=== PATIENT | female | born 1950 | race Caucasian/White ===

== ENCOUNTER 2023-06-06 13:29 | Outpatient (OUT) | payer MEDICARE, MEDICAID, SELFPAY ==
--- NOTE | 2023-06-06 13:46 | US_ITS ---
[place] [id number] Patient Name: MATEO MANSFIELD MRN: [id number] date: 1950 Sex: F Assigned Patient Location: [place] Current Patient Location: Accession/Order Number: [id number] Exam Date: 06/06/2023 13:52 Report Date: 06/06/2023 18:03 At the request of: ROBERT SCHWARTZ Procedure: US venous doppler LE RT EXAMINATION: US venous doppler LE RT HISTORY: Right Leg Pain M79.604 COMPARISON: No relevant comparison available. TECHNIQUE: Grayscale, color and Doppler FINDINGS: Region: Right leg Thrombus: None Flow: Normal Compressibility: Normal Augmentation: Normal US/US venous doppler LE RT IMPRESSION: No deep or superficial vein thrombus identified in the right leg *Exam performed in accordance with [facility] practice guidelines- Peripheral venous ultrasound, January 30, 2010. Electronically authenticated by: CHAITANYA CROCKER Date: 06/06/2023 18:03
== END 2023-06-06 13:30 | disposition home or self-care (01) ==
PROVIDERS: PCP Family Medicine; Visit Provider Family Medicine
DX: M79.604 Pain in right leg (principal)
CPT/HCPCS: 93971

== ENCOUNTER 2023-06-10 11:55 | Emergency (ER) | payer MEDICARE, MEDICAID, SELFPAY ==
--- NOTE | 2023-06-10 12:00 | ED_ITS ---
HPI - General Adult General Chief complaint: Allergic Reaction Stated complaint: RASH ON R SIDE OF BODY & BACK/REAR/ITCHY/PAIN Time Seen by Provider: 06/10/23 12:00 History of Present Illness HPI narrative: Patient presents to emergency department complaining of a rash. She states she has a rash to the right flank posteriorly and in bilateral gluteus. She states very itchy she has been applying recently without any relief. She states her skin is very dry. She is ALLERGIC to luis, She has not changed any detergents, soap, she states all of her clothes on embedding has been laundered. She has not been to any hotels. She is with her picture that they would not insect bites. Patient denies any fever, or chills. She denies any pain. Related Data Home Medications Medication Instructions Recorded Confirmed alprazolam 1 mg tablet 1 mg PO BID PRN anxiety 06/10/23 06/10/23 gabapentin 300 mg capsule 300 mg PO DAILY 06/10/23 06/10/23 latanoprost 0.005 % eye drops 1 drp ophthalmic (eye) .hs 06/10/23 06/10/23 levetiracetam 500 mg tablet 500 mg PO BID 06/10/23 06/10/23 metoprolol tartrate 25 mg tablet 25 mg PO BID 06/10/23 06/10/23 oxybutynin chloride 5 mg tablet 5 mg PO BID 06/10/23 06/10/23 oxycodone-acetaminophen 7.5 mg-325 2 tab PO DAILY PRN pain 06/10/23 06/10/23 mg tablet simvastatin 40 mg tablet 40 mg PO DAILY 06/10/23 06/10/23 Previous Rx's Medication Instructions Recorded diphenhydramine HCl 25 mg capsule 25 mg PO Q8H PRN itching #20 caps 06/10/23 (Benadryl) famotidine 20 mg tablet (Pepcid) 20 mg PO DAILY #10 tabs 06/10/23 prednisone 20 mg tablet 20 mg PO BID 5 days #10 tabs 06/10/23 Allergies Allergy/AdvReac Type Severity Reaction Status Date / Time Penicillins Allergy Severe Hives Verified 06/10/23 12:07 phenobarbital Allergy Severe Hives Verified 06/10/23 12:07 phenytoin [From Dilantin] Allergy Severe Hives Verified 06/10/23 12:07 luis Allergy Severe Redness of Uncoded 06/10/23 12:07 Skin Review of Systems ROS Status of ROS 10 or more systems reviewed and unremarkable except as noted in history and below [facility] Medical History (Updated 06/10/23 @ 12:47 by Barbara rBown MD) Social History Smoking status: Current every day smoker Exam Narrative Exam Narrative: Nurses notes and vital signs reviewed and patient is not hypoxic. General: Nontoxic, Well-appearing and in no apparent distress. Skin: Warm, dry, no pallor noted. Right flank will receive maculopapular rash with some excoriation noted. There are no vesicles. There is bilateral gluteal rash with erythema and scaly over the areas of pressure when seated. There are no vesicles, no signs of cellulitis, no ulceration. Head: Normocephalic, atraumatic. Neck: Supple, non-tender. Eye: Pupils are equal, round and EOMI. No scleral icterus. Ears, Nose, Mouth, and Throat: TM clear, no posterior oropharynx erythema or nasal mucosal hypertrophy, uvula is mid-line Oral mucosa is moist Cardiovascular: Regular Rate and Rhythm without murmur, gallop or rub. Respiratory: No accessory muscle use or respiratory distress. Lungs are clear to auscultation, no wheezing, rales or rhonchi Chest Wall: no tenderness Back: No midline thoracic or lumbar vertebral tenderness. No CVA tenderness Musculoskeletal: normal ROM, no calf or popliteal tenderness, no lower extremity edema/swelling GI: Abdomen is soft, non-distended. Normal bowel sounds. No masses appreciated. No tenderness to palpation. No rebound, guarding, or rigidity noted. Neurological: A&O x4. No cranial nerve dysfunction observed. No truncal ataxia. Moves all extremities. Sensation intact. Psychiatric: Cooperative and interactive. Normal mood and affect. Constitutional Vital Signs, click to edit/add: Last Vital Signs Temp 98.5 F 06/10/23 12:08 Pulse 69 06/10/23 12:08 Resp 16 06/10/23 12:08 BP 160/81 H 06/10/23 12:08 Pulse Ox 95 06/10/23 12:08 O2 Del Method Room Air 06/10/23 12:08 Course Vital Signs Vital signs: Vital Signs Temperature 98.5 F 06/10/23 12:08 Pulse Rate 69 06/10/23 12:08 Respiratory Rate 16 06/10/23 12:08 Blood Pressure 160/81 H 06/10/23 12:08 Pulse Oximetry 95 06/10/23 12:08 Oxygen Delivery Method Room Air 06/10/23 12:08 Temperature 98.5 F 06/10/23 12:08 Pulse Rate 69 06/10/23 12:08 Respiratory Rate 16 06/10/23 12:08 Blood Pressure 160/81 H 06/10/23 12:08 Pulse Oximetry 95 06/10/23 12:08 Oxygen Delivery Method Room Air 06/10/23 12:08 Medical Decision Making MDM Narrative Medical decision making narrative: Patient has been using hydrocortisone cream. She was given a prescription for a steroid, Famotidine, and Benadryl. At this time the patient is without objective evidence of an acute process requiring hospitalization or inpatient management. The patient has remained hemodynamically stable. No additional indication for emergent studies at this time. I answered all questions. Discussed discharge instructions including standard anticipatory guidance and what should prompt a return to the emergency department, including if they get worse are not getting better or develops any new or concerning symptoms. I've given them specific time frame in which to follow-up, and who to follow-up with. The patient demonstrates understanding. Patient is nontoxic and stable for discharge with outpatient follow-up. This note was created with the assistance of a speech recognition program. Although the intention is to generate documents that actually reflects the content of the visit, no guarantees can be provided that every mistake has been identified and corrected by editing. Discharge Plan Discharge Chief Complaint: Allergic Reaction Clinical Impression: Allergic (intrinsic) eczema Patient Disposition: Home, Self-Care Time of Disposition Decision: 12:45 Condition: Good Prescriptions / Home Meds: New prednisone 20 mg tablet 20 mg PO BID 5 Days Qty: 10 0RF famotidine [Pepcid] 20 mg tablet 20 mg PO DAILY Qty: 10 0RF diphenhydramine HCl [Benadryl] 25 mg capsule 25 mg PO Q8H PRN (Reason: itching) Qty: 20 0RF No Action alprazolam 1 mg tablet 1 mg PO BID PRN (Reason: anxiety) gabapentin 300 mg capsule 300 mg PO DAILY latanoprost 0.005 % drops 1 drp OPHTHALMIC (EYE) .hs levetiracetam 500 mg tablet 500 mg PO BID metoprolol tartrate 25 mg tablet 25 mg PO BID oxycodone-acetaminophen 7.5-325 mg tablet 2 tab PO DAILY PRN (Reason: pain) simvastatin 40 mg tablet 40 mg PO DAILY oxybutynin chloride 5 mg tablet 5 mg PO BID Instructions: Eczema (ED), Dermatitis (ED) Stand Alone Forms: Portal Instructions Referrals: Olga Holloway MD [Primary Care Provider] - 1 week Discharge Date/Time: 06/10/23 13:00
[2023-06-10 12:08] VITALS: BP 160/81; PULSE 69; RESP 16; TEMP 36.9; O2SAT 95; BMI 33.3
== END 2023-06-10 13:00 | disposition home or self-care (01) ==
PROVIDERS: Emergency Provider Emergency Medicine; PCP Family Medicine
DX: L23.9 Allergic contact dermatitis, unspecified cause (principal); Z79.899 Other long term (current) drug therapy; F17.210 Nicotine dependence, cigarettes, uncomplicated
CPT/HCPCS: 99281

== ENCOUNTER 2023-07-29 15:41 | Emergency (ER) | payer MEDICARE, MEDICAID, SELFPAY ==
[2023-07-29 15:47] VITALS: BP 148/86; PULSE 108; RESP 18; TEMP 36.5; O2SAT 96; BMI 22.3
--- NOTE | 2023-07-29 15:55 | CT_ITS ---
The [address] [place], [place] [address] Patient Name: MATEO MANSFIELD MRN: [id number] date: 1950 Sex: F Assigned Patient Location: ER Current Patient Location: ED.MAIN Accession/Order Number: [id number] Exam Date: 07/29/2023 17:03 Report Date: 07/29/2023 18:46 At the request of: MARYJO BAIRES Procedure: CT abdomen pelvis w con EXAMINATION: CT abdomen pelvis w con REASON FOR EXAM: Abdominal pain COMPARISON: 04/05/2021. FINDINGS: Lung bases: No nodule, infiltrate or effusion. Abdominal findings: There is no evidence for acute pancreatitis. The main pancreatic duct drains to a minor papilla. There is mild distention of the gallbladder although no gallbladder wall thickening. The common bile duct measures 7 mm distally. There is no mass in the liver. There are numerous calcified granulomata in the spleen. A simple cyst measuring 2.2 cm mid left kidney. No hydronephrosis. There is atherosclerotic calcification of the abdominal aorta. No adenopathy in the retroperitoneum or mesentery. No dilatation of the small or large bowel. The appendix is normal. No free air. Small right adrenal adenoma is unchanged. Pelvic findings: Streak artifact from the left hip arthroplasty limits pelvic imaging. Prior hysterectomy. No distention of urinary bladder. No herniation of bowel into the inguinal regions. CT/CT abdomen pelvis w con IMPRESSION: 1. No evidence for acute or chronic pancreatitis. 2. Mild distention of the gallbladder without gallbladder wall thickening. Common bile duct caliber of 7 mm upper limits of normal. 3. No acute inflammatory process identified in the abdomen or pelvis. 4. No evidence for bowel obstruction or perforation. Electronically authenticated by: NOMI CASTELAN Date: 07/29/2023 18:46
--- NOTE | 2023-07-29 15:57 | ED.ABDPAIN1 ---
HPI - Abdominal Pain General Chief Complaint: Abdominal Pain Stated Complaint: ABD PAIN Time Seen by Provider: 07/29/23 15:43 History of Present Illness HPI narrative: patient is a 73-year-old female who presents to the emergency department for the evaluation of increasing abdominal pain. She states she has had diffuse left-sided abdominal pain for some time, over the last week it seems to be more intense. She has had no fevers, chills, nausea, vomiting, diarrhea. She last had a bowel movement three days ago. She does have a previous history of pancreatitis. She has had a total hysterectomy as well as an exploratory laparotomy, she denies any other abdominal surgeries. She states she had pancreatitis 2-3 years ago and was hospitalized in [place], she states she was told that the pancreatitis was secondary to long-term Depakote usage. She denies urinary symptoms. No sick contacts in the home. She reports most of her pain in the left lower quadrant radiating to the left upper quadrant and today she has noted minimal epigastric pain. Related Data Home Medications Medication Instructions Recorded Confirmed alprazolam 1 mg tablet 1 mg PO BID PRN anxiety 06/10/23 06/10/23 gabapentin 300 mg capsule 300 mg PO DAILY 06/10/23 06/10/23 latanoprost 0.005 % eye drops 1 drp ophthalmic (eye) .hs 06/10/23 06/10/23 levetiracetam 500 mg tablet 500 mg PO BID 06/10/23 06/10/23 metoprolol tartrate 25 mg tablet 25 mg PO BID 06/10/23 06/10/23 oxybutynin chloride 5 mg tablet 5 mg PO BID 06/10/23 06/10/23 oxycodone-acetaminophen 7.5 mg-325 2 tab PO DAILY PRN pain 06/10/23 06/10/23 mg tablet simvastatin 40 mg tablet 40 mg PO DAILY 06/10/23 06/10/23 Previous Rx's Medication Instructions Recorded diphenhydramine HCl 25 mg capsule 25 mg PO Q8H PRN itching #20 caps 06/10/23 (Benadryl) famotidine 20 mg tablet (Pepcid) 20 mg PO DAILY #10 tabs 06/10/23 prednisone 20 mg tablet 20 mg PO BID 5 days #10 tabs 06/10/23 ciprofloxacin HCl 500 mg tablet 500 mg PO BID 7 days #14 tabs 07/29/23 (Cipro) hyoscyamine sulfate 0.125 mg 0.125 mg PO Q6H PRN abdominal pain 07/29/23 tablet (Levsin) #12 tabs ondansetron 4 mg disintegrating 4 mg PO Q6H PRN nausea and 07/29/23 tablet vomiting #12 tabs Allergies Allergy/AdvReac Type Severity Reaction Status Date / Time Penicillins Allergy Severe Hives Verified 07/29/23 15:50 phenobarbital Allergy Severe Hives Verified 07/29/23 15:50 phenytoin [From Dilantin] Allergy Severe Hives Verified 07/29/23 15:50 luis Allergy Severe Redness of Uncoded 07/29/23 15:50 Skin Review of Systems ROS Constitutional Denies: fever or chills Cardiovascular Denies: chest pain Respiratory Denies: shortness of breath or cough Gastrointestinal Reports: abdominal pain; Denies: nausea, vomiting or diarrhea Genitourinary Denies: painful urination Musculoskeletal Denies: back pain Integumentary/Breast Denies: rash Neurological Denies: headache PFSH PFS Medical History (Updated 07/29/23 @ 18:39 by ZORAIDA King) Social History Smoking status: Current every day smoker Exam Narrative Exam Narrative: Gen.: Awake, alert, in no distress Head: Normocephalic, atraumatic ENT: Moist mucous membranes Respiratory: No respiratory distress, lungs clear bilaterally Cardio: Regular rate and rhythm Gastrointestinal: Abdomen is soft, nondistended and nontender to palpation; no guarding or rebound. Well-healed surgical incision over the midline suprapubic abdomen Extremities: Moves extremities equally Psych: Normal mood and affect Neuro: No focal neuro deficit Skin: Warm, dry, intact Constitutional Vital Signs, click to edit/add: Last Vital Signs Temp 97.7 F 07/29/23 15:47 Pulse 108 H 07/29/23 15:47 Resp 18 07/29/23 15:47 BP 148/86 H 07/29/23 15:47 Pulse Ox 96 07/29/23 15:47 O2 Del Method Room Air 07/29/23 15:47 Course Vital Signs Vital signs: Vital Signs Temperature 97.7 F 07/29/23 15:47 Pulse Rate 108 H 07/29/23 15:47 Respiratory Rate 18 07/29/23 15:47 Blood Pressure 148/86 H 07/29/23 15:47 Pulse Oximetry 96 07/29/23 15:47 Oxygen Delivery Method Room Air 07/29/23 15:47 Temperature 97.7 F 07/29/23 15:47 Pulse Rate 108 H 07/29/23 15:47 Respiratory Rate 18 07/29/23 15:47 Blood Pressure 148/86 H 07/29/23 15:47 Pulse Oximetry 96 07/29/23 15:47 Oxygen Delivery Method Room Air 07/29/23 15:47 MDM - Abdominal Pain MDM Narrative Medical decision making narrative: patient treated with IV fluids, Toradol, Levsin, Zofran, Protonix. Abdomen is soft and benign in the Emergency Room, lab studies show minimal renal insufficiency and mild leukocytosis. LFTs, total bilirubin and lipase are unremarkable and urine specimen shows contaminated urinary tract infection but given the patient's abdominal pain and age we will treat for urinary tract infection with Cipro. She is discharged home with Zofran and Levsin. Her CT scan does show distention of the gallbladder with no thickening and common bile duct at the upper limit of normal, she has no right upper quadrant tenderness, normal bilirubin and LFTs. She is encouraged follow-up with her PCP and return to the Emergency Room if symptoms change or worsen Medical Records Attestation: I reviewed the patient's medical records. Lab Data Attestation: I reviewed the patient's lab results. Labs: Lab Results 07/29/23 Range/Units 16:00 WBC 13.6 H (4.0-11.0) 10^3/uL RBC 5.60 H (4.20-5.40) 10^6/uL Hgb 17.0 H (12.0-16.0) g/dL Hct 52.2 H (36.0-48.0) % MCV 93.2 (81.0-99.0) fL MCH 30.4 (26.7-34.0) pg MCHC 32.6 (29.9-35.2) g/dL RDW 14.0 (11.0-15.0) % Plt Count 762 H (150-450) 10^3/uL MPV 10.7 (9.5-13.5) fL Neut % (Auto) 58.8 (43.0-75.0) % Lymph % (Auto) 30.2 (20.5-60.0) % [place] % (Auto) 7.6 (1.7-12.0) % Eos % (Auto) 2.6 (0.9-7.0) % Baso % (Auto) 0.4 (0.2-2.0) % Neut # (Auto) 8.0 H (1.4-6.5) 10^3/uL Lymph # (Auto) 4.1 H (1.2-3.8) 10^3/uL [place] # (Auto) 1.0 H (0.3-0.8) 10^3/uL Eos # (Auto) 0.4 (0.0-0.7) 10^3/uL Baso # (Auto) 0.1 (0.0-0.1) 10^3/uL Abs Immat Gran (auto) 0.05 H (0.00-0.03) 10^3/uL Imm/Tot Granulo (auto) 0.4 (0.0-0.5) % Sodium 135 L (136-145) mmol/L Potassium 3.7 (3.5-5.1) mmol/L Chloride 96 L (98-107) mmol/L Carbon Dioxide 26.9 (21.0-32.0) mmol/L Anion Gap 15.8 BUN 20.0 H (7.0-18.0) mg/dL Creatinine 1.44 H (0.55-1.02) mg/dL Est GFR ( Amer) 43 L (>=60) Est GFR (Non-Af Amer) 35 L (>=60) BUN/Creatinine Ratio 13.9 Glucose 122 H (74-106) mg/dL Lactate 1.9 (0.4-2.0) mmol/L Calcium 9.8 (8.5-10.1) mg/dL Total Bilirubin 0.4 (0.2-1.0) mg/dL AST 26 (15-37) U/L ALT 30 (14-59) U/L Alkaline Phosphatase 76 (46-116) U/L Total Protein 8.1 (6.4-8.2) g/dL Albumin 4.2 (3.4-5.0) g/dL Globulin 3.9 g/dL Albumin/Globulin Ratio 1.1 Lipase 67.0 L (73.0-393.0) U/L Urine Color Lt. yellow (YELLOW) Urine Clarity Slightly cloudy A (CLEAR) Urine pH 6.0 (5.0-9.0) Ur Specific [place] 1.020 (1.005-1.025) Urine Protein Trace (NEG/TRACE) mg/dL Urine Glucose (UA) Negative (NEGATIVE) mg/dL Urine Ketones Negative (NEGATIVE) mg/dL Urine Occult Blood Negative (NEGATIVE) Urine Nitrite Negative (NEGATIVE) Urine Bilirubin Small A (NEGATIVE) Urine Urobilinogen 0.2 (0.2-1.0) EU/dL Ur Leukocyte Esterase Large A (NEGATIVE) Urine RBC 0-2 (0-2) #/HPF Urine WBC 2-5 A (NONE SEEN) #/HPF Ur Squamous Epith Cells Many A (NONE/RARE) #/LPF Urine Crystals None seen (None Seen) #/HPF Urine Bacteria Trace A (NONE SEEN) #/HPF Urine Casts None seen (NONE SEEN) #/LPF Urine Mucus None seen (NONE SEEN) Ur Culture Indicated? Yes POC Glucose 129 H (74-106) mg/dL Imaging Data CT scan - abdomen: Attestation: I have reviewed the pertinent imaging results. Discharge Plan Discharge Chief Complaint: Abdominal Pain Clinical Impression: Acute UTI, Abdominal pain Patient Disposition: Home, Self-Care Time of Disposition Decision: 18:38 Condition: Good Prescriptions / Home Meds: New ciprofloxacin HCl [Cipro] 500 mg tablet 500 mg PO BID 7 Days Qty: 14 0RF hyoscyamine sulfate [Levsin] 0.125 mg tablet 0.125 mg PO Q6H PRN (Reason: abdominal pain) Qty: 12 0RF ondansetron 4 mg tablet,disintegrating 4 mg PO Q6H PRN (Reason: nausea and vomiting) Qty: 12 0RF No Action alprazolam 1 mg tablet 1 mg PO BID PRN (Reason: anxiety) gabapentin 300 mg capsule 300 mg PO DAILY latanoprost 0.005 % drops 1 drp OPHTHALMIC (EYE) .hs levetiracetam 500 mg tablet 500 mg PO BID metoprolol tartrate 25 mg tablet 25 mg PO BID oxycodone-acetaminophen 7.5-325 mg tablet 2 tab PO DAILY PRN (Reason: pain) simvastatin 40 mg tablet 40 mg PO DAILY oxybutynin chloride 5 mg tablet 5 mg PO BID prednisone 20 mg tablet 20 mg PO BID 5 Days Qty: 10 0RF famotidine [Pepcid] 20 mg tablet 20 mg PO DAILY Qty: 10 0RF diphenhydramine HCl [Benadryl] 25 mg capsule 25 mg PO Q8H PRN (Reason: itching) Qty: 20 0RF Instructions: Urinary Tract Infection in Women (ED), Acute Abdominal Pain (ED) Stand Alone Forms: Portal Instructions Referrals: Olga Holloway MD [Primary Care Provider] - 1 week
[2023-07-29 16:07] LABS: Glucometer 129 mg/dL (74-106)
[2023-07-29 16:14] LABS: Basophils Absolute Auto 0.1 10^3/uL (0.0-0.1); Basophils Percent Auto 0.4 % (0.2-2.0); Eosinophils Absolute Auto 0.4 10^3/uL (0.0-0.7); Eosinophils Percent Auto 2.6 % (0.9-7.0); Hematocrit 52.2 % (36.0-48.0); Immature Granulocytes Abs Auto 0.05 10^3/uL (0.00-0.03); Immature Granulocytes Pct Auto 0.4 % (0.0-0.5); Lymphocytes Absolute Auto 4.1 10^3/uL (1.2-3.8); Lymphocytes Percent Auto 30.2 % (20.5-60.0); Mean Corpuscular HGB Conc 32.6 g/dL (29.9-35.2); Mean Corpuscular Hemoglobin 30.4 pg (26.7-34.0); Mean Corpuscular Volume 93.2 fL (81.0-99.0); Mean Platelet Volume 10.7 fL (9.5-13.5); Monocytes Percent Auto 7.6 % (1.7-12.0); Neutrophils Percent Auto 58.8 % (43.0-75.0); Platelet Count 762 10^3/uL (150-450); White Blood Count 13.6 10^3/uL (4.0-11.0)
[2023-07-29 16:25] LABS: Bilirubin Urine SMALL (NEGATIVE); Blood Urine NEGATIVE (NEGATIVE); Clarity Urine SLIGHTLY CLOUDY (CLEAR); Color Urine LT. YELLOW (YELLOW); Glucose Urine UA NEGATIVE (NEGATIVE); Ketones Urine NEGATIVE (NEGATIVE); Leukocyte Esterase Urine LARGE (NEGATIVE); Nitrite Urine NEGATIVE (NEGATIVE); Protein Urine TRACE mg/dL (NEG/TRACE); Urine Microscopic Indicated YES; Urobilinogen Urine 0.2 EU/dL (0.2-1.0)
[2023-07-29 16:29] LABS: Alanine Aminotransferase 30 U/L (14-59); Alkaline Phosphatase 76 U/L (46-116); Anion Gap 15.8; Aspartate Amino Transferase 26 U/L (15-37); BUN Creatinine Ratio 13.9; Bilirubin Total 0.4 mg/dL (0.2-1.0); Calcium 9.8 mg/dL (8.5-10.1); Carbon Dioxide 26.9 mmol/L (21.0-32.0); Chloride 96 mmol/L (98-107); Estimated GFR (African America 43 (>=60); Estimated GFR (Non-African Ame 35 (>=60); Glucose 122 mg/dL (74-106); Potassium 3.7 mmol/L (3.5-5.1); Sodium 135 mmol/L (136-145); Total Protein 8.1 g/dL (6.4-8.2)
[2023-07-29] MEDS: HYOSCYAMINE SULFATE 0.125 MG TAB.SUBL SL (16:30)
[2023-07-29] MEDS: KETOROLAC TROMETHAMINE 30 MG/ML VIAL 15 MG IVP (16:30)
[2023-07-29] MEDS: 0.9 % SODIUM CHLORIDE 1,000 ML 999 ML IV (16:30)
[2023-07-29 16:31] LABS: Bacteria Urine TRACE #/HPF (NONE SEEN); Cast Seen? NONE SEEN #/LPF (NONE SEEN); Crystals Seen? None Seen #/HPF (None Seen); Lactate/Lactic Acid 1.9 mmol/L (0.4-2.0); Mucus Urine NONE SEEN (NONE SEEN); RBC Urine 0-2 #/HPF (0-2); Squamous Epithelial Cell Urine MANY #/LPF (NONE/RARE)
[2023-07-29] MEDS: PANTOPRAZOLE SODIUM 40 MG VIAL IV (16:31)
[2023-07-29] MEDS: ONDANSETRON PF 4 MG/2 ML VIAL IV (16:31)
[2023-07-29 16:32] LABS: Urine Culture Indicated YES
[2023-07-29 16:41] LABS: Albumin Globulin Ratio 1.1; Albumin Level 4.2 g/dL (3.4-5.0); Globulin 3.9 g/dL
[2023-07-29] MEDS: CIPROFLOXACIN HCL 500 MG TABLET PO (18:46)
== END 2023-07-29 18:48 | disposition home or self-care (01) ==
PROVIDERS: Physician Assistant; Emergency Provider Emergency Medicine; PCP Family Medicine
DX: N39.0 Urinary tract infection, site not specified (principal); R10.9 Unspecified abdominal pain; Z90.710 Acquired absence of both cervix and uterus; Z79.899 Other long term (current) drug therapy; F17.210 Nicotine dependence, cigarettes, uncomplicated
CPT/HCPCS: 36415; 74177; 80053; 81001; 83605; 83690; 85025; 87086; 87150; 96374; 96375; 99285; Q9967

== ENCOUNTER 2024-02-08 13:27 | Observation (INO) | payer MEDICARE, MEDICAID, SELFPAY ==
[2024-02-08] VITALS (22 sets, daily range): BP systolic 125–184; BP diastolic 71–106; PULSE 63–89; TEMP 36.4–36.9; O2SAT 91–98; BMI 22.3; BMI 21.9
[2024-02-08 13:40] LABS: Glucometer 104 mg/dL (74-106)
--- NOTE | 2024-02-08 13:48 | ED.NEUROSD1 ---
HPI - Neuro Symptoms/Deficit General Chief Complaint: Neuro Symptoms/Deficit Stated Complaint: CVA SYMPTOMS Time Seen by Provider: 02/08/24 13:36 Source: patient and family Mode of arrival: Wheelchair Limitations: no limitations History of Present Illness HPI Narrative: This patient is here with slurring of her speech. She is here with her sister. Her sister went over to visit today and noticed that her speech was abnormal so she brought her to the ER. This patient does understand my questions and indicates that her speech problem started last Monday. She lives with her but she is the primary caregiver. He is not able to contribute much to her overall health care and wellbeing according to the sister. She had a right temporal headache last night. She has not had any vomiting. She has not had a previous stroke. She is not Skin: Any in glands or past there. She has not noticed any clumsiness of her upper or lower limbs. She says the bottom of her feet hurt. Her sister said that they have wooden floors and she has been walking on the floor since they just recently moved. Related Data Home Medications ?Medication ?Instructions ?Recorded ?Confirmed alprazolam 1 mg tablet 1 mg PO BID PRN anxiety 06/10/23 06/10/23 gabapentin 300 mg capsule 300 mg PO DAILY 06/10/23 06/10/23 latanoprost 0.005 % eye drops 1 drp ophthalmic (eye) .hs 06/10/23 06/10/23 levetiracetam 500 mg tablet 500 mg PO BID 06/10/23 06/10/23 metoprolol tartrate 25 mg tablet 25 mg PO BID 06/10/23 06/10/23 oxybutynin chloride 5 mg tablet 5 mg PO BID 06/10/23 06/10/23 oxycodone-acetaminophen 7.5 mg-325 2 tab PO DAILY PRN pain 06/10/23 06/10/23 mg tablet simvastatin 40 mg tablet 40 mg PO DAILY 06/10/23 06/10/23 Previous Rx's ?Medication ?Instructions ?Recorded diphenhydramine HCl 25 mg capsule 25 mg PO Q8H PRN itching #20 caps 06/10/23 (Benadryl) famotidine 20 mg tablet (Pepcid) 20 mg PO DAILY #10 tabs 06/10/23 prednisone 20 mg tablet 20 mg PO BID 5 days #10 tabs 06/10/23 ciprofloxacin HCl 500 mg tablet 500 mg PO BID 7 days #14 tabs 07/29/23 (Cipro) hyoscyamine sulfate 0.125 mg 0.125 mg PO Q6H PRN abdominal pain 07/29/23 tablet (Levsin) #12 tabs ondansetron 4 mg disintegrating 4 mg PO Q6H PRN nausea and 07/29/23 tablet vomiting #12 tabs Allergies Allergy/AdvReac Type Severity Reaction Status Date / Time Penicillins Allergy Severe Hives Verified 02/08/24 13:34 phenobarbital Allergy Severe Hives Verified 02/08/24 13:34 phenytoin [From Dilantin] Allergy Severe Hives Verified 02/08/24 13:34 luis Allergy Severe Redness of Uncoded 02/08/24 13:34 Skin PFSH PFS Medical History (Updated 02/08/24 @ 14:49 by Jostin Edwards MD) Pancreatitis ?K85.90 - Acute pancreatitis without necrosis or infection, unspecified (ICD-10) Glaucoma ?H40.9 - Unspecified glaucoma (ICD-10) Arthritis ?M19.90 - Unspecified osteoarthritis, unspecified site (ICD-10) Osteoporosis ?M81.0 - Age-related osteoporosis without current pathological fracture (ICD-10) Hypercholesteremia ?E78.00 - Pure hypercholesterolemia, unspecified (ICD-10) Hypertension ?I10 - Essential (primary) hypertension (ICD-10) Seizure ?R56.9 - Unspecified convulsions (ICD-10) Social History Smoking status: Current every day smoker Exam Narrative Exam Narrative: Awake alert pleasant clearly has dysarthria, with no apparent expressive or receptive aphasia. She follows all simple commands. Does not have a headache at this time. She is pleasant mildly in the early maintains a good sense of humor. Her sister is here with her at the time. Cranial nerves II through XII are normal with slight left-sided facial asymmetry. The tongue protrudes in midline. The uvula rises normally. She has no apparent head trauma or injury bruising or ecchymosis. Motor examination to the extremities is normal with no pronator drift. Her overall NIH stroke score is 1. Heart rate and rhythm are normal sinus rhythm I do not hear a murmur. She has no respiratory distress. Her extremity showed no evidence of DVT phlebitis or edema. Constitutional Vital Signs, click to edit/add: Last Vital Signs Temp 98.3 F 02/08/24 13:34 Pulse 88 02/08/24 13:34 Resp 14 02/08/24 13:34 BP 184/93 H 02/08/24 13:34 Pulse Ox 98 02/08/24 13:34 O2 Del Method Room Air 02/08/24 13:34 Course Vital Signs Vital signs: Vital Signs Temperature 98.3 F 02/08/24 13:34 Pulse Rate 88 02/08/24 13:34 Respiratory Rate 14 02/08/24 13:34 Blood Pressure 184/93 H 02/08/24 13:34 Pulse Oximetry 98 02/08/24 13:34 Oxygen Delivery Method Room Air 02/08/24 13:34 Temperature 98.3 F 02/08/24 13:34 Pulse Rate 88 02/08/24 13:34 Respiratory Rate 14 02/08/24 13:34 Blood Pressure 184/93 H 02/08/24 13:34 Pulse Oximetry 98 02/08/24 13:34 Oxygen Delivery Method Room Air 02/08/24 13:34 MDM - Neuro Symptoms/Deficit MDM Narrative Medical decision making narrative: This patient had onset of symptoms 5 days ago and she did not come to the hospital until her sister visited her today and insisting that she do so. Her initial CT without contrast is negative. I contacted the primary care doctor and he would like to get a telestroke evaluation to help facilitate telemetry neurology evaluation when she is admitted. I will start her on aspirin 324 mg since she is not on it at this time. Lab Data Labs: Lab Results 02/08/24 Range/Units 13:37 POC Glucose 104 (74-106) mg/dL Discharge Plan Discharge Chief Complaint: Neuro Symptoms/Deficit Clinical Impression: Dysarthria Patient Disposition: Admitted as Observation Time of Disposition Decision: 14:49 Prescriptions / Home Meds: No Action alprazolam 1 mg tablet 1 mg PO BID PRN (Reason: anxiety) gabapentin 300 mg capsule 300 mg PO DAILY latanoprost 0.005 % drops 1 drp OPHTHALMIC (EYE) .hs levetiracetam 500 mg tablet 500 mg PO BID metoprolol tartrate 25 mg tablet 25 mg PO BID oxycodone-acetaminophen 7.5-325 mg tablet 2 tab PO DAILY PRN (Reason: pain) simvastatin 40 mg tablet 40 mg PO DAILY oxybutynin chloride 5 mg tablet 5 mg PO BID prednisone 20 mg tablet 20 mg PO BID 5 Days Qty: 10 0RF famotidine [Pepcid] 20 mg tablet 20 mg PO DAILY Qty: 10 0RF diphenhydramine HCl [Benadryl] 25 mg capsule 25 mg PO Q8H PRN (Reason: itching) Qty: 20 0RF ciprofloxacin HCl [Cipro] 500 mg tablet 500 mg PO BID 7 Days Qty: 14 0RF hyoscyamine sulfate [Levsin] 0.125 mg tablet 0.125 mg PO Q6H PRN (Reason: abdominal pain) Qty: 12 0RF ondansetron 4 mg tablet,disintegrating 4 mg PO Q6H PRN (Reason: nausea and vomiting) Qty: 12 0RF Print Language: [place] Referrals: Olga Holloway MD [Primary Care Provider] - 1 week
--- NOTE | 2024-02-08 13:49 | ECG_ITS ---
[facility] Test Date: 2024-02-08 Pat Name: MATEO MANSFIELD Department: Room: - Gender: Female Underwriting Analyst: : 1950 Requested By: ROBERT SCHWARTZ Order Number: [id number] Reading MD: CHRISTOPH SCHMIDT Measurements Intervals [place] Rate: 83 P: 71 PA: 170 QRS: 29 QRSD: 76 T: 69 QT: 356 QTc: 395 Interpretive Statements 1100 Sinus rhythm 1102 Sinus arrhythmia 9110 normal ECG Compared to ECG 04/05/2021 18:47:34 No significant changes Electronically Signed On 02-09-2024 6:56:09 EDT by CHRISTOPH SCHMIDT
--- NOTE | 2024-02-08 13:49 | CT_ITS ---
The [place] [id number] Patient Name: MATEO MANSFIELD MRN: [id number] date: 1950 Sex: F Assigned Patient Location: ER Current Patient Location: Accession/Order Number: [id number] Exam Date: 02/08/2024 13:57 Report Date: 02/08/2024 14:19 At the request of: SPENSER GODOY Procedure: CT stroke head/brain wo con EXAMINATION: CT stroke head/brain wo con HISTORY: Slurred speech COMPARISON: No relevant comparison available. TECHNIQUE: Axial CT images were obtained without IV contrast. Dose reduction techniques were achieved by using automated exposure control and/or adjustment of mA and/or kV according to patient size and/or use of iterative reconstruction technique. FINDINGS: BRAIN: No edema, hemorrhage, mass, acute infarction, or inappropriate atrophy. CSF SPACES: No hydrocephalus, subarachnoid hemorrhage, or mass. Calcifications within the choroid plexus extending into the temporal horns, fairly symmetric bilaterally. Appropriate ventricle size for age. SKULL: No fracture, mass, or other significant visible lesion. SINUSES: No significant mucosal thickening or fluid on the limited views. ORBITS: No appreciable abnormality on the limited views. OTHER: Negative CT/CT stroke head/brain wo con IMPRESSION: 1. No intracranial hemorrhage or CT evidence of acute ischemia. Consider follow-up MRI of the brain. 2. Age consistent atrophy and chronic small vessel ischemic changes. Electronically authenticated by: RAIN HOWE Date: 02/08/2024 14:19
--- NOTE | 2024-02-08 13:49 | XR_ITS ---
The [address] [address] Patient Name: MATEO MANSFIELD MRN: [id number] date: 1950 Sex: F Assigned Patient Location: ER Current Patient Location: ER Accession/Order Number: [id number] Exam Date: 02/08/2024 13:58 Report Date: 02/08/2024 14:21 At the request of: SPENSER GODOY Procedure: XR chest 1V EXAMINATION: XR chest 1V HISTORY: Stroke COMPARISON: XR chest 04/13/2022 FINDINGS: LUNGS: No acute pulmonary parenchymal abnormalities. Hyperexpanded lungs suggestive of COPD. VASCULATURE: No increased pulmonary vasculature. PLEURA: No pneumothorax, effusion, or pleural thickening. CARDIAC: No cardiomegaly or cardiac silhouette abnormality. MEDIASTINUM: No visible mass or adenopathy. BONES: Mechanical fusion of lower cervical spine. Right shoulder replacement. OTHER: Negative. XR/XR chest 1V IMPRESSION: 1. No acute or suspicious cardiopulmonary process. Electronically authenticated by: RAIN HOWE Date: 02/08/2024 14:21
[2024-02-08 13:56] LABS: Basophils Absolute Auto 0.1 10^3/uL (0.0-0.1); Basophils Percent Auto 0.4 % (0.2-2.0); Eosinophils Absolute Auto 0.3 10^3/uL (0.0-0.7); Eosinophils Percent Auto 1.9 % (0.9-7.0); Hematocrit 48.8 % (36.0-48.0); Hemoglobin 15.8 g/dL (12.0-16.0); Immature Granulocytes Abs Auto 0.03 10^3/uL (0.00-0.03); Immature Granulocytes Pct Auto 0.2 % (0.0-0.5); Lymphocytes Absolute Auto 2.7 10^3/uL (1.2-3.8); Lymphocytes Percent Auto 20.3 % (20.5-60.0); Mean Corpuscular HGB Conc 32.4 g/dL (29.9-35.2); Mean Corpuscular Hemoglobin 30.2 pg (26.7-34.0); Mean Corpuscular Volume 93.1 fL (81.0-99.0); Mean Platelet Volume 10.5 fL (9.5-13.5); Monocytes Absolute Auto 1.1 10^3/uL (0.3-0.8); Monocytes Percent Auto 8.1 % (1.7-12.0); Neutrophils Absolute Auto 9.3 10^3/uL (1.4-6.5); Neutrophils Percent Auto 69.1 % (43.0-75.0); Platelet Count 585 10^3/uL (150-450); Red Blood Count 5.24 10^6/uL (4.20-5.40); Red Cell Distribution Width 13.9 % (11.0-15.0); White Blood Count 13.4 10^3/uL (4.0-11.0)
[2024-02-08 14:06] LABS: Alanine Aminotransferase 25 U/L (14-59); Albumin Globulin Ratio 1.1; Alkaline Phosphatase 80 U/L (46-116); Anion Gap 12.7; Aspartate Amino Transferase 31 U/L (15-37); BUN Creatinine Ratio 17.9; Bilirubin Total 0.4 mg/dL (0.2-1.0); Calcium 9.5 mg/dL (8.5-10.1); Chloride 100 mmol/L (98-107); Estimated GFR (African America >60 (>=60); Estimated GFR (Non-African Ame 51 (>=60); Globulin 3.7 g/dL; Glucose 105 mg/dL (74-106); Potassium 3.7 mmol/L (3.5-5.1); Sodium 137 mmol/L (136-145); Total Protein 7.7 g/dL (6.4-8.2)
[2024-02-08 14:09] LABS: INR 1.05; Prothrombin Time 11.1 sec (9.0-11.6)
[2024-02-08 14:45] LABS: Bilirubin Urine NEGATIVE (NEGATIVE); Blood Urine NEGATIVE (NEGATIVE); Clarity Urine CLEAR (CLEAR); Color Urine YELLOW (YELLOW); Glucose Urine UA NEGATIVE (NEGATIVE); Ketones Urine NEGATIVE (NEGATIVE); Leukocyte Esterase Urine SMALL (NEGATIVE); Nitrite Urine NEGATIVE (NEGATIVE); Protein Urine TRACE mg/dL (NEG/TRACE); Specific Gravity Urine 1.025 (1.005-1.025); Urine Microscopic Indicated YES; Urobilinogen Urine 0.2 EU/dL (0.2-1.0); pH Urine 5.5 (5.0-9.0)
[2024-02-08 14:52] LABS: Bacteria Urine MODERATE #/HPF (NONE SEEN); Cast Seen? NONE SEEN #/LPF (NONE SEEN); Crystals Seen? None Seen #/HPF (None Seen); Mucus Urine TRACE (NONE SEEN); RBC Urine 0-2 #/HPF (0-2); Squamous Epithelial Cell Urine MODERATE #/LPF (NONE/RARE); Urine Culture Indicated YES
[2024-02-08] MEDS: ASPIRIN 81 MG TAB.CHEW 324 MG PO (15:02)
--- NOTE | 2024-02-08 17:16 | CA_ITS ---
Patient Name: MATEO MANSFIELD MR#: [id number] : 1950 Exam Date: 02/09/2024 Ordering Doctor: DR Manuel Pineda . ECHOCARDIOGRAM REPORT PROCEDURE: CA ECHO DOPPLER COMPLETE INDICATIONS: Dysarthria, hypertension COMPARISON: None. DESCRIPTION: COMPLETE ECHOCARDIOGRAM Real-time transthoracic echocardiography with 2D, M-mode, spectral and color flow Doppler performed. QUALITY: Technical quality was good. 64 , 127#, BSA 1.61 m2, BP 138/65 LEFT VENTRICLE: Normal chamber size. Normal left ventricular wall thickness. Normal systolic function. LV EF: Normal left ventricular ejection fraction, (>55%). DIASTOLIC: Normal diastolic function. ATRIAL SEPTUM: LEFT ATRIUM: Normal chamber size. RIGHT ATRIUM: Normal chamber size. RIGHT VENTRICLE: Normal chamber size. Normal right ventricular systolic function. TRICUSPID VALVE: Normal mobility and thickness. No stenosis with mild to moderate regurgitation. No evidence of pulmonary hypertension. RVSP 23 mmHg MITRAL VALVE: Normal mobility and thickness. No evidence of mitral valve stenosis. There is no mitral annular calcification. Trivial mitral regurgitation. AORTIC VALVE: Normal trileaflet appearance. No visible sclerosis. Normal leaflet mobility. No evidence of aortic valve stenosis. No aortic regurgitation. AORTIC ROOT: Normal diameter and appearance. PULMONIC VALVE: Normal thickness and mobility. No stenosis. No regurgitation. PERICARDIUM: Anterior free space, small effusion versus fat pad. IVC: Collapses with inspirations. IVC is normal in size. PLEURA: CONCLUSION: 1. Normal ventricular size and systolic function. LVEF is 55 to 60%. 2. No significant valvular dysfunction. 3. Normal right-sided pressures. 4. Anterior free space, small effusion versus fat pad. Adult Echocardiography Procedure Report Left Ventricle LVEDD (3.7 - 5.6 cm): 3.89 cm LVESD (2.2 - 4.0 cm): 2.62 cm LVIVS thickness (0.6 - 1.2 cm): 0.82 cm LVPW thickness (0.5 - 1.0 cm): 0.87 cm e': 0.06 m/s E - e': 8.72 LVOT Max Gradient: 3.71 mm[Hg] LVOT Area (cm2): 0.96 m/s Peak Velocity (LVOT): 0.96 m/s Mean Velocity (LVOT): 0.69 m/s LVOT Diameter 2.13 cm Left Atrium LA Volume Index (2D A2C): 31.02 ml/m2 Left Atrium Systolic Dimension: 2.54 cm Mitral Valve MV E to A Ratio: 0.64 Mitral Valve A-Wave Peak Velocity: 0.86 m/s Mitral Valve E-Wave Peak Velocity: 0.55 m/s Right Ventricle Aorta AO Root Diam: 3.10 cm Aortic Valve AoV Area (Peak Cory): 2.39 cm2, 2.39 cm2 AoV Area (VTI): 2.93 cm2, 2.93 cm2 Peak Velocity(Antegrade Flow): 1.43 m/s Peak Gradient(Antegrade Flow): 8.20 mm[Hg] Mean Velocity(Antegrade Flow): 0.89 m/s Mean Gradient(Antegrade Flow): 3.73 mm[Hg] Velocity Time Integral: 29.05 cm Tricuspid Valve Peak Velocity (Regurgitant Flow): 2.25 m/s, 2.20 m/s Pulmonic Valve Mean Gradient: 1.04 mm[Hg] Mean Velocity: 0.48 m/s Peak Velocity: 0.66 m/s, 0.83 m/s Peak Gradient: 2.78 mm[Hg], 1.76 mm[Hg] Right Atrium Right Atrium Systolic Pressure: 39.47 ml, 39.47 ml Dictated by: Sanjiv Comer M.D. on 02/09/2024 at 16:27 Approved by: Sanjiv Comer M.D. on 02/09/2024 at 16:31
--- NOTE | 2024-02-08 17:16 | US_ITS ---
The [address] [address] Patient Name: MATEO MANSFIELD MRN: [id number] date: 1950 Sex: F Assigned Patient Location: MS Current Patient Location: MS Accession/Order Number: [id number] Exam Date: 02/08/2024 19:15 Report Date: 02/08/2024 20:50 At the request of: TABATHA ONEIL Procedure: US carotid duplex BI CLINICAL HISTORY: Dysarthria COMPARISON: None Right Carotid: Doppler spectrum analysis: CCA systolic: proximal 112 cm/sec, middle 98 cm/sec, distal 73 cm/sec. ICA systolic: proximal 81 cm/sec, middle 108 cm/sec, distal 116 cm/sec. ECA systolic: 89 cm/sec ICA/CCA ratio: 1.03 Spectral broadening: None Atherosclerosis: Calcific plaque is seen at the carotid bulb. There is approximately 69% stenosis of the proximal internal carotid artery. Vertebral artery flow is antegrade. Left Carotid: Doppler spectrum analysis: CCA systolic: proximal 112 cm/sec, middle 89 cm/sec, distal 124 cm/sec. ICA systolic: proximal 71 cm/sec, middle 67 cm/sec, distal 110 cm/sec. ECA systolic: 108 cm/sec ICA/CCA ratio: 0.89 Spectral broadening: None Atherosclerosis: Atherosclerosis is seen at the carotid bulb. Vertebral artery flow is antegrade. US/US carotid duplex BI IMPRESSION: There is approximately 69% stenosis of the proximal right internal carotid artery. No significant stenosis on the left. Electronically authenticated by: MERY JORGE Date: 02/08/2024 20:50
--- NOTE | 2024-02-08 18:28 | P.HP_ITS ---
HPI H&P: HPI History of Present Illness Chief complaint: CVA SYMPTOMS, Dysarthria Narrative: Patient presented to the emergency room at the family's encouragement secondary to dysarthria. This happened approximately 6 days prior to admission. She thought it would just resolve on its own but it has not. She is has difficulty with word finding. When I saw the patient up on the medical surgical floor, she was resting comfortably, no other specific complaint but she can tell from her speech pattern that she has to be more deliberate with her speech. She does appear to come up with the right words. But is very slow. Opioid HPI Opioid Management Most Recent Opioid Data: Last Pain Assessment 02/08/24 18:22 [facility] PFS Medical History (Updated 02/08/24 @ 14:49 by Jostin Edwards MD) Pancreatitis ?K85.90 - Acute pancreatitis without necrosis or infection, unspecified (ICD- 10) Glaucoma ?H40.9 - Unspecified glaucoma (ICD-10) Arthritis ?M19.90 - Unspecified osteoarthritis, unspecified site (ICD-10) Osteoporosis ?M81.0 - Age-related osteoporosis without current pathological fracture (ICD- 10) Hypercholesteremia ?E78.00 - Pure hypercholesterolemia, unspecified (ICD-10) Hypertension ?I10 - Essential (primary) hypertension (ICD-10) Seizure ?R56.9 - Unspecified convulsions (ICD-10) Surgical History (Updated 02/08/24 @ 16:26 by Lisa Forrester RN) H/O: hysterectomy ?Z90.710 - Acquired absence of both cervix and uterus (ICD-10) H/O cervical spinal arthrodesis ?Z98.1 - Arthrodesis status (ICD-10) History of left hip replacement ?Z96.642 - Presence of left artificial hip joint (ICD-10) Family History (Updated 02/08/24 @ 16:28 by Lisa Forrester RN) Mother Family history of cancer Family history of diabetes mellitus Grandmother Family history of diabetes mellitus Brother Family history of myocardial infarction Family history of hypertension Social History (Updated 02/08/24 @ 16:28 by Lisa Forrester, YINA) Within the past year, how often did you have a drink containing alcohol: never Score interpretation: A score less than 3 is consistent with normal alcohol consumption. Smoking status: Current every day smoker Non-prescribed substance use: denies use Highest level of school completed/degree received: high school graduate Meds Home Medications and Allergies Home Medications ?Medication ?Instructions ?Recorded ?Confirmed ?Type alprazolam 1 mg tablet 1 mg PO BID PRN anxiety 06/10/23 02/08/24 History diphenhydramine HCl 25 mg capsule 25 mg PO Q8H PRN itching #20 caps 06/10/23 02/08/24 Rx (Benadryl) famotidine 20 mg tablet (Pepcid) 20 mg PO DAILY #10 tabs 06/10/23 02/08/24 Rx gabapentin 300 mg capsule 300 mg PO DAILY 06/10/23 02/08/24 History latanoprost 0.005 % eye drops 1 drp ophthalmic (eye) .hs 06/10/23 02/08/24 History levetiracetam 500 mg tablet 500 mg PO BID 06/10/23 02/08/24 History metoprolol tartrate 25 mg tablet 25 mg PO BID 06/10/23 02/08/24 History oxybutynin chloride 5 mg tablet 5 mg PO BID 06/10/23 02/08/24 History oxycodone-acetaminophen 7.5 mg-325 2 tab PO DAILY PRN pain 06/10/23 02/08/24 History mg tablet simvastatin 40 mg tablet 40 mg PO DAILY 06/10/23 02/08/24 History ondansetron 4 mg disintegrating 4 mg PO Q6H PRN nausea and 07/29/23 02/08/24 Rx tablet vomiting #12 tabs ropinirole 0.5 mg tablet 0.5 mg PO .at bedtime 02/08/24 02/08/24 History venlafaxine 37.5 mg 37.5 mg PO DAILY 02/08/24 02/08/24 History capsule,extended release 24 hr Allergies Allergy/AdvReac Type Severity Reaction Status Date / Time Penicillins Allergy Severe Hives Verified 02/08/24 13:34 phenobarbital Allergy Severe Hives Verified 02/08/24 13:34 phenytoin [From Dilantin] Allergy Severe Hives Verified 02/08/24 13:34 luis Allergy Severe Redness of Uncoded 02/08/24 13:34 Skin Exam Constitutional Vital Signs, click to edit/add: Last Vital Signs Temp 97.6 F 02/08/24 15:56 Pulse 78 02/08/24 15:56 Resp 18 02/08/24 15:56 BP 166/84 H 02/08/24 15:56 Pulse Ox 94 L 02/08/24 15:56 O2 Del Method Room Air 02/08/24 15:56 Documenting provider has reviewed patient's vital signs: yes Common normals: no apparent distress Chest Common normals: inspection of chest normal and palpation of chest normal Respiratory Common normals: normal respiratory effort and no retractions Cardio Common normals: regular rate and regular rhythm GI Common normals: Normal to inspection, nondistended, normoactive bowel sounds present Neuro Common normals: moves all extremities and no focal motor deficits; CN's II-XII not intact bilaterally (May be a slight left facial droop) Results Labs Labs: Short CBC 02/08/24 Range/Units 13:33 WBC 13.4 H (4.0-11.0) 10^3/uL Hgb 15.8 (12.0-16.0) g/dL Hct 48.8 H (36.0-48.0) % Plt Count 585 H (150-450) 10^3/uL BMP 02/08/24 13:33 Sodium 137 Potassium 3.7 Chloride 100 Carbon Dioxide 28.0 BUN 19.0 H Creatinine 1.06 H Glucose 105 Calcium 9.5 Liver Function 02/08/24 Range/Units 13:33 Total Bilirubin 0.4 (0.2-1.0) mg/dL AST 31 (15-37) U/L ALT 25 (14-59) U/L Alkaline Phosphatase 80 (46-116) U/L Albumin 4.0 (3.4-5.0) g/dL Urine 02/08/24 Range/Units 13:41 Urine Color Yellow (YELLOW) Urine Clarity Clear (CLEAR) Urine pH 5.5 (5.0-9.0) Ur Specific [place] 1.025 (1.005-1.025) Urine Protein Trace (NEG/TRACE) mg/dL Urine Glucose (UA) Negative (NEGATIVE) mg/dL Assessment and Plan Assessment and Plan (1) Dysarthria: Plan Dysarthria likely secondary to small stroke in a patient with hypercholesterolemia. CT scan of head was negative, will check MRI scan in a.m., start patient on aspirin today. Check carotid ultrasound as well. Ec hocardiogram in AM. Consult to telestroke, check lipid profile Acute UTI with leukocytosis-start patient on IV antibiotics. Cultures pending. Thrombocythemia-doubt significance related to the above is not significantly elevated. Will track and trend. Low back pain-continue with home medications. Hypertension-continue with home medications and as needed hydralazine GERD-continue with home medications Admission statement: Patient with a protracted course of dysarthria. Admitted for closer workup to make sure she not having any significant changes on her telemetry as well as blood pressure fluctuations. Likely just observing overnight and likely discharge in a.m. and less telestroke as alternative plans
[2024-02-08] MEDS: ROPINIROLE HCL 0.25 MG TABLET 0.5 MG PO (20:34)
[2024-02-08] MEDS: METOPROLOL TARTRATE 25 MG TABLET PO (20:59)
[2024-02-08] MEDS: OXYBUTYNIN chloride 5 MG TABLET PO (20:59)
[2024-02-08] MEDS: LEVOFLOXACIN IN DEXTROSE 5 % 750 MG/150 ML IV.SOLN 100 MG IV (20:59)
[2024-02-08] MEDS: LEVETIRACETAM 500 MG TABLET PO (20:59)
[2024-02-08] MEDS: LATANOPROST 0.005% 2.5 ML BOTTLE 1 DROP OP (21:32)
[2024-02-08] MEDS: ATORVASTATIN CALCIUM 20 MG TABLET PO (21:32)
[2024-02-09] VITALS (11 sets, daily range): BP systolic 125–151; BP diastolic 65–68; PULSE 46–86; TEMP 34.5–36.8; O2SAT 92–96
--- NOTE | 2024-02-09 04:18 | PC.NURSE ---
Patient c/o headache 03/15. Neuro exam performed, no new deficits noticed other than slurred speech. Artifacts Conservator strength equal and strong. No arm or leg drifts present.
[2024-02-09 06:09] LABS: Basophils Percent Auto 0.3 % (0.2-2.0); Eosinophils Absolute Auto 0.3 10^3/uL (0.0-0.7); Eosinophils Percent Auto 2.7 % (0.9-7.0); Hematocrit 45.5 % (36.0-48.0); Hemoglobin 14.6 g/dL (12.0-16.0); Immature Granulocytes Abs Auto 0.04 10^3/uL (0.00-0.03); Immature Granulocytes Pct Auto 0.3 % (0.0-0.5); Lymphocytes Percent Auto 16.4 % (20.5-60.0); Mean Corpuscular HGB Conc 32.1 g/dL (29.9-35.2); Mean Corpuscular Hemoglobin 29.4 pg (26.7-34.0); Mean Corpuscular Volume 91.7 fL (81.0-99.0); Mean Platelet Volume 10.9 fL (9.5-13.5); Monocytes Absolute Auto 0.9 10^3/uL (0.3-0.8); Monocytes Percent Auto 7.7 % (1.7-12.0); Neutrophils Absolute Auto 8.9 10^3/uL (1.4-6.5); Neutrophils Percent Auto 72.6 % (43.0-75.0); Platelet Count 546 10^3/uL (150-450); Red Blood Count 4.96 10^6/uL (4.20-5.40); White Blood Count 12.2 10^3/uL (4.0-11.0)
[2024-02-09 06:24] LABS: Anion Gap 14.1; BUN Creatinine Ratio 23.7; Calcium 9.6 mg/dL (8.5-10.1); Carbon Dioxide 26.1 mmol/L (21.0-32.0); Chloride 103 mmol/L (98-107); Estimated GFR (African America >60 (>=60); Estimated GFR (Non-African Ame 59 (>=60); Glucose 116 mg/dL (74-106); Potassium 4.2 mmol/L (3.5-5.1); Sodium 139 mmol/L (136-145)
[2024-02-09 06:36] LABS: Chol HDL Ratio 5.9; Cholesterol 200 mg/dL (<=200); HDL Cholesterol 34 mg/dL (40-60); Triglycerides 126 mg/dL (<=150); VLDL CHOLESTEROL 25.2 mg/dL
[2024-02-09] MEDS: LEVETIRACETAM 500 MG TABLET PO (08:24)
[2024-02-09] MEDS: ASPIRIN 325 MG TABLET PO (08:24)
[2024-02-09] MEDS: OXYBUTYNIN chloride 5 MG TABLET PO (08:24)
[2024-02-09] MEDS: METOPROLOL TARTRATE 25 MG TABLET PO (08:24)
[2024-02-09] MEDS: GABAPENTIN 300 MG CAPSULE PO (08:24)
[2024-02-09] MEDS: FAMOTIDINE 20 MG TABLET PO (08:25)
[2024-02-09] MEDS: VENLAFAXINE HCL ER 37.5 MG CAPSULE PO (08:38)
--- NOTE | 2024-02-09 09:08 | CM.NOTE ---
Rounds made with Dr. Pineda. Potential discharge later today.
--- NOTE | 2024-02-09 09:50 | MR_ITS ---
The [address] [address] Patient Name: MATEO MANSFIELD MRN: [id number] date: 1950 Sex: F Assigned Patient Location: MS Current Patient Location: MS Accession/Order Number: [id number] Exam Date: 02/09/2024 09:50 Report Date: 02/09/2024 10:46 At the request of: TABATHA ONEIL Procedure: MR head/brain wo con MR head/brain wo con HISTORY: dysarthria COMPARISON: None. TECHNIQUE: Multi-planar, multi-sequence brain MRI was performed without IV contrast. FINDINGS: Brain volume: Normal. Sagittal midline structures: Normal. Ventricles: Normal. Acute ischemic changes: Multiple small foci of diffusion restriction and FLAIR hyperintensity involving the cortex and subcortical white matter throughout the left she will hemisphere. A few additional foci in the right parietal and occipital lobes. Hemorrhage: None. Masses/edema: None. [place]me[place]-white: Negative. White matter: Mild chronic microangiopathy involving the subcortical and deep white matter Vessels: Normal. Extra-axial: None. Calvarium/scalp: Negative. Skull base: Negative. Visualized sinuses/orbits: Negative. Visualized upper neck: Negative. MR/MR head/brain wo con IMPRESSION: 1. Multifocal acute small thromboembolic infarcts throughout the left cerebral hemisphere and to a lesser extent extent posterior right hemisphere. 2. No intracranial hemorrhage Electronically authenticated by: CHARLENE FREY Date: 02/09/2024 10:46
--- NOTE | 2024-02-09 10:19 | P.DS_ITS ---
DS: Providers Provider Date of admission: 02/08/24 15:35 Primary care physician: Olga Holloway MD Consults: 02/08/24 15:20 Consult to Telestroke Routine Reason for consultation: Dysarthria Has provider been notified: Yes 02/08/24 17:16 Occupational Therapy Eval and Treat Routine Reason for consultation: Only if needed for Rehab Has provider been notified: No Physical Therapy Eval and Treat Routine Reason for consultation: Eval and Treat Has provider been notified: No 02/08/24 17:24 Consult to Telestroke Routine Reason for consultation: seen in er Has provider been notified: No DS: Diagnosis Discharge Diagnosis (1) Dysarthria: Assessment and plan: Dysarthria likely secondary to small stroke in a patient with hypercholesterolemia. CT scan of head was negative, will check MRI scan in a.m., start patient on aspirin today. Check carotid ultrasound as well. Echocardiogram in AM. Consult to telestroke, check lipid profile Acute UTI with leukocytosis-start patient on IV antibiotics. Cultures pending. Thrombocythemia-doubt significance related to the above is not significantly elevated. Will track and trend. Low back pain-continue with home medications. Hypertension-continue with home medications and as needed hydralazine GERD-continue with home medications Admission statement: Patient with a protracted course of dysarthria. Admitted for closer workup to make sure she not having any significant changes on her telemetry as well as blood pressure fluctuations. Likely just observing overnight and likely discharge in a.m. and less telestroke as alternative plans ? DS: Summary Hospital Course Hospital Course: Patient presented to the emergency room with about a 4-day history of dysarthria. She can swallow she has been eating fine she has no trouble with her hospital attendant or walking. Just having trouble more with word finding. Patient in the emergency room his workup was unremarkable. Case was discussed with telestroke and they felt patient was stable enough to stay here. MRI scan showed multiple small possibly embolic strokes. Telestroke service recommended aspirin. Sent patient home with a full-strength aspirin. Echocardiogram was pending at the time of discharge can be followed up with PCP. As well as following up with neurology. Medications see list. Patient also found to have acute UTI and will be sent home on antibiotics. Cultures pending at the time of discharge. Time Spent with Patient Time attestation: Total time spent providing and/or coordinating discharge services: Quality: Stroke Onset of Symptoms Date: 02/03/24 Exam Constitutional Vital Signs, click to edit/add: Last Vital Signs Temp 98.3 F 02/09/24 08:00 Pulse 58 L 02/09/24 08:00 Resp 14 02/09/24 08:00 BP 138/65 02/09/24 08:38 Pulse Ox 94 L 02/09/24 08:00 O2 Del Method Room Air 02/09/24 08:00 Documenting provider has reviewed patient's vital signs: yes Common normals: no apparent distress Chest Common normals: inspection of chest normal and palpation of chest normal Respiratory Common normals: normal respiratory effort and no retractions Cardio Common normals: regular rate and regular rhythm GI Common normals: Normal to inspection, nondistended, normoactive bowel sounds present Neuro Common normals: moves all extremities and no focal motor deficits; CN's II-XII not intact bilaterally (May be a slight left facial droop) DS: Data Data Completed and Pending Labs on day of discharge: Labs from last 24 hours 02/09/24 02/08/24 02/08/24 05:22 13:41 13:37 WBC 12.2 H RBC 4.96 Hgb 14.6 Hct 45.5 MCV 91.7 MCH 29.4 MCHC 32.1 RDW 14.0 Plt Count 546 H MPV 10.9 Neut % (Auto) 72.6 Lymph % (Auto) 16.4 L [place] % (Auto) 7.7 Eos % (Auto) 2.7 Baso % (Auto) 0.3 Neut # (Auto) 8.9 H Lymph # (Auto) 2.0 [place] # (Auto) 0.9 H Eos # (Auto) 0.3 Baso # (Auto) 0.0 Abs Immat Gran (auto) 0.04 H Imm/Tot Granulo (auto) 0.3 PT INR Sodium 139 Potassium 4.2 Chloride 103 Carbon Dioxide 26.1 Anion Gap 14.1 BUN 22.0 H Creatinine 0.93 Est GFR ( Amer) >60 Est GFR (Non-Af Amer) 59 L BUN/Creatinine Ratio 23.7 Glucose 116 H Calcium 9.6 Total Bilirubin AST ALT Alkaline Phosphatase Total Protein Albumin Globulin Albumin/Globulin Ratio Triglycerides 126 Cholesterol 200 LDL Cholesterol, Calc 141.0 VLDL Cholesterol 25.2 HDL Cholesterol 34 L Cholesterol/HDL Ratio 5.9 Urine Color Yellow Urine Clarity Clear Urine pH 5.5 Ur Specific [place] 1.025 Urine Protein Trace Urine Glucose (UA) Negative Urine Ketones Negative Urine Occult Blood Negative Urine Nitrite Negative Urine Bilirubin Negative Urine Urobilinogen 0.2 Ur Leukocyte Esterase Small A Urine RBC 0-2 Urine WBC 10-20 A Ur Squamous Epith Cells Moderate A Urine Crystals None seen Urine Bacteria Moderate A Urine Casts None seen Urine Mucus Trace A Ur Culture Indicated? Yes POC Glucose 104 02/08/24 13:33 WBC 13.4 H RBC 5.24 Hgb 15.8 Hct 48.8 H MCV 93.1 MCH 30.2 MCHC 32.4 RDW 13.9 Plt Count 585 H MPV 10.5 Neut % (Auto) 69.1 Lymph % (Auto) 20.3 L [place] % (Auto) 8.1 Eos % (Auto) 1.9 Baso % (Auto) 0.4 Neut # (Auto) 9.3 H Lymph # (Auto) 2.7 [place] # (Auto) 1.1 H Eos # (Auto) 0.3 Baso # (Auto) 0.1 Abs Immat Gran (auto) 0.03 Imm/Tot Granulo (auto) 0.2 PT 11.1 INR 1.05 Sodium 137 Potassium 3.7 Chloride 100 Carbon Dioxide 28.0 Anion Gap 12.7 BUN 19.0 H Creatinine 1.06 H Est GFR ( Amer) >60 Est GFR (Non-Af Amer) 51 L BUN/Creatinine Ratio 17.9 Glucose 105 Calcium 9.5 Total Bilirubin 0.4 AST 31 ALT 25 Alkaline Phosphatase 80 Total Protein 7.7 Albumin 4.0 Globulin 3.7 Albumin/Globulin Ratio 1.1 Triglycerides Cholesterol LDL Cholesterol, Calc VLDL Cholesterol HDL Cholesterol Cholesterol/HDL Ratio Urine Color Urine Clarity Urine pH Ur Specific [place] Urine Protein Urine Glucose (UA) Urine Ketones Urine Occult Blood Urine Nitrite Urine Bilirubin Urine Urobilinogen Ur Leukocyte Esterase Urine RBC Urine WBC Ur Squamous Epith Cells Urine Crystals Urine Bacteria Urine Casts Urine Mucus Ur Culture Indicated? POC Glucose Preliminary micro results at discharge 02/08/24 13:41 Urine Culture - Preliminary Urine,Clean Catch Discharge Plan Discharge Disposition: Home, Self-Care Discharge Medications: New atorvastatin 20 mg Tablet 20 mg PO QHS Qty: 30 11RF aspirin 325 mg Tablet 325 mg PO QD Qty: 30 11RF levofloxacin 500 mg tablet 500 mg PO DAILY 7 Days Qty: 7 0RF Continued ropinirole 0.5 mg tablet 0.5 mg PO .at bedtime venlafaxine 37.5 mg capsule,extended release 24hr 37.5 mg PO DAILY alprazolam 1 mg tablet 1 mg PO BID PRN (Reason: anxiety) gabapentin 300 mg capsule 300 mg PO DAILY latanoprost 0.005 % drops 1 drp OPHTHALMIC (EYE) .hs levetiracetam 500 mg tablet 500 mg PO BID metoprolol tartrate 25 mg tablet 25 mg PO BID oxycodone-acetaminophen 7.5-325 mg tablet 2 tab PO DAILY PRN (Reason: pain) simvastatin 40 mg tablet 40 mg PO DAILY oxybutynin chloride 5 mg tablet 5 mg PO BID famotidine [Pepcid] 20 mg tablet 20 mg PO DAILY Qty: 10 0RF diphenhydramine HCl [Benadryl] 25 mg capsule 25 mg PO Q8H PRN (Reason: itching) Qty: 20 0RF ondansetron 4 mg tablet,disintegrating 4 mg PO Q6H PRN (Reason: nausea and vomiting) Qty: 12 0RF Activity: ambulate only with your walker Diet: advance to your usual diet Print Language: Malaysian Patient Instructions: How to Stop Smoking (DC), Stroke (DC) [place] [employer] Gatherer/Crimper Operator Instructions: [facility], phone number is [phone]. They will contact within 48 hours of discharge. Forms: Portal Instructions Follow Up Appointments: February 12 @ 11:[address] Holloway [phone] [facility] will contact you to schedule an appointment. If you do not hear from them in 1 week, please call them to schedule. [phone] Discharge Date/Time: 02/09/24 14:56
--- NOTE | 2024-02-09 12:05 | SWNOTE1 ---
SW met with pt to discuss dc needs. Pt was able to speak with SW, but took some time to put sentences together. 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 She voiced he can walk with a cane at home. She does not use any DME at home. Pt does still drive as well. Pt voiced she just moved on Monday, her and used to live at [employer]. SW and pt spoke about home health coming in for a short time, pt is open to this. Pt's sister came in during conversation. She feels home health is good idea as well. Pt does not have a preference on [facility]. SW to set up and let pt know who. Referral sent to [facility]. Referral included face sheet, ED note, H&P, provider notes, case management report, and PT/OT notes.
--- NOTE | 2024-02-09 12:17 | SWNOTE1 ---
Medicare Outpatient Observation Notice reviewed and discussed with patient. Pt. verbalized understanding and signed the form. Original given to patient and copy placed in patient?s chart.
--- NOTE | 2024-02-09 13:14 | SWNOTE1 ---
[facility] is able to accept.
--- NOTE | 2024-02-09 14:06 | SWNOTE1 ---
SW let pt and sister know that she will discharge with [facility].
--- NOTE | 2024-02-13 15:30 | CM.DCFOLLOWU ---
Person spoke with: patient How are you feeling? well How is your pain? no pain Did you understand your discharge instructions? yes Do you have any questions about your discharge instructions? no Were you given any prescriptions at discharge? yes Were you able to get your prescriptions filled? yes Do you understand how to take your medications as ordered? yes Do you have any questions about your follow up appointment and do you plan to keep your follow up appointment? no questions, follow up today with PCP Is there anything else that you would like to discuss? no, advised to call [facility] if they do not reach out by tomorrow Questions/Comments/Concerns/Other: N/A
== END 2024-02-09 14:56 | disposition home health service (06) ==
LOC: ER 14:49 → MS 15:55
PROVIDERS: Admitting Provider Family Medicine; Emergency Provider Emergency Medicine Emergency Medical Services; PCP Family Medicine; Visit Provider Family Medicine
DX: I63.89 Other cerebral infarction (principal); R47.1 Dysarthria and anarthria; E78.00 Pure hypercholesterolemia, unspecified; N39.0 Urinary tract infection, site not specified; D75.839 Thrombocytosis, unspecified; M54.50 Low back pain, unspecified; I10 Essential (primary) hypertension; K21.9 Gastro-esophageal reflux disease without esophagitis; M19.90 Unspecified osteoarthritis, unspecified site; M81.0 Age-related osteoporosis without current pathological fracture; F17.210 Nicotine dependence, cigarettes, uncomplicated; B96.20 Unspecified Escherichia coli [E. coli] as the cause of diseases classified elsewhere; B95.1 Streptococcus, group B, as the cause of diseases classified elsewhere; Z90.710 Acquired absence of both cervix and uterus; Z98.1 Arthrodesis status; Z79.899 Other long term (current) drug therapy; Z96.642 Presence of left artificial hip joint
CPT/HCPCS: 36415; 70450; 70551; 71045; 80048; 80053; 80061; 81001; 85025; 85610; 87086; 87150; 87186; 93005; 93306; 93880; 94761; 96365; 96366; 97110; 97165; 99285; G0378; Q3014

== ENCOUNTER 2024-03-19 15:04 | Outpatient (OUT) | payer MEDICARE, MEDICAID, SELFPAY ==
--- NOTE | 2024-03-19 | ECG_ITS ---
[facility] Test Date: 2024-03-19 Pat Name: MATEO MANSFIELD Department: Room: - Gender: Female Sustainability Manager: : 1950 Requested By: ROBERT SCHWARTZ Order Number: [id number] Reading MD: CHRISTOPH SCHMIDT Measurements Intervals [place] Rate: 42 P: 71 MT: 179 QRS: 72 QRSD: 84 T: 70 QT: 455 QTc: 384 Interpretive Statements SINUS BRADYCARDIA Compared to ECG 02/08/2024 13:35:23 Sinus rhythm no longer present Sinus arrhythmia no longer present Electronically Signed On 03-19-2024 22:48:03 EDT by CHRISTOPH SCHMIDT
[2024-03-19 15:31] LABS: Basophils Absolute Auto 0.1 10^3/uL (0.0-0.1); Basophils Percent Auto 0.5 % (0.2-2.0); Eosinophils Absolute Auto 0.4 10^3/uL (0.0-0.7); Eosinophils Percent Auto 3.4 % (0.9-7.0); Hematocrit 41.3 % (36.0-48.0); Hemoglobin 13.1 g/dL (12.0-16.0); Immature Granulocytes Abs Auto 0.03 10^3/uL (0.00-0.03); Immature Granulocytes Pct Auto 0.3 % (0.0-0.5); Lymphocytes Absolute Auto 3.4 10^3/uL (1.2-3.8); Lymphocytes Percent Auto 30.7 % (20.5-60.0); Mean Corpuscular HGB Conc 31.7 g/dL (29.9-35.2); Mean Corpuscular Hemoglobin 29.3 pg (26.7-34.0); Mean Corpuscular Volume 92.4 fL (81.0-99.0); Mean Platelet Volume 10.9 fL (9.5-13.5); Monocytes Absolute Auto 0.9 10^3/uL (0.3-0.8); Neutrophils Absolute Auto 6.3 10^3/uL (1.4-6.5); Neutrophils Percent Auto 57.1 % (43.0-75.0); Platelet Count 766 10^3/uL (150-450); Red Blood Count 4.47 10^6/uL (4.20-5.40); Red Cell Distribution Width 14.7 % (11.0-15.0); White Blood Count 11.1 10^3/uL (4.0-11.0)
[2024-03-19 16:07] LABS: Anion Gap 8.6; BUN Creatinine Ratio 17.2; Calcium 9.7 mg/dL (8.5-10.1); Carbon Dioxide 33.3 mmol/L (21.0-32.0); Chloride 103 mmol/L (98-107); Estimated GFR (African America 55 (>=60); Estimated GFR (Non-African Ame 46 (>=60); Glucose 96 mg/dL (74-106); Potassium 4.9 mmol/L (3.5-5.1); Sodium 140 mmol/L (136-145); TSH W/ REFLEX FT4 2.002 uIU/mL (0.358-3.740)
== END 2024-03-19 15:05 | disposition home or self-care (01) ==
LOC: LAB 15:05
PROVIDERS: PCP Family Medicine; Visit Provider Family Medicine
DX: R53.83 Other fatigue (principal); R00.1 Bradycardia, unspecified
CPT/HCPCS: 36415; 80048; 84443; 85025; 93005

== ENCOUNTER 2024-04-23 07:14 | Outpatient (RCR) | payer MEDICARE, MEDICAID, SELFPAY ==
[2024-04-09 15:01] LABS: C Reactive Protein <0.50 mg/dL (<=0.50)
[2024-04-09 15:02] LABS: Basophils Absolute Auto 0.1 10^3/uL (0.0-0.1); Basophils Percent Auto 0.5 % (0.2-2.0); Eosinophils Absolute Auto 0.7 10^3/uL (0.0-0.7); Eosinophils Percent Auto 6.2 % (0.9-7.0); Erythrocyte Sedimentation Rate 16 mm/hr (<=30); Hemoglobin 13.1 g/dL (12.0-16.0); Immature Granulocytes Abs Auto 0.02 10^3/uL (0.00-0.03); Immature Granulocytes Pct Auto 0.2 % (0.0-0.5); Lymphocytes Percent Auto 28.1 % (20.5-60.0); Mean Corpuscular Hemoglobin 29.6 pg (26.7-34.0); Mean Corpuscular Volume 92.8 fL (81.0-99.0); Mean Platelet Volume 11.3 fL (9.5-13.5); Monocytes Absolute Auto 0.9 10^3/uL (0.3-0.8); Platelet Count 798 10^3/uL (150-450); Red Blood Count 4.42 10^6/uL (4.20-5.40); Red Cell Distribution Width 14.6 % (11.0-15.0); White Blood Count 10.6 10^3/uL (4.0-11.0)
[2024-04-09 15:48] LABS: Percent Iron Saturation 25.3 %
[2024-04-12 16:10] LABS: Beta-2 Glycoprotein I Ab, IgA <9 (0-25); Beta-2 Glycoprotein I Ab, IgG <9 (0-20); Beta-2 Glycoprotein I Ab, IgM <9 (0-32)
== END 2024-05-05 23:59 | disposition home or self-care (01) ==
LOC: INF 07:14
PROVIDERS: PCP Family Medicine; Visit Provider Internal Medicine Hematology & Oncology
DX: D47.3 Essential (hemorrhagic) thrombocythemia (principal); D72.829 Elevated white blood cell count, unspecified; Z90.710 Acquired absence of both cervix and uterus; F17.210 Nicotine dependence, cigarettes, uncomplicated; Z86.73 Personal history of transient ischemic attack (TIA), and cerebral infarction without residual deficits
CPT/HCPCS: 36415; 82728; 83540; 83550; 85025; 85613; 85652; 85670; 85705; 85732; 86140; 86146; 86147; 86148; G0463

== ENCOUNTER 2024-05-21 07:43 | Outpatient (RCR) | payer MEDICARE, MEDICAID, SELFPAY ==
[2024-05-21 13:52] LABS: Basophils Absolute Auto 0.1 10^3/uL (0.0-0.1); Basophils Percent Auto 0.6 % (0.2-2.0); Eosinophils Absolute Auto 0.4 10^3/uL (0.0-0.7); Eosinophils Percent Auto 5.6 % (0.9-7.0); Hematocrit 42.2 % (36.0-48.0); Hemoglobin 13.5 g/dL (12.0-16.0); Immature Granulocytes Abs Auto 0.02 10^3/uL (0.00-0.03); Immature Granulocytes Pct Auto 0.3 % (0.0-0.5); Lymphocytes Absolute Auto 2.5 10^3/uL (1.2-3.8); Lymphocytes Percent Auto 31.1 % (20.5-60.0); Mean Corpuscular Hemoglobin 30.4 pg (26.7-34.0); Mean Platelet Volume 10.5 fL (9.5-13.5); Monocytes Absolute Auto 0.7 10^3/uL (0.3-0.8); Monocytes Percent Auto 8.4 % (1.7-12.0); Neutrophils Absolute Auto 4.3 10^3/uL (1.4-6.5); Platelet Count 680 10^3/uL (150-450); Red Blood Count 4.44 10^6/uL (4.20-5.40); Red Cell Distribution Width 15.6 % (11.0-15.0); White Blood Count 7.9 10^3/uL (4.0-11.0)
[2024-05-21 13:56] LABS: Erythrocyte Sedimentation Rate 14 mm/hr (<=30)
[2024-05-21 16:05] LABS: Anion Gap 10.6; BUN Creatinine Ratio 20.5; C Reactive Protein <0.50 mg/dL (<=0.50); Carbon Dioxide 29.2 mmol/L (21.0-32.0); Chloride 105 mmol/L (98-107); Estimated GFR (African America >60 (>=60); Estimated GFR (Non-African Ame >60 (>=60); Glucose 87 mg/dL (74-106); Potassium 4.8 mmol/L (3.5-5.1); Sodium 140 mmol/L (136-145)
[2024-05-21 16:43] LABS: Percent Iron Saturation 23.1 %
== END 2024-06-05 23:59 | disposition home or self-care (01) ==
LOC: HEMC 07:43
PROVIDERS: PCP Family Medicine; Visit Provider Internal Medicine Hematology & Oncology
DX: D47.3 Essential (hemorrhagic) thrombocythemia (principal); D72.829 Elevated white blood cell count, unspecified; F17.210 Nicotine dependence, cigarettes, uncomplicated; Z86.73 Personal history of transient ischemic attack (TIA), and cerebral infarction without residual deficits; Z96.649 Presence of unspecified artificial hip joint
CPT/HCPCS: 36415; 80048; 82728; 83540; 83550; 85025; 85652; 86140; G0463

== ENCOUNTER 2024-05-31 07:54 | Outpatient (OUT) | payer MEDICARE, MEDICAID, SELFPAY ==
--- NOTE | 2024-05-31 | PCN_ITS ---
CARDIAC STRESS TEST Requesting Physician: Jaron Johnson M.D. Procedure Date: 05/31/2024 PERFORMING PROVIDER: Britney Norman M.D. STRESS TEST PROTOCOL: Lexiscan myocardial perfusion imaging. Resting heart rate: 57 Max heart rate: 92 Resting blood pressure: 150/86 Maximum blood pressure: 150/86 CONCLUSION: 1. Resting EKG demonstrated sinus bradycardia. 2. There were no definite EKG changes meeting the criteria for ischemia post Lexiscan infusion. 3. Please refer to separately interpreted and reported nuclear myocardial perfusion imaging. MTDD
--- OUTSIDE RECORDS SUMMARY | 2024-05-31 07:57 | XMS_ITS | CCD ---
Author Organization [facility] Care Team Providers Care Spiral Gear Generator Name Role Phone Olga Schwartz Unavailable Fernando Silverio Unavailable EFREN, DR OLGA Rodriguez Admitting Unavailable SCHWARTZ, DR OLGA Rodriguez Attending Unavailable SCHWARTZ, DR OLGA Rodriguez Primary Care Unavailable WEST, DR CHAITANYA King Consulting Unavailable SCHWARTZ, DR OLGA Rodriguez Consulting Unavailable CU[place] New Consulting Unavailable SCHWARTZ, DR OLGA Rodriguez Admitting Unavailable SCHWARTZ, DR OLGA Rodriguez Attending Unavailable SCHWARTZ, DR OLGA Rodriguez Primary Care Unavailable ZIEBER, DR RAIN Bloom Consulting Unavailable SCHWARTZ, DR OLGA Rodriguez Consulting Unavailable SCHWARTZ, DR OLGA Rodriguez Admitting Unavailable SCHWARTZ, DR OLGA Rodriguez Attending Unavailable SCHWARTZ, DR OLGA Rodriguez Primary Care Unavailable ZIEBER, DR RAIN Bloom Consulting Unavailable SCHWARTZ, DR OLGA Rodriguez Consulting [facility] Unavailable SCHWARTZ, DR OLGA Rodriguez Admitting Unavailable SCHWARTZ, DR OLGA Rodriguez Attending Unavailable SCHWARTZ, DR OLGA Rodriguez Primary Care Unavailable WEST, DR CHAITANYA King Consulting Unavailable SCHWARTZ, DR OLGA Rodriguez Consulting Unavailable ELOINA FRANKEL Referring Unavailable SHANNAN, SAIRA Valente Primary Care Unavailable SHANNAN, SAIRA W Primary Care Unavailable SHANNAN, SAIRA W Referring Unavailable SHANNAN, SAIRA Valente Primary Care Unavailable SchwartzOlga Attending Unavailable SchwartzOlga Primary Care Unavailable SchwartzOlga Admitting Unavailable Schwartz, Olga Rodriguez Admitting Unavailable SchwartzOlga Attending Unavailable Schwartz, Olga Rodriguez Primary Care Unavailable Neto Hooper Attending UnavailDO Dawit Fountain Referring Unava ilJARON Gibson Attending Unavailable DAWIT HOWARD Attending Unavailable NESTOR IVERSON Attending Unavailable Allergies Allergy Classification Reported Allergen(s) Allergy Type Date of Onset Reaction(s) Facility (15 sources) nickel; Translations: [NICKEL] Drug Allergy 02-13-20 24 Unknown, [facility] (13 sources) Penicillin Drug Allergy Unknown [facility] [place] Other (17 sources) PHENobarbital; Translations: [PHENOBARBITAL] Drug Allergy 04-07-20 21 Unknown, [facility] (15 sources) Phenytoin; Translations: [PHENYTOIN] Drug Allergy 04-07-20 21 Unknown, [facility] (15 sources) Zinc; Translations: [ZINC] Drug Allergy 02-13-20 Unknown, [facility] (1 source) benzoin resin Drug Allergy 09-25-20 14 [facility] (1 source) Leucine Drug Allergy [facility] (5 sources) Penicillins; Translations: [PENICILLINS] Drug allergy (disorder) 09-25-20 14 [facility] (1 source) Phenytoin Drug Allergy 09-25-20 14 [facility] (8 sources) Allergies Reconciled Propensity to adverse reactions Unknown [facility] [place] Other (8 sources) Penicillin G Benzathine & Proc Drug allergy Unknown [facility] [place] Other (8 sources) PHENobarbital *HYPNOTICS/SEDATI VES/SLEEP DISORDER Propensity to adverse reactions Unknown [facility] [place] Other (8 sources) patient allergy list reviewed by nurse or physicia Propensity to adverse reactions 03-29-20 Comment:Done [facility] [place] Other (1 source) Penicillin G Benzathine Allergy to substance 02-13-20 24 [facility] (1 source) PHENobarbital *HYPNOTICS/SEDAT Allergy to substance 02-13-20 [facility] (2 sources) Phenytoin; Translations: [PHENYTOIN SODIUM EXTENDED] Drug Allergy 04-07-20 [facility] Medications Current Medications Medication Drug Class(es) Dates Sig (Normalized) Sig (Original) acetaminophen 325 mg / oxyCODONE hydrochloride 7.5 mg oral tablet (16 sources) Opioid Agonist Start: 12-22-2023 End: 01-22-2024 take 1 tablet by mouth three times daily Oxycodone-Acetami nophen Active 1 TAB PO Three times daily January 22, 2024 Start: 10-24-2023 take 1 tablet by pastor th three times daily as needed Percocet 7.5-325 MG 1 tablet Orally three times daily, as needed for 30 days Oct, Active Start: 09-25-2023 take 1 tablet by pastor th three times daily as needed Percocet 7.5-325 MG 1 tablet Orally three times daily, as needed for 30 days Sep, Active Start: 08-23-2023 take 1 tablet by pastor th three times daily as needed Percocet 7.5-325 MG 1 tablet Orally three times daily, as needed for 30 days Aug, Active Start: 07-24-2023 take 1 tablet by pastor th three times daily as needed Percocet 7.5-325 MG 1 tablet Orally three times daily, as needed for 30 days Jul, Active Start: 06-24-2023 take 1 tablet by pastor th three times daily as needed Percocet 7.5-325 MG 1 tablet Orally three times daily, as needed for 30 days Jun, Active Start: 05-26-2023 take 1 tablet by pastor th three times daily as needed Percocet 7.5-325 MG 1 tablet Orally three times daily, as needed for 30 days May, Active Start: 04-28-2023 Start: 02-24-2023 take 1 tablet by pastor th three times daily as needed Percocet 7.5-325 MG 1 tablet Orally three times daily, as needed for 30 days Feb, Active Start: 01-24-2023 take 1 tablet by pastor th three times daily as needed Percocet 7.5-325 MG 1 tablet Orally three times daily, as needed for 30 days Jan, Active ALPRAZolam 1 mg oral tablet (16 sources) Benzodiazepine Start: 12-22-2023 End: 01-22-2024 take 1 mg by mouth twice daily Alprazolam Active 1 MG PO Twice daily January 22, 2024 3:55pm Start: 10-24-2023 ALPRAZolam 1 M G TAKE 1 TABLET BY MOUTH TWICE DAILY NEEDED FOR 30 DAYS for 30 Oct, Active Start: 09-25-2023 ALPRAZolam 1 M G TAKE 1 TABLET BY MOUTH TWICE DAILY NEEDED FOR 30 DAYS for 30 20 Sep, 2023 Active Start: 08-23-2023 ALPRAZolam 1 M G TAKE 1 TABLET BY MOUTH TWICE DAILY NEEDED FOR 30 DAYS for 30 Aug, Active Start: 07-24-2023 ALPRAZolam 1 M G TAKE 1 TABLET BY MOUTH TWICE DAILY NEEDED FOR 30 DAYS for 30 Jul, Active Start: 06-24-2023 ALPRAZolam 1 M G TAKE 1 TABLET BY MOUTH TWICE DAILY NEEDED FOR 30 DAYS for 30 Jun, Active Start: 05-26-2023 ALPRAZolam 1 M G TAKE 1 TABLET BY MOUTH TWICE DAILY NEEDED FOR 30 DAYS for 30 May, Active Start: 04-28-2023 Start: 01-24-2023 ALPRAZolam 1 M G TAKE 1 TABLET BY MOUTH TWICE DAILY NEEDED FOR 30 DAYS for 30 Jan, Active Ciprofloxacin (5 sources) Quinolone Antimicrobial Ciprofloxacin Active gabapentin 300 mg oral capsule (14 sources) Anti-epileptic Agent Start: 02-09-20 take 300 mg by mouth three times daily Gabapentin Active 300 MG PO Three times daily February 09, 2024 12:00am Start: 11-08-2022 [facility] Gabapentin 300 MG 1 capsule Orally 3 times per day for 30 day(s) Nov, Active Hyoscyamine (5 sources) Hyoscyamine Acti ve levETIRAcetam 500 mg oral tablet (15 sources) Start: 01-15-2024 take 1 tablet by mouth twice daily Levetiracetam Active 0 .ROUTE .COMPLEX 180 January 15, 2024 1:09pm TAKE 1 TABLET BY MOUTH TWICE A DAY Start: 01-15-2024 End: 01-15-2024 take 500 mg by mouth twice daily Levetiracetam Discontinued 500 MG PO Twice daily January 15, 2024 12:00am January 15, 2024 1:09pm take 1 tablet by pastor twice daily levETIRAcetam 500 MG TAKE 1 TABLET BY MOUTH TWICE A DAY for 90 Active metoprolol tartrate 25 mg oral tablet (14 sources) beta-Adrenergic Tereso Start: 02-09-2024 take 25 mg by mouth twice daily Metoprolol Tartrate Active 25 MG PO Twice daily February 09, 2024 12:00am take 1 tablet by mouth twice angie ly Metoprolol Tartrate 25 MG TAKE 1 TABLET BY MOUTH TWICE A DAY for 90 Active Ondansetron (5 sources) Serotonin-3 Receptor Antagonist Ondansetron Active oxybutynin chloride 5 mg oral tablet (14 sources) Cholinergic Muscarinic Antagonist Start: take 5 mg by mouth every eight hours Oxybutynin Chloride Active 5 MG PO Every 8 hours 270 December 20, 2023 1:00am take 1 tablet by pastor th three times daily as needed oxyBUTYnin Chloride 5 MG TAKE 1 TABLET B Y MOUTH THREE TIMES A DAY NEEDED for 90 Active simvastatin 40 mg oral tablet (19 sources) HMG-CoA Reductase Inhibitor Start: 01-31-2024 take 1 tablet by mouth once daily in the evening Simvastatin Active 0 .ROUTE .COMPLEX 90 January 31, 2024 8:43am TAKE 1 TABLET BY MOUTH EVERY DAY IN THE EVENING FOR 90 DAYS Start: 01-30-2024 End: 01-31-2024 take 40 mg by mouth once daily Simvastatin Discontinue d 40 MG PO Daily January 30, 2024 12:00am January 31, 2024 8:43am Start: 02-13-2023 take 1 tablet by pastor th every twenty-four hours Simvastatin 40 MG 1 tablet in the evening Orally Once a day for 90 days Feb, Active Completed/Discontinued Medications Medication Drug Class(es) Dates Sig (Normalized) Sig (Original) busPIRone hydrochloride 10 mg oral tablet (14 sources) Start: 02-09-2024 End: 02-13-2024 take 10 mg by mouth twice daily Buspirone Discontinued 10 MG PO Twice daily February 09, 2024 12:00am February 13, 2024 11:33am take 1 tablet by mouth twice angie ly busPIRone HCl 10 MG TAKE 1 TABLET BY MOUTH TWICE A DAY for 90 Active rOPINIRole 0.5 mg oral tablet (7 sources) Nonergot Dopamine Agonist Start: 01-19-2024 End: 02-13-2024 take 1 tablet by mouth once daily at bedtime Ropinirole Discontinued 0 .ROUTE .COMPLEX January 19, 2024 8:33am February 13, 2024 11:34am TAKE 1 TABLET BY MOUTH 1 TO 3 HOURS BEFORE BEDTIME DAILY 90 Start: 01-19-2024 End: 01-19-2024 take 1 tablet by mouth once daily at bedtime Ropinirole Discontinued 0.5 MG PO January 19, 2024 12:00am January 19, 2024 8:33am TAKE 1 TABLET BY MOUTH 1 TO 3 HOURS BEFORE BEDTIME DAILY take 1 tablet by pastor th once daily at bedtime rOPINIRole HCl 0.5 MG TAKE 1 TABLET BY MOUTH 1 TO 3 HOURS BEFORE BEDTIME DAILY for 90 Active 24 hr venlafaxine 37.5 mg extended release oral capsule (10 sources) Serotonin and Norepinephrine Reuptake Inhibitor Start: 02-06-2024 End: 02-13-2024 take 1 capsule by mouth once daily Venlafaxine Discontinued 0 .ROUTE .COMPLEX 90 February 06, 2024 8:55am February 13, 2024 11:35am TAKE 1 CAPSULE BY MOUTH EVERY DAY Start: 02-02-2024 End: 02-06-2024 take 37.5 mg by mouth once daily Venlafaxine Discontinued 37.5 MG PO Daily February 02, 2024 12:00am February 06, 2024 8:55am take 1 capsule by mo ut once daily Venlafaxine HCl ER 37.5 MG TAKE 1 CAPSULE BY MOUTH EVERY DAY for 90 Active Problems Active Problems Problem Classification Problem Date Documented Da te Episodic/Chronic Abdominal pain (20 sources) Abdominal pain; Translations: [Unspecified abdominal pain] Onset: 10-23-2018 Episodic Acute cerebrovascular disease (5 sources) Cerebrovascular accident; Translations: [Cerebral infarction, unspecified] Onset: 02-12-2024 02-13-2024 Chronic Acute cerebrovascular disease (1 source) Acute cerebrovascular disease Onset: 02-08-2024 Anxiety disorders (20 sources) Mixed anxiety and depressive disorder; Translations: [Anxiety disorder, unspecified] Chronic Cardiac dysrhythmias (3 sources) Bradycardia, unspecified; Translations: [Bradycardia, unspecified] Onset: 03-19-2024 Episodic Chronic obstructive pulmonary disease and bronchiectasis (20 sources) Bronchitis; Translations: [Bronchitis, not specified as acute or chronic] Episodic Disorders of lipid metabolism (20 sources) Hyperlipidemia; Translations: [Other hyperlipidemia] Onset: 02-17-2023 Chronic Diverticulosis and diverticulitis (8 sources) Diverticulitis of colon; Translations: [Diverticulitis of intestine, part unspecified, without perforation or abscess without bleeding] Onset: 09-03-2018 Chronic Epilepsy; convulsions (9 sources) Epilepsy; Translations: [Epilepsy, unspecified, not intractable, without status epilepticus] Onset: 09-03-2018 02-09-2024 Chronic Epilepsy; convulsions (2 sources) Seizure; Translations: [Unspecified convulsions] 02-13-2024 Episodic Essential hypertension (20 sources) Essential hypertension; Translations: [Essential (primary) hypertension] Onset: 02-09-2023 Chronic Gastrointestinal hemorrhage (1 source) Melena Episodic Headache; including migraine (20 sources) Migraine; Translations: [Migraine, unspecified, not intractable, without status migrainosus] 02-09-2024 Chronic Headache; including migraine (8 sources) Headache; Translations: [Headache, unspecified] Episodic Malaise and fatigue (1 source) Other fatigue; Translations: [Other fatigue] Onset: 03-19-2024 Episodic Mood disorders (20 sources) Major depression, single episode; Translations: [Major depressive disorder, single episode, unspecified] 02-09-2024 Chronic Nutritional deficiencies (20 sources) Vitamin B12 deficiency (non anemic); Translations: [Deficiency of other specified B group vitamins] Onset: 02-17-2023 Episodic Osteoarthritis (18 sources) Osteoarthritis of left hip joint; Translations: [Unilateral primary osteoarthritis, left hip] Onset: 09-03-2018 Chronic Osteoporosis (9 sources) Primary osteoporosis; Translations: [Age-related osteoporosis without current pathological fracture] Onset: 09-03-2018 02-09-2024 Chronic Other and ill-defined cerebrovascular disease (1 source) Other cerebrovascular vasospasm and vasoconstriction; Translations: [Other cerebrovascular vasospasm and vasoconstriction] Onset: 02-12-2024 Chronic Other circulatory disease (8 sources) Elevated blood-pressure reading without diagnosis of hypertension; Translations: [Elevated blood-pressure reading, without diagnosis of hypertension] Episodic Other hereditary and degenerative nervous system conditions (20 sources) Restless legs; Translations: [Restless legs syndrome] 02-09-2024 Chronic Other nervous system disorders (10 sources) Carpal tunnel syndrome of left wrist; Translations: [Carpal tunnel syndrome, left upper limb] 02-09-2024 Chronic Other nervous system disorders (1 source) Carpal tunnel syndrome, left upper limb Chronic Other non-traumatic joint disorders (2 sources) Pain in left hip; Translations: [PAIN IN LEFT HIP] Onset: 02-17-2023 Episodic Other non-traumatic joint disorders (8 sources) Pain in right hip joint; Translations: [Pain in right hip] Episodic Other non-traumatic joint disorders (8 sources) Arthralgia of the pelvic region and thigh; Translations: [Pain in left hip] Episodic Residual codes; unclassified (13 sources) Acute insomnia; Translations: [Insomnia, unspecified] Episodic Residual codes; unclassified (9 sources) Insomnia; Translations: [Insomnia, unspecified] 02-09-2024 Episodic Residual codes; unclassified (8 sources) Body mass index 20-24 - normal; Translations: [Body mass index (BMI) 23.0-23.9, adult] Episodic Residual codes; unclassified (1 source) Pain, unspecified; Translations: [Pain, unspecified] Onset: 02-12-2024 Episodic Spondylosis; intervertebral disc disorders; other back problems (2 sources) Other intervertebral disc degeneration, lumbar region; Translations: [Spondylosis without myelopathy or radiculopathy, lumbar region] Onset: 10-22-2022 Chronic Spondylosis; intervertebral disc disorders; other back problems (20 sources) Sciatica; Translations: [Sciatica, right side] Onset: 10-22-2022 12-22-2023 Episodic Substance-related disorders (13 sources) Nicotine dependence, cigarettes, uncomplicated; Translations: [Tobacco user] Onset: 05-17-2022 Chronic Unclassified (8 sources) Exposure to acute respiratory syndrome coronavirus 2; Translations: [Contact with and (suspected) exposure to COVID-19] Urinary tract infections (16 sources) Urinary tract infectious disease; Translations: [Urinary tract infection, site not specified] Onset: 10-23-2018 Episodic Past or Other Problems Problem Classification Problem Date Documented Da te Episodic/Chronic Diabetes mellitus without complication (8 sources) Abnormal glucose level; Translations: [Other abnormal glucose] Onset: 10-23-2018 Episodic Genitourinary symptoms and ill-defined conditions (8 sources) Dysuria; Translations: [Dysuria] Onset: 10-23-2018 Episodic Headache; including migraine (13 sources) Headache; including migraine; Translations: [Left temporal headache] Inflammatory diseases of female pelvic organs (8 sources) Acute vaginitis; Translations: [Acute vaginitis] Onset: 11-22-2018 Episodic Other non-traumatic joint disorders (4 sources) Pain in right hip; Translations: [PAIN IN RIGHT HIP] Onset: 10-18-2022 Episodic Other non-traumatic joint disorders (8 sources) Shoulder joint pain; Translations: [Pain in right shoulder] Onset: 09-03-2018 Episodic Results Test Name Value Interpretation Reference Range Facility Office Visiton 04-02-2024 Follow-up visit [id number] Jazmin Stevera Khoury 1950 F Date Provider Department Center 04/02/2024 [id number], EHAB BH CARD [facility]antha Hos Family History Family history unknown: Yes Level of Service:20599 [place] OFFICE/OUTPATIENT NEW MODERATE MDM 45 MINUTES Normal [facility] Orders Onlyon 03-29-2024 Orders Only [id number] Jazmin Stevera Khoury 1950 F Date Provider Department Center 03/29/2024 [id number], HISTORICAL BH CARD Samantha Hos No family history on file Normal [facility] Referrals Officeon 4 Referrals Office [id number] Normal [facility] Urine Cultureon 03-19-2024 Bacteria identified Cx Nom (U) <9,000 colonies/ml mixed bacterial skin contaminants 2 Days PERFORMED BY: [place] [id number] PATHOLOGIST CRACKING STILL OPERATOR AYANA TAY M.D. Normal [facility] Comment on above: Performed By: #### C UU #### [address] Basophils Auto (Bld) [#/Vol] on 02-09-2024 Basophils (Bld) [#/Vol] 0.0 10 3/uL 0.0-0.1 [facility] Basophils/100 WBC Auto (Bld) on 02-09-2024 Basophils/100 WBC (Bld) 0.3 % 0.2-2.0 [facility] Cholesterol in LDL Calc [Mas s/Vol]on 02-09-2024 Cholesterol in LDL [Mass/Vol] 141.0 mg/dL [facility] Comment on above: <100 mg/dl [id number] 0-129 mg/dl NEAR OR ABOVE [id number] mg/dl BORDERLINE [id number] mg/dl HIGH>190 mg/dl VERY HIGH Cholesterol in VLDL Calc [Ma ss/Vol]on 02-09-2024 Cholesterol in VLDL [Mass/Vol] 25.2 mg/dL [facility] Eosinophils/100 WBC Auto (Bl d)on 02-09-2024 Eosinophils/100 WBC (Bld) 2.7 % 0.9-7.0 [facility] Erythrocyte distribution wid th Auto (RBC) [Ratio]on 02-09-2024 Erythrocyte distribution width (RBC) [Ratio] 14.0 % 11.0-15.0 [facility] Estimated glomerular filtrat ion rate (GFR) non- Americanon 02-09-2024 GFR/1.73 sq M.predicted among non-blacks MDRD (S/P/Bld) [Vol rate/Area] 59 mL/min/{1.73_m2} >=60 [facility] Hematocrit Auto (Bld) [Volum e fraction]on 02-09-2024 Hematocrit (Bld) [Volume fraction] 45.5 % 36.0-48.0 [facility] Hemoglobin [Mass/volume] in Bloodon 02-09-2024 Hemoglobin (Bld) [Mass/Vol] 14.6 g/dL 12.0-16.0 [facility] Laboratory - Chemistry and C hemistry - challengeon 02-09-2024 Calcium [Mass/Vol] 9.6 mg/dL 8.5-10.1 [facility] Chloride [Moles/Vol] 103 mmol/L 98-107 [facility] Cholesterol [Mass/Vol] 200 mg/dL <=200 [facility] Cholesterol in HDL [Mass/Vol] 34 mg/dL 40-60 [facility] Comment on above: > or =60 mg/dl - LOW CARDIOVASCULAR RISK<40 mg/dl - HIGH CARDIOVASCULAR RISK CO2 [Moles/Vol] 26.1 mmol/L 21.0-32.0 [facility] Creatinine [Mass/Vol] 0.93 mg/dL 0.55-1.02 [facility] GFR/1.73 sq M.predicted MDRD (S/P/Bld) [Vol rate/Area] mL/min/{1.73_m2} >=60 [facility] Glucose [Mass/Vol] 116 mg/dL 74-106 [facility] Potassium [Moles/Vol] 4.2 mmol/L 3.5-5.1 [facility] Sodium [Moles/Vol] 139 mmol/L 136-145 [facility] Triglyceride [Mass/Vol] 126 mg/dL <=150 [facility] Urea nitrogen [Mass/Vol] 22.0 mg/dL 7.0-18.0 [facility] Urea nitrogen/Creatinine [Mass ratio] 23.7 mg/mg [facility] Laboratory - Hematology and Cell countson 02-09-2024 Immature granulocytes/100 WBC (Bld) 0.3 % 0.0-0.5 [facility] Leukocytes [#/volume] correc dinora for nucleated erythrocytes in Blood by Automated counon 02-09-2024 WBC corrected for nucl RBC Auto (Bld) [#/Vol] 12.2 10 3/uL 4.0-11.0 [facility] Lymphocytes Auto (Bld) [#/Vo l]on 02-09-2024 Lymphocytes (Bld) [#/Vol] 2.0 10 3/uL 1.2-3.8 [facility] Lymphocytes/100 WBC Auto (Bl d)on 02-09-2024 Lymphocytes/100 WBC (Bld) 16.4 % 20.5-60.0 [facility] MCH Auto (RBC) [Entitic mass ]on 02-09-2024 MCH (RBC) [Entitic mass] 29.4 pg 26.7-34.0 [facility] MCHC Auto (RBC) [Mass/Vol]on 02-09-2024 MCHC (RBC) [Mass/Vol] 32.1 g/dL 29.9-35.2 [facility] MCV Auto (RBC) [Entitic vol] on 02-09-2024 MCV (RBC) [Entitic vol] 91.7 fL 81.0-99.0 [facility] Monocytes Auto (Bld) [#/Vol] on 02-09-2024 Monocytes (Bld) [#/Vol] 0.9 10 3/uL 0.3-0.8 [facility] Monocytes/100 WBC Auto (Bld) on 02-09-2024 Monocytes/100 WBC (Bld) 7.7 % 1.7-12.0 [facility] Neutrophils Auto (Bld) [#/Vo l]on 02-09-2024 Neutrophils (Bld) [#/Vol] 8.9 10 3/uL 1.4-6.5 [facility] Neutrophils/100 WBC Auto (Bl d)on 02-09-2024 Neutrophils/100 WBC (Bld) 72.6 % 43.0-75.0 [facility] No Panel Informationon 02-08 Eosinophils # (Auto) 0.3 10 3/uL 0.0-0.7 [facility] Immature Granulocyte # (Auto) 0.04 10 3/uL 0.00-0.03 [facility] Platelet mean volume Auto (B ld) [Entitic vol]on 02-09-2024 Platelet mean volume (Bld) [Entitic vol] 10.9 fL 9.5-13.5 [facility] Platelets Auto (Bld) [#/Vol] on 02-09-2024 Platelets (Bld) [#/Vol] 546 10 3/uL 150-450 [facility] RBC Auto (Bld) [#/Vol]on RBC (Bld) [#/Vol] 4.96 10 6/uL 4.20-5.40 [facility] Serum or plasma anion gap de terminationon 02-09-2024 Anion gap [Moles/Vol] 14.1 mmol/[facility] Serum or plasma total choles terol/high density lipoprotein (HDL) cholesterol mass maury 02-09-2024 Cholesterol.total/Cholest janay in HDL [Mass ratio] 5.9 {ratio} [facility] Comment on above: 3.3 - 4.4 LOW RISK4. 4 - 7.1 AVERAGE RISK7.1 - 11.0 MODERATE RISK>11.0 HIGH RISK Automated epithelial cells c ount in urine sediment (number/area)on 02-08-2024 Epithelial cells Auto (Urine sed) [#/Area] MODERATE #/LPF NONE/RARE [facility] Automated leukocytes count i n urine sediment (number/area)on 02-08-2024 WBC Auto (Urine sed) [#/Area] 0-2 #/HPF 0-2 [facility] Automated urine specific gra vity by refractometryon 02-08-2024 Specific gravity Refractometry automated (U) [Rel density] 1.025 1.005-1.025 [facility] Basophils Auto (Bld) [#/Vol] on 02-08-2024 Basophils (Bld) [#/Vol] 0.1 10 3/uL 0.0-0.1 [facility] Basophils/100 WBC Auto (Bld) on 02-08-2024 Basophils/100 WBC (Bld) 0.4 % 0.2-2.0 [facility] Bilirubin Auto test strip (U ) [Mass/Vol]on 02-08-2024 Bilirubin (U) [Mass/Vol] Negative NEGATIVE [facility] Casts typing in urine sedime nt by light microscopyon 02-08-2024 Casts LM Nom (Urine sed) NONE SEEN #/LPF NONE S EEN [facility] Color Auto (U)on 02-08-2024 Color (U) YELLOW YELLOW [facility] Eosinophils/100 WBC Auto (Bl d)on 02-08-2024 Eosinophils/100 WBC (Bld) 1.9 % 0.9-7.0 [facility] Erythrocyte distribution wid th Auto (RBC) [Ratio]on 02-08-2024 Erythrocyte distribution width (RBC) [Ratio] 13.9 % 11.0-15.0 [facility] Estimated glomerular filtrat ion rate (GFR) non- Americanon 02-08-2024 GFR/1.73 sq M.predicted among non-blacks MDRD (S/P/Bld) [Vol rate/Area] 51 mL/min/{1.73_m2} >=60 [facility] Globulin Calc (S) [Mass/Vol] on 02-08-2024 Globulin (S) [Mass/Vol] 3.7 g/dL [facility] Hematocrit Auto (Bld) [Volum e fraction]on 02-08-2024 Hematocrit (Bld) [Volume fraction] 48.8 % 36.0-48.0 [facility] Hemoglobin [Mass/volume] in Bloodon 02-08-2024 Hemoglobin (Bld) [Mass/Vol] 15.8 g/dL 12.0-16.0 [facility] INR in Platelet poor plasma by Coagulation assayon 02-08-2024 INR Coag (PPP) [Relative time] 1.05 {INR} [facility] Comment on above: DESIRED INR:2.0-3.0 CONDITIONS NOT LISTED BELOW2.5-3.5 FOR PROSTHETIC HEART VALVE REPLACEMENT2.5-3.5 RECURRENT THROMBOSIS Ketones Auto test strip (U) [Mass/Vol]on 02-08-2024 Ketones (U) [Mass/Vol] Negative NEGATIVE [facility] - Chemistry and C hemistry - challengeon 02-08-2024 Albumin [Mass/Vol] 4.0 g/dL 3.4-5.0 [facility] ALP [Catalytic activity/Vol] 80 U/L 46-116 [facility] ALT [Catalytic activity/Vol] 25 U/L 14-59 [facility] AST [Catalytic activity/Vol] 31 U/L 15-37 [facility] Bilirubin [Mass/Vol] 0.4 mg/dL 0.2-1.0 [facility] Calcium [Mass/Vol] 9.5 mg/dL 8.5-10.1 [facility] Chloride [Moles/Vol] 100 mmol/L 98-107 [facility] CO2 [Moles/Vol] 28.0 mmol/L 21.0-32.0 [facility] Creatinine [Mass/Vol] 1.06 mg/dL 0.55-1.02 [facility] GFR/1.73 sq M.predicted MDRD (S/P/Bld) [Vol rate/Area] mL/min/{1.73_m2} >=60 [facility] Glucose [Mass/Vol] 105 mg/dL 74-106 [facility] Potassium [Moles/Vol] 3.7 mmol/L 3.5-5.1 [facility] Protein [Mass/Vol] 7.7 g/dL 6.4-8.2 [facility] Sodium [Moles/Vol] 137 mmol/L 136-145 [facility] Urea nitrogen [Mass/Vol] 19.0 mg/dL 7.0-18.0 [facility] Urea nitrogen/Creatinine [Mass ratio] 17.9 mg/mg [facility] Laboratory - Hematology and Cell countson 02-08-2024 Immature granulocytes/100 WBC (Bld) 0.2 % 0.0-0.5 [facility] - Microbiology an d Antimicrobial susceptibilityOrdered By: Olga Schwartz on 02-08-2024 Bacteria identified Cx Nom (U) [facility] Leukocytes [#/volume] correc dinora for nucleated erythrocytes in Blood by Automated counon 02-08-2024 WBC corrected for nucl RBC Auto (Bld) [#/Vol] 13.4 10 3/uL 4.0-11.0 [facility] Lymphocytes Auto (Bld) [#/Vo l]on 02-08-2024 Lymphocytes (Bld) [#/Vol] 2.7 10 3/uL 1.2-3.8 [facility] Lymphocytes/100 WBC Auto (Bl d)on 02-08-2024 Lymphocytes/100 WBC (Bld) 20.3 % 20.5-60.0 [facility] MCH Auto (RBC) [Entitic mass ]on 02-08-2024 MCH (RBC) [Entitic mass] 30.2 pg 26.7-34.0 [facility] MCHC Auto (RBC) [Mass/Vol]on 02-08-2024 MCHC (RBC) [Mass/Vol] 32.4 g/dL 29.9-35.2 [facility] MCV Auto (RBC) [Entitic vol] on 02-08-2024 MCV (RBC) [Entitic vol] 93.1 fL 81.0-99.0 [facility] Monocytes Auto (Bld) [#/Vol] on 02-08-2024 Monocytes (Bld) [#/Vol] 1.1 10 3/uL 0.3-0.8 [facility] Monocytes/100 WBC Auto (Bld) on 02-08-2024 Monocytes/100 WBC (Bld) 8.1 % 1.7-12.0 [facility] Mucus LM Ql (Urine sed)on Mucus Ql (Urine sed) TRACE NONE SEEN [facility] Neutrophils Auto (Bld) [#/Vo l]on 02-08-2024 Neutrophils (Bld) [#/Vol] 9.3 10 3/uL 1.4-6.5 [facility] Neutrophils/100 WBC Auto (Bl d)on 02-08-2024 Neutrophils/100 WBC (Bld) 69.1 % 43.0-75.0 [facility] No Panel Informationon 02-07 Urine Culture Reflexed YES [facility] Urine Microscopic Review YES [facility] Eosinophils # (Auto) 0.3 10 3/uL 0.0-0.7 [facility] Immature Granulocyte # (Auto) 0.03 10 3/uL 0.00-0.03 [facility] Platelet mean volume Auto (B ld) [Entitic vol]on 02-08-2024 Platelet mean volume (Bld) [Entitic vol] 10.5 fL 9.5-13.5 [facility] Platelets Auto (Bld) [#/Vol] on 02-08-2024 Platelets (Bld) [#/Vol] 585 10 3/uL 150-450 [facility] Protein Auto test strip (U) [Mass/Vol]on 02-08-2024 Protein (U) [Mass/Vol] TRACE mg/dL NEG/TRACE [facility] Prothrombin time (PT)on PT Coag (PPP) [Time] 11.1 s 9.0-11.6 [facility] RBC Auto (Bld) [#/Vol]on RBC (Bld) [#/Vol] 5.24 10 6/uL 4.20-5.40 [facility] Serum or plasma albumin/glob ulin mass ratioon 02-08-2024 Albumin/Globulin [Mass ratio] 1.1 {ratio} [facility] Serum or plasma anion gap de terminationon 02-08-2024 Anion gap [Moles/Vol] 12.7 mmol/L [facility] Specific gravity Auto test s trip (U) [Rel density]on 02-08-2024 Specific gravity (U) [Rel density] CLEAR CLEAR [facility] Urine bacteria detection by automated methodon 02-08-2024 Bacteria Auto Ql (U) MODERATE #/HPF NONE SEEN [facility] Urine glucose measurement by test strip (mass/volume)on 02-08-2024 Glucose Test strip (U) [Mass/Vol] Negative NEGATIVE [facility] Urine hemoglobin detection b y automated test stripon 02-08-2024 Hemoglobin Auto test strip Ql (U) Negative NEGATIVE [facility] Urine nitrite detection by a utomated test stripon 02-08-2024 Nitrite Auto test strip Ql (U) SMALL NEGATIVE [facility] Nitrite Auto test strip Ql (U) Negative NEGATIVE [facility] Urine sediment crystal ident ification by light microscopyon 02-08-2024 Crystals LM Nom (Urine sed) None Seen #/HPF None Seen [facility] Urine sediment leukocyte cou nt by microscopy (number/high power field)on 02-08-2024 WBC LM.HPF (Urine sed) [#/Area] 10-20 #/HPF NONE SEEN [facility] Urobilinogen Auto test strip (U) [Mass/Vol]on 02-08-2024 Urobilinogen Qn (U) 0.2 {Toshia'U}/dL 0.2-1.0 [facility] pH Auto test strip (U)on pH (U) 5.5 [pH] 5.0-9.0 [facility] CBC AUTO DIFFon 02-09-2023 BASO # 0.0 103/ul Normal 0.0-0.1 [facility] Comment on above: Performed By: #### C BC #### [facility] [address], [place] [address] Dr. Thierno Phipps Basophils/100 WBC (Bld) 0.4 % Normal 0.2-2.0 [facility] Comment on above: Performed By: #### C BC #### [facility] [address] [place] [address] Dr. Thierno Phipps EO # 0.5 103/ul Normal 0.0-0.7 [facility] Comment on above: Performed By: #### C BC #### [facility] [address] [place] [address] Dr. Thierno Phipps Eosinophils/100 WBC (Bld) 4.8 % Normal 0.9-7.0 [facility] Comment on above: Performed By: #### C BC #### [facility] [address] [place] [address] Dr. Thierno Phipps Erythrocyte distribution width (RBC) [Ratio] 13.2 % Normal 11.0-15.0 [facility] Comment on above: Performed By: #### C BC #### [facility] [address] [place] [address] Dr. Thierno Phipps Hematocrit (Bld) [Volume fraction] 48.4 % Critically high 36.0-48.0 [facility] Comment on above: Performed By: #### C BC #### [facility] [address] [place] [address] Dr. Thierno Phipps Hemoglobin (Bld) [Mass/Vol] 15.8 g/dL Normal 12.0-16.0 [facility] Comment on above: Performed By: #### C BC #### [facility] [address] [place] [address] Dr. Thierno Phipps IG # 0.03 10e3/ul Normal 0.00-0.03 [facility] Comment on above: Performed By: #### C BC #### [facility] [address] [place] [address] Dr. Thierno Phipps IG % 0.3 % Normal 0.0-0.5 [facility] Comment on above: Performed By: #### C BC #### [facility] [address] [place] [address] Dr. Thierno Phipps LYMPH # 2.9 103/ul Normal 1.2-3.8 [facility] Comment on above: Performed By: #### C BC #### [facility] [address] [place] [address] Dr. Thierno Phipps Lymphocytes/100 WBC (Bld) 30.1 % Normal 20.5-60.0 [facility] Comment on above: Performed By: #### C BC #### [facility] [address] [place] [address] Dr. Thierno Phipps MANUAL DIFF REQ NO Normal [facility] Comment on above: Performed By: #### C BC #### [facility] [address] [place] [address] Dr. Thierno Phipps MCH (RBC) [Entitic mass] 29.6 pg Normal 26.7-34.0 [facility] Comment on above: Performed By: #### C BC #### [facility] [address] [place] [address] Dr. Thierno Phipps MCHC (RBC) [Mass/Vol] 32.6 g/dL Normal 29.9-35.2 [facility] Comment on above: Performed By: #### C BC #### [facility] [address] [place] [address] Dr. Thierno Phipps MCV (RBC) [Entitic vol] 90.8 fL Normal 81.0-99.0 [facility] Comment on above: Performed By: #### C BC #### [facility] [address] [place] [address] Dr. Thierno Phipps MONO # 0.8 103/ul Normal 0.3-0.8 [facility] [place] Comment on above: Performed By: #### C BC #### [facility] [address] [place] [address] Dr. Thierno Phipps Monocytes/100 WBC (Bld) 8.2 % Normal 1.7-12.0 [facility] Comment on above: Performed By: #### C BC #### [facility] [address] [place] [address] Dr. Thierno Phipps NEUT # 5.4 103/ul Normal 1.4-6.5 [facility] Comment on above: Performed By: #### C BC #### [facility] [address] [place] [address] Dr. Thierno Phipps Neutrophils/100 WBC (Bld) 56.2 % Normal 43.0-75.0 [facility] Comment on above: Performed By: #### C BC #### [facility] [address] [place] [address] Dr. Thierno Phipps Platelet mean volume (Bld) [Entitic vol] 10.4 fL Normal 9.5-13.5 [facility] Comment on above: Performed By: #### C BC #### [facility] [address] [place] [address] [address] Thierno Phipps PLT 626 103/ul Critically high 150-450 [facility] Comment on above: Performed By: #### C BC #### [facility] [address] [place] [address] Dr. Thierno Phipps RBC 5.33 106/ul Normal 4.20-5.40 [facility] Comment on above: Performed By: #### C BC #### [facility] [address] [place] [address] Dr. Thierno Phipps WBC 9.6 103/ul Normal 4.0-11.0 [facility] Comment on above: Performed By: #### C BC #### [facility] [address] [place] [address] Dr. Thierno Phipps LIPID PROFILEon 02-09-2023 CHOL-HDL RATIO NORM SEE BELOW Normal [facility] Comment on above: Result Comment: 3.3 - 4.4 LOW RISK 4.4 - 7.1 AVERAGE RISK 7.1 - 11.0 MODERATE RISK >11.0 HIGH RISK Performed By: #### L IPID, CMP #### [facility] [address] [place] [address] Dr. Thierno Phipps Cholesterol [Mass/Vol] 267 mg/dL Critically high <=200 [facility] Comment on above: Performed By: #### L IPID, CMP #### [facility] [address] [place] [address] Dr. Thierno Phipps Cholesterol in HDL [Mass/Vol] 35 mg/dL Critically low 40-60 [facility] Comment on above: Performed By: #### L IPID, CMP #### [facility] [address] [address] [address] Thierno Phipps Cholesterol in LDL [Mass/Vol] 186.0 mg/dL Normal [facility] [place] Comment on above: Performed By: #### L IPID, CMP #### [facility] [address] [address] [address] Thierno Phipps Cholesterol.total/Cholest janay in HDL [Mass ratio] 7.6 {ratio} Normal [facility] Comment on above: Performed By: #### L IPID, CMP #### [facility] [address] [address] [address] Thierno Phipps HDL NORMAL > or = 60 mg/dl - LOW CARDIOVASCULAR RISK <40 mg/dl - HIGH CARDIOVASCULAR RISK Normal [facility] Comment on above: Performed By: #### L IPID, CMP #### [facility] [address] [place] [address] Dr. Thierno Phipps LDL CALC NORMAL SEE BELOW Normal [facility] Comment on above: Result Comment: <100 mg/dl OPTIMAL 100 - 129 mg/dl NEAR OR ABOVE OPTIMAL 130 - 159 mg/dl BORDERLINE HIGH 160 - 189 mg/dl HIGH >190 mg/dl VERY HIGH Performed By: #### L IPID, CMP #### [facility] [address] [place] [address] Dr. Thierno Phipps Triglyceride [Mass/Vol] 230 mg/dL Critically high <=150 [facility] Comment on above: Performed By: #### L IPID, CMP #### [facility] [address] [address] [address] Thierno Phipps VLDL CALC 46.0 mg/dL Normal [facility] Comment on above: Performed By: #### L IPID, CMP #### [facility] [address] [address] [address] Thierno Phipps MICROALBUMIN, RAND URon 04-0 mALB <1.3 Normal <=30.0 [facility] Comment on above: Performed By: #### M ALBR #### [facility] [address] [address] [address] Thierno Phipps PROF 14(COMP METB)on 023 Albumin [Mass/Vol] 4.0 g/dL Normal 3.4-5.0 [facility] Comment on above: Performed By: #### L IPID, CMP #### [facility] [address] [address] [address] Thierno Phipps Albumin/Globulin [Mass ratio] 1.0 {ratio} Normal [facility] Comment on above: Performed By: #### L IPID, CMP #### [facility] [address] [address] [address] Thierno Phipps ALP [Catalytic activity/Vol] 93 U/L Normal 46-116 [facility] Comment on above: Performed By: #### L IPID, CMP #### [facility] [address] [address] [address] Thierno Phipps ALT [Catalytic activity/Vol] 30 U/L Normal 14-59 [facility] Comment on above: Performed By: #### L IPID, CMP #### [facility] [address] [address] [address] Thierno Phipps Anion gap [Moles/Vol] 7.9 mmol/L Normal [facility] Comment on above: Performed By: #### L IPID, CMP #### [facility] [address] [address] [address] Thierno Phipps AST [Catalytic activity/Vol] 18 U/L Normal 15-37 [facility] Comment on above: Performed By: #### L IPID, CMP #### [facility] [address] [address] [address] Thierno Phipps Bilirubin [Mass/Vol] 0.4 mg/dL Normal 0.2-1.0 [facility] Comment on above: Performed By: #### L IPID, CMP #### [facility] [address] [address] [address] Thierno Phipps Calcium [Mass/Vol] 10.0 mg/dL Normal 8.5-10.1 [facility] Comment on above: Performed By: #### L IPID, CMP #### [facility] [address] [address] [address] Thierno Phipps Chloride [Moles/Vol] 101 mmol/L Normal 98-107 [facility] Comment on above: Performed By: #### L IPID, CMP #### [facility] [address] [address] [address] Thierno Phipps CO2 [Moles/Vol] 32.9 mmol/L Critically high 21.0-32.0 [facility] Comment on above: Performed By: #### L IPID, CMP #### [facility] [address] [address] [address] Thierno Phipps Creatinine [Mass/Vol] 0.97 mg/dL Normal 0.55-1.02 [facility] Comment on above: Performed By: #### L IPID, CMP #### [facility] [address] [address] [address] Thierno Phipps EGFR-AF IRANIAN >60 Normal >=60 [facility] Comment on above: Performed By: #### L IPID, CMP #### [facility] [address] [address] [address] Thierno Phipps EGFR-NON AF IRANIAN 56 mL/min/1.73m2 Critically low >=60 [facility] Comment on above: Performed By: #### L IPID, CMP #### [facility] [address] [address] [address] Thierno Phipps Globulin (S) [Mass/Vol] 4.0 g/dL Normal [facility] Comment on above: Performed By: #### L IPID, CMP #### [facility] [address] [address] [address] Thierno Phipps Glucose [Mass/Vol] 119 mg/dL Critically high 74-106 [facility] Comment on above: Performed By: #### L IPID, CMP #### [facility] [address] [address] [address] Thierno Phipps Potassium [Moles/Vol] 3.8 mmol/L Normal 3.5-5.1 [facility] Comment on above: Performed By: #### L IPID, CMP #### [facility] [address] [address] [address] Thierno Phipps Protein [Mass/Vol] 8.0 g/dL Normal 6.4-8.2 [facility] Comment on above: Performed By: #### L IPID, CMP #### [facility] [address] [address] [address] Thierno Phipps Sodium [Moles/Vol] 138 mmol/L Normal 136-145 [facility] Comment on above: Performed By: #### L IPID, CMP #### [facility] [address] [address] [address] Thierno Phipps Urea nitrogen [Mass/Vol] 14.0 mg/dL Normal 7.0-18.0 [facility] Comment on above: Performed By: #### L IPID, CMP #### [facility] [address] [address] [address] Thierno Phipps Urea nitrogen/Creatinine [Mass ratio] 14.4 mg/mg Normal [facility] Comment on above: Performed By: #### L IPID, CMP #### [facility] [address] [address] [address] Thierno Phipps XR LSPINE 2_3 VIEWSon 2021 XR LSPINE 2_3 VIEWS EXAMINATION: XR LSPINE 2_3 VIEWS HISTORY: Right side sciatica ; acute low back pain since falling one month ago COMPARISON: CT abdomen pelvis 04/05/2021 FINDINGS: BONES: Mild grade 1 retrolisthesis of L4 on 5. Moderate degenerative facet arthropathy L3-L4 through L5-S1. No fracture. DISC SPACES: Marked narrowing L4-L5. Mild narrowing L2-L3, L3-L4. PARASPINOUS: Negative. No paraspinous abnormality is seen. OTHER: Negative. IMPRESSION: 1. No appreciable acute abnormality. 2. Grossly stable L4-L5 marked degenerative disc disease and multilevel moderate degenerative facet arthropathy. Electronically authenticated by: RAIN HOWE Date: 2022-10-19 21:47 Normal [facility] XR HIP RT 2 3V W PELVISon XR HIP RT 2 3V W PELVIS EXAM: AP of the pelvis and right hip HISTORY: . Pain in right hip joint . COMPARISON: None. TECHNIQUE: 3 views FINDINGS: Bony pelvis is intact with no fracture or bony destructive process is noted. There is slight narrowing of the right hip joint. Small spurs are noted involving the femoral head as well as acetabulum. No fracture or dislocation is noted. Degenerative disc disease and spondylosis of the lower lumbar spine is noted. Left hip arthroplasty is noted. IMPRESSION: 1. Mild osteoarthritic changes of the right hip. 2. No acute bony abnormality of the pelvis. 3. Degenerative disc disease and spondylosis of the lower lumbar spine Electronically authenticated by: CHAITANYA DAVIS Date: 2022-10-18 16:56 Normal [facility] CT LUNG CANCER SCREENINGon 0 05-17-2022 CT LUNG CANCER SCREENING EXAMINATION: CT LUNG CANCER SCREENING HISTORY: Tobacco dependence caused by cigarettes COMPARISON: No relevant comparison available. TECHNIQUE: Axial, Coronal, and Sagittal images were created without the administration of IV contrast material. Dose reduction techniques were achieved by using automated exposure control and/or adjustment of mA and/or kV according to patient size and/or use of iterative reconstruction technique. FINDINGS: LUNGS: A few scattered punctate pulmonary nodules measuring 2 mm, nonspecific. PLEURA: No mass, effusion, or pneumothorax. VASCULATURE: No abnormality. JCAOBY: No mass or pathologic adenopathy. MEDIASTINUM: Calcified left hilar lymph nodes CARDIAC: No enlargement or pericardial effusion. Mild to moderate coronary atherosclerosis AORTA: No aneurysm or dissection. CHEST WALL: No mass or axillary adenopathy BONES: Right shoulder arthroplasty LIMITED ABDOMEN: Multiple calcifications in the spleen, prior granulomatous process OTHER: Negative. IMPRESSION: LUNG SCREENING: Lung-RADS Category 1 Negative. No nodules and definitely benign nodules. Continue annual screening with LDCT in 12 months. Electronically authenticated by: CHAITANYA CROCKER Date: 2022-05-17 15:19 Normal [facility] XR CHEST 2 Von 04-13-2022 XR CHEST 2 V EXAM: XR CHEST 2 V HISTORY: Right flank pain EXAM: XR CHEST 2 V INDICATION: 71 years old Female Right flank pain COMPARISON: March 13, 2018 FINDINGS: The cardiac silhouette is normal. There is no pulmonary edema. The lungs are clear. There is no pneumonia. There is no pneumothorax. There is no abnormal foreign body. IMPRESSION: There is no acute abnormality. Electronically authenticated by: WICHO CUETO Date: 2022-04-13 13:32 Normal [facility] XR KUB 1 VIEWon 04-13-2022 XR KUB 1 VIEW EXAMINATION: XR KUB 1 VIEW HISTORY: Right flank pain COMPARISON: No relevant comparison available. FINDINGS: KIDNEY/URETER - RIGHT: No visible renal or ureteral calcifications. KIDNEY/URETER - LEFT: No visible renal or ureteral calcifications. PELVIS: No visible ureteral calcifications. Any visible calcifications favor phleboliths. BOWEL: No abnormal dilation or deviation. BONES: Moderate right hip osteoarthritis. Left hip arthroplasty. Degenerative spondylosis of the spine OTHER: Negative. No abnormal gaseous collections. IMPRESSION: No definite urinary tract calculi Electronically authenticated by: CHAITANYA CROCKER Date: 2022-04-13 17:20 Normal [facility] Vital Signs Date Time Vital Sign Value Performing Clinician Facility 02-13-2024 11:27-0400 Body height 160.02 cm [facility] 02-13-2024 11:27-0400 Body mass index (BMI) [Ratio] 22.4 kg/m2 [facility] 02-13-2024 11:27-0400 Body weight 57.6 kg [facility] 02-13-2024 11:27-0400 Diastolic blood pressure 53 mm[Hg] [facility] 02-13-2024 11:27-0400 Heart rate 60 /min [facility] 02-13-2024 11:27-0400 Systolic blood pressure 89 mm[Hg] [facility] 08-14-2023 15:00-0400 Body height 160.02 cm Olga Schwartz Other [facility] Other 08-14-2023 15:00-0400 Body mass index (BMI) [Ratio] 24.37 kg/m2 Olga Schwartz Other [facility] 08-14-2023 15:00-0400 Body weight 62.42 kg Olga Schwartz Other [facility] Other 08-14-2023 15:00-0400 Diastolic blood pressure 69 mm[Hg] Olga Schwartz Other [facility] Other 08-14-2023 15:00-0400 Systolic blood pressure 107 mm[Hg] Olga Schwartz Other [facility] Other 05-16-2023 14:00-0400 Body height 160.02 cm Olga Schwartz Other [facility] Other 05-16-2023 14:00-0400 Body mass index (BMI) [Ratio] 24.8 kg/m2 Olga Schwartz Other [facility] Other 05-16-2023 14:00-0400 Body weight 63.5 kg Olga Schwartz Other [facility] Other 05-16-2023 14:00-0400 Diastolic blood pressure 65 mm[Hg] Olga Schwartz Other [facility] Other 05-16-2023 14:00-0400 Systolic blood pressure 119 mm[Hg] Olga Schwartz Other [facility] Other 02-07-2023 16:00-0400 Body height 160.02 cm Olga Schwartz Other [facility] Other 02-07-2023 16:00-0400 Body mass index (BMI) [Ratio] 25.33 kg/m2 Olga Schwartz Other [facility] Other 02-07-2023 16:00-0400 Body weight 64.86 kg Olga Schwartz Other [facility] Other 02-07-2023 16:00-0400 Diastolic blood pressure 82 mm[Hg] Olga Schwartz Other [facility] Other 02-07-2023 16:00-0400 SaO2% (BldA) [Mass fraction] 97 % Olga Schwartz Other [facility] Other 02-07-2023 16:00-0400 Systolic blood pressure 124 mm[Hg] Olga Schwartz Other [facility] Other Encounters Encounter Date Encounter Type Care Provider Facility Start: 04-30-2024 End: 04-30-2024 ambulatory NESTOR IVERSON Not Available Start: 04-02-2024 End: 04-02-2024 ambulatory PETERSONAB [facility] Start: 03-26-2024 ambulatory Neto Hooper Facility:[facility] Start: 03-25-2024 End: 03-25-2024 ambulatory DAWIT HOWARD Not Available Start: 03-19-2024 End: 03-19-2024 ambulatory Olga Schwartz Facility:[facility] Start: 02-13-2024 End: 02-13-2024 [facility]ulatory [facility] Work Phone: Start: 02-13-2024 End: 02-13-2024 Patient encounter procedure [facility] Work Phone: Start: 02-12-2024 ambulatory ELOINA [facility] Start: 02-12-2024 ambulatory SAIRA Valente [facility] Start: 02-09-2024 Non-patient / Non-visit [facility] Work Phone: Start: 02-08-2024 End: 02-11-2024 Emergency department patient visit SAIRA Valente [facility] Start: 02-08-2024 Non-patient / Non-visit [facility] Work Phone: Start: 01-15-2024 Non-patient / Non-visit [facility] Work Phone: Start: 12-22-2023 Non-patient / Non-visit [facility] Work Phone: Start: 10-24-2023 End: 10-24-2023 ambulatory Olga Schwartz Other [facility] Other Start: 10-24-2023 Telephone encounter Olga Schwartz [facility] Start: 09-22-2023 End: 09-22-2023 ambulatory Olga Schwartz Other [facility] Other Start: 09-22-2023 Telephone encounter Olga Schwartz [facility] Start: 08-23-2023 End: 08-23-2023 ambulatory Olga Schwartz Other [facility] Other Start: 08-23-2023 Telephone encounter Olga Schwartz [facility] Start: 08-14-2023 End: 08-14-2023 ambulatory Olga Schwartz Other [facility] Other Start: 08-14-2023 Office outpatient visit 15 minutes Olga Schwartz [facility] Start: 08-14-2023 Telephone encounter Olga Schwartz [facility] Start: 07-24-2023 End: 07-24-2023 ambulatory Olga Schwartz Other [facility] Other Start: 07-24-2023 Telephone encounter Olga Schwartz [facility] Start: 06-23-2023 End: 06-23-2023 ambulatory Olga Schwartz Other [facility] Other Start: 06-23-2023 Telephone encounter Olga Schwartz [facility] Start: 06-12-2023 End: 06-12-2023 ambulatory Olga Schwartz Other [facility] Other Start: 06-12-2023 Telephone encounter Olga Schwartz [facility] Start: 05-16-2023 End: 05-16-2023 ambulatory Olga Schwartz Other [facility] Other Start: 05-16-2023 Office outpatient visit 15 minutes Olga Schwartz [facility] Start: 02-24-2023 End: 02-24-2023 ambulatory Olga Schwartz Other [facility] Other Start: 02-24-2023 Telephone encounter Olga Schwartz [facility] Start: 02-13-2023 End: 02-13-2023 ambulatory Fernando Silverio Other [facility] Other Start: 02-13-2023 Telephone encounter Olga Schwartz [facility] Start: 02-09-2023 End: 02-10-[address] OLGA SCHWARTZ Facility:[facility] Start: 02-07-2023 End: 02-07-2023 ambulatory Olga Schwartz Other [facility] Other Start: 02-07-2023 Office outpatient visit 25 minutes Olga Schwartz [facility] Start: 10-18-2022 End: 10-19-[address] OLGA SCHWARTZ Facility:[facility] Start: 10-14-2022 Pre-procedure evaluation check Olga Schwartz Other [facility] Other Start: 05-17-2022 End: 05-18-[address] OLGA SCHWARTZ Facility:[facility] Start: 04-13-2022 End: 04-14-[address] OLGA SCHWARTZ Facility:[facility] Procedures Date Procedure Procedure Detail Performing Clinician Start: 02-08-2024 Bacteria identified in Urine by Culture Start: 11-22-2018 Screening for malign ant neoplasm of cervix Olga Schwartz Other Plan of Treatment Date Care Activity Detail Author Start: 02-13-2024 Patient referral [facility] Work Phone: Patient referral [facility] Work Phone: Immunizations Immunization Date Immunization Notes Care Provider [facility] 08-10-2022 influenza virus vaccine, split virus (incl. purified surface antigen) Olga Schwartz Other [facility] Other 08-10-2022 influenza virus vaccine, unspecified formulation [facility] Payers Date Payer Category Payer Medicaid [id number] 2. [id number] 1961 Medicare [id number] 2. [id number] 1950 Unknown [id number] 2.16.84 [id number] 1950 Unknown [id number] 2.16.84 [id number] 1950 Unknown [id number] 2.16.84 [id number] 1950 Unknown [id number] 2.16.84 [id number] 1950 Unknown [id number] 2.16.8 [id number] 1950 Unknown [id number] 2.16.8 [id number] 1948 Unknown [id number] 2.16.8 [id number] 1948 Unknown [id number] 2.16.84 [id number] 1950 Unknown [id number] 2.16.84 [id number] Social History Date Type Detail Facility Unknown if ever smoked [facility] Other Sex Assigned At Sex Assigned At Bir th [facility] Other Start: 1950 Sex Assigned At Female [facility] Progress note 04-02-2024 Note Date & Type Note Facility 04-02-2024 Note [facility] Cardiology Clinic Note Chief Complaint: New patient here to establish care. Ref from Dr. Schwartz for bradycardia. She had stroke last month and was admitted to [facility]. Still smokes almost 1 PPD but is trying to cut back. Says she's had mitral valve prolapse forever . Does feel palpitations at times. Thinks she used to see cardiology in [place] years ago. Denies chest pain, SOB, and LE edema. HPI: Lesly Steve is a 73 y.o. female With a history of a recent stroke, longstanding hypertension and dyslipidemia, smoking and family history premature coronary artery disease here to establish care She was found to be bradycardic on a recent ECG. The patient complains of significant lightheadedness, dizziness. She may have had a syncopal episode a year ago. She used to see a news analyst several years ago for what she describes as mitral valve prolapse . She was apparently on Tenormin at 1 point. She denies a prior history of myocardial infarction, she has never had a heart catheterization but has had a stress test many years ago. She does not recall ever being diagnosed with atrial fibrillation and has not been on anticoagulants in the past. Cardiology ROS: Review of Systems Cardiovascular: Positive for palpitations. Neurological: Positive for headaches and light-headedness. All other systems reviewed and are negative. Past Medical History She has no past medical history on file. Surgical History She has no past surgical history on file. Social History She has no history on file for tobacco use, alcohol use, and drug use. Family History No family history on file. Allergies Patient has no allergy information on record. Medications No current outpatient medications on file. Last Recorded Vitals BP 136/70 (BP Location: Right arm, Patient Position: Sitting) Pulse 53 Ht 1.626 m (5' 4 ) Wt 56.7 kg (125 lb) SpO2 96% BMI 21.46 kg/m??? Physical Examination: GENERAL: alert and oriented x3, well developed, in no acute distress. HEAD: atraumatic, normocephalic. EYES: ABDELRAHMAN, EOMI. NECK: trachea midline, no JVD present, no carotid bruits present. CARDIAC: S1, S2 present. RRR. No murmur, rubs, or gallops. RESPIRATORY: CTAB, no increased effort of breathing, no rales, rhonchi, or wheezing. ABDOMEN: soft, nontender, nondistended. EXTREMITIES: no lower extremity edema, peripheral pulses are 2+ bilaterally. No rash/skin discoloration present. NEURO: strength/sensation equal and symmetric in bilateral upper and lower extremities. PSYCH: appropriate mood, affect, and judgement. Investigations: LABS: 03/25/2024: White count is elevated 11.1, hemoglobin 13.1, platelets are significantly elevated at 766 BUN is 20, creatinine is 1.16 which is elevated TSH is 2.002 12-lead EKG 03/19/2024 Sinus bradycardia, 42 bpm Echocardiogram 02/2024: Global left ventricular systolic function is normal; EF 55 to 60%. No significant valvular dysfunction. Normal right-sided pressures. Anterior free space, small effusion versus fat pad Carotid Dopplers IMPRESSION: There is approximately 69% stenosis of the proximal right internal carotid artery. No significant stenosis on the left. Electronically authenticated by: MERY JORGE Date: 02/08/2024 20:50 Assessment: Bihemispheric multifocal patchy foci Left >Right ischemic CVA Right carotid artery stenosis Sinus bradycardia Hypertension Dyslipidemia - LDL 141 Nicotine dependence Seizure disorder H/O Pancreatitis Plan: The patient's bradycardia may be medication related (Requip), Related to her recent CVA, or potentially related to ischemic heart disease and or conduction abnormalities A 30-day event monitor Given risk factor profile including stroke, carotid stenosis, hypertension, dyslipidemia and smoking, a Lexiscan stress test is warranted to rule out occult ischemia Continue medical therapy with full-strength aspirin and high intensity statin for now Treat noncardiac comorbidities as clinically appropriate Smoking cessation Return to clinic following testing Jaron Johnson MD, MPH, [facility], [facility], [facility] Interventional Cardiology Pager Email: [email or web address] Evaluation note 08-14-2023 Note Date & Type Note Facility 08-14-2023 Evaluation note Encounter Date Diagnosis Assessment Notes Aug, LLQ abdominal pain (ICD-10 - R10.32) Reviewed paperwork and test results from [facility]. She agrees she needs a colonoscopy due to ongoing blood in her stool and LLQ pain. Agrees to referral to Dr. Stevenson. Aug, Hematochezia (ICD-10 - K92.1) as above [facility] Other Clinical Note 02-09-2023 Note Date & Type Note Facility 02-09-2023 Note PROCEDURE: XR HIP LT 2 3V W PELVIS HISTORY: Pain of left hip joint since falling 2 months ago COMPARISON: None. FINDINGS: BONES:Mild narrowing of the right hip joint space. No fracture, dislocation, or significant periarticular osteophytes. Prior left hip joint replacement without evidence of hardware fracture or loosening. No bone fracture dislocation. SOFT TISSUES:No visible soft tissue swelling. EFFUSION:None visible. OTHER: Moderate disc space narrowing L4-L5, L5-S1. IMPRESSION: 1. Left hip replacement without evidence of hardware failure or suspicious findings to account for patient's symptoms. 2. Mild degenerative changes of right hip joint. 3. Moderate degenerative changes of lower lumbar spine. Electronically authenticated by: RAIN HOWE Date: 2023-02-09 11:04 [facility] Evaluation note 02-07-2023 Note Date & Type Note Facility 02-07-2023 Evaluation note Encounter Date Diagnosis Assessment Notes Feb, Essential hypertension (ICD-10 - I10) Due for labs. Chronic problem. Feb, B12 deficiency (ICD-10 - E53.8) Pt states she was previously on injections. Would like to check level due to fatigue. Feb, Other hyperlipidemia (ICD-10 - E78.49) Chronic problem, on statin, due for labs. Feb, Left hip pain (ICD-10 - M25.552) Several months - check Xray Also checked OARRS and reviewed pain contract brii Grace. [facility] Other Evaluation note Note Date & Type Note Facility Evaluation note No Information [facility] Other Evaluation note Note Date & Type Note Facility Evaluation note [employer] Other Evaluation note Note Date & Type Note Facility Evaluation note Diagnosis Onset Date Seizure acute Stroke acute [facility] Work Phone: History general Narrative - Reported Note Date & Type Note Facility History general Narrative - Reported Type Medical History Bronchitis Medical History Anxiety and depression Medical History Essential hypertension Medical History Migraine Medical History Acute insomnia Medical History B12 deficiency Medical History Left temporal headache Medical History Current episode of m ajor depressive disorder without prior episode, unspecified depression episode severity Medical History Sciatic pain, right Medical History Restless leg syndrome Medical History FUENTES (generalized anxiety disorde r) Medical History Abdominal pain Medical History SERUM LIPIDS HIGH Surgical History CATARACT EXTRAXTION Surgical History TOTAL HIP ARTHROSCOPY-LEFT Surgical History TOTAL HYSTERECTOMY Surgical History BSO Surgical History RIGHT HAND RECONSTRUCTION Hospitalization History SEE SURGICAL HX [facility] Other History general Narrative - Reported Note Date & Type Note Facility History general Narrative - Reported [facility] Other Hospital Discharge instructions Note Date & Type Note Facility Hospital Discharge instructions Ambulatory OrdersReferral to Neurology Time Frame: 02/13/24, Location: None Selected [facility] Work Phone: Summary Purpose Family History No Family History Records Found Relationship Condition Age at Onset Recorded Date/T sam father Unknown Not Specified Unknown Advance Directives No Advanced Directives Records Found Advance Directive Response Recorded Date/ Time Advance Directives No February 12 10:17am Reason for Referral Reason Needs colonosco py - had imaging in [facility] ER. Diagnosis 1 LLQ abdominal pain ( R10.32) Referral Organization [facility] Referring Provider First Name Olga Referring Provider Last Name Efren Referring Provider Specialty Family [facility] cine Referred Organization [facility] Referred Provider Flakito Stevenson Referred Address [address], [place],[address] Referred Provider Specialty General Surg glen Referral Priority Routine General Notes Maida Dave 02:01:18 PM >received today, attachments made, waiting for notes to be locked Chief Complaint and Reason for Visit Chief Complaint Amb Documentation Amb Documentation [facility] d/c Reason for Visit Seizure Stroke Additional Source Comments REASON FOR VISIT (unrecogniz ed section and content) LABS RESULTSNo Information3 month Follow upRefillUS resultRefillrefillneed reportsabdominal painRefillsrefillrefill INFORMATION SOURCE (unrecogn ized section and content) DATE CREATED AUTHOR 02/18/2023 [facility] DATE CREATED AUTHOR AUTHOR'S ORGANIZ ATION 02/13/2024 [facility] DATE CREATED AUTHOR AUTHOR'S ORGANIZ ATION 02/15/2024 [facility] DATE CREATED AUTHOR AUTHOR'S ORGANIZ ATION 03/24/2024 [facility] DATE CREATED AUTHOR AUTHOR'S ORGANIZ ATION 03/28/2024 [facility] DATE CREATED AUTHOR AUTHOR'S ORGANIZ ATION 04/03/2024 [facility] DATE CREATED AUTHOR AUTHOR'S ORGANIZ ATION 05/01/2024 [facility] [employer] Care Teams (unrecognized sec tion and content) Team Status: Active Member Role Status Dates Olga Schwartz MD Primary Care Provider Active Team Status: Active Member Role Status Dates Olga Schwartz MD Primary Care Provider Active Start: December 22, 2023 ANNABEL Vann Attending Provider Active Start : December 22, 2023 Team Status: Active Member Role Status Dates Olga Schwartz MD Primary Care Provider Active Start: January 15, 2024 ANNABEL Vann Attending Provider Active Start : January 15, 2024 Team Status: Active Member Role Status Dates Olga Schwartz MD Primary Care Provide r, Attending Provider Active Start: February 08, 2024 Team Status: Active Member Role Status Dates Olga Schwartz MD Primary Care Provide r, Attending Provider Active Start: February 09, 2024 Team Status: Inactive Member Role Status Dates Olga Schwartz MD Primary Care Provide r, Attending Provider Active Start: February 13, 2024 End: February 13, 2024 Goals (unrecognized section and content) Goals may be documented in a n alternate section FOR RECORDS PERTAINING TO PATIENTS WHO ARE OR HAVE BEEN ENROLLED IN A CHEMICAL DEPENDENCY/SUBSTANCEABUSE PROGRAM, SOME INFORMATION MAY BE OMITTED. This clinical summary was aggregated from multiple sources. Caution should be exercised in using it in the provision of clinical care. This summary normalizes information from multiple sources, and as a consequence, information in this document may materially change the coding, format and clinical context of patient data. In addition, data may be omitted in some cases. CLINICAL DECISIONS SHOULD BE BASED ON THE PRIMARY CLINICAL RECORDS. [employer] provides no warranty or guarantee of the accuracy or completeness of information in this document.
--- NOTE | 2024-05-31 08:00 | NM_ITS ---
Patient Name: MATEO MANSFIELD MR#: [id number] : 1950 Exam Date: 05/31/2024 Ordering Doctor: DR ANGI MIXON M.D. RADIOLOGY REPORT PROCEDURE: NM LESLIE PERF SPECT REST STR COMPARISON: None. INDICATIONS: ABNORMAL EKG, CEREBROVASCULAR ACCIDENT TECHNIQUE: Exam Description: Stress/Rest one day protocol gated SPECT Rest Imagin.2 mCi Tc-99m Cardiolite IV on 05/31/2024 Stress Imaging 29.9 mCi Tc-99m Cardiolite IV on 05/31/2024 Exercise Protocol: 0.4 mg Lexiscan given IV Heart Rate (bpm): Rest: 57 Max: 92 PMHR: 63 Blood Pressure: Rest: 150/86 Max: 150/86 Symptoms: Rest and peak stress ECG findings were pending and the exercise portion of the study was pending per attending physician Dr. SORENSEN . For more details please see separate cardiac stress test report. FINDINGS: QUALITY OF STUDY: Excellent. PERFUSION DEFECT: None. LOCATION: N/A SIZE: N/A. SEVERITY: N/A. TYPE: N/A. WALL MOTION: Normal. LV SIZE: Normal. 55 mL. TID / TCD: None; 0.8 LVEF: Normal. Calculated EF 87%. SUMMARY: Myocardial perfusion imaging study is NORMAL. CONCLUSION: 1. Normal nuclear medicine myocardial perfusion scan. Dictated by: Juan Don M.D. on 06/03/2024 at 16:03 Approved by: Juan Dno M.D. on 06/03/2024 at 16:04
[2024-05-31] MEDS: REGADENOSON 0.4 MG/5 ML SYRINGE IV (10:14)
--- NOTE | 2024-05-31 10:14 | PC.NURSE ---
Nursing Note Cardiac Stress Test Reviewed: Medication, allergies and patient history reviewed. Stress Test: [ x] Patient tolerated stress test well. [ ] Patient unable to tolerate walking on treadmill. Switched to Lexiscan stress test. [x ] No chest pain noted per patient [ ] Chest pain that resolved prior to leaving stress lab. [x ] No dyspnea noted. [ ] Dyspnea that resolved prior to leaving stress lab. [x ] Patient left stress lab asymptomatic and hemodynamically stable. [ ] Patient taken to the Emergency Room due to non-resolving symptoms following stress test. [ ] Patient achieved target heart rate. [ ] Patient unable to achieve target heart rate. [ ] Aminophylline administered as reversal agent to Lexiscan (Regadenoson). [ ] Nitro administered. Nursing Comments: Reviewed with patient on outreach phone call yesterday and as well in person today the process of the testing. Patient is anxious but willing to do the exam. Patient complains of no symptoms, shortness of breath, chest pain or nausea during test. Patient states she is at baseline prior to being taken to the cafeteria following the exam.
== END 2024-05-31 07:55 | disposition home or self-care (01) ==
LOC: NM 07:55
PROVIDERS: PCP Family Medicine; Visit Provider Internal Medicine Interventional Cardiology
DX: R94.31 Abnormal electrocardiogram [ECG] [EKG] (principal); I63.9 Cerebral infarction, unspecified
CPT/HCPCS: 78452; 93017; A9500; J2785

== ENCOUNTER 2024-06-18 07:40 | Outpatient (RCR) | payer MEDICARE, MEDICAID, SELFPAY | END 2024-07-06 23:59 | disposition home or self-care (01) | LOC: HEMC 07:40 | PROVIDERS: Visit Provider Internal Medicine Hematology & Oncology | DX: D47.3 Essential (hemorrhagic) thrombocythemia (principal); D72.829 Elevated white blood cell count, unspecified; F17.210 Nicotine dependence, cigarettes, uncomplicated | CPT/HCPCS: G0463 ==

== ENCOUNTER 2024-07-23 07:25 | Outpatient (RCR) | payer MEDICARE, MEDICAID, SELFPAY ==
[2024-07-23 13:53] LABS: Basophils Percent Auto 0.3 % (0.2-2.0); Eosinophils Absolute Auto 0.2 10^3/uL (0.0-0.7); Hematocrit 41.1 % (36.0-48.0); Hemoglobin 13.6 g/dL (12.0-16.0); Immature Granulocytes Abs Auto 0.01 10^3/uL (0.00-0.03); Immature Granulocytes Pct Auto 0.1 % (0.0-0.5); Lymphocytes Absolute Auto 1.9 10^3/uL (1.2-3.8); Lymphocytes Percent Auto 28.2 % (20.5-60.0); Mean Corpuscular HGB Conc 33.1 g/dL (29.9-35.2); Mean Corpuscular Hemoglobin 33.7 pg (26.7-34.0); Mean Platelet Volume 10.6 fL (9.5-13.5); Monocytes Absolute Auto 0.5 10^3/uL (0.3-0.8); Monocytes Percent Auto 7.1 % (1.7-12.0); Neutrophils Absolute Auto 4.2 10^3/uL (1.4-6.5); Neutrophils Percent Auto 61.3 % (43.0-75.0); Platelet Count 313 10^3/uL (150-450); Red Blood Count 4.03 10^6/uL (4.20-5.40); Red Cell Distribution Width 18.2 % (11.0-15.0); White Blood Count 6.9 10^3/uL (4.0-11.0)
[2024-07-23 14:12] LABS: Alanine Aminotransferase 19 U/L (14-59); Albumin Globulin Ratio 1.2; Albumin Level 3.7 g/dL (3.4-5.0); Alkaline Phosphatase 111 U/L (46-116); Anion Gap 8.8; Aspartate Amino Transferase 16 U/L (15-37); BUN Creatinine Ratio 23.5; Bilirubin Total 0.3 mg/dL (0.2-1.0); Calcium 8.9 mg/dL (8.5-10.1); Carbon Dioxide 29.3 mmol/L (21.0-32.0); Chloride 103 mmol/L (98-107); Estimated GFR (African America >60 (>=60); Estimated GFR (Non-African Ame >60 (>=60); Globulin 3.2 g/dL; Glucose 93 mg/dL (74-106); Potassium 4.1 mmol/L (3.5-5.1); Sodium 137 mmol/L (136-145); Total Protein 6.9 g/dL (6.4-8.2)
[2024-07-23 15:05] LABS: Percent Iron Saturation 16.1 %
== END 2024-08-05 23:59 | disposition home or self-care (01) ==
LOC: HEMC 07:25
PROVIDERS: Visit Provider Internal Medicine Hematology & Oncology
DX: D47.3 Essential (hemorrhagic) thrombocythemia (principal); D72.829 Elevated white blood cell count, unspecified; F17.210 Nicotine dependence, cigarettes, uncomplicated
CPT/HCPCS: 36415; 80053; 82728; 83540; 83550; 85025; G0463

== ENCOUNTER 2024-08-13 07:49 | Outpatient (RCR) | payer MEDICARE, MEDICAID, SELFPAY ==
[2024-08-13 13:30] LABS: Basophils Percent Auto 0.5 % (0.2-2.0); Eosinophils Absolute Auto 0.3 10^3/uL (0.0-0.7); Eosinophils Percent Auto 3.6 % (0.9-7.0); Hematocrit 41.6 % (36.0-48.0); Hemoglobin 14.1 g/dL (12.0-16.0); Immature Granulocytes Abs Auto 0.01 10^3/uL (0.00-0.03); Immature Granulocytes Pct Auto 0.1 % (0.0-0.5); Lymphocytes Absolute Auto 2.6 10^3/uL (1.2-3.8); Mean Corpuscular HGB Conc 33.9 g/dL (29.9-35.2); Mean Corpuscular Hemoglobin 34.9 pg (26.7-34.0); Mean Platelet Volume 10.5 fL (9.5-13.5); Monocytes Absolute Auto 0.5 10^3/uL (0.3-0.8); Monocytes Percent Auto 7.3 % (1.7-12.0); Neutrophils Absolute Auto 3.8 10^3/uL (1.4-6.5); Neutrophils Percent Auto 52.5 % (43.0-75.0); Platelet Count 315 10^3/uL (150-450); Red Blood Count 4.04 10^6/uL (4.20-5.40); Red Cell Distribution Width 16.5 % (11.0-15.0); White Blood Count 7.3 10^3/uL (4.0-11.0)
[2024-08-13 13:45] LABS: Alanine Aminotransferase 23 U/L (14-59); Albumin Globulin Ratio 1.2; Albumin Level 3.9 g/dL (3.4-5.0); Alkaline Phosphatase 78 U/L (46-116); Anion Gap 12.6; Aspartate Amino Transferase 23 U/L (15-37); BUN Creatinine Ratio 20.6; Bilirubin Total 0.5 mg/dL (0.2-1.0); Calcium 9.2 mg/dL (8.5-10.1); Carbon Dioxide 26.3 mmol/L (21.0-32.0); Chloride 101 mmol/L (98-107); Estimated GFR (African America >60 (>=60 mL/min/1.73m^2); Estimated GFR (Non-African Ame 50 (>=60 mL/min/1.73m^2); Globulin 3.3 g/dL; Glucose 107 mg/dL (74-106); Magnesium 1.9 mg/dL (1.8-2.4); Potassium 3.9 mmol/L (3.5-5.1); Sodium 136 mmol/L (136-145); Total Protein 7.2 g/dL (6.4-8.2)
[2024-08-13 14:13] LABS: Percent Iron Saturation 27.3 %
[2024-08-14 04:08] LABS: Vitamin B12 1649 pg/mL (232-1245)
== END 2024-09-05 23:59 | disposition home or self-care (01) ==
LOC: HEMC 07:49
PROVIDERS: Visit Provider Internal Medicine Hematology & Oncology
DX: D47.3 Essential (hemorrhagic) thrombocythemia (principal); D72.829 Elevated white blood cell count, unspecified; F17.200 Nicotine dependence, unspecified, uncomplicated; Z86.73 Personal history of transient ischemic attack (TIA), and cerebral infarction without residual deficits
CPT/HCPCS: 36415; 80053; 82607; 82728; 82746; 83540; 83550; 83735; 85025; G0463

== ENCOUNTER 2024-09-03 13:25 | Outpatient (OUT) | payer MEDICARE, MEDICAID, SELFPAY ==
--- OUTSIDE RECORDS SUMMARY | 2024-09-03 13:38 | XMS_ITS | CCD ---
Author Organization [facility] Care Team Providers Care Medical Or Surgical Instrument Maker Name Role Phone Olga Schwartz Unavailable Fernando Silverio Unavailable EFREN, DR OLGA Rodriguez Admitting Unavailable SCHWARTZ, DR OLGA Rodriguez Attending Unavailable SCHWARTZ, DR OGLA Rodriguez Primary Care Unavailable WEST, DR CHAITANYA [...] Unavailable SCHWARTZ, DR OLGA Rodriguez Consulting [facility] Unavailable SCHWARTZ, DR OLGA Rodriguez Admitting Unavailable SCHWARTZ, DR OLGA Rodriguez Attending Unavailable SCHWARTZ, DR OLGA Rodriguez Primary Care Unavailable WEST, DR CHAITANYA King Consulting Unavailable SCHWARTZ, DR OLGA Rodriguez Consulting Unavailable JOSTIN, ELOINA A Referring Unavailable SHANNAN, SAIRA W Primary Care Unavailable SHANNAN, SAIRA W Primary Care Unavailable SHANNAN, SAIRA W Referring Unavailable SHANNAN, SAIRA W Primary Care Unavailable SchwartzOlga Attending Unavailable SchwartzOlga Primary Care Unavailable SchwartzOlga Admitting Unavailable Schwartz, Olga Rodriguez Admitting Unavailable SchwartzOlga Attending Unavailable Olga Schwartz Primary Care Unavailable Neto Hooper Attending UnavailDO Dawit Fountain Referring Unava ilJARON Gibson Attending Unavailable DAWIT HOWARD Attending Unavailable NESTOR IVERSON Attending Unavailable KEIRA CHURCH Attending Unavailniurka Schwartz MD, Olga Primary Care Provider Allergies Allergy Classification Reported Allergen(s) Allergy Type Date of Onset Reaction(s) Facility (15 sources) nickel; Translations: [NICKEL] Drug Allergy 02-13-20 Unknown, [facility] (13 sources) Penicillin Drug Allergy Unknown [facility] Other (19 sources) PHENobarbital; Translations: [PHENOBARBITAL] Drug Allergy 04-07-20 Rash, Unknown [facility] (17 sources) Phenytoin; Translations: [PHENYTOIN] Drug Allergy 04-07-20 Unknown [facility] (15 sources) Zinc; Translations: [ZINC] Drug Allergy 02-13-20 Unknown, [facility] (1 source) benzoin resin Drug Allergy 09-25-20 14 [facility] (1 source) Leucine Drug Allergy [facility] (5 sources) Penicillins; Translations: [PENICILLINS] Drug allergy (disorder) 09-25-20 14 [facility]ository (1 source) Phenytoin Drug Allergy 09-25-20 14 [facility] (8 sources) Allergies Reconciled Propensity to adverse reactions Unknown [facility] Other (8 sources) Penicillin G Benzathine & Proc Drug allergy Unknown [facility] Other (8 sources) PHENobarbital *HYPNOTICS/SEDAT ANN/SLEEP DISORDER Propensity to adverse reactions Unknown [facility] Other (8 sources) patient allergy list reviewed by nurse or physicia Propensity to adverse reactions 03-29-20 Comment:Done [facility] Other (3 sources) Penicillin G Benzathine Allergy to substance 02-13-20 [facility] (1 source) PHENobarbital *HYPNOTICS/SEDAT Allergy to substance 02-13-20 [facility] (4 sources) Phenytoin; Translations: [PHENYTOIN SODIUM EXTENDED] Drug Allergy 04-07-20 Rash [facility] (2 sources) nickel sulfate Drug Allergy 03-21-20 Unknown [facility] (2 sources) Penicillins Drug Intolerance 04-07-20 Rash, Unknown [facility] (2 sources) Zinc Acetate Drug Allergy 03-21-20 [facility] Medications Current Medications Medication Drug Class(es) Dates Sig (Normalized) Sig (Original) acetaminophen 325 mg / oxyCODONE hydrochloride 7.5 mg oral tablet (19 sources) Opioid Agonist Start: 08-12-2024 take 1 tablet by mouth in the morning oxyCODONE-acetami nophen (Percocet) 7.5-325 MG tablet Indications: Lumbar back pain Take 1 tablet by mouth in the morning and 1 tablet before bedtime. 60 tablet 08/12/2024 Active Start: 12-22-2023 End: 01-22-2024 take 1 tablet by mouth three times daily Oxycodone-Acetaminophen Active 1 TAB PO Three times daily January 22, 2024 Start: 10-24-2023 take 1 tablet by pastor th three times daily as needed Percocet 7.5-325 MG 1 tablet Orally thre e times daily, as needed for 30 days Oct, Active Start: 09-25-2023 take 1 tablet by pastor th three times daily as needed Percocet 7.5-325 MG 1 tablet Orally thre e times daily, as needed for 30 days Sep, Active Start: 08-23-2023 take 1 tablet by pastor th three times daily as needed Percocet 7.5-325 MG 1 tablet Orally thre e times daily, as needed for 30 days Aug, Active Start: 07-24-2023 take 1 tablet by pastor th three times daily as needed Percocet 7.5-325 MG 1 tablet Orally thre e times daily, as needed for 30 days Jul, Active Start: 06-24-2023 take 1 tablet by pastor th three times daily as needed Percocet 7.5-325 MG 1 tablet Orally thre e times daily, as needed for 30 days Jun, Active Start: 05-26-2023 take 1 tablet by pastor th three times daily as needed Percocet 7.5-325 MG 1 tablet Orally thre e times daily, as needed for 30 days May, Active Start: 04-28-2023 End: 08-06-2024 Start: 02-24-2023 take 1 tablet by pastor th three times daily as needed Percocet 7.5-325 MG 1 tablet Orally thre e times daily, as needed for 30 days Feb, Active Start: 01-24-2023 take 1 tablet by pastor th three times daily as needed Percocet 7.5-325 MG 1 tablet Orally thre e times daily, as needed for 30 days Jan, Active ALPRAZolam 1 mg oral tablet (16 sources) Benzodiazepine Start: 12-22-2023 End: 01-22-2024 take 1 mg by mouth twice daily Alprazolam Active 1 MG PO Twice daily 60 30 January 22, 2024 3:55pm Start: 10-24-2023 ALPRAZolam 1 M G TAKE 1 TABLET BY MOUTH TWICE DAILY NEEDED FOR 30 DAYS for 30 Oct, Active Start: 09-25-2023 ALPRAZolam 1 M G TAKE 1 TABLET BY MOUTH TWICE DAILY NEEDED FOR 30 DAYS for 30 Sep, Active Start: 08-23-2023 ALPRAZolam 1 M G [...] FOR 30 DAYS for 30 Jan, Active aspirin 325 mg oral tablet (3 sources) Platelet Aggregation Inhibitor, Nonsteroidal Anti-inflammatory Drug Start: 08-12-2024 take 1 tablet by mouth once daily aspirin 325 MG EC tablet Indications: Cerebrovascular accident (CVA), unspecified mechanism (CMS/HCC) Take 1 tablet (325 mg) by mouth Daily 30 tablet 1 08/12/2024 Active Start: 03-07-2024 End: 08-06-2024 take 1 tablet by mouth once daily aspirin 325 MG EC tablet Take 325 mg by mouth Daily 03/07/2024 08/06/2024 Discontinued (Reorder) atorvastatin 80 mg oral tablet (3 sources) HMG-CoA Reductase Inhibitor Start: 08-12-2024 End: 08-12-2025 take 1 tablet by mouth once daily atorvastatin (Lipitor) 80 MG tablet Indications: Hyperlipidemia, unspecified hyperlipidemia type (CMS/HCC) Take 1 tablet (80 mg) by mouth Daily 30 tablet 2 08/12/2024 08/12/2025 Active Start: 03-25-2024 End: 08-06-2024 take 1 tablet by mouth once daily atorvastatin (Lipitor) 80 MG tablet Indications: Hyperlipidemia, unspecified hyperlipidemia type (CMS/HCC) Take 1 tablet (80 mg) by mouth Daily 30 tablet 11 03/25/2024 08/06/2024 Discontinued (Reorder) Ciprofloxacin (5 sources) Quinolone Antimicrobial Ciprofloxacin Active gabapentin 300 mg oral capsule (17 sources) Anti-epileptic Agent Start: 08-12-20 take 1 capsule by mouth once daily gabapentin (Neurontin) 300 MG capsule Indications: Neuropathic Pain Take 1 capsule (300 mg) by mouth Daily 30 capsule 2 08/12/2024 Active Start: 02-09-2024 take 300 mg by mouth three times daily Gabapentin Active 300 MG PO Three times daily February 09, 2024 12:00am Start: 11-08-2022 take 1 capsule by mo [facility] three times daily Gabapentin 300 MG 1 capsule Orally 3 times per day for 30 day(s) Nov, Active End: 08-06-2024 take 1 capsule by mouth once daily gabapentin (Neurontin) 300 MG capsule Indications: Neuropathic Pain Take 300 mg by mouth Daily 08/06/2024 Discontinued (Reorder) hydroxyurea 500 mg oral capsule (2 sources) Antimetabolite Start: 04-23-2024 take 1 capsule by mouth once daily hydroxyurea (Hydrea) 500 MG capsule Take 500 mg by mouth Daily. 04/23/2024 Active Hyoscyamine (5 sources) Hyoscyamine Acti ve latanoprost 0.05 mg/ml ophthalmic solution (2 sources) Prostaglandin Analog Start: 05-17-2024 take 1 drop(s) into the eye(s) once daily at bedtime latanoprost (Xalatan) 0.005 % ophthalmic solution INSTILL 1 DROP IN EACH EYE EVERY DAY AT BEDTIME 05/17/2024 Active levETIRAcetam 500 mg oral tablet (17 sources) Start: 01-15-2024 take 1 tablet by mouth twice daily Levetiracetam Active 0 .ROUTE .COMPLEX 180 January 15, 2024 1:09pm TAKE 1 TABLET BY MOUTH TWICE A DAY Start: 01-15-2024 End: 01-15-2024 take 1 tablet by mouth in the morning levETIRAcetam (Keppra) 500 MG tablet Take 1 tablet by mouth in the morning and 1 tablet before bedtime. 01/15/2024 Active take 1 tablet by pastor th twice daily levETIRAcetam 500 MG TAKE 1 TABLET BY MOUTH TWICE A DAY for 90 Active metoprolol tartrate 25 mg oral tablet (17 sources) beta-Adrenergic Tereso Start: 08-12-2024 take 1 tablet by mouth in the morning metoprolol tartrate (Lopressor) 25 MG tablet Indications: Cerebrovascular accident (CVA), unspecified mechanism (CMS/HCC) Take 1 tablet (25 mg) by mouth in the morning and 1 tablet (25 mg) before bedtime. 60 tablet 1 08/12/2024 Active Start: 05-05-2024 End: 08-06-2024 take 1 tablet by mouth in the morning metoprolol tartrate (Lopressor) 25 MG tablet Take 25 mg by mouth in the morning and 25 mg before bedtime. 05/05/2024 08/06/2024 Discontinued (Reorder) Start: 02-09-2024 take 25 mg by mouth twice lev y Metoprolol Tartrate Active 25 MG PO Twice daily February 09, 2024 12:00am take 1 tablet by pastor th twice daily Metoprolol Tartrate 25 MG TAKE 1 TABLET [...] TIMES A DAY NEEDED for 90 Active rOPINIRole 0.5 mg oral tablet (10 sources) Nonergot Dopamine Agonist Start: 08-12-2024 take 1 tablet by mouth once daily rOPINIRole (Requip) 0.5 MG tablet Indications: Restless leg syndrome Take 1 tablet (0.5 mg) by mouth 1 (one) time each day at the same time 30 tablet 08/12/2024 Active Start: 01-19-2024 End: 02-13-2024 take 1 tablet by mouth once daily at bedtime Ropinirole Discontinued 0 .ROUTE .COMPLEX January 19, 2024 8:33am February 13, 2024 11:34am TAKE 1 TABLET BY MOUTH 1 TO 3 HOURS BEFORE BEDTIME DAILY 90 Start: 01-19-2024 End: 08-06-2024 take 1 tablet by mouth once daily at bedtime Ropinirole Discontinued 0.5 MG PO January 19, 2024 12:00am January 19, 2024 8:33am TAKE 1 TABLET BY MOUTH 1 TO 3 HOURS BEFORE BEDTIME DAILY simvastatin 40 mg oral tablet (19 sources) HMG-CoA Reductase Inhibitor Start: 01-31-2024 take 1 tablet by mouth once daily in the evening Simvastatin Active 0 .ROUTE .COMPLEX January 31, 2024 8:43am TAKE 1 TABLET [...] MOUTH TWICE A DAY for 90 Active 24 hr venlafaxine 37.5 [...] 2024 8:55am take 1 capsule by mo uth once daily Venlafaxine HCl ER 37.5 MG TAKE 1 CAPSULE BY MOUTH EVERY DAY for 90 Active Problems Active Problems Problem Classification Problem Date Documented Da te Episodic/Chronic Abdominal pain (20 sources) Abdominal pain; Translations: [Unspecified abdominal pain] Onset: 8 Episodic Acute cerebrovascular disease (8 sources) Cerebrovascular accident; Translations: [Cerebral infarction, unspecified] Onset: 4 02-13-2024 Chronic Acute cerebrovascular disease (1 source) Acute cerebrovascular disease Onset: 4 Anxiety disorders (20 sources) Mixed anxiety and depressive disorder; Translations: [Anxiety disorder, unspecified] Onset: 4 Chronic Cardiac dysrhythmias (3 sources) Bradycardia, unspecified; Translations: [Bradycardia, unspecified] Onset: 4 Episodic Chronic obstructive pulmonary disease and bronchiectasis (20 sources) Bronchitis; Translations: [Bronchitis, not specified as acute or chronic] Episodic Disorders of lipid metabolism (20 sources) Hyperlipidemia; Translations: [Other hyperlipidemia] Onset: 3 Chronic Diverticulosis and diverticulitis (8 sources) Diverticulitis of colon; Translations: [Diverticulitis of intestine, part unspecified, without perforation or abscess without bleeding] Onset: 8 Chronic Epilepsy; convulsions (9 sources) Epilepsy; Translations: [Epilepsy, unspecified, not intractable, without status epilepticus] Onset: 8 02-09-2024 Chronic Esophageal disorders (2 sources) Gastroesophageal reflux disease; Translations: [Gastro-esophageal reflux disease without esophagitis] Onset: 4 07-24-2024 Chronic Essential hypertension (20 sources) Essential hypertension; Translations: [Essential (primary) hypertension] Onset: 3 Chronic Gastrointestinal hemorrhage (1 source) Melena Episodic Glaucoma (2 sources) Glaucoma; Translations: [Unspecified glaucoma] Onset: 4 07-24-2024 Chronic Headache; including migraine (20 sources) Migraine; Translations: [Migraine, unspecified, not intractable, without status migrainosus] Onset: 4 02-09-2024 Chronic Headache; including migraine (8 sources) Headache; Translations: [Headache, unspecified] Episodic Malaise and fatigue (1 source) Other fatigue; Translations: [Other fatigue] Onset: 4 Episodic Mood disorders (20 sources) Major depression, single episode; Translations: [Major depressive disorder, single episode, unspecified] Onset: 4 02-09-2024 Chronic Osteoarthritis (20 sources) Osteoarthritis of left hip joint; Translations: [Unilateral primary osteoarthritis, left hip] Onset: 8 Chronic Osteoporosis (11 sources) Primary osteoporosis; Translations: [Age-related osteoporosis without current pathological fracture] Onset: 8 02-09-2024 Chronic Other and ill-defined cerebrovascular disease (1 source) Other cerebrovascular vasospasm and vasoconstriction; Translations: [Other cerebrovascular vasospasm and vasoconstriction] Onset: 4 Chronic Other circulatory disease (8 sources) Elevated blood-pressure reading without diagnosis of hypertension; Translations: [Elevated blood-pressure reading, without diagnosis of hypertension] Episodic Other connective tissue disease (2 sources) Tear of right rotator cuff; Translations: [Unspecified rotator cuff tear or rupture of right shoulder, not specified as traumatic] Onset: 4 07-24-2024 Episodic Other hereditary and degenerative nervous system conditions (20 sources) Restless legs; Translations: [Restless legs syndrome] Onset: 4 02-09-2024 Chronic Other nervous system disorders (12 sources) Carpal tunnel syndrome of left wrist; Translations: [Carpal tunnel syndrome, left upper limb] Onset: 4 02-09-2024 Chronic Other nervous system disorders (1 source) Carpal tunnel syndrome, left upper limb Chronic Other nervous system disorders (2 sources) Aphasia; Translations: [Aphasia] Onset: 4 03-21-2024 Chronic Other nervous system disorders (2 sources) Chronic pain; Translations: [Other chronic pain] Onset: 4 07-24-2024 Chronic Other non-traumatic joint disorders (2 sources) Pain in left hip; Translations: [PAIN IN LEFT HIP] Onset: 3 Episodic Other non-traumatic joint disorders (8 sources) Pain in right hip joint; Translations: [Pain in right hip] Episodic Other non-traumatic joint disorders (8 sources) Arthralgia of the pelvic region and thigh; Translations: [Pain in left hip] Episodic Residual codes; unclassified (13 sources) Acute insomnia; Translations: [Insomnia, unspecified] Episodic Residual codes; unclassified (8 sources) Body mass index 20-24 - normal; Translations: [Body mass index (BMI) 23.0-23.9, adult] Episodic Residual codes; unclassified (1 source) Pain, unspecified; Translations: [Pain, unspecified] Onset: 4 Episodic Spondylosis; intervertebral disc disorders; other back problems (2 sources) Other intervertebral disc degeneration, lumbar region; Translations: [Spondylosis without myelopathy or radiculopathy, lumbar region] Onset: 2 Chronic Substance-related disorders (15 sources) Nicotine dependence, cigarettes, uncomplicated; Translations: [Tobacco user] Onset: 2 Chronic Unclassified (8 sources) Exposure to acute respiratory syndrome coronavirus 2; Translations: [Contact with and (suspected) exposure to COVID-19] Urinary tract infections (16 sources) Urinary tract infectious disease; Translations: [Urinary tract infection, site not specified] Onset: 8 Episodic Past or Other Problems Problem Classification Problem Date Documented Da te Episodic/Chronic Allergic reactions (2 sources) Eczema; Translations: [Dermatitis, unspecified] Onset: 04-02-2024 07-24-2024 Episodic Diabetes mellitus without complication (8 sources) Abnormal glucose level; Translations: [Other abnormal glucose] Onset: 10-23-2018 Episodic Epilepsy; convulsions (4 sources) Seizure; Translations: [Unspecified convulsions] Onset: 03-21-2024 02-13-2024 Episodic Genitourinary symptoms and ill-defined conditions (8 sources) Dysuria; Translations: [Dysuria] Onset: 10-23-2018 Episodic Headache; including migraine (13 sources) Headache; including migraine; Translations: [Left temporal headache] Inflammatory diseases of female pelvic organs (8 sources) Acute vaginitis; Translations: [Acute vaginitis] Onset: 11-22-2018 Episodic Mood disorders (2 sources) Mood disorders Onset: 07-24-2024 07-24-2024 Nutritional deficiencies (20 sources) Vitamin B12 deficiency (non anemic); Translations: [Deficiency of other specified B group vitamins] Onset: 02-17-2023 Episodic Other connective tissue disease (2 sources) Primary fibromyalgia syndrome; Translations: [Fibromyalgia] Onset: 04-02-2024 07-24-2024 Episodic Other non-traumatic joint disorders (4 sources) Pain in right hip; Translations: [PAIN IN RIGHT HIP] Onset: 10-18-2022 Episodic Other non-traumatic joint disorders (8 sources) Shoulder joint pain; Translations: [Pain in right shoulder] Onset: 09-03-2018 Episodic Pancreatic disorders (not diabetes) (2 sources) Drug-induced acute pancreatitis; Translations: [Drug induced acute pancreatitis without necrosis or infection] Onset: 04-08-2021 07-24-2024 Episodic Residual codes; unclassified (11 sources) Insomnia; Translations: [Insomnia, unspecified] Onset: 04-02-2024 02-09-2024 Episodic Spondylosis; intervertebral disc disorders; other back problems (20 sources) Sciatica; Translations: [Sciatica, right side] Onset: 10-22-2022 12-22-2023 Episodic Results Test Name Value Interpretation Reference Range Facility ALL CBC WITH AUTO DIFFon BASOPHILS ABSOLUTE AUTO 0.0 N [facility] Basophils/100 WBC (Bld) 0.5 % 0.2 - 2.0 % [facility] Eosinophils/100 WBC (Bld) 3.6 % 0.9 - 7.0 % [facility] Erythrocyte distribution width (RBC) [Ratio] 16.5 % High 11.0 - 15.0 % [facility] Hematocrit (Bld) [Volume fraction] 41.6 % 36.0 - 48.0 % [facility] Hemoglobin (Bld) [Mass/Vol] 14.1 g/dL 12.0 - 16.0 g/dL [facility] IMMATURE GRANULOCYTES ABS AUTO 0.01 [facility] Immature granulocytes/100 WBC (Bld) 0.1 % 0.0 - 0.5 % [facility] Interpretation and review of laboratory results Abnormal [facility] LYMPHOCYTES ABSOLUTE AUTO 2.6 [facility] Lymphocytes/100 WBC (Bld) 36.0 % 20.5 - 60. 0 % [facility] MCH (RBC) [Entitic mass] 34.9 pg High 26. 7 - 34.0 pg [facility] MCHC (RBC) [Mass/Vol] 33.9 g/dL 29.9 - 35.2 g/dL [facility] MCV (RBC) [Entitic vol] 103.0 fL High 81.0 - 99.0 fL [facility] MONOCYTES ABSOLUTE AUTO 0.5 [facility] Monocytes/100 WBC (Bld) 7.3 % 1.7 - 12.0 % [facility] NEUTROPHILS ABSOLUTE AUTO 3.8 [facility] Neutrophils/100 WBC (Bld) 52.5 % 43.0 - 75. 0 % [facility] Platelet mean volume (Bld) [Entitic vol] 10.5 fL 9.5 - 13.5 fL [facility] TBH EO # 0.3 [facility] PLT 315 [facility] RBC 4.04 Low [facility] WBC 7.3 [facility] Office Visiton 04-02-2024 Follow-up visit [id number] Lesly Steve 1950 F Date Provider Department Center 04/02/2024 271-JARON JOHNSON TALA [place] Family History Family history unknown: Yes Level of Service:74256 UT OFFICE/OUTPATIENT NEW MODERATE MDM 45 MINUTES Normal [facility] Orders Onlyon 03-29-2024 Orders Only [id number] Lesly Steve 1950 F Date Provider Department Center 03/29/2024 [id number], HISTORICAL CARD Samantha Hos No family history on file Normal [facility] Referrals Officeon Referrals Office [id number] Normal [facility] Urine Cultureon 03-19-2024 Bacteria identified Cx Nom (U) <9,000 colonies/ml mixed bacterial skin contaminants 2 Days PERFORMED BY: [place] [id number] [place] [address] PATHOLOGIST ENGRAVER PICTURE AYANA TAY M.D. Normal [facility] Comment on above: Performed By: #### C UU #### [facility] [address] [place] [address] Basophils Auto (Bld) [#/Vol] on 02-09-2024 Basophils (Bld) [#/Vol] 0.0 10 3/uL 0.0-0.1 [facility] Basophils/100 WBC Auto (Bld) on 02-09-2024 Basophils/100 WBC (Bld) 0.3 % 0.2-2.0 [facility] Cholesterol in LDL Calc [Mas s/Vol]on 02-09-2024 Cholesterol in LDL [Mass/Vol] 141.0 mg/dL [facility] Comment on above: <100 mg/dl [id number] 0-129 mg/dl NEAR OR ABOVE [id number] mg/dl BORDERLINE [id number] mg/dl HIGH>190 mg/dl VERY HIGH Cholesterol in VLDL Calc [Ma ss/Vol]on 02-09-2024 Cholesterol in VLDL [Mass/Vol] 25.2 mg/dL [facility] Eosinophils/100 WBC Auto (Bl d)on 02-09-2024 Eosinophils/100 WBC (Bld) 2.7 % 0.9-7.0 [facility] Erythrocyte distribution wid th Auto (RBC) [Ratio]on 02-09-2024 Erythrocyte distribution width (RBC) [Ratio] 14.0 % 11.0-15.0 [facility] Estimated glomerular filtrat ion rate (GFR) non- Americanon 02-09-2024 GFR/1.73 sq M.predicted among non-blacks MDRD (S/P/Bld) [Vol rate/Area] 59 mL/min/{1.73_m2} >=60 [facility] Hematocrit Auto (Bld) [Volum e fraction]on 02-09-2024 Hematocrit (Bld) [Volume fraction] 45.5 % 36.0-48.0 [facility] Hemoglobin [Mass/volume] in Bloodon 02-09-2024 Hemoglobin (Bld) [Mass/Vol] 14.6 g/dL 12.0-16.0 [facility] Laboratory - Chemistry and C hemistry - challengeon 02-09-2024 Calcium [Mass/Vol] 9.6 mg/dL 8.5-10.1 [facility] Chloride [Moles/Vol] 103 mmol/L 98-107 [facility] Cholesterol [Mass/Vol] 200 mg/dL <=200 [facility] Cholesterol in HDL [Mass/Vol] 34 mg/dL 40-60 [facility] Comment on above: > or =60 mg/dl - LOW CARDIOVASCULAR RISK<40 mg/dl - HIGH CARDIOVASCULAR RISK CO2 [Moles/Vol] 26.1 mmol/L 21.0-32.0 [facility] Creatinine [Mass/Vol] 0.93 mg/dL 0.55-1.02 [facility] GFR/1.73 sq M.predicted MDRD (S/P/Bld) [Vol rate/Area] mL/min/{1.73_m2} >=60 [facility] Glucose [Mass/Vol] 116 mg/dL 74-106 [facility] Potassium [Moles/Vol] 4.2 mmol/L 3.5-5.1 [facility] Sodium [Moles/Vol] 139 mmol/L 136-145 [facility] Triglyceride [Mass/Vol] 126 mg/dL <=150 [facility] Urea nitrogen [Mass/Vol] 22.0 mg/dL 7.0-18.0 [facility] Urea nitrogen/Creatinine [Mass ratio] 23.7 mg/mg [facility] Laboratory - Hematology and Cell countson 02-09-2024 Immature granulocytes/100 WBC (Bld) 0.3 % 0.0-0.5 [facility] Leukocytes [#/volume] correc dinora for nucleated erythrocytes in Blood by Automated counon 02-09-2024 WBC corrected for nucl RBC Auto (Bld) [#/Vol] 12.2 10 3/uL 4.0-11.0 [facility] Lymphocytes Auto (Bld) [#/Vo l]on 02-09-2024 Lymphocytes (Bld) [#/Vol] 2.0 10 3/uL 1.2-3.8 [facility] Lymphocytes/100 WBC Auto (Bl d)on 04-05-2024 Lymphocytes/100 WBC (Bld) 16.4 % 20.5-60.0 [facility] MCH Auto (RBC) [Entitic mass ]on 02-09-2024 MCH (RBC) [Entitic mass] 29.4 pg 26.7-34.0 [facility] MCHC Auto (RBC) [Mass/Vol]on 02-09-2024 MCHC (RBC) [Mass/Vol] 32.1 g/dL 29.9-35.2 [facility] MCV Auto (RBC) [Entitic vol] on 02-09-2024 MCV (RBC) [Entitic vol] 91.7 fL 81.0-99.0 [facility] Monocytes Auto (Bld) [#/Vol] on 02-09-2024 Monocytes (Bld) [#/Vol] 0.9 10 3/uL 0.3-0.8 [facility] Monocytes/100 WBC Auto (Bld) on 02-09-2024 Monocytes/100 WBC (Bld) 7.7 % 1.7-12.0 [facility] Neutrophils Auto (Bld) [#/Vo l]on 02-09-2024 Neutrophils (Bld) [#/Vol] 8.9 10 3/uL 1.4-6.5 [facility] Neutrophils/100 WBC Auto (Bl d)on 02-09-2024 Neutrophils/100 WBC (Bld) 72.6 % 43.0-75.0 [facility] No Panel Informationon 02-08 Eosinophils # (Auto) 0.3 10 3/uL 0.0-0.7 [facility] Immature Granulocyte # (Auto) 0.04 10 3/uL 0.00-0.03 [facility] Platelet mean volume Auto (B ld) [Entitic vol]on 02-09-2024 Platelet mean volume (Bld) [Entitic vol] 10.9 fL 9.5-13.5 [facility] Platelets Auto (Bld) [#/Vol] on 02-09-2024 Platelets (Bld) [#/Vol] 546 10 3/uL 150-450 [facility] RBC Auto (Bld) [#/Vol]on RBC (Bld) [#/Vol] 4.96 10 6/uL 4.20-5.40 [facility] Serum or plasma anion gap de terminationon 02-09-2024 Anion gap [Moles/Vol] 14.1 mmol/[facility] or plasma total choles terol/high density lipoprotein (HDL) cholesterol mass maury 02-09-2024 Cholesterol.total/Cholest janay in HDL [Mass ratio] 5.9 {ratio} [facility] Comment on above: 3.3 - 4.4 LOW RISK4. 4 - 7.1 AVERAGE RISK7.1 - 11.0 MODERATE RISK>11.0 HIGH RISK Automated epithelial cells c ount in urine sediment (number/area)on 02-08-2024 Epithelial cells Auto (Urine sed) [#/Area] MODERATE #/LPF NONE/RARE [facility] Automated leukocytes count i n urine sediment (number/area)on 02-08-2024 WBC Auto (Urine sed) [#/Area] 0-2 #/HPF 0-2 [facility] Automated urine specific gra vity by refractometryon 02-08-2024 Specific gravity Refractometry automated (U) [Rel density] 1.025 1.005-1.025 [facility] Basophils Auto (Bld) [#/Vol] on 02-08-2024 Basophils (Bld) [#/Vol] 0.1 10 3/uL 0.0-0.1 [facility] Basophils/100 WBC Auto (Bld) on 02-08-2024 Basophils/100 WBC (Bld) 0.4 % 0.2-2.0 [facility] Bilirubin Auto test strip (U ) [Mass/Vol]on 02-08-2024 Bilirubin (U) [Mass/Vol] Negative NEGATIVE [facility] Casts typing in urine sedime nt by light microscopyon 02-08-2024 Casts LM Nom (Urine sed) NONE SEEN #/LPF NONE S EEN [facility] Color Auto (U)on 02-08-2024 Color (U) YELLOW YELLOW [facility] Eosinophils/100 WBC Auto (Bl d)on 02-08-2024 Eosinophils/100 WBC (Bld) 1.9 % 0.9-7.0 [facility] Erythrocyte distribution wid th Auto (RBC) [Ratio]on 02-08-2024 Erythrocyte distribution width (RBC) [Ratio] 13.9 % 11.0-15.0 [facility] Estimated glomerular filtrat ion rate (GFR) non- Americanon 02-08-2024 GFR/1.73 sq M.predicted among non-blacks MDRD (S/P/Bld) [Vol rate/Area] 51 mL/min/{1.73_m2} >=60 [facility] Globulin Calc (S) [Mass/Vol] on 02-08-2024 Globulin (S) [Mass/Vol] 3.7 g/dL [facility] Hematocrit Auto (Bld) [Volum e fraction]on 02-08-2024 Hematocrit (Bld) [Volume fraction] 48.8 % 36.0-48.0 [facility] Hemoglobin [Mass/volume] in Bloodon 02-08-2024 Hemoglobin (Bld) [Mass/Vol] 15.8 g/dL 12.0-16.0 [facility] INR in Platelet poor plasma by Coagulation assayon 02-08-2024 INR Coag (PPP) [Relative time] 1.05 {INR} [facility] Comment on above: DESIRED INR:2.0-3.0 CONDITIONS NOT LISTED BELOW2.5-3.5 FOR PROSTHETIC HEART VALVE REPLACEMENT2.5-3.5 RECURRENT THROMBOSIS Ketones Auto test strip (U) [Mass/Vol]on 02-08-2024 Ketones (U) [Mass/Vol] Negative NEGATIVE [facility] - Chemistry and C hemistry - challengeon 02-08-2024 Albumin [Mass/Vol] 4.0 g/dL 3.4-5.0 [facility] ALP [Catalytic activity/Vol] 80 U/L 46-116 [facility] ALT [Catalytic activity/Vol] 25 U/L 14-59 [facility] AST [Catalytic activity/Vol] 31 U/L 15-37 [facility] Bilirubin [Mass/Vol] 0.4 mg/dL 0.2-1.0 [facility] Calcium [Mass/Vol] 9.5 mg/dL 8.5-10.1 [facility] Chloride [Moles/Vol] 100 mmol/L 98-107 [facility] CO2 [Moles/Vol] 28.0 mmol/L 21.0-32.0 [facility] Creatinine [Mass/Vol] 1.06 mg/dL 0.55-1.02 [facility] GFR/1.73 sq M.predicted MDRD (S/P/Bld) [Vol rate/Area] mL/min/{1.73_m2} >=60 [facility] Glucose [Mass/Vol] 105 mg/dL 74-106 [facility] Potassium [Moles/Vol] 3.7 mmol/L 3.5-5.1 [facility] Protein [Mass/Vol] 7.7 g/dL 6.4-8.2 [facility] Sodium [Moles/Vol] 137 mmol/L 136-145 [facility] Urea nitrogen [Mass/Vol] 19.0 mg/dL 7.0-18.0 [facility] Urea nitrogen/Creatinine [Mass ratio] 17.9 mg/mg [facility] Laboratory - Hematology and Cell countson 02-08-2024 Immature granulocytes/100 WBC (Bld) 0.2 % 0.0-0.5 [facility] Laboratory - Microbiology an d Antimicrobial susceptibilityOrdered By: Olga Schwartz on 02-08-2024 Bacteria identified Cx Nom (U) [facility] Leukocytes [#/volume] correc dinora for nucleated erythrocytes in Blood by Automated counon 02-08-2024 WBC corrected for nucl RBC Auto (Bld) [#/Vol] 13.4 10 3/uL 4.0-11.0 [facility] Lymphocytes Auto (Bld) [#/Vo l]on 02-08-2024 Lymphocytes (Bld) [#/Vol] 2.7 10 3/uL 1.2-3.8 [facility] Lymphocytes/100 WBC Auto (Bl d)on 02-08-2024 Lymphocytes/100 WBC (Bld) 20.3 % 20.5-60.0 [facility] MCH Auto (RBC) [Entitic mass ]on 02-08-2024 MCH (RBC) [Entitic mass] 30.2 pg 26.7-34.0 [facility] MCHC Auto (RBC) [Mass/Vol]on 02-08-2024 MCHC (RBC) [Mass/Vol] 32.4 g/dL 29.9-35.2 [facility] MCV Auto (RBC) [Entitic vol] on 02-08-2024 MCV (RBC) [Entitic vol] 93.1 fL 81.0-99.0 [facility] Monocytes Auto (Bld) [#/Vol] on 02-08-2024 Monocytes (Bld) [#/Vol] 1.1 10 3/uL 0.3-0.8 [facility] Monocytes/100 WBC Auto (Bld) on 02-08-2024 Monocytes/100 WBC (Bld) 8.1 % 1.7-12.0 [facility] Mucus LM Ql (Urine sed)on Mucus Ql (Urine sed) TRACE NONE SEEN [facility] Neutrophils Auto (Bld) [#/Vo l]on 02-08-2024 Neutrophils (Bld) [#/Vol] 9.3 10 3/uL 1.4-6.5 [facility] Neutrophils/100 WBC Auto (Bl d)on 02-08-2024 Neutrophils/100 WBC (Bld) 69.1 % 43.0-75.0 [facility] No Panel Informationon 02-07 Urine Culture Reflexed YES [facility] Urine Microscopic Review YES [facility] Eosinophils # (Auto) 0.3 10 3/uL 0.0-0.7 [facility] Immature Granulocyte # (Auto) 0.03 10 3/uL 0.00-0.03 [facility] Platelet mean volume Auto (B ld) [Entitic vol]on 02-08-2024 Platelet mean volume (Bld) [Entitic vol] 10.5 fL 9.5-13.5 [facility] Platelets Auto (Bld) [#/Vol] on 02-08-2024 Platelets (Bld) [#/Vol] 585 10 3/uL 150-450 [facility] Protein Auto test strip (U) [Mass/Vol]on 02-08-2024 Protein (U) [Mass/Vol] TRACE mg/dL NEG/TRACE [facility] Prothrombin time (PT)on PT Coag (PPP) [Time] 11.1 s 9.0-11.6 [facility] RBC Auto (Bld) [#/Vol]on RBC (Bld) [#/Vol] 5.24 10 6/uL 4.20-5.40 [facility] Serum or plasma albumin/glob ulin mass ratioon 02-08-2024 Albumin/Globulin [Mass ratio] 1.1 {ratio} [facility] Serum or plasma anion gap de terminationon 02-08-2024 Anion gap [Moles/Vol] 12.7 mmol/L [facility] Specific gravity Auto test s trip (U) [Rel density]on 02-08-2024 Specific gravity (U) [Rel density] CLEAR CLEAR [facility] Urine bacteria detection by automated methodon 02-08-2024 Bacteria Auto Ql (U) MODERATE #/HPF NONE SEEN [facility] Urine glucose measurement by test strip (mass/volume)on 02-08-2024 Glucose Test strip (U) [Mass/Vol] Negative NEGATIVE [facility] Urine hemoglobin detection b y automated test stripon 02-08-2024 Hemoglobin Auto test strip Ql (U) Negative NEGATIVE [facility] Urine nitrite detection by a utomated test stripon 02-08-2024 Nitrite Auto test strip Ql (U) SMALL NEGATIVE [facility] Nitrite Auto test strip Ql (U) Negative NEGATIVE [facility] Urine sediment crystal ident ification by light microscopyon 02-08-2024 Crystals LM Nom (Urine sed) None Seen #/HPF None Seen [facility] Urine sediment leukocyte cou nt by microscopy (number/high power field)on 02-08-2024 WBC LM.HPF (Urine sed) [#/Area] 10-20 #/HPF NONE SEEN [facility] Urobilinogen Auto test strip (U) [Mass/Vol]on 02-08-2024 Urobilinogen Qn (U) 0.2 {Toshia'U}/dL 0.2-1.0 [facility] pH Auto test strip (U)on pH (U) 5.5 [pH] 5.0-9.0 [facility] CBC AUTO DIFFon 02-09-2023 BASO # 0.0 103/ul Normal 0.0-0.1 [facility] Comment on above: Performed By: #### C BC #### [facility] [address] [address] [address] Thierno Phipps Basophils/100 WBC (Bld) 0.4 % Normal 0.2-2.0 [facility] Comment on above: Performed By: #### C BC #### [facility] [address] [address] [address] Thierno Phipps EO # 0.5 103/ul Normal 0.0-0.7 [facility] Comment on above: Performed By: #### C BC #### [facility] [address] [address] [address] Thierno Phipps Eosinophils/100 WBC (Bld) 4.8 % Normal 0.9-7.0 [facility] Comment on above: Performed By: #### C BC #### [facility] [address] [address] [address] Thierno Phipps Erythrocyte distribution width (RBC) [Ratio] 13.2 % Normal 11.0-15.0 [facility] Comment on above: Performed By: #### C BC #### [facility] [address] [address] [address] Thierno Phipps Hematocrit (Bld) [Volume fraction] 48.4 % Critically high 36.0-48.0 [facility] Comment on above: Performed By: #### C BC #### [facility] [address] [address] [address] Thierno Phipps Hemoglobin (Bld) [Mass/Vol] 15.8 g/dL Normal 12.0-16.0 [facility] Comment on above: Performed By: #### C BC #### [facility] [address] [address] [address] Thierno Phipps IG # 0.03 10e3/ul Normal 0.00-0.03 [facility] Comment on above: Performed By: #### C BC #### [facility] [address] [place] [address] Dr. Thierno Phipps IG % 0.3 % Normal 0.0-0.5 [facility] Comment on above: Performed By: #### C BC #### [facility] [address] [place] [address] Dr. Thierno Phipps LYMPH # 2.9 103/ul Normal 1.2-3.8 [facility] Comment on above: Performed By: #### C BC #### [facility] [address] [place] [address] Dr. Thierno Phipps Lymphocytes/100 WBC (Bld) 30.1 % Normal 20.5-60.0 [facility] Comment on above: Performed By: #### C BC #### [facility] [address] [place] [address] Dr. Thierno Phipps MANUAL DIFF REQ NO Normal [facility] Comment on above: Performed By: #### C BC #### [facility] [address] [place] [address] Dr. Thierno Phipps MCH (RBC) [Entitic mass] 29.6 pg Normal 26.7-34.0 [facility] Comment on above: Performed By: #### C BC #### [facility] [address] [place] [address] Dr. Thierno Phipps MCHC (RBC) [Mass/Vol] 32.6 g/dL Normal 29.9-35.2 [facility] Comment on above: Performed By: #### C BC #### [facility] [address] [place] [address] Dr. Thierno Phipps MCV (RBC) [Entitic vol] 90.8 fL Normal 81.0-99.0 [facility] Comment on above: Performed By: #### C BC #### [facility] [address] [place] [address] Dr. Thierno Phipps MONO # 0.8 103/ul Normal 0.3-0.8 [facility] Comment on above: Performed By: #### C BC #### [facility] [address] [address] [address] Thierno Phipps Monocytes/100 WBC (Bld) 8.2 % Normal 1.7-12.0 [facility] Comment on above: Performed By: #### C BC #### [facility] [address] [address] [address] Thierno Phipps NEUT # 5.4 103/ul Normal 1.4-6.5 [facility] Comment on above: Performed By: #### C BC #### [facility] [address] [address] [address] Thierno Phipps Neutrophils/100 WBC (Bld) 56.2 % Normal 43.0-75.0 [facility] Comment on above: Performed By: #### C BC #### [facility] [address] [place] [address] Dr. Thierno Phipps Platelet mean volume (Bld) [Entitic vol] 10.4 fL Normal 9.5-13.5 [facility] Comment on above: Performed By: #### C BC #### [facility] [address] [address] [address] Thierno Phipps PLT 626 103/ul Critically high 150-450 [facility] Comment on above: Performed By: #### C BC #### [facility] [address] [place] [address] Dr. Thierno Phipps RBC 5.33 106/ul Normal 4.20-5.40 [facility] Comment on above: Performed By: #### C BC #### [facility] [address] [place] [address] Dr. Thierno Phipps WBC 9.6 103/ul Normal 4.0-11.0 [facility] Comment on above: Performed By: #### C BC #### [facility] [address] [place] [address] Dr. Thierno Phipps LIPID PROFILEon 02-09-2023 CHOL-HDL RATIO NORM SEE BELOW Normal [facility] Comment on above: Result Comment: 3.3 - 4.4 LOW RISK 4.4 - 7.1 AVERAGE RISK 7.1 - 11.0 MODERATE RISK >11.0 HIGH RISK Performed By: #### L IPID, CMP #### [facility] [address] [place] [address] Dr. Thierno Phipps Cholesterol [Mass/Vol] 267 mg/dL Critically high <=200 [facility] Comment on above: Performed By: #### L IPID, CMP #### [facility] [address] [place] [address] Dr. Thierno Phipps Cholesterol in HDL [Mass/Vol] 35 mg/dL Critically low 40-60 [facility] Comment on above: Performed By: #### L IPID, CMP #### [facility] [address] [place] [address] Dr. Thierno Phipps Cholesterol in LDL [Mass/Vol] 186.0 mg/dL Normal [facility] Comment on above: Performed By: #### L IPID, CMP #### [facility] [address] [place] [address] Dr. Thierno Phipps Cholesterol.total/Cholest janay in HDL [Mass ratio] 7.6 {ratio} Normal [facility] Comment on above: Performed By: #### L IPID, CMP #### [facility] [address] [place] [address] Dr. Thierno Phipps HDL NORMAL > or = 60 mg/dl - LOW CARDIOVASCULAR RISK <40 mg/dl - HIGH CARDIOVASCULAR RISK Normal [facility] Comment on above: Performed By: #### L IPID, CMP #### [facility] [address] [place] [address] Dr. Thierno Phipps LDL CALC NORMAL SEE BELOW Normal [facility] Comment on above: Result Comment: <100 mg/dl OPTIMAL 100 - 129 mg/dl NEAR OR ABOVE OPTIMAL 130 - 159 mg/dl BORDERLINE HIGH 160 - 189 mg/dl HIGH >190 mg/dl VERY HIGH Performed By: #### L IPID, CMP #### [facility] [address] [place] [address] Dr. Thierno Phipps Triglyceride [Mass/Vol] 230 mg/dL Critically high <=150 [facility] Comment on above: Performed By: #### L IPID, CMP #### [facility] [address] [place] [address] Dr. Thierno Phipps VLDL CALC 46.0 mg/dL Normal [facility] Comment on above: Performed By: #### L IPID, CMP #### [facility] [address] [place] [address] Dr. Thierno Phipps MICROALBUMIN, RAND URon 04-0 mALB <1.3 Normal <=30.0 [facility] Comment on above: Performed By: #### M ALBR #### [facility] [address] [place] [address] Dr. Thierno Phipps PROF 14(COMP METB)on 023 Albumin [Mass/Vol] 4.0 g/dL Normal 3.4-5.0 [facility] Comment on above: Performed By: #### L IPID, CMP #### [facility] [address] [place] [address] Dr. Thierno Phipps Albumin/Globulin [Mass ratio] 1.0 {ratio} Normal [facility] Comment on above: Performed By: #### L IPID, CMP #### [facility] [address] [place] [address] Dr. Thierno Phipps ALP [Catalytic activity/Vol] 93 U/L Normal 46-116 [facility] Comment on above: Performed By: #### L IPID, CMP #### [facility] [address] [place] [address] Dr. Thierno Phipps ALT [Catalytic activity/Vol] 30 U/L Normal 14-59 [facility] Comment on above: Performed By: #### L IPID, CMP #### [facility] [address] [place] [address] Dr. Thierno Phipps Anion gap [Moles/Vol] 7.9 mmol/L Normal [facility] Comment on above: Performed By: #### L IPID, CMP #### [facility] [address] [place] [address] Dr. Thierno Phipps AST [Catalytic activity/Vol] 18 U/L Normal 15-37 [facility] Comment on above: Performed By: #### L IPID, CMP #### [facility] [address] [address] [address] Thierno Phipps Bilirubin [Mass/Vol] 0.4 mg/dL Normal 0.2-1.0 [facility] Comment on above: Performed By: #### L IPID, CMP #### [facility] [address] [address] [address] Thierno Phipps Calcium [Mass/Vol] 10.0 mg/dL Normal 8.5-10.1 [facility] Comment on above: Performed By: #### L IPID, CMP #### [facility] [address] [address] [address] Thierno Phipps Chloride [Moles/Vol] 101 mmol/L Normal 98-107 [facility] Comment on above: Performed By: #### L IPID, CMP #### [facility] [address] [address] [address] Thierno Phipps CO2 [Moles/Vol] 32.9 mmol/L Critically high 21.0-32.0 [facility] Comment on above: Performed By: #### L IPID, CMP #### [facility] [address] [place] [address] Dr. Thierno Phipps Creatinine [Mass/Vol] 0.97 mg/dL Normal 0.55-1.02 [facility] Comment on above: Performed By: #### L IPID, CMP #### [facility] [address] [place] [address] Dr. Thierno Phipps EGFR-AF [place] >60 Normal >=60 [facility] Comment on above: Performed By: #### L IPID, CMP #### [facility] [address] [address] [address] Thierno Phipps EGFR-NON AF [place] 56 mL/min/1.73m2 Critically low >=60 [facility] Comment on above: Performed By: #### L IPID, CMP #### [facility] [address] [address] [address] Thierno Phipps Globulin (S) [Mass/Vol] 4.0 g/dL Normal [facility] Comment on above: Performed By: #### L IPID, CMP #### [facility] [address] [address] [address] Thierno Phipps Glucose [Mass/Vol] 119 mg/dL Critically high 74-106 [facility] Comment on above: Performed By: #### L IPID, CMP #### [facility] [address] [address] [address] Thierno Phipps Potassium [Moles/Vol] 3.8 mmol/L Normal 3.5-5.1 [facility] Comment on above: Performed By: #### L IPID, CMP #### [facility] [address] [place] [address] Dr. Thierno Phipps Protein [Mass/Vol] 8.0 g/dL Normal 6.4-8.2 [facility] Comment on above: Performed By: #### L IPID, CMP #### [facility] [address] [place] [address] Dr. Thierno Phipps Sodium [Moles/Vol] 138 mmol/L Normal 136-145 [facility] Comment on above: Performed By: #### L IPID, CMP #### [facility] [address] [place] [address] Dr. Thierno Phipps Urea nitrogen [Mass/Vol] 14.0 mg/dL Normal 7.0-18.0 [facility] Comment on above: Performed By: #### L IPID, CMP #### [facility] [address] [place] [address] Dr. Thierno Phipps Urea nitrogen/Creatinine [Mass ratio] 14.4 mg/mg Normal [facility] Comment on above: Performed By: #### L IPID, CMP #### [facility] [address] [place] [address] Dr. Thierno Phipps XR LSPINE 2_3 VIEWSon [...] by: RAIN HOWE Date: 2022-10-19 21:47 Normal [facility] XR HIP RT 2 3V W PELVISon [...] by: CHAITANYA DAVIS Date: 2022-10-18 16:[address] [facility] [address] LUNG CANCER SCREENINGon 0 05-17-2022 CT [...] mass, effusion, or pneumothorax. VASCULATURE: No abnormality. JACOBY: No mass or pathologic adenopathy. MEDIASTINUM: Calcified [...] by: CHAITANYA CROCKER Date: 2022-05-17 15:19 Normal [facility] XR CHEST 2 Von 04-13-2022 XR CHEST [...] by: WICHO CUETO Date: 2022-04-13 13:32 Normal [facility] XR KUB 1 VIEWon 04-13-2022 XR KUB [...] by: CHAITANYA CROCKER Date: 2022-04-13 17:20 Normal [facility] Vital Signs Date Time Vital Sign Value Performing Clinician Facility 02-13-2024 11:270400 Body height 160.02 cm [facility] 02-13-2024 11:270400 Body mass index (BMI) [Ratio] 22.4 kg/m2 [facility] 02-13-2024 11:27-0400 Body weight 57.6 kg [facility] 02-13-2024 11:27-0400 Diastolic blood pressure 53 mm[Hg] [facility] 02-13-2024 11:27-0400 Heart rate 60 /min [facility] 02-13-2024 11:27-0400 Systolic blood pressure 89 mm[Hg] [facility] 08-14-2023 15:00-0400 Body height 160.02 cm Olga Schwartz Other [facility] 08-14-2023 15:00-0400 Body mass index (BMI) [Ratio] 24.37 kg/m2 Olga Schwartz Other [facility] 08-14-2023 15:00-0400 Body weight 62.42 kg Olga Schwartz Other [facility] Other 08-14-2023 15:00-0400 Diastolic blood pressure 69 mm[Hg] Olga Schwartz Other [facility] Other 08-14-2023 15:00-0400 Systolic blood pressure 107 mm[Hg] Olga Schwartz Other [facility] Other 05-16-2023 14:00-0400 Body height 160.02 cm Olga Schwartz Other [facility] Other 05-16-2023 14:00-0400 Body mass index (BMI) [Ratio] 24.8 kg/m2 Olga Schwartz Other [facility] Other 05-16-2023 14:00-0400 Body weight 63.5 kg Olga Schwartz Other [facility] Other 05-16-2023 14:00-0400 Diastolic blood pressure 65 mm[Hg] Olga Schwartz Other [facility] Other 05-16-2023 14:00-0400 Systolic blood pressure 119 mm[Hg] Olga Schawrtz Other [facility] Other 02-07-2023 16:00-0400 Body height 160.02 cm Olga Schwartz Other [facility] Other 02-07-2023 16:00-0400 Body mass index (BMI) [Ratio] 25.33 kg/m2 Olga Efren Other [facility] Other 02-07-2023 16:00-0400 Body weight 64.86 kg Olga Efren Other [facility] Other 02-07-2023 16:00-0400 Diastolic blood pressure 82 mm[Hg] Olga Schwartz Other [facility] Other 02-07-2023 16:00-0400 SaO2% (BldA) [Mass fraction] 97 % Olgashantelle Schwartz Other [facility] Other 02-07-2023 16:00-0400 Systolic blood pressure 124 mm[Hg] Olga Schwartz Other [facility] Other Encounters Encounter Date Encounter Type Care Provider Facility Start: 08-13-2024 End: 08-13-2024 [facility] Result Encounter Generic External Data Provider [facility] External Department Unsolicited Start: 08-13-2024 End: 08-13-2024 [facility] Result Encounter Generic External Data Provider [facility] External Department Unsolicited Start: 08-06-2024 End: 08-12-2024 Refill Keira Church [employer] Work Phone: [facility] Comment on above: Lumbar back pain (Pr imary Dx); Hyperlipidemia, unspecified hyperlipidemia type (CMS/HCC); Essential (primary) hypertension (CMS/HCC); Restless leg syndrome; Cerebrovascular accident (CVA), unspecified mechanism (CMS/HCC) Start: 07-24-2024 End: 07-24-2024 ambulatory KEIRA CHURCH Not Available Start: 07-24-2024 Patient encounter status Keira Church [employer] Work Phone: [facility] Start: 04-30-2024 End: 04-30-2024 ambulatory NESTOR IVERSON Not Available Start: 04-02-2024 End: 04-02-2024 [facility] Start: 03-26-2024 ambulatory Neto Hooper Facility:[facility] Start: 03-25-2024 End: 03-25-2024 ambulatory DAWIT HOWARD Not Available Start: 03-19-2024 End: 03-19-2024 ambulatory Olga Schwartz Facility:[facility] Start: 02-13-2024 End: 02-13-[address] [facility] Work Phone: Start: 02-13-2024 End: 02-13-2024 Patient encounter procedure [facility] Work Phone: Start: 02-12-2024 ambulatory [facility] Start: 02-12-2024 ambulatory [facility] Start: 02-09-2024 Non-patient / Non-visit [facility] Physician [facility] Work Phone: Start: 02-08-2024 End: 02-11-2024 Emergency department patient visit [facility] Start: 02-08-2024 Non-patient / Non-visit [facility] Physician [facility] Work Phone: Start: 01-15-2024 Non-patient / Non-visit [facility] Work Phone: Start: 12-22-2023 Non-patient / Non-visit [facility] Physician [facility] Work Phone: Start: 10-24-2023 End: 10-24-2023 ambulatory Olga Schwartz Other [facility] Other Start: 10-24-2023 Telephone encounter Olga Schwartz [facility] Start: 09-22-2023 End: 09-22-2023 ambulatory Olga Schwartz Other [facility] Other Start: 09-22-2023 Telephone encounter Olga Schwartz [facility] Start: 08-23-2023 End: 08-23-2023 ambulatory Olga Schwartz Other [facility] Other Start: 08-23-2023 Telephone encounter Olga Schwartz [facility] Start: 08-14-2023 End: 08-14-2023 ambulatory Olga Schwartz Other [facility] Other Start: 08-14-2023 Office outpatient vi sit 15 minutes Olga Schwartz [facility] Start: 08-14-2023 Telephone encounter Olga Schwartz [facility] Start: 07-24-2023 End: 07-24-2023 ambulatory Olga Schwartz Other [facility] Other Start: 07-24-2023 Telephone encounter Olga Schwartz [facility] Start: 06-23-2023 End: 06-23-2023 ambulatory Olga Schwartz Other [facility] Other Start: 06-23-2023 Telephone encounter Olga Schwartz [facility] Start: 06-12-2023 End: 06-12-2023 ambulatory Olga Schwartz Other [facility] Other Start: 06-12-2023 Telephone encounter Olga Schwartz [facility] Start: 05-16-2023 End: 05-16-2023 ambulatory Olga Schwartz Other [facility] Other Start: 05-16-2023 Office outpatient vi sit 15 minutes Olga Schwartz [facility] Start: 02-24-2023 End: 02-24-2023 ambulatory Olga Schwartz Other [facility] Other Start: 02-24-2023 Telephone encounter Olga Schwartz [facility] Start: 02-13-2023 End: 02-13-2023 ambulatory Fernando Silverio Other [facility] Other Start: 02-13-2023 Telephone encounter Olga Schwartz [facility] Start: 02-09-2023 End: 02-10-[address] OLGA SCHWARTZ Facility:[facility] Start: 02-07-2023 End: 02-07-2023 ambulatory Olga Schwartz Other [facility] Other Start: 02-07-2023 Office outpatient vi sit 25 minutes Olga Schwartz [facility] Start: 10-18-2022 End: 10-19-[address] OLGA SCHWARTZ Facility:[facility] Start: 10-14-2022 Pre-procedure evaluation check Olga Schwartz Other [facility] Other Start: 05-17-2022 End: 05-18-[address] OLGA SCHWARTZ Facility:[facility] Start: 04-13-2022 End: 04-14-[address] OLGA SCHWARTZ Facility:[facility] Procedures Date Procedure Procedure Detail Performing Clinician Start: 08-13-2024 ALL CBC WITH AUTO DIFF Generic External Data Provider Start: 07-24-2024 H/O: artificial joint Presence of right artificial shoulder joint Keira Church NP Work Phone: Start: 02-08-2024 Bacteria identified in Urine by Culture Start: 11-22-2018 Screening for malign ant neoplasm of cervix Olga Schwartz Other Plan of Treatment Date Care Activity Detail Author Start: 09-23-2024 End: 09-23-2024 Patient encounter procedure 09/23/2024 2:30 PM EST [facility] [address] [place] [address] Keira Church NP [address] [place] [address] [facility] Start: 08-20-2024 End: 08-20-2024 Patient encounter procedure 08/20/2024 2:40 PM EDT Office Visit [facility] [address] [place] [address] Nestor Iverson, MICHELLE [address] [place] [address] [facility] [address] Start: 02-13-2024 Patient referral [facility] Work Phone: Patient referral [facility] Work Phone: Immunizations Immunization Date Immunization Notes Care Provider [facility] 08-10-2022 influenza virus vaccine, split virus (incl. purified surface antigen) Olga Schwartz Other [facility] Other 08-10-2022 influenza virus vaccine, unspecified formulation [facility] Payers Date Payer Category Payer Medicare [employer] MEDICARE ADVANTAGE [facility] MEDICARE ADVANTAGE [id number] 2023-Present [address] [place] [address] [id number] 2018 Medicaid MEDICAID [facility] [id number] 2018-Present [phone] [address] [place] [address] Medicaid [id number] 1959 Medicaid [id number] 1959 Medicare [id number] 1948 Unknown [id number] 1948 Unknown [id number] 1948 Unknown [id number] 1948 Unknown [id number] 1948 Unknown [id number] [id number] 1948 Unknown [id number] 1948 Unknown [id number] [id number] 1948 Unknown [id number] [id number] 1948 Unknown [id number] [id number] 1948 Unknown [id number] Social History Date Type Detail Facility Unknown if ever smoked [facility] Other Start: 07-24-2024 Sex Assigned At N [facility] Other Start: 1950 Sex Assigned At Female F [facility] Start: 07-24-2024 Tobacco smoking stat [facility] Smokes tobacco daily [facility] History of tobacco use Cigarette Smoker [facility] History of tobacco use Passive smoker [facility] Start: 07-24-2024 Alcoholic beverage intake Lifetime non-drinker (finding) [facility] Start: 07-24-2024 History of Social function [facility] Start: 1950 Sex assigned at Not on file N [facility] Clinical Notes 02-07-2023 to 04-02-2024 Note Date & Type Note Facility 04-02-2024 Note [facility] Cardiology Clinic Note Chief Complaint: New patient here to establish care. Ref from Dr. Schwartz for bradycardia. She had stroke last month and was admitted to [facility]. Still smokes almost 1 PPD but is trying to cut back. Says she's had mitral valve prolapse forever . Does feel palpitations at times. Thinks she used to see cardiology in [place] years ago. Denies chest pain, SOB, and [...] year ago. She used to see a housekeeping assistant several years ago for what she describes [...] clinic following testing Jaron Johnson MD, MPH, [facility], [facility], [facility] Interventional Cardiology Pager Email: [email or web address] 08-14-2023 Evaluation note Encounter Date Diagnosis Assessment Notes Aug, LLQ abdominal pain (ICD-10 - R10.32) Reviewed paperwork and test results from [facility] ER. She agrees she needs a colonoscopy due to ongoing blood in her stool and LLQ pain. Agrees to referral to Dr. Stevenson. Aug, Hematochezia (ICD-10 - K92.1) as above [facility] Other 04-06-2023 NotePROCEDURE: XR HIP LT 2 3V W PELVIS [...] Electronically authenticated by: RAIN HOWE Date: 2023-02-09 11:04[facility]04-04-2023 Evaluation note* Encounter Date Diagnosis Assessment Notes Treatment Notes Treatment Clinical Notes Feb, Essential hypertension (ICD-10 - I10) Due for labs. Chronic problem. Feb, B12 deficiency (ICD-10 - E53.8) Pt states she was previously on injections. Would like to check level due to fatigue. Feb, Other hyperlipidemia (ICD-10 - E78.49) Chronic problem, on statin, due for labs. Feb, Left hip pain (ICD-1 0 - M25.552) Several months - check Xray Also checked OARRS and reviewed pain contract brii Grace. [facility] Other Evaluation noteNo InformationNo[employer] Other Evaluation noteNoBiosport [employer] Other Evaluation note* Diagnosis Onset Date Resolution Status Seizure acute Stroke acute [facility] Work Phone: Evaluation note* Diagnosis Lumbar back pain- Primary Lumbago Hyperlipidemia, unspecified hyperlipidemia type (CMS/HCC) Essential (primary) hypertension (CMS/HCC) Unspecified essential hypertension Restless leg syndrome Restless legs syndrome (RLS) Cerebrovascular accident (CVA), unspecified mechanism (CMS/HCC) documented in this encounter [facility] N[facility]ative - Reported* Type Description Date Medical History Bronchitis Medical History Anxiety and [...] HAND RECONSTRUCTION Hospitalization History SEE SURGICAL HX [facility] Other History general [facility]ative - [facility] Other Hospital Discharge instructionsAmbulatory Orders* Referral to Neurology Time Frame: 02/13/24, Location: None Selected [facility] Work Phone: Summary Purpose Family History Relationship Condition Age at Onset Recorded Date/T sam father Unknown Not Specified Unknown Advance Directives Advance Directive Response Recorded Date/ Time Advance Directives No February 12 10:17am Reason for Referral Reason Needs colonosco py - had imaging in [facility] ER. Diagnosis 1 LLQ abdominal pain ( R10.32) Referral Organization [facility] Referring Provider First Name Olga Referring Provider Last Name Efren Referring Provider Specialty Family [facility] cine Referred Organization [facility] Referred Provider Flakito Stevenson Referred Address [address] [place], [place],[address] Referred Provider Specialty General Surg glen Referral Priority Routine General Notes Maida Dave 02:01:18 PM >received today, attachments made, waiting for notes to be locked Chief Complaint and Reason for Visit Chief Complaint Amb Documentation Amb Documentation [facility] d/c Reason for Visit Seizure Stroke Additional Source Comments REASON FOR VISIT (unrecogniz ed section and content) Reason Onset Date Comments Med Refill 08/06/2024 INFORMATION SOURCE (unrecogn ized section and content) DATE CREATED AUTHOR 02/18/2023 [facility] DATE CREATED AUTHOR AUTHOR'S ORGANIZ ATION 02/13/2024 [facility] DATE CREATED AUTHOR AUTHOR'S ORGANIZ ATION 02/15/2024 [facility] DATE CREATED AUTHOR AUTHOR'S ORGANIZ ATION 03/24/2024 [facility] DATE CREATED AUTHOR AUTHOR'S ORGANIZ ATION 03/28/2024 [facility] DATE CREATED AUTHOR AUTHOR'S ORGANIZ ATION 04/03/[address] [facility] DATE CREATED AUTHOR AUTHOR'S ORGANIZ ATION 07/27/2024 [facility] EPIC Care Teams (unrecognized sec [...] February 13, 2024 End: February 13, 2024 Medical Or Surgical Instrument Maker Relationship Specialty Start Date End Date Olga Schwartz MD [address] [place] [address] PCP - General Family Medicine 03/25/24 Medical Or Surgical Instrument Maker Relationship Specialty Start Date End Date Olga Schwartz MD [address] [place] [address] PCP - General Family Medicine 03/25/24 Goals (unrecognized section and content) Goals may [...] BE BASED ON THE PRIMARY CLINICAL RECORDS. [employer] [facility]. provides no warranty or guarantee of the accuracy or completeness of information in this document.
[2024-09-03 13:48] LABS: Basophils Percent Auto 0.6 % (0.2-2.0); Eosinophils Absolute Auto 0.2 10^3/uL (0.0-0.7); Eosinophils Percent Auto 3.5 % (0.9-7.0); Hematocrit 42.2 % (36.0-48.0); Hemoglobin 13.9 g/dL (12.0-16.0); Immature Granulocytes Abs Auto 0.01 10^3/uL (0.00-0.03); Immature Granulocytes Pct Auto 0.1 % (0.0-0.5); Lymphocytes Absolute Auto 2.5 10^3/uL (1.2-3.8); Lymphocytes Percent Auto 36.5 % (20.5-60.0); Mean Corpuscular HGB Conc 32.9 g/dL (29.9-35.2); Mean Corpuscular Volume 106.3 fL (81.0-99.0); Mean Platelet Volume 10.7 fL (9.5-13.5); Monocytes Absolute Auto 0.6 10^3/uL (0.3-0.8); Monocytes Percent Auto 8.4 % (1.7-12.0); Neutrophils Absolute Auto 3.5 10^3/uL (1.4-6.5); Neutrophils Percent Auto 50.9 % (43.0-75.0); Platelet Count 340 10^3/uL (150-450); Red Blood Count 3.97 10^6/uL (4.20-5.40); Red Cell Distribution Width 14.7 % (11.0-15.0); White Blood Count 6.8 10^3/uL (4.0-11.0)
[2024-09-03 13:52] LABS: Estimated Average Glucose 128 mg/dL; Glycohemoglobin A1C 6.1 % (4.5-6.2)
[2024-09-03 14:10] LABS: Alanine Aminotransferase 20 U/L (14-59); Albumin Globulin Ratio 1.1; Albumin Level 3.6 g/dL (3.4-5.0); Alkaline Phosphatase 88 U/L (46-116); Anion Gap 10.9; Aspartate Amino Transferase 21 U/L (15-37); BUN Creatinine Ratio 21.5; Bilirubin Total 0.4 mg/dL (0.2-1.0); Calcium 8.9 mg/dL (8.5-10.1); Carbon Dioxide 30.5 mmol/L (21.0-32.0); Chloride 105 mmol/L (98-107); Chol HDL Ratio 2.5; Cholesterol 112 mg/dL (<=200); Estimated GFR (African America >60 (>=60 mL/min/1.73m^2); Estimated GFR (Non-African Ame 59 (>=60 mL/min/1.73m^2); Globulin 3.4 g/dL; Glucose 98 mg/dL (74-106); HDL Cholesterol 44 mg/dL (40-60); LDL Cholesterol Calculated 47.6 mg/dL; Potassium 4.4 mmol/L (3.5-5.1); Sodium 142 mmol/L (136-145); TSH W/ REFLEX FT4 1.236 uIU/mL (0.358-3.740); Triglycerides 102 mg/dL (<=150); VLDL CHOLESTEROL 20.4 mg/dL
== END 2024-09-03 13:26 | disposition home or self-care (01) ==
LOC: LAB 13:27
DX: E78.2 Mixed hyperlipidemia (principal); I10 Essential (primary) hypertension; I63.9 Cerebral infarction, unspecified
CPT/HCPCS: 36415; 80053; 80061; 83036; 84443; 85025

== ENCOUNTER 2024-09-21 12:32 | Emergency (ER) | payer MEDICARE, MEDICAID, SELFPAY ==
[2024-09-21] VITALS (11 sets, daily range): BP systolic 127–147; BP diastolic 60–75; PULSE 45–50; TEMP 36.8; O2SAT 95–100; BMI 23.0
--- OUTSIDE RECORDS SUMMARY | 2024-09-21 12:40 | XMS_ITS | CCD ---
Author Organization [facility] Care Team Providers Care Embroidery Operator Name Role Phone Olga Schwartz Unavailable Fernando [...] DR OLGA Rodriguez Consulting Unavailable SCHWARTZ, DR OGLA Rodriguez Admitting Unavailable SCHWARTZ, DR OLGA Rodriguez Attending Unavailable SCHWARTZ, DR OLGA Rodriguez Primary Care Unavailable ZIEBER, DR RAIN Bloom Consulting Unavailable SCHWARTZ, DR OLGA Rodriguez Consulting [facility]available [facility] Unavailable SCHWARTZ, DR OLGA Rodriguez Admitting Unavailable SCHWARTZ, DR OLGA Rodriguez Attending Unavailable SCHWARTZ, DR OLGA Rodriguez Primary Care Unavailable WEST, DR CHAITANYA King Consulting Unavailable SCHWARTZ, DR OLGA Rodriguez Consulting Unavailable FRANKEL, ELOINA A Referring Unavailable SHANNAN, SAIRA W Primary Care Unavailable SHANNAN, SAIRA W Primary Care Unavailable SHANNAN, SAIRA W Referring Unavailable SHANNAN, SAIRA W Primary Care Unavailable SchwartzOlga Attending Unavailable Olga Schwartz Primary Care Unavailable Olga Schwartz Admitting Unavailable SchwartzOlga Admitting Unavailable SchwartzOlga Attending Unavailable Olga Schwartz Primary Care Unavailable Neto Hooper Attending UnavailDO Dawit Fountain Referring Unava ilable JARON JOHNSON Attending Unavailable DAWIT HOWARD Attending Unavailable NESTOR IVERSON Attending Unavailable KEIRA CHURCH Attending UnavailOlga Brown MD Primary Care Provider Ethan Bonilla MD Primary Care Provider [phone] Lynnette EMBROIDERY PATTERNMAKER, Keira Unavailable Allergies Allergy Classification Reported Allergen(s) Allergy Type Date of Onset Reaction(s) Facility (15 sources) nickel; Translations: [NICKEL] Drug Allergy 02-13-20 Unknown, [facility] (13 sources) Penicillin Drug Allergy Unknown [facility] [employer] Other (20 sources) PHENobarbital; Translations: [PHENOBARBITAL] Drug Allergy 04-07-20 Rash, Unknown [facility] (20 sources) Phenytoin; Translations: [PHENYTOIN] Drug Allergy 04-07-20 Unknown [facility] (15 sources) Zinc; Translations: [ZINC] Drug Allergy 02-13-20 Unknown, [facility] (1 source) benzoin resin Drug Allergy 09-25-20 14 [facility] (1 source) Leucine Drug Allergy [facility] Repository (5 sources) Penicillins; Translations: [PENICILLINS] Drug allergy (disorder) 09-25-20 14 [facility] Repository (1 source) Phenytoin Drug Allergy 09-25-20 14 [facility] Repository (8 sources) Allergies Reconciled Propensity to adverse reactions Unknown [facility] [employer] Other (8 sources) Penicillin G Benzathine & Proc Drug allergy Unknown [facility] [employer] Other (8 sources) PHENobarbital *HYPNOTICS/SEDAT ANN/SLEEP DISORDER Propensity to adverse reactions Unknown [facility] [facility] [employer] Other (8 sources) patient allergy list reviewed by nurse or physicia Propensity to adverse reactions 03-29-20 19 Comment:Done [employer] [facility] [employer] Other (7 sources) Penicillin G Benzathine Allergy to substance 02-13-20 [facility] (1 source) PHENobarbital *HYPNOTICS/SEDAT Allergy to substance 02-13-20 [facility] (8 sources) Phenytoin; Translations: [PHENYTOIN SODIUM EXTENDED] Drug Allergy 04-07-20 Rash [facility] Repository (6 sources) nickel sulfate Drug Allergy 03-21-20 Unknown [facility] (6 sources) Penicillins Drug Intolerance 04-07-20 Rash, Unknown [facility] (6 sources) Zinc Acetate Drug Allergy 03-21-20 [facility] Medications Current Medications Medication Drug Class(es) Dates Sig (Normalized) Sig (Original) acetaminophen 325 mg / oxyCODONE hydrochloride 7.5 mg oral tablet (20 sources) Opioid Agonist Start: 08-12-2024 End: 09-11-2024 take 1 tablet by mouth in the morning oxyCODONE-acetami nophen (Percocet) 7.5-325 MG tablet Indications: Lumbar back pain Take 1 tablet by mouth in the morning and 1 tablet before bedtime. 60 tablet 09/11/2024 Active Start: 12-22-2023 End: 01-22-2024 take 1 [...] Active 1 MG PO Twice daily 60 January 22, 2024 3:55pm Start: 10-24-2023 ALPRAZolam [...] Jan, Active aspirin 325 mg oral tablet (7 sources) Platelet Aggregation Inhibitor, Nonsteroidal Anti-inflammatory Drug [...] Discontinued (Reorder) atorvastatin 80 mg oral tablet (7 sources) HMG-CoA Reductase Inhibitor Start: 08-12-2024 End: [...] Ciprofloxacin (5 sources) Quinolone Antimicrobial Ciprofloxacin Active dapagliflozin 5 mg oral tablet (1 source) Sodium-Glucose Cotransporter 2 Inhibitor Start: 09-16-20 End: 09-16-20 take 1 tablet by mouth once daily dapagliflozin (Farxiga) 5 MG Indications: Type 2 diabetes mellitus with chronic kidney disease, without long-term current use of insulin, unspecified CKD stage (CMS/HCC) Take 1 tablet (5 mg) by mouth Daily 30 tablet 11 09/16/2024 09/16/2025 Active gabapentin 300 mg oral capsule (20 sources) Anti-epileptic Agent Start: 08-12-20 take 1 capsule by mouth once daily gabapentin (Neurontin) 300 MG capsule Indications: Neuropathic Pain Take 1 capsule (300 mg) by mouth Daily 30 capsule 2 08/12/2024 Active Start: 02-09-2024 take 300 mg by mouth three times daily Gabapentin Active 300 MG PO Three times daily February 09, 2024 12:00am Start: 11-08-2022 take 1 capsule by [facility] three times daily Gabapentin 300 MG 1 capsule Orally 3 times per day for 30 day(s) Nov, Active End: 08-06-2024 take 1 capsule by mouth once daily gabapentin (Neurontin) 300 MG capsule Indications: Neuropathic Pain Take 300 mg by mouth Daily 08/06/2024 Discontinued (Reorder) hydroxyurea 500 mg oral capsule (6 sources) Antimetabolite Start: 04-23-2024 take 1 capsule by mouth once daily hydroxyurea (Hydrea) 500 MG capsule Take 500 mg by mouth Daily. 04/23/2024 Active Hyoscyamine (5 sources) Hyoscyamine Acti ve latanoprost 0.05 mg/ml ophthalmic solution (6 sources) Prostaglandin Analog Start: 05-17-2024 take 1 drop(s) into the eye(s) once daily at bedtime latanoprost (Xalatan) 0.005 % ophthalmic solution INSTILL 1 DROP IN EACH EYE EVERY DAY AT BEDTIME 05/17/2024 Active levETIRAcetam 500 mg oral tablet (20 sources) Start: 01-15-2024 take 1 tablet by [...] Active metoprolol tartrate 25 mg oral tablet (20 sources) beta-Adrenergic Tereso Start: 08-12-2024 take 1 [...] 90 Active rOPINIRole 0.5 mg oral tablet (15 sources) Nonergot Dopamine Agonist Start: 09-03-2024 take 1 tablet by mouth once daily rOPINIRole (Requip) 0.5 MG tablet Indications: Restless leg syndrome TAKE 1 TABLET BY MOUTH EVERYDAY AT THE SAME TIME 90 tablet 1 09/03/2024 Active Start: 08-12-2024 End: 09-03-2024 take 1 tablet by mouth once daily rOPINIRole (Requip) 0.5 MG tablet Indications: Restless leg syndrome Take 1 tablet (0.5 mg) by mouth 1 (one) time each day at the same time 30 tablet 08/12/2024 09/03/2024 Discontinued Start: 01-19-2024 End: 02-13-2024 take 1 tablet [...] pain] Onset: 8 Episodic Acute cerebrovascular disease (12 sources) Cerebrovascular accident; Translations: [Cerebral infarction, unspecified] [...] not specified as acute or chronic] Episodic Diabetes mellitus with complications (1 source) Type 2 diabetes mellitus; Translations: [Type 2 diabetes mellitus with diabetic chronic kidney disease] 09-16-2024 Chronic Disorders of lipid metabolism (20 sources) Hyperlipidemia; Translations: [Other hyperlipidemia] Onset: 3 Chronic Diverticulosis and diverticulitis (8 sources) Diverticulitis of colon; Translations: [Diverticulitis of intestine, part unspecified, without perforation or abscess without bleeding] Onset: 8 Chronic Epilepsy; convulsions (9 sources) Epilepsy; Translations: [Epilepsy, unspecified, not intractable, without status epilepticus] Onset: 8 02-09-2024 Chronic Esophageal disorders (6 sources) Gastroesophageal reflux disease; Translations: [Gastro-esophageal reflux disease without esophagitis] Onset: 4 07-24-2024 Chronic Essential hypertension (20 sources) Essential hypertension; Translations: [Essential (primary) hypertension] Onset: 3 Chronic Gastrointestinal hemorrhage (1 source) Melena Episodic Glaucoma (6 sources) Glaucoma; Translations: [Unspecified glaucoma] Onset: 4 [...] osteoarthritis, left hip] Onset: 8 Chronic Osteoporosis (15 sources) Primary osteoporosis; Translations: [Age-related osteoporosis without current pathological fracture] Onset: 8 02-09-2024 Chronic Other and ill-defined cerebrovascular disease (1 source) Other cerebrovascular vasospasm and vasoconstriction; Translations: [Other cerebrovascular vasospasm and vasoconstriction] Onset: 4 Chronic Other circulatory disease (8 sources) Elevated blood-pressure reading without diagnosis of hypertension; Translations: [Elevated blood-pressure reading, without diagnosis of hypertension] Episodic Other connective tissue disease (6 sources) Tear of right rotator cuff; Translations: [Unspecified rotator cuff tear or rupture of right shoulder, not specified as traumatic] Onset: 4 07-24-2024 Episodic Other hereditary and degenerative nervous system conditions (20 sources) Restless legs; Translations: [Restless legs syndrome] Onset: 4 02-09-2024 Chronic Other nervous system disorders (16 sources) Carpal tunnel syndrome of left wrist; Translations: [Carpal tunnel syndrome, left upper limb] Onset: 4 02-09-2024 Chronic Other nervous system disorders (1 source) Carpal tunnel syndrome, left upper limb Chronic Other nervous system disorders (6 sources) Aphasia; Translations: [Aphasia] Onset: 4 03-21-2024 Chronic Other nervous system disorders (6 sources) Chronic pain; Translations: [Other chronic pain] [...] lumbar region] Onset: 2 Chronic Substance-related disorders (19 sources) Nicotine dependence, cigarettes, uncomplicated; Translations: [Tobacco user] Onset: Chronic Unclassified (8 sources) Exposure to acute respiratory syndrome coronavirus 2; Translations: [Contact with and (suspected) exposure to COVID-19] Urinary tract infections (16 sources) Urinary tract infectious disease; Translations: [Urinary tract infection, site not specified] Onset: 8 Episodic Past or Other Problems Problem Classification Problem Date Documented Da te Episodic/Chronic Allergic reactions (6 sources) Eczema; Translations: [Dermatitis, unspecified] Onset: 04-02-2024 07-24-2024 Episodic Diabetes mellitus without complication (8 sources) Abnormal glucose level; Translations: [Other abnormal glucose] Onset: 10-23-2018 Episodic Epilepsy; convulsions (8 sources) Seizure; Translations: [Unspecified convulsions] Onset: 03-21-2024 02-13-2024 Episodic Genitourinary symptoms and ill-defined conditions (8 sources) Dysuria; Translations: [Dysuria] Onset: 10-23-2018 Episodic Headache; including migraine (13 sources) Headache; including migraine; Translations: [Left temporal headache] Inflammatory diseases of female pelvic organs (8 sources) Acute vaginitis; Translations: [Acute vaginitis] Onset: 11-22-2018 Episodic Mood disorders (6 sources) Mood disorders Onset: 07-24-2024 07-24-2024 Nutritional deficiencies (20 sources) Vitamin B12 deficiency (non anemic); Translations: [Deficiency of other specified B group vitamins] Onset: 02-17-2023 Episodic Other connective tissue disease (6 sources) Primary fibromyalgia syndrome; Translations: [Fibromyalgia] Onset: 04-02-2024 07-24-2024 Episodic Other non-traumatic joint disorders (4 sources) Pain in right hip; Translations: [PAIN IN RIGHT HIP] Onset: 10-18-2022 Episodic Other non-traumatic joint disorders (8 sources) Shoulder joint pain; Translations: [Pain in right shoulder] Onset: 09-03-2018 Episodic Pancreatic disorders (not diabetes) (6 sources) Drug-induced acute pancreatitis; Translations: [Drug induced acute pancreatitis without necrosis or infection] Onset: 04-08-2021 07-24-2024 Episodic Residual codes; unclassified (15 sources) Insomnia; Translations: [Insomnia, unspecified] Onset: 04-02-2024 02-09-2024 Episodic Spondylosis; intervertebral disc disorders; other back problems (20 sources) Sciatica; Translations: [Sciatica, right side] Onset: 10-22-2022 12-22-2023 Episodic Results Test Name Value Interpretation Reference Range Facility ALL CBC WITH AUTO DIFFon BASOPHILS ABSOLUTE AUTO 0 [facility] Basophils/100 WBC (Bld) 0.6 % 0.2 - 2.0 % [facility] Eosinophils/100 WBC (Bld) 3.5 % 0.9 - 7.0 % [facility] Erythrocyte distribution width (RBC) [Ratio] 14.7 % 11.0 - 15.0 % [facility] Hematocrit (Bld) [Volume fraction] 42.2 % 36.0 - 48.0 % [facility] Hemoglobin (Bld) [Mass/Vol] 13.9 g/dL 12.0 - 16.0 g/dL [facility] IMMATURE GRANULOCYTES ABS AUTO 0.01 [facility] Immature granulocytes/100 WBC (Bld) 0.1 % 0.0 - 0.5 % [facility] Interpretation and review of laboratory results Abnormal [facility] LYMPHOCYTES ABSOLUTE AUTO 2.5 [facility] Lymphocytes/100 WBC (Bld) 36.5 % 20.5 - 60. 0 % [facility] MCH (RBC) [Entitic mass] 35 pg High 26. 7 - 34.0 pg [facility] MCHC (RBC) [Mass/Vol] 32.9 g/dL 29.9 - 35.2 g/dL [facility] MCV (RBC) [Entitic vol] 106.3 fL High 81.0 - 99.0 fL [facility] MONOCYTES ABSOLUTE AUTO 0.6 N [facility] Monocytes/100 WBC (Bld) 8.4 % 1.7 - 12.0 % [facility] NEUTROPHILS ABSOLUTE AUTO 3.5 [facility] Neutrophils/100 WBC (Bld) 50.9 % 43.0 - 75. 0 % [facility] Platelet mean volume (Bld) [Entitic vol] 10.7 fL 9.5 - 13.5 fL [facility] TBH EO # 0.2 [facility] TB PLT 340 [facility] TBH RBC 3.97 Low [facility] TB WBC 6.8 [facility] ALL CBC WITH AUTO DIFFon BASOPHILS ABSOLUTE AUTO 0.0 N [facility] Basophils/100 WBC (Bld) 0.5 % 0.2 - 2.0 % [facility] Eosinophils/100 WBC (Bld) 3.6 % 0.9 - 7.0 % [facility] Erythrocyte distribution width (RBC) [Ratio] 16.5 % High 11.0 - 15.0 % [facility] Hematocrit (Bld) [Volume fraction] 41.6 % 36.0 - 48.0 % [facility] Hemoglobin (Bld) [Mass/Vol] 14.1 g/dL 12.0 - 16.0 g/dL [facility] IMMATURE GRANULOCYTES ABS AUTO 0.01 [facility] Immature granulocytes/100 WBC (Bld) 0.1 % 0.0 - 0.5 % [facility] Interpretation and review of laboratory results Abnormal [facility] LYMPHOCYTES ABSOLUTE AUTO 2.6 [facility] Lymphocytes/100 WBC (Bld) 36.0 % 20.5 - 60. 0 % [facility] MCH (RBC) [Entitic mass] 34.9 pg High 26. 7 - 34.0 pg [facility] MCHC (RBC) [Mass/Vol] 33.9 g/dL 29.9 - 35.2 g/dL [facility] MCV (RBC) [Entitic vol] 103.0 fL High 81.0 - 99.0 fL [facility] MONOCYTES ABSOLUTE AUTO 0.5 N [facility] Monocytes/100 WBC (Bld) 7.3 % 1.7 - 12.0 % [facility] NEUTROPHILS ABSOLUTE AUTO 3.8 [facility] Neutrophils/100 WBC (Bld) 52.5 % 43.0 - 75. 0 % [facility] Platelet mean volume (Bld) [Entitic vol] 10.5 fL 9.5 - 13.5 fL [facility] EO # 0.3 [facility] TB PLT 315 [facility] RBC 4.04 Low [facility] TB WBC 7.3 [facility] Office Visiton 04-02-2024 Follow-up visit [id number] Lesly Steve 1950 F Date Provider Department Center 04/02/2024 [id number] Family History Family history unknown: Yes Level of Service:11666 [place] OFFICE/OUTPATIENT NEW MODERATE MDM 45 MINUTES Normal [facility] Orders Onlyon 03-29-2024 Orders Only [id number] Lesly Steve Peng 1950 F Date Provider Department Center 03/29/2024 [id number], HISTORICAL CARD [facility] No family history on file Normal [facility] Referrals Officeon Referrals Office [phone] [id number] Normal [facility] Urine Cultureon 03-19-2024 Bacteria identified Cx Nom (U) <9,000 colonies/ml mixed bacterial skin contaminants 2 Days PERFORMED BY: [facility] [address] [place] [address] PATHOLOGIST SEWING MACHINES SALESPERSON AYANA TAY M.D. Normal [facility] Comment on above: Performed By: #### C UU #### [facility] [address] Basophils Auto (Bld) [#/Vol] on 02-09-2024 Basophils (Bld) [#/Vol] 0.0 10 3/uL 0.0-0.1 [facility] Basophils/100 WBC Auto (Bld) on 02-09-2024 Basophils/100 WBC (Bld) 0.3 % 0.2-2.0 [facility] Cholesterol in LDL Calc [Mas s/Vol]on 02-09-2024 Cholesterol in LDL [Mass/Vol] 141.0 mg/dL [facility] Comment on above: <100 mg/dl [id number] 0-129 mg/dl NEAR OR ABOVE [id number] mg/dl BORDERLINE [id number] mg/dl HIGH>190 mg/dl VERY HIGH Cholesterol in VLDL Calc [Ma ss/Vol]on 02-09-2024 Cholesterol in VLDL [Mass/Vol] 25.2 mg/dL [facility] Eosinophils/100 WBC Auto (Bl d)on 02-09-2024 Eosinophils/100 WBC (Bld) 2.7 % 0.9-7.0 [facility] Erythrocyte distribution wid th Auto (RBC) [Ratio]on 02-09-2024 Erythrocyte distribution width (RBC) [Ratio] 14.0 % 11.0-15.0 [facility] Estimated glomerular filtrat ion rate (GFR) non- Americanon 02-09-2024 GFR/1.73 sq M.predicted among non-blacks MDRD (S/P/Bld) [Vol rate/Area] 59 mL/min/{1.73_m2} >=60 [facility] Hematocrit Auto (Bld) [Volum e fraction]on 02-09-2024 Hematocrit (Bld) [Volume fraction] 45.5 % 36.0-48.0 [facility] Hemoglobin [Mass/volume] in Bloodon 02-09-2024 Hemoglobin (Bld) [Mass/Vol] 14.6 g/dL 12.0-16.0 [facility] Laboratory - Chemistry and C hemistry - challengeon 02-09-2024 Calcium [Mass/Vol] 9.6 mg/dL 8.5-10.1 [facility] Chloride [Moles/Vol] 103 mmol/L 98-107 [facility] Cholesterol [Mass/Vol] 200 mg/dL <=200 [facility] Cholesterol in HDL [Mass/Vol] 34 mg/dL 40-60 [facility] Comment on above: > or =60 mg/dl - LOW CARDIOVASCULAR RISK<40 mg/dl - HIGH CARDIOVASCULAR RISK CO2 [Moles/Vol] 26.1 mmol/L 21.0-32.0 [facility] Creatinine [Mass/Vol] 0.93 mg/dL 0.55-1.[address] [facility] GFR/1.73 sq M.predicted MDRD (S/P/Bld) [Vol rate/Area] mL/min/{1.73_m2} >=60 [facility] Glucose [Mass/Vol] 116 mg/dL 74-106 [facility] Potassium [Moles/Vol] 4.2 mmol/L 3.5-5.[address] [facility] Sodium [Moles/Vol] 139 mmol/L 136-145 [facility] Triglyceride [Mass/Vol] 126 mg/dL <=150 [facility] Urea nitrogen [Mass/Vol] 22.0 mg/dL 7.0-18.0 [facility] Urea nitrogen/Creatinine [Mass ratio] 23.7 mg/mg [facility] Laboratory - Hematology and Cell countson 02-09-2024 Immature granulocytes/100 WBC (Bld) 0.3 % 0.0-0.5 [facility] Leukocytes [#/volume] correc dinora for nucleated erythrocytes in Blood by Automated counon 02-09-2024 WBC corrected for nucl RBC Auto (Bld) [#/Vol] 12.2 10 3/uL 4.0-11.0 [facility] Lymphocytes Auto (Bld) [#/Vo l]on 02-09-2024 Lymphocytes (Bld) [#/Vol] 2.0 10 3/uL 1.2-3.8 [facility] Lymphocytes/100 WBC Auto (Bl d)on 02-09-2024 Lymphocytes/100 WBC (Bld) 16.4 % 20.5-60.0 [facility] MCH Auto (RBC) [Entitic mass ]on 02-09-2024 MCH (RBC) [Entitic mass] 29.4 pg 26.7-34.0 [facility] MCHC Auto (RBC) [Mass/Vol]on 02-09-2024 MCHC (RBC) [Mass/Vol] 32.1 g/dL 29.9-35.2 [facility] MCV Auto (RBC) [Entitic vol] on 02-09-2024 MCV (RBC) [Entitic vol] 91.7 fL 81.0-99.0 [facility] Monocytes Auto (Bld) [#/Vol] on 02-09-2024 Monocytes (Bld) [#/Vol] 0.9 10 3/uL 0.3-0.8 [facility] Monocytes/100 WBC Auto (Bld) on 02-09-2024 Monocytes/100 WBC (Bld) 7.7 % 1.7-12.0 [facility] Neutrophils Auto (Bld) [#/Vo l]on 02-09-2024 Neutrophils (Bld) [#/Vol] 8.9 10 3/uL 1.4-6.5 [facility] Neutrophils/100 WBC Auto (Bl d)on 02-09-2024 Neutrophils/100 WBC (Bld) 72.6 % 43.0-75.0 [facility] No Panel Informationon 02-08 Eosinophils # (Auto) 0.3 10 3/uL 0.0-0.[address] [facility] Immature Granulocyte # (Auto) 0.04 10 3/uL 0.00-0.03 [facility] Platelet mean volume Auto (B ld) [Entitic vol]on 02-09-2024 Platelet mean volume (Bld) [Entitic vol] 10.9 fL 9.5-13.5 [facility] Platelets Auto (Bld) [#/Vol] on 02-09-2024 Platelets (Bld) [#/Vol] 546 10 3/uL 150-450 [facility] RBC Auto (Bld) [#/Vol]on RBC (Bld) [#/Vol] 4.96 10 6/uL 4.20-5.40 [facility] Serum or plasma anion gap de terminationon 02-09-2024 Anion gap [Moles/Vol] 14.1 mmol/L [facility] Serum or plasma total choles terol/high density lipoprotein (HDL) cholesterol mass maury 02-09-2024 Cholesterol.total/Cholest janay in HDL [Mass ratio] 5.9 {ratio} [facility] Comment on above: 3.3 - 4.4 LOW RISK4. 4 - 7.1 AVERAGE RISK7.1 - 11.0 MODERATE RISK>11.0 HIGH RISK Automated epithelial cells c ount in urine sediment (number/area)on 02-08-2024 Epithelial cells Auto (Urine sed) [#/Area] MODERATE #/LPF NONE/RARE [facility] Automated leukocytes count i n urine sediment (number/area)on 02-08-2024 WBC Auto (Urine sed) [#/Area] 0-2 #/HPF 0-2 [facility] Automated urine specific gra vity by refractometryon 02-08-2024 Specific gravity Refractometry automated (U) [Rel density] 1.025 1.005-1.025 [facility] Basophils Auto (Bld) [#/Vol] on 02-08-2024 Basophils (Bld) [#/Vol] 0.1 10 3/uL 0.0-0.1 [facility] Basophils/100 WBC Auto (Bld) on 02-08-2024 Basophils/100 WBC (Bld) 0.4 % 0.2-2.0 [facility] Bilirubin Auto test strip (U ) [Mass/Vol]on 02-08-2024 Bilirubin (U) [Mass/Vol] Negative NEGATIVE [facility] Casts typing in urine sedime nt by light microscopyon 02-08-2024 Casts LM Nom (Urine sed) NONE SEEN #/LPF NONE S EEN [facility] Color Auto (U)on 02-08-2024 Color (U) YELLOW YELLOW [facility] Eosinophils/100 WBC Auto (Bl d)on 02-08-2024 Eosinophils/100 WBC (Bld) 1.9 % 0.9-7.0 [facility] Erythrocyte distribution wid th Auto (RBC) [Ratio]on 02-08-2024 Erythrocyte distribution width (RBC) [Ratio] 13.9 % 11.0-15.0 [facility] Estimated glomerular filtrat ion rate (GFR) non- Americanon 02-08-2024 GFR/1.73 sq M.predicted among non-blacks MDRD (S/P/Bld) [Vol rate/Area] 51 mL/min/{1.73_m2} >=60 [facility] Globulin Calc (S) [Mass/Vol] on 02-08-2024 Globulin (S) [Mass/Vol] 3.7 g/dL [facility] Hematocrit Auto (Bld) [Volum e fraction]on 02-08-2024 Hematocrit (Bld) [Volume fraction] 48.8 % 36.0-48.0 [facility] Hemoglobin [Mass/volume] in Bloodon 02-08-2024 Hemoglobin (Bld) [Mass/Vol] 15.8 g/dL 12.0-16.0 [facility] INR in Platelet poor plasma by Coagulation assayon 02-08-2024 INR Coag (PPP) [Relative time] 1.05 {INR} [facility] Comment on above: DESIRED INR:2.0-3.0 CONDITIONS NOT LISTED BELOW2.5-3.5 FOR PROSTHETIC HEART VALVE REPLACEMENT2.5-3.5 RECURRENT THROMBOSIS Ketones Auto test strip (U) [Mass/Vol]on 02-08-2024 Ketones (U) [Mass/Vol] Negative NEGATIVE [facility] - Chemistry and C hemistry - challengeon 02-08-2024 Albumin [Mass/Vol] 4.0 g/dL 3.4-5.0 [facility] ALP [Catalytic activity/Vol] 80 U/L 46-116 [facility] ALT [Catalytic activity/Vol] 25 U/L 14-59 [facility] AST [Catalytic activity/Vol] 31 U/L 15-37 [facility] Bilirubin [Mass/Vol] 0.4 mg/dL 0.2-1.0 [facility] Calcium [Mass/Vol] 9.5 mg/dL 8.5-10.1 [facility] Chloride [Moles/Vol] 100 mmol/L 98-107 [facility] CO2 [Moles/Vol] 28.0 mmol/L 21.0-32.0 [facility] Creatinine [Mass/Vol] 1.06 mg/dL 0.55-1.[address] [facility] GFR/1.73 sq M.predicted MDRD (S/P/Bld) [Vol rate/Area] mL/min/{1.73_m2} >=60 [facility] Glucose [Mass/Vol] 105 mg/dL 74-106 [facility] Potassium [Moles/Vol] 3.7 mmol/L 3.5-5.[address] [facility] Protein [Mass/Vol] 7.7 g/dL 6.4-8.2 [facility] Sodium [Moles/Vol] 137 mmol/L 136-145 [facility] Urea nitrogen [Mass/Vol] 19.0 mg/dL 7.0-18.0 [facility] Urea nitrogen/Creatinine [Mass ratio] 17.9 mg/mg [facility] Laboratory - Hematology and Cell countson 02-08-2024 Immature granulocytes/100 WBC (Bld) 0.2 % 0.0-0.5 [facility] - Microbiology an d Antimicrobial susceptibilityOrdered By: Olga Schwartz on 02-08-2024 Bacteria identified Cx Nom (U) [facility] Leukocytes [#/volume] correc dinora for nucleated erythrocytes in Blood by Automated counon 02-08-2024 WBC corrected for nucl RBC Auto (Bld) [#/Vol] 13.4 10 3/uL 4.0-11.0 [facility] Lymphocytes Auto (Bld) [#/Vo l]on 02-08-2024 Lymphocytes (Bld) [#/Vol] 2.7 10 3/uL 1.2-3.8 [facility] Lymphocytes/100 WBC Auto (Bl d)on 02-08-2024 Lymphocytes/100 WBC (Bld) 20.3 % 20.5-60.0 [facility] MCH Auto (RBC) [Entitic mass ]on 02-08-2024 MCH (RBC) [Entitic mass] 30.2 pg 26.7-34.0 [facility] MCHC Auto (RBC) [Mass/Vol]on 02-08-2024 MCHC (RBC) [Mass/Vol] 32.4 g/dL 29.9-35.2 [facility] MCV Auto (RBC) [Entitic vol] on 02-08-2024 MCV (RBC) [Entitic vol] 93.1 fL 81.0-99.0 [facility] Monocytes Auto (Bld) [#/Vol] on 02-08-2024 Monocytes (Bld) [#/Vol] 1.1 10 3/uL 0.3-0.8 [facility] Monocytes/100 WBC Auto (Bld) on 02-08-2024 Monocytes/100 WBC (Bld) 8.1 % 1.7-12.0 [facility] Mucus LM Ql (Urine sed)on Mucus Ql (Urine sed) TRACE NONE SEEN [facility] Neutrophils Auto (Bld) [#/Vo l]on 02-08-2024 Neutrophils (Bld) [#/Vol] 9.3 10 3/uL 1.4-6.5 [facility] Neutrophils/100 WBC Auto (Bl d)on 02-08-2024 Neutrophils/100 WBC (Bld) 69.1 % 43.0-75.0 [facility] No Panel Informationon 02-07 Urine Culture Reflexed YES [facility] Urine Microscopic Review YES [facility] Eosinophils # (Auto) 0.3 10 3/uL 0.0-0.[address] [facility] Immature Granulocyte # (Auto) 0.03 10 3/uL 0.00-0.03 [facility] Platelet mean volume Auto (B ld) [Entitic vol]on 02-08-2024 Platelet mean volume (Bld) [Entitic vol] 10.5 fL 9.5-13.5 [facility] Platelets Auto (Bld) [#/Vol] on 02-08-2024 Platelets (Bld) [#/Vol] 585 10 3/uL 150-450 [facility] Protein Auto test strip (U) [Mass/Vol]on 02-08-2024 Protein (U) [Mass/Vol] TRACE mg/dL NEG/TRACE [facility] Prothrombin time (PT)on PT Coag (PPP) [Time] 11.1 s 9.0-11.6 [facility] RBC Auto (Bld) [#/Vol]on RBC (Bld) [#/Vol] 5.24 10 6/uL 4.20-5.40 [facility] Serum or plasma albumin/glob ulin mass ratioon 02-08-2024 Albumin/Globulin [Mass ratio] 1.1 {ratio} [facility] Serum or plasma anion gap de terminationon 02-08-2024 Anion gap [Moles/Vol] 12.7 mmol/L [facility] Specific gravity Auto test s trip (U) [Rel density]on 02-08-2024 Specific gravity (U) [Rel density] CLEAR CLEAR [facility] Urine bacteria detection by automated methodon 02-08-2024 Bacteria Auto Ql (U) MODERATE #/HPF NONE SEEN [facility] Urine glucose measurement by test strip (mass/volume)on 02-08-2024 Glucose Test strip (U) [Mass/Vol] Negative NEGATIVE [facility] Urine hemoglobin detection b y automated test stripon 02-08-2024 Hemoglobin Auto test strip Ql (U) Negative NEGATIVE [facility] Urine nitrite detection by a utomated test stripon 02-08-2024 Nitrite Auto test strip Ql (U) SMALL NEGATIVE [facility] Nitrite Auto test strip Ql (U) Negative NEGATIVE [facility] Urine sediment crystal ident ification by light microscopyon 02-08-2024 Crystals LM Nom (Urine sed) None Seen #/HPF None Seen [facility] Urine sediment leukocyte cou nt by microscopy (number/high power field)on 02-08-2024 WBC LM.HPF (Urine sed) [#/Area] 10-20 #/HPF NONE SEEN [facility] Urobilinogen Auto test strip (U) [Mass/Vol]on 02-08-2024 Urobilinogen Qn (U) 0.2 {Toshia'U}/dL 0.2-1.0 [facility] pH Auto test strip (U)on pH (U) 5.5 [pH] 5.0-9.0 [facility] CBC AUTO DIFFon 02-09-2023 BASO # 0.0 103/ul Normal 0.0-0.1 [facility] Comment on above: Performed By: #### C BC #### [facility] [address] [place] [address] Dr. Thierno Phipps Basophils/100 WBC (Bld) 0.4 % Normal 0.2-2.0 [facility] Comment on above: Performed By: #### C BC #### [facility] [address] [place] [address] Dr. Thierno Phipps EO # 0.5 103/ul Normal 0.0-0.7 [facility] Comment on above: Performed By: #### C BC #### [facility] [address] [place] [address] Dr. Thierno Phipps Eosinophils/100 WBC (Bld) 4.8 % Normal 0.9-7.0 [facility] Comment on above: Performed By: #### C BC #### [facility] [address] [place] [address] Dr. Thierno Phipps Erythrocyte distribution width (RBC) [Ratio] 13.2 % Normal 11.0-15.0 [facility] Comment on above: Performed By: #### C BC #### [facility] [address] [address] [address] Thierno Phipps Hematocrit (Bld) [Volume fraction] 48.4 % Critically high 36.0-48.0 [facility] Comment on above: Performed By: #### C BC #### [facility] [address] [place] [address] Dr. Thierno Phipps Hemoglobin (Bld) [Mass/Vol] 15.8 g/dL Normal 12.0-16.0 [facility] Comment on above: Performed By: #### C BC #### [facility] [address] [place] [address] Dr. Thierno Phipps IG # 0.03 10e3/ul Normal 0.00-0.03 [facility] Comment on above: Performed By: #### C BC #### [facility] [address] [place] [address] Dr. Thierno Phipps IG % 0.3 % Normal 0.0-0.5 [facility] Comment on above: Performed By: #### C BC #### [facility] [address] [place] [address] Dr. Thierno Phipps LYMPH # 2.9 103/ul Normal 1.2-3.8 [facility] Comment on above: Performed By: #### C BC #### [facility] [address] [place] [address] Dr. Thierno Phipps Lymphocytes/100 WBC (Bld) 30.1 % Normal 20.5-60.0 [facility] Comment on above: Performed By: #### C BC #### [facility] [address] [place] [address] Dr. Thierno Phipps MANUAL DIFF REQ NO Normal [facility] Comment on above: Performed By: #### C BC #### [facility] [address] [place] [address] Dr. Thierno Phipps MCH (RBC) [Entitic mass] 29.6 pg Normal 26.7-34.0 [facility] Comment on above: Performed By: #### C BC #### [facility] [address] [address] [address] Thierno Phipps MCHC (RBC) [Mass/Vol] 32.6 g/dL Normal 29.9-35.2 [facility] Comment on above: Performed By: #### C BC #### [facility] [address] [address] [address] Thierno Phipps MCV (RBC) [Entitic vol] 90.8 fL Normal 81.0-99.0 [facility] Comment on above: Performed By: #### C BC #### [facility] [address] [address] [address] Thierno Phipps MONO # 0.8 103/ul Normal 0.3-0.8 [facility] Comment on above: Performed By: #### C BC #### [facility] [address] [address] [address] Thierno Phipps Monocytes/100 WBC (Bld) 8.2 % Normal 1.7-12.0 [facility] Comment on above: Performed By: #### C BC #### [facility] [address] [address] [address] Thierno Phipps NEUT # 5.4 103/ul Normal 1.4-6.5 [facility] Comment on above: Performed By: #### C BC #### [facility] [address] [address] [address] Thierno Phipps Neutrophils/100 WBC (Bld) 56.2 % Normal 43.0-75.0 [facility] Comment on above: Performed By: #### C BC #### [facility] [address] [address] [address] Thierno Phipps Platelet mean volume (Bld) [Entitic vol] 10.4 fL Normal 9.5-13.5 [facility] Comment on above: Performed By: #### C BC #### [facility] [address] [address] [address] Thierno Phipps PLT 626 103/ul Critically high 150-450 [facility] Comment on above: Performed By: #### C BC #### [facility] [address] [address] [address] Thierno Phipps RBC 5.33 106/ul Normal 4.20-5.40 [facility] Comment on above: Performed By: #### C BC #### [facility] [address] [address] [address] Thierno Phipps WBC 9.6 103/ul Normal 4.0-11.0 [facility] Comment on above: Performed By: #### C BC #### [facility] [address] [address] [address] Thierno Phipps LIPID PROFILEon 02-09-2023 CHOL-HDL RATIO NORM SEE BELOW Normal [facility] Comment on above: Result Comment: 3.3 - 4.4 LOW RISK 4.4 - 7.1 AVERAGE RISK 7.1 - 11.0 MODERATE RISK >11.0 HIGH RISK Performed By: #### L IPID, CMP #### [facility] [address] [address] [address] Thierno Phipps Cholesterol [Mass/Vol] 267 mg/dL Critically high <=200 [facility] Comment on above: Performed By: #### L IPID, CMP #### [facility] [address] [place] [address] Dr. Thierno Phipps Cholesterol in HDL [Mass/Vol] 35 mg/dL Critically low 40-60 [facility] Comment on above: Performed By: #### L IPID, CMP #### [facility] [address] [address] [address] Thierno Phipps Cholesterol in LDL [Mass/Vol] 186.0 mg/dL Normal [facility] Comment on above: Performed By: #### L IPID, CMP #### [facility] [address] [address] [address] Thierno Phipps Cholesterol.total/Cholest janay in HDL [Mass ratio] 7.6 {ratio} Normal [facility] Comment on above: Performed By: #### L IPID, CMP #### [facility] [address] [address] [address] Thierno Phipps HDL NORMAL > or = 60 mg/dl - LOW CARDIOVASCULAR RISK <40 mg/dl - HIGH CARDIOVASCULAR RISK Normal [facility] Comment on above: Performed By: #### L IPID, CMP #### [facility] [address] [address] [address] Thierno Phipps LDL CALC NORMAL SEE BELOW Normal [facility] Comment on above: Result Comment: <100 mg/dl OPTIMAL 100 - 129 mg/dl NEAR OR ABOVE OPTIMAL 130 - 159 mg/dl BORDERLINE HIGH 160 - 189 mg/dl HIGH >190 mg/dl VERY HIGH Performed By: #### L IPID, CMP #### [facility] [address] [address] [address] Thierno Phipps Triglyceride [Mass/Vol] 230 mg/dL Critically high <=150 [facility] Comment on above: Performed By: #### L IPID, CMP #### [facility] [address] [address] [address] Thierno Phipps VLDL CALC 46.0 mg/dL Normal [facility] Comment on above: Performed By: #### L IPID, CMP #### [facility] [address] [place] [address] Dr. Thierno Phipps MICROALBUMIN, RAND URon 04-0 mALB <1.3 Normal <=30.0 [facility] Comment on above: Performed By: #### M ALBR #### [facility] [address] [place] [address] Dr. Thierno Phipps PROF 14(COMP METB)on 023 Albumin [Mass/Vol] 4.0 g/dL Normal 3.4-5.0 [facility] Comment on above: Performed By: #### L IPID, CMP #### [facility] [address] [address] [address] Thierno Phipps Albumin/Globulin [Mass ratio] 1.0 {ratio} Normal [facility] Comment on above: Performed By: #### L IPID, CMP #### [facility] [address] [address] [address] Thierno Phipps ALP [Catalytic activity/Vol] 93 U/L Normal 46-116 [facility] Comment on above: Performed By: #### L IPID, CMP #### [facility] [address] [address] [address] Thierno Phipps ALT [Catalytic activity/Vol] 30 U/L Normal 14-59 [facility] Comment on above: Performed By: #### L IPID, CMP #### [facility] [address] [address] [address] Thierno Phipps Anion gap [Moles/Vol] 7.9 mmol/L Normal [facility] Comment on above: Performed By: #### L IPID, CMP #### [facility] [address] [address] [address] Thierno Phipps AST [Catalytic activity/Vol] 18 U/L Normal 15-37 [facility] Comment on above: Performed By: #### L IPID, CMP #### [facility] [address] [address] [address] Thierno Phipps Bilirubin [Mass/Vol] 0.4 mg/dL Normal 0.2-1.0 [facility] Comment on above: Performed By: #### L IPID, CMP #### [facility] [address] [address] [address] Thierno Phipps Calcium [Mass/Vol] 10.0 mg/dL Normal 8.5-10.1 [facility] Comment on above: Performed By: #### L IPID, CMP #### [facility] [address] [address] [address] Thierno Phipps Chloride [Moles/Vol] 101 mmol/L Normal 98-107 [facility] Comment on above: Performed By: #### L IPID, CMP #### [facility] [address] [address] [address] Thierno Phipps CO2 [Moles/Vol] 32.9 mmol/L Critically high 21.0-32.0 [facility] Comment on above: Performed By: #### L IPID, CMP #### [facility] [address] [address] [address] Thierno Phipps Creatinine [Mass/Vol] 0.97 mg/dL Normal 0.55-1.02 [facility] Comment on above: Performed By: #### L IPID, CMP #### [facility] [address] [address] [address] Thierno Phipps EGFR-AF CYMRO >60 Normal >=60 [facility] Comment on above: Performed By: #### L IPID, CMP #### [facility] [address] [address] [address] Thierno Phipps EGFR-NON AF CYMRO 56 mL/min/1.73m2 Critically low >=60 [facility] Comment on above: Performed By: #### L IPID, CMP #### [facility] [address] [address] [address] Thierno Phipps Globulin (S) [Mass/Vol] 4.0 g/dL Normal [facility] Comment on above: Performed By: #### L IPID, CMP #### [facility] [address] [address] [address] Thierno Phipps Glucose [Mass/Vol] 119 mg/dL Critically high 74-106 [facility] Comment on above: Performed By: #### L IPID, CMP #### [facility] [address] [address] [address] Thierno Phipps Potassium [Moles/Vol] 3.8 mmol/L Normal 3.5-5.1 [facility] Comment on above: Performed By: #### L IPID, CMP #### [facility] [address] [address] [address] Thierno Phipps Protein [Mass/Vol] 8.0 g/dL Normal 6.4-8.2 [facility] Comment on above: Performed By: #### L IPID, CMP #### [facility] [address] [address] [address] Thierno Phipps Sodium [Moles/Vol] 138 mmol/L Normal 136-145 [facility] Comment on above: Performed By: #### L IPID, CMP #### [facility] [address] [address] [address] Thierno Phipps Urea nitrogen [Mass/Vol] 14.0 mg/dL Normal 7.0-18.0 [facility] Comment on above: Performed By: #### L IPID, CMP #### [facility] [address] [address] [address] Thierno Phipps Urea nitrogen/Creatinine [Mass ratio] 14.4 mg/mg Normal [facility] Comment on above: Performed By: #### L IPID, CMP #### [facility] [address] [address] [address] Thierno Phipps XR LSPINE 2_3 VIEWSon [...] by: RAIN HOWE Date: 2022-10-19 21:47 Normal [facility] XR HIP RT 2 3V W PELVISon [...] by: CHAITANYA DAVIS Date: 2022-10-18 16:56 Normal [facility] CT LUNG CANCER SCREENINGon 0 05-17-2022 CT [...] by: CHAITANYA CROCKER Date: 2022-05-17 15:19 Normal [facility] XR CHEST 2 Von 04-13-2022 XR CHEST [...] CUETO Date: 2022-04-13 13:32 Normal [facility] XR KUB 1 VIEWon 04-13-2022 XR KUB [...] CROCKER Date: 2022-04-13 17:20 Normal [facility] Vital Signs Date Time Vital Sign Value Performing Clinician Facility 02-13-2024 11:27-0400 Body height 160.02 cm [facility] 02-13-2024 11:27-0400 Body mass index (BMI) [Ratio] 22.4 kg/m2 [facility] 02-13-2024 11:27-0400 Body weight 57.6 kg [facility] 02-13-2024 11:27-0400 Diastolic blood pressure 53 mm[Hg] [facility] 02-13-2024 11:27-0400 Heart rate 60 /min [facility] 02-13-2024 11:27-0400 Systolic blood pressure 89 mm[Hg] [facility] 08-14-2023 15:00-0400 Body height 160.02 cm Olga Schwartz Other [facility] [employer] Other 08-14-2023 15:00-0400 Body mass index (BMI) [Ratio] 24.37 kg/m2 Olga Schwartz Other [employer] Other 08-14-2023 15:00-0400 Body weight 62.42 kg Olga Schwartz Other [employer] Other 08-14-2023 15:00-0400 Diastolic blood pressure 69 mm[Hg] Olga Schwartz Other [employer] Other 08-14-2023 15:00-0400 Systolic blood pressure 107 mm[Hg] Olga Schwartz Other [employer] Other 05-16-2023 14:00-0400 Body height 160.02 cm Olga Schwartz Other [employer] Other 05-16-2023 14:00-0400 Body mass index (BMI) [Ratio] 24.8 kg/m2 Olga Schwartz Other [employer] Other 05-16-2023 14:00-0400 Body weight 63.5 kg Olga Schwartz Other [employer] Other 05-16-2023 14:00-0400 Diastolic blood pressure 65 mm[Hg] Olga Schwartz Other [employer] Other 05-16-2023 14:00-0400 Systolic blood pressure 119 mm[Hg] Olga Schwartz Other [employer] Other 02-07-2023 16:00-0400 Body height 160.02 cm Olga Schwartz Other [employer] Other 02-07-2023 16:00-0400 Body mass index (BMI) [Ratio] 25.33 kg/m2 Olga Schwartz Other [employer] Other 02-07-2023 16:00-0400 Body weight 64.86 kg Olga Schwartz Other [employer] Other 02-07-2023 16:00-0400 Diastolic blood pressure 82 mm[Hg] Olga Schwartz Other [employer] Other 02-07-2023 16:00-0400 SaO2% (BldA) [Mass fraction] 97 % Olga Schwartz Other [employer] Other 02-07-2023 16:00-0400 Systolic blood pressure 124 mm[Hg] Olga Schwartz Other [employer] Other Encounters Encounter Date Encounter Type Care Provider Facility Start: 09-11-2024 End: 09-11-2024 Refill Dot Figueroa [facility] Comment on above: Lumbar back pain Start: 09-09-2024 End: 09-16-2024 Orders Only Keira Church [employer] Work Phone: [facility] Comment on above: Type 2 diabetes jennifer itus with chronic kidney disease, without long-term current use of insulin, unspecified CKD stage (CMS/HCC) (Primary Dx) Start: 09-03-2024 End: 09-03-2024 Clinisync Result Encounter Keira Haleypatrick [employer] Work Phone: [facility] External Department Unsolicited Start: 09-03-2024 End: 09-03-2024 Clinisync Result Encounter Keira Barlowzpatrick [employer] Work Phone: [facility] External Department Unsolicited Start: 09-03-2024 End: 09-03-2024 Refill Keira Barlowzpatrick [employer] Work Phone: [facility] Comment on above: Restless leg syndrom e Start: 08-13-2024 End: 08-13-2024 Clinisync Result Encounter Generic External Data Provider [facility] External Department Unsolicited Start: 08-13-2024 End: 08-13-2024 Clinisync Result Encounter Generic External Data Provider [facility] External Department Unsolicited Start: 08-06-2024 End: 08-12-2024 Refill Keira Coytrick EMBROIDERY PATTERNMAKER Work Phone: [facility] Comment on above: Lumbar back pain (Pr imary Dx); Hyperlipidemia, unspecified hyperlipidemia type (CMS/HCC); Essential (primary) hypertension (CMS/HCC); Restless leg syndrome; Cerebrovascular accident (CVA), unspecified mechanism (CMS/HCC) Start: 07-24-2024 End: 07-24-2024 ambulatory KEIRA CHURCH Not Available Start: 07-24-2024 Patient encounter status Keira Barlowzpatrick EMBROIDERY PATTERNMAKER Work Phone: [facility] Start: 04-30-2024 End: 04-30-2024 ambulatory NESTOR IVERSON Not Available Start: 04-02-2024 End: 04-02-2024 ambulatory [facility] Start: 03-26-2024 ambulatory Neto Hooper [place] [place] Start: 03-25-2024 End: 03-25-2024 ambulatory DAWIT HOWARD Not Available Start: 03-19-2024 End: 03-19-2024 ambulatory Olga Schwartz Facility:[facility] Start: 02-13-2024 End: 02-13-2024 ambulatory [facility] Work Phone: Start: 02-13-2024 End: 02-13-2024 Patient encounter procedure [facility] Work Phone: Start: 02-12-2024 ambulatory [facility] Start: 02-12-2024 ambulatory [facility] Start: 02-09-2024 Non-patient / Non-visit [facility] Work Phone: Start: 02-08-2024 End: 02-11-2024 Emergency department patient visit [facility] Start: 02-08-2024 Non-patient / Non-visit [facility] Work Phone: Start: 01-15-2024 Non-patient / Non-visit [facility] Work Phone: Start: 12-22-2023 Non-patient / Non-visit [facility] Work Phone: Start: 10-24-2023 End: 10-24-2023 ambulatory Olga Schwartz Other [employer] Other Start: 10-24-2023 Telephone encounter Olga Schwartz [facility] Start: 09-22-2023 End: 09-22-2023 ambulatory Olga Schwartz Other [employer] Other Start: 09-22-2023 Telephone encounter Olga Schwartz [facility] Start: 08-23-2023 End: 08-23-2023 ambulatory Olga Schwartz Other [employer] Other Start: 08-23-2023 Telephone encounter Loga Efren [facility] Start: 08-14-2023 End: 08-14-2023 ambulatory Olga Schwartz Other [employer] Other Start: 08-14-2023 Office outpatient vi sit 15 minutes Olga Schwartz [facility] Start: 08-14-2023 Telephone encounter Olga Schwartz [facility] Start: 07-24-2023 End: 07-24-2023 ambulatory Olga Schwartz Other [employer] Other Start: 07-24-2023 Telephone encounter Olga Efren [facility] Start: 06-23-2023 End: 06-23-2023 ambulatory Olga Schwartz Other [employer] Other Start: 06-23-2023 Telephone encounter Olga Schwartz [facility] Start: 06-12-2023 End: 06-12-2023 ambulatory Olga Schwartz Other [employer] Other Start: 06-12-2023 Telephone encounter Olga Efren [facility] Start: 05-16-2023 End: 05-16-2023 ambulatory Olga Schwartz Other [employer] Other Start: 05-16-2023 Office outpatient vi sit 15 minutes Olga Schwartz [facility] Start: 02-24-2023 End: 02-24-2023 ambulatory Olga Schwartz Other [employer] Other Start: 02-24-2023 Telephone encounter Olga Efren [facility] Start: 02-13-2023 End: 02-13-2023 ambulatory Fernando Silverio Other [employer] Other Start: 02-13-2023 Telephone encounter Olga Schwartz [facility] Start: 02-09-2023 End: 02-10-[address] OLGA SCHWARTZ Facility: Start: 02-07-2023 End: 02-07-2023 ambulatory Olga Schwartz Other [employer] Other Start: 02-07-2023 Office outpatient vi sit 25 minutes Olga Schwartz [facility] Start: 10-18-2022 End: 10-19-[address] OLGA SCHWARTZ Facility:[facility] Start: 10-14-2022 Pre-procedure evaluation check Olga Schwartz Other [employer] Other Start: 05-17-2022 End: 05-18-[address] OLGA SCHWARTZ Facility:[facility] Start: 04-13-2022 End: 04-14-[address] OLGA SCHWARTZ Facility:[facility] Procedures Date Procedure Procedure Detail Performing Clinician Start: 09-03-2024 ALL CBC WITH AUTO DIFF Keira Church EMBROIDERY PATTERNMAKER Work Phone: Start: 08-13-2024 ALL CBC WITH AUTO DIFF Generic External Data Provider Start: 07-24-2024 H/O: artificial joint Presence of right artificial shoulder joint Keira Church EMBROIDERY PATTERNMAKER Work Phone: Start: 02-08-2024 Bacteria identified in Urine by Culture Start: 11-22-2018 Screening for malign ant neoplasm of cervix Olga Schwartz Other Plan of Treatment Date Care Activity Detail Author Start: 07-24-2025 Medicare Annual Wellness (AWV) Medicare Annual Wellness (AWV) [facility] Start: 09-23-2024 End: 09-23-2024 Patient encounter procedure 09/23/2024 2:30 PM EST Office Visit [facility] [address] [place] [address] Keira Church NP [address] [place] [address] [facility] Start: 08-20-2024 End: 08-20-2024 Patient encounter procedure 08/20/2024 2:40 PM EDT Office Visit [facility] [address] [place] [phone] Nestor Iverson NP [address] [place] [address] [facility] [address] Start: 07-07-2024 Influenza vaccination Influenza Vaccine (#1) [facility] Start: 02-13-2024 Patient referral [facility] Work Phone: Start: 11-12-2014 Pneumococcal Vaccine: 65+ Years (2 of 2 - PCV) Pneumococcal Vaccine: 65+ Years (2 of 2 - PCV) [facility] Patient referral [facility] Work Phone: Immunizations Immunization Date Immunization Notes Care Provider Fa cili 07-17-2023 influenza virus vaccine, unspecified formulation Keira Church NP Work Phone: [facility] 08-10-2022 influenza virus vaccine, split virus (incl. purified surface antigen) Olga Schwartz Other [employer] Other 08-10-2022 influenza virus vaccine, unspecified formulation [facility] Payers Date Payer Category Payer Medicare [facility]AGE [facility] MEDIC[facility] ADVANTAGE [id number] 2023-Present [address] [place] [address] [id number] 2023 Medicare (Managed Care) [facility] [id number] 2018 Medicaid [id number] 1959 Medicaid [id number] 1959 Medicare [id number] 1948 Unknown [id number] 2.16.840.1.400097.3.579.2. 593 1950 Unknown [id number] [id number]. 593 1950 Unknown [id number] 2.16.840.1.721568.3.579.2. 593 1948 Unknown [id number] 2.16.840.1.208220.3.579.2. 593 1948 Unknown [id number] 2.16.840.1.917610.3.579.2. 1286 1948 Unknown [id number] 2.16.840.1.888519.3.579.2. 1286 1948 Unknown [id number] 2.16.840.1.554746.3.579.2. 1286 1948 Unknown [id number] 2.16.840.1.860394.3.579.2. 1259 1950 Unknown [id number] 2.16.840.1.083399.3.579.2. 1259 1950 Unknown [id number] [id number]. 1259 Social History Date Type Detail Facility Unknown if ever smoked [facility] [employer] Other Start: 07-24-2024 Sex Assigned At N [facility] [employer] Other Start: 1950 Sex Assigned At Female [facility] Start: 07-24-2024 Tobacco smoking stat us NHIS Smokes tobacco daily [facility] History of tobacco use Cigarette Smoker [facility] History of tobacco use Passive smoker [facility] Start: 07-24-2024 Alcoholic beverage intake Lifetime non-drinker (finding) [facility] Start: 07-24-2024 History of [address] [facility] Start: 1950 Sex assigned at Not on file N [facility] Clinical Notes 02-07-2023 to 09-11-2024 Telephone Encounter - Dot Figueroa MA - 09/11/2024 10:08 AM ESTTelephone Encounter - Dot Figueroa MA - 09/11/2024 10:08 AM EST Note Date & Type Note Facility 09-11-2024 Telephone encounter Note MARILIN:07/24/2024 NOV:09/24/2024 [facility] 09-11-2024 Miscellaneous Notes MARILIN:07/24/2024 NOV:09/24/2024 documented in this encounter [facility] 04-02-2024 Note [facility] Cardiology Clinic Note Chief Complaint: New patient here to establish care. Ref from Dr. Schwartz for bradycardia. She had stroke last month and was admitted to [facility]. Still smokes almost 1 PPD but is trying to cut back. Says she's had mitral valve prolapse forever . Does feel palpitations at times. Thinks she used to see cardiology in [place] years ago. Denies chest pain, SOB, and [...] year ago. 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 She agrees she needs a colonoscopy due to ongoing blood in her stool and LLQ pain. Agrees to referral to Dr. Stevenson. Aug, Hematochezia (ICD-10 - K92.1) as above [employer] Other 04-06-2023 NotePROCEDURE: XR HIP LT 2 [...] Electronically authenticated by: RAIN HOWE Date: 2023-02-09 11:04[facility]04-04-2023 Evaluation note* Encounter Date Diagnosis Assessment Notes [...] OARRS and reviewed pain contract brii Grace. [employer] Other Evaluation noteNo InformationNocarondelet health [employer] Other Evaluation noteNoHotDog Systems [employer] Other Evaluation note* Diagnosis Onset Date Resolution Status Seizure acute Stroke acute [facility] Work Phone: Evaluation note* Diagnosis Lumbar back pain- Primary Lumbago Hyperlipidemia, unspecified hyperlipidemia type (CMS/HCC) Essential (primary) hypertension (CMS/HCC) Unspecified essential hypertension Restless leg syndrome Restless legs syndrome (RLS) Cerebrovascular accident (CVA), unspecified mechanism (CMS/HCC) documented [facility] Diagnosis Essential (primary) hypertension (CMS/HCC)- Primary Unspecified essential hypertension Mixed hyperlipidemia (CMS/HCC) Mixed hyperlipidemia Nicotine dependence, cigarettes, uncomplicated Cerebrovascular accident (CVA), unspecified mechanism (CMS/HCC) Restless leg syndrome Restless legs syndrome (RLS) documented in this encounter [facility]* Diagnosis Essential (primary) hypertension (CMS/HCC)- Primary Unspecified essential hypertension Mixed hyperlipidemia (CMS/HCC) Mixed hyperlipidemia Nicotine dependence, cigarettes, uncomplicated Cerebrovascular accident (CVA), unspecified mechanism (CMS/HCC) Lumbar back pain Lumbago documented in [facility] encounter [facility] Diagnosis Essential (primary) hypertension (CMS/HCC)- Primary Unspecified essential hypertension Mixed hyperlipidemia (CMS/HCC) Mixed hyperlipidemia Nicotine dependence, cigarettes, uncomplicated Cerebrovascular accident (CVA), unspecified mechanism (CMS/HCC) Type 2 diabetes mellitus with chronic kidney disease, without long-term current use of insulin, unspecified CKD stage (CMS/HCC)- Primary documented in this encounter [facility] HealthcareHistory general [...] HAND RECONSTRUCTION Hospitalization History SEE SURGICAL HX [facility] [employer] Other History general Narrative - [facility] [employer] Other Hospital Discharge instructionsAmbulatory Orders* Referral to Neurology Time Frame: 02/13/24, Location: None [facility] Work Phone: Summary Purpose Family History Relationship Condition Age at Onset Recorded Date/T sam father Unknown Not Specified Unknown Advance Directives Advance Directive Response Recorded Date/ Time Advance Directives No February 12 10:17am Reason for Referral Reason Needs colonosco py - had imaging in [facility] ER. Diagnosis 1 LLQ abdominal pain ( R10.32) Referral Organization [facility] Referring Provider First Name Olga Referring Provider Last Name Efren Referring Provider Specialty Family [facility] Referred Organization [facility] Referred Provider Flakito Stevenson Referred Address [address], [place],[address] Referred Provider Specialty General Surg glen Referral Priority Routine General Notes Maida Dave 02:01:18 PM >received today, attachments made, waiting for notes to be locked Chief Complaint and Reason for Visit Chief Complaint Amb Documentation Amb Documentation [facility] d/c Reason for Visit Seizure Stroke Additional Source Comments REASON FOR VISIT (unrecogniz ed section and content) Reason Onset Date Comments Med Refill 08/06/2024 Reason Comments Med Change Request Reason Onset Date Comments Med Refill 09/11/2024 INFORMATION SOURCE (unrecogn ized section and content) DATE CREATED AUTHOR 02/18/2023 [facility] DATE CREATED AUTHOR AUTHOR'S ORGANIZ ATION 02/13/2024 [facility] DATE CREATED AUTHOR AUTHOR'S ORGANIZ ATION 02/15/2024 [facility] DATE CREATED AUTHOR AUTHOR'S ORGANIZ ATION 03/24/2024 [facility] DATE CREATED AUTHOR AUTHOR'S ORGANIZ ATION 03/28/2024 [facility] DATE CREATED AUTHOR AUTHOR'S ORGANIZ ATION 04/03/2024 [facility] DATE CREATED AUTHOR AUTHOR'S ORGANIZ ATION 07/27/2024 [facility] dical Specialists EPIC Care Teams (unrecognized [...] February 13, 2024 End: February 13, 2024 Embroidery Operator Relationship Specialty Start Date End Date Olga Schwartz MD [address] [place] [phone] PCP - General Family Medicine 03/25/24 Embroidery Operator Relationship Specialty Start Date End Date Olga Schwartz MD [address] [place] [phone] PCP - General Family Medicine 03/25/24 Embroidery Operator Relationship Specialty Start Date End Date Etahn Bonilla MD [address] [place] [address] PCP - General Family Medicine 08/15/24 Keira Church NP [address] [place], [place] [address] Nurse Practitioner Family Medicine 08/15/24 Embroidery Operator Relationship Specialty Start Date End Date Ethan Bonilla MD [address] [place] [phone] PCP - General Family Medicine 08/15/24 Keira Church NP [address] [place], [place] [address] Nurse Practitioner Family Medicine 08/15/24 Embroidery Operator Relationship Specialty Start Date End Date Ethan Bonilla MD [address] [place], [place] [phone] PCP - General Family Medicine 08/15/24 Keira Church NP [address] [place] [address] Nurse Practitioner Family Medicine 08/15/24 Embroidery Operator Relationship Specialty Start Date End Date Ethan Bonilla MD [address] [place] [phone] PCP - General Family Medicine 08/15/24 Keira Church NP [address] [place], [place] [address] Nurse Practitioner Family Medicine 08/15/24 Goals (unrecognized section and content) Goals may [...] BE BASED ON THE PRIMARY CLINICAL RECORDS. [facility] [employer] [facility]. provides no warranty or guarantee of the accuracy or completeness of information in this document.
--- NOTE | 2024-09-21 12:55 | ECG_ITS ---
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
--- NOTE | 2024-09-21 12:55 | CT_ITS ---
[facility] [place] [id number] Patient Name: MATEO MANSFIELD MRN: [id number] date: 1950 Sex: F Assigned Patient Location: ER Current Patient Location: ER Accession/Order Number: [id number] Exam Date: 09/21/2024 12:59 Report Date: 09/21/2024 13:18 At the request of: TONYA CARCAMO Procedure: CT stroke head/brain wo con HEAD CT WITHOUT CONTRAST: 09/21/2024 12:59 PM EST Clinical Data: possible stroke Comparison: 02/08/2024 Unenhanced axial data from base to vertex. INTRA-AXIAL: No acute hemorrhage. No acute infarction is evident. EXTRA-AXIAL: No acute hemorrhage. No focal fluid collection. BRAIN VOLUME: No interval change. Again, modest frontal atrophy. VENTRICLES: No hydrocephalus PARANASAL SINUSES: No air-fluid levels in the included aspects. MASTOIDS: Clear. CALVARIUM: No acute finding. EXTRACALVARIAL: No acute findings CT/CT stroke head/brain wo con IMPRESSION: 1. No evidence of acute intracranial process on this unenhanced study as described. All CT scans at this facility use dose modulation, iterative reconstruction, and/or weight based dosing when appropriate to reduce radiation dose to as low as reasonably achievable. Electronically authenticated by: MAYCO RENDON Date: 09/21/2024 13:18
[2024-09-21 13:03] LABS: Basophils Percent Auto 0.4 % (0.2-2.0); Eosinophils Absolute Auto 0.3 10^3/uL (0.0-0.7); Eosinophils Percent Auto 3.3 % (0.9-7.0); Hematocrit 42.9 % (36.0-48.0); Hemoglobin 14.4 g/dL (12.0-16.0); Immature Granulocytes Abs Auto 0.03 10^3/uL (0.00-0.03); Immature Granulocytes Pct Auto 0.3 % (0.0-0.5); Lymphocytes Absolute Auto 2.5 10^3/uL (1.2-3.8); Lymphocytes Percent Auto 25.4 % (20.5-60.0); Mean Corpuscular HGB Conc 33.6 g/dL (29.9-35.2); Mean Corpuscular Hemoglobin 35.6 pg (26.7-34.0); Mean Platelet Volume 11.3 fL (9.5-13.5); Monocytes Absolute Auto 0.8 10^3/uL (0.3-0.8); Monocytes Percent Auto 8.3 % (1.7-12.0); Neutrophils Percent Auto 62.3 % (43.0-75.0); Platelet Count 310 10^3/uL (150-450); Red Blood Count 4.04 10^6/uL (4.20-5.40); Red Cell Distribution Width 13.1 % (11.0-15.0); White Blood Count 9.7 10^3/uL (4.0-11.0)
[2024-09-21 13:18] LABS: INR 1.05; Prothrombin Time 11.1 sec (9.0-11.6)
[2024-09-21 13:19] LABS: Alanine Aminotransferase 25 U/L (14-59); Albumin Globulin Ratio 1.1; Alkaline Phosphatase 91 U/L (46-116); Anion Gap 16.2; Aspartate Amino Transferase 25 U/L (15-37); BUN Creatinine Ratio 18.9; Bilirubin Total 0.7 mg/dL (0.2-1.0); Calcium 9.5 mg/dL (8.5-10.1); Carbon Dioxide 28.7 mmol/L (21.0-32.0); Chloride 98 mmol/L (98-107); Estimated GFR (African America 47 (>=60 mL/min/1.73m^2); Estimated GFR (Non-African Ame 39 (>=60 mL/min/1.73m^2); Globulin 3.5 g/dL; Glucose 119 mg/dL (74-106); Mean Corpuscular Volume 106.2 fL (81.0-99.0); Potassium 3.9 mmol/L (3.5-5.1); Sodium 139 mmol/L (136-145); Total Protein 7.5 g/dL (6.4-8.2)
--- NOTE | 2024-09-21 15:18 | ED.EXTPRO1 ---
HPI - Extremity Problem General Chief complaint: Extremity Problem, Nontraumatic Stated complaint: CVA SYMPTOMS Time Seen by Provider: 09/21/24 12:35 Source: patient Mode of arrival: walk-in History of Present Illness HPI Narrative: The patient have a history of stroke he came today because last night she went to sleep at the recliner when she woke up she feels like she have a cramp in her left side of the hand as well as the left leg, this cramp resolved today but she was worried that she came because she thought maybe this is a stroke Patient denies any headache she is already feeling better she have no weakness in the left upper extremity and she has no problem ambulating Related Data Home Medications ?Medication ?Instructions ?Recorded ?Confirmed alprazolam 1 mg tablet 1 mg PO BID PRN anxiety 06/10/23 09/21/24 gabapentin 300 mg capsule 300 mg PO DAILY 06/10/23 09/21/24 latanoprost 0.005 % eye drops 1 drp ophthalmic (eye) .hs 06/10/23 09/21/24 levetiracetam 500 mg tablet 500 mg PO BID 06/10/23 09/21/24 metoprolol tartrate 25 mg tablet 25 mg PO BID 06/10/23 09/21/24 oxybutynin chloride 5 mg tablet 5 mg PO BID 06/10/23 09/21/24 oxycodone-acetaminophen 7.5 mg-325 2 tab PO DAILY PRN pain 06/10/23 09/21/24 mg tablet simvastatin 40 mg tablet 40 mg PO DAILY 06/10/23 09/21/24 ropinirole 0.5 mg tablet 0.5 mg PO .at bedtime 02/08/24 09/21/24 venlafaxine 37.5 mg 37.5 mg PO DAILY 02/08/24 09/21/24 capsule,extended release 24 hr dapagliflozin propanediol 5 mg 5 mg PO DAILY 09/21/24 09/21/24 tablet (Farxiga) hydroxyurea 500 mg capsule 500 mg PO DAILY 09/21/24 09/21/24 Previous Rx's ?Medication ?Instructions ?Recorded diphenhydramine HCl 25 mg capsule 25 mg PO Q8H PRN itching #20 caps 06/10/23 (Benadryl) famotidine 20 mg tablet (Pepcid) 20 mg PO DAILY #10 tabs 06/10/23 aspirin 325 mg tablet 325 mg PO QD #30 tabs 02/09/24 atorvastatin 20 mg tablet 20 mg PO QHS #30 tabs 02/09/24 Allergies Allergy/AdvReac Type Severity Reaction Status Date / Time Penicillins Allergy Severe Hives Verified 02/08/24 13:34 phenobarbital Allergy Severe Hives Verified 02/08/24 13:34 phenytoin (From Dilantin) Allergy Severe Hives Verified 02/08/24 13:34 luis Allergy Severe Redness of Uncoded 02/08/24 13:34 Skin Review of Systems ROS Status of ROS 10 or more systems reviewed and unremarkable except as noted in history and below [facility] Medical History (Updated 09/21/24 @ 13:47 by Krystina Leal MD) Dysarthria ?R47.1 - Dysarthria and anarthria (ICD-10) Pancreatitis ?K85.90 - Acute pancreatitis without necrosis or infection, unspecified (ICD-10) Glaucoma ?H40.9 - Unspecified glaucoma (ICD-10) Arthritis ?M19.90 - Unspecified osteoarthritis, unspecified site (ICD-10) Osteoporosis ?M81.0 - Age-related osteoporosis without current pathological fracture (ICD-10) Hypercholesteremia ?E78.00 - Pure hypercholesterolemia, unspecified (ICD-10) Hypertension ?I10 - Essential (primary) hypertension (ICD-10) Seizure ?R56.9 - Unspecified convulsions (ICD-10) Surgical History (Updated 02/08/24 @ 16:26 by Lisa Forrester RN) H/O: hysterectomy ?Z90.710 - Acquired absence of both cervix and uterus (ICD-10) H/O cervical spinal arthrodesis ?Z98.1 - Arthrodesis status (ICD-10) History of left hip replacement ?Z96.642 - Presence of left artificial hip joint (ICD-10) Family History (Updated 02/08/24 @ 16:28 by Lisa Forrester RN) Mother Family history of cancer Family history of diabetes mellitus Grandmother Family history of diabetes mellitus Brother Family history of myocardial infarction Family history of hypertension Social History (Updated 02/08/24 @ 16:28 by Lisa Forrester RN) Within the past year, how often did you have a drink containing alcohol: never Score interpretation: A score less than 3 is consistent with normal alcohol consumption. Smoking status: Current every day smoker Non-prescribed substance use: denies use Highest level of school completed/degree received: high school graduate Exam Narrative Exam Narrative: Nurses notes and vital signs reviewed and patient is not hypoxic. General: Well-appearing and in no apparent distress. Skin: Warm, dry, no pallor noted. No rash. Head: Normocephalic, atraumatic. Neck: Supple, non-tender. Eye: Pupils are equal, round and EOMI. No scleral icterus. Ears, Nose, Mouth, and Throat: TM are clear, no nasal mucosal hypertrophy. Oral mucosa is moist, no posterior oropharynx erythema, uvula is mid-line Cardiovascular: Regular Rate and Rhythm without murmur, gallop or rub. Respiratory: No accessory muscle use or respiratory distress. Lungs are clear to auscultation, no wheezing, rales or rhonchi Chest Wall: no tenderness Back: No midline thoracic or lumbar vertebral tenderness. No CVA tenderness Musculoskeletal: normal ROM, no calf or popliteal tenderness, no lower extremity edema/swelling GI: Abdomen is soft, non-distended. Normal bowel sounds. No masses appreciated. No tenderness to palpation. No rebound, guarding, or rigidity noted. Neurological: A&O x4. No cranial nerve dysfunction observed. No truncal ataxia. Moves all extremities. Sensation intact. Psychiatric: Cooperative and interactive. Normal mood and affect. Constitutional Vital Signs, click to edit/add: Last Vital Signs Temp 98.3 F 09/21/24 12:37 Pulse 45 L 09/21/24 13:49 Resp 13 09/21/24 13:49 BP 127/60 09/21/24 13:49 Pulse Ox 95 09/21/24 13:40 O2 Del Method Room Air 09/21/24 12:37 Course Vital Signs Vital signs: Vital Signs Temperature 98.3 F 09/21/24 12:37 Pulse Rate 50 L 09/21/24 12:37 Respiratory Rate 16 09/21/24 12:37 Blood Pressure 135/75 09/21/24 12:37 Pulse Oximetry 98 09/21/24 12:37 Oxygen Delivery Method Room Air 09/21/24 12:37 Temperature 98.3 F 09/21/24 12:37 Pulse Rate 45 L 09/21/24 13:49 Respiratory Rate 13 09/21/24 13:49 Blood Pressure 127/60 09/21/24 13:49 Pulse Oximetry 95 09/21/24 13:40 Oxygen Delivery Method Room Air 09/21/24 12:37 MDM - Extremity (Nontraumatic) MDM Narrative Medical decision making narrative: The patient upon arrival she had a CT head showed no acute pathology and blood workup as well that shows only some elevated BUN and signs of dehydration Right now the patient cramp already resolved and her presentation was not consistent with a possible stroke her blood pressure was controlled she was in the ER and the way that she described that it happened after she was sleeping in the recliner and it only and then her left arm not weakness and she sometimes feels in her shoulder This mostly consistent with a cramp more than anything else patient was instructed about hydration The patient is to follow up with primary care physician in next 2-3 days or to return to the emergency department should any of the signs or symptoms worsen or new symptoms develop. The patient agrees with the following Diagnosis and Treatment plan and the patient will be discharged home. Lab Data Labs: Lab Results 09/21/24 Range/Units 12:47 WBC 9.7 (4.0-11.0) 10^3/uL RBC 4.04 L (4.20-5.40) 10^6/uL Hgb 14.4 (12.0-16.0) g/dL Hct 42.9 (36.0-48.0) % MCV 106.2 H (81.0-99.0) fL MCH 35.6 H (26.7-34.0) pg MCHC 33.6 (29.9-35.2) g/dL RDW 13.1 (11.0-15.0) % Plt Count 310 (150-450) 10^3/uL MPV 11.3 (9.5-13.5) fL Neut % (Auto) 62.3 (43.0-75.0) % Lymph % (Auto) 25.4 (20.5-60.0) % Creek % (Auto) 8.3 (1.7-12.0) % Eos % (Auto) 3.3 (0.9-7.0) % Baso % (Auto) 0.4 (0.2-2.0) % Neut # (Auto) 6.0 (1.4-6.5) 10^3/uL Lymph # (Auto) 2.5 (1.2-3.8) 10^3/uL Creek # (Auto) 0.8 (0.3-0.8) 10^3/uL Eos # (Auto) 0.3 (0.0-0.7) 10^3/uL Baso # (Auto) 0.0 (0.0-0.1) 10^3/uL Abs Immat Gran (auto) 0.03 (0.00-0.03) 10^3/uL Imm/Tot Granulo (auto) 0.3 (0.0-0.5) % PT 11.1 (9.0-11.6) sec INR 1.05 Sodium 139 (136-145) mmol/L Potassium 3.9 (3.5-5.1) mmol/L Chloride 98 (98-107) mmol/L Carbon Dioxide 28.7 (21.0-32.0) mmol/L Anion Gap 16.2 BUN 25.0 H (7.0-18.0) mg/dL Creatinine 1.32 H (0.55-1.02) mg/dL Est GFR ( Amer) 47 L (>=60 mL/min/1.73m^2) Est GFR (Non-Af Amer) 39 L (>=60 mL/min/1.73m^2) BUN/Creatinine Ratio 18.9 Glucose 119 H (74-106) mg/dL Calcium 9.5 (8.5-10.1) mg/dL Magnesium 2.0 (1.8-2.4) mg/dL Total Bilirubin 0.7 (0.2-1.0) mg/dL AST 25 (15-37) U/L ALT 25 (14-59) U/L Alkaline Phosphatase 91 (46-116) U/L Total Protein 7.5 (6.4-8.2) g/dL Albumin 4.0 (3.4-5.0) g/dL Globulin 3.5 g/dL Albumin/Globulin Ratio 1.1 Discharge Plan Discharge Chief Complaint: Extremity Problem, Nontraumatic Clinical Impression: Cramp in muscle Patient Disposition: Home, Self-Care Time of Disposition Decision: 13:46 Condition: Good Prescriptions / Home Meds: No Action francorole 0.5 mg tablet 0.5 mg PO .at bedtime venlafaxine 37.5 mg capsule,extended release 24hr 37.5 mg PO DAILY atorvastatin 20 mg Tablet 20 mg PO QHS Qty: 30 11RF aspirin 325 mg Tablet 325 mg PO QD Qty: 30 11RF hydroxyurea 500 mg capsule 500 mg PO DAILY dapagliflozin propanediol [Farxiga] 5 mg tablet 5 mg PO DAILY alprazolam 1 mg tablet 1 mg PO BID PRN (Reason: anxiety) gabapentin 300 mg capsule 300 mg PO DAILY latanoprost 0.005 % drops 1 drp OPHTHALMIC (EYE) .hs levetiracetam 500 mg tablet 500 mg PO BID metoprolol tartrate 25 mg tablet 25 mg PO BID oxycodone-acetaminophen 7.5-325 mg tablet 2 tab PO DAILY PRN (Reason: pain) simvastatin 40 mg tablet 40 mg PO DAILY oxybutynin chloride 5 mg tablet 5 mg PO BID famotidine [Pepcid] 20 mg tablet 20 mg PO DAILY Qty: 10 0RF diphenhydramine HCl [Benadryl] 25 mg capsule 25 mg PO Q8H PRN (Reason: itching) Qty: 20 0RF Print Language: Japanese Instructions: Muscle Cramp (ED) Referrals: ANDREW WALKER [Primary Care Provider] - 1 week Discharge Date/Time: 09/21/24 13:59
== END 2024-09-21 13:59 | disposition home or self-care (01) ==
PROVIDERS: Emergency Provider Emergency Medicine
DX: R25.2 Cramp and spasm (principal); Z86.73 Personal history of transient ischemic attack (TIA), and cerebral infarction without residual deficits; Z90.710 Acquired absence of both cervix and uterus; Z98.1 Arthrodesis status; Z96.642 Presence of left artificial hip joint; F17.200 Nicotine dependence, unspecified, uncomplicated
CPT/HCPCS: 36415; 70450; 80053; 83735; 85025; 85610; 93005; 99285

== ENCOUNTER 2024-12-20 08:57 | Outpatient (OUT) | payer MEDICARE, MEDICAID, SELFPAY ==
--- OUTSIDE RECORDS SUMMARY | 2024-12-20 09:11 | XMS_ITS | CCD ---
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 Operator Name Role Phone Olga Schwartz Unavailable [...] SCHWARTZ, DR OLGA Rodriguez Primary Care Unavailable ZIEBJIMBO, DR RAIN Bloom Consulting Unavailable SCHWARTZ, DR OLGA Rodriguez Consulting Unavailable SCHWARTZ, DR OLGA Rodriguez Admitting Unavailable SCHWARTZ, DR OLGA Rodriguez Attending Unavailable SCHWARTZ, DR OLGA Rodriguez Primary Care Unavailable ZIEBER, DR RAIN Bloom Consult[employer] Unavailable SCHWARTZ, DR OLGA Rodriguez Consulting [facility] Unavailable SCHWARTZ, DR OLGA Rodriguez Admitting Unavailable SCHWARTZ, DR OLGA Rodriguez Attending Unavailable SCHWARTZ, DR OLGA Rodriguez Primary Care Unavailable WEST, DR CHAITANYA King Consulting Unavailable SCHWARTZ, DR OLGA Rodriguez Consulting Unavailable JOSTIN, ELOINA Sherwood Referring Unavailable SAIRA CAMPBELL Primary Care Unavailable Olga Schwartz Attending Unavailable Efren, Olga Rodriguez Primary Care Unavailable Olga Schwartz Admitting Unavailable SchwartzOlga Admitting Unavailable Olga Schwartz Attending Unavailable Olga Schwartz Primary Care Unavailable Neto Hooper Attending UnavailDO Dawit Fountain Referring Unava ilJARON Gibson Attending Unavailable Olga Schwartz MD Primary Care Provider [phone] Ethan Bonilla MD Primary Care Provider Keira Church NP Unavailable DAWIT BARBER Attending Unavailable NESTOR IEVRSON Attending Unavailable KEIRA CHURCH Attending KEIRA Mayes Attending SAIRA Aparicio Primary Care Unavailable SAIRA CAMPBELL Referring Unavailable SAIRA CAMPBELL Primary Care Unavailable SAIRA CAMPBELL Referring Unavailable SAIRA CAMPBELL Primary Care Unavailable Allergies Allergy Classification Reported Allergen(s) Allergy Type Date of Onset Reaction(s) Facility (15 sources) nickel; Translations: [NICKEL] Drug Allergy 02-13-20 Unknown, [facility] (13 sources) Penicillin Drug Allergy Unknown [facility] Other (20 sources) PHENobarbital; Translations: [PHENOBARBITAL] Drug Allergy 04-07-20 Rash, Unknown [facility] (20 sources) Phenytoin; Translations: [PHENYTOIN] Drug Allergy 04-07-20 Unknown [facility] (15 sources) Zinc; Translations: [ZINC] Drug Allergy 02-13-20 Unknown, [facility] (1 source) benzoin resin Drug Allergy 09-25-20 14 [facility] (1 source) Leucine Drug Allergy [facility] (5 sources) Penicillins; Translations: [PENICILLINS] Drug allergy (disorder) 09-25-20 14 Hives [facility] Repository (1 source) Phenytoin Drug Allergy 09-25-20 14 [facility] (8 sources) Allergies Reconciled Propensity to adverse reactions Unknown [employer] [facility] Other (8 sources) Penicillin G Benzathine & Proc Drug allergy Unknown [employer] [facility] Other (8 sources) PHENobarbital *HYPNOTICS/SEDAT ANN/SLEEP DISORDER Propensity to adverse reactions Unknown [employer] [facility] Other (8 sources) patient allergy list reviewed by nurse or physicia Propensity to adverse reactions 03-29-20 19 Comment:Done [employer] Other (16 sources) Penicillin G Benzathine Allergy to substance 02-13-20 [facility] (1 source) PHENobarbital *HYPNOTICS/SEDAT Allergy to substance 02-13-20 [facility] (17 sources) Phenytoin; Translations: [PHENYTOIN SODIUM EXTENDED] Drug Allergy 04-07-20 21 Rash [facility] Rep[facility] (15 sources) nickel sulfate Drug Allergy 03-21-20 24 Unknown [facility] (15 sources) Penicillins Drug Intolerance 04-07-20 21 Rash, Unknown [facility] (15 sources) Zinc Acetate Drug Allergy 03-21-20 24 [facility] Medications Current Medications Medication Drug Class(es) Dates Sig (Normalized) Sig (Original) acetaminophen 325 mg / oxyCODONE hydrochloride 7.5 mg oral tablet (20 sources) Opioid Agonist Start: 11-15-2024 End: 12-17-2024 take 1 tablet by mouth in the morning oxyCODONE-acetami nophen (Percocet) 7.5-325 MG tablet Indications: Lumbar back pain Take 1 tablet by mouth in the morning and 1 tablet before bedtime. 60 tablet 12/17/2024 Active Start: 11-15-2024 take 1 tablet by pastor th in the morning oxyCODONE-acetaminophen (Percocet) 7.5-325 MG tablet Indications: Lumbar back pain Take 1 tablet by mouth in the morning and 1 tablet before bedtime. Do not start before November 15, 2024. 60 tablet 11/15/2024 Active Start: 10-16-2024 End: 11-13-2024 take 1 tablet by mouth in the morning oxyCODONE-acetaminophen (Percocet) 7.5-325 MG tablet Indications: Lumbar back pain Take 1 tablet by mouth in the morning and 1 tablet before bedtime. 60 tablet 10/16/2024 11/13/2024 Discontinued (Reorder) Start: 08-12-2024 End: 10-14-2024 take 1 tablet by mouth in the morning oxyCODONE-acetaminophen (Percocet) 7.5-325 MG tablet Indications: Lumbar back pain Take 1 tablet by mouth in the morning and 1 tablet before bedtime. 60 tablet 09/11/2024 10/14/2024 Discontinued (Reorder) Start: 12-22-2023 End: 01-22-2024 take 1 tablet [...] TWICE DAILY NEEDED FOR 30 DAYS for Jan, Active aspirin 325 mg oral tablet (16 sources) Platelet Aggregation Inhibitor, Nonsteroidal Anti-inflammatory Drug [...] Discontinued (Reorder) atorvastatin 80 mg oral tablet (16 sources) HMG-CoA Reductase Inhibitor Start: 03-25-2024 End: 08-12-2025 take 1 tablet by mouth once daily atorvastatin (Lipitor) 80 MG tablet Indications: Hyperlipidemia, unspecified hyperlipidemia type (CMS/HCC) Take 1 tablet (80 mg) by mouth Daily 30 tablet 2 08/12/2024 08/12/2025 Active Ciprofloxacin (5 sources) Quinolone Antimicrobial Ciprofloxacin Active dapagliflozin 5 mg oral tablet (7 sources) Sodium-Glucose Cotransporter 2 Inhibitor Start: 09-16-2024 End: 09-16-2025 take 1 tablet by mouth once daily dapagliflozin (Farxiga) 5 MG Indications: Type 2 diabetes mellitus with chronic kidney disease, without long-term current use of insulin, unspecified CKD stage (CMS/HCC) Take 1 tablet (5 mg) by mouth Daily 30 tablet 11 09/16/2024 09/16/2025 Active gabapentin 300 mg oral capsule (20 sources) Anti-epileptic Agent Start: 08-12-2024 take 1 capsule by mouth once daily gabapentin (Neurontin) 300 MG capsule Indications: Neuropathic Pain Take 1 capsule (300 mg) by mouth Daily 30 capsule 2 08/12/2024 Active Start: 02-09-2024 take 300 mg by mouth three times daily Gabapentin Active 300 MG PO Three times daily February 09, 2024 12:00am Start: 11-08-2022 take 1 capsule by mo [facility] three times daily Gabapentin 300 MG 1 capsule Orally 3 times per day for 30 day(s) Nov, Active End: 08-06-2024 take 1 capsule by mouth once daily gabapentin (Neurontin) 300 MG capsule Indications: Neuropathic Pain Take 300 mg by mouth Daily 08/06/2024 Discontinued (Reorder) hydroxyurea 500 mg oral capsule (15 sources) Antimetabolite Start: 04-23-2024 take 1 capsule by mouth once daily hydroxyurea (Hydrea) 500 MG capsule Take 500 mg by mouth Daily. 04/23/2024 Active Hyoscyamine (5 sources) Hyoscyamine Acti ve latanoprost 0.05 mg/ml ophthalmic solution (14 sources) Prostaglandin Analog Start: 05-17-2024 take 1 [...] 01/15/2024 Active take 1 tablet by pastor twice daily levETIRAcetam 500 MG TAKE 1 TABLET BY MOUTH TWICE A DAY for 90 Active metoprolol tartrate 25 mg oral tablet (20 sources) beta-Adrenergic Tereso Start: 11-13-2024 take 1 tablet by mouth in the morning metoprolol tartrate (Lopressor) 25 MG tablet Indications: Cerebrovascular accident (CVA), unspecified mechanism (CMS/HCC) Take 1 tablet (25 mg) by mouth in the morning and 1 tablet (25 mg) before bedtime. 60 tablet 1 11/13/2024 Active Start: 08-12-2024 End: 11-13-2024 take 1 tablet by mouth in the morning metoprolol tartrate (Lopressor) 25 MG tablet Indications: Cerebrovascular accident (CVA), unspecified mechanism (CMS/HCC) Take 1 tablet (25 mg) by mouth in the morning and 1 tablet (25 mg) before bedtime. 60 tablet 1 08/12/2024 11/13/2024 Discontinued (Reorder) Start: 05-05-2024 End: 08-06-2024 take 1 tablet [...] 90 Active rOPINIRole 0.5 mg oral tablet (20 sources) Nonergot Dopamine Agonist Start: 08-12-2024 End: 09-03-2024 take 1 tablet by mouth once daily rOPINIRole (Requip) 0.5 MG tablet Indications: Restless leg syndrome TAKE 1 TABLET BY MOUTH EVERYDAY AT THE SAME TIME 90 tablet 1 09/03/2024 Active Start: 01-19-2024 End: 02-13-2024 take 1 [...] (Original) busPIRone hydrochloride 10 mg oral tablet (16 sources) Start: 05-19-2024 End: 07-24-2024 take 1 tablet by mouth in the morning busPIRone (Buspar) 10 MG tablet Take 10 mg by mouth in the morning and 10 mg before bedtime. 05/19/2024 07/24/2024 Discontinued (Ineffective) Start: 02-09-2024 End: 02-13-2024 take 10 mg by mouth twice daily Buspirone Discontinued 10 MG PO Twice daily February 09, 2024 12:00am February 13, 2024 11:33am take 1 tablet by pastor th twice daily busPIRone HCl 10 MG TAKE 1 TABLET [...] pain] Onset: 8 Episodic Acute cerebrovascular disease (20 sources) Cerebrovascular accident; Translations: [Cerebral infarction, unspecified] [...] or chronic] Episodic Diabetes mellitus with complications (6 sources) Type 2 diabetes mellitus; Translations: [Type 2 diabetes mellitus with diabetic chronic kidney disease] Onset: 4 09-16-2024 Chronic Diabetes mellitus without complication (15 sources) Abnormal glucose level; Translations: [Other abnormal glucose] Onset: 8 09-23-2024 Episodic Disorders of lipid metabolism (20 sources) Hyperlipidemia; Translations: [Other hyperlipidemia] Onset: 3 Chronic Diverticulosis and diverticulitis (8 sources) Diverticulitis of colon; Translations: [Diverticulitis of intestine, part unspecified, without perforation or abscess without bleeding] Onset: 8 Chronic Epilepsy; convulsions (9 sources) Epilepsy; Translations: [Epilepsy, unspecified, not intractable, without status epilepticus] Onset: 8 02-09-2024 Chronic Esophageal disorders (14 sources) Gastroesophageal reflux disease; Translations: [Gastro-esophageal reflux disease without esophagitis] Onset: 4 07-24-2024 Chronic Essential hypertension (20 sources) Essential hypertension; Translations: [Essential (primary) hypertension] Onset: 3 Chronic Gastrointestinal hemorrhage (1 source) Melena Episodic Glaucoma (14 sources) Glaucoma; Translations: [Unspecified glaucoma] Onset: 4 [...] osteoarthritis, left hip] Onset: 8 Chronic Osteoporosis (20 sources) Primary osteoporosis; Translations: [Age-related osteoporosis without [...] 4 02-09-2024 Chronic Other nervous system disorders (20 sources) Carpal tunnel syndrome of left wrist; Translations: [Carpal tunnel syndrome, left upper limb] Onset: 4 02-09-2024 Chronic Other nervous system disorders (1 source) Carpal tunnel syndrome, left upper limb Chronic Other nervous system disorders (15 sources) Aphasia; Translations: [Aphasia] Onset: 4 03-21-2024 Chronic Other nervous system disorders (14 sources) Chronic pain; Translations: [Other chronic pain] [...] [Body mass index (BMI) 23.0-23.9, adult] Episodic Spondylosis; intervertebral disc disorders; other back problems (2 sources) Other intervertebral disc degeneration, lumbar region; Translations: [Spondylosis without myelopathy or radiculopathy, lumbar region] Onset: 2 Chronic Spondylosis; intervertebral disc disorders; other back problems (20 sources) Sciatica; Translations: [Sciatica, right side] Onset: 2 12-22-2023 Episodic Substance-related disorders (20 sources) Nicotine dependence, cigarettes, uncomplicated; Translations: [Tobacco user] Onset: 2 Chronic Unclassified (8 sources) Exposure to acute respiratory syndrome coronavirus 2; Translations: [Contact with and (suspected) exposure to COVID-19] Urinary tract infections (16 sources) Urinary tract infectious disease; Translations: [Urinary tract infection, site not specified] Onset: 8 Episodic Past or Other Problems Problem Classification Problem Date Documented Da te Episodic/Chronic Allergic reactions (14 sources) Eczema; Translations: [Dermatitis, unspecified] Onset: 04-02-2024 07-24-2024 Episodic Epilepsy; convulsions (17 sources) Seizure; Translations: [Unspecified convulsions] Onset: 03-21-2024 02-13-2024 Episodic Genitourinary symptoms and ill-defined conditions (8 sources) Dysuria; Translations: [Dysuria] Onset: 10-23-2018 Episodic Headache; including migraine (13 sources) Headache; including migraine; Translations: [Left temporal headache] Inflammatory diseases of female pelvic organs (8 sources) Acute vaginitis; Translations: [Acute vaginitis] Onset: 11-22-2018 Episodic Mood disorders (14 sources) Mood disorders Onset: 07-24-2024 07-24-2024 Nutritional deficiencies (20 sources) Vitamin B12 deficiency (non anemic); Translations: [Deficiency of other specified B group vitamins] Onset: 02-17-2023 Episodic Other connective tissue disease (14 sources) Primary fibromyalgia syndrome; Translations: [Fibromyalgia] Onset: 04-02-2024 07-24-2024 Episodic Other connective tissue disease (14 sources) Tear of right rotator cuff; Translations: [Unspecified rotator cuff tear or rupture of right shoulder, not specified as traumatic] Onset: 07-24-2024 07-24-2024 Episodic Other non-traumatic joint disorders (4 sources) Pain in right hip; Translations: [PAIN IN RIGHT HIP] Onset: 10-18-2022 Episodic Other non-traumatic joint disorders (8 sources) Shoulder joint pain; Translations: [Pain in right shoulder] Onset: 09-03-2018 Episodic Pancreatic disorders (not diabetes) (14 sources) Drug-induced acute pancreatitis; Translations: [Drug induced acute pancreatitis without necrosis or infection] Onset: 04-08-2021 07-24-2024 Episodic Residual codes; unclassified (20 sources) Insomnia; Translations: [Insomnia, unspecified] Onset: 04-02-2024 02-09-2024 Episodic Residual codes; unclassified (1 source) Pain, unspecified; Translations: [Pain, unspecified] Onset: 02-12-2024 Episodic Results Test Name Value Interpretation Reference Range Facility ALL CBC WITH AUTO DIFFon BASOPHILS ABSOLUTE AUTO 0 N [facility] Basophils/100 WBC (Bld) 0.6 % 0.2 - 2.0 % [facility] Eosinophils/100 WBC (Bld) 3.5 % 0.9 - 7.0 % [facility] Erythrocyte distribution width (RBC) [Ratio] 14.7 % 11.0 - 15.0 % [facility] Hematocrit (Bld) [Volume fraction] 42.2 % 36.0 - 48.0 % [facility] Hemoglobin (Bld) [Mass/Vol] 13.9 g/dL 12.0 - 16.0 g/dL [facility] IMMATURE GRANULOCYTES ABS AUTO 0.01 [facility] Immature granulocytes/100 WBC (Bld) 0.1 % 0.0 - 0.5 % [facility] Interpretation and review of laboratory results Abnormal [facility] LYMPHOCYTES ABSOLUTE AUTO 2.5 [facility] Lymphocytes/100 WBC (Bld) 36.5 % 20.5 - 60. 0 % [facility] MCH (RBC) [Entitic mass] 35 pg High 26. 7 - 34.0 pg [facility] MCHC (RBC) [Mass/Vol] 32.9 g/dL 29.9 - 35.2 g/dL [facility] MCV (RBC) [Entitic vol] 106.3 fL High 81.0 - 99.0 fL [facility] MONOCYTES ABSOLUTE AUTO 0.6 N [facility] Monocytes/100 WBC (Bld) 8.4 % 1.7 - 12.0 % [facility] NEUTROPHILS ABSOLUTE AUTO 3.5 [facility] Neutrophils/100 WBC (Bld) 50.9 % 43.0 - 75. 0 % [facility] Platelet mean volume (Bld) [Entitic vol] 10.7 fL 9.5 - 13.5 fL [facility] TBH EO # 0.2 [facility] PLT 340 [facility] RBC 3.97 Low [facility] WBC 6.8 [facility] ALL CBC WITH AUTO DIFFon BASOPHILS ABSOLUTE AUTO 0.0 N [facility] Basophils/100 WBC (Bld) 0.5 % 0.2 - 2.0 % [facility] Eosinophils/100 WBC (Bld) 3.6 % 0.9 - 7.0 % [facility] Erythrocyte distribution width (RBC) [Ratio] 16.5 % High 11.0 - 15.0 % [facility] Hematocrit (Bld) [Volume fraction] 41.6 % 36.0 - 48.0 % [facility] Hemoglobin (Bld) [Mass/Vol] 14.1 g/dL 12.0 - 16.0 g/dL [facility] IMMATURE GRANULOCYTES ABS AUTO 0.01 [facility] Immature granulocytes/100 WBC (Bld) 0.1 % 0.0 - 0.5 % [facility] Interpretation and review of laboratory results Abnormal [facility] LYMPHOCYTES ABSOLUTE AUTO 2.6 [facility] Lymphocytes/100 WBC (Bld) 36.0 % 20.5 - [...] 4.04 Low [facility] WBC 7.3 [facility] Office Visiton 04-02-2024 Follow-up visit [id number] Lesly Steve 1950 F Date Provider Department Center 04/02/2024 [id number], AB CARD [facility] Family History Family history unknown: Yes Level of Service:40545 [place] OFFICE/OUTPATIENT NEW MODERATE MDM 45 MINUTES Normal [facility] Orders Onlyon 03-29-2024 Orders Only [id number] Lesly Steve 1950 F Date Provider Department Center 03/29/2024 [id number], HISTORICAL CARD [facility] No family history on file Normal [facility] Referrals Officeon 4 Referrals Office [id number] Normal [facility] Urine Cultureon 03-19-2024 Bacteria identified Cx Nom (U) <9,000 colonies/ml mixed bacterial skin contaminants 2 Days PERFORMED BY: [facility] [address] [place] [id number] PATHOLOGIST CONTRACTS MANAGER AYANA TAY M.D. Normal [facility] Comment on above: Performed By: #### C UU #### [place] [id number] [facility] Basophils Auto (Bld) [#/Vol] on 02-09-2024 Basophils (Bld) [#/Vol] 0.0 10 3/uL 0.0-0.1 [facility] Basophils/100 WBC Auto (Bld) on 02-09-2024 Basophils/100 WBC (Bld) 0.3 % 0.2-2.0 [facility] Cholesterol in LDL Calc [Mas s/Vol]on 02-09-2024 Cholesterol in LDL [Mass/Vol] 141.0 mg/dL [facility] Comment on above: <100 mg/dl [id number] 0-129 mg/dl NEAR OR ABOVE [id number] mg/dl BORDERLINE [id number] mg/dl HIGH>190 mg/dl VERY HIGH Cholesterol in VLDL Calc [Ma ss/Vol]on 02-09-2024 Cholesterol in VLDL [Mass/Vol] 25.2 mg/dL [facility] Eosinophils/100 WBC Auto (Bl d)on 02-09-2024 Eosinophils/100 WBC (Bld) 2.7 % 0.9-7.0 [facility] Erythrocyte distribution wid th Auto (RBC) [Ratio]on 02-09-2024 Erythrocyte distribution width (RBC) [Ratio] 14.0 % 11.0-15.0 [facility] Estimated glomerular filtrat ion rate (GFR) non- Americanon 02-09-2024 GFR/1.73 sq M.predicted among non-blacks MDRD (S/P/Bld) [Vol rate/Area] 59 mL/min/{1.73_m2} >=60 [facility] Hematocrit Auto (Bld) [Volum e fraction]on 02-09-2024 Hematocrit (Bld) [Volume fraction] 45.5 % 36.0-48.0 [facility] Hemoglobin [Mass/volume] in Bloodon 02-09-2024 Hemoglobin (Bld) [Mass/Vol] 14.6 g/dL 12.0-16.0 [facility] Laboratory - Chemistry and C hemistry - challengeon 02-09-2024 Calcium [Mass/Vol] 9.6 mg/dL 8.5-10.1 [facility] Chloride [Moles/Vol] 103 mmol/L 98-107 [facility] Cholesterol [Mass/Vol] 200 mg/dL <=200 [facility] Cholesterol in HDL [Mass/Vol] 34 mg/dL 40-60 [facility] Comment on above: > or =60 mg/dl - LOW CARDIOVASCULAR RISK<40 mg/dl - HIGH CARDIOVASCULAR RISK CO2 [Moles/Vol] 26.1 mmol/L 21.0-32.0 [facility] Creatinine [Mass/Vol] 0.93 mg/dL 0.55-1.[address] [facility] GFR/1.73 sq M.predicted MDRD (S/P/Bld) [Vol rate/Area] mL/min/{1.73_m2} >=60 [facility] Glucose [Mass/Vol] 116 mg/dL 74-106 [facility] Potassium [Moles/Vol] 4.2 mmol/L 3.5-5.[address] [facility] Sodium [Moles/Vol] 139 mmol/L 136-145 [facility] Triglyceride [Mass/Vol] 126 mg/dL <=150 [facility] Urea nitrogen [Mass/Vol] 22.0 mg/dL 7.0-18.0 [facility] Urea nitrogen/Creatinine [Mass ratio] 23.7 mg/mg [facility] Laboratory - Hematology and Cell countson 02-09-2024 Immature granulocytes/100 WBC (Bld) 0.3 % 0.0-0.5 [facility] Leukocytes [#/volume] correc dinora for nucleated erythrocytes in Blood by Automated counon 02-09-2024 WBC corrected for nucl RBC Auto (Bld) [#/Vol] 12.2 10 3/uL 4.0-11.0 [facility] Lymphocytes Auto (Bld) [#/Vo l]on 02-09-2024 Lymphocytes (Bld) [#/Vol] 2.0 10 3/uL 1.2-3.8 [facility] Lymphocytes/100 WBC Auto (Bl d)on 02-09-2024 Lymphocytes/100 WBC (Bld) 16.4 % 20.5-60.0 [facility] MCH Auto (RBC) [Entitic mass ]on 02-09-2024 MCH (RBC) [Entitic mass] 29.4 pg 26.7-34.0 [facility] MCHC Auto (RBC) [Mass/Vol]on 02-09-2024 MCHC (RBC) [Mass/Vol] 32.1 g/dL 29.9-35.[address] [facility] MCV Auto (RBC) [Entitic vol] on 02-09-2024 MCV (RBC) [Entitic vol] 91.7 fL 81.0-99.0 [facility] Monocytes Auto (Bld) [#/Vol] on 02-09-2024 Monocytes (Bld) [#/Vol] 0.9 10 3/uL 0.3-0.8 [facility] Monocytes/100 WBC Auto (Bld) on 02-09-2024 Monocytes/100 WBC (Bld) 7.7 % 1.7-12.0 [facility] Neutrophils Auto (Bld) [#/Vo l]on 02-09-2024 Neutrophils (Bld) [#/Vol] 8.9 10 3/uL 1.4-6.5 [facility] Neutrophils/100 WBC Auto (Bl d)on 02-09-2024 Neutrophils/100 WBC (Bld) 72.6 % 43.0-75.0 [facility] No Panel Informationon 02-08 Eosinophils # (Auto) 0.3 10 3/uL 0.0-0.[address] [facility] Immature Granulocyte # (Auto) 0.04 10 3/uL 0.00-0.03 [facility] Platelet mean volume Auto (B ld) [Entitic vol]on 02-09-2024 Platelet mean volume (Bld) [Entitic vol] 10.9 fL 9.5-13.5 [facility] Platelets Auto (Bld) [#/Vol] on 02-09-2024 Platelets (Bld) [#/Vol] 546 10 3/uL 150-450 [facility] RBC Auto (Bld) [#/Vol]on RBC (Bld) [#/Vol] 4.96 10 6/uL 4.20-5.40 [facility] Serum or plasma anion gap de terminationon 02-09-2024 Anion gap [Moles/Vol] 14.1 mmol/L [facility] Serum or plasma total choles terol/high density lipoprotein (HDL) cholesterol mass maury 02-09-2024 Cholesterol.total/Cholest janay in HDL [Mass ratio] 5.9 {ratio} [facility] Comment on above: 3.3 - 4.4 LOW RISK4. 4 - 7.1 AVERAGE RISK7.1 - 11.0 MODERATE RISK>11.0 HIGH RISK Automated epithelial cells c ount in urine sediment (number/area)on 02-08-2024 Epithelial cells Auto (Urine sed) [#/Area] MODERATE #/LPF NONE/RARE [facility] Automated leukocytes count i n urine sediment (number/area)on 02-08-2024 WBC Auto (Urine sed) [#/Area] 0-2 #/HPF 0-2 [facility] Automated urine specific gra vity by refractometryon 02-08-2024 Specific gravity Refractometry automated (U) [Rel density] 1.025 1.005-1.025 [facility] Basophils Auto (Bld) [#/Vol] on 02-08-2024 Basophils (Bld) [#/Vol] 0.1 10 3/uL 0.0-0.1 [facility] Basophils/100 WBC Auto (Bld) on 02-08-2024 Basophils/100 WBC (Bld) 0.4 % 0.2-2.0 [facility] Bilirubin Auto test strip (U ) [Mass/Vol]on 02-08-2024 Bilirubin (U) [Mass/Vol] Negative NEGATIVE [facility] Casts typing in urine sedime nt by light microscopyon 02-08-2024 Casts LM Nom (Urine sed) NONE SEEN #/LPF NONE S EEN [facility] Color Auto (U)on 02-08-2024 Color (U) YELLOW YELLOW [facility] Eosinophils/100 WBC Auto (Bl d)on 02-08-2024 Eosinophils/100 WBC (Bld) 1.9 % 0.9-7.0 [facility] Erythrocyte distribution wid th Auto (RBC) [Ratio]on 02-08-2024 Erythrocyte distribution width (RBC) [Ratio] 13.9 % 11.0-15.0 [facility] Estimated glomerular filtrat ion rate (GFR) non- Americanon 02-08-2024 GFR/1.73 sq M.predicted among non-blacks MDRD (S/P/Bld) [Vol rate/Area] 51 mL/min/{1.73_m2} >=60 [facility] Globulin Calc (S) [Mass/Vol] on 02-08-2024 Globulin (S) [Mass/Vol] 3.7 g/dL [facility] Hematocrit Auto (Bld) [Volum e fraction]on 02-08-2024 Hematocrit (Bld) [Volume fraction] 48.8 % 36.0-48.0 [facility] Hemoglobin [Mass/volume] in Bloodon 02-08-2024 Hemoglobin (Bld) [Mass/Vol] 15.8 g/dL 12.0-16.0 [facility] INR in Platelet poor plasma by Coagulation assayon 02-08-2024 INR Coag (PPP) [Relative time] 1.05 {INR} [facility] Comment on above: DESIRED INR:2.0-3.0 CONDITIONS NOT LISTED BELOW2.5-3.5 FOR PROSTHETIC HEART VALVE REPLACEMENT2.5-3.5 RECURRENT THROMBOSIS Ketones Auto test strip (U) [Mass/Vol]on 02-08-2024 Ketones (U) [Mass/Vol] Negative NEGATIVE [facility] and C hemistry - challengeon 02-08-2024 Albumin [Mass/Vol] 4.0 g/dL 3.4-5.0 [facility] ALP [Catalytic activity/Vol] 80 U/L 46-116 [facility] ALT [Catalytic activity/Vol] 25 U/L 14-59 [facility] AST [Catalytic activity/Vol] 31 U/L 15-37 [facility] Bilirubin [Mass/Vol] 0.4 mg/dL 0.2-1.0 [facility] Calcium [Mass/Vol] 9.5 mg/dL 8.5-10.1 [facility] Chloride [Moles/Vol] 100 mmol/L 98-107 [facility] CO2 [Moles/Vol] 28.0 mmol/L 21.0-32.0 [facility] Creatinine [Mass/Vol] 1.06 mg/dL 0.55-1.[address] [facility] GFR/1.73 sq M.predicted MDRD (S/P/Bld) [Vol rate/Area] mL/min/{1.73_m2} >=60 [facility] Glucose [Mass/Vol] 105 mg/dL 74-106 [facility] Potassium [Moles/Vol] 3.7 mmol/L 3.5-5.[address] [facility] Protein [Mass/Vol] 7.7 g/dL 6.4-8.2 [facility] Sodium [Moles/Vol] 137 mmol/L 136-145 [facility] Urea nitrogen [Mass/Vol] 19.0 mg/dL 7.0-18.0 [facility] Urea nitrogen/Creatinine [Mass ratio] 17.9 mg/mg [facility] - Hematology and Cell countson 02-08-2024 Immature granulocytes/100 WBC (Bld) 0.2 % 0.0-0.5 [facility] - Microbiology an d Antimicrobial susceptibilityOrdered By: Olga Schwartz on 02-08-2024 Bacteria identified Cx Nom (U) [facility] Leukocytes [#/volume] correc dinora for nucleated erythrocytes in Blood by Automated counon 02-08-2024 WBC corrected for nucl RBC Auto (Bld) [#/Vol] 13.4 10 3/uL 4.0-11.0 [facility] Lymphocytes Auto (Bld) [#/Vo l]on 02-08-2024 Lymphocytes (Bld) [#/Vol] 2.7 10 3/uL 1.2-3.8 [facility] Lymphocytes/100 WBC Auto (Bl d)on 02-08-2024 Lymphocytes/100 WBC (Bld) 20.3 % 20.5-60.0 [facility] MCH Auto (RBC) [Entitic mass ]on 02-08-2024 MCH (RBC) [Entitic mass] 30.2 pg 26.7-34.0 [facility] MCHC Auto (RBC) [Mass/Vol]on 02-08-2024 MCHC (RBC) [Mass/Vol] 32.4 g/dL 29.9-35.[address] [facility] MCV Auto (RBC) [Entitic vol] on 02-08-2024 MCV (RBC) [Entitic vol] 93.1 fL 81.0-99.0 [facility] Monocytes Auto (Bld) [#/Vol] on 02-08-2024 Monocytes (Bld) [#/Vol] 1.1 10 3/uL 0.3-0.8 [facility] Monocytes/100 WBC Auto (Bld) on 02-08-2024 Monocytes/100 WBC (Bld) 8.1 % 1.7-12.0 [facility] Mucus LM Ql (Urine sed)on Mucus Ql (Urine sed) TRACE NONE SEEN [facility] Neutrophils Auto (Bld) [#/Vo l]on 02-08-2024 Neutrophils (Bld) [#/Vol] 9.3 10 3/uL 1.4-6.5 [facility] Neutrophils/100 WBC Auto (Bl d)on 02-08-2024 Neutrophils/100 WBC (Bld) 69.1 % 43.0-75.0 [facility] No Panel Informationon 02-07 Urine Culture [facility] Microscopic Review YES [facility] Eosinophils # (Auto) 0.3 10 3/uL 0.0-0.[address] [facility] Immature Granulocyte # (Auto) 0.03 10 3/uL 0.00-0.03 [facility] Platelet mean volume Auto (B ld) [Entitic vol]on 02-08-2024 Platelet mean volume (Bld) [Entitic vol] 10.5 fL 9.5-13.5 [facility] Platelets Auto (Bld) [#/Vol] on 02-08-2024 Platelets (Bld) [#/Vol] 585 10 3/uL 150-450 [facility] Protein Auto test strip (U) [Mass/Vol]on 02-08-2024 Protein (U) [Mass/Vol] TRACE mg/dL NEG/TRACE [facility] Prothrombin time (PT)on PT Coag (PPP) [Time] 11.1 s 9.0-11.6 [facility] RBC Auto (Bld) [#/Vol]on RBC (Bld) [#/Vol] 5.24 10 6/uL 4.20-5.40 [facility] Serum or plasma albumin/glob ulin mass ratioon 02-08-2024 Albumin/Globulin [Mass ratio] 1.1 {ratio} [facility] Serum or plasma anion gap de terminationon 02-08-2024 Anion gap [Moles/Vol] 12.7 mmol/L [facility] Specific gravity Auto test s trip (U) [Rel density]on 02-08-2024 Specific gravity (U) [Rel density] CLEAR CLEAR [facility] Urine bacteria detection by automated methodon 02-08-2024 Bacteria Auto Ql (U) MODERATE #/HPF NONE SEEN [facility] Urine glucose measurement by test strip (mass/volume)on 02-08-2024 Glucose Test strip (U) [Mass/Vol] Negative NEGATIVE [facility] Urine hemoglobin detection b y automated test stripon 02-08-2024 Hemoglobin Auto test strip Ql (U) Negative NEGATIVE [facility] Urine nitrite detection by a utomated test stripon 02-08-2024 Nitrite Auto test strip Ql (U) SMALL NEGATIVE [facility] Nitrite Auto test strip Ql (U) Negative NEGATIVE [facility] Urine sediment crystal ident ification by light microscopyon 02-08-2024 Crystals LM Nom (Urine sed) None Seen #/HPF None Seen [facility] Urine sediment leukocyte cou nt by microscopy (number/high power field)on 02-08-2024 WBC LM.HPF (Urine sed) [#/Area] 10-20 #/HPF NONE SEEN [facility] Urobilinogen Auto test strip (U) [Mass/Vol]on 02-08-2024 Urobilinogen Qn (U) 0.2 {Toshia'U}/dL 0.2-1.0 [facility] pH Auto test strip (U)on pH (U) 5.5 [pH] 5.0-9.0 [facility] CBC AUTO DIFFon 02-09-2023 BASO # 0.0 103/ul Normal 0.0-0.1 [facility] Comment on above: Performed By: #### C BC #### [facility] [address] [address] [address] Thierno Phipps Basophils/100 WBC (Bld) 0.4 % Normal 0.2-2.0 [facility] Comment on above: Performed By: #### C BC #### [facility] [address] [address] [address] Thierno Phipps EO # 0.5 103/ul Normal 0.0-0.7 [facility] Comment on above: Performed By: #### C BC #### [facility] [address] [place] [address] Dr. Thierno Phipps Eosinophils/100 WBC (Bld) 4.8 % Normal 0.9-7.0 [facility] Comment on above: Performed By: #### C BC #### [facility] [address] [place] [address] Dr. Thierno Phipps Erythrocyte distribution width (RBC) [Ratio] 13.2 % Normal 11.0-15.0 [facility] Comment on above: Performed By: #### C BC #### [facility] [address] [place] [address] Dr. Thierno Phipps Hematocrit (Bld) [Volume fraction] 48.4 % Critically high 36.0-48.0 [facility] Comment on above: Performed By: #### C BC #### [facility] [address] [address] [address] Thierno Phipps Hemoglobin (Bld) [Mass/Vol] 15.8 g/dL Normal 12.0-16.0 [facility] Comment on above: Performed By: #### C BC #### [facility] [address] [place] [address] Dr. Thierno Phipps IG # 0.03 10e3/ul Normal 0.00-0.03 [facility] Comment on above: Performed By: #### C BC #### [facility] [address] [place] [address] Dr. Thierno Phipps IG % 0.3 % Normal 0.0-0.5 [facility] Comment on above: Performed By: #### C BC #### [facility] [address] [place] [address] Dr. Thierno Phipps LYMPH # 2.9 103/ul Normal 1.2-3.8 [facility] Comment on above: Performed By: #### C BC #### [facility] [address] [place] [address] Dr. Thierno Phipps Lymphocytes/100 WBC (Bld) 30.1 % Normal 20.5-60.0 [facility] Comment on above: Performed By: #### C BC #### [facility] [address] [place] [address] Dr. Thierno Phipps MANUAL DIFF REQ NO Normal [facility] Comment on above: Performed By: #### C BC #### [facility] [address] [place] [address] Dr. Thierno Phipps MCH (RBC) [Entitic mass] 29.6 pg Normal 26.7-34.0 [facility] Comment on above: Performed By: #### C BC #### [facility] [address] [place] [address] Dr. Thierno Phipps MCHC (RBC) [Mass/Vol] 32.6 g/dL Normal 29.9-35.2 [facility] Comment on above: Performed By: #### C BC #### [facility] [address] [place] [address] Dr. Thierno Phipps MCV (RBC) [Entitic vol] 90.8 fL Normal 81.0-99.0 [facility] Comment on above: Performed By: #### C BC #### [facility] [address] [place] [address] Dr. Thierno Phipps MONO # 0.8 103/ul Normal 0.3-0.8 [facility] Comment on above: Performed By: #### C BC #### [facility] [address] [place] [address] Dr. Thierno Phipps Monocytes/100 WBC (Bld) 8.2 % Normal 1.7-12.0 [facility] Comment on above: Performed By: #### C BC #### [facility] [address] [place] [address] Dr. Thierno Phipps NEUT # 5.4 103/ul Normal 1.4-6.5 [facility] Comment on above: Performed By: #### C BC #### [facility] [address] [place] [address] Dr. Thierno Phipps Neutrophils/100 WBC (Bld) 56.2 % Normal 43.0-75.0 [facility] Comment on above: Performed By: #### C BC #### [facility] [address] [place] [address] Dr. Thierno Phipps Platelet mean volume (Bld) [Entitic vol] 10.4 fL Normal 9.5-13.5 [facility] Comment on above: Performed By: #### C BC #### [facility] [address] [place] [address] Dr. Thierno Phipps PLT 626 103/ul Critically high 150-450 [facility] Comment on above: Performed By: #### C BC #### [facility] [address] [place] [address] Dr. Thierno Phipps RBC 5.33 106/ul Normal 4.20-5.40 [facility] Comment on above: Performed By: #### C BC #### [facility] [address] [place] [address] Dr. Thierno Phipps WBC 9.6 103/ul Normal 4.0-11.0 [facility] Comment on above: Performed By: #### C BC #### [facility] [address] [place], [place] [id number] Dr. Thierno Phipps LIPID PROFILEon 02-09-2023 CHOL-HDL RATIO NORM SEE BELOW Normal [facility] Comment on above: Result Comment: 3.3 - 4.4 LOW RISK 4.4 - 7.1 AVERAGE RISK 7.1 - 11.0 MODERATE RISK >11.0 HIGH RISK Performed By: #### L IPID, CMP #### [facility] [address] [address] [address] Thierno Phipps Cholesterol [Mass/Vol] 267 mg/dL Critically high <=200 [facility] Comment on above: Performed By: #### L IPID, CMP #### [facility] [address] [address] [address] Thierno Phipps Cholesterol in HDL [Mass/Vol] 35 mg/dL Critically low 40-60 [facility] Comment on above: Performed By: #### L IPID, CMP #### [facility] [address] [address] [address] Thierno Phipps Cholesterol in LDL [Mass/Vol] 186.0 mg/dL Normal [facility] Comment on above: Performed By: #### L IPID, CMP #### [facility] [address] [place] [address] Dr. Thierno Phipps Cholesterol.total/Cholest janay in HDL [Mass ratio] 7.6 {ratio} Normal [facility] Comment on above: Performed By: #### L IPID, CMP #### [facility] [address] [address] [address] Thierno Phipps HDL NORMAL > or = 60 mg/dl - LOW CARDIOVASCULAR RISK <40 mg/dl - HIGH CARDIOVASCULAR RISK Normal [facility] Comment on above: Performed By: #### L IPID, CMP #### [facility] [address] [address] [address] Thierno Phipps LDL CALC NORMAL SEE BELOW Normal [facility] Comment on above: Result Comment: <100 mg/dl OPTIMAL 100 - 129 mg/dl NEAR OR ABOVE OPTIMAL 130 - 159 mg/dl BORDERLINE HIGH 160 - 189 mg/dl HIGH >190 mg/dl VERY HIGH Performed By: #### L IPID, CMP #### [facility] [address] [address] [address] Thierno Phipps Triglyceride [Mass/Vol] 230 mg/dL Critically high <=150 [facility] Comment on above: Performed By: #### L IPID, CMP #### [facility] [address] [address] [address] Thierno Phipps VLDL CALC 46.0 mg/dL Normal [facility] Comment on above: Performed By: #### L IPID, CMP #### [facility] [address] [place] [address] Dr. Thierno Phipps MICROALBUMIN, RAND URon 04-0 mALB <1.3 Normal <=30.0 [facility] Comment on above: Performed By: #### M ALBR #### [facility] [address] [place] [address] Dr. Thierno Phipps PROF 14(COMP METB)on 023 Albumin [Mass/Vol] 4.0 g/dL Normal 3.4-5.0 [facility] Comment on above: Performed By: #### L IPID, CMP #### [facility] [address] [place] [address] Dr. Thierno Phipps Albumin/Globulin [Mass ratio] 1.0 {ratio} Normal [facility] Comment on above: Performed By: #### L IPID, CMP #### [facility] [address] [place] [address] Dr. Thierno Phipps ALP [Catalytic activity/Vol] 93 U/L Normal 46-116 [facility] Comment on above: Performed By: #### L IPID, CMP #### [facility] [address] [place] [address] Dr. Thierno Phipps ALT [Catalytic activity/Vol] 30 U/L Normal 14-59 [facility] Comment on above: Performed By: #### L IPID, CMP #### [facility] [address] [place] [address] Dr. Thierno Phipps Anion gap [Moles/Vol] 7.9 mmol/L Normal [facility] Comment on above: Performed By: #### L IPID, CMP #### [facility] [address] [place] [address] Dr. Thierno Phipps AST [Catalytic activity/Vol] 18 U/L Normal 15-37 [facility] Comment on above: Performed By: #### L IPID, CMP #### [facility] [address] [address] [address] Thierno Phipps Bilirubin [Mass/Vol] 0.4 mg/dL Normal 0.2-1.0 [facility] Comment on above: Performed By: #### L IPID, CMP #### [facility] [address] [place] [address] Dr. Thierno Phipps Calcium [Mass/Vol] 10.0 mg/dL Normal 8.5-10.1 [facility] Comment on above: Performed By: #### L IPID, CMP #### [facility] [address] [address] [address] Thierno Phipps Chloride [Moles/Vol] 101 mmol/L Normal 98-107 [facility] Comment on above: Performed By: #### L IPID, CMP #### [facility] [address] [place] [address] Dr. Thierno Phipps CO2 [Moles/Vol] 32.9 mmol/L Critically high 21.0-32.0 [facility] Comment on above: Performed By: #### L IPID, CMP #### [facility] [address] [place] [address] Dr. Thierno Phipps Creatinine [Mass/Vol] 0.97 mg/dL Normal 0.55-1.02 [facility] Comment on above: Performed By: #### L IPID, CMP #### [facility] [address] [place] [address] Dr. Thierno Phipps EGFR-AF ANGUILLAN >60 Normal >=60 [facility] Comment on above: Performed By: #### L IPID, CMP #### [facility] [address] [place] [address] Dr. Thierno Phipps EGFR-NON AF ANGUILLAN 56 mL/min/1.73m2 Critically low >=60 [facility] Comment on above: Performed By: #### L IPID, CMP #### [facility] [address] [place] [address] Dr. Thierno Phipps Globulin (S) [Mass/Vol] 4.0 g/dL Normal T [facility] Comment on above: Performed By: #### L IPID, CMP #### [facility] [address] [address] [address] Thierno Phipps Glucose [Mass/Vol] 119 mg/dL Critically high 74-106 [facility] Comment on above: Performed By: #### L IPID, CMP #### [facility] [address] [address] [address] Thierno Phipps Potassium [Moles/Vol] 3.8 mmol/L Normal 3.5-5.1 [facility] Comment on above: Performed By: #### L IPID, CMP #### [facility] [address] [address] [address] Thierno Phipps Protein [Mass/Vol] 8.0 g/dL Normal 6.4-8.2 [facility] Comment on above: Performed By: #### L IPID, CMP #### [facility] [address] [place] [address] Dr. Thierno Phipps Sodium [Moles/Vol] 138 mmol/L Normal 136-145 [facility] Comment on above: Performed By: #### L IPID, CMP #### [facility] [address] [address] [address] Thierno Phipps Urea nitrogen [Mass/Vol] 14.0 mg/dL Normal 7.0-18.0 [facility] Comment on above: Performed By: #### L IPID, CMP #### [facility] [address] [address] [address] Thierno Phipps Urea nitrogen/Creatinine [Mass ratio] 14.4 mg/mg Normal [facility] Comment on above: Performed By: #### L IPID, CMP #### [facility] [address] [address] [address] Thierno Phipps XR LSPINE 2_3 VIEWSon [...] RAIN HOWE Date: 2022-10-19 21:47 Normal [facility] XR HIP RT 2 3V W PELVISon [...] CHAITANYA DAVIS Date: 2022-10-18 16:56 Normal [facility] CT LUNG CANCER SCREENINGon 0 05-17-2022 CT [...] by: CHAITANYA CROCKER Date: 2022-05-17 15:19 Normal [facility] XR CHEST 2 Von 04-13-2022 XR CHEST [...] by: WICHO CUETO Date: 2022-04-13 13:32 Normal [facility] XR KUB 1 VIEWon 04-13-2022 XR [...] by: CHAITANYA CROCKER Date: 2022-04-13 17:20 Normal [facility] Vital Signs Date Time Vital Sign Value Performing Clinician Facility 09-23-2024 14:23-0500 Body height 162.6 cm Keira Coytrick [employer] Work Phone: [facility] 09-23-2024 14:23-0500 Body mass index (BMI) [Ratio] 24.2 kg/m2 Keira Coytrick [employer] Work Phone: [facility] 09-23-2024 14:23-0500 Body temperature 96.6 [degF] Keira Coytrick [employer] Work Phone: [facility] 09-23-2024 14:23-0500 Body weight 63.96 kg Keira Coytrick [employer] Work Phone: [facility] 09-23-2024 14:23-0500 Diastolic blood pressure 62 mm[Hg] Keira Coytrick [employer] Work Phone: [facility] 09-23-2024 14:23-0500 Heart rate 77 /min Keira Church [employer] Work Phone: [facility] 09-23-2024 14:23-0500 Respiratory rate 20 /min Keira Church [employer] Work Phone: [facility] 09-23-2024 14:23-0500 SaO2% (BldA) [Mass fraction] 94 % Keira Church [employer] Work Phone: [facility] 09-23-2024 14:23-0500 Systolic blood pressure 138 mm[Hg] Keira Church [employer] Work Phone: [facility] 07-24-2024 16:15-0400 Body height 162.6 cm Keira Church [employer] Work Phone: [facility] 07-24-2024 16:15-0400 Body mass index (BMI) [Ratio] 24.37 kg/m2 Keira Church [employer] Work Phone: [facility] 07-24-2024 16:15-0400 Body temperature 97.7 [degF] Keira Church [employer] Work Phone: [facility] 07-24-2024 16:15-0400 Body weight 64.41 kg Keira Church [employer] Work Phone: [facility] 07-24-2024 16:15-0400 Diastolic blood pressure 80 mm[Hg] Keira Church [employer] Work Phone: [facility] 07-24-2024 16:15-0400 Heart rate 63 /min Keira Church [employer] Work Phone: [facility] Comment on above: 97% O2 07-24-2024 16:15-0400 Systolic blood pressure 130 mm[Hg] Keira Church [employer] Work Phone: [facility] 02-13-2024 11:27-0400 Body height 160.02 cm [facility] 02-13-2024 11:27-0400 Body mass index (BMI) [Ratio] 22.4 kg/m2 [facility] 02-13-2024 11:27-0400 Body weight 57.6 kg [facility] 02-13-2024 11:27-0400 Diastolic blood pressure 53 mm[Hg] [facility] 02-13-2024 11:27-0400 Heart rate 60 /min [facility] 02-13-2024 11:27-0400 Systolic blood pressure 89 mm[Hg] [facility] 08-14-2023 15:00-0400 Body height 160.02 cm Olga Schwartz Other [facility] Other 08-14-2023 15:00-0400 Body mass index (BMI) [Ratio] 24.37 kg/m2 Olga Schwartz Other [facility] Other 08-14-2023 15:00-0400 Body weight 62.42 kg Olga Schwartz Other [facility] Other 08-14-2023 15:00-0400 Diastolic blood pressure 69 mm[Hg] Olga Schwartz Other [facility] Other 08-14-2023 15:00-0400 Systolic blood pressure 107 mm[Hg] Olga Schwartz Other [facility] Other 05-16-2023 14:00-0400 Body height 160.02 cm Olga Schwartz Other [facility] Other 05-16-2023 14:00-0400 Body mass index (BMI) [Ratio] 24.8 kg/m2 Olga Schwartz Other [facility] Other 05-16-2023 14:00-0400 Body weight 63.5 kg Olga Schwartz Other [facility] Other 05-16-2023 14:00-0400 Diastolic blood pressure 65 mm[Hg] Olga Schwartz Other [facility] Other 05-16-2023 14:00-0400 Systolic blood pressure 119 mm[Hg] Olga Schwartz Other [facility] Other 02-07-2023 16:00-0400 Body height 160.02 cm Olga Schwartz Other [facility] Other 02-07-2023 16:00-0400 Body mass index (BMI) [Ratio] 25.33 kg/m2 Olga Schwartz Other [facility] Other 02-07-2023 16:00-0400 Body weight 64.86 kg Olga Schwartz Other [facility] Other 02-07-2023 16:00-0400 Diastolic blood pressure 82 mm[Hg] Olga Schwartz Other [facility] Other 02-07-2023 16:00-0400 SaO2% (BldA) [Mass fraction] 97 % Olga Schwartz Other [facility] Other 02-07-2023 16:00-0400 Systolic blood pressure 124 mm[Hg] Olga Schwartz Other [facility] Other Encounters Encounter Date Encounter Type Care Provider Facility Start: 12-17-2024 End: 12-17-2024 Refill Dot Figueroa MA [facility] Comment on above: Lumbar back pain Start: 11-13-2024 End: 11-13-2024 Refill Keira Church NP Work Phone: [facility] Comment on above: Lumbar back pain; Cerebrovascular accident (CVA), unspecified mechanism (CMS/HCC) Start: 10-14-2024 End: 10-16-2024 Refill Dot Figueroa MA [facility] Comment on above: Lumbar back pain Start: 09-23-2024 End: 09-23-2024 Office outpatient visit 15 minutes Keira Church [employer] Work Phone: [facility] Comment on above: Prediabetes (Primary Dx); Essential (primary) hypertension (CMS/HCC); Mixed hyperlipidemia (CMS/HCC) Start: 09-23-2024 End: 09-23-2024 ambulatory KEIRA CHURCH Not Available Start: 09-23-2024 End: 09-23-2024 Bamboo flowsheet Keira Church POWER BALLAST MACHINE OPERATOR Work Phone: [facility] Start: 09-23-2024 End: 09-23-2024 Bamboo flowsheet Keira Cheathamk POWER BALLAST MACHINE OPERATOR Work Phone: [facility] Start: 09-22-2024 ambulatory SAIRA Valente SHANNAN [facility] Start: 09-11-2024 End: 09-11-2024 Refill Dot Figueroa MA [facility] Comment on above: Lumbar back pain Start: 09-09-2024 End: 09-16-2024 Orders Only Keira Church POWER BALLAST MACHINE OPERATOR Work Phone: [facility] Comment on above: Type 2 diabetes jennifer itus with chronic kidney disease, without long-term current use of insulin, unspecified CKD stage (CMS/HCC) (Primary Dx) Start: 09-03-2024 End: 09-03-2024 Clinisync Result Encounter Keira Church POWER BALLAST MACHINE OPERATOR Work Phone: [facility] Unsolicited Start: 09-03-2024 End: 09-03-2024 Clinisync Result Encounter Keira Church POWER BALLAST MACHINE OPERATOR Work Phone: [facility] Unsolicited Start: 09-03-2024 End: 09-03-2024 Refill Keira Cheathamk P[employer] BALLAST MACHINE OPERATOR Work Phone: [facility] Comment on above: Restless leg syndrom e Start: 08-13-2024 End: 08-13-2024 Clinisync Result Encounter Generic External Data Provider [facility] Unsolicited Start: 08-13-2024 End: 08-13-2024 Clinisync Result Encounter Generic External Data Provider [facility] Unsolicited Start: 08-06-2024 End: 08-12-2024 Refill Keira Cheathamk POWER BALLAST MACHINE OPERATOR Work Phone: [facility] Comment on above: Lumbar back pain (Pr imary Dx); Hyperlipidemia, unspecified hyperlipidemia type (CMS/HCC); Essential (primary) hypertension (CMS/HCC); Restless leg syndrome; Cerebrovascular accident (CVA), unspecified mechanism (CMS/HCC) Start: 07-24-2024 End: 07-24-2024 Initial preventive medicine new patient 63yrs&> Keira Cheathamk POWER BALLAST MACHINE OPERATOR Work Phone: [facility] Comment on above: Essential (primary) hypertension (CMS/HCC) (Primary Dx); Mixed hyperlipidemia (CMS/HCC); Nicotine dependence, cigarettes, uncomplicated; Cerebrovascular accident (CVA), unspecified mechanism (CMS/HCC) Start: 07-24-2024 End: 07-24-2024 ambulatory KEIRA CHURCH Not Available Start: 07-24-2024 End: 07-24-2024 Bamboo flowsheet Keira Church POWER BALLAST MACHINE OPERATOR Work Phone: [facility] Start: 07-24-2024 End: 07-24-2024 Bamboo flowsheet Keira Coytrick POWER BALLAST MACHINE OPERATOR Work Phone: [facility] Start: 07-24-2024 Patient encounter status Keira Cheathamk POWER BALLAST MACHINE OPERATOR Work Phone: [facility] Start: 07-23-2024 Patient encounter status Keira Cheathamk POWER BALLAST MACHINE OPERATOR Work Phone: [facility] Work Phone: Start: 04-30-2024 End: 04-30-2024 ambulatory NESTOR IVERSON Not Available Start: 04-02-2024 End: 04-02-2024 ambulatory PETERSONAB [facility] Start: 03-26-2024 ambulatory Neto Hooper Facility:[facility] Start: 03-25-2024 End: 03-25-2024 ambulatory DAWIT BARBER Not Available Start: 03-19-2024 End: 03-19-2024 ambulatory Olga Schwartz Facility:[facility] Start: 02-13-2024 End: 02-13-2024 ambulatory [facility] Work Phone: Start: 02-13-2024 End: 02-13-2024 Patient encounter procedure [facility] Work Phone: Start: 02-12-2024 ambulatory [facility] Start: 02-12-2024 ambulatory [facility] Start: 02-09-2024 Non-patient / Non-visit [facility] Work Phone: Start: 02-08-2024 End: 02-11-2024 Emergency department patient visit [facility] Start: 02-08-2024 Non-patient / Non-visit [facility] Work Phone: Start: 01-15-2024 Non-patient / Non-visit [facility] Work Phone: Start: 12-22-2023 Non-patient / Non-visit [facility] Work Phone: Start: 10-24-2023 End: 10-24-2023 ambulatory Olga Schwartz Other [employer] Other Start: 10-24-2023 Telephone encounter Olga Schwartz [facility] Start: 09-22-2023 End: 09-22-2023 ambulatory Olga Schwartz Other [employer] Other Start: 09-22-2023 Telephone encounter Olga Schwartz [facility] Start: 08-23-2023 End: 08-23-2023 ambulatory Olga Schwartz Other [employer] Other Start: 08-23-2023 Telephone encounter Olga Schwartz [facility] Start: 08-14-2023 End: 08-14-2023 ambulatory Olga Schwartz Other [employer] Other Start: 08-14-2023 Office outpatient vi sit 15 minutes Olga Schwartz [facility] Start: 08-14-2023 Telephone encounter Olga Schwartz [facility] Start: 07-24-2023 End: 07-24-2023 ambulatory Olga Schwartz Other [employer] Other Start: 07-24-2023 Telephone encounter Olga Schwartz [facility] Start: 06-23-2023 End: 06-23-2023 ambulatory Olga Schwartz Other [employer] Other Start: 06-23-2023 Telephone encounter Olga Schwartz [facility] Start: 06-12-2023 End: 06-12-2023 ambulatory Olga Schwartz Other [employer] Other Start: 06-12-2023 Telephone encounter Olga Schwartz [facility] Start: 05-16-2023 End: 05-16-2023 ambulatory Olga Schwartz Other [employer] Other Start: 05-16-2023 Office outpatient vi sit 15 minutes Olga Schwartz [facility] Start: 02-24-2023 End: 02-24-2023 ambulatory Olga Schwartz Other [employer] Other Start: 02-24-2023 Telephone encounter Olga Schwartz [facility] Start: 02-13-2023 End: 02-13-2023 ambulatory Fernando Silverio Other [employer] Other Start: 02-13-2023 Telephone encounter Olga Schwartz [facility] Start: 02-09-2023 End: 02-10-[address] OLGA SCHWARTZ Facility:[facility] Start: 02-07-2023 End: 02-07-2023 ambulatory Olga Schwartz Other [employer] Other Start: 02-07-2023 Office outpatient vi sit 25 minutes Olga Schwartz [facility] Start: 10-18-2022 End: 10-19-[address] OLGA SCHWARTZ Facility:[facility] Start: 10-14-2022 Pre-procedure evaluation check Olga Schwartz Other [employer] Other Start: 05-17-2022 End: 05-18-[address] OLGA SCHWARTZ Facility:[facility] Start: 04-13-2022 End: 04-14-[address] OLGA SCHWARTZ Facility:[facility] Procedures Date Procedure Procedure Detail Performing Clinician Start: 09-03-2024 ALL CBC WITH AUTO DIFF Keira Church POWER BALLAST MACHINE OPERATOR Work Phone: Start: 08-13-2024 ALL CBC WITH AUTO DIFF Generic External Data Provider Start: 07-24-2024 H/O: artificial joint Presence of right artificial shoulder joint Keira Church POWER BALLAST MACHINE OPERATOR Work Phone: Start: 02-08-2024 Bacteria identified in Urine by Culture Start: 11-22-2018 Screening for malign ant neoplasm of cervix Olga Schwartz Other Plan of Treatment Date Care Activity Detail Author Start: 12-10-2026 Glaucoma screening Diabetes: R etinopathy Screening [facility] Start: 03-19-2026 Glaucoma screening Diabetes: R etinopathy Screening [facility] Start: 07-24-2025 Medicare Annual Wellness (AWV) Medicare Annual Wellness (AWV) [facility] Start: 12-24-2024 End: 09-23-2025 CBC W Auto Differential panel - Blood CBC and differential Lab Routine Prediabetes Expected: 12/24/2024 (Approximate), Expires: 09/23/2025 [facility] Comment on above: Expected: 12/24/2024 (Approximate), Expires: 09/23/2025 Start: 12-24-2024 End: 09-23-2025 Comprehensive metabolic 2000 panel - Serum or Plasma Comprehensive metabolic panel Lab Routine Prediabetes Expected: 12/24/2024 (Approximate), Expires: 09/23/2025 [facility] Comment on above: Expected: 12/24/2024 (Approximate), Expires: 09/23/2025 Start: 12-24-2024 End: 09-23-2025 Hemoglobin A1c/Hemoglobin.total in Blood Hemoglobin A1c Lab Routine Prediabetes Expected: 12/24/2024 (Approximate), Expires: 09/23/2025 [facility] Comment on above: Expected: 12/24/2024 (Approximate), Expires: 09/23/2025 Start: 12-23-2024 End: 12-23-2024 Patient encounter procedure 12/23/2024 2:00 PM EST Office Visit [facility] [address] [place] [id number] Keira Church NP [address] [place] [phone] [facility] Start: 09-23-2024 End: 09-23-2024 Patient encounter procedure [facility] Comment on above: Arrived Start: 08-20-2024 End: 08-20-2024 Patient encounter procedure 08/20/2024 2:40 PM EDT Office Visit [facility] [address] [phone] Nestor Iverson NP [address] [place] [address] [facility] Start: 07-24-2024 End: 07-24-2024 Patient encounter procedure 07/24/2024 4:30 PM EDT Office Visit [facility] [address] [place] [address] Keira Church NP [address] [place] [phone] Arrived [facility] Comment on above: Arrived Start: 07-24-2024 End: 07-23-2025 CBC W Auto Differential panel - Blood CBC and differential Lab Routine Essential (primary) hypertension (CMS/HCC) Mixed hyperlipidemia (CMS/HCC) Expected: 07/24/2024 (Approximate), Expires: 07/23/2025 [facility] Comment on above: Expected: 07/24/2024 (Approximate), Expires: 07/23/2025 Start: 07-24-2024 End: 07-23-2025 Comprehensive metabolic 2000 panel - Serum or Plasma Comprehensive metabolic panel Lab Routine Essential (primary) hypertension (CMS/HCC) Mixed hyperlipidemia (CMS/HCC) Expected: 07/24/2024 (Approximate), Expires: 07/23/2025 [facility] Comment on above: Expected: 07/24/2024 (Approximate), Expires: 07/23/2025 Start: 07-24-2024 End: 07-23-2025 Hemoglobin A1c/Hemoglobin.total in Blood Hemoglobin A1c Lab Routine Essential (primary) hypertension (CMS/HCC) Mixed hyperlipidemia (CMS/HCC) Cerebrovascular accident (CVA), unspecified mechanism (CMS/HCC) Expected: 07/24/2024 (Approximate), Expires: 07/23/2025 [facility] Comment on above: Expected: 07/24/2024 (Approximate), Expires: 07/23/2025 Start: 07-24-2024 End: 07-23-2025 Lipid 1996 panel - Serum or Plasma Lipid panel Lab Routine Mixed hyperlipidemia (CMS/HCC) Expected: 07/24/2024 (Approximate), Expires: 07/23/2025 [facility] Comment on above: Expected: 07/24/2024 (Approximate), Expires: 07/23/2025 Start: 07-24-2024 End: 07-23-2025 TSH W/REFLEX TO FT4 TSH W/REFLEX TO FT4 Lab Routine Essential (primary) hypertension (CMS/HCC) Expected: 07/24/2024 (Approximate), Expires: 07/23/2025 [facility] Work Phone: Comment on above: Expected: 07/24/2024 (Approximate), Expires: 07/23/2025 Start: 07-07-2024 Influenza vaccination Influenza Vacc ine (#1) [facility] Start: 02-13-2024 Patient referral [facility] Work Phone: Start: 11-12-2014 Pneumococcal Vaccine : 65+ Years (2 of 2 - PCV) Pneumococcal Vaccine: 65+ Years (2 of 2 - PCV) [facility] Start: 1967 Urine screening for protein Diabetes: Urine Protein Screening [facility] Start: 1958 Glaucoma screening Diabetes: R etinopathy Screening [facility] Start: 1950 Hemoglobin A1c measurement Diabetes: Hemoglobin A1C [facility] Microalbumin/Creatin ine panel in random Urine Microalbumin / creatinine urine ratio Lab Routine Prediabetes Ordered: 09/23/2024 [facility] Work Phone: Comment on above: Ordered: 09/23/2024 Patient referral [facility] Work Phone: Immunizations Immunization Date Immunization Notes Care Provider [facility] 08-19-2024 influenza, seasonal, injectable 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 purified surface antigen) Olga Schwartz Other [employer] Other 08-10-2022 influenza virus vaccine, unspecified formulation [facility] Payers Date Payer Category Payer Medicare ANTH MEDICARE ADVANTAGE ANTH MEDICARE ADVANTAGE [id number] 2023-Present [address] [place] [address] [id number] 2023 Medicare (Managed Care) [employer] CH[employer]L ADVANTAGE [id number] 2018 Medicaid [id number] 1959 Medicaid [id number] 1959 Medicare [id number] 1948 Unknown [id number] [id number]. 593 1948 Unknown [id number] [id number]. 593 1948 Unknown [id number] [id number]. 593 1948 Unknown [id number] [id number]. 593 1948 Unknown [id number] [id number]. 1286 1948 Unknown [id number] [id number]. 1259 1948 Unknown [id number] [id number]. 1259 1948 Unknown [id number] [id number]. 1259 1948 Unknown [id number] [id number]. 1259 1948 Unknown [id number] [id number]. 1286 1948 Unknown [id number] [id number]. 1286 1948 Unknown [id number]. 1286 Social History Date Type Detail Facility Unknown if ever smoked [employer] Other Start: 04-30-2024 End: 07-24-2024 Sex Assigned At [facility] Other Start: 1950 Sex Assigned At Female [facility] Start: 03-21-2024 End: 07-24-2024 Tobacco smoking status [facility] Smokes tobacco daily [facility] History of tobacco use Cigarette Smoker [facility] History of tobacco use Passive smoker [facility] Start: 04-30-2024 End: 07-24-2024 Alcoholic beverage intake Lifetime non-drinker (finding) [facility] Start: 04-30-2024 End: 07-24-2024 History of Social function [facility] Start: 1950 Sex assigned at Not on file [facility] Clinical Notes 02-07-2023 to 12-17-2024 Telephone Encounter - Dot Figueroa MA - 12/17/2024 1:58 PM ESTTelephone Encounter - Dot Figueroa MA - 12/17/2024 1:58 PM ESTTelephone Encounter - Dot Figueroa MA - 10/14/2024 11:37 AM EST Note Date & Type Note Facility 12-17-2024 Telephone encounter Note MARILIN:09/23/2024 NOV:12/23/2024 [facility] 12-17-2024 Miscellaneous Notes MARILIN:09/23/2024 NOV:12/23/2024 documented in this encounter [facility] 10-14-2024 Telephone encounter Note MARILIN:09/23/2024 NOV:12/23/2024 [facility] 10-14-2024 Miscellaneous Notes MARILIN:09/23/2024 NOV:12/23/2024 documented in this encounter [facility] 09-24-2024 History of Presen t illness Narrative Associated Problem(s): Prediabetes A1C 6.1% Currently taking Farxiga 5mg Last Eye Exam done 6 months ago- @ [place], [place] Associated Problem(s): Type 2 diabetes mellitus with chronic kidney disease, without long-term current use of insulin (HCC) (CMS/HCC) Associated Problem(s): Hyperlipidemia, unspecified (CMS/HCC) Currently taking atorvastatin 80mg Denies any myalgias. Continue current regimen. Associated Problem(s): Essential (primary) hypertension (CMS/HCC) Currently taking Metoprolol 25mg Checks BP at home; Averages are 130's/70's. Denies orthostatic changes, dizziness, cough, shortness of breath, swelling in extremities. Continue current regimen. Given BP log, advised pt to record BP and bring log back with them to next visit. Images from the original note were not included. Subjective Patient ID: Lesly Steve is a 74 y.o. female who presents for Follow-up (2 m follow up/Er 09/21/24 ). HPI Specialists: Dr. Tomlin- Heme/Onc for thrombocytosis Cardiology- Dr. Neto Hooper or Dr. Rasheed? Neurology- Dr. Barber [facility]- [facility] HTN: Currently taking Metoprolol 25mg Checks BP at home; Averages are 130's/70's. Denies orthostatic changes, dizziness, cough, shortness of breath, swelling in extremities. Continue current regimen. Given BP log, advised pt to record BP and bring log back with them to next visit. HLD: Currently taking atorvastatin 80mg Denies any myalgias. Continue current regimen. Component Ref Range & Units 2 wk ago (09/03/24) 2 wk ago (09/03/24) 2 wk ago (09/03/24) 1 mo ago (08/13/24) 1 mo ago (08/13/24) 1 mo ago (08/13/24) TRIGLYCERIDES <=150 mg/dL 102 142 R 36.5 R 1.9 R 136 R 36.0 R CHOLESTEROL <=200 mg/dL 112 4.4 R 0.1 R 3.9 R 0.1 R HDL CHOLESTEROL 40 - 60 mg/dL 44 10.9 R 3.5 R 12.6 R 3.8 R Comment: > or =60 mg/dl - LOW CARDIOVASCULAR RISK <40 mg/dl - HIGH CARDIOVASCULAR RISK LDL CHOLESTEROL CALCULATED mg/dL 47.6 98 R 2.5 R 107 High R 2.6 R Comment: <100 mg/dl OPTIMAL 100-129 mg/dl NEAR OR ABOVE OPTIMAL 130-159 mg/dl BORDERLINE HIGH 160-189 mg/dl HIGH >190 mg/dl VERY HIGH VLDL CHOLESTEROL mg/dL 20.4 0.4 R 0.6 R 0.5 R 0.5 R CHOL HDL RATIO 2.5 21 R 0.01 R 23 R 0.01 R Comment: 3.3 - 4.4 LOW RISK 4.4 - 7.1 AVERAGE RISK 7.1 - 11.0 MODERATE RISK >11.0 HIGH RISK ALANINE AMINOTRANSFERASE 20 R 23 R ALKALINE PHOSPHATASE 88 R 78 R TOTAL PROTEIN 7.0 R 7.2 R ALBUMIN LEVEL 3.6 R 3.9 R ALBUMIN GLOBULIN RATIO 1.1 1.2 Resulting Agency [facility] Prediabetes: A1C 6.1% Currently taking Farxiga 5mg Last Eye Exam done 6 months ago- @ [place], [place] Was seen in ED for CVA concerns due to muscle cramps. CT head negative. Labs all WNL except reported slighlty elevated BUN/PALLETIZER. Pt reports she was dehydrated but feels much better now. Review of Systems Constitutional: Negative for activity change, appetite change, chills, diaphoresis, fatigue, fever and unexpected weight change. HENT: Negative for congestion, ear pain, rhinorrhea, sinus pressure, sinus pain, sneezing, sore throat, trouble swallowing and voice change. Eyes: Negative for visual disturbance. Respiratory: Negative for cough, chest tightness, shortness of breath and wheezing. Cardiovascular: Negative for chest pain, palpitations and leg swelling. Gastrointestinal: Negative for abdominal distention, abdominal pain, blood in stool, constipation, diarrhea and vomiting. Genitourinary: Negative for decreased urine volume, dysuria, flank pain, frequency, hematuria and urgency. Musculoskeletal: Negative for arthralgias, gait problem, joint swelling and myalgias. Skin: Negative for rash. Neurological: Negative for dizziness, tremors, syncope, weakness, light-headedness and headaches. Psychiatric/Behavioral: Negative for decreased concentration and suicidal ideas. The patient is not nervous/anxious. Hematological: Does not bruise/bleed easily. Endocrine: Negative for cold intolerance, heat intolerance, polydipsia, polyphagia and polyuria. Objective Physical Exam Vitals reviewed. Constitutional: Appearance: Normal appearance. HENT: Head: Normocephalic and atraumatic. Right Ear: Tympanic membrane normal. Left Ear: Tympanic membrane normal. Nose: Nose normal. Mouth/Throat: Mouth: Mucous membranes are moist. Pharynx: Oropharynx is clear. Eyes: Pupils: Pupils are equal, round, and reactive to light. Cardiovascular: Rate and Rhythm: Normal rate and regular rhythm. Pulses: Normal pulses. Heart sounds: Normal heart sounds. Pulmonary: Effort: Pulmonary effort is normal. Breath sounds: Normal breath sounds. Abdominal: General: Abdomen is flat. Bowel sounds are normal. Palpations: Abdomen is soft. Musculoskeletal: General: Normal range of motion. Cervical back: Normal range of motion. Skin: General: Skin is warm and dry. Capillary Refill: Capillary refill takes less than 2 seconds. Neurological: General: No focal deficit present. Mental Status: She is alert and oriented to person, place, and time. Psychiatric: Mood and Affect: Mood normal. Behavior: Behavior normal. Assessment/Plan Problem List Items Addressed This Visit Essential (primary) hypertension (CMS/HCC) (Chronic) Currently taking Metoprolol 25mg Checks BP at home; Averages are 130's/70's. Denies orthostatic changes, dizziness, cough, shortness of breath, swelling in extremities. Continue current regimen. Given BP log, advised pt to record BP and bring log back with them to next visit. Hyperlipidemia, unspecified (CMS/HCC) Currently taking atorvastatin 80mg Denies any myalgias. Continue current regimen. Prediabetes - Primary A1C 6.1% Currently taking Farxiga 5mg Last Eye Exam done 6 months ago- @ [place], [place] Relevant Orders Microalbumin / creatinine urine ratio Hemoglobin A1c Comprehensive metabolic panel CBC and differential documented in this encounter [facility] 09-11-2024 Telephone encounter Note MARILIN:07/24/2024 NOV:09/24/2024 [facility] 09-11-2024 Miscellaneous Notes MARILIN:07/24/2024 NOV:09/24/2024 documented in this encounter [facility] 07-24-2024 History of Presen t illness Narrative Associated Problem(s): Nicotine dependence, cigarettes, uncomplicated Smoking cessation counseling provided. Associated Problem(s): Stroke (CMS/HCC) Had CVA in 02/[address] Barber and Dr. Johnson Cardiolgy Associated Problem(s): Hyperlipidemia, unspecified (CMS/HCC) Currently taking Atorvastatin 80mg Denies any myalgias. Check Lipid Panel Continue current regimen. Associated Problem(s): Essential (primary) hypertension (CMS/HCC) Currently taking Metoprolol 25mg Checks BP at home; Averages are 130's/140's Denies orthostatic changes, dizziness, cough, shortness of breath, swelling in extremities. Continue current regimen. Given BP log, advised pt to record BP and bring log back with them to next visit. Images from the original note were not included. Subjective Patient ID: Lesly Steve is a 74 y.o. female who presents for Establish Care. HPI Is here today to establish care Referrred by Sada Mendiola Specialists: Dr. Tomlin- Heme/Onc for thrombocytosis Cardiology- Dr. Neto Hooper or Dr. Rasheed? Neurology- Dr. Barber [facility]- [facility] HTN: Currently taking Metoprolol 25mg Checks BP at home; Averages are 130's/140's Denies orthostatic changes, dizziness, cough, shortness of breath, swelling in extremities. Continue current regimen. Given BP log, advised pt to record BP and bring log back with them to next visit. HLD: Currently taking Atorvastatin 80mg Denies any myalgias. Check Lipid Panel Continue current regimen. Fibromyalgia: Chronic Pain: CVA: Had CVA in 02/[address] Barber and Dr. Johnson Cardiolgy Is unsure of preventative Care- Will request results form [facility] and Dr. Schwartz Review of Systems Constitutional: Negative for activity change, appetite change, chills, diaphoresis, fatigue, fever and unexpected weight change. HENT: Negative for congestion, ear pain, rhinorrhea, sinus pressure, sinus pain, sneezing, sore throat, trouble swallowing and voice change. Eyes: Negative for visual disturbance. Respiratory: Negative for cough, chest tightness, shortness of breath and wheezing. Cardiovascular: Negative for chest pain, palpitations and leg swelling. Gastrointestinal: Negative for abdominal distention, abdominal pain, blood in stool, constipation, diarrhea and vomiting. Genitourinary: Negative for decreased urine volume, dysuria, flank pain, frequency, hematuria and urgency. Musculoskeletal: Negative for arthralgias, gait problem, joint swelling and myalgias. Skin: Negative for rash. Neurological: Negative for dizziness, tremors, syncope, weakness, light-headedness and headaches. Psychiatric/Behavioral: Negative for decreased concentration and suicidal ideas. The patient is not nervous/anxious. Hematological: Does not bruise/bleed easily. Endocrine: Negative for cold intolerance, heat intolerance, polydipsia, polyphagia and polyuria. Objective Physical Exam Vitals reviewed. Constitutional: Appearance: Normal appearance. HENT: Head: Normocephalic and atraumatic. Right Ear: Tympanic membrane normal. Left Ear: Tympanic membrane normal. Nose: Nose normal. Mouth/Throat: Mouth: Mucous membranes are moist. Pharynx: Oropharynx is clear. Eyes: Pupils: Pupils are equal, round, and reactive to light. Cardiovascular: Rate and Rhythm: Normal rate and regular rhythm. Pulses: Normal pulses. Heart sounds: Normal heart sounds. Pulmonary: Effort: Pulmonary effort is normal. Breath sounds: Normal breath sounds. Abdominal: General: Abdomen is flat. Bowel sounds are normal. Palpations: Abdomen is soft. Musculoskeletal: General: Normal range of motion. Cervical back: Normal range of motion. Skin: General: Skin is warm and dry. Capillary Refill: Capillary refill takes less than 2 seconds. Neurological: General: No focal deficit present. Mental Status: She is alert and oriented to person, place, and time. Psychiatric: Mood and Affect: Mood normal. Behavior: Behavior normal. Assessment/Plan Problem List Items Addressed This Visit Stroke (CMS/HCC) Had CVA in 02/[address] Barber and Dr. Johnson Cardiolgy Relevant Orders Hemoglobin A1c Essential (primary) hypertension (CMS/HCC) - Primary (Chronic) Currently taking Metoprolol 25mg Checks BP at home; Averages are 130's/140's Denies orthostatic changes, dizziness, cough, shortness of breath, swelling in extremities. Continue current regimen. Given BP log, advised pt to record BP and bring log back with them to next visit. Relevant Orders TSH W/REFLEX TO FT4 Hemoglobin A1c Comprehensive metabolic panel CBC and differential Hyperlipidemia, unspecified (CMS/HCC) Currently taking Atorvastatin 80mg Denies any myalgias. Check Lipid Panel Continue current regimen. Relevant Orders Lipid panel Hemoglobin A1c Comprehensive metabolic panel CBC and differential Nicotine dependence, cigarettes, uncomplicated Smoking cessation counseling provided. Associated Problem(s): Encounter for wellness examination I have reviewed Ht/Wt/BMI, I have reviewed recommended vaccines for patient's age, as well as all recommended screenings I have reviewed available care everywhere notes as well. I have recommended eating a balanced diet, as well as activity as chronic conditions allow It is recommended that the patient have a yearly eye exam, as well as twice a year dental exams Fu in this office for wellness on a yearly basis Diet: Eat three meals per day. Breakfast, lunch, and dinner. Avoid snacking. Avoid eating after 5/6 pm. Daily protein GOAL 35% of your intake; 30g per meal. Daily calorie GOAL 1,800-2,000 per day. Consider tracking your food intake on MyFtinessPal or LoseIt Water: Increase water intake; GOAL 64-80oz of water per day. Exercise: Increase activity. GOAL 30 minutes, 5 days per week. START SLOW. Start with 5 minutes, 5 days per week. Then increase to 10 days, 5 days per week. Continue to increase until you reach the goal. Increase steps; GOAL 10,000 steps per day. Be sure to get adequate sleep; GOAL 6-8 hours of sleep per night. documented in this encounter [facility] 07-24-2024 Instructions Keira Church NP - 07/24/2024 4:30 PM EDT Your blood pressure is GOOD in the office today. Check your blood pressure at home 3 times per week, preferably in the afternoon. Goal <130/90. Record results in blood pressure log. Bring back with you to your next visit. FASTING labs ordered. Nothing to eat or drink for 12 hours prior to blood draw. Water and black coffee ok. Diet: Eat three meals per day. Breakfast, lunch, and dinner. Avoid snacking. Avoid eating after 5/6 pm. Daily protein GOAL 35% of your intake; 30g per meal. Daily calorie GOAL 1,800-2,000 per day. Consider tracking your food intake on MyFtinessPal or LoseIt Water: Increase water intake; GOAL 64-80oz of water per day. Exercise: Increase activity. GOAL 30 minutes, 5 days per week. START SLOW. Start with 5 minutes, 5 days per week. Then increase to 10 days, 5 days per week. Continue to increase until you reach the goal. Increase steps; GOAL 10,000 steps per day. Be sure to get adequate sleep; GOAL 6-8 hours of sleep per night. documented in this encounter [facility] 04-02-2024 Note [facility] Cardiology Clinic Note Chief Complaint: New patient here to establish care. Ref from Dr. Schwartz for bradycardia. She had stroke last month and was admitted to [facility]. Still smokes almost 1 PPD but is trying to cut back. Says she's had mitral valve prolapse forever . Does feel palpitations at times. Thinks she used to see cardiology in [place] years ago. Denies chest pain, SOB, and [...] year ago. 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 She agrees she needs a colonoscopy due to ongoing blood in her stool and LLQ pain. Agrees to referral to Dr. Stevenson. Aug, Hematochezia (ICD-10 - K92.1) as above [employer] Other 04-06-2023 NotePROCEDURE: XR HIP LT 2 [...] Electronically authenticated by: RAIN HOWE Date: 2023-02-09 11:04[facility]04-04-2023 Evaluation note* Encounter Date Diagnosis Assessment Notes [...] OARRS and reviewed pain contract brii Grace. [employer] Other Evaluation noteNo InformationNob[facility] [employer] Other Evaluation noteNoeASIC [employer] Other Evaluation note* Diagnosis Onset Date Resolution Status Seizure acute Stroke [facility] Work Phone: Evaluation note* Diagnosis Lumbar [...] (CMS/HCC)- Primary [facility] Diagnosis Essential (primary) hypertension (CMS/HCC)- Primary Unspecified essential hypertension Mixed hyperlipidemia (CMS/HCC) Mixed hyperlipidemia Nicotine dependence, cigarettes, uncomplicated Cerebrovascular accident (CVA), unspecified mechanism (CMS/HCC) Prediabetes- Primary Other abnormal glucose Essential (primary) hypertension (CMS/HCC) Unspecified essential hypertension Mixed hyperlipidemia (CMS/HCC) Mixed hyperlipidemia [facility] Diagnosis Essential (primary) hypertension (CMS/HCC)- Primary Unspecified essential hypertension Mixed hyperlipidemia (CMS/HCC) Mixed hyperlipidemia Nicotine dependence, cigarettes, uncomplicated Cerebrovascular accident (CVA), unspecified mechanism (CMS/HCC) Prediabetes- Primary Other abnormal glucose Essential (primary) hypertension (CMS/HCC) Unspecified essential hypertension Mixed hyperlipidemia (CMS/HCC) Mixed hyperlipidemia Lumbar back pain Lumbago [facility] Diagnosis Essential (primary) hypertension (CMS/HCC)- Primary Unspecified essential hypertension Mixed hyperlipidemia (CMS/HCC) Mixed hyperlipidemia Nicotine dependence, cigarettes, uncomplicated Cerebrovascular accident (CVA), unspecified mechanism (CMS/HCC) [facility]* Diagnosis Essential (primary) hypertension (CMS/HCC)- Primary Unspecified essential hypertension Mixed hyperlipidemia (CMS/HCC) Mixed hyperlipidemia Nicotine dependence, cigarettes, uncomplicated Cerebrovascular accident (CVA), unspecified mechanism (CMS/HCC) Prediabetes- Primary Other abnormal glucose Essential (primary) hypertension (CMS/HCC) Unspecified essential hypertension Mixed hyperlipidemia (CMS/HCC) Mixed hyperlipidemia Lumbar back pain Lumbago Cerebrovascular accident (CVA), unspecified mechanism (CMS/HCC) documented [...] HAND RECONSTRUCTION Hospitalization History SEE SURGICAL HX [facility] Other History general [facility] Discharge instructionsAmbulatory Orders* Referral to Neurology Time Frame: 02/13/24, Location: None Selected [facility] Work Phone: Summary Purpose Family History Relationship Condition Age at Onset Recorded Date/T sam father Unknown Not Specified Unknown Advance Directives Advance Directive Response Recorded Date/ Time Advance Directives No February 12 10:17am Reason for Referral Reason Needs colonosco py - had imaging in [facility]. Diagnosis 1 LLQ abdominal pain ( R10.32) Referral Organization [facility] Referring Provider First Name Olga Referring Provider Last Name Efren Referring Provider Specialty Family [facility] cine Referred Organization [facility] Referred Address [address], [place],[address] Referred Provider Specialty General Surg glen Referral Priority Routine General Notes Maida Dave 02:01:18 PM >received today, attachments made, waiting for notes to be locked Chief Complaint and Reason for Visit Chief Complaint Amb Documentation Amb Documentation [facility] d/c Reason for Visit Seizure Stroke Additional Source Comments REASON FOR VISIT (unrecogniz ed section and content) Reason Onset Date Comments Med Refill 08/06/2024 Reason Comments Med Change Request Reason Onset Date Comments Med Refill 09/11/2024 Reason Comments Follow-up 2 m follow upEr 09/06 04/29 Reason Onset Date Comments Med Refill 10/14/2024 Reason Comments Establish Care Reason Onset Date Comments Med Refill 11/13/2024 Reason Onset Date Comments Med Refill 12/17/2024 INFORMATION SOURCE (unrecogn ized section and content) DATE CREATED AUTHOR 02/18/2023 [facility] DATE CREATED AUTHOR AUTHOR'S ORGANIZ ATION 02/13/2024 [facility] DATE CREATED AUTHOR AUTHOR'S ORGANIZ ATION 03/24/2024 [facility] DATE CREATED AUTHOR AUTHOR'S ORGANIZ ATION 03/28/2024 [facility] DATE CREATED AUTHOR AUTHOR'S ORGANIZ ATION 04/03/2024 [facility] DATE CREATED AUTHOR AUTHOR'S ORGANIZ ATION 09/25/2024 [facility] DATE CREATED AUTHOR AUTHOR'S ORGANIZ ATION 09/30/2024 [facility] Care Teams (unrecognized sec tion and content) [...] February 13, 2024 End: February 13, 2024 Heatset Winder Operator Relationship Specialty Start Date End Date Olga Schwartz MD [address] [place] [address] PCP - General Family Medicine 03/25/24 Heatset Winder Operator Relationship Specialty Start Date End Date Olga Schwartz MD [address] [place] [address] PCP - General Family Medicine 03/25/24 Heatset Winder Operator Relationship Specialty Start Date End Date Ethan Bonilla MD [address] [place] [address] PCP - General Family Medicine 08/15/24 Keira Church NP [address] [place] [address] Nurse Practitioner Family Medicine 08/15/24 Heatset Winder Operator Relationship Specialty Start Date End Date Ethan Bonilla MD [address] [place], [place] [address] PCP - General Family Medicine 08/15/24 Keira Church NP [address] [place] [address] Nurse Practitioner Family Medicine 08/15/24 Heatset Winder Operator Relationship Specialty Start Date End Date Ethan Bonilla MD [address] [place], [place] [address] PCP - General Family Medicine 08/15/24 Keira Church NP [address] [place] [address] Nurse Practitioner Family Medicine 08/15/24 Heatset Winder Operator Relationship Specialty Start Date End Date Ethan Bonilla MD [address] [place], [place] [address] PCP - General Family Medicine 08/15/24 Keira Church NP [address] [place] [address] Nurse Practitioner Family Medicine 08/15/24 Heatset Winder Operator Relationship Specialty Start Date End Date Ethan Bonilla MD [address] [place], [place] [address] PCP - General Family Medicine 08/15/24 Keira Church NP [address] [place] [address] Nurse Practitioner Family Medicine 08/15/24 Heatset Winder Operator Relationship Specialty Start Date End Date Olga Schwartz MD [address] [place] [address] PCP - General Family Medicine 03/25/24 Heatset Winder Operator Relationship Specialty Start Date End Date Ethan Bonilla MD [address] [place] [address] PCP - General Family Medicine 08/15/24 Keira Church NP [address] [place] [address] Nurse Practitioner Family Medicine 08/15/24 Heatset Winder Operator Relationship Specialty Start Date End Date Olga Schwartz MD [address] [place] [address] PCP - General Family Medicine 03/25/24 Heatset Winder Operator Relationship Specialty Start Date End Date Ethan Bonilla MD [address] [place] [address] PCP - General Family Medicine 08/15/24 Keira Church NP [address] [place] [place] [address] Nurse Practitioner Family Medicine 08/15/24 Goals (unrecognized [...] BE BASED ON THE PRIMARY CLINICAL RECORDS. [facility] [facility]. provides no warranty or guarantee of the accuracy or completeness of information in this document.
[2024-12-20 09:23] LABS: Basophils Percent Auto 0.5 % (0.2-2.0); Eosinophils Absolute Auto 0.4 10^3/uL (0.0-0.7); Eosinophils Percent Auto 5.2 % (0.9-7.0); Hematocrit 49.7 % (36.0-48.0); Hemoglobin 16.2 g/dL (12.0-16.0); Immature Granulocytes Abs Auto 0.01 10^3/uL (0.00-0.03); Immature Granulocytes Pct Auto 0.1 % (0.0-0.5); Mean Corpuscular HGB Conc 32.6 g/dL (29.9-35.2); Mean Corpuscular Hemoglobin 33.3 pg (26.7-34.0); Mean Corpuscular Volume 102.3 fL (81.0-99.0); Mean Platelet Volume 10.7 fL (9.5-13.5); Monocytes Absolute Auto 0.7 10^3/uL (0.3-0.8); Monocytes Percent Auto 8.5 % (1.7-12.0); Neutrophils Absolute Auto 4.8 10^3/uL (1.4-6.5); Neutrophils Percent Auto 60.7 % (43.0-75.0); Platelet Count 546 10^3/uL (150-450); Red Blood Count 4.86 10^6/uL (4.20-5.40); Red Cell Distribution Width 12.4 % (11.0-15.0); White Blood Count 7.9 10^3/uL (4.0-11.0)
[2024-12-20 09:47] LABS: Creatinine Urine Random 103.37 mg/dL (20.00-300.00); Microalbum Creatinine Ratio Ur 12.5 mg/g (0.0-29.9); Microalbumin Urine Random 1.3 mg/dL (<=30.0)
[2024-12-20 09:50] LABS: Alanine Aminotransferase 23 U/L (14-59); Albumin Globulin Ratio 1.1; Alkaline Phosphatase 96 U/L (46-116); Anion Gap 10.7; Aspartate Amino Transferase 30 U/L (15-37); BUN Creatinine Ratio 14.3; Bilirubin Total 0.5 mg/dL (0.2-1.0); Calcium 9.4 mg/dL (8.5-10.1); Carbon Dioxide 30.8 mmol/L (21.0-32.0); Chloride 102 mmol/L (98-107); Estimated GFR (African America >60 (>=60 mL/min/1.73m^2); Estimated GFR (Non-African Ame 51 (>=60 mL/min/1.73m^2); Globulin 3.5 g/dL; Glucose 111 mg/dL (74-106); Potassium 4.5 mmol/L (3.5-5.1); Sodium 139 mmol/L (136-145); Total Protein 7.5 g/dL (6.4-8.2)
[2024-12-20 09:53] LABS: Estimated Average Glucose 120 mg/dL; Glycohemoglobin A1C 5.8 % (4.5-6.2)
== END 2024-12-20 08:58 | disposition home or self-care (01) ==
LOC: LAB 09:00
DX: R73.03 Prediabetes (principal)
CPT/HCPCS: 36415; 80053; 82043; 82570; 83036; 85025

== ENCOUNTER 2024-12-31 07:40 | Outpatient (RCR) | payer MEDICARE, MEDICAID, SELFPAY ==
[2024-12-31 14:18] VITALS: BP 141/69; PULSE 65; TEMP 36.6; O2SAT 95
[2024-12-31] MEDS: 0.9 % SODIUM CHLORIDE 1,000 ML 666.667 ML IV (14:36)
== END 2025-01-01 08:32 | disposition home or self-care (01) ==
LOC: HEMC 07:40
PROVIDERS: Visit Provider Internal Medicine Hematology & Oncology
DX: D47.3 Essential (hemorrhagic) thrombocythemia (principal); D72.829 Elevated white blood cell count, unspecified; Z90.710 Acquired absence of both cervix and uterus; F17.210 Nicotine dependence, cigarettes, uncomplicated; Z90.722 Acquired absence of ovaries, bilateral; Z86.73 Personal history of transient ischemic attack (TIA), and cerebral infarction without residual deficits; G40.909 Epilepsy, unspecified, not intractable, without status epilepticus
CPT/HCPCS: G0463

== ENCOUNTER 2025-03-11 07:49 | Outpatient (RCR) | payer MEDICARE, MEDICAID, SELFPAY ==
[2025-03-11 13:37] LABS: Basophils Percent Auto 0.2 % (0.2-2.0); Eosinophils Absolute Auto 0.2 10^3/uL (0.0-0.7); Eosinophils Percent Auto 2.2 % (0.9-7.0); Hematocrit 45.9 % (36.0-48.0); Hemoglobin 15.3 g/dL (12.0-16.0); Immature Granulocytes Abs Auto 0.02 10^3/uL (0.00-0.03); Immature Granulocytes Pct Auto 0.2 % (0.0-0.5); Lymphocytes Absolute Auto 2.6 10^3/uL (1.2-3.8); Lymphocytes Percent Auto 31.4 % (20.5-60.0); Mean Corpuscular HGB Conc 33.3 g/dL (29.9-35.2); Mean Corpuscular Hemoglobin 33.1 pg (26.7-34.0); Mean Corpuscular Volume 99.4 fL (81.0-99.0); Mean Platelet Volume 10.6 fL (9.5-13.5); Monocytes Absolute Auto 0.6 10^3/uL (0.3-0.8); Monocytes Percent Auto 6.9 % (1.7-12.0); Neutrophils Absolute Auto 4.8 10^3/uL (1.4-6.5); Neutrophils Percent Auto 59.1 % (43.0-75.0); Platelet Count 416 10^3/uL (150-450); Red Blood Count 4.62 10^6/uL (4.20-5.40); Red Cell Distribution Width 16.1 % (11.0-15.0); White Blood Count 8.2 10^3/uL (4.0-11.0)
[2025-03-11 14:04] LABS: Alanine Aminotransferase 26 U/L (14-59); Albumin Globulin Ratio 1.1; Albumin Level 3.8 g/dL (3.4-5.0); Alkaline Phosphatase 100 U/L (46-116); Anion Gap 13.6; Aspartate Amino Transferase 22 U/L (15-37); Bilirubin Total 0.6 mg/dL (0.2-1.0); Calcium 9.3 mg/dL (8.5-10.1); Carbon Dioxide 28.5 mmol/L (21.0-32.0); Chloride 102 mmol/L (98-107); Estimated GFR (African America >60 (>=60 mL/min/1.73m^2); Estimated GFR (Non-African Ame >60 (>=60 mL/min/1.73m^2); Globulin 3.5 g/dL; Glucose 97 mg/dL (74-106); Potassium 4.1 mmol/L (3.5-5.1); Sodium 140 mmol/L (136-145); Total Protein 7.3 g/dL (6.4-8.2)
[2025-03-11 14:41] LABS: Percent Iron Saturation 30.7 %
[2025-03-12 03:07] LABS: Vitamin B12 704 pg/mL (232-1245)
== END 2025-03-12 08:34 | disposition home or self-care (01) ==
LOC: HEMC 07:49
PROVIDERS: Visit Provider Internal Medicine Hematology & Oncology
DX: D47.3 Essential (hemorrhagic) thrombocythemia (principal); D72.829 Elevated white blood cell count, unspecified; R71.8 Other abnormality of red blood cells; Z90.710 Acquired absence of both cervix and uterus; F17.210 Nicotine dependence, cigarettes, uncomplicated; Z86.73 Personal history of transient ischemic attack (TIA), and cerebral infarction without residual deficits; Z96.649 Presence of unspecified artificial hip joint; G40.909 Epilepsy, unspecified, not intractable, without status epilepticus
CPT/HCPCS: 36415; 80053; 82607; 82728; 82746; 83540; 83550; 85025; G0463

== ENCOUNTER 2025-05-30 13:59 | Outpatient (OUT) | payer MEDICARE, MEDICAID, SELFPAY ==
[2025-05-30 14:29] LABS: Hematocrit 48.0 % (36.0-48.0); Hemoglobin 16.0 g/dL (12.0-16.0); Immature Granulocytes Abs Auto 0.02 10^3/uL (0.00-0.03); Immature Granulocytes Pct Auto 0.3 % (0.0-0.5); Lymphocytes Absolute Auto 2.0 10^3/uL (1.2-3.8); Mean Corpuscular HGB Conc 33.3 g/dL (29.9-35.2); Mean Corpuscular Hemoglobin 34.9 pg (26.7-34.0); Mean Corpuscular Volume 104.6 fL (81.0-99.0); Platelet Count 355 10^3/uL (150-450); Red Blood Count 4.59 10^6/uL (4.20-5.40); White Blood Count 6.2 10^3/uL (4.0-11.0)
[2025-05-30 15:26] LABS: Anion Gap 13.5; Blood Urea Nitrogen 18.0 mg/dL (7.0-18.0); Calcium 9.1 mg/dL (8.5-10.1); Carbon Dioxide 28.2 mmol/L (21.0-32.0); Chloride 103 mmol/L (98-107); Estimated GFR (African America >60 (>=60 mL/min/1.73m^2); Estimated GFR (Non-African Ame >60 (>=60 mL/min/1.73m^2); Glucose 93 mg/dL (74-106); Potassium 4.7 mmol/L (3.5-5.1); Sodium 140 mmol/L (136-145)
[2025-05-30 15:30] LABS: Iron 77.0 ug/dL (50.0-170.0); Percent Iron Saturation 23.2 %; Total Iron Binding Capacity 332.0 ug/dL (250.0-450.0)
[2025-05-30 16:24] LABS: Ferritin 95.0 ng/mL (8.0-252.0); Folate 16.40 ng/mL (8.60-58.90)
[2025-05-31 05:07] LABS: Vitamin B12 738 pg/mL (232-1245)
== END 2025-05-30 14:00 | disposition home or self-care (01) ==
PROVIDERS: Visit Provider Internal Medicine Hematology & Oncology
DX: D47.3 Essential (hemorrhagic) thrombocythemia (principal); D72.829 Elevated white blood cell count, unspecified; R71.8 Other abnormality of red blood cells
CPT/HCPCS: 36415; 80048; 82607; 82728; 82746; 83540; 83550; 85025

== ENCOUNTER 2025-06-03 07:48 | Outpatient (RCR) | payer MEDICARE, MEDICAID, SELFPAY | END 2025-06-05 23:59 | disposition home or self-care (01) | LOC: HEMC 07:48 | PROVIDERS: Visit Provider Internal Medicine Hematology & Oncology | DX: D47.3 Essential (hemorrhagic) thrombocythemia (principal); D72.829 Elevated white blood cell count, unspecified; R71.8 Other abnormality of red blood cells; Z90.710 Acquired absence of both cervix and uterus; F17.210 Nicotine dependence, cigarettes, uncomplicated; Z86.73 Personal history of transient ischemic attack (TIA), and cerebral infarction without residual deficits; Z96.649 Presence of unspecified artificial hip joint | CPT/HCPCS: G0463 ==

== ENCOUNTER 2025-08-09 06:37 | Outpatient (OUT) | payer MEDICARE, MEDICAID, SELFPAY ==
--- OUTSIDE RECORDS SUMMARY | 2015-05-12 04:45 | XMS_ITS | Continuity of Care Document ---
Author Organization [facility] Address [address] [place] [address] Phone Care Team Providers Care Shipping And Receiving Specialist Name Role Phone Oral DMD February Unavailable [...] Diagnoses Date Provider Providers Copied on Encounter [facility], [address], [place], [id number], [place] tel:[phone] Dental Clinic Dental exam Oral DMD Nazanin. [address], [place], [id number], [place]. tel:[phone] Family History Family Member Type Diagnosis Age At Onset No Information Payers Payer name Insurance type Covered republican ID García crook(s) D Medicaid Primary [facility] [id number] Social History Type Description Quantity Date Captured Comments Alcohol Use Details Unknown Caffeine Use Details Unknown Tobacco Use Status Moderate cigarette smoker (10-19 cigs/day) Smoking Status Heavy tobacco smoker Smoking Tobacco Use Details Cigarette: Years Used 35 Cigarette: 10 Packs per day, Pack Year: 17.5 Sex Female Vital Signs Date / Time: Height Weight [...]
--- OUTSIDE RECORDS SUMMARY | 2024-12-31 09:30 | XMS_ITS ---
Author Organization The [facility] in [place] Address [address] [place] [address] Care Team Providers Care Bead Filler Name Role Phone Olga Holloway Primary Care Provider Lakia Valenzuela Unavailable [phone] REASON FOR VISIT MD Encounters Encounter Location Date Provider Diagnosis [facility] Oncology [address] [place] [address] 12/31/2024 Lakia Tomlin Plan Of Treatment Next Appt Details Provider Name:Lakia Tomlin , 09/02/2025 03:00:00 PM, [address] [place], [address], Progress Notes * Jazmin STEVEYousifOB:1950 (75 yo F)Acc No.[id number]:12/31/2024 UNLOCKED PROGRESS NOTE Progress Notes Patient: Lesly IZAGUIRRE Provider: Presley Tomlin M.D. :1950 A ge:74 Y S ex:Female Date:12/31/2024 Address:[address] [place], [place]-[address] Pcp:Olga Holloway Subjective: * Chief Complaints: * 1 . MD. * Medical History: Objective: * Vitals: Assessment: Plan: * Treatment: * * Electronic signature of Tesha Tomlin MD, [id number] on 08/09/2025 at 01:54 PM EDT Sign off status: Pending Visit Status: A [facility] (Voice) * Provider: Presley Tomlin M.D. Date: 0 12/31/2024 Generated for Riaz escobedo/Octavio/Sofia on: 1 01:54 PM EDT
--- OUTSIDE RECORDS SUMMARY | 2025-02-25 10:00 | XMS_ITS ---
Author Organization The [facility] in [place] Address [address] [place] [address] Care Team Providers Care Hot Wire Glass Tube Cutter Name Role Phone Olga Holloway Primary Care Provider Lakia Valenzuela Unavailable [phone] REASON FOR VISIT MD Encounters Encounter Location Date Provider Diagnosis [facility] On[facility] [address] [place] [address] 02/25/2025 Lakia Tomlin Plan Of Treatment Next Appt Details Provider Name:Lakia Tomlin , 09/02/2025 03:00:00 PM, [address] [place], [address], Progress Notes * Jazmin STEVEYousifOB:1950 (75 yo F)Acc No.[id number]:02/25/2025 UNLOCKED PROGRESS NOTE Progress Notes Patient: Lesly IZAGUIRRE Provider: Presley Tomlin M.D. :1950 A ge:74 Y S ex:Female Date:02/25/2025 Address:[address] [place], [place] Pcp:Olga Holloway Subjective: * Chief Complaints: * 1 . MD. * Medical History: Objective: * Vitals: Assessment: Plan: * Treatment: * * Electronic signature of Tesha Tomlin MD, [id number] on 08/09/2025 at 01:54 PM EDT Sign off status: Pending Visit Status: C ANC (Cancelled) * Provider: Presley Tomlin M.D. Date: 0 02/25/2025 Generated for Riaz escobedo/Octavio/Sofia on: 1 01:54 PM EDT
--- OUTSIDE RECORDS SUMMARY | 2025-03-11 09:15 | XMS_ITS ---
Author Organization The [facility] in [place] Address [address] [place] [address] Care Team Providers Care Librarian Special Library Name Role Phone Olga Holloway Primary Care Provider Lakia Valenzuela Unavailable [phone] REASON FOR VISIT MD Encounters Encounter Location Date Provider Diagnosis [facility] Oncology [address] [place] [address] 03/11/2025 Lakia Tomlin Plan Of Treatment Next Appt Details Provider Name:Lakia Tomlin , 09/02/2025 03:00:00 PM, [address] [place], [address], Progress Notes * Jazmin STEVEYousifOB:1950 (75 yo F)Acc No.[id number]:03/11/2025 UNLOCKED PROGRESS NOTE Progress Notes Patient: Lesly IZAGUIRRE Provider: Presley Tomlin M.D. :1950 A ge:74 Y S ex:Female Date:03/11/2025 Address:[address] [place], [place] Pcp:Olga Holloway Subjective: * Chief Complaints: * 1 . MD. * Medical History: Objective: * Vitals: Assessment: Plan: * Treatment: * * Electronic signature of Tesha Tomlin MD, [id number] on 08/09/2025 at 01:53 PM EDT Sign off status: Pending Visit Status: [facility] (Voice) * Provider: Presley Tomlin M.D. Date: 0 03/11/2025 Generated for Riaz escobedo/Octavio/Sofia on: 1 01:53 PM EDT
--- OUTSIDE RECORDS SUMMARY | 2025-05-20 06:30 | XMS_ITS ---
Author Organization The [facility] in [place] Address [address] [place] [address] Care Team Providers Care Bunch Trimmer Mold Name Role Phone Olga Holloway Primary Care Provider Lakia Valenzuela Unavailable [phone] REASON FOR VISIT MD Encounters Encounter Location Date Provider Diagnosis [facility] Oncology [address] [place] [address] 05/20/2025 Lakia Tomlin Plan Of Treatment Next Appt Details Provider Name:Lakia Tomlin , 09/02/2025 03:00:00 PM, [address] [place], [address], Progress Notes * Jazmin STEVEYousifOB:1950 (75 yo F)Acc No.[id number]:05/20/2025 UNLOCKED PROGRESS NOTE Progress Notes Patient: Lesly IZAGUIRRE Provider: Presley Tomlin M.D. :1950 A ge:74 Y S ex:Female Date:05/20/2025 Address:[address] [place], [place] Pcp:Olga Holloway Subjective: * Chief Complaints: * 1 . MD. * Medical History: Objective: * Vitals: Assessment: Plan: * Treatment: * * Electronic signature of Tesha Tomlin MD, [id number] on 08/09/2025 at 01:54 PM EDT Sign off status: Pending Visit Status: C ANC (Cancelled) * Provider: Presley Tomlin M.D. Date: 0 05/20/2025 Generated for Riaz escobedo/Octavio/Sofia on: 1 01:54 PM EDT
--- OUTSIDE RECORDS SUMMARY | 2025-06-03 11:00 | XMS_ITS ---
Author Organization The [facility] in [place] Address [address] [place] [address] Care Team Providers Care Health And Social Care Teacher Name Role Phone Olga Holloway Primary Care Provider Lakia Valenzuela Unavailable [phone] REASON FOR VISIT MD Encounters Encounter Location Date Provider Diagnosis [facility] Oncology [address] [place] [address] 06/03/2025 Lakia Tomlin Plan Of Treatment Next Appt Details Provider Name:Lakia Tomlin , 09/02/2025 03:00:00 PM, [address] [place], [address], Progress Notes * Jazmin STEVEYousifOB:1950 (75 yo F)Acc No.[id number]:06/03/2025 UNLOCKED PROGRESS NOTE Progress Notes Patient: Lesly IZAGUIRRE Provider: Presley Tomlin M.D. :1950 A ge:74 Y S ex:Female Date:06/03/2025 Address:[address] [place], [place] Pcp:Olga Holloway Subjective: * Chief Complaints: * 1 . MD. * Medical History: Objective: * Vitals: Assessment: Plan: * Treatment: * * Electronic signature of Tesha Tomlin MD, [id number] on 08/09/2025 at 01:54 PM EDT Sign off status: Pending Visit Status: A [facility] (Voice) * Provider: Presley Tomlin M.D. Date: 0 06/03/2025 Generated for Riaz escobedo/Octavio/Sofia on: 1 01:54 PM EDT
--- OUTSIDE RECORDS SUMMARY | 2025-08-09 13:54 | XMS_ITS | Patient Health Record ---
Author Organization [facility] in [place] Address [address] [place] [address] Care Team Providers Care Home Health Care Coordinator Name Role Phone Olga Holloway Primary Care Provider Lakia Valenzuela Unavailable [phone] Allergies Allergen (clinical drug ingredient) Drug/Non Drug Allergy documented on EMR Reaction Allergy Type Onset Date Status phenytoin Dilantin Unknown Drug Allergy Active Zinc Unknown Drug Allergy Active nickel Nickel Unknown Allergy Active phenobarbital Phenobarbital Unknown Drug Allergy Active Penicillin Unknown Drug Allergy Active Results Component Value Reference Range Notes CBC AUTO DIFF (Not yet revie wed by provider) Interpretation: Performing Lab: Notes/Report: [facility] [place] , White Blood Count 8.2 4.0-11.0 10 3/uL Red Blood Count 4.62 4.20-5.40 10 6/uL Hemoglobin 15.3 12.0-16.0 g/dL Hematocrit 45.9 36.0-48.0 % Mean Corpuscular Volume 99.4 81.0-99.0 fL Mean Corpuscular Hemoglobin 33.1 26.7-34.0 pg Mean Corpuscular HGB Conc 33.3 29.9-35.2 g/dL Red Cell Distribution Width 16.1 11.0-15.0 % Platelet Count 416 150-450 10 3/uL Mean Platelet Volume 10.6 9.5-13.5 fL Neutrophils Percent Auto 59.1 43.0-75.0 % Lymphocytes Percent Auto 31.4 20.5-60.0 % Monocytes Percent Auto 6.9 1.7-12.0 % Eosinophils Percent Auto 2.2 0.9-7.0 % Basophils Percent Auto 0.2 0.2-2.0 % Immature Granulocytes Pct Auto 0.2 0.0-0.5 % Neutrophils Absolute Auto 4.8 1.4-6.5 10 3/uL Lymphocytes Absolute Auto 2.6 1.2-3.8 10 3/uL Monocytes Absolute Auto 0.6 0.3-0.8 10 3/uL Eosinophils Absolute Auto 0.2 0.0-0.7 10 3/uL Basophils Absolute Auto 0.0 0.0-0.1 10 3/uL Immature Granulocytes Abs Auto 0.02 0.00-0.03 10 3/uL Performing Lab: see note ML - [facility] LB IRON AND TIBC (Not yet revie wed by provider) Interpretation: Performing Lab: Notes/Report: [facility] [place] , Iron 87.0 50.0-170.0 ug/dL Total Iron Binding Capacity 283.0 250.0-450.0 u g/dL Percent Iron Saturation 30.7 Performing Lab: see note ML - [facility] LB CBC AUTO DIFF (Not yet revie wed by provider) Interpretation: Performing Lab: Notes/Report: [facility] [place] , White Blood Count 6.2 4.0-11.0 10 3/uL Red Blood Count 4.59 4.20-5.40 10 6/uL Hemoglobin 16.0 12.0-16.0 g/dL Hematocrit 48.0 36.0-48.0 % Mean Corpuscular Volume 104.6 81.0-99.0 fL Mean Corpuscular Hemoglobin 34.9 26.7-34.0 pg Mean Corpuscular HGB Conc 33.3 29.9-35.2 g/dL Red Cell Distribution Width 13.4 11.0-15.0 % Platelet Count 355 150-450 10 3/uL Mean Platelet Volume 10.8 9.5-13.5 fL Neutrophils Percent Auto 55.9 43.0-75.0 % Lymphocytes Percent Auto 32.4 20.5-60.0 % Monocytes Percent Auto 8.2 1.7-12.0 % Eosinophils Percent Auto 2.7 0.9-7.0 % Basophils Percent Auto 0.5 0.2-2.0 % Immature Granulocytes Pct Auto 0.3 0.0-0.5 % Neutrophils Absolute Auto 3.5 1.4-6.5 10 3/uL Lymphocytes Absolute Auto 2.0 1.2-3.8 10 3/uL Monocytes Absolute Auto 0.5 0.3-0.8 10 3/uL Eosinophils Absolute Auto 0.2 0.0-0.7 10 3/uL Basophils Absolute Auto 0.0 0.0-0.1 10 3/uL Immature Granulocytes Abs Auto 0.02 0.00-0.03 10 3/uL Performing Lab: see note - [facility] LB IRON AND TIBC (Not yet revie wed by provider) Interpretation: Performing Lab: Notes/Report: [facility] [place] , Iron 77.0 50.0-170.0 ug/dL Total Iron Binding Capacity 332.0 250.0-450.0 u g/dL Percent Iron Saturation 23.2 Performing Lab: see note [facility] PROF CHEM 8 (BAS METB) (Not yet reviewed by provider) Interpretation: Performing Lab: Notes/Report: [facility] [place] , Sodium 140 136-145 mmol/L Potassium 4.7 3.5-5.1 mmol/L Chloride 103 98-107 mmol/L Carbon Dioxide 28.2 21.0-32.0 mmol/L Anion Gap 13.5 Glucose 93 74-106 mg/dL Blood Urea Nitrogen 18.0 7.0-18.0 mg/dL Creatinine 0.84 0.55-1.02 mg/dL Estimated GFR ( Eloisa >60 >=60 mL/mi n/1.73m 2 Estimated GFR (Non- Micheline >60 >=60 mL/mi n/1.73m 2 BUN Creatinine Ratio 21.4 Calcium 9.1 8.5-10.1 mg/dL Performing Lab: see note - [facility] LB Vitamin B12 (Not yet reviewe d by provider) Interpretation: Performing Lab: Notes/Report: [facility] , Vitamin B12 023 484-4621 pg/mL Performed at: - [facility] [address] [id number] Collections Associate: Sylvain Ralph PhD, Phone: [phone] Performing Lab: see note - [facility] LB FOLATE (Not yet reviewed by provider) Interpretation: Performing Lab: Notes/Report: [facility] [place] , Folate 16.40 8.60-58.90 ng/mL Performing Lab: see note - [facility] LB FERRITIN (Not yet reviewed b y provider) Interpretation: Performing Lab: Notes/Report: [facility] [place] , Ferritin 95.0 8.0-252.0 ng/mL Performing Lab: see note - [facility] LB Vitamin B12 (Not yet reviewe d by provider) Interpretation: Performing Lab: Notes/Report: [facility] , Vitamin B12 076 656-3061 pg/mL Performed at: - [facility] [address] [id number] Collections Associate: Sylvain Ralph PhD, Phone: [phone] Performing Lab: see note - [facility] LB PROF 14(COMP METB) (Not yet reviewed by provider) Interpretation: Performing Lab: Notes/Report: [facility] [place] , Sodium 140 136-145 mmol/L Potassium 4.1 3.5-5.1 mmol/L Chloride 102 98-107 mmol/L Carbon Dioxide 28.5 21.0-32.0 mmol/L Anion Gap 13.6 Glucose 97 74-106 mg/dL Blood Urea Nitrogen 20.0 7.0-18.0 mg/dL Creatinine 0.91 0.55-1.02 mg/dL Estimated GFR ( Eloisa >60 >=60 mL/mi n/1.73m 2 Estimated GFR (Non- Micheline >60 >=60 mL/mi n/1.73m 2 BUN Creatinine Ratio 22.0 Calcium 9.3 8.5-10.1 mg/dL Bilirubin Total 0.6 0.2-1.0 mg/dL Aspartate Amino Transferase 22 15-37 U/L Alanine Aminotransferase 26 14-59 U/L Alkaline Phosphatase 100 46-116 U/L Total Protein 7.3 6.4-8.2 g/dL Albumin Level 3.8 3.4-5.0 g/dL Globulin 3.5 Albumin Globulin Ratio 1.1 Performing Lab: see note ML - [facility] LB FOLATE (Not yet reviewed by provider) Interpretation: Performing Lab: Notes/Report: [facility] [place] , Folate 13.00 8.60-58.90 ng/mL Performing Lab: see note - [facility] LB FERRITIN (Not yet reviewed b y provider) Interpretation: Performing Lab: Notes/Report: [facility] [place] , Ferritin 120.0 8.0-252.0 ng/mL Performing Lab: see note - [facility] LB Vitamin B12 (Not yet reviewe d by provider) Interpretation: Performing Lab: Notes/Report: [facility] , Vitamin B12 3554 966-8046 pg/mL Performed at: [facility] [address] [id number] Collections Associate: Sylvain Ralph PhD, Phone: [phone] Performing Lab: see note - [facility] LB PROF 14(COMP METB) (Not yet reviewed by provider) Interpretation: Performing Lab: Notes/Report: [facility] [place] , Sodium 136 136-145 mmol/L Potassium 3.9 3.5-5.1 mmol/L Chloride 101 98-107 mmol/L Carbon Dioxide 26.3 21.0-32.0 mmol/L Anion Gap 12.6 Glucose 107 74-106 mg/dL Blood Urea Nitrogen 22.0 7.0-18.0 mg/dL Creatinine 1.07 0.55-1.02 mg/dL Estimated GFR ( Eloisa >60 >=60 mL/mi n/1.73m 2 Estimated GFR (Non- Micheline 50 >=60 mL/mi n/1.73m 2 BUN Creatinine Ratio 20.6 Calcium 9.2 8.5-10.1 mg/dL Bilirubin Total 0.5 0.2-1.0 mg/dL Aspartate Amino Transferase 23 15-37 U/L Alanine Aminotransferase 23 14-59 U/L Alkaline Phosphatase 78 46-116 U/L Total Protein 7.2 6.4-8.2 g/dL Albumin Level 3.9 3.4-5.0 g/dL Globulin 3.3 Albumin Globulin Ratio 1.2 Performing Lab: see note - [facility] LB MAGNESIUM (Not yet reviewed by provider) Interpretation: Performing Lab: Notes/Report: [facility] [place] , Magnesium 1.9 1.8-2.4 mg/dL Performing Lab: see note - [facility] LB IRON AND TIBC (Not yet revie wed by provider) Interpretation: Performing Lab: Notes/Report: [facility] [place] , Iron 93.0 50.0-170.0 ug/dL Total Iron Binding Capacity 341.0 250.0-450.0 u g/dL Percent Iron Saturation 27.3 Performing Lab: see note ML - [facility] LB FOLATE (Not yet reviewed by provider) Interpretation: Performing Lab: Notes/Report: [facility] [place] , Folate 20.30 8.60-58.90 ng/mL Performing Lab: see note - [facility] LB FERRITIN (Not yet reviewed b y provider) Interpretation: Performing Lab: Notes/Report: [facility] [place] , Ferritin 165.0 8.0-252.0 ng/mL Performing Lab: see note - [facility] LB CBC AUTO DIFF (Not yet revie wed by provider) Interpretation: Performing Lab: Notes/Report: [facility] [place] , White Blood Count 7.3 4.0-11.0 10 3/uL Red Blood Count 4.04 4.20-5.40 10 6/uL Hemoglobin 14.1 12.0-16.0 g/dL Hematocrit 41.6 36.0-48.0 % Mean Corpuscular Volume 103.0 81.0-99.0 fL Mean Corpuscular Hemoglobin 34.9 26.7-34.0 pg Mean Corpuscular HGB Conc 33.9 29.9-35.2 g/dL Red Cell Distribution Width 16.5 11.0-15.0 % Platelet Count 315 150-450 10 3/uL Mean Platelet Volume 10.5 9.5-13.5 fL Neutrophils Percent Auto 52.5 43.0-75.0 % Lymphocytes Percent Auto 36.0 20.5-60.0 % Monocytes Percent Auto 7.3 1.7-12.0 % Eosinophils Percent Auto 3.6 0.9-7.0 % Basophils Percent Auto 0.5 0.2-2.0 % Immature Granulocytes Pct Auto 0.1 0.0-0.5 % Neutrophils Absolute Auto 3.8 1.4-6.5 10 3/uL Lymphocytes Absolute Auto 2.6 1.2-3.8 10 3/uL Monocytes Absolute Auto 0.5 0.3-0.8 10 3/uL Eosinophils Absolute Auto 0.3 0.0-0.7 10 3/uL Basophils Absolute Auto 0.0 0.0-0.1 10 3/uL Immature Granulocytes Abs Auto 0.01 0.00-0.03 10 3/uL Performing Lab: see note - [facility] LB Reason For Referral No Information Medications Medication SIG (Take, Route, Frequency, Duration) Notes Start Date End Date Status oxyBUTYnin Chloride 5 MG 1 tablet Orally three times daily as needed Active Percocet 7.5-325 MG 1 tablet as needed O rally three times daily as needed Active rOPINIRole HCl 0.5 MG 1 tablet 1 to 3 ho urs before bedtime Orally Once a day Active Simvastatin 40 MG 1 tablet in the even ing Orally Once a day Active ALPRAZolam 1 MG 1 tablet Orally Twic e a day Active busPIRone HCl 10 MG 1 tablet Orally Twic e a day Active Gabapentin 300 MG 1 capsule Orally thr ee times daily Active Hyoscyamine Active levETIRAcetam 500 MG 1 tablet Orally nandini ry 12 hrs Active Metoprolol Tartrate 25 MG 1 tablet with food Orally Twice a day Active Ondansetron 4 MG 1 tablet on the tong ue and allow to dissolve Orally Once a day Active Problems Problem Type SNOMED Code ICD Code Onset Dates Problem Status W/U Status Risk Notes Problem Gastroesophageal reflux disease (859697335) GERD (gastroesophageal reflux disease) (K21.9) Active confirmed Problem Essential hypertension (38569003) BP (high blood pressure) (I10) Active confirmed Problem Acquired thrombocytopenia (35727018) Acquired thrombocytopenia (D69.6) Active confirmed Encounters Encounter Location Date Provider Diagnosis [facility] [address] [place] [phone] [facility] [address] [place] [phone] [facility]/03[facility] [address] [place] [phone] 12/31[facility] [address] [place] [phone] 03/11/2025 Lakia Tomlin Plan Of Treatment Pending Test Test Name Order Date CBC AUTO DIFF 04/09/2024 CBC AUTO DIFF 05/21/2024 CBC AUTO DIFF 07/23/2024 CBC AUTO DIFF 08/13/2024 CBC AUTO DIFF 03/11/2025 CBC AUTO DIFF 05/30/2025 CRP 05/21/2024 CRP 04/09/2024 FERRITIN 04/09/2024 FERRITIN 05/21/2024 FERRITIN 05/30/2025 FERRITIN 03/11/2025 FERRITIN 08/13/2024 FERRITIN 07/23/2024 FOLATE 08/13/2024 FOLATE 03/11/2025 FOLATE 05/30/2025 IRON AND TIBC 08/13/2024 IRON AND TIBC 03/11/2025 IRON AND TIBC 07/23/2024 IRON AND TIBC 05/21/2024 IRON AND TIBC 04/09/2024 IRON AND TIBC 05/30/2025 LAB TESTING 04/09/2024 LAB TESTING 04/09/2024 LAB TESTING 04/09/2024 MAGNESIUM 08/13/2024 PROF 14(COMP METB) 08/13/2024 PROF 14(COMP METB) 03/11/2025 PROF 14(COMP METB) 07/23/2024 PROF CHEM 8 (BAS METB) 05/21/2024 PROF CHEM 8 (BAS METB) 05/30/2025 Erythrocyte Sedimentation Rate 4 Erythrocyte Sedimentation Rate 4 Beta-2 Glycoprotein I Ab,G,A,M 4 Vitamin B12 05/30/2025 Vitamin B12 03/11/2025 Vitamin B12 08/13/2024 Next Appt Details Provider Name:Lakia Tomlin , 09/02/2025 03:00:00 PM, [address] [place], [address], Insurance Providers Payer Name Payer Address Payer Phone Subscriber Number Group Number Insured Name Patient Relationship to Insured Coverage Start Date Coverage End Date [employer] DUAL ADV PRIMARY MEDICARE [address] [place] [address] [id number] Power Lesly Self - patient is the insured MEDICAID [place] 2ND INS [address] [place], [place] [id number] Power Lesly Self - patient is the insured 3 Medical (General) History Medical History History ICD Code Anxiety and depression F41.9 Essential hypertension I10 Abdominal pain R10.9 Blood in stool K92.1 Surgical History Surgery Date(Month/Year) cataract extraction total hip arthroscopy - left total hysterectomy right hand reconstruction
--- OUTSIDE RECORDS SUMMARY | 2025-08-09 13:54 | XMS_ITS | Encounter Summary ---
Author Organization [facility] Address [address] [place] [address] Care Team Providers Care Commission For The Blind Director Name Role Phone Ethan Bonilla MD Primary Care Provider [phone] Keira Church DIETARY SERVER Unavailable [phone] Encounter Details Date Type Department Care Team (Late st Contact Info) Description 12/10/2024 Orders Only [facility] [address] [place] [id number] Keira Church NP Social History Tobacco Use Types Packs/Day Years Used Date Smoking Tobacco: Every Day Cigarettes Passive Smoke Exposure: Current Alcohol Use Standard Drinks/Week Comments Never 0 (1 standard drink = 0.6 oz pur e alcohol) PHQ-2 Answer Date Recorded Patient Health Questionnaire-2 Score 4 07/24/2024 Comments Unknown Sex and Gender Information Value Date Recorded Sex Assigned at Not on file Legal Sex Female 7:25 PM EDT Gender Identity Not on file Sexual Orientation Not on file documented as of this encounter Plan of Treatment Not on file documented as of this encounter Procedures Procedure Name Priority Date/Time Associated Diagnosis Comments DIABETIC RETINOPATHY SCREENING - OU - BOTH EYES Routine 12/10/2024 2:18 PM EST documented in this encounter Results * Diabetic Retinopathy Screening - OU - Both Eyes (12/10/2024 2:18 PM EST) Anatomical Region Laterality Modality Head Other Keira Church DIETARY SERVER OPHTH PHOTOGRAPHY Final Result documented in this encounter Visit Diagnoses Not on filedocumented in this encounter Additional Health Concerns Assessment Noted Time PHQ-9 Depression Total Score: 8 07/24/20 24 4:18 PM EDT documented as of this encounter Care Teams Commission [employer] Blind Director Relationship Specialty Start Date End Date Ethan Bonilla MD PCP - General Family Medicine 08/15/24 Keira Church NP Nurse Practitioner Family Medicine 08/15/24 documented as of this encounter
--- OUTSIDE RECORDS SUMMARY | 2025-08-09 13:54 | XMS_ITS | Encounter Summary ---
Author Organization [facility] Address [address] [facility] [address] Care Team Providers Care Cut File Clerk Name Role Phone Ethan Bonilla MD Primary Care Provider [phone] Keira Church HEAD RIGGER Unavailable [phone] Encounter Details Date Type Department Care Team (Late st Contact Info) Description 02/26/2025 Abstract [facility] [address] [place] [address] Magdalene Goodrich NP [address] [place] [address] Social History Tobacco Use Types Packs/Day Years [...] on file documented as of this encounter Visit Diagnoses Not on filedocumented in this encounter Additional Health Concerns Assessment Noted Time PHQ-9 Depression Total Score: 8 07/24/20 24 4:18 PM EDT documented as of this encounter Care Teams Cut File Clerk Relationship Specialty Start Date End Date Ethan Bonilla MD PCP - General Family Medicine 08/15/24 Keira Church NP Nurse Practitioner Family Medicine 08/15/24 documented as of this encounter
--- OUTSIDE RECORDS SUMMARY | 2025-08-09 13:54 | XMS_ITS | Clinical Summary ---
Author Organization [facility] tem Address [id number] [address] [place] [address] Care Team Providers Care Installment Loan Collector Name Role Phone Rajendra Jc DO Primary Care Provider Matt lable Allergies Active Allergy Reactions Criticality Noted Date Comments Phenytoin Sodium Extended Rash Low 04/07/2021 Penicillins Rash Low 04/07/2021 Phenobarbital Rash Low 04/07/2021 Medications baclofen (LIORESAL) 20 mg tablet Take 20 mg by mouth 2 (two) times a day. Prn for muscle aches Active ALPRAZolam (XANAX) 1 mg tablet Take 1 mg by mouth 2 (two) times a day as needed for anxiety. As needed for anxiety Active metoprolol tartrate (LOPRESSOR) 50 mg tablet Take 25 mg by mouth 2 (two) times a day. Active carboxymethylcel lulose (REFRESH PLUS) 0.5 % dropperette 1 drop 2 (two) times a day as needed for dry eyes. Active oxyCODONE-acetam inophen (PERCOCET) 7.5-325 mg per tablet Take 1 tablet by mouth every 8 (eight) hours as needed for pain. Active levETIRAcetam (KEPPRA) 500 mg tablet Take 1 tablet (500 mg total) by mouth 2 (two) times a day. 60 tablet 04/10/2021 Active Active Problems Problem Noted Date Diagnosed Date Drug-induced acute pancreati tis without infection or necrosis 04/08/2021 Epigastric pain 04/08/2021 Cigarette smoker 04/08/2021 Chronic narcotic use 04/08/2021 Seizures Hypertension Glaucoma GERD (gastroesophageal reflux disease) Fibromyalgia, primary Eczema Arthritis Anxiety Family History Medical History Relation Name Comments COPD Mother Diabetes Mother Heart disease Sister Relation Name Status Comments Father Mother Sister Alive Social History Tobacco Use Types Packs/Day Years Used Date Smoking Tobacco: Every Day Cigarettes 1 55 Smokeless Tobacco: Never Tobacco Cessation:Ready to Q uit: Yes; Counseling Given: Yes Alcohol Use Standard Drinks/Week Comments No 0 (1 standard drink = 0.6 oz pur e alcohol) Childcare Answer Date Recorded Childcare Unknown 04/16/2019 Employment Answer Date Recorded Employment Unknown 04/16/2019 Purpose - Life Answer Date Recorded Purpose and direction in life Unknown Comments No Sex and Gender Information Value Date Recorded Sex Assigned at Not on file Legal Sex Female 5:52 PM EDT Gender Identity Not on file Sexual Orientation Not on file Last Filed Vital Signs Vital Sign Reading Time Taken Comments Blood Pressure 120/52 04/10/2021 12:18 PM EDT Pulse 69 04/10/2021 12:18 PM EDT Temperature 37.2 C (99 F) 04/10/2021 8:00 AM EDT Respiratory Rate 19 04/10/2021 8:00 AM EDT Oxygen Saturation 95% 04/10/2021 8:00 AM EDT Inhaled Oxygen Concentration - - Weight 69.5 kg (153 lb 4.8 oz) 04/10/2021 4:00 AM EDT Height 162.6 cm (5' 4 ) 04/06/2021 2:01 AM EDT Body Mass Index 26.31 04/06/2021 2:01 AM EDT Plan of Treatment Health Maintenance Due Date Last Done Comments Depression Screening 1960 Tobacco Screening 1960 DTaP,Tdap and Td Vaccines (1 - Tdap) 1967 Zoster (Shingles) Vaccine (1 of 2) 1998 Fall Risk Screening 2013 Influenza Vaccine 07/07/2025 07/17/2023, , 08/11/2021, Additional history exists Medical Devices Not on file Insurance MEDICAID [place] [employer] MEDICARE Advance Directives * Full Code (Latest Code Status on File) Date Activated Date Inactivated Comments 04/06/2021 3:19 AM 04/10/2021 6:20 PM Care Teams Installment Loan Collector Relationship Specialty Start Date End Date Rajendra Jc DO PCP - General 12/28/17
--- OUTSIDE RECORDS SUMMARY | 2025-08-09 13:54 | XMS_ITS | CCD ---
Author Organization [facility] Care Team Providers Care Risk Control Officer Name Role Phone Robert Schwartz Unavailable Fernando Silverio Unavailable EFREN, DR ROBERT Rodriguez Admitting Unavailable SCHWARTZ, DR ROBERT Rodriguez Attending Unavailable SCHWARTZ, DR ROBERT Rodriguez Primary Care Unavailable WEST, DR CHAITANYA King Consulting Unavailable SCHWARTZ, DR ROBERT Rodriguez Consulting Unavailable CUETOWICHO New Consulting Unavailable SCHWARTZ, DR ROBERT Rodriguez Admitting Unavailable SCHWARTZ, DR ROBERT Rodriguez Attending Unavailable SCHWARTZ, DR ROBERT Rodriguez Primary Care Unavailable SHYAM, DR RAIN Bloom Consulting Unavailable EFREN, DR ROBERT Rodriguez Consulting Unavailable SCHWARTZ, DR ROBERT Rodriguez Admitting Unavailable SCHWARTZ, DR ROBERT Rodriguez Attending Unavailable SCHWARTZ, DR ROBERT Rodriguez Primary Care Unavailable ZIDWAINE, DR RAIN Bloom Consulting Unavailable SCHWARTZ, DR ROBERT Rodriguez Consulting Unavailable BROWN, CHAITANYA Consulting Unavailable SCHWARTZ, DR ROBERT Rodriguez Admitting Unavailable SCHWARTZ, DR ROBERT Rodriguez Attending Unavailable SCHWARTZ, DR ROBERT Rodriguez Primary Care Unavailable BLAINE, DR CHAITANYA King Consulting Unavailable SCHWARTZ, DR ROBERT Rodriguez Consulting Unavailable CYNDIE FRANKEL Referring Unavailable SAIRA CAMPBELL Primary Care Unavailable Robert Schwartz Attending Unavailable Robert Schwartz Primary Care Unavailable Robert Schwartz Admitting Unavailable Robert Schwartz Admitting Unavailable Robert Schwartz Attending Unavailable Robert Schwartz Primary Care Unavailable Neto Hooper Attending DO Bob Andrew Referring Unava JARON Signh Attending Unavailable Robert Schwartz MD Primary Care Provider Ethan Bonilla MD Primary Care Provider [phone] Andrew Church NP Unavailable SAIRA CAMPBELL Primary Care Unavailable SAIRA CAMPBELL Referring Unavailable SAIRA CAMPBELL Primary Care Unavailable SAIRA CAMPBELL Referring Unavailable SAIRA CAMPBELL Primary Care Unavailable Saira Campbell DO Primary Care Provider Andrew Church NP Unavailable ANDREW CHURCH Attending Unavailabl e JOLEEN, MAGDALENE Attending Unavailable AICHHOLKarthik, MAGDALENE Attending Unavailable AICHJEAN CARLOS, MAGDALENE Attending Unavailable ANDREW CHURCH Attending Unavailabl e AARON, ANDREW Attending Unavailabl e Magdalene Mendes Primary Care Provider [phone] Magdalene Mendes Attending Provider Allergies Allergy Classification Reported Allergen(s) Allergy Type Date of Onset Reaction(s) Facility (16 sources) nickel; Translations: [NICKEL] Drug Allergy 02-13-20 24 Unknown, [facility] (13 sources) Penicillin Drug Allergy Unknown [facility] [employer] Other (20 sources) PHENobarbital; Translations: [PHENOBARBITAL] Drug Allergy 04-07-20 21 Rash, [facility] (20 sources) Phenytoin; Translations: [PHENYTOIN] Drug Allergy 04-07-20 21 Unknown, Rash [facility] (16 sources) Zinc; Translations: [ZINC] Drug Allergy 02-13-20 24 Unknown, [facility] (1 source) benzoin resin Drug Allergy 09-25-20 14 [facility] (1 source) Leucine Drug Allergy [facility] (6 sources) Penicillins; Translations: [PENICILLINS] Drug allergy (disorder) 09-25-20 14 Hives [facility] (1 source) Phenytoin Drug Allergy 09-25-20 14 [facility] (8 sources) Allergies Reconciled Propensity to adverse reactions Unknown [employer] [facility] [employer] Other (8 sources) Penicillin G Benzathine & Proc Drug allergy Unknown [employer] [facility] [employer] Other (8 sources) PHENobarbital *HYPNOTICS/SEDAT ANN/SLEEP DISORDER Propensity to adverse reactions Unknown [employer] [facility] [employer] Other (8 sources) patient allergy list reviewed by nurse or physicia Propensity to adverse reactions 03-29-20 Comment:Done [employer] [facility] [employer] Other (20 sources) Penicillin G Benzathine Allergy to substance 02-13-20 [facility] (2 sources) PHENobarbital *HYPNOTICS/SEDAT Allergy to substance 02-13-20 [facility] Comment on above: Free Text Allergy: P HENobarbital *HYPNOTICS/SEDATIVES/SLEEP DISORDER (20 sources) Phenytoin; Translations: [PHENYTOIN SODIUM EXTENDED] Drug Allergy 04-07-20 Rash [facility] (20 sources) nickel sulfate Drug Allergy 03-21-20 Unknown [facility] (20 sources) Penicillins Drug Intolerance 04-07-20 Rash, Unknown [facility] (20 sources) Zinc Acetate Drug Allergy 03-21-20 [facility] (2 sources) Penicillins Propensity to adverse reactions to drug 04-07-20 Rash [facility] Medications Current Medications Medication Drug Class(es) Dates Sig (Normalized) Sig (Original) acetaminophen 325 mg / oxyCODONE hydrochloride 7.5 mg oral tablet (20 sources) Opioid Agonist Start: 08-03-2025 take 1 tablet by mouth twice daily as needed Oxycodone-Acetami nophen 7.5-325 mg tablet Active 1 TAB PO Twice daily as needed August 03, 2025 12:00am Complies with drug therapy Start: 11-15-2024 End: 07-10-2025 take 1 tablet by mouth in the morning oxyCODONE-acetaminophen (Percocet) 7.5-325 MG tablet Indications: Lumbar back pain Take 1 tablet by mouth in the morning and 1 tablet before bedtime. 60 tablet 06/10/2025 07/10/2025 Active Start: 11-15-2024 take 1 tablet by [...] 60 tablet 09/11/2024 10/14/2024 Discontinued (Reorder) Start: 03-23-2024 End: 08-03-2025 take 1 tablet by mouth twice daily as needed for pain Oxycodone-Acetaminophen 5-325 mg tablet Discontinued 1 TAB PO Twice daily as needed for pain 14 April 23, 2024 August 03, 2025 12:31pm Start: 03-20-2024 End: 03-20-2024 take 1 tablet by mouth twice daily as needed for pain Oxycodone-Acetaminophen 5-325 mg tablet Discontinued 1 TAB PO Twice daily as needed for pain 60 March 20, 2024 March 20, 2024 1:16pm Start: 02-22-2024 End: 03-20-2024 take 1 tablet by mouth three times daily as needed for pain Oxycodone-Acetaminophen 5-325 mg tablet Discontinued 1 TAB PO Three times daily as needed for pain 90 February 22, 2024 March 20, 2024 1:15pm Start: 12-22-2023 End: 02-22-2024 take 1 tablet by mouth three times daily as needed for pain Oxycodone-Acetaminophen 7.5-325 mg table t Discontinued 1 TAB PO Three times daily as needed for pain 90 December 22, 2023 January 22, 2024 3:55pm Start: 10-24-2023 take 1 tablet by pastor [...] as needed for 30 days Jan, Active take 1 tablet by pastor th every eight hours as needed for pain oxyCODONE-acetaminophen (PERCOCET) 7.5-325 mg per tablet Take 1 tablet by mouth every 8 (eight) hours as needed for pain. Active ALPRAZolam 0.5 mg oral tablet (20 sources) Benzodiazepine Start: 02-22-2024 End: 07-10-2025 take 1 tablet by mouth twice daily as needed for anxiety ALPRAZolam (Xanax) 0.5 MG tablet Indications: FUENTES (generalized anxiety disorder) Take 1 tablet (0.5 mg) by mouth 2 (two) times a day as needed for anxiety 60 tablet 1 06/10/2025 07/10/2025 Active Start: 01-24-2023 End: 02-22-2024 take 1 tablet by mouth twice daily Alprazolam 1 mg tablet Discontinued 1 MG PO Twice daily 60 30 December 22, 2023 1:58pm January 22, 2024 3:55pm aspirin 325 mg oral tablet (20 sources) Platelet Aggregation Inhibitor, Nonsteroidal Anti-inflammatory Drug Start: 03-07-2024 End: 08-06-2024 take 1 tablet by mouth once daily aspirin 325 MG EC tablet Indications: Cerebrovascular accident (CVA), unspecified mechanism (HCC) Take 1 tablet (325 mg) by mouth Daily 30 tablet 1 08/12/2024 Active baclofen 20 mg oral tablet (2 sources) gamma-Aminobutyric Acid-ergic Agonist take 1 tablet by mouth twice daily as needed baclofen (LIORESAL) 20 mg tablet Take 20 mg by mouth 2 (two) times a day. Prn for muscle aches Active carboxymethylcellulose sodium 5 mg/ml ophthalmic solution (2 sources) take 1 drop(s) into the eye(s) twice daily as needed carboxymethylcellulose (REFRESH PLUS) 0.5 % dropperette 1 drop 2 (two) times a day as needed for dry eyes. Active Ciprofloxacin (5 sources) Quinolone Antimicrobial Ciprofloxacin Active dapagliflozin 5 mg oral tablet (20 sources) Sodium-Glucose Cotransporter 2 Inhibitor Start: 09-16-2024 End: 09-16-2025 take 1 tablet by mouth once daily Dapagliflozin Propanediol (Farxiga) 5 mg tablet Active 5 MG PO Daily August 03, 2025 12:00am Complies with drug therapy gabapentin 300 mg oral capsule (20 sources) Anti-epileptic Agent Start: 08-03-2025 take 1 capsule by mouth once daily Gabapentin 300 mg capsule Active 300 MG PO Daily August 03, 2025 12:30pm Complies with drug therapy Start: 05-18-2025 End: 06-17-2025 take 1 capsule by mouth once daily, then take 1 capsule by mouth once daily gabapentin (Neurontin) 300 MG capsule Indications: Neuropathic Pain Take 1 capsule (300 mg) by mouth Daily Take 1 capsule (300 mg) by mouth Daily 30 capsule 2 05/18/2025 Active Start: 08-12-2024 End: 03-21-2025 take 1 capsule by mouth once daily, then take 1 capsule by mouth once daily gabapentin (Neurontin) 300 MG capsule Indications: Neuropathic Pain Take 1 capsule (300 mg) by mouth Daily Take 1 capsule (300 mg) by mouth Daily 30 capsule 2 02/19/2025 Active Start: 02-09-2024 End: 08-03-2025 take 1 capsule by mouth three times daily Gabapentin 300 mg capsule Discontinued 300 MG PO Three times daily February 09, 2024 12:00am August 03, 2025 12:31pm Start: 11-08-2022 take 1 capsule by mo [facility] three times daily Gabapentin 300 MG 1 capsule Orally 3 times per day for 30 day(s) Nov, Active End: 08-06-2024 take 1 capsule by mouth once daily gabapentin (Neurontin) 300 MG capsule Indications: Neuropathic Pain Take 300 mg by mouth Daily 08/06/2024 Discontinued (Reorder) hydroxyurea 500 mg oral capsule (20 sources) Antimetabolite Start: 07-16-2025 take 1 capsule by mouth twice daily Hydroxyurea (Hydrea) 500 mg capsule Active 500 MG PO Twice daily July 16, 2025 12:00am Complies with drug therapy Start: 04-23-2024 take 1 capsule by [facility] once daily hydroxyurea (Hydrea) 500 MG capsule Take 500 mg by mouth Daily. 04/23/2024 Active Hyoscyamine (5 sources) Hyoscyamine Acti ve latanoprost 0.05 mg/ml ophthalmic solution (20 sources) Prostaglandin Analog Start: take 1 drop(s) into the eye(s) once daily Latanoprost (Xalatan) 0.005 % drops Active 1 DROPS EYE-BOTH Daily July 16, 2025 12:00am Complies with drug therapy Start: 05-17-2024 take 1 drop(s) into the eye(s) once daily at bedtime latanoprost (Xalatan) 0.005 % ophthalmic solution INSTILL 1 DROP IN EACH EYE EVERY DAY AT BEDTIME 05/17/2024 Active levETIRAcetam 500 mg oral tablet (20 sources) Start: 07-16-2025 take 1 tablet by mouth twice daily Levetiracetam (Keppra) 500 mg tablet Active 500 MG PO Twice daily July 16, 2025 12:00am Complies with drug therapy Start: 07-06-2025 [facility] levETIRAcetam (Keppra) 500 MG tablet Indications: Convulsions, unspecified convulsion type (HCC) TAKE 1 TABLET (500 MG) BY MOUTH IN THE MORNING AND BEFORE BEDTIME 180 tablet 07/06/2025 Active Start: 01-15-2024 End: 03-19-2024 take 1 tablet by mouth twice daily Levetiracetam 500 mg tablet Discontinued 0 .ROUTE .COMPLEX 180 January 15, 2024 1:09pm March 19, 2024 2:27pm TAKE 1 TABLET BY MOUTH TWICE A DAY Start: 04-10-2021 End: 07-09-2025 take 1 tablet by mouth twice daily Levetiracetam 500 mg tablet Discontinued 500 MG PO Twice daily January 15, 2024 12:00am January 15, 2024 1:09pm lisinopril 10 mg oral tablet (4 sources) Angiotensin Converting Enzyme Inhibitor Start: 06-10-2025 End: 09-08-2025 take 1 tablet by mouth once daily Lisinopril 10 mg tablet Active 10 MG PO Daily July 16, 2025 12:00am Complies with drug therapy metoprolol tartrate 25 mg oral tablet (20 sources) beta-Adrenergic Raúl Start: 02-06-2025 End: 03-06-2025 take 1 tablet by mouth at bedtime metoprolol tartrate (Lopressor) 25 MG tablet Indications: Cerebrovascular accident (CVA), unspecified mechanism (HCC) TAKE 1 TABLET (25 MG) BY MOUTH IN THE MORNING AND BEFORE BEDTIME 180 tablet 1 03/06/2025 Active Start: 08-12-2024 End: 11-13-2024 take 1 tablet by mouth in the morning metoprolol tartrate (Lopressor) 25 MG tablet Indications: Cerebrovascular accident (CVA), unspecified mechanism (CMS/HCC) Take 1 tablet (25 mg) by mouth in the morning and 1 tablet (25 mg) before bedtime. 60 tablet 1 11/13/2024 Active Start: 02-09-2024 End: 08-06-2024 take 1 tablet by mouth in the morning metoprolol tartrate (Lopressor) 25 MG tablet Take 25 mg by mouth in the morning and 25 mg before bedtime. 05/05/2024 08/06/2024 Discontinued (Reorder) metoprolol tartr ate (LOPRESSOR) 50 mg tablet Take 25 mg by mouth 2 (two) times a day. Active take 1 tablet by pastor twice daily Metoprolol Tartrate 25 MG TAKE 1 TABLET BY MOUTH TWICE A DAY for 90 Active nitrofurantoin, macrocrystals 25 mg / nitrofurantoin, monohydrate 75 mg oral capsule (2 sources) Nitrofuran Antibacterial Start: 04-10-2025 End: 04-17-2025 take 1 capsule by mouth in the morning nitrofurantoin, macrocrystal-monohydrate, (Macrobid) 100 MG capsule Indications: UTI symptoms Take 1 capsule (100 mg) by mouth in the morning and 1 capsule (100 mg) before bedtime. Do all this for 7 days. 14 capsule 04/10/2025 04/17/2025 Active Ondansetron (5 sources) Serotonin-3 Receptor Antagonist Ondansetron Active rOPINIRole 0.5 mg oral tablet (20 sources) Nonergot Dopamine Agonist Start: 08-12-2024 End: 09-08-2025 take 1 tablet by mouth once daily Ropinirole 0.5 mg tablet Active 0.5 MG PO Daily July 16, 2025 12:00am Complies with drug therapy Start: 01-19-2024 End: 02-13-2024 take 1 tablet by mouth once daily at bedtime Ropinirole 0.5 mg tablet Discontinued 0 .ROUTE .COMPLEX 90 January 19, 2024 8:33am February 13, 2024 11:34am TAKE 1 TABLET BY MOUTH 1 TO 3 HOURS BEFORE BEDTIME DAILY 90 Start: 01-19-2024 End: 08-06-2024 take 1 tablet by mouth once daily at bedtime Ropinirole 0.5 mg tablet Discontinued 0.5 MG PO January 19, 2024 12:00am January 19, 2024 8:33am TAKE 1 TABLET BY MOUTH 1 TO 3 HOURS BEFORE BEDTIME DAILY Completed/Discontinued Medications Medication Drug Class(es) Dates Sig (Normalized) Sig (Original) atorvastatin 40 mg oral tablet (20 sources) HMG-CoA Reductase Inhibitor Start: 07-16-2025 End: 08-03-2025 take 2 tablets by mouth once daily Atorvastatin 40 mg tablet Discontinued 80 MG PO Daily July 16, 2025 9:58am August 03, 2025 12:29pm Start: 03-25-2024 End: 01-13-2026 take 1 tablet by mouth once daily at bedtime Atorvastatin 80 mg tablet Active 80 MG PO Daily at bedtime August 03, 2025 12:00am Complies with drug therapy Start: 03-19-2024 End: 08-03-2025 take 1 tablet by mouth once daily Atorvastatin (Lipitor) 20 mg tablet Discontinued 20 MG PO Daily March 19, 2024 12:00am August 03, 2025 12:28pm Start: 03-19-2024 End: 07-16-2025 take 1 tablet by mouth once daily Atorvastatin 40 mg tablet Discontinued 40 MG PO Daily March 19, 2024 12:00am July 16, 2025 10:01am busPIRone hydrochloride 10 mg oral tablet (20 sources) Start: 11-13-2024 End: 02-25-2025 take 1 tablet by mouth in the morning busPIRone (Buspar) 10 MG tablet Take 10 mg by mouth in the morning and 10 mg before bedtime. 11/13/2024 02/25/2025 Discontinued (Therapy completed) Start: 05-19-2024 End: 07-24-2024 take 1 tablet by mouth in the morning busPIRone (Buspar) 10 MG tablet Take 10 mg by mouth in the morning and 10 mg before bedtime. 05/19/2024 07/24/2024 Discontinued (Ineffective) Start: 02-09-2024 End: 02-13-2024 take 1 tablet by mouth twice daily Buspirone 10 mg tablet Discontinued 10 MG PO Twice daily February 09, 2024 12:00am February 13, 2024 11:33am take 1 tablet by pastor th twice daily busPIRone HCl 10 MG TAKE 1 TABLET BY MOUTH TWICE A DAY for 90 Active oxybutynin chloride 5 mg oral tablet (19 sources) Cholinergic Muscarinic Antagonist Start: 12-20-2023 End: 02-25-2025 take 1 tablet by mouth every eight hours oxybutynin (Ditropan) 5 MG tablet Take 5 mg by mouth every 8 (eight) hours 01/10/2025 02/25/2025 Discontinued (Therapy completed) take 1 tablet by pastor th three times daily as needed oxyBUTYnin Chloride 5 MG TAKE 1 TABLET B Y MOUTH THREE TIMES A DAY NEEDED for 90 Active simvastatin 40 mg oral tablet (20 sources) HMG-CoA Reductase Inhibitor Start: 01-31-2024 End: 03-19-2024 take 1 tablet by mouth once daily in the evening Simvastatin 40 mg tablet Discontinued 0 .ROUTE .COMPLEX 90 January 31, 2024 8:43am March 19, 2024 2:40pm TAKE 1 TABLET BY MOUTH EVERY DAY IN THE EVENING FOR 90 DAYS Start: 01-30-2024 End: 01-31-2024 take 1 tablet by mouth once daily Simvastatin 40 mg tablet Discontinued 40 MG PO Daily January 30, 2024 12:00am January 31, 2024 8:43am Start: 02-13-2023 take 1 tablet by pastor th every twenty-four hours Simvastatin 40 MG 1 tablet in the evening Orally Once a day for 90 days Feb, Active 24 hr venlafaxine 37.5 mg extended release oral capsule (12 sources) Serotonin and Norepinephrine Reuptake Inhibitor Start: 02-06-2024 End: 02-13-2024 take 1 capsule by mouth once daily Venlafaxine 37.5 mg capsule,extended release 24hr Discontinued 0 .ROUTE .COMPLEX 90 February 06, 2024 8:55am February 13, 2024 11:35am TAKE 1 CAPSULE BY MOUTH EVERY DAY Start: 02-02-2024 End: 02-06-2024 take 1 capsule by mouth once daily Venlafaxine 37.5 mg capsule,extended release 24hr Discontinued 37.5 MG PO Daily February 02, 2024 12:00am February 06, 2024 8:55am take 1 capsule by mo ut once daily Venlafaxine HCl ER 37.5 MG TAKE 1 CAPSULE BY MOUTH EVERY DAY for 90 Active Problems Active Problems Problem Classification Problem Date Documented Da te Episodic/Chronic Acute cerebrovascular disease (20 sources) Cerebrovascular accident; Translations: [Cerebral infarction, unspecified] Onset: 4 02-13-2024 Chronic Acute cerebrovascular disease (1 source) Acute cerebrovascular disease Onset: 4 Allergic reactions (20 sources) Eczema; Translations: [Dermatitis, unspecified] Onset: 4 07-24-2024 Episodic Anxiety disorders (20 sources) Mixed anxiety and depressive disorder; Translations: [Anxiety disorder, unspecified] Onset: 4 Resolved: 5 Chronic Cardiac dysrhythmias (4 sources) Bradycardia, unspecified; Translations: [Bradycardia] Onset: 4 Episodic Chronic obstructive pulmonary disease and bronchiectasis (20 sources) Bronchitis; Translations: [Bronchitis, not specified as acute or chronic] Episodic Diabetes mellitus with complications (20 sources) Type 2 diabetes mellitus; Translations: [Type 2 diabetes mellitus with diabetic chronic kidney disease] Onset: 4 Resolved: 5 09-16-2024 Chronic Disorders of lipid metabolism (20 sources) Hyperlipidemia; Translations: [Other hyperlipidemia] Onset: 3 Chronic Diverticulosis and diverticulitis (8 sources) Diverticulitis of colon; Translations: [Diverticulitis of intestine, part unspecified, without perforation or abscess without bleeding] Onset: 8 Chronic Epilepsy; convulsions (10 sources) Epilepsy; Translations: [Epilepsy, unspecified, not intractable, without status epilepticus] Onset: 8 02-09-2024 Chronic Epilepsy; convulsions (20 sources) Seizure; Translations: [Unspecified convulsions] Onset: 4 Resolved: 5 02-13-2024 Episodic Esophageal disorders (20 sources) Gastroesophageal reflux disease; Translations: [Gastro-esophageal reflux disease without esophagitis] Onset: 4 07-24-2024 Chronic Essential hypertension (20 sources) Essential hypertension; Translations: [Essential (primary) hypertension] Onset: 3 Chronic Gastrointestinal hemorrhage (1 source) Melena Episodic Genitourinary symptoms and ill-defined conditions (20 sources) Dysuria; Translations: [Dysuria] Onset: 8 04-10-2025 Episodic Glaucoma (20 sources) Glaucoma; Translations: [Unspecified glaucoma] Onset: 4 07-24-2024 Chronic Headache; including migraine (20 sources) Migraine; Translations: [Migraine, unspecified, not intractable, without status migrainosus] Onset: 4 02-09-2024 Chronic Headache; including migraine (8 sources) Headache; Translations: [Headache, unspecified] Episodic Malaise and fatigue (2 sources) Other fatigue; Translations: [Fatigue] Onset: 4 03-20-2024 Episodic Mood disorders (20 sources) Major depression, single episode; Translations: [Major depressive disorder, single episode, unspecified] Onset: 4 02-09-2024 Chronic Neoplasms of unspecified nature or uncertain behavior (20 sources) Essential thrombocythemia; Translations: [Essential (hemorrhagic) thrombocythemia] Onset: 5 02-25-2025 Chronic Neoplasms of unspecified nature or uncertain behavior (1 source) Thrombocytosis; Translations: [Thrombocythemia] 03-20-2024 Episodic Nutritional deficiencies (20 sources) Vitamin B12 deficiency (non anemic); Translations: [Deficiency of other specified B group vitamins] Onset: 3 Episodic Osteoarthritis (20 sources) Osteoarthritis of left hip [...] reading, without diagnosis of hypertension] Episodic Other circulatory disease (1 source) Low blood pressure; Translations: [Hypotension, unspecified] 02-14-2024 Episodic Other connective tissue disease (20 sources) Primary fibromyalgia syndrome; Translations: [Fibromyalgia] Onset: 4 07-24-2024 Episodic Other connective tissue disease (20 sources) Tear of right rotator cuff; Translations: [...] upper limb Chronic Other nervous system disorders (20 sources) Aphasia; Translations: [Aphasia] Onset: 4 03-21-2024 Chronic Other nervous system disorders (20 sources) Chronic pain; Translations: [Other chronic pain] [...] thigh; Translations: [Pain in left hip] Episodic Other non-traumatic joint disorders (2 sources) Hip pain; Translations: [Pain in left hip] 08-07-2025 Episodic Pancreatic disorders (not diabetes) (20 sources) Drug-induced acute pancreatitis; Translations: [Drug induced acute pancreatitis without necrosis or infection] Onset: 1 07-24-2024 Episodic Phlebitis; thrombophlebitis and thromboembolism (2 sources) H/O: Deep vein thrombosis; Translations: [Personal history of other venous thrombosis and embolism] 08-07-2025 Episodic Residual codes; unclassified (13 sources) Acute insomnia; Translations: [Insomnia, unspecified] Episodic Residual codes; unclassified (20 sources) Insomnia; Translations: [Insomnia, unspecified] Onset: 4 02-09-2024 Episodic Residual codes; unclassified (8 sources) [...] dependence, cigarettes, uncomplicated; Translations: [Tobacco user] Onset: 1 Chronic Unclassified (8 sources) Exposure to acute respiratory syndrome coronavirus 2; Translations: [Contact with and (suspected) exposure to COVID-19] Urinary tract infections (16 sources) Urinary tract infectious disease; Translations: [Urinary tract infection, site not specified] Onset: 8 Episodic Past or Other Problems Problem Classification Problem Date Documented Da te Episodic/Chronic Abdominal pain (20 sources) Abdominal pain; Translations: [Unspecified abdominal pain] Onset: 10-23-2018 Episodic Diabetes mellitus without complication (20 sources) Abnormal glucose level; Translations: [Other abnormal glucose] Onset: 10-23-2018 Resolved: 02-25-2025 09-23-2024 Episodic Headache; including migraine (13 sources) Headache; including migraine; Translations: [Left temporal headache] Inflammatory diseases of female pelvic organs (8 sources) Acute vaginitis; Translations: [Acute vaginitis] Onset: 11-22-2018 Episodic Mood disorders (20 sources) Mood disorders Onset: 07-24-2024 07-24-2024 Other non-traumatic joint disorders (4 sources) Pain in right hip; Translations: [PAIN IN RIGHT HIP] Onset: 10-18-2022 Episodic Other non-traumatic joint disorders (8 sources) Shoulder joint pain; Translations: [Pain in right shoulder] Onset: 09-03-2018 Episodic Residual codes; unclassified (1 source) Pain, unspecified; Translations: [Pain, unspecified] Onset: 02-12-2024 Episodic Substance-related disorders (2 sources) Narcotic drug user; Translations: [Opioid use, unspecified, uncomplicated] Onset: 04-08-2021 04-08-2021 Episodic Results Test Name Value Interpretation Reference Range Facility ALL CBC WITH AUTO DIFFon BASOPHILS ABSOLUTE AUTO [facility] Basophils/100 WBC (Bld) 0.5 % 0.2 - 2.0 % [facility] Eosinophils/100 WBC (Bld) 2.7 % 0.9 - 7.0 % [facility] Erythrocyte distribution width (RBC) [Ratio] 13.4 % 11.0 - 15.0 % [facility] Hematocrit (Bld) [Volume fraction] 48 % 36.0 - 48.0 % [facility] Hemoglobin (Bld) [Mass/Vol] 16 g/dL 12.0 - 16.0 g/dL [facility] IMMATURE GRANULOCYTES ABS AUTO 0.02 [facility] Immature granulocytes/100 WBC (Bld) 0.3 % 0.0 - 0.5 % [facility] Interpretation and review of laboratory results Abnormal [facility] WBC (Bld) 32.4 % 20.5 - 60. 0 % [facility] MCH (RBC) [Entitic mass] 34.9 pg High 26. 7 - 34.0 pg [facility] MCHC (RBC) [Mass/Vol] 33.3 g/dL 29.9 - 35.2 g/dL [facility] MCV (RBC) [Entitic vol] 104.6 fL High 81.0 - 99.0 fL [facility] MONOCYTES ABSOLUTE AUTO 0.5 [facility] Monocytes/100 WBC (Bld) 8.2 % 1.7 - 12.0 % [facility] NEUTROPHILS ABSOLUTE AUTO 3.5 [facility] Neutrophils/100 WBC (Bld) 55.9 % 43.0 - 75. 0 % [facility] Platelet mean volume (Bld) [Entitic vol] 10.8 fL 9.5 - 13.5 fL [facility] TBH EO # 0.2 [facility] PLT 355 [facility] RBC 4.59 [facility] WBC 6.2 [facility] HbA1c (Bld) [Mass fraction]o n 04-10-2025 Interpretation and review of laboratory results Abnormal [facility] - Hematology and Cell countson 04-10-2025 HbA1c (Bld) [Mass fraction] 5.8 % [facility] Urinalysis macro (dipstick) panel (U)on 04-10-2025 Bilirubin, UA Negative Negative - 4(70) +++ mg/dL [facility] Blood, UA Negative Negative - 50 Hunter/mcL [facility] Clarity, UA Clear [facility] Color, UA Yellow [facility] Glucose, UA Positive Negative - 1999(110) ++++ mg/dL [facility] Comment on above: 250 Interpretation and review of laboratory results Abnormal [facility] Ketones, UA Negative Negative - 160(16) ++++ mg/dL [facility] Leukocytes, UA Trace Negative - 500+++ Fara/mcL [facility] Nitrite, UA Negative Negative - Positive [facility] pH, UA 6 5 - 9 [facility] Protein, UA Negative Negative - 1999(20) ++++ mg/dL [facility] Spec Grav, UA 1.015 1 - 1.03 [facility] Urobilinogen, UA 0.2 0.2 - 12 mg/dL [facility] ALL CBC WITH AUTO DIFFon BASOPHILS ABSOLUTE AUTO 0 [facility] Basophils/100 WBC (Bld) 0.2 % 0.2 - 2.0 % [facility] Eosinophils/100 WBC (Bld) 2.2 % 0.9 - 7.0 % [facility] Erythrocyte distribution width (RBC) [Ratio] 16.1 % High 11.0 - 15.0 % [facility] Hematocrit (Bld) [Volume fraction] 45.9 % 36.0 - 48.0 % [facility] Hemoglobin (Bld) [Mass/Vol] 15.3 g/dL 12.0 - 16.0 g/dL [facility] IMMATURE GRANULOCYTES ABS AUTO 0.02 [facility] Immature granulocytes/100 WBC (Bld) 0.2 % 0.0 - 0.5 % [facility] Interpretation and review of laboratory results Abnormal [facility] LYMPHOCYTES ABSOLUTE AUTO 2.6 [facility] Lymphocytes/100 WBC (Bld) 31.4 % 20.5 - 60. 0 % [facility] MCH (RBC) [Entitic mass] 33.1 pg 26. 7 - 34.0 pg [facility] MCHC (RBC) [Mass/Vol] 33.3 g/dL 29.9 - 35.2 g/dL [facility] MCV (RBC) [Entitic vol] 99.4 fL High 81.0 - 99.0 fL [facility] MONOCYTES ABSOLUTE AUTO 0.6 [facility] Monocytes/100 WBC (Bld) 6.9 % 1.7 - 12.0 % [facility] NEUTROPHILS ABSOLUTE AUTO 4.8 [facility] Neutrophils/100 WBC (Bld) 59.1 % 43.0 - 75. 0 % [facility] Platelet mean volume (Bld) [Entitic vol] 10.6 fL 9.5 - 13.5 fL [facility] TB EO # 0.2 [facility] TB PLT 416 [facility] RBC 4.62 [facility] WBC 8.2 [facility] ALL CBC WITH AUTO DIFFon BASOPHILS ABSOLUTE AUTO 0 [facility] Basophils/100 WBC (Bld) 0.5 % 0.2 - 2.0 % [facility] Eosinophils/100 WBC (Bld) 5.2 % 0.9 - 7.0 % [facility] Erythrocyte distribution width (RBC) [Ratio] 12.4 % 11.0 - 15.0 % [facility] Hematocrit (Bld) [Volume fraction] 49.7 % High 36.0 - 48.0 % [facility] Hemoglobin (Bld) [Mass/Vol] 16.2 g/dL High 12.0 - 16.0 g/dL [facility] IMMATURE GRANULOCYTES ABS AUTO 0.01 [facility] Immature granulocytes/100 WBC (Bld) 0.1 % 0.0 - 0.5 % [facility] Interpretation and review of laboratory results Abnormal [facility] LYMPHOCYTES ABSOLUTE AUTO 2 [facility] Lymphocytes/100 WBC (Bld) 25 % 20.5 - 60. 0 % [facility] MCH (RBC) [Entitic mass] 33.3 pg 26. 7 - 34.0 pg [facility] MCHC (RBC) [Mass/Vol] 32.6 g/dL 29.9 - 35.2 g/dL [facility] MCV (RBC) [Entitic vol] 102.3 fL High 81.0 - 99.0 fL [facility] MONOCYTES ABSOLUTE AUTO 0.7 [facility] Monocytes/100 WBC (Bld) 8.5 % 1.7 - 12.0 % [facility] NEUTROPHILS ABSOLUTE AUTO 4.8 [facility] Neutrophils/100 WBC (Bld) 60.7 % 43.0 - 75. 0 % [facility] Platelet mean volume (Bld) [Entitic vol] 10.7 fL 9.5 - 13.5 fL [facility] EO # 0.4 [facility] PLT 546 High [facility] RBC 4.86 [facility] WBC 7.9 [facility] ALL CBC WITH AUTO DIFFon BASOPHILS ABSOLUTE AUTO 0 [facility] Basophils/100 WBC (Bld) 0.6 % 0.2 - 2.0 % [facility] Eosinophils/100 WBC (Bld) 3.5 % 0.9 - 7.0 % [facility] Erythrocyte distribution width (RBC) [Ratio] 14.7 % 11.0 - 15.0 % [facility] Hematocrit (Bld) [Volume fraction] 42.2 % 36.0 - 48.0 % [facility] Hemoglobin (Bld) [Mass/Vol] 13.9 g/dL 12.0 - 16.0 g/dL [facility] IMMATURE GRANULOCYTES ABS AUTO 0.01 [facility] Immature granulocytes/100 WBC (Bld) 0.1 % 0.0 - 0.5 % [facility] Interpretation and review of laboratory results Abnormal [facility] LYMPHOCYTES ABSOLUTE AUTO 2.5 [facility] Lymphocytes/100 WBC (Bld) 36.5 % 20.5 - 60. 0 % [facility] MCH (RBC) [Entitic mass] 35 pg High 26. 7 - 34.0 pg [facility] MCHC (RBC) [Mass/Vol] 32.9 g/dL 29.9 - 35.2 g/dL [facility] MCV (RBC) [Entitic vol] 106.3 fL High 81.0 - 99.0 fL [facility] MONOCYTES ABSOLUTE AUTO 0.6 [facility] Monocytes/100 WBC (Bld) 8.4 % 1.7 - 12.0 % [facility] NEUTROPHILS ABSOLUTE AUTO 3.5 [facility] Neutrophils/100 WBC (Bld) 50.9 % 43.0 - 75. 0 % [facility] Platelet mean volume (Bld) [Entitic vol] 10.7 fL 9.5 - 13.5 fL [facility] TBH EO # 0.2 [facility] PLT 340 [facility] RBC 3.97 Low [facility] WBC 6.8 [facility] ALL CBC WITH AUTO DIFFon BASOPHILS ABSOLUTE AUTO 0.0 [facility] Basophils/100 WBC (Bld) 0.5 % 0.2 - 2.0 % [facility] Eosinophils/100 WBC (Bld) 3.6 % 0.9 - 7.0 % [facility] Erythrocyte distribution width (RBC) [Ratio] 16.5 % High 11.0 - 15.0 % [facility] Hematocrit (Bld) [Volume fraction] 41.6 % 36.0 - 48.0 % [facility] Hemoglobin (Bld) [Mass/Vol] 14.1 g/dL 12.0 - 16.0 g/dL [facility] IMMATURE GRANULOCYTES ABS AUTO 0.01 [facility] Immature granulocytes/100 WBC (Bld) 0.1 % 0.0 - 0.5 % [facility] Interpretation and review of laboratory results Abnormal [facility] LYMPHOCYTES ABSOLUTE AUTO 2.6 [facility] Lymphocytes/100 WBC (Bld) 36.0 % 20.5 - [...] [facility] PLT 315 [facility] TB RBC 4.04 Low [facility] WBC 7.3 [facility] Office Visiton 04-02-2024 Follow-up visit [id number] Lesly Steve 1950 F Date Provider Department Center 04/02/2024 [id number], EHAB CARD [facility] Family History Family history unknown: Yes Level of Service:93518 [place] OFFICE/OUTPATIENT NEW MODERATE MDM 45 MINUTES Normal [facility] Orders Onlyon 03-29-2024 Orders Only [id number] Lesly Steve 1950 F Date Provider Department Center 03/29/2024 [id number], HISTORICAL CARD [facility] No family history on file Normal [facility] Referrals Officeon 4 Referrals Office [phone] [id number] Normal [facility] Urine Cultureon 03-19-2024 Bacteria identified Cx Nom (U) <9,000 colonies/ml mixed bacterial skin contaminants 2 Days PERFORMED BY: [facility] [address] [place] [id number] PATHOLOGIST [employer] AYANA TAY M.D. Normal [facility] Comment on above: Performed By: #### C UU #### [facility] [address] [id number] [facility] Basophils Auto (Bld) [#/Vol] on 02-09-2024 Basophils (Bld) [#/Vol] 0.0 10 3/uL 0.0-0.1 [facility] Basophils/100 WBC Auto (Bld) on 02-09-2024 Basophils/100 WBC (Bld) 0.3 % 0.2-2.0 [facility] Cholesterol in LDL Calc [Mas s/Vol]on 02-09-2024 Cholesterol in LDL [Mass/Vol] 141.0 mg/dL [facility] Comment on above: <100 mg/dl [id number] 0-129 mg/dl NEAR OR ABOVE [id number] mg/dl BORDERLINE [id number] mg/dl HIGH>190 mg/dl VERY HIGH Cholesterol in VLDL Calc [Ma ss/Vol]on 02-09-2024 Cholesterol in VLDL [Mass/Vol] 25.2 mg/dL [facility] Eosinophils/100 WBC Auto (Bl d)on 02-09-2024 Eosinophils/100 WBC (Bld) 2.7 % 0.9-7.0 [facility] Erythrocyte distribution wid th Auto (RBC) [Ratio]on 02-09-2024 Erythrocyte distribution width (RBC) [Ratio] 14.0 % 11.0-15.0 [facility] Estimated glomerular filtrat ion rate (GFR) non- Americanon 02-09-2024 GFR/1.73 sq M.predicted among non-blacks MDRD (S/P/Bld) [Vol rate/Area] 59 mL/min/{1.73_m2} >=60 [facility] Hematocrit Auto (Bld) [Volum e fraction]on 02-09-2024 Hematocrit (Bld) [Volume fraction] 45.5 % 36.0-48.0 [facility] Hemoglobin [Mass/volume] in Bloodon 02-09-2024 Hemoglobin (Bld) [Mass/Vol] 14.6 g/dL 12.0-16.0 [facility] Laboratory - Chemistry and C hemistry - challengeon 02-09-2024 Calcium [Mass/Vol] 9.6 mg/dL 8.5-10.1 [facility] Chloride [Moles/Vol] 103 mmol/L 98-107 [facility] Cholesterol [Mass/Vol] 200 mg/dL <=200 Fi [facility] Cholesterol in HDL [Mass/Vol] 34 mg/dL 40-60 [facility] Comment on above: > or =60 mg/dl - LOW CARDIOVASCULAR RISK<40 mg/dl - HIGH CARDIOVASCULAR RISK CO2 [Moles/Vol] 26.1 mmol/L 21.0-32.0 [facility] Creatinine [Mass/Vol] 0.93 mg/dL 0.55-1.02 [facility] GFR/1.73 sq M.predicted MDRD (S/P/Bld) [Vol rate/Area] mL/min/{1.73_m2} >=60 [facility] Glucose [Mass/Vol] 116 mg/dL 74-106 [facility] Potassium [Moles/Vol] 4.2 mmol/L 3.5-5.1 [facility] Sodium [Moles/Vol] 139 mmol/L 136-145 [facility] Triglyceride [Mass/Vol] 126 mg/dL <=150 F [facility] Urea nitrogen [Mass/Vol] 22.0 mg/dL 7.0-18.0 [facility] Urea nitrogen/Creatinine [Mass ratio] 23.7 mg/mg [facility] Laboratory - Hematology and Cell countson 02-09-2024 Immature granulocytes/100 WBC (Bld) 0.3 % 0.0-0.5 [facility] Leukocytes [#/volume] correc dinora for nucleated erythrocytes in Blood by Automated counon 02-09-2024 WBC corrected for nucl RBC Auto (Bld) [#/Vol] 12.2 10 3/uL 4.0-11.0 [facility] Lymphocytes Auto (Bld) [#/Vo l]on 02-09-2024 Lymphocytes (Bld) [#/Vol] 2.0 10 3/uL 1.2-3.8 [facility] Lymphocytes/100 WBC Auto (Bl d)on 02-09-2024 Lymphocytes/100 WBC (Bld) 16.4 % 20.5-60.0 [facility] MCH Auto (RBC) [Entitic mass ]on 02-09-2024 MCH (RBC) [Entitic mass] 29.4 pg 26.7-34.0 [facility] MCHC Auto (RBC) [Mass/Vol]on 02-09-2024 MCHC (RBC) [Mass/Vol] 32.1 g/dL 29.9-35.2 [facility] MCV Auto (RBC) [Entitic vol] on 02-09-2024 MCV (RBC) [Entitic vol] 91.7 fL 81.0-99.0 F [facility] Monocytes Auto (Bld) [#/Vol] on 02-09-2024 Monocytes (Bld) [#/Vol] 0.9 10 3/uL 0.3-0.8 [facility] Monocytes/100 WBC Auto (Bld) on 02-09-2024 Monocytes/100 WBC (Bld) 7.7 % 1.7-12.0 F [facility] Neutrophils Auto (Bld) [#/Vo l]on 02-09-2024 Neutrophils (Bld) [#/Vol] 8.9 10 3/uL 1.4-6.5 [facility] Neutrophils/100 WBC Auto (Bl d)on 02-09-2024 Neutrophils/100 WBC (Bld) 72.6 % 43.0-75.0 [facility] No Panel Informationon 02-08 Eosinophils # (Auto) 0.3 10 3/uL 0.0-0.7 [facility] Immature Granulocyte # (Auto) 0.04 10 3/uL 0.00-0.03 [facility] Platelet mean volume Auto (B ld) [Entitic vol]on 02-09-2024 Platelet mean volume (Bld) [Entitic vol] 10.9 fL 9.5-13.5 [facility] Platelets Auto (Bld) [#/Vol] on 02-09-2024 Platelets (Bld) [#/Vol] 546 10 3/uL 150-450 [facility] RBC Auto (Bld) [#/Vol]on RBC (Bld) [#/Vol] 4.96 10 6/uL 4.20-5.40 [facility] Serum or plasma anion gap de terminationon 02-09-2024 Anion gap [Moles/Vol] 14.1 mmol[facility] Serum or plasma total choles terol/high density lipoprotein (HDL) cholesterol mass maury 02-09-2024 Cholesterol.total/Cholest janay in HDL [Mass ratio] 5.9 {ratio} [facility] Comment on above: 3.3 - 4.4 LOW RISK4. 4 - 7.1 AVERAGE RISK7.1 - 11.0 MODERATE RISK>11.0 HIGH RISK Automated epithelial cells c ount in urine sediment (number/area)on 02-08-2024 Epithelial cells Auto (Urine sed) [#/Area] MODERATE #/LPF NONE/RARE [facility] Automated leukocytes count i n urine sediment (number/area)on 02-08-2024 WBC Auto (Urine sed) [#/Area] 0-2 #/HPF 0-2 [facility] Automated urine specific gra vity by refractometryon 02-08-2024 Specific gravity Refractometry automated (U) [Rel density] 1.025 1.005-1.025 [facility] Basophils Auto (Bld) [#/Vol] on 02-08-2024 Basophils (Bld) [#/Vol] 0.1 10 3/uL 0.0-0.1 [facility] Basophils/100 WBC Auto (Bld) on 02-08-2024 Basophils/100 WBC (Bld) 0.4 % 0.2-2.0 F [facility] Bilirubin Auto test strip (U ) [Mass/Vol]on 02-08-2024 Bilirubin (U) [Mass/Vol] Negative NEGATIVE [facility] Casts typing in urine sedime nt by light microscopyon 02-08-2024 Casts LM Nom (Urine sed) NONE SEEN #/LPF NONE S EEN [facility] Color Auto (U)on 02-08-2024 Color (U) YELLOW YELLOW [facility] Eosinophils/100 WBC Auto (Bl d)on 02-08-2024 Eosinophils/100 WBC (Bld) 1.9 % 0.9-7.0 [facility] Erythrocyte distribution wid th Auto (RBC) [Ratio]on 02-08-2024 Erythrocyte distribution width (RBC) [Ratio] 13.9 % 11.0-15.0 [facility] Estimated glomerular filtrat ion rate (GFR) non- Americanon 02-08-2024 GFR/1.73 sq M.predicted among non-blacks MDRD (S/P/Bld) [Vol rate/Area] 51 mL/min/{1.73_m2} >=60 [facility] Globulin Calc (S) [Mass/Vol] on 02-08-2024 Globulin (S) [Mass/Vol] 3.7 g/dL F [facility] Hematocrit Auto (Bld) [Volum e fraction]on 02-08-2024 Hematocrit (Bld) [Volume fraction] 48.8 % 36.0-48.0 [facility] Hemoglobin [Mass/volume] in Bloodon 02-08-2024 Hemoglobin (Bld) [Mass/Vol] 15.8 g/dL 12.0-16.0 [facility] INR in Platelet poor plasma by Coagulation assayon 02-08-2024 INR Coag (PPP) [Relative time] 1.05 {INR} [facility] Comment on above: DESIRED INR:2.0-3.0 CONDITIONS NOT LISTED BELOW2.5-3.5 FOR PROSTHETIC HEART VALVE REPLACEMENT2.5-3.5 RECURRENT THROMBOSIS Ketones Auto test strip (U) [Mass/Vol]on 02-08-2024 Ketones (U) [Mass/Vol] Negative NEGATIVE [facility] - Chemistry and C hemistry - challengeon 02-08-2024 Albumin [Mass/Vol] 4.0 g/dL 3.4-5.0 [facility] ALP [Catalytic activity/Vol] 80 U/L 46-116 [facility] ALT [Catalytic activity/Vol] 25 U/L 14-59 [facility] AST [Catalytic activity/Vol] 31 U/L 15-37 [facility] Bilirubin [Mass/Vol] 0.4 mg/dL 0.2-1.0 [facility] Calcium [Mass/Vol] 9.5 mg/dL 8.5-10.1 [facility] Chloride [Moles/Vol] 100 mmol/L 98-107 [facility] CO2 [Moles/Vol] 28.0 mmol/L 21.0-32.0 [facility] Creatinine [Mass/Vol] 1.06 mg/dL 0.55-1.02 [facility] GFR/1.73 sq M.predicted MDRD (S/P/Bld) [Vol rate/Area] mL/min/{1.73_m2} >=60 [facility] Glucose [Mass/Vol] 105 mg/dL 74-106 [facility] Potassium [Moles/Vol] 3.7 mmol/L 3.5-5.1 [facility] Protein [Mass/Vol] 7.7 g/dL 6.4-8.2 [facility] Sodium [Moles/Vol] 137 mmol/L 136-145 [facility] Urea nitrogen [Mass/Vol] 19.0 mg/dL 7.0-18.0 [facility] Urea nitrogen/Creatinine [Mass ratio] 17.9 mg/mg [facility] Laboratory - Hematology and Cell countson 02-08-2024 Immature granulocytes/100 WBC (Bld) 0.2 % 0.0-0.5 [facility] Laboratory - Microbiology an d Antimicrobial susceptibilityOrdered By: Robert Schwartz on 02-08-2024 Bacteria identified Cx Nom (U) [facility] Leukocytes [#/volume] correc dinora for nucleated erythrocytes in Blood by Automated counon 02-08-2024 WBC corrected for nucl RBC Auto (Bld) [#/Vol] 13.4 10 3/uL 4.0-11.0 [facility] Lymphocytes Auto (Bld) [#/Vo l]on 02-08-2024 Lymphocytes (Bld) [#/Vol] 2.7 10 3/uL 1.2-3.8 [facility] Lymphocytes/100 WBC Auto (Bl d)on 02-08-2024 Lymphocytes/100 WBC (Bld) 20.3 % 20.5-60.0 [facility] MCH Auto (RBC) [Entitic mass ]on 02-08-2024 MCH (RBC) [Entitic mass] 30.2 pg 26.7-34.0 [facility] MCHC Auto (RBC) [Mass/Vol]on 02-08-2024 MCHC (RBC) [Mass/Vol] 32.4 g/dL 29.9-35.2 [facility] MCV Auto (RBC) [Entitic vol] on 02-08-2024 MCV (RBC) [Entitic vol] 93.1 fL 81.0-99.0 F [facility] Monocytes Auto (Bld) [#/Vol] on 02-08-2024 Monocytes (Bld) [#/Vol] 1.1 10 3/uL 0.3-0.8 [facility] Monocytes/100 WBC Auto (Bld) on 02-08-2024 Monocytes/100 WBC (Bld) 8.1 % 1.7-12.0 F [facility] Mucus LM Ql (Urine sed)on Mucus Ql (Urine sed) TRACE NONE SEEN [facility] Neutrophils Auto (Bld) [#/Vo l]on 02-08-2024 Neutrophils (Bld) [#/Vol] 9.3 10 3/uL 1.4-6.5 [facility] Neutrophils/100 WBC Auto (Bl d)on 02-08-2024 Neutrophils/100 WBC (Bld) 69.1 % 43.0-75.0 [facility] No Panel Informationon 02-07 Urine Culture Reflexed YES [facility] Urine Microscopic Review YES [facility] Eosinophils # (Auto) 0.3 10 3/uL 0.0-0.7 [facility] Immature Granulocyte # (Auto) 0.03 10 3/uL 0.00-0.03 [facility] Platelet mean volume Auto (B ld) [Entitic vol]on 02-08-2024 Platelet mean volume (Bld) [Entitic vol] 10.5 fL 9.5-13.5 [facility] Platelets Auto (Bld) [#/Vol] on 02-08-2024 Platelets (Bld) [#/Vol] 585 10 3/uL 150-450 [facility] Protein Auto test strip (U) [Mass/Vol]on 02-08-2024 Protein (U) [Mass/Vol] TRACE mg/dL NEG/TRACE F [facility] Prothrombin time (PT)on PT Coag (PPP) [Time] 11.1 s 9.0-11.6 [facility] RBC Auto (Bld) [#/Vol]on RBC (Bld) [#/Vol] 5.24 10 6/uL 4.20-5.40 [facility] Serum or plasma albumin/glob ulin mass ratioon 02-08-2024 Albumin/Globulin [Mass ratio] 1.1 {ratio} [facility] Serum or plasma anion gap de terminationon 02-08-2024 Anion gap [Moles/Vol] 12.7 mmol/L [facility] Specific gravity Auto test s trip (U) [Rel density]on 02-08-2024 Specific gravity (U) [Rel density] CLEAR CLEAR [facility] Urine bacteria detection by automated methodon 02-08-2024 Bacteria Auto Ql (U) MODERATE #/HPF NONE SEEN [facility] Urine glucose measurement by test strip (mass/volume)on 02-08-2024 Glucose Test strip (U) [Mass/Vol] Negative NEGATIVE [facility] Urine hemoglobin detection b y automated test stripon 02-08-2024 Hemoglobin Auto test strip Ql (U) Negative NEGATIVE [facility] Urine nitrite detection by a utomated test stripon 02-08-2024 Nitrite Auto test strip Ql (U) SMALL NEGATIVE [facility] Nitrite Auto test strip Ql (U) Negative NEGATIVE [facility] Urine sediment crystal ident ification by light microscopyon 02-08-2024 Crystals LM Nom (Urine sed) None Seen #/HPF None Seen [facility] Urine sediment leukocyte cou nt by microscopy (number/high power field)on 02-08-2024 WBC LM.HPF (Urine sed) [#/Area] 10-20 #/HPF NONE SEEN [facility] Urobilinogen Auto test strip (U) [Mass/Vol]on 02-08-2024 Urobilinogen Qn (U) 0.2 {Toshia'U}/dL 0.2-1.0 [facility] pH Auto test strip (U)on pH (U) 5.5 [pH] 5.0-9.0 [facility] CBC AUTO DIFFon 02-09-2023 BASO # 0.0 103/ul Normal 0.0-0.1 [facility] Comment on above: Performed By: #### C BC #### [facility] [address] [address] [address] Thierno Phipps Basophils/100 WBC (Bld) 0.4 % Normal 0.2-2.0 [facility] Comment on above: Performed By: #### C BC #### [facility] [address] [address] [address] Thierno Phipps EO # 0.5 103/ul Normal 0.0-0.7 [facility] Comment on above: Performed By: #### C BC #### [facility] [address] [place] [address] Dr. Thierno Phipps Eosinophils/100 WBC (Bld) 4.8 % Normal 0.9-7.0 [facility] Comment on above: Performed By: #### C BC #### [facility] [address] [address] [address] Thierno Phipps Erythrocyte distribution width (RBC) [Ratio] 13.2 % Normal 11.0-15.0 [facility] Comment on above: Performed By: #### C BC #### [facility] [address] [place] [address] Dr. Thierno Phipps Hematocrit (Bld) [Volume fraction] 48.4 % Critically high 36.0-48.0 [facility] Comment on above: Performed By: #### C BC #### [facility] [address] [address] [address] Thierno Phipps Hemoglobin (Bld) [Mass/Vol] 15.8 g/dL Normal 12.0-16.0 [facility] Comment on above: Performed By: #### C BC #### [facility] [address] [address] [address] Thierno Phipps IG # 0.03 10e3/ul Normal 0.00-0.03 [facility] Comment on above: Performed By: #### C BC #### [facility] [facility] [address] [place] [address] Dr. Thierno Phipps IG % 0.3 % Normal 0.0-0.5 [facility] Comment on above: Performed By: #### C BC #### [facility] [address] [place] [address] Dr. Thierno Phipps LYMPH # 2.9 103/ul Normal 1.2-3.8 [facility] Comment on above: Performed By: #### C BC #### [facility] [address] [place] [address] Dr. Thierno Phipps Lymphocytes/100 WBC (Bld) 30.1 % Normal 20.5-60.0 [facility] Comment on above: Performed By: #### C BC #### [facility] [address] [place] [address] Dr. Thierno Phipps MANUAL DIFF REQ NO Normal [facility] Comment on above: Performed By: #### C BC #### [facility] [address] [place] [address] Dr. Thierno Phipps MCH (RBC) [Entitic mass] 29.6 pg Normal 26.7-34.0 [facility] Comment on above: Performed By: #### C BC #### [facility] [address] [place] [address] Dr. Thierno Phipps MCHC (RBC) [Mass/Vol] 32.6 g/dL Normal 29.9-35.2 [facility] Comment on above: Performed By: #### C BC #### [facility] [address] [place] [address] Dr. Thierno Phipps MCV (RBC) [Entitic vol] 90.8 fL Normal 81.0-99.0 [facility] Comment on above: Performed By: #### C BC #### [facility] [address] [place] [address] Dr. Thierno Phipps MONO # 0.8 103/ul Normal 0.3-0.8 [facility] Comment on above: Performed By: #### C BC #### [facility] [address] [place] [address] Dr. Thierno Phipps Monocytes/100 WBC (Bld) 8.2 % Normal 1.7-12.0 [facility] Comment on above: Performed By: #### C BC #### [facility] [address] [place] [address] Dr. Thierno Phipps NEUT # 5.4 103/ul Normal 1.4-6.5 [facility] Comment on above: Performed By: #### C BC #### [facility] [address] [place] [address] Dr. Thierno Phipps Neutrophils/100 WBC (Bld) 56.2 % Normal 43.0-75.0 [facility] Comment on above: Performed By: #### C BC #### [facility] [address] [place] [address] Dr. Thierno Phipps Platelet mean volume (Bld) [Entitic vol] 10.4 fL Normal 9.5-13.5 [facility] Comment on above: Performed By: #### C BC #### [facility] [address] [place] [address] Dr. Thierno Phipps PLT 626 103/ul Critically high 150-450 [facility] Comment on above: Performed By: #### C BC #### [facility] [address] [place] [address] Dr. Thierno Phipps RBC 5.33 106/ul Normal 4.20-5.40 [facility] Comment on above: Performed By: #### C BC #### [facility] [address] [place] [address] Dr. Thierno Phipps WBC 9.6 103/ul Normal 4.0-11.0 [facility] Comment on above: Performed By: #### C BC #### [facility] [address] [place] [address] Dr. Thierno Phipps LIPID PROFILEon 02-09-2023 CHOL-HDL RATIO NORM SEE BELOW Normal [facility] Comment on above: Result Comment: 3.3 - 4.4 LOW RISK 4.4 - 7.1 AVERAGE RISK 7.1 - 11.0 MODERATE RISK >11.0 HIGH RISK Performed By: #### L IPID, CMP #### [facility] [address] [address] [address] Thierno Phipps Cholesterol [Mass/Vol] 267 mg/dL Critically high <=200 [facility] Comment on above: Performed By: #### L IPID, CMP #### [facility] [address] [address] [address] Thierno Phipps Cholesterol in HDL [Mass/Vol] 35 mg/dL Critically low 40-60 [facility] Comment on above: Performed By: #### L IPID, CMP #### [facility] [address] [address] [address] Thierno Phipps Cholesterol in LDL [Mass/Vol] 186.0 mg/dL Normal [facility] Comment on above: Performed By: #### L IPID, CMP #### [facility] [address] [place] [address] Dr. Thierno Phipps Cholesterol.total/Cholest janay in HDL [Mass ratio] 7.6 {ratio} Normal [facility] Comment on above: Performed By: #### L IPID, CMP #### [facility] [address] [address] [address] Thierno Phipps HDL NORMAL > or = 60 mg/dl - LOW CARDIOVASCULAR RISK <40 mg/dl - HIGH CARDIOVASCULAR RISK Normal [facility] Comment on above: Performed By: #### L IPID, CMP #### [facility] [address] [address] [address] Thierno Phipps LDL CALC NORMAL SEE BELOW Normal [facility] Comment on above: Result Comment: <100 mg/dl OPTIMAL 100 - 129 mg/dl NEAR OR ABOVE OPTIMAL 130 - 159 mg/dl BORDERLINE HIGH 160 - 189 mg/dl HIGH >190 mg/dl VERY HIGH Performed By: #### L IPID, CMP #### [facility] [address] [address] [address] Thierno Phipps Triglyceride [Mass/Vol] 230 mg/dL Critically high <=150 [facility] Comment on above: Performed By: #### L IPID, CMP #### [facility] [address] [address] [address] Thierno Phipps VLDL CALC 46.0 mg/dL Normal [facility] Comment on above: Performed By: #### L IPID, CMP #### [facility] [address] [place] [address] Dr. Thierno Phipps MICROALBUMIN, RAND URon 04-0 mALB <1.3 Normal <=30.0 [facility] Comment on above: Performed By: #### M ALBR #### [facility] [address] [place] [address] Dr. Thierno Phipps PROF 14(COMP METB)on 023 Albumin [Mass/Vol] 4.0 g/dL Normal 3.4-5.0 [facility] Comment on above: Performed By: #### L IPID, CMP #### [facility] [address] [place] [address] Dr. Thierno Phipps Albumin/Globulin [Mass ratio] 1.0 {ratio} Normal [facility] Comment on above: Performed By: #### L IPID, CMP #### [facility] [address] [place] [address] Dr. Thierno Phipps ALP [Catalytic activity/Vol] 93 U/L Normal 46-116 [facility] Comment on above: Performed By: #### L IPID, CMP #### [facility] [address] [place] [address] Dr. Thierno Phipps ALT [Catalytic activity/Vol] 30 U/L Normal 14-59 [facility] Comment on above: Performed By: #### L IPID, CMP #### [facility] [address] [place] [address] Dr. Thierno Phipps Anion gap [Moles/Vol] 7.9 mmol/L Normal [facility] Comment on above: Performed By: #### L IPID, CMP #### [facility] [address] [place] [address] Dr. Thierno Phipps AST [Catalytic activity/Vol] 18 U/L Normal 15-37 [facility] Comment on above: Performed By: #### L IPID, CMP #### [facility] [address] [address] [address] Thierno Phipps Bilirubin [Mass/Vol] 0.4 mg/dL Normal 0.2-1.0 [facility] Comment on above: Performed By: #### L IPID, CMP #### [facility] [address] [place] [address] Dr. Thierno Phipps Calcium [Mass/Vol] 10.0 mg/dL Normal 8.5-10.1 [facility] Comment on above: Performed By: #### L IPID, CMP #### [facility] [address] [address] [address] Thierno Phipps Chloride [Moles/Vol] 101 mmol/L Normal 98-107 [facility] Comment on above: Performed By: #### L IPID, CMP #### [facility] [address] [place] [address] Dr. Thierno Phipps CO2 [Moles/Vol] 32.9 mmol/L Critically high 21.0-32.0 [facility] Comment on above: Performed By: #### L IPID, CMP #### [facility] [address] [place] [address] Dr. Thierno Phipps Creatinine [Mass/Vol] 0.97 mg/dL Normal 0.55-1.02 [facility] Comment on above: Performed By: #### L IPID, CMP #### [facility] [address] [place] [address] Dr. Tiherno Phipps EGFR-AF WALLISIAN >60 Normal >=60 [facility] Comment on above: Performed By: #### L IPID, CMP #### [facility] [address] [place] [address] Dr. Thierno Phipps EGFR-NON AF WALLISIAN 56 mL/min/1.73m2 Critically low >=60 [facility] Comment on above: Performed By: #### L IPID, CMP #### [facility] [address] [place] [address] Dr. Thierno Phipps Globulin (S) [Mass/Vol] 4.0 g/dL Normal [facility] Comment on above: Performed By: #### L IPID, CMP #### [facility] [address] [address] [address] Thierno Phipps Glucose [Mass/Vol] 119 mg/dL Critically high 74-106 [facility] Comment on above: Performed By: #### L IPID, CMP #### [facility] [address] [address] [address] Thierno Phipps Potassium [Moles/Vol] 3.8 mmol/L Normal 3.5-5.1 [facility] Comment on above: Performed By: #### L IPID, CMP #### [facility] [address] [address] [address] Thierno Phipps Protein [Mass/Vol] 8.0 g/dL Normal 6.4-8.2 [facility] Comment on above: Performed By: #### L IPID, CMP #### [facility] [address] [place] [address] Dr. Thierno Phipps Sodium [Moles/Vol] 138 mmol/L Normal 136-145 [facility] Comment on above: Performed By: #### L IPID, CMP #### [facility] [address] [address] [address] Thierno Phipps Urea nitrogen [Mass/Vol] 14.0 mg/dL Normal 7.0-18.0 [facility] Comment on above: Performed By: #### L IPID, CMP #### [facility] [address] [address] [address] Thierno Phipps Urea nitrogen/Creatinine [Mass ratio] 14.4 mg/mg Normal [facility] Comment on above: Performed By: #### L IPID, CMP #### [facility] [address] [address] [address] Thierno Phipps XR LSPINE 2_3 VIEWSon [...] RAIN HOWE Date: 2022-10-19 21:47 Normal [facility] HIP RT 2 3V W PELVISon [...] CHAITANYA DAVIS Date: 2022-10-18 16:56 Normal [facility] CT LUNG CANCER SCREENINGon 0 05-17-2022 CT [...] Date: 2022-05-17 15:19 Normal [facility] XR CHEST 2 Von 04-13-2022 XR CHEST [...] by: WICHO CUETO Date: 2022-04-13 13:32 Normal [facility] XR KUB 1 VIEWon 04-13-2022 XR KUB [...] by: CHAITANYA CROCKER Date: 2022-04-13 17:20 Normal [facility] Vital Signs Date Time Vital Sign Value Performing Clinician Facility 08-07-2025 13:22040 Body height 162.56 cm Magdalene Goodrich NP-C Work Phone: [facility] 08-07-2025 13:22040 Body mass index (BMI) [Ratio] 23.6 kg/m2 Magdalene Goodrich PATIENT OBSERVATION ASSISTANT-C Work Phone: [facility] 08-07-2025 13:22040 Body temperature 98 [degF] Magdalene Goodrich PATIENT OBSERVATION ASSISTANT-C Work Phone: [facility] 08-07-2025 13:22040 Body weight 62.31 kg Magdalene Goodrich PATIENT OBSERVATION ASSISTANT-C Work Phone: [facility] 08-07-2025 13:22-0400 Diastolic blood pressure 90 mm[Hg] Magdalene Ritchiehholz PATIENT OBSERVATION ASSISTANT-C Work Phone: [facility] 08-07-2025 13:22-0400 Heart rate 59 /min Magdalene Aichholz PATIENT OBSERVATION ASSISTANT-C Work Phone: [facility] 08-07-2025 13:22-0400 Respiratory rate 16 /min Magdalene Aichholz PATIENT OBSERVATION ASSISTANT-C Work Phone: [facility] 08-07-2025 13:22-0400 SaO2% (BldA) [Mass fraction] 95 % Magdalene Aichholz PATIENT OBSERVATION ASSISTANT-C Work Phone: [facility] 08-07-2025 13:22-0400 Systolic blood pressure 150 mm[Hg] Magdalene Aichholz PATIENT OBSERVATION ASSISTANT-C Work Phone: [facility] 06-10-2025 13:03-0400 Body mass index (BMI) [Ratio] 24.03 kg/m2 Magdalene Chauhholz PATIENT OBSERVATION ASSISTANT Work Phone: [facility] 06-10-2025 13:03-0400 Body temperature 98.1 [degF] Magdalene Aichholz PATIENT OBSERVATION ASSISTANT Work Phone: [facility] 06-10-2025 13:03-0400 Body weight 63.5 kg Magdalene Chauhholz PATIENT OBSERVATION ASSISTANT Work Phone: [facility] 06-10-2025 13:03-0400 Diastolic blood pressure 88 mm[Hg] Magdalene Aichholz PATIENT OBSERVATION ASSISTANT Work Phone: [facility] 06-10-2025 13:03-0400 Heart rate 56 /min Magdalene Aichholz PATIENT OBSERVATION ASSISTANT Work Phone: [facility] 06-10-2025 13:03-0400 Respiratory rate 18 /min Magdalene Aichholz PATIENT OBSERVATION ASSISTANT Work Phone: [facility] 06-10-2025 13:03-0400 SaO2% (BldA) [Mass fraction] 95 % Magdalene Aichholz PATIENT OBSERVATION ASSISTANT Work Phone: [facility] 06-10-2025 13:03-0400 Systolic blood pressure 144 mm[Hg] Magdalene Juanisholz PATIENT OBSERVATION ASSISTANT Work Phone: [facility] 04-10-2025 14:10-0400 Body mass index (BMI) [Ratio] 23.24 kg/m2 Magdalene Aichholz PATIENT OBSERVATION ASSISTANT Work Phone: [facility] 04-10-2025 14:10-0400 Body temperature 98.1 [degF] Magdalene Aichholz PATIENT OBSERVATION ASSISTANT Work Phone: [facility] 04-10-2025 14:10-0400 Body weight 61.42 kg Magdalene Aichholz PATIENT OBSERVATION ASSISTANT Work Phone: [facility] 04-10-2025 14:10-0400 Diastolic blood pressure 90 mm[Hg] Magdalene Aichholz PATIENT OBSERVATION ASSISTANT Work Phone: [facility] 04-10-2025 14:10-0400 Heart rate 55 /min Magdalene Chauhholz PATIENT OBSERVATION ASSISTANT Work Phone: [facility] 04-10-2025 14:10-0400 Respiratory rate 20 /min Magdalene Aichholz PATIENT OBSERVATION ASSISTANT Work Phone: [facility] 04-10-2025 14:10-0400 SaO2% (BldA) [Mass fraction] 96 % Magdalene Chauhholz PATIENT OBSERVATION ASSISTANT Work Phone: [facility] 04-10-2025 14:10-0400 Systolic blood pressure 140 mm[Hg] Magdalene Aichholz PATIENT OBSERVATION ASSISTANT Work Phone: [facility] 02-25-2025 14:10-0400 Body mass index (BMI) [Ratio] 22.45 kg/m2 Magdalene Aichholz PATIENT OBSERVATION ASSISTANT Work Phone: [facility] 02-25-2025 14:10-0400 Body temperature 98.1 [degF] Magdalene Aichholz PATIENT OBSERVATION ASSISTANT Work Phone: [facility] 02-25-2025 14:10-0400 Body weight 59.33 kg Magdalene Aichholz PATIENT OBSERVATION ASSISTANT Work Phone: [facility] 02-25-2025 14:10-0400 Diastolic blood pressure 82 mm[Hg] Magdalene Goodrich PATIENT OBSERVATION ASSISTANT Work Phone: [facility] 02-25-2025 14:10-0400 Heart rate 62 /min Magdalene Goodrich PATIENT OBSERVATION ASSISTANT Work Phone: [facility] 02-25-2025 14:10-0400 Respiratory rate 20 /min Magdalene Goodrich PATIENT OBSERVATION ASSISTANT Work Phone: [facility] 02-25-2025 14:10-0400 SaO2% (BldA) [Mass fraction] 95 % Magdalene Goodrich PATIENT OBSERVATION ASSISTANT Work Phone: [facility] 02-25-2025 14:10-0400 Systolic blood pressure 140 mm[Hg] Magdalene Goodrich PATIENT OBSERVATION ASSISTANT Work Phone: [facility] 12-25-2024 13:52-0500 Body height 162.6 cm Andrew Church PATIENT OBSERVATION ASSISTANT Work Phone: [facility] 12-25-2024 13:52-0500 Body mass index (BMI) [Ratio] 23.69 kg/m2 Andrew Church PATIENT OBSERVATION ASSISTANT Work Phone: [facility] 12-25-2024 13:52-0500 Body temperature 98.29 [degF] Andrew Church PATIENT OBSERVATION ASSISTANT Work Phone: [facility] 12-25-2024 13:52-0500 Body weight 62.6 kg Andrew Church PATIENT OBSERVATION ASSISTANT Work Phone: [facility] 12-25-2024 13:52-0500 Diastolic blood pressure 80 mm[Hg] Andrew Church PATIENT OBSERVATION ASSISTANT Work Phone: [facility] 12-25-2024 13:52-0500 Heart rate 74 /min Andrew Church PATIENT OBSERVATION ASSISTANT Work Phone: [facility] 12-25-2024 13:52-0500 Respiratory rate 16 /min Andrew Church PATIENT OBSERVATION ASSISTANT Work Phone: [facility] 12-25-2024 13:52-0500 SaO2% (BldA) [Mass fraction] 94 % Andrew Church PATIENT OBSERVATION ASSISTANT Work Phone: [facility] 12-25-2024 13:52-0500 Systolic blood pressure 136 mm[Hg] Andrew Church PATIENT OBSERVATION ASSISTANT Work Phone: [facility] 09-23-2024 14:23-0500 Body height 162.6 cm Andrew Church PATIENT OBSERVATION ASSISTANT Work Phone: [facility] 09-23-2024 14:23-0500 Body mass index (BMI) [Ratio] 24.2 kg/m2 Andrew Church PATIENT OBSERVATION ASSISTANT Work Phone: [facility] 09-23-2024 14:23-0500 Body temperature 96.6 [degF] Andrew Church PATIENT OBSERVATION ASSISTANT Work Phone: [facility] 09-23-2024 14:23-0500 Body weight 63.96 kg Andrew Church PATIENT OBSERVATION ASSISTANT Work Phone: [facility] 09-23-2024 14:23-0500 Diastolic blood pressure 62 mm[Hg] Andrew Church PATIENT OBSERVATION ASSISTANT Work Phone: [facility] 09-23-2024 14:23-0500 Heart rate 77 /min Andrew Church PATIENT OBSERVATION ASSISTANT Work Phone: [facility] 09-23-2024 14:23-0500 Respiratory rate 20 /min Andrew Church PATIENT OBSERVATION ASSISTANT Work Phone: [facility] 09-23-2024 14:23-0500 SaO2% (BldA) [Mass fraction] 94 % Andrew Church PATIENT OBSERVATION ASSISTANT Work Phone: [facility] 09-23-2024 14:23-0500 Systolic blood pressure 138 mm[Hg] Andrew Church PATIENT OBSERVATION ASSISTANT Work Phone: [facility] 07-24-2024 16:15-0400 Body height 162.6 cm Andrew Church PATIENT OBSERVATION ASSISTANT Work Phone: [facility] 07-24-2024 16:15-0400 Body mass index (BMI) [Ratio] 24.37 kg/m2 Andrew Church PATIENT OBSERVATION ASSISTANT Work Phone: [facility] 07-24-2024 16:15-0400 Body temperature 97.7 [degF] Andrew Church PATIENT OBSERVATION ASSISTANT Work Phone: [facility] 07-24-2024 16:15-0400 Body weight 64.41 kg Andrew Church PATIENT OBSERVATION ASSISTANT Work Phone: [facility] 07-24-2024 16:15-0400 Diastolic blood pressure 80 mm[Hg] Andrew Church PATIENT OBSERVATION ASSISTANT Work Phone: [facility] 07-24-2024 16:15-0400 Heart rate 63 /min Andrew Church PATIENT OBSERVATION ASSISTANT Work Phone: [facility] Comment on above: 97% O2 07-24-2024 16:15-0400 Systolic blood pressure 130 mm[Hg] Andrew Church PATIENT OBSERVATION ASSISTANT Work Phone: [facility] 02-13-2024 11:27-0400 Body height 160.02 cm [facility] 02-13-2024 11:27-0400 Body mass index (BMI) [Ratio] 22.4 kg/m2 [facility] 02-13-2024 11:27-0400 Body weight 57.6 kg [facility] 02-13-2024 11:27-0400 Diastolic blood pressure 53 mm[Hg] [facility] 02-13-2024 11:27-0400 Heart rate 60 /min [facility] 02-13-2024 11:27-0400 Systolic blood pressure 89 mm[Hg] [facility] 08-14-2023 15:00-0400 Body height 160.02 cm Robert Schwartz Other [employer] Other 08-14-2023 15:00-0400 Body mass index (BMI) [Ratio] 24.37 kg/m2 Robert Schwartz Other [employer] [facility] [employer] Other 08-14-2023 15:00-0400 Body weight 62.42 kg Robert Schwartz Other [employer] [facility] [employer] Other 08-14-2023 15:00-0400 Diastolic blood pressure 69 mm[Hg] Robert Schwartz Other [employer] [facility] [employer] Other 08-14-2023 15:00-0400 Systolic blood pressure 107 mm[Hg] Robert Schwartz Other [employer] [facility] [employer] Other 05-16-2023 14:00-0400 Body height 160.02 cm Robert Schwartz Other [employer] [facility] [employer] Other 05-16-2023 14:00-0400 Body mass index (BMI) [Ratio] 24.8 kg/m2 Robert Schwartz Other [employer] [facility] [employer] Other 05-16-2023 14:00-0400 Body weight 63.5 kg Robert Schwartz Other [employer] [facility] [employer] Other 05-16-2023 14:00-0400 Diastolic blood pressure 65 mm[Hg] Robert Schwartz Other [employer] [facility] [employer] Other 05-16-2023 14:00-0400 Systolic blood pressure 119 mm[Hg] Robert Schwartz Other [employer] [facility] [employer] Other 02-07-2023 16:00-0400 Body height 160.02 cm Robert Schwartz Other [employer] [facility] [employer] Other 02-07-2023 16:00-0400 Body mass index (BMI) [Ratio] 25.33 kg/m2 Robert Schwartz Other [employer] [facility] [employer] Other 02-07-2023 16:00-0400 Body weight 64.86 kg Robert Schwartz Other [employer] [facility] [employer] Other 02-07-2023 16:00-0400 Diastolic blood pressure 82 mm[Hg] Robert Schwartz Other [employer] [facility] [employer] Other 02-07-2023 16:00-0400 SaO2% (BldA) [Mass fraction] 97 % Robert Schwartz Other [employer] [facility] [employer] Other 02-07-2023 16:00-0400 Systolic blood pressure 124 mm[Hg] Robert Schwartz Other [employer] [facility] [employer] Other Encounters Encounter Date Encounter Type Care Provider Facility Start: 08-07-2025 End: 08-07-2025 ambulatory Magdalene Goodrich NP-C Work Phone: [facility] Work Phone: Start: 08-07-2025 End: 08-07-2025 Patient encounter procedure Magdalene Goodrich NP-C -[facility] Work Phone: Start: 07-16-2025 Patient encounter status Magdalene Goodrich NP-C Work Phone: [facility] Start: 07-06-2025 End: 07-06-2025 Refill Magdalene Goodrich NP Work Phone: [facility] Comment on above: Convulsions, unspeci fied convulsion type (HCC) Start: 06-10-2025 End: 06-10-2025 Bamboo flowsheet Magdalene Goodrich PATIENT OBSERVATION ASSISTANT Work Phone: [facility] Start: 06-10-2025 End: 06-10-2025 Bamboo flowsheet Magdalene Joleen PATIENT OBSERVATION ASSISTANT Work Phone: [facility] Start: 06-10-2025 End: 06-10-2025 ambulatory MAGDALENE JOLEEN Not Available Start: 06-10-2025 End: 06-10-2025 Office outpatient visit 25 minutes Magdalene Goodrich PATIENT OBSERVATION ASSISTANT Work Phone: [facility] Comment on above: Essential (primary) hypertension (Primary Dx); Other chronic pain; Fibromyalgia, primary; Type 2 diabetes mellitus with stage 3a chronic kidney disease, without long-term current use of insulin (HCC); Nicotine dependence, cigarettes, uncomplicated; FUENTES (generalized anxiety disorder) ; Restless leg syndrome; Lumbar back pain Start: 05-30-2025 End: 05-30-2025 Clinisync Result Encounter Generic External Data Provider [facility] External Department Unsolicited Start: 05-30-2025 End: 05-30-2025 Clinisync Result Encounter Generic External Data Provider [facility] External Department Unsolicited Start: 05-17-2025 End: 05-18-2025 Refill Magdalene Joleen PATIENT OBSERVATION ASSISTANT Work Phone: [facility] Comment on above: Restless leg syndrom e Start: 05-12-2025 End: 05-12-2025 Refill Magdalene Joleen PATIENT OBSERVATION ASSISTANT Work Phone: [facility] Comment on above: Lumbar back pain; FUENTES (generalized anxiety disorder) Start: 04-10-2025 End: 04-10-2025 Office outpatient visit 25 minutes Magdalenepresley Goodrich PATIENT OBSERVATION ASSISTANT Work Phone: [facility] Comment on above: Type 2 diabetes jennifer itus with stage 3a chronic kidney disease, without long-term current use of insulin (HCC) (CMS/HCC) (Primary Dx); Essential (primary) hypertension (CMS/HCC); FUENTES (generalized anxiety disorder) (CMS/HCC); Lumbar back pain; Current episode of major depressive disorder without prior episode, unspecified depression episode severity (CMS/HCC); Nicotine dependence, cigarettes, uncomplicated; UTI symptoms; Convulsions, unspecified convulsion type ([facility]) Start: 04-10-2025 End: 04-10-2025 ambulatory MAGDALENE JOLEEN Not Available Start: 03-13-2025 End: 03-13-2025 Refill Magdalene Goodrich PATIENT OBSERVATION ASSISTANT Work Phone: [facility] Comment on above: Lumbar back pain Start: 03-11-2025 End: 03-11-2025 Clinisync Result Encounter Generic External Data Provider [facility] External Department Unsolicited Start: 03-11-2025 End: 03-11-2025 Clinisync Result Encounter Generic External Data Provider [facility] External Department Unsolicited Start: 03-06-2025 End: 03-06-2025 Refill Ethan Bonilla MD Work Phone: [facility] Comment on above: Cerebrovascular acci dent (CVA), unspecified mechanism ([facility]) Start: 02-25-2025 End: 02-25-2025 Bamboo flowsheet Magdalene Goodrich PATIENT OBSERVATION ASSISTANT Work Phone: [facility] Start: 02-25-2025 End: 02-25-2025 Bamboo flowsheet Magdalenepresley Goodrich PATIENT OBSERVATION ASSISTANT Work Phone: [facility] Start: 02-25-2025 End: 02-25-2025 Office outpatient visit 25 minutes Magdalene Goodrich PATIENT OBSERVATION ASSISTANT Work Phone: [facility] Comment on above: Essential (primary) hypertension ([facility]) (Primary Dx); Type 2 diabetes mellitus with diabetic chronic kidney disease ([facility]); Essential (hemorrhagic) thrombocythemia; Seizure ([facility]); Restless leg syndrome; Age-related osteoporosis without current pathological fracture ([facility]); Fibromyalgia, primary; Anxiety; Current episode of major depressive disorder without prior episode, unspecified depression episode severity ([facility]); FUENTES (generalized anxiety disorder) ([facility]); Mixed hyperlipidemia ([facility]); Nicotine dependence, cigarettes, uncomplicated Start: 02-25-2025 End: 02-25-2025 ambulatory MAGDALENE AICHHOLZ Not Available Start: 02-24-2025 End: 02-25-2025 Refill Magdalene Aicjenniferholz PATIENT OBSERVATION ASSISTANT Work Phone: [facility] Comment on above: FUENTES (generalized anx iety disorder) (CMS/HCC); Restless leg syndrome Start: 02-19-2025 End: 02-19-2025 Refill Magdalene Aicjenniferholz PATIENT OBSERVATION ASSISTANT Work Phone: [facility] Comment on above: Restless leg syndrom e Start: 02-12-2025 End: 02-12-2025 Refill Magdalene Aichholz PATIENT OBSERVATION ASSISTANT Work Phone: [facility] Comment on above: Lumbar back pain Start: 01-13-2025 End: 01-13-2025 Refill Ethan Bonilla MD Work Phone: [facility] Comment on above: Hyperlipidemia, unsp ecified hyperlipidemia type (CMS/HCC); Lumbar back pain Start: 12-25-2024 End: 12-25-2024 Bamboo flowsheet Andrew Cheathamk PATIENT OBSERVATION ASSISTANT Work Phone: [facility] Start: 12-25-2024 End: 12-25-2024 Bamboo flowsheet Andrew Coytrick PATIENT OBSERVATION ASSISTANT Work Phone: [facility] Start: 12-25-2024 End: 12-25-2024 Office outpatient visit 15 minutes Andrew Church PATIENT OBSERVATION ASSISTANT Work Phone: [facility] Comment on above: FUENTES (generalized anx iety disorder) (CMS/HCC) (Primary Dx); Convulsions, unspecified convulsion type (CMS/HCC); Essential (primary) hypertension (CMS/HCC); Mixed hyperlipidemia (CMS/HCC); Prediabetes Start: 12-25-2024 End: 12-25-2024 ambulatory ANDREW CHURCH Not Available Start: 12-20-2024 End: 12-20-2024 Clinisync Result Encounter Andrew Church PATIENT OBSERVATION ASSISTANT Work Phone: [facility] External Department Unsolicited Start: 12-20-2024 End: 12-20-2024 Clinisync Result Encounter Andrew Barlowzpatrick PATIENT OBSERVATION ASSISTANT Work Phone: [facility] Department Unsolicited Start: 12-17-2024 End: 12-17-2024 Refill Dot Figueroa MA [facility] Comment on above: Lumbar back pain Start: 11-13-2024 End: 11-13-2024 Refill Andrew Church PATIENT OBSERVATION ASSISTANT Work Phone: [facility] Comment on above: Lumbar back pain; Cerebrovascular accident (CVA), unspecified mechanism (CMS/HCC) Start: 10-14-2024 End: 10-16-2024 Refill Dot Figueroa MA [facility] Comment on above: Lumbar back pain Start: 09-23-2024 End: 09-23-2024 Office outpatient visit 15 minutes Andrew Church PATIENT OBSERVATION ASSISTANT Work Phone: [facility] Comment on above: Prediabetes (Primary Dx); Essential (primary) hypertension (CMS/HCC); Mixed hyperlipidemia (CMS/HCC) Start: 09-23-2024 End: 09-23-2024 ambulatory ANDREW CHURCH Not Available Start: 09-23-2024 End: 09-23-2024 Bamboo flowsheet Andrew Coytrick PATIENT OBSERVATION ASSISTANT Work Phone: [facility] Start: 09-23-2024 End: 09-23-2024 Bamboo flowsheet Andrew Church PATIENT OBSERVATION ASSISTANT Work Phone: [facility] Start: 09-22-2024 ambulatory SAIRA CAMPBELL [facility] Start: 09-11-2024 End: 09-11-2024 Refill Dot Figueroa MA [facility] Comment on above: Lumbar back pain Start: 09-09-2024 End: 09-16-2024 Orders Only Andrew Coytrick PATIENT OBSERVATION ASSISTANT Work Phone: [facility] Comment on above: Type 2 diabetes jennifer itus with chronic kidney disease, without long-term current use of insulin, unspecified CKD stage (CMS/HCC) (Primary Dx) Start: 09-03-2024 End: 09-03-2024 Clinisync Result Encounter Andrew Church PATIENT OBSERVATION ASSISTANT Work Phone: [facility] External Department Unsolicited Start: 09-03-2024 End: 09-03-2024 Clinisync Result Encounter Andrew Church PATIENT OBSERVATION ASSISTANT Work Phone: [facility] Department Unsolicited Start: 09-03-2024 End: 09-03-2024 Refill Andrew Church PATIENT OBSERVATION ASSISTANT Work Phone: [facility] Comment on above: Restless leg syndrom e Start: 08-13-2024 End: 08-13-2024 Clinisync Result Encounter Generic External Data Provider [facility] External Department Unsolicited Start: 08-13-2024 End: 08-13-2024 Clinisync Result Encounter Generic External Data Provider [facility] External Department Unsolicited Start: 08-06-2024 End: 08-12-2024 Refill Andrew Church PATIENT OBSERVATION ASSISTANT Work Phone: [facility] Comment on above: Lumbar back pain (Pr imary Dx); Hyperlipidemia, unspecified hyperlipidemia type (CMS/HCC); Essential (primary) hypertension (CMS/HCC); Restless leg syndrome; Cerebrovascular accident (CVA), unspecified mechanism (CMS/HCC) Start: 07-24-2024 End: 07-24-2024 Initial preventive medicine new patient 63yrs&> Andrew Church PATIENT OBSERVATION ASSISTANT Work Phone: [facility] Comment on above: Essential (primary) hypertension (CMS/HCC) (Primary Dx); Mixed hyperlipidemia (CMS/HCC); Nicotine dependence, cigarettes, uncomplicated; Cerebrovascular accident (CVA), unspecified mechanism (CMS/HCC) Start: 07-24-2024 End: 07-24-2024 ambulatory ANDREW CHURCH Not Available Start: 07-24-2024 End: 07-24-2024 Bamboo flowsheet Andrew Church PATIENT OBSERVATION ASSISTANT Work Phone: [facility] Start: 07-24-2024 End: 07-24-2024 Bamboo flowsheet Andrew Church PATIENT OBSERVATION ASSISTANT Work Phone: [facility] Start: 07-24-2024 Patient encounter status Janice any Church PATIENT OBSERVATION ASSISTANT Work Phone: [facility] Start: 07-23-2024 Patient encounter status Janice any Church PATIENT OBSERVATION ASSISTANT Work Phone: [facility] Work Phone: Start: 04-02-2024 End: 04-02-2024 ambulatory [facility] Start: 03-26-2024 ambulatory Neto Hooper Facility:[facility] Start: 03-25-2024 End: 03-25-2024 Telephone encounter [facility] Start: 03-19-2024 End: 03-19-2024 ambulatory Robert Schwartz Facility:[facility] Start: 02-13-2024 End: 02-13-2024 ambulatory [facility] Work Phone: Start: 02-13-2024 End: 02-13-2024 [facility] Work Phone: Start: 02-12-2024 ambulatory [facility] Start: 02-12-2024 End: 03-18-2024 Telephone encounter [facility] Start: 02-12-2024 ambulatory SAIRA Valente SHANNAN [facility] Start: 02-09-2024 Non-patient / Non-visit [facility] Work Phone: Start: 02-08-2024 End: 02-11-2024 Emergency department patient visit SAIRA Valente SHANNAN [facility] Start: 02-08-2024 Non-patient / Non-visit [facility] Work Phone: Start: 01-15-2024 Non-patient / [facility]-visit [facility] Work Phone: Start: 12-22-2023 Non-patient / Non-visit [facility] Work Phone: Start: 10-24-2023 End: 10-24-2023 ambulatory Robert Efren Other [employer] Other Start: 10-24-2023 Telephone encounter Robert Efren [facility] Start: 09-22-2023 End: 09-22-2023 ambulatory Robert Schwartz Other [employer] Other Start: 09-22-2023 Telephone encounter Robert Schwartz [facility] Start: 08-23-2023 End: 08-23-2023 ambulatory Robert Schwartz Other [employer] Other Start: 08-23-2023 Telephone encounter Robert Schwartz [facility] Start: 08-14-2023 End: 08-14-2023 ambulatory Robert Schwartz Other [employer] Other Start: 08-14-2023 Office outpatient vi sit 15 minutes Robert Schwartz [facility] Start: 08-14-2023 Telephone encounter Robert Schwartz [facility] Start: 07-24-2023 End: 07-24-2023 ambulatory Robert Schwartz Other [employer] Other Start: 07-24-2023 Telephone encounter Robert Schwartz [facility] Start: 06-23-2023 End: 06-23-2023 ambulatory Robert Schwartz Other [employer] Other Start: 06-23-2023 Telephone encounter Robert Schwartz [facility] Start: 06-12-2023 End: 06-12-2023 ambulatory Robert Schwartz Other [employer] Other Start: 06-12-2023 Telephone encounter Robert Schwartz [facility] Start: 05-16-2023 End: 05-16-2023 ambulatory Robert Schwartz Other [employer] Other Start: 05-16-2023 Office outpatient vi sit 15 minutes Robert Schwartz [facility] Start: 02-24-2023 End: 02-24-2023 ambulatory Robert Schwartz Other [employer] Other Start: 02-24-2023 Telephone encounter Robert Schwartz [facility] Start: 02-13-2023 End: 02-13-2023 ambulatory [facility] Other [employer] Other Start: 02-13-2023 Telephone encounter Robert Schwartz [facility] Start: 02-09-2023 End: 02-10-[address] ROBERT SCHWARTZ Facility:[facility] Start: 02-07-2023 End: 02-07-2023 ambulatory Robert Schwartz Other [employer] Other Start: 02-07-2023 Office outpatient vi sit 25 minutes Robert Schwartz [facility] Start: 10-18-2022 End: 10-19-[address] ROBERT SCHWARTZ Facility:[facility] Start: 10-14-2022 Pre-procedure evalua tion check Robert Schwartz Other [employer] Other Start: 05-17-2022 End: 05-18-[address] ROBERT SCHWARTZ Facility:[facility] Start: 04-13-2022 End: 04-14-[address] ROBERT SCHWARTZ Facility:[facility] Procedures Date Procedure Procedure Detail Performing Clinician Start: 05-30-2025 ALL CBC WITH AUTO DIFF Generic External Data Provider Start: 04-10-2025 Urnls dip stick/tablet rgnt non-auto w/o micrscp Magdalene Goodrich PATIENT OBSERVATION ASSISTANT Work Phone: Start: 04-10-2025 Hemoglobin glycosylated a1c Magdalene Goodrich PATIENT OBSERVATION ASSISTANT Work Phone: Start: 03-11-2025 ALL CBC WITH AUTO DIFF Generic External Data Provider Start: 12-20-2024 ALL CBC WITH AUTO DIFF Andrew Fitzpatr ick PATIENT OBSERVATION ASSISTANT Work Phone: Start: 09-03-2024 ALL CBC WITH AUTO DIFF Andrew Fitzpatr ick PATIENT OBSERVATION ASSISTANT Work Phone: Start: 08-13-2024 ALL CBC WITH AUTO DIFF Generic External Data Provider Start: 07-24-2024 End: 02-25-2025 H/O: artificial joint Presence of right artificial shoulder joint Andrew Church PATIENT OBSERVATION ASSISTANT Work Phone: Start: 02-08-2024 Bacteria identified in Urine by Culture Start: 11-22-2018 Screening for malignant neoplasm of cervix Robert Efren Other Plan of Treatment Date Care Activity Detail Author Start: 12-10-2026 Glaucoma screening Diabetes: R etinopathy Screening [facility] Start: 03-19-2026 Glaucoma screening Diabetes: R etinopathy Screening [facility] Start: 12-20-2025 Urine screening for protein Diabetes: Urine Protein Screening [facility] Start: 07-24-2025 Medicare Annual Well ness (AWV) Medicare Annual Wellness (AWV) [facility] Start: 07-16-2025 End: 07-16-2025 Patient encounter procedure [facility] Start: 07-11-2025 Hemoglobin A1c measurement Diabetes: Hemoglobin A1C [facility] Start: 07-07-2025 Influenza vaccination Influenza Vacc ine (#1) [facility] Start: 06-10-2025 End: 06-10-2025 Patient encounter procedure 06/10/2025 1:00 PM EDT Office Visit [facility] [address] [place] [phone] Magdalene Goodrich NP [address] [place] [phone] [facility] Start: 04-10-2025 End: 04-10-2025 Patient encounter procedure 04/10/2025 2:00 PM EDT Office Visit [facility] [address] [place], [place] [phone] Magdalene Goodrich NP [address] [place] [place] [phone] [facility] Start: 02-25-2025 End: 02-25-2025 Patient encounter procedure [facility] Comment on above: Seizure (CMS/HCC) (P rimary Dx); Type 2 diabetes mellitus with diabetic chronic kidney disease (CMS/HCC); Essential (hemorrhagic) thrombocythemia; Restless leg syndrome; Essential (primary) hypertension (CMS/HCC); Age-related osteoporosis without current pathological fracture (CMS/HCC); Fibromyalgia, primary; Anxiety; Current episode of major depressive disorder without prior episode, unspecified depression episode severity (CMS/HCC); FUENTES (generalized anxiety disorder) ([facility]/HCC); Mixed hyperlipidemia ([facility]); Nicotine dependence, cigarettes, uncomplicated Start: 12-25-2024 End: 12-25-2024 Patient encounter procedure 12/25/2024 2:00 PM EST Office Visit [facility] [address] [phone] Andrew Church NP [address] [place] [phone] Arrived [facility] Comment on above: Arrived Start: 12-24-2024 End: 09-23-2025 CBC W Auto Differential panel - Blood CBC and differential Lab Routine Prediabetes Expected: 12/24/2024 (Approximate), Expires: 09/23/2025 [facility] Comment on above: Expected: 12/24/2024 (Approximate), Expires: 09/23/2025 Start: 12-24-2024 End: 09-23-2025 Comprehensive metabolic 2000 panel - Serum or Plasma Comprehensive metabolic panel Lab Routine Prediabetes Expected: 12/24/2024 (Approximate), Expires: 09/23/2025 [facility] Comment on above: Expected: 12/24/2024 (Approximate), Expires: 09/23/2025 Start: 12-24-2024 End: 09-23-2025 Hemoglobin A1c/Hemoglobin.total in Blood Hemoglobin A1c Lab Routine Prediabetes Expected: 12/24/2024 (Approximate), Expires: 09/23/2025 [facility] Comment on above: Expected: 12/24/2024 (Approximate), Expires: 09/23/2025 Start: 12-23-2024 End: 12-23-2024 Patient encounter procedure 12/23/2024 2:00 PM EST Office Visit [facility] [address] [phone] Andrew Church, MICHELLE [address] [place] [phone] [facility] Start: 09-23-2024 End: 09-23-2024 Patient encounter procedure [facility] Comment on above: Arrived Start: 08-20-2024 End: 08-20-2024 Patient encounter procedure 08/20/2024 2:40 PM EDT Office Visit [facility] [address] [place] [phone] Ese Brewer NP [address] [place], [place] [phone] [facility] Start: 07-24-2024 End: 07-24-2024 Patient encounter procedure 07/24/2024 4:30 PM EDT Office Visit [facility] [address], [place] [phone] Andrew Church NP [address] [place] [phone] Arrived [facility] Comment on above: Arrived Start: 07-24-2024 End: 07-23-2025 CBC W Auto Differential panel - Blood CBC and differential Lab Routine Essential (primary) hypertension (CMS/HCC) Mixed hyperlipidemia (CMS/HCC) Expected: 07/24/2024 (Approximate), Expires: 07/23/2025 [facility] Comment on above: Expected: 07/24/2024 (Approximate), Expires: 07/23/2025 Start: 07-24-2024 End: 07-23-2025 Comprehensive metabolic 2000 panel - Serum or Plasma Comprehensive metabolic panel Lab Routine Essential (primary) hypertension (CMS/HCC) Mixed hyperlipidemia (CMS/HCC) Expected: 07/24/2024 (Approximate), Expires: 07/23/2025 [facility] Comment on above: Expected: 07/24/2024 (Approximate), Expires: 07/23/2025 Start: 07-24-2024 End: 07-23-2025 Hemoglobin A1c/Hemoglobin.total in Blood Hemoglobin A1c Lab Routine Essential (primary) hypertension (CMS/HCC) Mixed hyperlipidemia (CMS/HCC) Cerebrovascular accident (CVA), unspecified mechanism (CMS/HCC) Expected: 07/24/2024 (Approximate), Expires: 07/23/2025 [facility] Comment on above: Expected: 07/24/2024 (Approximate), Expires: 07/23/2025 Start: 07-24-2024 End: 07-23-2025 Lipid 1996 panel - Serum or Plasma Lipid panel Lab Routine Mixed hyperlipidemia (CMS/HCC) Expected: 07/24/2024 (Approximate), Expires: 07/23/2025 [facility] Comment on above: Expected: 07/24/2024 (Approximate), Expires: 07/23/2025 Start: 07-24-2024 End: 07-23-2025 TSH W/REFLEX TO FT4 TSH W/REFLEX TO FT4 Lab Routine Essential (primary) hypertension (CMS/HCC) Expected: 07/24/2024 (Approximate), Expires: 07/23/2025 [facility] Work Phone: Comment on above: Expected: 07/24/2024 (Approximate), Expires: 07/23/2025 Start: 07-07-2024 Influenza vaccination [facility] Start: 02-13-2024 Patient referral [facility] Work Phone: Start: 04-10-2022 Adult BMI Screening Adult BMI Screen ing [facility] Start: 11-12-2014 Pneumococcal Vaccine : 65+ Years (2 of 2 - PCV) Pneumococcal Vaccine: 65+ Years (2 of 2 - PCV) [facility] Start: 2013 Fall Risk Screening Fall Risk Screen ing [facility] Start: 1998 Administration of varicella zoster vaccine Zoster (Shingles) Vaccine (1 of 2) [facility] Start: 1967 DTaP,Tdap and Td Vaccines (1 - Tdap) DTaP,Tdap and Td Vaccines (1 - Tdap) [facility] Start: 1967 Urine screening for protein Diabetes: Urine Protein Screening [facility] Start: 1960 Depression Screening Depression Scre ening [facility] Start: 1960 Tobacco Screening Tobacco Screening [facility] Start: 1958 Glaucoma screening Diabetes: R etinopathy Screening [facility] Start: 1948 Hemoglobin A1c measurement Diabetes: Hemoglobin A1C [facility] Start: 1948 Medicare Annual Well ness Visit Medicare Annual Wellness Visit [facility] Microalbumin/Creatin ine panel in random Urine Microalbumin / creatinine urine ratio Lab Routine Prediabetes Ordered: 09/23/2024 [facility] Work Phone: Comment on above: Ordered: 09/23/2024 Patient referral [facility] Work Phone: US Lower extremity v ein - left [facility] XR Hip - left 2 Views [facility] Immunizations Immunization Date Immunization Notes Care Provider Raymond tom 08-19-2024 influenza, seasonal, injectable Andrew Church PATIENT OBSERVATION ASSISTANT Work Phone: [facility] 08-19-2024 influenza virus vaccine, unspecified formulation Magdalene Goodrich PATIENT OBSERVATION ASSISTANT Work Phone: [facility] 07-17-2023 Influenza, Seasonal, Quadrivalent, Adjuvanted Magdalene Joleen PATIENT OBSERVATION ASSISTANT Work Phone: [facility] 07-17-2023 influenza virus vaccine, unspecified formulation Alena Palacios RN [facility] 08-10-2022 influenza virus vaccine, split virus (incl. purified surface antigen) Robert Efren Other [employer] Other 08-10-2022 influenza virus vaccine, unspecified formulation [facility] 08-10-2022 Influenza, High-dose Seasonal, Quadrivalent, Preservative Free Magdalene Aichholz PATIENT OBSERVATION ASSISTANT Work Phone: [facility] 08-11-2021 Influenza, High-dose Seasonal, Quadrivalent, Preservative Free Magdalene Aichholz PATIENT OBSERVATION ASSISTANT Work Phone: [facility] 07-20-2020 influenza, high dose seasonal, preservative-free Magdalene Aichholz PATIENT OBSERVATION ASSISTANT Work Phone: [facility] 07-16-2020 unknown vaccine or immune globulin Magdalene Aichholz PATIENT OBSERVATION ASSISTANT Work Phone: [facility] 07-25-2019 Seasonal trivalent influenza vaccine, adjuvanted, preservative free Magdalene Aichholz PATIENT OBSERVATION ASSISTANT Work Phone: [facility] 07-13-2018 influenza, high dose seasonal, preservative-free Magdalene Aichholz PATIENT OBSERVATION ASSISTANT Work Phone: [facility] 11-12-2013 pneumococcal polysaccharide vaccine, 23 valent Magdalene Aichholz PATIENT OBSERVATION ASSISTANT Work Phone: [facility] 10-23-2009 novel [id number], preservative-free, injectable Magdalene Aichholz PATIENT OBSERVATION ASSISTANT Work Phone: [facility] 04-06-2008 pneumococcal polysaccharide vaccine, 23 valent Magdalene Aichholz PATIENT OBSERVATION ASSISTANT Work Phone: [facility] Payers Date Payer Category Payer Medicare (Managed Care) [employer] [id number] 2019 Medicare [id number] 2017 Medicaid [id number] 1959 Medicaid [id number] 1959 Medicare [id number] [id number] 1948 Unknown [id number] 2.840.1.197321.3.579.2. 593 1948 Unknown [id number] 2.840.1.480436.3.579.2. 593 1948 Unknown [id number] 2.840.1.424747.3.579.2. 593 1948 Unknown [id number] 2.16840.1.530735.3.579.2. 593 1948 Unknown [id number] 2.16840.1.209688.3.579.2. 1286 1948 Unknown [id number] 2.16840.1.062425.3.579.2. 1286 1948 Unknown [id number] 2.16.840.1.629319.3.579.2. 128 1948 Unknown [id number] 2.16.840.1.342363.3.579.2. 1286 1948 Unknown [id number] 2.16.840.1.574450.3.579.2. 1259 1948 Unknown [id number] 2.16840.1.497577.3.579.2. 1259 1948 Unknown [id number] 2.16.840.1.831747.3.579.2. 1259 1948 Unknown [id number] 2.16.840.1.276331.3.579.2. 1259 1948 Unknown [id number] 2.16.840.1.718301.3.579.2. 1259 1948 Unknown [id number] [id number]. 1259 Social History Date Type Detail Facility Unknown if ever smoked [employer] Other Start: 07-24-2024 End: 06-10-2025 Sex Assigned At [place] Other Start: 1950 Sex Assigned At Female [facility] Start: 04-06-2021 End: 07-24-2024 Tobacco smoking status [email or web address] Smokes tobacco daily [facility] History of tobacco use Cigarette Smoker P [facility] History of tobacco use Passive smoker [facility] Start: 07-24-2024 End: 06-10-2025 Alcoholic beverage intake Lifetime non-drinker (finding) [facility] Start: 07-24-2024 End: 06-10-2025 History of Social function [facility] Start: 1950 Sex assigned at Not on file P [facility] Start: 04-06-2021 Tobacco use and exposure Smokeless tobacco non-user [facility] Start: 04-06-2021 Alcoholic beverage intake Current non-drinker of alcohol (finding) [facility] Childcare Unknown [facility] Tobacco smoking stat us [facility] [[email or web address] Unknown if ever smoked [facility] Work Phone: Sex Female (finding) [facility] Clinical Notes 02-07-2023 to 08-07-2025 Magdalene Goodrich NP - 06/10/2025 1:00 PM Karolina Goodrich NP - 06/10/2025 6:46 AM Karolina Goodrich, PATIENT OBSERVATION ASSISTANT - 06/10/2025 6:45 AM Karolina Goodrich, PATIENT OBSERVATION ASSISTANT - 06/10/2025 6:44 AM EDTPatient Instructions Note Date & Type Note Facility 08-07-2025 Hospital Discharge instructions Ambulatory OrdersAMB POC Ur Dipstick Time Frame: 08/07/25, Location: Determined By Patient [facility] Work Phone: 06-10-2025 History of Present illness Narrative Images from the original note were not included. Lesly Steve is a 74 y.o. female presents with chief complaint of Diabetes HPI: Spinal stenosis: chronic back pain, 5/10, no pain meds it would worsen to point unable to walk or doing any ADL's , right LE radiculopathy Worse with lifting, twisting, carrying things, as well as prolonged standing No NT no cauda equina sxs Diabetes She presents for her follow-up diabetic visit. She has type 2 diabetes mellitus. Her disease course has been stable. Hypoglycemia symptoms include nervousness/anxiousness. Pertinent negatives for hypoglycemia include no dizziness, headaches, seizures or tremors. Pertinent negatives for diabetes include no chest pain, no polydipsia, no polyphagia and no polyuria. There are no hypoglycemic complications. Symptoms are stable. Diabetic complications include peripheral neuropathy. Risk factors for coronary artery disease include diabetes mellitus, dyslipidemia and sedentary lifestyle. Current diabetic treatment includes oral agent (dual therapy). She does not see a manager technical services.Eye exam is not current. SUBJECTIVE: MEDICATIONS: Current Outpatient Medications Medication Instructions ALPRAZolam (XANAX) 0.5 mg, Oral, 2 times daily PRN aspirin 325 mg, Oral, Daily atorvastatin (LIPITOR) 80 mg, Oral, Daily dapagliflozin (FARXIGA) 5 mg, Oral, Daily gabapentin (NEURONTIN) 300 mg, Oral, Daily, Take 1 capsule (300 mg) by mouth Daily hydroxyurea (HYDREA) 500 mg, Daily latanoprost (Xalatan) 0.005 % ophthalmic solution INSTILL 1 DROP IN EACH EYE EVERY DAY AT BEDTIME levETIRAcetam (KEPPRA) 500 mg, Oral, 2 times daily lisinopril 10 mg, Oral, Daily metoprolol tartrate (Lopressor) 25 MG tablet TAKE 1 TABLET (25 MG) BY MOUTH IN THE MORNING AND BEFORE BEDTIME oxyCODONE-acetaminophen (Percocet) 7.5-325 MG tablet 1 tablet, Oral, 2 times daily rOPINIRole (REQUIP) 0.5 mg, Oral, Daily ALLERGIES: Allergies Allergen Reactions Nickel Unknown Penicillin G Benzathine Phenytoin Unknown Zinc Acetate Penicillins Rash and Unknown Phenobarbital Rash and Unknown Phenytoin Sodium Extended Rash REVIEW OF SYMPTOMS: Review of Systems Constitutional: Negative for appetite change, chills and fever. HENT: Negative for congestion, ear pain and sore throat. Eyes: Negative for pain, discharge, redness and visual disturbance. Respiratory: Negative for cough, shortness of breath and wheezing. Cardiovascular: Negative for chest pain, palpitations and leg swelling. Gastrointestinal: Negative for abdominal pain, blood in stool, constipation, diarrhea, nausea and vomiting. Genitourinary: Negative for difficulty urinating, dysuria and frequency. Musculoskeletal: Positive for arthralgias. Negative for back pain, joint swelling and myalgias. Skin: Negative for rash and wound. Neurological: Negative for dizziness, tremors, seizures, syncope and headaches. Psychiatric/Behavioral: Negative for behavioral problems, self-injury and suicidal ideas. The patient is nervous/anxious. Hematological: Does not bruise/bleed easily. Endocrine: Negative for polydipsia, polyphagia and polyuria. Allergic/Immunologic: Negative for environmental allergies and food allergies. PAST MEDICAL HISTORY Past Medical History: Diagnosis Date Age-related osteoporosis without current pathological fracture B12 deficiency Current episode of major depressive disorder without prior episode Epilepsy, unspecified, not intractable, without status epilepticus (HCC) 09/03/2018 Essential (primary) hypertension FUENTES (generalized anxiety disorder) Hyperlipidemia Insomnia, unspecified Left carpal tunnel syndrome Migraine Nicotine dependence, cigarettes, uncomplicated Restless leg syndrome Stroke ([facility]) Past Surgical History: Procedure Laterality Date BILATERAL SALPINGOOPHORECTOMY CATARACT EXTRACTION HIP ARTHROSCOPY W/ LABRAL REPAIR TOTAL ABDOMINAL HYSTERECTOMY family history includes Cancer in her mother; Diabetes in her maternal grandmother and mother; Heart attack in her brother; Hypertension in her brother; No Known Problems in her father. OBJECTIVE: Visit Vitals BP 144/88 (BP Location: Left arm, Patient Position: Sitting, BP Cuff Size: Adult long) Pulse 56 Temp 98.1 F (Temporal) Resp 18 Wt 140 lb SpO2 95% BMI 24.03 kg/m Smoking Status Every Day BSA 1.69 m Physical Exam Vitals and nursing note reviewed. Constitutional: General: She is not in acute distress. Appearance: Normal appearance. HENT: Head: Normocephalic and atraumatic. Right Ear: External ear normal. Left Ear: External ear normal. Nose: Nose normal. Mouth/Throat: Mouth: Mucous membranes are moist. Eyes: Extraocular Movements: Extraocular movements intact. Conjunctiva/sclera: Conjunctivae normal. Neck: Vascular: No carotid bruit. Cardiovascular: Rate and Rhythm: Normal rate and regular rhythm. Pulses: Normal pulses. Heart sounds: Normal heart sounds. Pulmonary: Effort: Pulmonary effort is normal. Breath sounds: Normal breath sounds. Abdominal: General: Bowel sounds are normal. There is no distension. Palpations: Abdomen is soft. There is no mass. Tenderness: There is no abdominal tenderness. Musculoskeletal: Cervical back: Normal range of motion and neck supple. Right lower leg: No edema. Left lower leg: No edema. Comments: -SLR X2, MMT 4.5/5 bilat LE Skin: General: Skin is warm and dry. Capillary Refill: Capillary refill takes 2 to 3 seconds. Findings: No rash. Neurological: General: No focal deficit present. Mental Status: She is alert and oriented to person, place, and time. Psychiatric: Mood and Affect: Mood normal. Behavior: Behavior normal. Thought Content: Thought content normal. Judgment: Judgment normal. ASSESSMENT AND PLAN: Follow up in about 4 weeks (around 07/08/2025) for Recheck. Problem List Items Addressed This Visit Essential (primary) hypertension - Primary (Chronic) Please check blood pressure daily and record DASH diet Limit caffeine Take medication as directed Contact office if chest pain, pressure, dizziness, shortness of breath, swelling legs Recommend slow position changes Current med: b raúl Add lisinopril Log book, rx for bp monitor Relevant Medications lisinopril 10 MG tablet FUENTES (generalized anxiety disorder) Current meds: xanax, only takes PRN OARRS reviewed Med agreement signed 02/24/25 Relevant Medications ALPRAZolam (Xanax) 0.5 MG tablet Fibromyalgia, primary (Chronic) gabapentin Lumbar back pain Relevant Medications oxyCODONE-acetaminophen (Percocet) 7.5-325 MG tablet Nicotine dependence, cigarettes, uncomplicated The patient has been advised of the risks of continued smoking: stroke, ME, all forms of cancer, lung disease, and . Options for quitting smoking include: cold turkey, hypnosis, acupuncture, nicotine replacement meds (gum, lozenges, and patches), Buproprion, and Varenicline. At this time pt is encouraged to evaluate their goals for wanting to quit smoking, and reach out to provider when ready to start this process Other chronic pain Is taking oxycodone 7.5mg BID prn for chronic pain Restless leg syndrome Relevant Medications rOPINIRole (Requip) 0.5 MG tablet Type 2 diabetes mellitus with diabetic chronic kidney disease (HCC) Check blood sugars daily, notify if <70 or >200. Take medications (pills or insulin) as directed. Monitor for s/s of hypoglycemia (sweaty, dizziness, nausea, vomiting, or shakiness). Watch for increase in thirst, urination, or appetite. Inspect feet frequently monitoring for open wounds , and also recommend yearly eye exam. Pt should attempt to remain as physically active as chronic conditions allow, as well as trying to follow a diet low in carbohydrates, and simple sugars. Current meds: asa, statin, farxiga, A1c: 5.8% 04/10/25 Associated Problem(s): Other chronic pain Is taking oxycodone 7.5mg BID prn for chronic pain Associated Problem(s): FUENTES (generalized anxiety disorder) Current meds: xanax, only takes PRN OARRS reviewed Med agreement signed 02/24/25 Associated Problem(s): Nicotine dependence, cigarettes, uncomplicated The patient has been advised of the risks of continued smoking: stroke, ME, all forms of cancer, lung disease, and . Options for quitting smoking include: cold turkey, hypnosis, acupuncture, nicotine replacement meds (gum, lozenges, and patches), Buproprion, and Varenicline. At this time pt is encouraged to evaluate their goals for wanting to quit smoking, and reach out to provider when ready to start this process Associated Problem(s): Type 2 diabetes mellitus with diabetic chronic kidney disease (HCC) Check blood sugars daily, notify if <70 or >200. Take medications (pills or insulin) as directed. Monitor for s/s of hypoglycemia (sweaty, dizziness, nausea, vomiting, or shakiness). Watch for increase in thirst, urination, or appetite. Inspect feet frequently monitoring for open wounds , and also recommend yearly eye exam. Pt should attempt to remain as physically active as chronic conditions allow, as well as trying to follow a diet low in carbohydrates, and simple sugars. Current meds: asa, statin, farxiga, A1c: 5.8% 04/10/25 Associated Problem(s): Fibromyalgia, primary gabapentin Associated Problem(s): Essential (primary) hypertension Please check blood pressure daily and record DASH diet Limit caffeine Take medication as directed Contact office if chest pain, pressure, dizziness, shortness of breath, swelling legs Recommend slow position changes Current med: b raúl Add lisinopril Log book, rx for bp monitor documented in this encounter [facility] 06-10-2025 Instructions Magdalene Goodrich NP - 06/10/2025 1:00 PM EDT Add lisinopril 10mg daily in addition to metoprolol 25mg bid Check blood pressure once a day and record Come back in 1 month and bring the log of readings and blood pressure machine documented in this encounter [facility] 04-10-2025 History of Present illness Narrative Associated Problem(s): UTI symptoms Will treat with macrobid Fu if not better Lesly Steve is a 74 y.o. female presents with chief complaint of Diabetes HPI: Chronic back pain: does take opioids and gabapentin, no significant changes in pain levels or pain patterns Diabetes She presents for her follow-up diabetic visit. She has type 2 diabetes mellitus. Her disease course has been stable. There are no hypoglycemic associated symptoms. Pertinent negatives for hypoglycemia include no dizziness, headaches, nervousness/anxiousness, seizures or tremors. Associated symptoms include polyuria. Pertinent negatives for diabetes include no chest pain, no fatigue, no foot paresthesias, no polydipsia, no polyphagia, no visual change and no weakness. There are no hypoglycemic complications. Symptoms are stable. Pertinent negatives for diabetic complications include no CVA, heart disease, nephropathy or peripheral neuropathy. Risk factors for coronary artery disease include diabetes mellitus and dyslipidemia. Current diabetic treatment includes oral agent (monotherapy). She is compliant with treatment all of the time. An DARYL inhibitor/angiotensin II receptor raúl is being taken. She does not see a manager technical services.Eye exam is not current. Difficulty Urinating This is a chronic problem. The current episode started in the past 7 days. The problem occurs every urination. The problem has been gradually worsening. The quality of the pain is described as burning. There has been no fever. She is Not sexually active. There is No history of pyelonephritis. Associated symptoms include urgency. Pertinent negatives include no chills, discharge, flank pain, frequency, hematuria, hesitancy, nausea or vomiting. She has tried nothing for the symptoms. The treatment provided no relief. SUBJECTIVE: MEDICATIONS: Current Outpatient Medications Medication Instructions ALPRAZolam (XANAX) 0.5 mg, Oral, 2 times daily PRN aspirin 325 mg, Oral, Daily atorvastatin (LIPITOR) 80 mg, Oral, Daily dapagliflozin (FARXIGA) 5 mg, Oral, Daily gabapentin (NEURONTIN) 300 mg, Oral, Daily, Take 1 capsule (300 mg) by mouth Daily hydroxyurea (HYDREA) 500 mg, Daily latanoprost (Xalatan) 0.005 % ophthalmic solution INSTILL 1 DROP IN EACH EYE EVERY DAY AT BEDTIME levETIRAcetam (KEPPRA) 500 mg, Oral, 2 times daily metoprolol tartrate (Lopressor) 25 MG tablet TAKE 1 TABLET (25 MG) BY MOUTH IN THE MORNING AND BEFORE BEDTIME oxyCODONE-acetaminophen (Percocet) 7.5-325 MG tablet 1 tablet, Oral, 2 times daily rOPINIRole (REQUIP) 0.5 mg, Oral, Daily ALLERGIES: Allergies Allergen Reactions Nickel Unknown Penicillin G Benzathine Phenytoin Unknown Zinc Acetate Penicillins Rash and Unknown Phenobarbital Rash and Unknown Phenytoin Sodium Extended Rash REVIEW OF SYMPTOMS: Review of Systems Constitutional: Negative for appetite change, chills, fatigue and fever. HENT: Negative for congestion, ear pain and sore throat. Eyes: Negative for pain, discharge, redness and visual disturbance. Respiratory: Negative for cough, shortness of breath and wheezing. Cardiovascular: Negative for chest pain, palpitations and leg swelling. Gastrointestinal: Negative for abdominal pain, blood in stool, constipation, diarrhea, nausea and vomiting. Genitourinary: Positive for dysuria and urgency. Negative for difficulty urinating, flank pain, frequency, hematuria and hesitancy. Musculoskeletal: Positive for back pain. Negative for arthralgias, joint swelling and myalgias. Skin: Negative for rash and wound. Neurological: Negative for dizziness, tremors, seizures, syncope, weakness and headaches. Psychiatric/Behavioral: Negative for behavioral problems, self-injury and suicidal ideas. The patient is not nervous/anxious. Hematological: Does not bruise/bleed easily. Endocrine: Positive for polyuria. Negative for polydipsia and polyphagia. Allergic/Immunologic: Negative for environmental allergies and food allergies. PAST MEDICAL HISTORY Past Medical History: Diagnosis Date Age-related osteoporosis without current pathological fracture ([facility]) B12 deficiency Current episode of major depressive disorder without prior episode ([facility]) Epilepsy, unspecified, not intractable, without status epilepticus 09/03/2018 Essential (primary) hypertension (CMS/HCC) FUENTES (generalized anxiety disorder) (CMS/HCC) Hyperlipidemia (CMS/HCC) Insomnia, unspecified Left carpal tunnel syndrome Migraine Nicotine dependence, cigarettes, uncomplicated Restless leg syndrome Stroke (CMS/HCC) Past Surgical History: Procedure Laterality Date BILATERAL SALPINGOOPHORECTOMY CATARACT EXTRACTION HIP ARTHROSCOPY W/ LABRAL REPAIR TOTAL ABDOMINAL HYSTERECTOMY family history includes Cancer in her mother; Diabetes in her maternal grandmother and mother; Heart attack in her brother; Hypertension in her brother; No Known Problems in her father. OBJECTIVE: Visit Vitals Smoking Status Every Day Physical Exam Vitals and nursing note reviewed. Constitutional: General: She is not in acute distress. Appearance: Normal appearance. HENT: Head: Normocephalic and atraumatic. Right Ear: External ear normal. Left Ear: External ear normal. Nose: Nose normal. Mouth/Throat: Mouth: Mucous membranes are moist. Eyes: Extraocular Movements: Extraocular movements intact. Conjunctiva/sclera: Conjunctivae normal. Cardiovascular: Rate and Rhythm: Normal rate and regular rhythm. Pulses: Normal pulses. Heart sounds: Normal heart sounds. Pulmonary: Effort: Pulmonary effort is normal. Breath sounds: Normal breath sounds. No wheezing or rhonchi. Abdominal: General: Bowel sounds are normal. There is no distension. Palpations: Abdomen is soft. There is no mass. Tenderness: There is no abdominal tenderness (suprapubic pain). Musculoskeletal: Cervical back: Normal range of motion and neck supple. Right lower leg: No edema. Left lower leg: No edema. Comments: Tenderness and decreased ROM lumbar Skin: General: Skin is warm and dry. Capillary Refill: Capillary refill takes 2 to 3 seconds. Findings: No rash. Neurological: General: No focal deficit present. Mental Status: She is alert and oriented to person, place, and time. Psychiatric: Mood and Affect: Mood normal. Behavior: Behavior normal. Thought Content: Thought content normal. Judgment: Judgment normal. ASSESSMENT AND PLAN: No follow-ups on file. Problem List Items Addressed This Visit Current episode of major depressive disorder without prior episode (CMS/HCC) At last appt, we discussed if need for grief counseling, she will think about this Current meds: none Overall feels she is doing better Essential (primary) hypertension (CMS/HCC) (Chronic) Please check blood pressure daily and record DASH diet Limit caffeine Take medication as directed Contact office if chest pain, pressure, dizziness, shortness of breath, swelling legs Recommend slow position changes Current med: b raúl FUENTES (generalized anxiety disorder) ([facility]) Current meds: xanax, only takes PRN OARRS reviewed Med agreement signed 02/24/25 Lumbar back pain Takes percocet 7.5 BID Recommend pain mgmt, she is asking to wait about 2 months Is working out social security etc Relevant Medications oxyCODONE-acetaminophen (Percocet) 7.5-325 MG tablet Nicotine dependence, cigarettes, uncomplicated The patient has been advised of the risks of continued smoking: stroke, ME, all forms of cancer, lung disease, and . Options for quitting smoking include: cold turkey, hypnosis, acupuncture, nicotine replacement meds (gum, lozenges, and patches), Buproprion, and Varenicline. At this time pt is encouraged to evaluate their goals for wanting to quit smoking, and reach out to provider when ready to start this process Type 2 diabetes mellitus with diabetic chronic kidney disease ([facility]) - Primary Check blood sugars daily, notify if <70 or >200. Take medications (pills or insulin) as directed. Monitor for s/s of hypoglycemia (sweaty, dizziness, nausea, vomiting, or shakiness). Watch for increase in thirst, urination, or appetite. Inspect feet frequently monitoring for open wounds , and also recommend yearly eye exam. Pt should attempt to remain as physically active as chronic conditions allow, as well as trying to follow a diet low in carbohydrates, and simple sugars. Current meds: asa, statin, farxiga, A1c: 5.8% 04/10/25 Relevant Orders POCT glycosylated hemoglobin (Hb A1C) docked device (Completed) UTI symptoms Will treat with macrobid Fu if not better Relevant Medications nitrofurantoin, macrocrystal-monohydrate, (Macrobid) 100 MG capsule Other Relevant Orders POCT Urinalysis dipstick Other Visit Diagnoses Convulsions, unspecified convulsion type ([facility]) Relevant Medications levETIRAcetam (Keppra) 500 MG tablet Past 3 days pt has been having burning and itching with urination, and lower back pain, no fever, no chills, no foul smell, no dark in color, pt is having frequent urination. Associated Problem(s): Nicotine dependence, cigarettes, uncomplicated The patient has been advised of the risks of continued smoking: stroke, ME, all forms of cancer, lung disease, and . Options for quitting smoking include: cold turkey, hypnosis, acupuncture, nicotine replacement meds (gum, lozenges, and patches), Buproprion, and Varenicline. At this time pt is encouraged to evaluate their goals for wanting to quit smoking, and reach out to provider when ready to start this process Associated Problem(s): Current episode of major depressive disorder without prior episode ([facility]) At last appt, we discussed if need for grief counseling, she will think about this Current meds: none Overall feels she is doing better Associated Problem(s): Type 2 diabetes mellitus with diabetic chronic kidney disease ([facility]) Check blood sugars daily, notify if <70 or >200. Take medications (pills or insulin) as directed. Monitor for s/s of hypoglycemia (sweaty, dizziness, nausea, vomiting, or shakiness). Watch for increase in thirst, urination, or appetite. Inspect feet frequently monitoring for open wounds , and also recommend yearly eye exam. Pt should attempt to remain as physically active as chronic conditions allow, as well as trying to follow a diet low in carbohydrates, and simple sugars. Current meds: asa, statin, farxiga, A1c: 5.8% 04/10/25 Associated Problem(s): Lumbar back pain Takes percocet 7.5 BID Recommend pain mgmt, she is asking to wait about 2 months Is working out social security etc Associated Problem(s): FUENTES (generalized anxiety disorder) (CMS/HCC) Current meds: xanax, only takes PRN OARRS reviewed Med agreement signed 02/24/25 Associated Problem(s): Essential (primary) hypertension (CMS/HCC) Please check blood pressure daily and record DASH diet Limit caffeine Take medication as directed Contact office if chest pain, pressure, dizziness, shortness of breath, swelling legs Recommend slow position changes Current med: b raúl documented in this encounter [facility] 02-25-2025 History of Present illness Narrative Associated Problem(s): Fibromyalgia, primary gabapentin Last seen in office on 12/25/24 Hypertension. BP checks at home: Last check was last week 143/84 she was having anxiety, heart racing and palpations. Heart rate was 73 FUENTES: Pt was 's primary caregiver, he had on 01/18 Pt states she does not normally sleep well but the medication helps with that. Pt has been taking the xanax regularly since 's passing. She does take 2x daily Anxiety has been controlled and palpations decreased. No SOB or pain in the chest Pt has pain in left shoulder, lower back, and right hip- from carrying more the load since husbands passing Loss of apatite Lesly Steve is a 74 y.o. female presents with chief complaint of FUENTES HPI: Last seen in office on 12/25/24 Hypertension. BP checks at home: Last check was last week 143/84 she was having anxiety, heart racing and palpations. Heart rate was 73 FUENTES: Pt was 's primary caregiver, he had on 01/18 Pt states she does not normally sleep well but the medication helps with that. Pt has been taking the xanax regularly since 's passing. She does take 2x daily Anxiety has been controlled and palpations decreased. No SOB or pain in the chest Pt has pain in left shoulder, lower back, and right hip- from carrying more the load since husbands passing Loss of appetite Hypertension This is a chronic problem. The current episode started more than 1 year ago. The problem is unchanged. The problem is controlled. Associated symptoms include palpitations (occ). Pertinent negatives include no blurred vision, chest pain, headaches, peripheral edema or shortness of breath. There are no associated agents to hypertension. Risk factors for coronary artery disease include diabetes mellitus and post-menopausal state. Past treatments include beta blockers. The current treatment provides significant improvement. There are no compliance problems. Diabetes She presents for her follow-up diabetic visit. She has type 2 diabetes mellitus. Her disease course has been stable. Hypoglycemia symptoms include nervousness/anxiousness. Pertinent negatives for hypoglycemia include no dizziness, headaches, seizures or tremors. Associated symptoms include weight loss. Pertinent negatives for diabetes include no blurred vision, no chest pain, no polydipsia, no polyphagia and no polyuria. There are no hypoglycemic complications. Symptoms are stable. Risk factors for coronary artery disease include diabetes mellitus, dyslipidemia, hypertension and post-menopausal. Current diabetic treatment includes oral agent (monotherapy). An DARYL inhibitor/angiotensin II receptor raúl is not being taken. SUBJECTIVE: MEDICATIONS: Current Outpatient Medications Medication Instructions ALPRAZolam (XANAX) 0.5 mg, Oral, 2 times daily PRN aspirin 325 mg, Oral, Daily atorvastatin (LIPITOR) 80 mg, Oral, Daily busPIRone (BUSPAR) 10 mg, 2 times daily dapagliflozin (FARXIGA) 5 mg, Oral, Daily gabapentin (NEURONTIN) 300 mg, Oral, Daily, Take 1 capsule (300 mg) by mouth Daily hydroxyurea (HYDREA) 500 mg, Daily latanoprost (Xalatan) 0.005 % ophthalmic solution INSTILL 1 DROP IN EACH EYE EVERY DAY AT BEDTIME levETIRAcetam (KEPPRA) 500 mg, Oral, 2 times daily metoprolol tartrate (LOPRESSOR) 25 mg, Oral, 2 times daily oxybutynin (DITROPAN) 5 mg, Every 8 hours oxyCODONE-acetaminophen (Percocet) 7.5-325 MG tablet 1 tablet, Oral, 2 times daily rOPINIRole (REQUIP) 0.5 mg, Oral, Daily ALLERGIES: Allergies Allergen Reactions Nickel Unknown Penicillin G Benzathine Phenytoin Unknown Zinc Acetate Penicillins Rash and Unknown Phenobarbital Rash and Unknown Phenytoin Sodium Extended Rash REVIEW OF SYMPTOMS: Review of Systems Constitutional: Positive for weight loss. Negative for appetite change, chills and fever. HENT: Negative for congestion, ear pain and sore throat. Eyes: Negative for blurred vision, pain, discharge, redness and visual disturbance. Respiratory: Negative for cough, shortness of breath and wheezing. Cardiovascular: Positive for palpitations (occ). Negative for chest pain and leg swelling. Gastrointestinal: Negative for abdominal pain, blood in stool, constipation, diarrhea, nausea and vomiting. Genitourinary: Negative for difficulty urinating, dysuria and frequency. Musculoskeletal: Positive for arthralgias and back pain. Negative for joint swelling and myalgias. Skin: Negative for rash and wound. Neurological: Negative for dizziness, tremors, seizures, syncope and headaches. Psychiatric/Behavioral: Negative for behavioral problems, self-injury and suicidal ideas. The patient is nervous/anxious. Hematological: Does not bruise/bleed easily. Endocrine: Negative for polydipsia, polyphagia and polyuria. Allergic/Immunologic: Negative for environmental allergies and food allergies. PAST MEDICAL HISTORY Past Medical History: Diagnosis Date Age-related osteoporosis without current pathological fracture ([facility]) B12 deficiency Current episode of major depressive disorder without prior episode ([facility]) Epilepsy, unspecified, not intractable, without status epilepticus 09/03/2018 Essential (primary) hypertension (CMS/HCC) FUENTES (generalized anxiety disorder) (CMS/HCC) Hyperlipidemia (CMS/HCC) Insomnia, unspecified Left carpal tunnel syndrome Migraine Nicotine dependence, cigarettes, uncomplicated Restless leg syndrome Stroke (CMS/HCC) Past Surgical History: Procedure Laterality Date BILATERAL SALPINGOOPHORECTOMY CATARACT EXTRACTION HIP ARTHROSCOPY W/ LABRAL REPAIR TOTAL ABDOMINAL HYSTERECTOMY family history includes Cancer in her mother; Diabetes in her maternal grandmother and mother; Heart attack in her brother; Hypertension in her brother; No Known Problems in her father. OBJECTIVE: Visit Vitals BP 140/82 (BP Location: Left arm, Patient Position: Sitting, BP Cuff Size: Adult long) Pulse 62 Temp 98.1 F (Temporal) Resp 20 Wt 130 lb 12.8 oz SpO2 95% BMI 22.45 kg/m Smoking Status Every Day BSA 1.64 m Physical Exam Vitals and nursing note reviewed. Constitutional: General: She is not in acute distress. Appearance: Normal appearance. HENT: Head: Normocephalic and atraumatic. Right Ear: External ear normal. Left Ear: External ear normal. Nose: Nose normal. Mouth/Throat: Mouth: Mucous membranes are moist. Eyes: Extraocular Movements: Extraocular movements intact. Conjunctiva/sclera: Conjunctivae normal. Neck: Vascular: No carotid bruit. Cardiovascular: Rate and Rhythm: Normal rate and regular rhythm. Pulses: Normal pulses. Heart sounds: Normal heart sounds. No murmur heard. Pulmonary: Effort: Pulmonary effort is normal. Breath sounds: Normal breath sounds. No wheezing or rhonchi. Abdominal: General: Bowel sounds are normal. There is no distension. Palpations: Abdomen is soft. There is no mass. Tenderness: There is no abdominal tenderness. Musculoskeletal: General: Normal range of motion. Cervical back: Normal range of motion and neck supple. Right lower leg: No edema. Left lower leg: No edema. Lymphadenopathy: Cervical: No cervical adenopathy. Skin: General: Skin is warm and dry. Capillary Refill: Capillary refill takes 2 to 3 seconds. Findings: No rash. Neurological: General: No focal deficit present. Mental Status: She is alert and oriented to person, place, and time. Psychiatric: Mood and Affect: Mood normal. Behavior: Behavior normal. Thought Content: Thought content normal. Judgment: Judgment normal. ASSESSMENT AND PLAN: No follow-ups on file. Problem List Items Addressed This Visit Age-related osteoporosis without current pathological fracture ([facility]/HCC) RESOLVED: Anxiety (Chronic) Current episode of major depressive disorder without prior episode ([facility]/HCC) PHQ 9=12 Current meds: none Discussed if need for grief counseling, she will think about this Essential (primary) hypertension ([facility]/HCC) (Chronic) Please check blood pressure daily and record DASH diet Limit caffeine Take medication as directed Contact office if chest pain, pressure, dizziness, shortness of breath, swelling legs Recommend slow position changes Current med: b raúl FUENTES (generalized anxiety disorder) (CMS/HCC) Current meds: xanax FUENTES 7=11 OARRS reviewed Med agreement signed Fibromyalgia, primary (Chronic) gabapentin Hyperlipidemia, unspecified ([facility]/HCC) On statin therapy Check labs yearly and prn dose chagnes Nicotine dependence, cigarettes, uncomplicated The patient has been advised of the risks of continued smoking: stroke, ME, all forms of cancer, lung disease, and . Options for quitting smoking include: cold turkey, hypnosis, acupuncture, nicotine replacement meds (gum, lozenges, and patches), Buproprion, and Varenicline. At this time pt is encouraged to evaluate their goals for wanting to quit smoking, and reach out to provider when ready to start this process Restless leg syndrome Is currently taking ropinirole Type 2 diabetes mellitus with diabetic chronic kidney disease ([facility]) Check blood sugars daily, notify if <70 or >200. Take medications (pills or insulin) as directed. Monitor for s/s of hypoglycemia (sweaty, dizziness, nausea, vomiting, or shakiness). Watch for increase in thirst, urination, or appetite. Inspect feet frequently monitoring for open wounds , and also recommend yearly eye exam. Pt should attempt to remain as physically active as chronic conditions allow, as well as trying to follow a diet low in carbohydrates, and simple sugars. Current meds: asa, statin, farxiga A1c: 5.8 on 12/20/24 Essential (hemorrhagic) thrombocythemia Monitor labs periodically Seizure ([facility]) - Primary (Chronic) Current meds: keppra BID does follow with Neurology Associated Problem(s): Nicotine dependence, cigarettes, uncomplicated The patient has been advised of the risks of continued smoking: stroke, ME, all forms of cancer, lung disease, and . Options for quitting smoking include: cold turkey, hypnosis, acupuncture, nicotine replacement meds (gum, lozenges, and patches), Buproprion, and Varenicline. At this time pt is encouraged to evaluate their goals for wanting to quit smoking, and reach out to provider when ready to start this process Associated Problem(s): Hyperlipidemia, unspecified (CMS/HCC) On statin therapy Check labs yearly and prn dose chagnes Associated Problem(s): FUENTES (generalized anxiety disorder) (CMS/HCC) Current meds: xanax FUENTES 7=11 OARRS reviewed Med agreement signed Associated Problem(s): Current episode of major depressive disorder without prior episode (CMS/HCC) PHQ 9=12 Current meds: none Discussed if need for grief counseling, she will think about this Associated Problem(s): Essential (hemorrhagic) thrombocythemia Monitor labs periodically Associated Problem(s): Type 2 diabetes mellitus with diabetic chronic kidney disease (CMS/HCC) Check blood sugars daily, notify if <70 or >200. Take medications (pills or insulin) as directed. Monitor for s/s of hypoglycemia (sweaty, dizziness, nausea, vomiting, or shakiness). Watch for increase in thirst, urination, or appetite. Inspect feet frequently monitoring for open wounds , and also recommend yearly eye exam. Pt should attempt to remain as physically active as chronic conditions allow, as well as trying to follow a diet low in carbohydrates, and simple sugars. Current meds: asa, statin, farxiga A1c: 5.8 on 12/20/24 Associated Problem(s): Essential (primary) hypertension (CMS/HCC) Please check blood pressure daily and record DASH diet Limit caffeine Take medication as directed Contact office if chest pain, pressure, dizziness, shortness of breath, swelling legs Recommend slow position changes Current med: b raúl Associated Problem(s): Restless leg syndrome Is currently taking ropinirole Associated Problem(s): Seizure (CMS/HCC) Current meds: keppra BID does follow with Neurology documented in this encounter [facility] 02-25-2025 Instructions Magdalene Goodrich NP - 02/25/2025 2:00 PM EDT No changes in meds If you would like to see a grief counselor I can get you in touch with someone please let me know documented in this encounter [facility] 02-24-2025 Telephone encounter Note 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 is Magdalene, and I need to refill on my xanax. And I have a PIN and sent to [facility] My birthday, 1950. Thank you. 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 And I have a PIN and sent to [facility] My birthday, 1950. Thank you. documented in this encounter [facility] 12-25-2024 History of Present illness Narrative Associated Problem(s): FUENTES (generalized anxiety disorder) (CMS/HCC) States she has been taking Alprazolam 0.5 mg BID PRN for anxiety for 20 years. Upon looking back into medical records, it does appear patient has been taking Xanax for quite some time PRN. Will order RX today. Does not take an SSRI or attend therapy. 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 Denies SI/HI. Will set patient up with CCM Associated Problem(s): Prediabetes A1C 5.8% Currently taking Farxiga 5mg Last Eye Exam done 6 months ago- @ [place], [place] Associated Problem(s): Hyperlipidemia, unspecified (CMS/HCC) Currently taking atorvastatin 80mg Denies any myalgias. Most recent Lipid Panel Continue current regimen. Associated Problem(s): Essential (primary) hypertension (CMS/HCC) Currently taking Metoprolol 25mg Checks BP at home; Averages are 130's/70's. Denies orthostatic changes, dizziness, cough, shortness of breath, swelling in extremities. Continue current regimen. Given BP log, advised pt to record BP and bring log back with them to next visit. Subjective Patient ID: Lesly Steve is a 74 y.o. female who presents for Follow-up. HPI Specialists: Dr. Tomlin- Heme/Onc for thrombocytosis [...] Currently taking atorvastatin 80mg Denies any myalgias. Most recent Lipid Panel - Continue current regimen. Component Ref Range & Units 3 mo ago (09/03/24) 3 mo ago (09/03/24) 3 mo ago (09/03/24) 4 mo ago (08/13/24) 4 mo ago (08/13/24) 4 mo ago (08/13/24) TRIGLYCERIDES <=150 mg/dL 102 [...] ALBUMIN GLOBULIN RATIO 1.1 1.2 Resulting Agency [facility] Prediabetes: A1C 5.8% Currently taking Farxiga 5mg Last Eye Exam done 6 months ago- @ [place], [place] FUENTES: States she has been taking Alprazolam 0.5 mg BID PRN for anxiety for 20 years. Upon looking back into medical records, it does appear patient has been taking Xanax for quite some time PRN. Will order RX today. Does not take an SSRI or attend therapy. 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 Review of Systems Constitutional: Negative for activity [...] Vitals reviewed. Constitutional: Appearance: Normal appearance. HENT: Right Ear: Tympanic membrane normal. Left Ear: [...] sounds are normal. Palpations: Abdomen is soft. Skin: Capillary Refill: Capillary refill takes less than 2 seconds. Neurological: Mental Status: She is alert and oriented to person, place, and time. Assessment/Plan Problem List Items Addressed This Visit Unspecified convulsions (CMS/HCC) Relevant Medications levETIRAcetam (Keppra) 500 MG tablet Essential (primary) hypertension (CMS/HCC) (Chronic) Currently taking Metoprolol 25mg Checks BP at home; Averages are 130's/70's. Denies orthostatic changes, dizziness, cough, shortness of breath, swelling in extremities. Continue current regimen. Given BP log, advised pt to record BP and bring log back with them to next visit. FUENTES (generalized anxiety disorder) (CMS/HCC) - Primary States she has been taking Alprazolam 0.5 mg BID PRN for anxiety for 20 years. Upon looking back into medical records, it does appear patient has been taking Xanax for quite some time PRN. Will order RX today. Does not take an SSRI or attend therapy. 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 Denies SI/HI. Will set patient up with CCM Relevant Medications ALPRAZolam (Xanax) 0.5 MG tablet Hyperlipidemia, unspecified (CMS/HCC) Currently taking atorvastatin 80mg Denies any myalgias. Most recent Lipid Panel 08/2024- WNL Continue current regimen. Prediabetes A1C 5.8% Currently taking Farxiga 5mg Last Eye Exam done 6 months ago- @ [place], [place] documented in this encounter [facility] 12-17-2024 Telephone encounter Note MARILIN:09/23/2024 NOV:12/23/2024 [facility] 12-17-2024 Miscellaneous Notes MARILIN:09/23/2024 NOV:12/23/2024 documented in this encounter [facility] 10-14-2024 Telephone encounter Note MARILIN:09/23/2024 NOV:12/23/2024 [facility] 10-14-2024 Miscellaneous Notes MARILIN:09/23/2024 NOV:12/23/2024 documented in this encounter [facility] 09-24-2024 History of Present illness Narrative Associated Problem(s): Prediabetes A1C 6.1% Currently taking Farxiga 5mg Last Eye Exam done 6 months ago- @ [place], [place] Associated Problem(s): Type 2 diabetes mellitus with chronic kidney disease, without long-term current use of insulin (HCC) ([facility]) Associated Problem(s): Hyperlipidemia, unspecified (CMS/HCC) Currently taking [...] up/Er 09/21/24 ). HPI Specialists: Dr. Tomlin- Anna/Onc for thrombocytosis Cardiology- Dr. Neto Hooper or [...] ALBUMIN GLOBULIN RATIO 1.1 1.2 Resulting Agency [facility] Prediabetes: A1C 6.1% Currently taking Farxiga 5mg Last Eye Exam done 6 months ago- @ [place], [place] Was seen in ED for CVA concerns due to muscle cramps. CT head negative. Labs all WNL except reported slighlty elevated [employer]. Pt reports she was dehydrated but feels [...] Eye Exam done 6 months ago- @ [place], [place] Relevant Orders Microalbumin / creatinine urine ratio Hemoglobin A1c Comprehensive metabolic panel CBC and differential documented in this encounter [facility] 09-11-2024 Telephone encounter Note MARILIN:07/24/2024 NOV:09/24/2024 [facility] 09-11-2024 Miscellaneous Notes MARILIN:07/24/2024 NOV:09/24/2024 documented in this encounter [facility] 07-24-2024 History of Present illness Narrative Associated Problem(s): Nicotine dependence, cigarettes, [...] of preventative Care- Will request results form [facility] and Dr. Schwartz Review of Systems Constitutional: [...] sleep per night. documented in this encounter [facility] 07-24-2024 Instructions Andrew Church NP - 07/24/2024 4:30 PM EDT [...] sleep per night. documented in this encounter [facility] 04-02-2024 Note [facility] Cardiology Clinic Note Chief Complaint: New patient here to establish care. Ref from Dr. Schwartz for bradycardia. She had stroke last month and was admitted to [facility]. Still smokes almost 1 PPD but is trying to cut back. Says she's had mitral valve prolapse forever . Does feel palpitations at times. Thinks she used to see cardiology in [place] years ago. Denies chest pain, SOB, and [...] year ago. She used to see a skating rink manager several years ago for what she describes [...] clinic following testing Jaron Johnson MD, MPH, [facility], [facility] [facility], [facility] Interventional Cardiology Pager Email: [email or web address] 03-25-2024 Miscellaneous Notes error [facility] Telephone encounter Note error [facility] 02-12-2024 Miscellaneous Notes ----- Message from Cyndie Frankel PA-C sent at 02/09/2024 1:09 PM EDT ----- Regarding: [facility] up Hospital follow up. Left > R multifocal cerebral ischemic stroke, suspected cardioembolic. R ICA stenosis 69%. Smoker. Expressive aphasia. Needs 30 day cardiac event monitor. Please arrange to be sent to patient house. 4-6 week follow up with HERNÁN/Juan/Dr. Rose/Stroke Fellow Called patient and no answer, VM not set up. Spoke with patient and she said to call her sister to schedule appt Called [place] and there was no answer vm was full Dolores, when you talk to family, please let them know event monitor was sent to patient's home address and ask for patient to wear it please. Called [place] and no answer, her mailbox was full. Will try back Called [place] and the line answered only to disconnect Called [place] 2x goes straight to VM which is full and can't leave messages Called patient and she hung up documented in this encounter [facility] 02-12-2024 Telephone encounter Note ----- Message from Cyndie Frankel PA-C sent at 02/09/2024 1:09 PM EDT ----- Regarding: [facility] up Hospital follow up. Left > R multifocal cerebral ischemic stroke, suspected cardioembolic. R ICA stenosis 69%. Smoker. Expressive aphasia. Needs 30 day cardiac event monitor. Please arrange to be sent to patient house. 4-6 week follow up with HERNÁN/Juan/Dr. Rose/Stroke Fellow [facility] 02-12-2024 Telephone encounter Note Called patient and no answer, VM not set up. [facility] 02-12-2024 Telephone encounter Note Spoke with patient and she said to call her sister to schedule appt Called [place] and there was no answer vm was full [facility] 02-12-2024 Telephone encounter Note Dolores, when you talk to family, please let them know event monitor was sent to patient's home address and ask for patient to wear it please. [facility] 02-12-2024 Telephone encounter Note Called [place] and no answer, her mailbox was full. Will try back [facility] 02-12-2024 Telephone encounter Note Called [place] and the line answered only to disconnect [facility] 02-12-2024 Telephone encounter Note Called [place] 2x goes straight to VM which is full and can't leave messages Called patient and she hung up [facility] [employer] [facility] 08-14-2023 Evaluation note Encounter Date Diagnosis Assessment Notes Aug, LLQ abdominal pain (ICD-10 - R10.32) Reviewed paperwork and test results from [facility] ER. She agrees she needs a colonoscopy due to ongoing blood in her stool and LLQ pain. Agrees to referral to Dr. Stevenson. Aug, Hematochezia (ICD-10 - K92.1) as above [employer] Other 04-06-2023 NotePROCEDURE: XR HIP LT 2 [...] Electronically authenticated by: RAIN HOWE Date: 2023-02-09 11:04[facility]04-04-2023 Evaluation note* Encounter Date Diagnosis Assessment Notes [...] OARRS and reviewed pain contract brii Grace. [employer] Other Evaluation noteNo [facility] Other Evaluation noteNonPicker Other Evaluation note* Diagnosis Onset Date Resolution Status Seizure acute Stroke acute [facility] Work Phone: Evaluation note* Diagnosis Lumbar back [...] essential hypertension Mixed hyperlipidemia (CMS/HCC) Mixed hyperlipidemia FUENTES (generalized anxiety disorder) (CMS/HCC)- Primary Generalized anxiety disorder Convulsions, unspecified convulsion type (CMS/HCC) Essential (primary) hypertension (CMS/HCC) Unspecified essential hypertension Mixed hyperlipidemia (CMS/HCC) Mixed hyperlipidemia Prediabetes Other abnormal glucose [facility] Diagnosis Essential (primary) hypertension (CMS/HCC)- Primary Unspecified essential hypertension Mixed hyperlipidemia (CMS/HCC) Mixed hyperlipidemia Nicotine dependence, cigarettes, uncomplicated Cerebrovascular accident (CVA), unspecified mechanism (CMS/HCC) Prediabetes- Primary Other abnormal glucose Essential (primary) hypertension (CMS/HCC) Unspecified essential hypertension Mixed hyperlipidemia (CMS/HCC) Mixed hyperlipidemia FUENTES (generalized anxiety disorder) (CMS/HCC)- Primary Generalized anxiety disorder Convulsions, unspecified convulsion type (CMS/HCC) Essential (primary) hypertension (CMS/HCC) Unspecified essential hypertension Mixed hyperlipidemia (CMS/HCC) Mixed hyperlipidemia Prediabetes Other abnormal glucose Hyperlipidemia, unspecified hyperlipidemia type (CMS/HCC) Lumbar back pain Lumbago [facility] Diagnosis Essential (primary) hypertension ([facility]/HCC)- Primary Unspecified essential hypertension Mixed hyperlipidemia ([facility]/HCC) Mixed hyperlipidemia Nicotine dependence, cigarettes, uncomplicated Cerebrovascular accident (CVA), unspecified mechanism ([facility]/HCC) Prediabetes- Primary Other abnormal glucose Essential (primary) hypertension ([facility]/HCC) Unspecified essential hypertension Mixed hyperlipidemia ([facility]/HCC) Mixed hyperlipidemia FUENTES (generalized anxiety disorder) ([facility])- Primary Generalized anxiety disorder Convulsions, unspecified convulsion type ([facility]/HCC) Essential (primary) hypertension ([facility]/HCC) Unspecified essential hypertension Mixed hyperlipidemia ([facility]/HCC) Mixed hyperlipidemia Prediabetes Other abnormal glucose Lumbar back pain Lumbago [facility] Diagnosis Essential (primary) hypertension ([facility]/HCC)- Primary Unspecified essential hypertension Mixed hyperlipidemia ([facility]) Mixed hyperlipidemia Nicotine dependence, cigarettes, uncomplicated Cerebrovascular accident (CVA), unspecified mechanism ([facility]/HCC) Prediabetes- Primary Other abnormal glucose Essential (primary) hypertension ([facility]) Unspecified essential hypertension Mixed hyperlipidemia ([facility]) Mixed hyperlipidemia FUENTES (generalized anxiety disorder) ([facility])- Primary Generalized anxiety disorder Convulsions, unspecified convulsion type ([facility]) Essential (primary) hypertension ([facility] Unspecified essential hypertension Mixed hyperlipidemia ([facility]) Mixed hyperlipidemia Prediabetes Other abnormal glucose Restless leg syndrome Restless legs syndrome (RLS) documented in this encounter [facility]* Diagnosis Essential (primary) hypertension ([facility]/HCC)- Primary Unspecified essential hypertension Mixed hyperlipidemia ([facility]) Mixed hyperlipidemia Nicotine dependence, cigarettes, uncomplicated Cerebrovascular accident (CVA), unspecified mechanism ([facility]) Prediabetes- Primary Other abnormal glucose Essential (primary) hypertension ([facility]/HCC) Unspecified essential hypertension Mixed hyperlipidemia ([facility]/HCC) Mixed hyperlipidemia FUENTES (generalized anxiety disorder) ([facility])- Primary Generalized anxiety disorder Convulsions, unspecified convulsion type ([facility]/HCC) Essential (primary) hypertension ([facility] Unspecified essential hypertension Mixed hyperlipidemia ([facility]) Mixed hyperlipidemia Prediabetes Other abnormal glucose FUENTES (generalized anxiety disorder) ([facility]) Generalized anxiety disorder Restless leg syndrome Restless legs syndrome (RLS) Seizure ([facility])- Primary Other convulsions Type 2 diabetes mellitus with diabetic chronic kidney disease ([facility]) Essential (hemorrhagic) thrombocythemia Restless leg syndrome Restless legs syndrome (RLS) Essential (primary) hypertension ([facility]) Unspecified essential hypertension Age-related osteoporosis without current pathological fracture ([facility]) Fibromyalgia, primary Anxiety Anxiety state, unspecified Current episode of major depressive disorder without prior episode, unspecified depression episode severity ([facility]) FUENTES (generalized anxiety disorder) ([facility]) Generalized anxiety disorder Mixed hyperlipidemia ([facility]) Mixed hyperlipidemia Nicotine dependence, cigarettes, uncomplicated documented in this encounter [facility]* Diagnosis Essential (primary) hypertension ([facility])- Primary Unspecified essential hypertension Mixed hyperlipidemia ([facility]) Mixed hyperlipidemia Nicotine dependence, cigarettes, uncomplicated Cerebrovascular accident (CVA), unspecified mechanism ([facility]) Prediabetes- Primary Other abnormal glucose Essential (primary) hypertension ([facility]) Unspecified essential hypertension Mixed hyperlipidemia ([facility]) Mixed hyperlipidemia FUENTES (generalized anxiety disorder) ([facility])- Primary Generalized anxiety disorder Convulsions, unspecified convulsion type ([facility]) Essential (primary) hypertension ([facility] Unspecified essential hypertension Mixed hyperlipidemia ([facility]) Mixed hyperlipidemia Prediabetes Other abnormal glucose Essential (primary) hypertension ([facility])- Primary Unspecified essential hypertension Type 2 diabetes mellitus with diabetic chronic kidney disease ([facility]) Essential (hemorrhagic) thrombocythemia Seizure ([facility]) Other convulsions Restless leg syndrome Restless legs syndrome (RLS) Age-related osteoporosis without current pathological fracture ([facility]) Fibromyalgia, primary Anxiety Anxiety state, unspecified Current episode of major depressive disorder without prior episode, unspecified depression episode severity ([facility]) FUENTES (generalized anxiety disorder) ([facility]) Generalized anxiety disorder Mixed hyperlipidemia ([facility]) Mixed hyperlipidemia Nicotine dependence, cigarettes, uncomplicated documented in this encounter [facility] HealthcareEvaluation note* Diagnosis Essential (primary) hypertension ([facility])- Primary Unspecified essential hypertension Mixed hyperlipidemia ([facility]) Mixed hyperlipidemia Nicotine dependence, cigarettes, uncomplicated Cerebrovascular accident (CVA), unspecified mechanism ([facility]) Prediabetes- Primary Other abnormal glucose Essential (primary) hypertension ([facility]) Unspecified essential hypertension Mixed hyperlipidemia ([facility]) Mixed hyperlipidemia FUENTES (generalized anxiety disorder) ([facility] Primary Generalized anxiety disorder Convulsions, unspecified convulsion type ([facility]/HCC) Essential (primary) hypertension ([facility]) Unspecified essential hypertension Mixed hyperlipidemia ([facility]) Mixed hyperlipidemia Prediabetes Other abnormal glucose Essential (primary) hypertension ([facility])- Primary Unspecified essential hypertension Type 2 diabetes mellitus with diabetic chronic kidney disease ([facility]) Essential (hemorrhagic) thrombocythemia Seizure ([facility]) Other convulsions Restless leg syndrome Restless legs syndrome (RLS) Age-related osteoporosis without current pathological fracture ([facility]) Fibromyalgia, primary Anxiety Anxiety state, unspecified Current episode of major depressive disorder without prior episode, unspecified depression episode severity ([facility]) FUENTES (generalized anxiety disorder) ([facility]) Generalized anxiety disorder Mixed hyperlipidemia ([facility]) Mixed hyperlipidemia Nicotine dependence, cigarettes, uncomplicated Cerebrovascular accident (CVA), unspecified mechanism ([facility]) documented in this encounter [facility] HealthcareEvaluation note* Diagnosis Essential (primary) hypertension ([facility])- Primary Unspecified essential hypertension Mixed hyperlipidemia ([facility]) Mixed hyperlipidemia Nicotine dependence, cigarettes, uncomplicated Cerebrovascular accident (CVA), unspecified mechanism ([facility]) Prediabetes- Primary Other abnormal glucose Essential (primary) hypertension ([facility]) Unspecified essential hypertension Mixed hyperlipidemia ([facility]) Mixed hyperlipidemia FUENTES (generalized anxiety disorder) ([facility])- Primary Generalized anxiety disorder Convulsions, unspecified convulsion type ([facility]) Essential (primary) hypertension ([facility] Unspecified essential hypertension Mixed hyperlipidemia ([facility]) Mixed hyperlipidemia Prediabetes Other abnormal glucose Essential (primary) hypertension ([facility])- Primary Unspecified essential hypertension Type 2 diabetes mellitus with diabetic chronic kidney disease ([facility]) Essential (hemorrhagic) thrombocythemia Seizure ([facility]) Other convulsions Restless leg syndrome Restless legs syndrome (RLS) Age-related osteoporosis without current pathological fracture ([facility]) Fibromyalgia, primary Anxiety Anxiety state, unspecified Current episode of major depressive disorder without prior episode, unspecified depression episode severity ([facility]) FUENTES (generalized anxiety disorder) ([facility]) Generalized anxiety disorder Mixed hyperlipidemia ([facility]) Mixed hyperlipidemia Nicotine dependence, cigarettes, uncomplicated Lumbar back pain Lumbago documented in this encounter [facility]* Diagnosis Essential (primary) hypertension ([facility])- Primary Unspecified essential hypertension Mixed hyperlipidemia ([facility]) Mixed hyperlipidemia Nicotine dependence, cigarettes, uncomplicated Cerebrovascular accident (CVA), unspecified mechanism ([facility]) Prediabetes- Primary Other abnormal glucose Essential (primary) hypertension ([facility]) Unspecified essential hypertension Mixed hyperlipidemia ([facility]) Mixed hyperlipidemia FUENTES (generalized anxiety disorder) ([facility])- Primary Generalized anxiety disorder Convulsions, unspecified convulsion type ([facility]) Essential (primary) hypertension ([facility] Unspecified essential hypertension Mixed hyperlipidemia ([facility]) Mixed hyperlipidemia Prediabetes Other abnormal glucose Essential (primary) hypertension ([facility])- Primary Unspecified essential hypertension Type 2 diabetes mellitus with diabetic chronic kidney disease ([facility]) Essential (hemorrhagic) thrombocythemia Seizure ([facility]) Other convulsions Restless leg syndrome Restless legs syndrome (RLS) Age-related osteoporosis without current pathological fracture ([facility]) Fibromyalgia, primary Anxiety Anxiety state, unspecified Current episode of major depressive disorder without prior episode, unspecified depression episode severity ([facility]) FUENTES (generalized anxiety disorder) ([facility]) Generalized anxiety disorder Mixed hyperlipidemia ([facility]) Mixed hyperlipidemia Nicotine dependence, cigarettes, uncomplicated Type 2 diabetes mellitus with stage 3a chronic kidney disease, without long-term current use of insulin ([facility]) ([facility])- Primary Essential (primary[facility] hypertension ([facility]) Unspecified essential hypertension FUENTES (generalized anxiety disorder) ([facility]) Generalized anxiety disorder Lumbar back pain Lumbago Current episode of major depressive disorder without prior episode, unspecified depression episode severity ([facility]) Nicotine dependence, cigarettes, uncomplicated UTI symptoms Convulsions, unspecified convulsion type ([facility]) documented in this encounter [facility]* Diagnosis Essential (primary) hypertension- Primary Unspecified essential hypertension Mixed hyperlipidemia Mixed hyperlipidemia Nicotine dependence, cigarettes, uncomplicated Cerebrovascular accident (CVA), unspecified mechanism ([facility]) Prediabetes- Primary Other abnormal glucose Essential (primary) hypertension Unspecified essential hypertension Mixed hyperlipidemia Mixed hyperlipidemia FUENTES (generalized anxiety disorder)- Primary Generalized anxiety disorder Convulsions, unspecified convulsion type ([facility]) Essential (primary) hypertension Unspecified essential hypertension Mixed hyperlipidemia Mixed hyperlipidemia Prediabetes Other abnormal glucose Essential (primary) hypertension- Primary Unspecified essential hypertension Type 2 diabetes mellitus with diabetic chronic kidney disease (HCC) Essential (hemorrhagic) thrombocythemia (HCC) Seizure ([facility]) Other convulsions Restless leg syndrome Restless legs syndrome (RLS) Age-related osteoporosis without current pathological fracture Fibromyalgia, primary Anxiety Anxiety state, unspecified Current episode of major depressive disorder without prior episode, unspecified depression episode severity FUENTES (generalized anxiety disorder) Generalized anxiety disorder Mixed hyperlipidemia Mixed hyperlipidemia Nicotine dependence, cigarettes, uncomplicated Type 2 diabetes mellitus with stage 3a chronic kidney disease, without long-term current use of insulin (HCC)- Primary Essential (primary) hypertension Unspecified essential hypertension FUENTES (generalized anxiety disorder) Generalized anxiety disorder Lumbar back pain Lumbago Current episode of major depressive disorder without prior episode, unspecified depression episode severity Nicotine dependence, cigarettes, uncomplicated UTI symptoms Convulsions, unspecified convulsion type (HCC) Lumbar back pain Lumbago FUENTES (generalized anxiety disorder) Generalized anxiety disorder documented in this encounter [facility]* Diagnosis Essential (primary) hypertension- Primary Unspecified essential hypertension Mixed hyperlipidemia Mixed hyperlipidemia Nicotine dependence, cigarettes, uncomplicated Cerebrovascular accident (CVA), unspecified mechanism (HCC) Prediabetes- Primary Other abnormal glucose Essential (primary) hypertension Unspecified essential hypertension Mixed hyperlipidemia Mixed hyperlipidemia FUENTES (generalized anxiety disorder)- Primary Generalized anxiety disorder Convulsions, unspecified convulsion type (HCC) Essential (primary) hypertension Unspecified essential hypertension Mixed hyperlipidemia Mixed hyperlipidemia Prediabetes Other abnormal glucose Essential (primary) hypertension- Primary Unspecified essential hypertension Type 2 diabetes mellitus with diabetic chronic kidney disease (HCC) Essential (hemorrhagic) thrombocythemia (HCC) Seizure (HCC) Other convulsions Restless leg syndrome Restless legs syndrome (RLS) Age-related osteoporosis without current pathological fracture Fibromyalgia, primary Anxiety Anxiety state, unspecified Current episode of major depressive disorder without prior episode, unspecified depression episode severity FUENTES (generalized anxiety disorder) Generalized anxiety disorder Mixed hyperlipidemia Mixed hyperlipidemia Nicotine dependence, cigarettes, uncomplicated Type 2 diabetes mellitus with stage 3a chronic kidney disease, without long-term current use of insulin (HCC)- Primary Essential (primary) hypertension Unspecified essential hypertension FUENTES (generalized anxiety disorder) Generalized anxiety disorder Lumbar back pain Lumbago Current episode of major depressive disorder without prior episode, unspecified depression episode severity Nicotine dependence, cigarettes, uncomplicated UTI symptoms Convulsions, unspecified convulsion type (HCC) Restless leg syndrome Restless legs syndrome (RLS) documented in this encounter [facility]* Diagnosis Essential (primary) hypertension- Primary Unspecified essential hypertension Mixed hyperlipidemia Mixed hyperlipidemia Nicotine dependence, cigarettes, uncomplicated Cerebrovascular accident (CVA), unspecified mechanism (HCC) Prediabetes- Primary Other abnormal glucose Essential (primary) hypertension Unspecified essential hypertension Mixed hyperlipidemia Mixed hyperlipidemia FUENTES (generalized anxiety disorder)- Primary Generalized anxiety disorder Convulsions, unspecified convulsion type (HCC) Essential (primary) hypertension Unspecified essential hypertension Mixed hyperlipidemia Mixed hyperlipidemia Prediabetes Other abnormal glucose Essential (primary) hypertension- Primary Unspecified essential hypertension Type 2 diabetes mellitus with diabetic chronic kidney disease (HCC) Essential (hemorrhagic) thrombocythemia (HCC) Seizure (HCC) Other convulsions Restless leg syndrome Restless legs syndrome (RLS) Age-related osteoporosis without current pathological fracture Fibromyalgia, primary Anxiety Anxiety state, unspecified Current episode of major depressive disorder without prior episode, unspecified depression episode severity FUENTES (generalized anxiety disorder) Generalized anxiety disorder Mixed hyperlipidemia Mixed hyperlipidemia Nicotine dependence, cigarettes, uncomplicated Type 2 diabetes mellitus with stage 3a chronic kidney disease, without long-term current use of insulin (HCC)- Primary Essential (primary) hypertension Unspecified essential hypertension FUENTES (generalized anxiety disorder) Generalized anxiety disorder Lumbar back pain Lumbago Current episode of major depressive disorder without prior episode, unspecified depression episode severity Nicotine dependence, cigarettes, uncomplicated UTI symptoms Convulsions, unspecified convulsion type (HCC) Essential (primary) hypertension- Primary Unspecified essential hypertension Other chronic pain Fibromyalgia, primary Type 2 diabetes mellitus with stage 3a chronic kidney disease, without long-term current use of insulin (HCC) Nicotine dependence, cigarettes, uncomplicated FUENTES (generalized anxiety disorder) Generalized anxiety disorder Restless leg syndrome Restless legs syndrome (RLS) Lumbar back pain Lumbago documented in this encounter [facility]* Diagnosis Essential (primary) hypertension- Primary Unspecified essential hypertension Mixed hyperlipidemia Mixed hyperlipidemia Nicotine dependence, cigarettes, uncomplicated Cerebrovascular accident (CVA), unspecified mechanism (HCC) Prediabetes- Primary Other abnormal glucose Essential (primary) hypertension Unspecified essential hypertension Mixed hyperlipidemia Mixed hyperlipidemia FUENTES (generalized anxiety disorder)- Primary Generalized anxiety disorder Convulsions, unspecified convulsion type (HCC) Essential (primary) hypertension Unspecified essential hypertension Mixed hyperlipidemia Mixed hyperlipidemia Prediabetes Other abnormal glucose Essential (primary) hypertension- Primary Unspecified essential hypertension Type 2 diabetes mellitus with diabetic chronic kidney disease (HCC) Essential (hemorrhagic) thrombocythemia (HCC) Seizure (HCC) Other convulsions Restless leg syndrome Restless legs syndrome (RLS) Age-related osteoporosis without current pathological fracture Fibromyalgia, primary Anxiety Anxiety state, unspecified Current episode of major depressive disorder without prior episode, unspecified depression episode severity FUENTES (generalized anxiety disorder) Generalized anxiety disorder Mixed hyperlipidemia Mixed hyperlipidemia Nicotine dependence, cigarettes, uncomplicated Type 2 diabetes mellitus with stage 3a chronic kidney disease, without long-term current use of insulin (HCC)- Primary Essential (primary) hypertension Unspecified essential hypertension FUENTES (generalized anxiety disorder) Generalized anxiety disorder Lumbar back pain Lumbago Current episode of major depressive disorder without prior episode, unspecified depression episode severity Nicotine dependence, cigarettes, uncomplicated UTI symptoms Convulsions, unspecified convulsion type (HCC) Essential (primary) hypertension- Primary Unspecified essential hypertension Other chronic pain Fibromyalgia, primary Type 2 diabetes mellitus with stage 3a chronic kidney disease, without long-term current use of insulin (HCC) Nicotine dependence, cigarettes, uncomplicated FUENTES (generalized anxiety disorder) Generalized anxiety disorder Restless leg syndrome Restless legs syndrome (RLS) Lumbar back pain Lumbago Convulsions, unspecified convulsion type (HCC) documented in this encounter [facility]* Diagnosis Onset Date Resolution Status Admit Date Essential (primary) hypertension acute August 07 1:10pm Fibromyalgia, primary acute Oct benito 2024 1:10pm FUENTES (generalized anxiety disorder) acute August [...] UTI symptoms acute August 07, 2025 1:10pm [facility] Work Phone: History general Narrative - Reported* Type Description Date [...] HAND RECONSTRUCTION Hospitalization History SEE SURGICAL HX [facility] Discharge instructionsAmbulatory Orders* Referral to Neurology Time Frame: 02/13/24, Location: None [facility] Work Phone: InstructionsNot on filedocumented in this encounter [facility]ructionsNot on filedocumented in this encounter [facility] SystemReason for referral (narrative)No reason for referral information availableUk [facility] Work Phone: Summary Purpose Family History Relationship Condition Age at Onset Recorded Date/T sam father Unknown Not Specified Unknown Relationship Condition Age at Onset Recorded Date/T sam father Unknown mother Unknown Advance Directives Advance Directive Response Recorded Date/ Time Advance Directives No February 12 10:17am Date Activated Date Inactivated Comments 04/06/2021 3:19 AM 04/10/2021 6:20 PM Reason for Referral Reason Needs colonosco py - had imaging in [facility] ER. Diagnosis 1 LLQ abdominal pain ( R10.32) Referral Organization [facility] santa Referring Provider First Name Robert Referring Provider Last Name Efren Referring Provider Specialty Family [facility] Referred Organization [facility] Referred Provider Flakito Stevenson Referred Address [address] [place], [place],[address] Referred Provider Specialty General Surg hunter Referral Priority Routine General Notes Maida Dave 02:01:18 PM >received today, attachments made, waiting for notes to be locked Chief Complaint and Reason for Visit Chief Complaint Amb Documentation Amb Documentation [facility] d/c Reason for Visit Seizure Stroke Chief Complaint Admit Date 1M August 07, 2025 1: 10pm Reason for [...] UTI symptoms August 07, 2025 1: 10pm Additional Source Comments REASON FOR VISIT (unrecogniz [...] Reason Onset Date Comments Med Refill 12/17/2024 Reason Comments Follow-up Reason Onset Date Comments Med Refill 01/13/2025 Reason Onset Date Comments Med Refill 02/19/2025 Reason Onset Date Comments Med Refill 02/24/2025 Reason Comments FUENTES Reason Comments Diabetes Reason Onset Date Comments Med Refill 05/12/2025 Reason Comments Med Refill INFORMATION SOURCE (unrecogn ized section and content) DATE CREATED AUTHOR 02/18/2023 [facility] DATE CREATED AUTHOR AUTHOR'S ORGANIZ ATION 02/13/2024 [facility] DATE CREATED AUTHOR AUTHOR'S ORGANIZ ATION 03/24/2024 [facility] DATE CREATED AUTHOR AUTHOR'S ORGANIZ ATION 03/28/2024 [facility] DATE CREATED AUTHOR AUTHOR'S ORGANIZ ATION 04/03/2024 [facility] DATE CREATED AUTHOR AUTHOR'S ORGANIZ ATION 09/30/2024 [facility] DATE CREATED AUTHOR AUTHOR'S ORGANIZ ATION 06/13/[address] [facility] EPIC Care Teams (unrecognized sec tion and content) Team Status: Active Member Role Status Dates Robert Schwartz MD Primary Care Provider Active Team Status: Active Member Role Status Dates Robert Schwartz MD Primary Care Provider Active Start: December 22, 2023 ANNABEL Vann Attending Provider Active Start : December 22, 2023 Team Status: Active Member Role Status Dates Robert Schwartz MD Primary Care Provider Active Start: January 15, 2024 ANNABEL Vann Attending Provider Active Start : January 15, 2024 Team Status: Active Member Role Status Dates Robert Schwartz MD Primary Care Provide r, Attending Provider Active Start: February 08, 2024 Team Status: Active Member Role Status Dates Robert Schwartz MD Primary Care Provide r, Attending Provider Active Start: February 09, 2024 Team Status: Inactive Member Role Status Dates Robert Schwartz MD Primary Care Provide r, Attending Provider Active Start: February 13, 2024 End: February 13, 2024 Risk Control Officer Relationship Specialty Start Date End Date Robert Schwartz MD [address] [place] [address] PCP - General Family Medicine 03/25/24 Risk Control Officer Relationship Specialty Start Date End Date Robert Schwartz MD [address] [place] [address] PCP - General Family Medicine 03/25/24 Risk Control Officer Relationship Specialty Start Date End Date Ethan Bonilla MD [address] [place] [phone] PCP - General Family Medicine 08/15/24 Andrew Church NP [address] [place] [address] Nurse Practitioner Family Medicine 08/15/24 Risk Control Officer Relationship Specialty Start Date End Date Ethan Bonilla MD [address] [place] [phone] PCP - General Family Medicine 08/15/24 Andrew Church NP [address] [place] [phone] Nurse Practitioner Family Medicine 08/15/24 Risk Control Officer Relationship Specialty Start Date End Date Ethan Bonilla MD [address] [place] [address] PCP - General Family Medicine 08/15/24 Andrew Church NP [address] [place] [address] Nurse Practitioner Family Medicine 08/15/24 Risk Control Officer Relationship Specialty Start Date End Date Ethan Bonilla MD [address] [place] [address] PCP - General Family Medicine 08/15/24 Andrew Church NP [address] [place] [address] Nurse Practitioner Family Medicine 08/15/24 Risk Control Officer Relationship Specialty Start Date End Date Ethan Bonilla MD [address] [place] [address] PCP - General Family Medicine 08/15/24 Andrew Church NP [address] [place] [address] Nurse Practitioner Family Medicine 08/15/24 Risk Control Officer Relationship Specialty Start Date End Date Robert Schwartz MD [address] [facility] [place] [phone] PCP - General Family Medicine 03/25/24 Risk Control Officer Relationship Specialty Start Date End Date Ethan Bonilla MD [address] [place] [phone] PCP - General Family Medicine 08/15/24 Andrew Church NP [address] [place] [address] Nurse Practitioner Family Medicine 08/15/24 Risk Control Officer Relationship Specialty Start Date End Date Robert Schwartz MD [address] [facility] [place] [address] PCP - General Family Medicine 03/25/24 Risk Control Officer Relationship Specialty Start Date End Date Ethan Bonilla MD [address] [place] [phone] PCP - General Family Medicine 08/15/24 Andrew Church NP [address] [place] [address] Nurse Practitioner Family Medicine 08/15/24 Risk Control Officer Relationship Specialty Start Date End Date Ethan Bonilla MD [address] [place] [phone] PCP - General Family Medicine 08/15/24 Andrew Church NP [address] [place] [address] Nurse Practitioner Family Medicine 08/15/24 Risk Control Officer Relationship Specialty Start Date End Date Saira Campbell DO [address] [facility], [place], [place] [phone] PCP - General 12/28/17 Risk Control Officer Relationship Specialty Start Date End Date Saira Campbell DO [address] [place] [address], # [place] [address] PCP - General 12/28/17 Risk Control Officer Relationship Specialty Start Date End Date Ethan Bonilla MD [address] [place] [address] PCP - General Family Medicine 08/15/24 Andrew Church NP [address] [place] [phone] Nurse Practitioner Family Medicine 08/15/24 Risk Control Officer Relationship Specialty Start Date End Date Ethan Bonilla MD [address] [place] [phone] PCP - General Family Medicine 08/15/24 Andrew Church NP [address] [place] [phone] Nurse Practitioner Family Medicine 08/15/24 Risk Control Officer Relationship Specialty Start Date End Date Ethan Bonilla MD [address] [place] [address] PCP - General Family Medicine 08/15/24 Andrew Church NP [address] [place] [phone] Nurse Practitioner Family Medicine 08/15/24 Risk Control Officer Relationship Specialty Start Date End Date Ethan Bonilla MD [address] [place] [address] PCP - General Family Medicine 08/15/24 Andrew Church NP [address] [place] [phone] Nurse Practitioner Family Medicine 08/15/24 Risk Control Officer Relationship Specialty Start Date End Date Ethan Bonilla MD [address] [place] [phone] PCP - General Family Medicine 08/15/24 Andrew Church NP [address] [place] [phone] Nurse Practitioner Family Medicine 08/15/24 Risk Control Officer Relationship Specialty Start Date End Date Ethan Bonilla MD [address] [place] [phone] PCP - General Family Medicine 08/15/24 Andrew Church NP [address] [place] [phone] Nurse Practitioner Family Medicine 08/15/24 Risk Control Officer Relationship Specialty Start Date End Date Ethan Bonilla MD [address] [place] [phone] PCP - General Family Medicine 08/15/24 Andrew Church NP [address] [place] [phone] Nurse Practitioner Family Medicine 08/15/24 Risk Control Officer Relationship Specialty Start Date End Date Ethan Bonilla MD [address] [place] [phone] PCP - General Family Medicine 08/15/24 Andrew Church NP [address] [place] [phone] Nurse Practitioner Family Medicine 08/15/24 Risk Control Officer Relationship Specialty Start Date End Date Ethan Bonilla MD [address] [place] [phone] PCP - General Family Medicine 08/15/24 Andrew Church NP [address] [place] [phone] Nurse Practitioner Family Medicine 08/15/24 Risk Control Officer Relationship Specialty Start Date End Date Ethan Bonilla MD [address] [place] [phone] PCP - General Family Medicine 08/15/24 Andrew Church NP [address] [place] [phone] Nurse Practitioner Family Medicine 08/15/24 Risk Control Officer Relationship Specialty Start Date End Date Ethan Bonilla MD [address] [place] [phone] PCP - General Family Medicine 08/15/24 Andrew Church NP [address] [place] [phone] Nurse Practitioner Family Medicine 08/15/24 Risk Control Officer Relationship Specialty Start Date End Date Ethan Bonilla MD [address] [place] [phone] PCP - General Family Medicine 08/15/24 Andrew Church NP [address] [place] [phone] Nurse Practitioner Family Medicine 08/15/24 Risk Control Officer Relationship Specialty Start Date End Date Ethan Bonilla MD [address] [place] [phone] PCP - General Family Medicine 08/15/24 Andrew Church NP [address] [place] [phone] Nurse Practitioner Family Medicine 08/15/24 Risk Control Officer Relationship Specialty Start Date End Date Ethan Bonilla MD [address] [place] [phone] PCP - General Family Medicine 08/15/24 Andrew Church NP [address] [place] [phone] Nurse Practitioner Family Medicine 08/15/24 Risk Control Officer Relationship Specialty Start Date End Date Ethan Bonilla MD [address] [place] [phone] PCP - General Family Medicine 08/15/24 Andrew Church NP [address] [place] [phone] Nurse Practitioner Family Medicine 08/15/24 Risk Control Officer Relationship Specialty Start Date End Date Ethan Bonilla MD [address] [place] [phone] PCP - General Family Medicine 08/15/24 Andrew Church NP [address] [place] [address] Nurse Practitioner Family Medicine 08/15/24 Team Status: Active Member Role Status Dates YOLANDA Miller Primary Care Provider Active Team Status: Inactive Member Role Status Dates YOLANDA Miller Primary Care Provider Active Start: August 07, 2025 End: August 07, 2025 YOLANDA Miller Attending Provider Active Start: August 07, 2025 End: August 07, 2025 Goals (unrecognized section and content) Goals may [...] BE BASED ON THE PRIMARY CLINICAL RECORDS. [facility] [employer] [facility]. provides no warranty or guarantee of the accuracy or completeness of information in this document."
--- OUTSIDE RECORDS SUMMARY | 2025-08-09 13:54 | XMS_ITS | Clinical Summary ---
Author Organization [facility] Address [address] [place] [address] Care Team Providers Care Auto Damage Estimator Name Role Phone Olga Holloway MD Primary Care Provider [phone] Allergies Active Allergy Reactions Criticality Noted Date Comments Nickel Other,Unknown 02/13/2024 Penicillins Hives,Rash,Other Low 04/07/2021 Phenobarbital Other,Rash Low 04/07/2021 Phenytoin Other,Rash,Unknown Low 04/07/2021 Zinc Hives 02/13/2024 Medications atorvastatin (Lipitor) 80 mg tablet Take 80 mg by mouth at bedtime. 03/25/2024 Active aspirin 325 mg EC tablet Take 325 mg by mouth in the morning. 03/07/2024 Active levETIRAcetam (Keppra) 500 mg tablet Take 1 tablet by mouth twice a day. 04/10/2021 Active rOPINIRole (Requip) 0.5 mg tablet Take 0.5 mg by mouth. Active Active Problems Problem Noted Date Diagnosed Date Anxiety 04/02/2024 Arthritis 04/02/2024 B12 deficiency 04/02/2024 Current episode of major dep ressive disorder without prior episode 04/02/2024 Eczema 04/02/2024 Essential (primary) hypertension 04/02/2024 Fibromyalgia, primary 04/02/2024 FUENTES (generalized anxiety disorder) 04/02/2024 GERD (gastroesophageal reflux disease) Glaucoma 04/02/2024 Hyperlipidemia, unspecified 04/02/2024 Insomnia, unspecified 04/02/2024 Left carpal tunnel syndrome 04/02/2024 Lumbar back pain 04/02/2024 Migraine 04/02/2024 Nicotine dependence, cigarettes, uncomplicated 0 04/02/2024 Restless leg syndrome 04/02/2024 Aphasia 03/21/2024 Seizure 03/21/2024 Stroke 03/21/2024 Chronic narcotic use 04/08/2021 Cigarette smoker 04/08/2021 Drug-induced acute pancreati tis without infection or necrosis 04/08/2021 Epigastric pain 04/08/2021 Age-related osteoporosis wit hout current pathological fracture 09/03/2018 Epilepsy, unspecified, not i ntractable, without status epilepticus 09/03/2018 Social History Tobacco Use Types Packs/Day Years Used Date Smoking Tobacco: Every Day Cigarettes Smokeless Tobacco: Never Alcohol Use Standard Drinks/Week Comments Not Currently 0 (1 standard drink = 0.6 oz pur e alcohol) [place] Safety & Environment Answer Date Rec orded Fear of Current or Ex-Partner Not on file Emotionally Abused Not on file 02/20/2024 Physically Abused Not on file 02/20/2024 Sexually Abused Not on file 02/20/2024 Physically or Sexually Abused Not on file Comments Unknown Sex and Gender Information Value Date Recorded Sex Assigned at Not on file Legal Sex Female 9:26 AM EDT Gender Identity Not on file Sexual Orientation Not on file Last Filed Vital Signs Vital Sign Reading Time Taken Comments Blood Pressure 136/70 04/02/2024 2:05 PM EDT Pulse 53 04/02/2024 2:05 PM EDT Temperature - - Respiratory Rate - - Oxygen Saturation 96% 04/02/2024 2:05 PM EDT Inhaled Oxygen Concentration - - Weight 56.7 kg (125 lb) 04/02/2024 2:05 PM EDT Height 162.6 cm (5' 4 ) 04/02/2024 2:05 PM EDT Body Mass Index 21.46 04/02/2024 2:05 PM EDT Plan of Treatment Health Maintenance Due Date Last Done Comments Medicare Annual Wellness (AWV) 1950 Depression Screening 1960 Adult Tetanus 1970 Zoster Vaccines (1 of 2) 1998 Fall Risk Screening 2013 Pneumococcal Vaccine: 50+ Years (2 of 2 - PCV) 11/12/2014 11/12/2013, 04/06/2008 COVID-19 Vaccine ( - season) 2025 Influenza Vaccine (#1) 2025 3, 08/10/2022, 08/11/2021, Additional history exists HIB Vaccines Aged Out No longer eligi ble based on patient's age to complete this topic HPV Vaccines Aged Out No longer eligi ble based on patient's age to complete this topic IPV Vaccines Aged Out No longer eligi ble based on patient's age to complete this topic Meningococcal B Vaccine Aged Out No l onger eligible based on patient's age to complete this topic Meningococcal Vaccine Aged Out No hellen dominga eligible based on patient's age to complete this topic Rotavirus Vaccines Aged Out No longer eligible based on patient's age to complete this topic Insurance [employer] MEDICARE ADVANTAGE MEDICAID [place] Care Teams Auto Damage Estimator Relationship Specialty Start Date End Date Olga Holloway MD [address] [facility] [address] PCP - General 04/02/24
--- OUTSIDE RECORDS SUMMARY | 2025-08-09 13:55 | XMS_ITS | Encounter Summary ---
Author Organization [facility] Address [facility] [id number] [address] [place] [address] Care Team Providers Care Call Center Support Representative Name Role Phone Rajendra Jc DO Primary Care Provider Matt park Reason for Visit * Reason Onset Date Comments Care Navigation 02/13/2024 Encounter Details Date Type Department Care Team (Late st Contact Info) Description 02/13/2024 Telephone [facility] [address] [place] [phone] Hailey Wang, YINA Care Navigation Social History Tobacco Use Types Packs/Day Years Used Date Smoking Tobacco: Every Day Cigarettes 1 55 Smokeless Tobacco: Never Alcohol Use Standard Drinks/Week Comments No 0 [...] on file documented as of this encounter Miscellaneous Notes * Telephone Encounter - Hailey Wang RN - 02/13/2024 12:58 PM EDT Contact Type: Direct contact - Phone call with patient - general Reason For Call: CN introduction Intervention: CN attempted to contact patient on both numbers listed on chart. Both numbers are no longer in service. * Telephone Encounter - Alena Palacios RN - 02/13/2024 12:58 PM EDT Images from the original note were not included. In media there is a demographics sheet from [place]. * Telephone Encounter - Hailey Wang RN - 02/13/2024 12:58 PM EDT Contact Type: Direct contact - Phone call with patient - general Reason For Call: CN introduction Intervention: CN attempted to contact patient on phone number listed on demographic sheet below. Noanswer and voicemail has not been set up. * Telephone Encounter - Hailey Wang RN - 02/13/2024 12:58 PM EDT Contact Type: Direct contact - Phone call with patient - general Reason For Call: CN introduction Intervention: CN's 2nd attempt to contact patient. No answer and voicemail has not been set up documented in this encounter Plan of Treatment Not on file documented as of this encounter Visit Diagnoses Not on filedocumented in this encounter Care Teams Call Center Support Representative Relationship Specialty Start Date End Date Rajendra Jc DO PCP - General 12/28/17 documented as of this encounter
--- OUTSIDE RECORDS SUMMARY | 2025-08-09 13:55 | XMS_ITS | Clinical Summary ---
Author Organization [facility] Address [address] [facility] [place] [address] Care Team Providers Care Line Closer Name Role Phone Ethan Bonilla MD Primary Care Provider [phone] Keira Church FOUNTAIN HELPER Unavailable [phone] Allergies Active Allergy Reactions Criticality Noted Date Comments Nickel Unknown 03/21/2024 Penicillin G Benzathine 03/21/2024 Penicillins Rash,Unknown Low 04/07/2021 Phenobarbital Rash,Unknown Low 04/07/2021 Phenytoin Unknown 03/21/2024 Phenytoin Sodium Extended Rash Low 04/07/2021 Zinc Acetate 03/21/2024 Medications hydroxyurea (Hydrea) 500 MG capsule Take 500 mg by mouth Daily. 4 Active latanoprost (Xalatan) 0.005 % ophthalmic solution INSTILL 1 DROP IN EACH EYE EVERY DAY AT BEDTIME 4 Active aspirin 325 MG EC tabletIndications:C erebrovascular accident (CVA), unspecified mechanism (HCC) Take 1 tablet (325 mg) by mouth Daily 30 tablet 1 4 Active dapagliflozin (Farxiga) 5 MGIndications:Type 2 diabetes mellitus with chronic kidney disease, without long-term current use of insulin, unspecified CKD stage (HCC) Take 1 tablet (5 mg) by mouth Daily 30 tablet 11 4 09/16/20 25 Active metoprolol tartrate (Lopressor) 25 MG tabletIndications:C erebrovascular accident (CVA), unspecified mechanism (HCC) TAKE 1 TABLET (25 MG) BY MOUTH IN THE MORNING AND BEFORE BEDTIME 180 tablet 1 5 Active atorvastatin (Lipitor) 80 MG tabletIndications:H yperlipidemia, unspecified hyperlipidemia type TAKE 1 TABLET BY MOUTH EVERY DAY 90 tablet 3 5 Active gabapentin (Neurontin) 300 MG capsuleIndications: Neuropathic Pain Take 1 capsule (300 mg) by mouth Daily Take 1 capsule (300 mg) by mouth Daily 30 capsule 2 5 Active lisinopril 10 MG tabletIndications:E ssential (primary) hypertension Take 1 tablet (10 mg) by mouth Daily 90 tablet 5 09/08/20 25 Active ALPRAZolam (Xanax) 0.5 MG tabletIndications:G AD (generalized anxiety disorder) Take 1 tablet (0.5 mg) by mouth 2 (two) times a day as needed for anxiety 60 tablet 1 5 Active rOPINIRole (Requip) 0.5 MG tabletIndications:R estless leg syndrome Take 1 tablet (0.5 mg) by mouth Daily 90 tablet 1 5 09/08/20 25 Active levETIRAcetam (Keppra) 500 MG tabletIndications:C onvulsions, unspecified convulsion type (HCC) TAKE 1 TABLET (500 MG) BY MOUTH IN THE MORNING AND BEFORE BEDTIME 180 tablet 5 Active oxyCODONE-acetamino phen (Percocet) 7.5-325 MG tabletIndications:L umbar back pain Take 1 tablet by mouth in the morning and 1 tablet before bedtime. 60 tablet 5 07/10/20 25 Active Problems Problem Noted Date Diagnosed Date UTI symptoms 04/10/2025 Assessment & Plan (04/10/2025 2:51 PM EDT): Will treat with macrobid Fu if not better Type 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 02/25/2025 Assessment & Plan (06/10/2025 6:44 AM EDT): Check blood sugars daily, notify if <70 [...] meds: asa, statin, farxiga, A1c: 5.8% 04/10/25 Assessment & Plan (04/10/2025 2:22 PM EDT): Check blood sugars daily, notify if <70 [...] meds: asa, statin, farxiga, A1c: 5.8% 04/10/25 Assessment & Plan (02/25/2025 5:24 PM EDT): Check blood sugars daily, notify if <70 [...] A1c: 5.8 on 12/20/24 Essential (hemorrhagic) thrombocythemia 02/26/20 Assessment & Plan (02/25/2025 6:56 AM EDT): Monitor labs periodically Arthritis of right glenohumeral joint 07/24/2024 Other chronic pain 07/24/2024 Assessment & Plan (06/10/2025 6:46 AM EDT): Is taking oxycodone 7.5mg BID prn for chronic pain Rupture of right rotator cuff 07/24/2024 Encounter for wellness examination 07/23/2024 Assessment & Plan (07/23/2024 9:24 PM EDT): I have reviewed Ht/Wt/BMI, I have reviewed [...] GOAL 6-8 hours of sleep per night. B12 deficiency 04/02/2024 Current episode of major dep ressive disorder without prior episode 04/02/2024 Assessment & Plan (04/10/2025 2:51 PM EDT): At last appt, we discussed if need for grief counseling, she will think about this Current meds: none Overall feels she is doing better Assessment & Plan (02/25/2025 5:24 PM EDT): PHQ 9=12 Current meds: none Discussed if need for grief counseling, she will think about this Eczema 04/02/2024 Essential (primary) hypertension 04/02/2024 Assessment & Plan (06/10/2025 1:38 PM EDT): Please check blood pressure daily and record DASH diet Limit caffeine Take medication as directed Contact office if chest pain, pressure, dizziness, shortness of breath, swelling legs Recommend slow position changes Current med: b raúl Add lisinopril Log book, rx for bp monitor Assessment & Plan (04/10/2025 6:59 AM EDT): Please check blood pressure daily and record DASH diet Limit caffeine Take medication as directed Contact office if chest pain, pressure, dizziness, shortness of breath, swelling legs Recommend slow position changes Current med: b raúl Assessment & Plan (02/25/2025 6:54 AM EDT): Please check blood pressure daily and record DASH diet Limit caffeine Take medication as directed Contact office if chest pain, pressure, dizziness, shortness of breath, swelling legs Recommend slow position changes Current med: b raúl Assessment & Plan (12/25/2024 2:16 PM EST): Currently taking Metoprolol 25mg Checks BP at home; Averages are 130's/70's. Denies orthostatic changes, dizziness, cough, shortness of breath, swelling in extremities. Continue current regimen. Given BP log, advised pt to record BP and bring log back with them to next visit. Assessment & Plan (09/24/2024 12:56 PM EST): Currently taking Metoprolol 25mg Checks BP at home; Averages are 130's/70's. Denies orthostatic changes, dizziness, cough, shortness of breath, swelling in extremities. Continue current regimen. Given BP log, advised pt to record BP and bring log back with them to next visit. Assessment & Plan (07/24/2024 6:47 PM EDT): Currently taking Metoprolol 25mg Checks BP at home; Averages are 130's/140's Denies orthostatic changes, dizziness, cough, shortness of breath, swelling in extremities. Continue current regimen. Given BP log, advised pt to record BP and bring log back with them to next visit. FUENTES (generalized anxiety disorder) 04/02/2024 Assessment & Plan (06/10/2025 6:45 AM EDT): Current meds: xanax, only takes PRN OARRS reviewed Med agreement signed 02/24/25 Assessment & Plan (04/10/2025 2:51 PM EDT): Current meds: xanax, only takes PRN OARRS reviewed Med agreement signed 02/24/25 Assessment & Plan (02/25/2025 5:25 PM EDT): Current meds: xanax FUENTES 7=11 OARRS reviewed Med agreement signed Assessment & Plan (12/25/2024 2:17 PM EST): States she has been taking Alprazolam 0.5 [...] Denies SI/HI. Will set patient up with [facility] Fibromyalgia, primary 04/02/2024 Assessment & Plan (06/10/2025 6:44 AM EDT): gabapentin Assessment & Plan (02/25/2025 5:23 PM EDT): gabapentin GERD (gastroesophageal reflux disease) Glaucoma 04/02/2024 Hyperlipidemia, unspecified 04/02/2024 Assessment & Plan (02/25/2025 6:57 AM EDT): On statin therapy Check labs yearly and prn dose kasines Assessment & Plan (12/25/2024 2:42 PM EST): Currently taking atorvastatin 80mg Denies any myalgias. Most recent Lipid Panel 08/2024- WNL Continue current regimen. Assessment & Plan (09/24/2024 12:57 PM EST): Currently taking atorvastatin 80mg Denies any myalgias. Continue current regimen. Assessment & Plan (07/24/2024 6:48 PM EDT): Currently taking Atorvastatin 80mg Denies any myalgias. Check Lipid Panel Continue current regimen. Insomnia, unspecified 04/02/2024 Left carpal tunnel syndrome 04/02/2024 Lumbar back pain 04/02/2024 Assessment & Plan (04/10/2025 2:52 PM EDT): Takes percocet 7.5 BID Recommend pain mgmt, she is asking to wait about 2 months Is working out social security etc Migraine 04/02/2024 Nicotine dependence, cigarettes, uncomplicated 0 04/02/2024 Assessment & Plan (06/10/2025 6:44 AM EDT): The patient has been advised of the risks of continued smoking: stroke, [place], all forms of cancer, lung disease, and . Options for quitting smoking include: cold turkey, hypnosis, acupuncture, nicotine replacement meds (gum, lozenges, and patches), Buproprion, and Varenicline. At this time pt is encouraged to evaluate their goals for wanting to quit smoking, and reach out to provider when ready to start this process Assessment & Plan (04/10/2025 7:04 AM EDT): The patient has been advised of the risks of continued smoking: stroke, [place], all forms of cancer, lung disease, and . Options for quitting smoking include: cold turkey, hypnosis, acupuncture, nicotine replacement meds (gum, lozenges, and patches), Buproprion, and Varenicline. At this time pt is encouraged to evaluate their goals for wanting to quit smoking, and reach out to provider when ready to start this process Assessment & Plan (02/25/2025 6:57 AM EDT): The patient has been advised of the risks of continued smoking: stroke, [place], all forms of cancer, lung disease, and . Options for quitting smoking include: cold turkey, hypnosis, acupuncture, nicotine replacement meds (gum, lozenges, and patches), Buproprion, and Varenicline. At this time pt is encouraged to evaluate their goals for wanting to quit smoking, and reach out to provider when ready to start this process Assessment & Plan (07/24/2024 6:51 PM EDT): Smoking cessation counseling provided. Restless leg syndrome 04/02/2024 Assessment & Plan (02/25/2025 6:54 AM EDT): Is currently taking ropinirole Stroke 03/21/2024 Assessment & Plan (07/24/2024 6:48 PM EDT): Had CVA in 02/[address] Barber and Dr. Johnson Cardiolgy Aphasia 03/21/2024 Seizure 03/21/2024 Assessment & Plan (02/25/2025 6:53 AM EDT): Current meds: keppra BID does follow with Neurology Drug-induced acute pancreati tis without infection or necrosis ([facility]-H[facility]) 04/08/2021 Age-related osteoporosis wit hout current pathological fracture 09/03/2018 Resolved Problems Problem Noted Date Diagnosed Date Resolved Date Type 2 diabetes mellitus wit h chronic kidney disease, without long-term current use of insulin 09/23/2024 12/25/2024 Assessment & Plan (09/24/2024 12:58 PM EST): Prediabetes 09/23/2024 02/25/2025 Assessment & Plan (12/25/2024 2:17 PM EST): A1C 5.8% Currently taking Farxiga 5mg Last Eye Exam done 6 months ago- @ [place], [place] Assessment & Plan (09/24/2024 12:58 PM EST): A1C 6.1% Currently taking Farxiga 5mg Last Eye Exam done 6 months ago- @ [place], [place] Aftercare following joint replacement surgery 07/24/20 24 02/25/2025 Presence of right artificial shoulder joint 07/24/2024 02/25/2025 Anxiety 04/02/2024 02/25/2025 Unspecified convulsions 03/21/2024 04/2 12/2024 Encounters Date Type Department Care Team Description 07/06/2025 Refill [facility] [address] [place] [place] [address] Magdalene Goodrich NP Convulsions, unspecified convulsion type (HCC) 06/10/2025 1:00 PM EDT Office Visit [facility] [address] [place] [address] Magdalene Goodrich NP Essential (primary) hypertension (Primary Dx); Other chronic pain; Fibromyalgia, primary; Type 2 diabetes mellitus with stage 3a chronic kidney disease, without long-term current use of insulin (HCC); Nicotine dependence, cigarettes, uncomplicated; FUENTES (generalized anxiety disorder) ; Restless leg syndrome; Lumbar back pain 06/10/2025 Abstract [facility] [address] [place] [address] Magdalene Goodrich NP 06/10/2025 Bamboo flowsheet [facility] [address] [place] [id number] Magdalene Goodrich NP 05/30/2025 Clinisync Result Encounter [facility] Department Unsolicited Provider, Generic External Data 05/17/2025 Refill [facility] [address] [place] [address] Magdalene Goodrich NP Restless leg syndrome 05/12/2025 [facility]ill [facility] [address] [place] [address] Magdalene Goodrich NP 05/12/2025 Telephone [facility] [address] [place] [place] [address] Magdalene Goodrich NP 05/12/2025 [facility] [address] [place] [address] Magdalene Goodrich, MICHELLE Lumbar back pain; FUENTES (generalized anxiety disorder) from Last 3 Months Immunizations Immunization Administration Dates Next Due Influenza, High Dose Seasonal, Preservative Free 07/20/2020,07/13/2018 Influenza, High-dose Seasona l, Quadrivalent, Preservative Free 08/10/2022,08/11/2021 Influenza, Seasonal, Quadrivalent, Adjuvanted Influenza, seasonal, injectable 08/19/2024 Influenza, trivalent, adjuvanted 07/25/2019 Novel [id number], preservative-free 10/23 Pneumococcal Polysaccharide PPSV23 11/12/2013, Unknown outside immunization 07/16/2020 Family History Medical History Relation Name Comments Heart attack Brother Hypertension Brother No Known Problems Father Diabetes Maternal Grandmother Cancer Mother Diabetes Mother Relation Name Status Comments Brother Father Maternal Grandmother Mother Social History Tobacco Use Types Packs/Day Years Used Date Smoking Tobacco: Every Day Cigarettes Passive Smoke Exposure: Current Tobacco Cessation:Ready to Q uit: Not Asked; Counseling Given: Not Answered Alcohol Use Standard Drinks/Week Comments Never 0 [...] Sign Reading Time Taken Comments Blood Pressure 144/88 06/10/2025 1:03 PM EDT Pulse 56 06/10/2025 1:03 PM EDT Temperature 36.7 C (98.1 F) 06/10/2025 1:03 PM EDT Respiratory Rate 18 06/10/2025 1:03 PM EDT Oxygen Saturation 95% 06/10/2025 1:03 PM EDT Inhaled Oxygen Concentration - - Weight 63.5 kg (140 lb) 06/10/2025 1:03 PM EDT Height 162.6 cm (5' 4 ) 12/25/2024 1:52 PM EST Body Mass Index 24.03 12/25/2024 1:52 PM EST Plan of Treatment Not on file Procedures Procedure Name Priority Date/Time Associated Diagnosis Comments VITAMIN B12 Routine 05/30/2025 2:18 PM EDT ALL FOLIC ACID Routine 05/30/2025 2:18 PM EDT [facility] FERRITIN Routine 05/30/2025 2:18 PM EDT METRO IRON AND TIBC Routine 05/30/2025 2 :18 PM EDT ALL BASIC METABOLIC PANEL Routine 05/30/2025 2:18 PM EDT ALL CBC WITH AUTO DIFF Routine 05/30/2025 2:18 PM EDT from Last 3 Months Results * VITAMIN B12 (05/30/2025 2:18 PM EDT) VITAMIN B12 738 232 - 1245 pg/mL [facility] Comment: Performed at: - [facility] [id number] Medicare Nurse: Sylvain Ralph PhD, Phone: [phone] 05/30/2025 2:18 PM EDT 05/30/2025 2:21 PM EDT Narrative [facility] - 05/31/2025 5:07 AM EDT us Generic External Data Provider LAB BLOOD ORDERAB LES Final Result [facility] * METRO IRON AND TIBC (05/30/2025 2:18 PM EDT) [facility] IRON 77.0 50.0 - 170.0 ug/dL [facility] TOTAL IRON BINDING CAPACITY 332.0 250.0 - 450.0 ug/dL TBH [facility] PERCENT IRON SATURATION 23.2 % [facility] 05/30/2025 2:18 PM EDT 05/30/2025 2:21 PM EDT Narrative [facility] - 05/30/2025 3:35 PM EDT Generic External Data Provider [facility] F inal Result [facility] * [facility] FERRITIN (05/30/2025 2:18 PM EDT) FERRITIN 95.0 8.0 - 252.0 ng/mL [facility] 05/30/2025 2:18 PM EDT 05/30/2025 2:21 PM EDT Narrative [facility] - 05/30/2025 4:29 PM EDT Generic External Data Provider [facility] F inal Result Performing Organization Address City/[facility]/ZIP Co de Phone Number [facility] TB * ALL FOLIC ACID (05/30/2025 2:18 PM EDT) FOLATE 16.40 8.60 - 58.90 ng/mL [facility] 05/30/2025 2:18 PM EDT 05/30/2025 2:21 PM EDT Narrative [facility] - 05/30/2025 4:29 PM EDT Generic External Data Provider [facility] F inal Result Performing Organization Address City/[facility]/ZIP Co de Phone Number [facility] TB * (ABNORMAL) ALL CBC WITH AUTO DIFF (05/30/2025 2:18 PM EDT) [facility] WBC 6.2 4.0 - 11.0 10 3/uL TB[facility] TBH RBC 4.59 4.20 - 5.40 10 6/uL TB[facility] TBH HGB 16.0 12.0 - 16.0 g/dL TBH TBH HCT 48.0 36.0 - 48.0 % TBH TBH MCV 104.6(H) 81.0 - 99.0 fL TBH TBH MCH 34.9(H) 26.7 - 34.0 pg TBH TBH MCHC 33.3 29.9 - 35.2 g/dL TBH TBH RDW 13.4 11.0 - 15.0 % TBH TBH PLT 355 150 - 450 10 3/uL TBH TBH MPV 10.8 9.5 - 13.5 fL TBH NEUTROPHILS PERCENT AUTO 55.9 43.0 - 75.0 % TBH LYMPHOCYTES PERCENT AUTO 32.4 20.5 - 60.0 % TBH MONOCYTES PERCENT AUTO 8.2 1.7 - 12.0 % TBH TBH EO % 2.7 0.9 - 7.0 % TBH BASOPHILS PERCENT AUTO 0.5 0.2 - 2.0 % TB[facility] IMMATURE GRANULOCYTES PCT AUTO 0.3 0.0 - 0.5 % TB[facility] NEUTROPHILS ABSOLUTE AUTO 3.5 1.4 - 6.5 10 3/uL TB[facility] LYMPHOCYTES ABSOLUTE AUTO 2.0 1.2 - 3.8 10 3/uL TB[facility] MONOCYTES ABSOLUTE AUTO 0.5 0.3 - 0.8 10 3/uL TBH TBH EO # 0.2 0.0 - 0.7 10 3/uL TBH BASOPHILS ABSOLUTE AUTO 0.0 0.0 - 0.1 10 3/uL TB[facility] IMMATURE GRANULOCYTES ABS AUTO 0.02 0.00 - 0.03 10 3/uL [facility] 05/30/2025 2:18 PM EDT 05/30/2025 2:21 PM EDT Narrative [facility] - 05/30/2025 2:32 PM EDT us Generic External Data Provider [facility] * ALL BASIC METABOLIC PANEL (05/30/2025 2:18 PM EDT) SODIUM 140 136 - 145 mmol/L TBH POTASSIUM 4.7 3.5 - 5.1 mmol/L TB[facility] CHLORIDE 103 98 - 107 mmol/L TBH CARBON DIOXIDE 28.2 21.0 - 32.0 mmol/L TB[facility] ANION GAP 13.5 TBH GLUCOSE 93 74 - 106 mg/dL TB[facility] BLOOD UREA NITROGEN 18.0 7.0 - 18.0 mg/dL TB[facility] CREATININE 0.84 0.55 - 1.02 mg/dL TBH TBH EGFR-AF PALESTINIAN >60 >=60 mL/min/1.7 3m 2 TBH TBH EGFR-NON AF PALESTINIAN >60 >=60 mL/min/1.7 3m 2 TBH BUN CREATININE RATIO 21.4 TBH CALCIUM 9.1 8.5 - 10.1 mg/dL [facility] 05/30/2025 2:18 PM EDT 05/30/2025 2:21 PM EDT Narrative [facility] - 05/30/2025 3:35 PM EDT us Generic External Data Provider [facility] F inal Result [facility] TB from Last 3 Months Insurance , [address] [address] [employer] MEDICAID [place] Care Teams Line Closer Relationship Specialty Start Date End Date Ethan Bonilla MD PCP - General Family Medicine 08/15/24 Keira Church NP Nurse Practitioner Family Medicine 08/15/24
--- OUTSIDE RECORDS SUMMARY | 2025-08-09 13:55 | XMS_ITS | Encounter Summary ---
Author Organization [facility] Address [address] [place] [address] Care Team Providers Care Human Services Case Manager Name Role Phone Ethan Bonilla MD Primary Care Provider [phone] Keira Church CDL PROGRAM COORDINATOR Unavailable [phone] Encounter Details Date Type Department Care Team (Late st Contact Info) Description 06/10/2025 Abstract [facility] [address] [place] [address] Magdalene Goodrich NP [address] [place] [place] [address] Social History Tobacco Use Types Packs/Day Years [...] documented as of this encounter Care Teams Human Services Case Manager Relationship Specialty Start Date End Date Ethan Bonilla MD PCP - General Family Medicine 08/15/24 Keira Church NP Nurse Practitioner Family Medicine 08/15/24 documented as of this encounter
--- OUTSIDE RECORDS SUMMARY | 2025-08-09 13:55 | XMS_ITS | Patient Health Record ---
Author Organization [facility] Address [address] [place] [address] Care Team Providers Care Junior Programmer Analyst Name Role Phone Olga Holloway M.D. Primary Care Provider Unavail able Ashutosh Chino Unavailable [phone] Vincent Mckee DO Unavailable Unavailable Allergies Allergen (clinical drug ingredient) Drug/Non Drug Allergy documented on EMR Reaction Allergy Type Onset Date Status phenobarbital phenobarbital Unknown Drug Allergy Active Penicillin Unknown Drug Allergy Active nickel Unknown Drug Allergy Active perla Unknown Drug Allergy Active Reason For Referral No Information Medications Medication SIG (Take, Route, Fr equency, Duration) Notes Start Date End Date Status Percocet Active lisinopril Active Depakote (obsolete) Active DULoxetine Active latanoprost ophthalmic Active nabumetone Active Metoprolol Tartrate Active oxyBUTYnin Active ALPRAZolam Active simvastatin Active rOPINIRole Active Social History Tobacco Use: Social History Observation Description Date Details (start date - stop date) Current Smoker NA - NA Smoking History Question Answer Notes Smoking Status Current Smoker Problems Problem Type SNOMED Code ICD Code Onset Dates Problem Status W/U Status Risk Notes Problem 843720159 Aftercare following joint replacement surgery (Z47.1) Active confirmed Problem Disorder of joint of right shoulder region (disorder) (71179021746997705 ) Other specific arthropathies, not elsewhere classified, right shoulder (M12.811) Active confirmed Problem Rupture of right rotator cuff (77402397830741351 ) Unspecified rotator cuff tear or rupture of right shoulder, not specified as traumatic (M75.101) Active confirmed Problem 098827261 Presence of righ t artificial shoulder joint (Z96.611) Active confirmed Problem 878552006606703 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) Active confirmed Problem Bicipital tenosynovitis (51344106) Biceps tendinitis of right shoulder (M75.21) Active confirmed Plan Of Treatment No Information Insurance Providers Payer Name Payer Address Payer Phone Subscriber Number Group Number Insured Name Patient Relationship to Insured Coverage Start Date Coverage End Date Medicare [employer] [address] [place] [address] [id number] [facility] MATEO MANSFIELD Self - patient is the insured [facility] of Medicaid [address] [place] [address] [id number] MATEO MANSFIELD Self - patient is the insured Medical (General) History Medical History History ICD Code Asthma/COPD No, Respiratory problems: No, Lung Disease: No, Cancer No, Problems with Anesthesia No, Malignant Hyperthermia: No, Heart Attack: No, Heart problems: No, Hypothyroidism: No, Seizures: Yes, Diabetes No, GI Problems: No, Stroke: No, Blood Clots: No, High Blood Pressure: Yes, Depression Yes, Mental Illness: No, Anxiety: Yes, Have you ever had or presently have MRSA ? No, Hepatitis: No, Have you been in close conta ct with someone who has had MRSA within the last year? No, Pacemaker or AICD No Latex Allergy No, Drug Allergies: Yes, Are you a healthcare worker? No, Surgical History Surgery Date(Month/Year) Right reverse total shoulder replacement 09/19/2019 Neck 2010 Right hand arthroplasty 2007 Right Hand Reconstruction 2004 Polypectomy 2004 Hysterectomy 1998 Left ankle 1984
--- OUTSIDE RECORDS SUMMARY | 2025-08-09 13:55 | XMS_ITS | Encounter Summary ---
Author Organization [facility] Address [id number] [address] [place] [address] Care Team Providers Care Floral Merchandiser Name Role Phone Rajendra Jc DO Primary Care Provider Matt park Encounter Details Date Type Department Care Team (Late st Contact Info) Description 04/06/2021 Orders Only [facility] [address] [place] [phone] Transcribe, Orders Support User Pain (Primary Dx) Social History Tobacco Use Types Packs/Day Years [...] on file Sexual Orientation Not on file COVID-19 Exposure Response Date Recorded In the last month, have you been in contact with someone who was confirmed or suspected to have Coronavirus / COVID-19? No / Unsure 04/06/2021 2:43 AM EDT documented as of this encounter Functional Status documented as of this encounter Plan of Treatment Not on file documented as of this encounter Results * CT abdomen and pelvis with contrast (04/05/2021 8:25 PM EDT) us Scanning Provider External IMG CT ORDERABLES Fin al Result documented in this encounter Visit Diagnoses Diagnosis Pain- Primary Generalized pain documented in this encounter Care Teams Floral Merchandiser Relationship Specialty Start Date End Date Rajendra Jc DO PCP - General 12/28/17 documented as of this encounter
--- OUTSIDE RECORDS SUMMARY | 2025-08-09 13:55 | XMS_ITS | Encounter Summary ---
Author Organization [facility] Sys tem Address [facility] [id number] [address] [place] [address] Care Team Providers Care Side Puller Name Role Phone Rajendra Jc DO Primary Care Provider Matt park Encounter Details Date Type Department Care Team ([facility] st Contact Info) Description 09/22/2024 Orders Only [facility] [employer] [facility] [place] [address] Transcribe, Orders Support User Pain (Primary [...] as of this encounter Results * CT brain without contrast stroke alert (09/21/2024 1:05 PM EST) us Scanning Provider External IMG CT ORDERABLES Fin al Result documented in this encounter Visit Diagnoses Diagnosis Pain- Primary Generalized pain documented in this encounter Care Teams Side Puller Relationship Specialty Start Date End Date Rajendra Jc DO PCP - General 12/28/17 documented as of this encounter
--- OUTSIDE RECORDS SUMMARY | 2025-08-15 06:40 | XMS_ITS | CCD ---
Author Organization [facility] Care Team Providers Care Yarn Comber Name Role Phone Robert Schwartz Unavailable Fernando Silverio Unavailable EFREN, DR ROBERT Rodriguez Admitting Unavailable SCHWARTZ, DR ROBERT Rodriguez Attending Unavailable SCHWARTZ, DR ROBERT Rodriguez Primary Care Unavailable WEST, DR CHAITANYA King Consulting Unavailable SCHWARTZ, DR ROBERT Rodriguez Consulting Unavailable CUETO, WICHO Consulting Unavailable SCHWARTZ, DR ROBERT Rodriguez Admitting Unavailable SCHWARTZ, DR ROBERT Rodriguez Attending Unavailable SCHWARTZ, DR ROBERT Rodriguez Primary Care Unavailable ZIEBJIMBO, DR RAIN Bloom Consulting Unavailable SCHWARTZ, DR ROBERT Rodriguez Consulting Unavailable SCHWARTZ, DR ROBERT Rodriguez Admitting Unavailable SCHWARTZ, DR ROBERT Rodriguez Attending Unavailable SCHWARTZ, DR ROBERT Rodriguez Primary Care Unavailable ZIEBER, DR RAIN Bloom Consulting Unavailable SCHWARTZ, DR ROBERT Rodriguez Consulting Unavailable BROWN, CHAITANYA Consulting Unavailable SCHWARTZ, DR ROBERT Rodriguez Admitting Unavailable SCHWARTZ, DR ROBERT Rodriguez Attending Unavailable SCHWARTZ, DR ROBERT Rodriguez Primary Care Unavailable BIRMINGHAM, DR CHAITANYA King Consulting Unavailable SCHWARTZ, DR ROBERT Rodriguez Consulting Unavailable CYNDIE FRANKEL Referring Unavailable SAIRA CAMPBELL Primary Care Unavailable Neto Hooper Attending DO Bob Andrew Referring Unava ilable JARON JOHNSON Attending Unavailable Robert Schwartz MD Primary Care Provider Ethan Bonilla MD Primary Care Provider Lynnette MARTINEZ, Andrew Unavailable [phone] SAIRA CAMPBELL Primary Care Unavailable SAIRA CAMPBELL Referring Unavailable SAIRA CAMPBELL Primary Care Unavailable SAIRA CAMPBELL Referring Unavailable SAIRA CAMPBELL Primary Care Unavailable Saira Campbell DO Primary Care Provider Andrew Church NP Unavailable ANDREW CHURCH Attending Unavailabl e AICHHOLKarthik, MAGDALENE Attending Unavailable AICHHOLKarthik, MAGDALENE Attending Unavailable AICAUSTYN, MAGDALENE Attending Unavailable ANDREW CHURCH Attending Unavailabl e ANDREW CHURCH Attending Unavailabl e ChauhholMagdalene Ling Primary Care Provider Magdalene Mendes Attending Provider [phone] Magdalene Goodrich Attending Unavailable Magdalene Goodrich Admitting Unavailable Allergies Allergy Classification Reported Allergen(s) Allergy Type Date of Onset Reaction(s) Facility (17 sources) nickel; Translations: [NICKEL] Drug Allergy 02-13-20 24 Unknown, [facility] (13 sources) Penicillin Drug Allergy Unknown [employer] Other (20 sources) PHENobarbital; Translations: [PHENOBARBITAL] Drug Allergy 04-07-20 21 Rash, [facility] (20 sources) Phenytoin; Translations: [PHENYTOIN] Drug Allergy 04-07-20 21 Unknown, Rash [facility] (17 sources) Zinc; Translations: [ZINC] Drug Allergy 02-13-20 Unknown, [facility] (1 source) benzoin resin Drug Allergy 09-25-20 14 [facility] (1 source) Leucine Drug Allergy [facility] (7 sources) Penicillins; Translations: [PENICILLINS] Drug allergy (disorder) 09-25-20 14 Hives [facility] (1 source) Phenytoin Drug Allergy 09-25-20 14 [facility] (8 sources) Allergies Reconciled Propensity to adverse reactions Unknown [employer] Other (8 sources) Penicillin G Benzathine & Proc Drug allergy Unknown [employer] Other (8 sources) PHENobarbital *HYPNOTICS/SEDAT ANN/SLEEP DISORDER Propensity to adverse reactions Unknown [employer] Other (8 sources) patient allergy list reviewed by nurse or physicia Propensity to adverse reactions 03-29-20 19 Comment:Done [employer] Other (20 sources) Penicillin G Benzathine Allergy to substance 02-13-20 [facility] (3 sources) PHENobarbital *HYPNOTICS/SEDAT Allergy to substance 02-13-20 [facility] Comment on above: Free Text Allergy: P HENobarbital *HYPNOTICS/SEDATIVES/SLEEP DISORDER (20 sources) Phenytoin; Translations: [PHENYTOIN SODIUM EXTENDED] Drug Allergy 04-07-20 Rash [facility] (20 sources) nickel sulfate Drug Allergy 03-21-20 Unknown [facility] (20 sources) Penicillins Drug Intolerance 04-07-20 Rash, Unknown [facility] (20 sources) Zinc Acetate Drug Allergy 03-21-20 [facility] (2 sources) Penicillins Propensity to adverse reactions to drug 04-07-20 [facility] Medications Current Medications Medication Drug Class(es) Dates Sig (Normalized) Sig (Original) acetaminophen 325 mg / oxyCODONE hydrochloride 7.5 mg oral tablet (20 sources) Opioid Agonist Start: 08-03-2025 End: 08-07-2025 take 1 tablet by mouth twice daily as needed for pain Start: 11-15-2024 End: 07-10-2025 take 1 tablet [...] 20, 2024 March 20, 2024 1:16pm Start: 03-20-2024 End: 03-20-2024 take 1 tablet [...] tablet (20 sources) Benzodiazepine Start: 02-22-2024 End: 08-07-2025 take 1 tablet by mouth twice daily as needed for anxiety Start: 01-24-2023 End: 02-22-2024 take 1 tablet by mouth twice daily Alprazolam 1 mg tablet Discontinued 1 MG PO Twice daily 60 30 December 22, 2023 1:58pm January 22, 2024 3:55pm aspirin 325 mg oral tablet (20 sources) Platelet Aggregation Inhibitor, Nonsteroidal Anti-inflammatory Drug Start: 03-07-2024 End: 08-06-2024 take 1 tablet by mouth once daily baclofen 20 mg oral tablet (2 sources) [...] take 1 tablet by mouth once daily gabapentin 300 mg oral capsule (20 sources) Anti-epileptic Agent Start: 08-03-2025 take 1 capsule by mouth once daily Start: 05-18-2025 End: 06-17-2025 take 1 capsule [...] Start: 11-08-2022 take 1 capsule by mo [facility] three times daily Gabapentin 300 MG 1 capsule Orally 3 times per day for 30 day(s) Nov, Active End: 08-06-2024 take 1 capsule by mouth once daily gabapentin (Neurontin) 300 MG capsule Indications: Neuropathic Pain Take 300 mg by mouth Daily 08/06/2024 Discontinued (Reorder) hydroxyurea 500 mg oral capsule (20 sources) Antimetabolite Start: 07-16-2025 take 1 capsule by mo [facility] twice daily Start: 04-23-2024 take 1 capsule by mo [facility] once daily hydroxyurea (Hydrea) 500 MG capsule Take 500 mg by mouth Daily. 04/23/2024 Active Hyoscyamine (5 sources) Hyoscyamine Acti ve latanoprost 0.05 mg/ml ophthalmic solution (20 sources) Prostaglandin Analog Start: 07-16-2025 take 1 drop(s) into the eye(s) once daily Start: 05-17-2024 take 1 drop(s) into the eye(s) once daily at bedtime latanoprost (Xalatan) 0.005 % ophthalmic solution INSTILL 1 DROP IN EACH EYE EVERY DAY AT BEDTIME 05/17/2024 Active levETIRAcetam 500 mg oral ta blet (20 sources) Start: 07-16-2025 take 1 tablet by pastor th twice daily Start: 07-06-2025 take 1 tablet by pastor th at bedtime levETIRAcetam (Keppra) 500 MG tablet [...] 2024 1:09pm lisinopril 10 mg oral tablet (5 sources) Angiotensin Converting Enzyme Inhibitor Start: 06-10-2025 End: 09-08-2025 take 1 tablet by mouth once daily metoprolol tartrate 25 mg oral tablet (20 sources) beta-Adrenergic Raúl Start: 02-06-2025 End: 03-06-2025 take 1 tablet by mouth at bedtime metoprolol tartrate (Lopressor) 25 MG tablet Indications: Cerebrovascular accident (CVA), unspecified mechanism (HCC) TAKE 1 TABLET (25 MG) BY MOUTH IN THE MORNING AND BEFORE BEDTIME 180 tablet 1 03/06/2025 Active Start: 02-09-2024 End: 11-13-2024 take 1 tablet by mouth in the morning metoprolol tartrate (Lopressor) 25 MG tablet Indications: Cerebrovascular accident (CVA), unspecified mechanism (CMS/HCC) Take 1 tablet (25 mg) by mouth in the morning and 1 tablet (25 mg) before bedtime. 60 tablet 1 11/13/2024 Active metoprolol tartr ate (LOPRESSOR) 50 mg tablet Take 25 mg by mouth 2 (two) times a day. Active take 1 tablet by pastor th [...] Active oxybutynin chloride 5 mg oral tablet (20 sources) Cholinergic Muscarinic Antagonist Start: 12-20-2023 End: 02-25-2025 take 1 tablet by mouth every eight hours take 1 tablet by pastor three times daily as needed oxyBUTYnin Chloride 5 MG TAKE 1 TABLET B Y MOUTH THREE TIMES A DAY NEEDED for 90 Active rOPINIRole 0.5 mg oral tablet (20 sources) Nonergot Dopamine Agonist Start: 08-12-2024 End: 09-08-2025 take 1 tablet by mouth once daily Start: 01-19-2024 End: 02-13-2024 take 1 tablet [...] tablet by mouth once daily at bedtime Start: 03-19-2024 End: 08-03-2025 take 1 tablet [...] 2024 11:33am take 1 tablet by pastor twice daily busPIRone HCl 10 MG TAKE 1 TABLET BY MOUTH TWICE A DAY for 90 Active simvastatin 40 mg oral [...] venlafaxine 37.5 mg extended release oral capsule (14 sources) Serotonin and Norepinephrine Reuptake Inhibitor Start: 02-06-2024 End: 02-13-2024 take 1 capsule by mouth once daily Venlafaxine 37.5 mg capsule,extended release 24hr Discontinued 0 .ROUTE .COMPLEX February 06, 2024 8:55am [...] without bleeding] Onset: 8 Chronic Epilepsy; convulsions (11 sources) Epilepsy; Translations: [Epilepsy, unspecified, not intractable, [...] unspecified] Episodic Malaise and fatigue (2 sources) Fatigue; Translations: [Other fatigue] 03-20-2024 Episodic Mood disorders (20 sources) Major depression, single episode; Translations: [Major depressive disorder, single episode, unspecified] Onset: 4 02-09-2024 Chronic Neoplasms of unspecified nature or uncertain behavior (20 sources) Essential thrombocythemia; Translations: [Essential (hemorrhagic) thrombocythemia] Onset: 5 02-25-2025 Chronic Neoplasms of unspecified nature or uncertain behavior (2 sources) Thrombocytosis; Translations: [Thrombocythemia] 03-20-2024 Episodic Nutritional deficiencies [...] diagnosis of hypertension] Episodic Other circulatory disease (2 sources) Low blood pressure; Translations: [Hypotension, unspecified] 02-14-2024 [...] left hip] Episodic Other non-traumatic joint disorders (4 sources) Hip pain; Translations: [Pain in left hip] 08-07-2025 Episodic Pancreatic disorders (not diabetes) (20 sources) Drug-induced acute pancreatitis; Translations: [Drug induced acute pancreatitis without necrosis or infection] Onset: 1 07-24-2024 Episodic Phlebitis; thrombophlebitis and thromboembolism (4 sources) H/O: Deep vein thrombosis; Translations: [Personal [...] AUTO DIFFon BASOPHILS ABSOLUTE AUTO 0 N [facility] Basophils/100 WBC (Bld) 0.5 % 0.2 - 2.0 % [facility] Eosinophils/100 WBC (Bld) 2.7 % 0.9 - 7.0 % [facility] Erythrocyte distribution width (RBC) [Ratio] 13.4 % 11.0 - 15.0 % [facility] Hematocrit (Bld) [Volume fraction] 48 % 36.0 - 48.0 % [facility] Hemoglobin (Bld) [Mass/Vol] 16 g/dL 12.0 - 16.0 g/dL [facility] IMMATURE GRANULOCYTES ABS AUTO 0.02 [facility] Immature granulocytes/100 WBC (Bld) 0.3 % 0.0 - 0.5 % [facility] Interpretation and review of laboratory results Abnormal [facility] LYMPHOCYTES ABSOLUTE AUTO 2 [facility] Lymphocytes/100 WBC (Bld) 32.4 % 20.5 - 60. 0 % [facility] MCH (RBC) [Entitic mass] 34.9 pg High 26. 7 - 34.0 pg [facility] MCHC (RBC) [Mass/Vol] 33.3 g/dL 29.9 - 35.2 g/dL [facility] MCV (RBC) [Entitic vol] 104.6 fL High 81.0 - 99.0 fL [facility] MONOCYTES ABSOLUTE AUTO 0.5 [facility] Monocytes/100 WBC (Bld) 8.2 % 1.7 - 12.0 % [facility] NEUTROPHILS ABSOLUTE AUTO 3.5 [facility] Neutrophils/100 WBC (Bld) 55.9 % 43.0 - 75. 0 % [facility] Platelet mean volume (Bld) [Entitic vol] 10.8 fL 9.5 - 13.5 fL [facility] TBH EO # 0.2 [facility] PLT 355 [facility] RBC 4.59 [facility] WBC 6.2 [facility] HbA1c (Bld) [Mass fraction]o n 04-10-2025 Interpretation and review of laboratory results Abnormal [facility] - Hematology and Cell countson 04-10-2025 HbA1c (Bld) [Mass fraction] 5.8 % [facility] Urinalysis macro (dipstick) panel (U)on 04-10-2025 Bilirubin, UA Negative Negative - 4(70) +++ mg/dL [facility] Blood, UA Negative Negative - 50 Hunter/mcL [facility] Clarity, UA Clear [facility] Color, UA Yellow [facility] Glucose, UA Positive Negative - 2000(110) ++++ mg/dL [facility] Comment on above: 250 Interpretation and review of laboratory results Abnormal [facility] Ketones, UA Negative Negative - 160(16) ++++ mg/dL [facility] Leukocytes, UA Trace Negative - 500+++ Fara/mcL [facility] Nitrite, UA Negative Negative - Positive [facility] pH, UA 6 5 - 9 [facility] Protein, UA Negative Negative - 1999(20) ++++ mg/dL [facility] Spec Grav, UA 1.015 1 - 1.03 [facility] Urobilinogen, UA 0.2 0.2 - 12 mg/dL [facility] ALL CBC WITH AUTO DIFFon BASOPHILS ABSOLUTE AUTO 0 N [facility] Basophils/100 WBC (Bld) 0.2 % 0.2 - 2.0 % [facility] Eosinophils/100 WBC (Bld) 2.2 % 0.9 - 7.0 % [facility] Erythrocyte distribution width (RBC) [Ratio] 16.1 % High 11.0 - 15.0 % [facility] Hematocrit (Bld) [Volume fraction] 45.9 % 36.0 - 48.0 % [facility] Hemoglobin (Bld) [Mass/Vol] 15.3 g/dL 12.0 - 16.0 g/dL [facility] IMMATURE GRANULOCYTES ABS AUTO 0.02 [facility] Immature granulocytes/100 WBC (Bld) 0.2 % 0.0 - 0.5 % [facility] Interpretation and review of laboratory results Abnormal [facility] LYMPHOCYTES ABSOLUTE AUTO 2.6 [facility] Lymphocytes/100 WBC (Bld) 31.4 % 20.5 - 60. 0 % [facility] MCH (RBC) [Entitic mass] 33.1 pg 26. 7 - 34.0 pg [facility] MCHC (RBC) [Mass/Vol] 33.3 g/dL 29.9 - 35.2 g/dL [facility] MCV (RBC) [Entitic vol] 99.4 fL High 81.0 - 99.0 fL [facility] MONOCYTES ABSOLUTE AUTO 0.6 N [facility] Monocytes/100 WBC (Bld) 6.9 % 1.7 - 12.0 % [facility] NEUTROPHILS ABSOLUTE AUTO 4.8 [facility] Neutrophils/100 WBC (Bld) 59.1 % 43.0 - 75. 0 % [facility] Platelet mean volume (Bld) [Entitic vol] 10.6 fL 9.5 - 13.5 fL [facility] TBH EO # 0.2 [facility] PLT 416 [facility] TB RBC 4.62 [facility] WBC 8.2 [facility] ALL CBC WITH AUTO DIFFon BASOPHILS ABSOLUTE AUTO 0 N [facility] Basophils/100 WBC (Bld) 0.5 % 0.2 - 2.0 % [facility] Eosinophils/100 WBC (Bld) 5.2 % 0.9 - 7.0 % [facility] Erythrocyte distribution width (RBC) [Ratio] 12.4 % 11.0 - 15.0 % [facility] Hematocrit (Bld) [Volume fraction] 49.7 % High 36.0 - 48.0 % [facility] Hemoglobin (Bld) [Mass/Vol] 16.2 g/dL High 12.0 - 16.0 g/dL [facility] IMMATURE GRANULOCYTES ABS AUTO 0.01 [facility] Immature granulocytes/100 WBC (Bld) 0.1 % 0.0 - 0.5 % [facility] Interpretation and review of laboratory results Abnormal [facility] LYMPHOCYTES ABSOLUTE AUTO 2 [facility] Lymphocytes/100 WBC (Bld) 25 % 20.5 - 60. 0 % [facility] MCH (RBC) [Entitic mass] 33.3 pg 26. 7 - 34.0 pg [facility] MCHC (RBC) [Mass/Vol] 32.6 g/dL 29.9 - 35.2 g/dL [facility] MCV (RBC) [Entitic vol] 102.3 fL High 81.0 - 99.0 fL [facility] MONOCYTES ABSOLUTE AUTO 0.7 N [facility] Monocytes/100 WBC (Bld) 8.5 % 1.7 - 12.0 % [facility] NEUTROPHILS ABSOLUTE AUTO 4.8 [facility] Neutrophils/100 WBC (Bld) 60.7 % 43.0 - 75. 0 % [facility] Platelet mean volume (Bld) [Entitic vol] 10.7 fL 9.5 - 13.5 fL [facility] EO # 0.4 [facility] PLT 546 High [facility] RBC 4.86 [facility] TB WBC 7.9 [facility] ALL CBC WITH AUTO DIFFon BASOPHILS ABSOLUTE AUTO 0 N [facility] Basophils/100 WBC (Bld) 0.6 % 0.2 - [...] [facility] MONOCYTES ABSOLUTE AUTO 0.6 [facility] Monocytes/100 WBC (Bld) 8.4 % 1.7 - 12.0 % [facility] NEUTROPHILS ABSOLUTE AUTO 3.5 [facility] Neutrophils/100 WBC (Bld) 50.9 % 43.0 - 75. 0 % [facility] Platelet mean volume (Bld) [Entitic vol] 10.7 fL 9.5 - 13.5 fL [facility] TBH EO # 0.2 [facility] PLT 340 [facility] RBC 3.97 Low [facility] WBC 6.8 [facility] ALL CBC WITH AUTO DIFFon BASOPHILS ABSOLUTE AUTO 0.0 [facility] Basophils/100 WBC (Bld) 0.5 % 0.2 - [...] Interpretation and review of laboratory results [facility] Lymphocytes/100 WBC (Bld) 36.0 % 20.5 - 60. 0 % [facility] MCH (RBC) [Entitic mass] 34.9 pg High 26. 7 - 34.0 pg [facility] MCHC (RBC) [Mass/Vol] 33.9 g/dL 29.9 - 35.2 g/dL [facility] MCV (RBC) [Entitic vol] 103.0 fL High 81.0 - 99.0 fL [facility] MONOCYTES ABSOLUTE AUTO 0.5 N [facility] Monocytes/100 WBC (Bld) 7.3 % 1.7 - 12.0 % [facility] NEUTROPHILS ABSOLUTE AUTO 3.8 [facility] Neutrophils/100 WBC (Bld) 52.5 % 43.0 - 75. 0 % [facility] Platelet mean volume (Bld) [Entitic vol] 10.5 fL 9.5 - 13.5 fL [facility] TBH EO # 0.3 [facility] TB PLT 315 [facility] TB RBC 4.04 Low [facility] TB WBC 7.3 [facility] Healthcare Office Visiton 04-02-2024 Follow-up visit [id number] Lesly Steve 1950 F Date Provider Department Center 04/02/2024 [id number], EHAB CARD [facility] Family History Family history unknown: Yes Level of Service:88310 OR OFFICE/OUTPATIENT NEW MODERATE MDM 45 MINUTES Normal [facility] Orders Onlyon 03-29-2024 Orders Only [id number] Lesly Steve 1950 F Date Provider Department Center 03/29/2024 [id number], HISTORICAL BH CARD Sam[facility] No family history on file Normal [facility] Referrals Officeon Referrals Office [phone] [id number] Normal [facility] Basophils Auto (Bld) [#/Vol] on 02-09-2024 Basophils (Bld) [#/Vol] 0.0 10 3/uL 0.0-0.1 [facility] Basophils/100 WBC Auto (Bld) on 02-09-2024 Basophils/100 WBC (Bld) 0.3 % 0.2-2.0 F [facility] Cholesterol in LDL Calc [Mas s/Vol]on 02-09-2024 Cholesterol in LDL [Mass/Vol] 141.0 mg/dL [facility] Comment on above: <100 mg/dl [id number] 0-129 mg/dl NEAR OR ABOVE [id number] mg/dl BORDERLINE [id number] mg/dl HIGH>190 mg/dl VERY HIGH Cholesterol in VLDL Calc [Ma ss/Vol]on 02-09-2024 Cholesterol in VLDL [Mass/Vol] 25.2 mg/dL [facility] Eosinophils/100 WBC Auto (Bl d)on 02-09-2024 Eosinophils/100 WBC (Bld) 2.7 % 0.9-7.0 [facility] Erythrocyte distribution wid th Auto (RBC) [Ratio]on 02-09-2024 Erythrocyte distribution width (RBC) [Ratio] 14.0 % 11.0-15.0 [facility] Estimated glomerular filtrat ion rate (GFR) non- Americanon 02-09-2024 GFR/1.73 sq M.predicted among non-blacks MDRD (S/P/Bld) [Vol rate/Area] 59 mL/min/{1.73_m2} >=60 [facility] Hematocrit Auto (Bld) [Volum e fraction]on 02-09-2024 Hematocrit (Bld) [Volume fraction] 45.5 % 36.0-48.0 [facility] Hemoglobin [Mass/volume] in Bloodon 02-09-2024 Hemoglobin (Bld) [Mass/Vol] 14.6 g/dL 12.0-16.0 [facility] Laboratory - Chemistry and C hemistry - challengeon 02-09-2024 Calcium [Mass/Vol] 9.6 mg/dL 8.5-10.1 [facility] Chloride [Moles/Vol] 103 mmol/L 98-107 [facility] Cholesterol [Mass/Vol] 200 mg/dL <=200 [facility] Cholesterol in HDL [Mass/Vol] 34 mg/dL 40-60 [facility] Comment on above: > or =60 mg/dl - LOW CARDIOVASCULAR RISK<40 mg/dl - HIGH CARDIOVASCULAR RISK CO2 [Moles/Vol] 26.1 mmol/L 21.0-32.0 [facility] Creatinine [Mass/Vol] 0.93 mg/dL 0.55-1.02 [facility] GFR/1.73 sq M.predicted MDRD (S/P/Bld) [Vol rate/Area] mL/min/{1.73_m2} >=60 [facility] Glucose [Mass/Vol] 116 mg/dL 74-106 [facility] Potassium [Moles/Vol] 4.2 mmol/L 3.5-5.1 [facility] Sodium [Moles/Vol] 139 mmol/L 136-145 [facility] Triglyceride [Mass/Vol] 126 mg/dL <=150 F [facility] Urea nitrogen [Mass/Vol] 22.0 mg/dL 7.0-18.0 [facility] Urea nitrogen/Creatinine [Mass ratio] 23.7 mg/mg [facility] Laboratory - Hematology and Cell countson 02-09-2024 Immature granulocytes/100 WBC (Bld) 0.3 % 0.0-0.5 [facility] Leukocytes [#/volume] correc dinora for nucleated erythrocytes in Blood by Automated counon 02-09-2024 WBC corrected for nucl RBC Auto (Bld) [#/Vol] 12.2 10 3/uL 4.0-11.0 [facility] Lymphocytes Auto (Bld) [#/Vo l]on 02-09-2024 Lymphocytes (Bld) [#/Vol] 2.0 10 3/uL 1.2-3.8 [facility] Lymphocytes/100 WBC Auto (Bl d)on 02-09-2024 Lymphocytes/100 WBC (Bld) 16.4 % 20.5-60.0 [facility] MCH Auto (RBC) [Entitic mass ]on 02-09-2024 MCH (RBC) [Entitic mass] 29.4 pg 26.7-34.0 [facility] MCHC Auto (RBC) [Mass/Vol]on 02-09-2024 MCHC (RBC) [Mass/Vol] 32.1 g/dL 29.9-35.2 [facility] MCV Auto (RBC) [Entitic vol] on 02-09-2024 MCV (RBC) [Entitic vol] 91.7 fL 81.0-99.0 F [facility] Monocytes Auto (Bld) [#/Vol] on 02-09-2024 Monocytes (Bld) [#/Vol] 0.9 10 3/uL 0.3-0.8 [facility] Monocytes/100 WBC Auto (Bld) on 02-09-2024 Monocytes/100 WBC (Bld) 7.7 % 1.7-12.0 F [facility] Neutrophils Auto (Bld) [#/Vo l]on 02-09-2024 Neutrophils (Bld) [#/Vol] 8.9 10 3/uL 1.4-6.5 [facility] Neutrophils/100 WBC Auto (Bl d)on 02-09-2024 Neutrophils/100 WBC (Bld) 72.6 % 43.0-75.0 [facility] No Panel Informationon 02-08 Eosinophils # (Auto) 0.3 10 3/uL 0.0-0.7 [facility] Immature Granulocyte # (Auto) 0.04 10 3/uL 0.00-0.03 [facility] Platelet mean volume Auto (B ld) [Entitic vol]on 02-09-2024 Platelet mean volume (Bld) [Entitic vol] 10.9 fL 9.5-13.5 [facility] Platelets Auto (Bld) [#/Vol] on 02-09-2024 Platelets (Bld) [#/Vol] 546 10 3/uL 150-450 [facility] RBC Auto (Bld) [#/Vol]on RBC (Bld) [#/Vol] 4.96 10 6/uL 4.20-5.40 [facility] Serum or plasma anion gap de terminationon 02-09-2024 Anion gap [Moles/Vol] 14.1 mmol/L Fi [facility] Serum or plasma total choles terol/high density lipoprotein (HDL) cholesterol mass maury 02-09-2024 Cholesterol.total/Cholest janay in HDL [Mass ratio] 5.9 {ratio} [facility] Comment on above: 3.3 - 4.4 LOW RISK4. 4 - 7.1 AVERAGE RISK7.1 - 11.0 MODERATE RISK>11.0 HIGH RISK Automated epithelial cells c ount in urine sediment (number/area)on 02-08-2024 Epithelial cells Auto (Urine sed) [#/Area] MODERATE #/LPF NONE/RARE [facility] Automated leukocytes count i n urine sediment (number/area)on 02-08-2024 WBC Auto (Urine sed) [#/Area] 0-2 #/HPF 0-2 [facility] Automated urine specific gra vity by refractometryon 02-08-2024 Specific gravity Refractometry automated (U) [Rel density] 1.025 1.005-1.025 [facility] Basophils Auto (Bld) [#/Vol] on 02-08-2024 Basophils (Bld) [#/Vol] 0.1 10 3/uL 0.0-0.1 [facility] Basophils/100 WBC Auto (Bld) on 02-08-2024 Basophils/100 WBC (Bld) 0.4 % 0.2-2.0 [facility] Bilirubin Auto test strip (U ) [Mass/Vol]on 02-08-2024 Bilirubin (U) [Mass/Vol] Negative NEGATIVE [facility] Casts typing in urine sedime nt by light microscopyon 02-08-2024 Casts LM Nom (Urine sed) NONE SEEN #/LPF NONE S EEN [facility] Color Auto (U)on 02-08-2024 Color (U) YELLOW YELLOW [facility] Eosinophils/100 WBC Auto (Bl d)on 02-08-2024 Eosinophils/100 WBC (Bld) 1.9 % 0.9-7.0 [facility] Erythrocyte distribution wid th Auto (RBC) [Ratio]on 02-08-2024 Erythrocyte distribution width (RBC) [Ratio] 13.9 % 11.0-15.0 [facility] Estimated glomerular filtrat ion rate (GFR) non- Americanon 02-08-2024 GFR/1.73 sq M.predicted among non-blacks MDRD (S/P/Bld) [Vol rate/Area] 51 mL/min/{1.73_m2} >=60 [facility] Globulin Calc (S) [Mass/Vol] on 02-08-2024 Globulin (S) [Mass/Vol] 3.7 g/dL [facility] Hematocrit Auto (Bld) [Volum e fraction]on 02-08-2024 Hematocrit (Bld) [Volume fraction] 48.8 % 36.0-48.0 [facility] Hemoglobin [Mass/volume] in Bloodon 02-08-2024 Hemoglobin (Bld) [Mass/Vol] 15.8 g/dL 12.0-16.0 [facility] INR in Platelet poor plasma by Coagulation assayon 02-08-2024 INR Coag (PPP) [Relative time] 1.05 {INR} [facility] Comment on above: DESIRED INR:2.0-3.0 CONDITIONS NOT LISTED BELOW2.5-3.5 FOR PROSTHETIC HEART VALVE REPLACEMENT2.5-3.5 RECURRENT THROMBOSIS Ketones Auto test strip (U) [Mass/Vol]on 02-08-2024 Ketones (U) [Mass/Vol] Negative NEGATIVE [facility] - Chemistry and C hemistry - challengeon 02-08-2024 Albumin [Mass/Vol] 4.0 g/dL 3.4-5.0 [facility] ALP [Catalytic activity/Vol] 80 U/L 46-116 [facility] ALT [Catalytic activity/Vol] 25 U/L 14-59 [facility] AST [Catalytic activity/Vol] 31 U/L 15-37 [facility] Bilirubin [Mass/Vol] 0.4 mg/dL 0.2-1.0 [facility] Calcium [Mass/Vol] 9.5 mg/dL 8.5-10.1 [facility] Chloride [Moles/Vol] 100 mmol/L 98-107 [facility] CO2 [Moles/Vol] 28.0 mmol/L 21.0-32.0 [facility] Creatinine [Mass/Vol] 1.06 mg/dL 0.55-1.02 [facility] GFR/1.73 sq M.predicted MDRD (S/P/Bld) [Vol rate/Area] mL/min/{1.73_m2} >=60 [facility] Glucose [Mass/Vol] 105 mg/dL 74-106 [facility] Potassium [Moles/Vol] 3.7 mmol/L 3.5-5.1 [facility] Protein [Mass/Vol] 7.7 g/dL 6.4-8.2 [facility] Sodium [Moles/Vol] 137 mmol/L 136-145 [facility] Urea nitrogen [Mass/Vol] 19.0 mg/dL 7.0-18.0 [facility] Urea nitrogen/Creatinine [Mass ratio] 17.9 mg/mg [facility] Laboratory - Hematology and Cell countson 02-08-2024 Immature granulocytes/100 WBC (Bld) 0.2 % 0.0-0.5 [facility] - Microbiology an d Antimicrobial susceptibilityOrdered By: Robert Schwartz on 02-08-2024 Bacteria identified Cx Nom (U) [facility] Leukocytes [#/volume] correc dinora for nucleated erythrocytes in Blood by Automated counon 02-08-2024 WBC corrected for nucl RBC Auto (Bld) [#/Vol] 13.4 10 3/uL 4.0-11.0 [facility] Lymphocytes Auto (Bld) [#/Vo l]on 02-08-2024 Lymphocytes (Bld) [#/Vol] 2.7 10 3/uL 1.2-3.8 [facility] Lymphocytes/100 WBC Auto (Bl d)on 02-08-2024 Lymphocytes/100 WBC (Bld) 20.3 % 20.5-60.0 [facility] MCH Auto (RBC) [Entitic mass ]on 02-08-2024 MCH (RBC) [Entitic mass] 30.2 pg 26.7-34.0 [facility] MCHC Auto (RBC) [Mass/Vol]on 02-08-2024 MCHC (RBC) [Mass/Vol] 32.4 g/dL 29.9-35.2 [facility] MCV Auto (RBC) [Entitic vol] on 02-08-2024 MCV (RBC) [Entitic vol] 93.1 fL 81.0-99.0 [facility] Monocytes Auto (Bld) [#/Vol] on 02-08-2024 Monocytes (Bld) [#/Vol] 1.1 10 3/uL 0.3-0.8 [facility] Monocytes/100 WBC Auto (Bld) on 02-08-2024 Monocytes/100 WBC (Bld) 8.1 % 1.7-12.0 [facility] Mucus LM Ql (Urine sed)on Mucus Ql (Urine sed) TRACE NONE SEEN [facility] Neutrophils Auto (Bld) [#/Vo l]on 02-08-2024 Neutrophils (Bld) [#/Vol] 9.3 10 3/uL 1.4-6.5 [facility] Neutrophils/100 WBC Auto (Bl d)on 02-08-2024 Neutrophils/100 WBC (Bld) 69.1 % 43.0-75.0 [facility] No Panel Informationon 02-07 Urine Culture Reflexed YES [facility] Urine Microscopic Review YES [facility] Eosinophils # (Auto) 0.3 10 3/uL 0.0-0.7 [facility] Immature Granulocyte # (Auto) 0.03 10 3/uL 0.00-0.03 [facility] Platelet mean volume Auto (B ld) [Entitic vol]on 02-08-2024 Platelet mean volume (Bld) [Entitic vol] 10.5 fL 9.5-13.5 [facility] Platelets Auto (Bld) [#/Vol] on 02-08-2024 Platelets (Bld) [#/Vol] 585 10 3/uL 150-450 [facility] Protein Auto test strip (U) [Mass/Vol]on 02-08-2024 Protein (U) [Mass/Vol] TRACE mg/dL NEG/TRACE [facility] Prothrombin time (PT)on PT Coag (PPP) [Time] 11.1 s 9.0-11.6 [facility] RBC Auto (Bld) [#/Vol]on RBC (Bld) [#/Vol] 5.24 10 6/uL 4.20-5.40 [facility] Serum or plasma albumin/glob ulin mass ratioon 02-08-2024 Albumin/Globulin [Mass ratio] 1.1 {ratio} [facility] Serum or plasma anion gap de terminationon 02-08-2024 Anion gap [Moles/Vol] 12.7 mmol/L [facility] Specific gravity Auto test s trip (U) [Rel density]on 02-08-2024 Specific gravity (U) [Rel density] CLEAR CLEAR [facility] Urine bacteria detection by automated methodon 02-08-2024 Bacteria Auto Ql (U) MODERATE #/HPF NONE SEEN [facility] Urine glucose measurement by test strip (mass/volume)on 02-08-2024 Glucose Test strip (U) [Mass/Vol] Negative NEGATIVE [facility] Urine hemoglobin detection b y automated test stripon 02-08-2024 Hemoglobin Auto test strip Ql (U) Negative NEGATIVE [facility] Urine nitrite detection by a utomated test stripon 02-08-2024 Nitrite Auto test strip Ql (U) SMALL NEGATIVE [facility] Nitrite Auto test strip Ql (U) Negative NEGATIVE [facility] Urine sediment crystal ident ification by light microscopyon 02-08-2024 Crystals LM Nom (Urine sed) None Seen #/HPF None Seen [facility] Urine sediment leukocyte cou nt by microscopy (number/high power field)on 02-08-2024 WBC LM.HPF (Urine sed) [#/Area] 10-20 #/HPF NONE SEEN [facility] Urobilinogen Auto test strip (U) [Mass/Vol]on 02-08-2024 Urobilinogen Qn (U) 0.2 {Toshia'U}/dL 0.2-1.0 [facility] pH Auto test strip (U)on pH (U) 5.5 [pH] 5.0-9.0 [facility] CBC AUTO DIFFon 02-09-2023 BASO # 0.0 103/ul Normal 0.0-0.1 [facility] Comment on above: Performed By: #### C BC #### [facility] [address] [address] [address] Thierno Phipps Basophils/100 WBC (Bld) 0.4 % Normal 0.2-2.0 [facility] Comment on above: Performed By: #### C BC #### [facility] [address] [address] [address] Thierno Phipps EO # 0.5 103/ul Normal 0.0-0.7 [facility] Comment on above: Performed By: #### C BC #### [facility] [address] [place] [address] Dr. Thierno Phipps Eosinophils/100 WBC (Bld) 4.8 % Normal 0.9-7.0 [facility] Comment on above: Performed By: #### C BC #### [facility] [address] [place] [address] Dr. Thierno Phipps Erythrocyte distribution width (RBC) [Ratio] 13.2 % Normal 11.0-15.0 [facility] Comment on above: Performed By: #### C BC #### [facility] [address] [place] [address] Dr. Thierno Phipps Hematocrit (Bld) [Volume fraction] 48.4 % Critically high 36.0-48.0 [facility] Comment on above: Performed By: #### C BC #### [facility] [address] [place] [address] Dr. Thierno Phipps Hemoglobin (Bld) [Mass/Vol] 15.8 g/dL Normal 12.0-16.0 [facility] Comment on above: Performed By: #### C BC #### [facility] [address] [place] [address] Dr. Thierno Phipps IG # 0.03 10e3/ul Normal 0.00-0.03 [facility] Comment on above: Performed By: #### C BC #### [facility] [address] [place] [address] Dr. Thierno Phipps IG % 0.3 % Normal 0.0-0.5 [facility] Comment on above: Performed By: #### C BC #### [facility] [address] [place] [address] Dr. Thierno Phipps LYMPH # 2.9 103/ul Normal 1.2-3.8 [facility] Comment on above: Performed By: #### C BC #### [facility] [address] [place] [address] Dr. Thierno Phipps Lymphocytes/100 WBC (Bld) 30.1 % Normal 20.5-60.0 [facility] Comment on above: Performed By: #### C BC #### [facility] [address] [place] [address] Dr. Thierno Phipps MANUAL DIFF REQ NO Normal [facility] Comment on above: Performed By: #### C BC #### [facility] [address] [place] [address] Dr. Thierno Phipps MCH (RBC) [Entitic mass] 29.6 pg Normal 26.7-34.0 [facility] Comment on above: Performed By: #### C BC #### [facility] [address] [place] [address] Dr. Thierno Phipps MCHC (RBC) [Mass/Vol] 32.6 g/dL Normal 29.9-35.2 [facility] Comment on above: Performed By: #### C BC #### [facility] [address] [place] [address] Dr. Thierno Phipps MCV (RBC) [Entitic vol] 90.8 fL Normal 81.0-99.0 [facility] Comment on above: Performed By: #### C BC #### [facility] [address] [place] [address] Dr. Thierno Phipps MONO # 0.8 103/ul Normal 0.3-0.8 [facility] Comment on above: Performed By: #### C BC #### [facility] [address] [place] [address] Dr. Thierno Phipps Monocytes/100 WBC (Bld) 8.2 % Normal 1.7-12.0 [facility] Comment on above: Performed By: #### C BC #### [facility] [address] [address] [address] Thierno Phipps NEUT # 5.4 103/ul Normal 1.4-6.5 [facility] Comment on above: Performed By: #### C BC #### [facility] [address] [address] [address] Thierno Phipps Neutrophils/100 WBC (Bld) 56.2 % Normal 43.0-75.0 [facility] Comment on above: Performed By: #### C BC #### [facility] [address] [address] [address] Thierno Phipps Platelet mean volume (Bld) [Entitic vol] 10.4 fL Normal 9.5-13.5 [facility] Comment on above: Performed By: #### C BC #### [facility] [address] [place] [address] Dr. Thierno Phipps PLT 626 103/ul Critically high 150-450 [facility] Comment on above: Performed By: #### C BC #### [facility] [address] [address] [address] Thierno Phipps RBC 5.33 106/ul Normal 4.20-5.40 [facility] Comment on above: Performed By: #### C BC #### [facility] [address] [address] [address] Thierno Phipps WBC 9.6 103/ul Normal 4.0-11.0 [facility] Comment on above: Performed By: #### C BC #### [facility] [address] [place] [address] Dr. Thierno Phipps LIPID PROFILEon 02-09-2023 CHOL-HDL RATIO NORM SEE BELOW Normal [facility] Comment on above: Result Comment: 3.3 - 4.4 LOW RISK 4.4 - 7.1 AVERAGE RISK 7.1 - 11.0 MODERATE RISK >11.0 HIGH RISK Performed By: #### L IPID, CMP #### [facility] [address] [address] [address] Thierno Phipps Cholesterol [Mass/Vol] 267 mg/dL Critically high <=200 [facility] Comment on above: Performed By: #### L IPID, CMP #### [facility] [address] [address] [address] Thierno Phipps Cholesterol in HDL [Mass/Vol] 35 mg/dL Critically low 40-60 [facility] Comment on above: Performed By: #### L IPID, CMP #### [facility] [address] [address] [address] Thierno Phipps Cholesterol in LDL [Mass/Vol] 186.0 mg/dL Normal [facility] Comment on above: Performed By: #### L IPID, CMP #### [facility] [address] [address] [address] Thierno Phipps Cholesterol.total/Cholest janay in HDL [Mass ratio] 7.6 {ratio} Normal [facility] Comment on above: Performed By: #### L IPID, CMP #### [facility] [address] [address] [address] Thierno Phipps HDL NORMAL > or = 60 mg/dl - LOW CARDIOVASCULAR RISK <40 mg/dl - HIGH CARDIOVASCULAR RISK Normal [facility] Comment on above: Performed By: #### L IPID, CMP #### [facility] [address] [address] [address] Thierno Phipps LDL CALC NORMAL SEE BELOW Normal [facility] Comment on above: Result Comment: <100 mg/dl OPTIMAL 100 - 129 mg/dl NEAR OR ABOVE OPTIMAL 130 - 159 mg/dl BORDERLINE HIGH 160 - 189 mg/dl HIGH >190 mg/dl VERY HIGH Performed By: #### L IPID, CMP #### [facility] [address] [address] [address] Thierno Phipps Triglyceride [Mass/Vol] 230 mg/dL Critically high <=150 [facility] Comment on above: Performed By: #### L IPID, CMP #### [facility] [address] [address] [address] Thierno Phipps VLDL CALC 46.0 mg/dL Normal [facility] Comment on above: Performed By: #### L IPID, CMP #### [facility] [address] [address] [address] Thierno Phipps MICROALBUMIN, RAND URon 04-0 mALB <1.3 Normal <=30.0 [facility] Comment on above: Performed By: #### M ALBR #### [facility] [address] [address] [address] Thierno Phipps PROF 14(COMP METB)on 023 Albumin [Mass/Vol] 4.0 g/dL Normal 3.4-5.0 [facility] Comment on above: Performed By: #### L IPID, CMP #### [facility] [address] [address] [address] Thierno Phipps Albumin/Globulin [Mass ratio] 1.0 {ratio} Normal [facility] Comment on above: Performed By: #### L IPID, CMP #### [facility] [address] [place] [address] Dr. Thierno Phipps ALP [Catalytic activity/Vol] 93 U/L Normal 46-116 [facility] Comment on above: Performed By: #### L IPID, CMP #### [facility] [address] [address] [address] Thierno Phipps ALT [Catalytic activity/Vol] 30 U/L Normal 14-59 [facility] Comment on above: Performed By: #### L IPID, CMP #### [facility] [address] [address] [address] Thierno Phipps Anion gap [Moles/Vol] 7.9 mmol/L Normal [facility] Comment on above: Performed By: #### L IPID, CMP #### [facility] [address] [address] [address] Thierno Phipps AST [Catalytic activity/Vol] 18 U/L Normal 15-37 [facility] Comment on above: Performed By: #### L IPID, CMP #### [facility] [address] [place] [address] Dr. Thierno Phipps Bilirubin [Mass/Vol] 0.4 mg/dL Normal 0.2-1.0 [facility] Comment on above: Performed By: #### L IPID, CMP #### [facility] [address] [address] [address] Thierno Phipps Calcium [Mass/Vol] 10.0 mg/dL Normal 8.5-10.1 [facility] Comment on above: Performed By: #### L IPID, CMP #### [facility] [address] [address] [address] Thierno Phipps Chloride [Moles/Vol] 101 mmol/L Normal 98-107 [facility] Comment on above: Performed By: #### L IPID, CMP #### [facility] [address] [address] [address] Thierno Phipps CO2 [Moles/Vol] 32.9 mmol/L Critically high 21.0-32.0 [facility] Comment on above: Performed By: #### L IPID, CMP #### [facility] [address] [address] [address] Thierno Phipps Creatinine [Mass/Vol] 0.97 mg/dL Normal 0.55-1.02 [facility] Comment on above: Performed By: #### L IPID, CMP #### [facility] [address] [address] [address] Thierno Phipps EGFR-AF KYRGYZ >60 Normal >=60 [facility] Comment on above: Performed By: #### L IPID, CMP #### [facility] [address] [address] [address] Thierno Phipps EGFR-NON AF KYRGYZ 56 mL/min/1.73m2 Critically low >=60 [facility] Comment on above: Performed By: #### L IPID, CMP #### [facility] [address] [address] [address] Thierno Phipps Globulin (S) [Mass/Vol] 4.0 g/dL Normal [facility] Comment on above: Performed By: #### L IPID, CMP #### [facility] [address] [address] [address] Thierno Phipps Glucose [Mass/Vol] 119 mg/dL Critically high 74-106 [facility] Comment on above: Performed By: #### L IPID, CMP #### [facility] [address] [address] [address] Thierno Phipps Potassium [Moles/Vol] 3.8 mmol/L Normal 3.5-5.1 [facility] Comment on above: Performed By: #### L IPID, CMP #### [facility] [address] [place] [address] Dr. Thierno Phipps Protein [Mass/Vol] 8.0 g/dL Normal 6.4-8.2 [facility] Comment on above: Performed By: #### L IPID, CMP #### [facility] [address] [place] [address] Dr. Thierno Phipps Sodium [Moles/Vol] 138 mmol/L Normal 136-145 [facility] Comment on above: Performed By: #### L IPID, CMP #### [facility] [address] [place] [address] Dr. Thierno Phipps Urea nitrogen [Mass/Vol] 14.0 mg/dL Normal 7.0-18.0 [facility] Comment on above: Performed By: #### L IPID, CMP #### [facility] [address] [place] [address] Dr. Thierno Phipps Urea nitrogen/Creatinine [Mass ratio] 14.4 mg/mg Normal [facility] Comment on above: Performed By: #### L IPID, CMP #### [facility] [address] [place] [address] Dr. Thierno Phipps XR LSPINE 2_3 VIEWSon [...] RAIN HOWE Date: 2022-10-19 21:47 Normal [facility] XR HIP RT 2 3V W [...] CHAITANYA DAVIS Date: 2022-10-18 16:56 Normal [facility] CT LUNG CANCER SCREENINGon 0 05-17-2022 [...] CHAITANYA CROCKER Date: 2022-05-17 15:19 Normal [facility] XR CHEST 2 Von 04-13-2022 XR [...] by: WICHO CUETO Date: 2022-04-13 13:32 Normal [facility] XR KUB 1 VIEWon 04-13-2022 XR KUB [...] by: CHAITANYA CROCKER Date: 2022-04-13 17:20 Normal [facility] Vital Signs Date Time Vital Sign Value Performing Clinician Facility 08-07-2025 [id number] Body height 162.56 cm Magdalene Ritchieaustyn [employer] Work Phone: [facility] 08-07-2025 13:22-0400 Body mass index (BMI) [Ratio] 23.6 kg/m2 Magdalene Chaujennifercyndi [employer] Work Phone: [facility] 08-07-2025 13:22-0400 Body temperature 98 [degF] Magdalene Olivarezcyndi [employer] WORK[employer] Work Phone: [facility] 08-07-2025 13:22-0400 Body weight 62.31 kg Magdalene Olivarezcyndi [employer] WORK[employer] Work Phone: [facility] 08-07-2025 13:22-0400 Diastolic blood pressure 90 mm[Hg] Magdalene Joleen [employer] WORK[employer] Work Phone: [facility] 08-07-2025 13:22-0400 Heart rate 59 /min Magdalene Aichholz [employer] Work Phone: [facility] 08-07-2025 13:22-0400 Respiratory rate 16 /min Magdalene Aichholz [employer] WORK[employer] Work Phone: [facility] 08-07-2025 13:22-0400 SaO2% (BldA) [Mass fraction] 95 % Magdalene Aichholz [employer] WORK[employer] Work Phone: [facility] 08-07-2025 13:22-0400 Systolic blood pressure 150 mm[Hg] Magdalene Aichholz [employer] WORK[employer] Work Phone: [facility] 06-10-2025 13:03-0400 Body mass index (BMI) [Ratio] 24.03 kg/m2 Magdalene Aichholz [employer] WORKER Work Phone: [facility] 06-10-2025 13:03-0400 Body temperature 98.1 [degF] Magdalene Aichholz BELT WORKER Work Phone: [facility] 06-10-2025 13:03-0400 Body weight 63.5 kg Magdalene Aichholz [employer] WORK[employer] Work Phone: [facility] 06-10-2025 13:03-0400 Diastolic blood pressure 88 mm[Hg] Magdalene Aichholz BELT WORKER Work Phone: [facility] 06-10-2025 13:03-0400 Heart rate 56 /min Magdalene Aichholz [employer] WORKER Work Phone: [facility] 06-10-2025 13:03-0400 Respiratory rate 18 /min Magdalene Aichholz [employer] WORKER Work Phone: [facility] 06-10-2025 13:03-0400 SaO2% (BldA) [Mass fraction] 95 % Magdalene Aichholz [employer] WORKER Work Phone: [facility] 06-10-2025 13:03-0400 Systolic blood pressure 144 mm[Hg] Magdalene Aichholz BELT WORKER Work Phone: [facility] 04-10-2025 14:10-0400 Body mass index (BMI) [Ratio] 23.24 kg/m2 Magdaleneomar Olivarezholz [employer] WORKER Work Phone: [facility] 04-10-2025 14:10-0400 Body temperature 98.1 [degF] Magdalene Chauhholz BELT WORKER Work Phone: [facility] 04-10-2025 14:10-0400 Body weight 61.42 kg Magdalene Chauhholz BELT WORKER Work Phone: [facility] 04-10-2025 14:10-0400 Diastolic blood pressure 90 mm[Hg] Magdalene Aichholz BELT WORKER Work Phone: [facility] 04-10-2025 14:10-0400 Heart rate 55 /min Magdalene Chauhholz BELT WORKER Work Phone: [facility] 04-10-2025 14:10-0400 Respiratory rate 20 /min Magdalene Chauhholz [employer]T WORKER Work Phone: [facility] 04-10-2025 14:10-0400 SaO2% (BldA) [Mass fraction] 96 % Magdalene Chauhholz BEL[employer] WORKER Work Phone: [facility] 04-10-2025 14:10-0400 Systolic blood pressure 140 mm[Hg] Magdalene Chauhholz BELT WORKER Work Phone: [facility] 02-25-2025 14:10-0400 Body mass index (BMI) [Ratio] 22.45 kg/m2 Magdalene Chauhholz [employer] WORKER Work Phone: [facility] [facility] 02-25-2025 14:10-0400 Body temperature 98.1 [degF] Magdalene Chauhholz BELT WORKER Work Phone: [facility] 02-25-2025 14:10-0400 Body weight 59.33 kg Magdalene Chauhholz BELT WORKER Work Phone: [facility] 02-25-2025 14:10-0400 Diastolic blood pressure 82 mm[Hg] Magdalene Chauhholz BELT WORKER Work Phone: [facility] 02-25-2025 14:10-0400 Heart rate 62 /min Magdalene Goodrich BELT WORKER Work Phone: [facility] 02-25-2025 14:10-0400 Respiratory rate 20 /min Magdalene Goodrich BELT WORKER Work Phone: [facility] 02-25-2025 14:10-0400 SaO2% (BldA) [Mass fraction] 95 % Magdalene Goodrich BELT WORKER Work Phone: [facility] 02-25-2025 14:10-0400 Systolic blood pressure 140 mm[Hg] Magdalene Goodrich BELT WORKER Work Phone: [facility] 12-25-2024 13:52-0500 Body height 162.6 cm Andrew Church BELT WORKER Work Phone: [facility] 12-25-2024 13:52-0500 Body mass index (BMI) [Ratio] 23.69 kg/m2 Andrew Church BELT WORKER Work Phone: [facility] 12-25-2024 13:52-0500 Body temperature 98.29 [degF] Andrew Church BELT WORKER Work Phone: [facility] 12-25-2024 13:52-0500 Body weight 62.6 kg Andrew Chucrh BELT WORKER Work Phone: [facility] 12-25-2024 13:52-0500 Diastolic blood pressure 80 mm[Hg] Andrew Church BELT WORKER Work Phone: [facility] 12-25-2024 13:52-0500 Heart rate 74 /min Andrew Church BELT WORKER Work Phone: [facility] 12-25-2024 13:52-0500 Respiratory rate 16 /min Andrew Church BELT WORKER Work Phone: [facility] 12-25-2024 13:52-0500 SaO2% (BldA) [Mass fraction] 94 % Andrew Church BELT WORKER Work Phone: [facility] 12-25-2024 13:52-0500 Systolic blood pressure 136 mm[Hg] Andrew Church BELT WORKER Work Phone: [facility] 09-23-2024 14:23-0500 Body height 162.6 cm Andrew Church BELT WORKER Work Phone: [facility] 09-23-2024 14:23-0500 Body mass index (BMI) [Ratio] 24.2 kg/m2 Andrew Church BELT WORKER Work Phone: [facility] 09-23-2024 14:23-0500 Body temperature 96.6 [degF] Andrew Church BELT WORKER Work Phone: [facility] 09-23-2024 14:23-0500 Body weight 63.96 kg Andrew Church BELT WORKER Work Phone: [facility] 09-23-2024 14:23-0500 Diastolic blood pressure 62 mm[Hg] Andrew Church BELT WORKER Work Phone: [facility] 09-23-2024 14:23-0500 Heart rate 77 /min Andrew Church BELT WORKER Work Phone: [facility] 09-23-2024 14:23-0500 Respiratory rate 20 /min Andrew Church BELT WORKER Work Phone: [facility] 09-23-2024 14:23-0500 SaO2% (BldA) [Mass fraction] 94 % Andrew Church BELT WORKER Work Phone: [facility] 09-23-2024 14:23-0500 Systolic blood pressure 138 mm[Hg] Andrew Church BELT WORKER Work Phone: [facility] 07-24-2024 16:15-0400 Body height 162.6 cm Andrew Church BELT WORKER Work Phone: [facility] 07-24-2024 16:15-0400 Body mass index (BMI) [Ratio] 24.37 kg/m2 Andrew Church BELT WORKER Work Phone: [facility] 07-24-2024 16:15-0400 Body temperature 97.7 [degF] Andrew Church BELT WORKER Work Phone: [facility] 07-24-2024 16:15-0400 Body weight 64.41 kg Andrew Church BELT WORKER Work Phone: [facility] 07-24-2024 16:15-0400 Diastolic blood pressure 80 mm[Hg] Andrew Church BELT WORKER Work Phone: [facility] 07-24-2024 16:15-0400 Heart rate 63 /min Andrew Church BELT WORKER Work Phone: [facility] Comment on above: 97% O2 07-24-2024 16:15-0400 Systolic blood pressure 130 mm[Hg] Andrew Church BELT WORKER Work Phone: [facility] 02-13-2024 11:27-0400 Body height 160.02 cm [facility] 02-13-2024 11:27-0400 Body mass index (BMI) [Ratio] 22.4 kg/m2 [facility] 02-13-2024 11:27-0400 Body weight 57.6 kg [facility] 02-13-2024 11:27-0400 Diastolic blood pressure 53 mm[Hg] [facility] 02-13-2024 11:27-0400 Heart rate 60 /min [facility] 02-13-2024 11:27-0400 Systolic blood pressure 89 mm[Hg] [facility] 08-14-2023 15:00-0400 Body height 160.02 cm Robert Schwartz Other [employer] Other 08-14-2023 15:00-0400 Body mass index (BMI) [Ratio] 24.37 kg/m2 Robert Schwartz Other [employer] Other 08-14-2023 15:00-0400 Body weight 62.42 kg Robert Schwartz Other [employer] Other 08-14-2023 15:00-0400 Diastolic blood pressure 69 mm[Hg] Robert Schwartz Other [employer] Other 08-14-2023 15:00-0400 Systolic blood pressure 107 mm[Hg] Robert Schwartz Other [employer] Other 05-16-2023 14:00-0400 Body height 160.02 cm Robert Schwartz Other [employer] Other 05-16-2023 14:00-0400 Body mass index (BMI) [Ratio] 24.8 kg/m2 Robert Schwartz Other [employer] Other 05-16-2023 14:00-0400 Body weight 63.5 kg Robert Schwartz Other [employer] Other 05-16-2023 14:00-0400 Diastolic blood pressure 65 mm[Hg] Robert Schwartz Other [employer] Other 05-16-2023 14:00-0400 Systolic blood pressure 119 mm[Hg] Robert Schwartz Other [employer] Other 02-07-2023 16:00-0400 Body height 160.02 cm Robert Schwartz Other [employer] Other 02-07-2023 16:00-0400 Body mass index (BMI) [Ratio] 25.33 kg/m2 Robert Schwartz Other [employer] Other 02-07-2023 16:00-0400 Body weight 64.86 kg Robert Schwartz Other [employer] Other 02-07-2023 16:00-0400 Diastolic blood pressure 82 mm[Hg] Robert Schwartz Other [employer] Other 02-07-2023 16:00-0400 SaO2% (BldA) [Mass fraction] 97 % Robertshantelle Schwartz Other [employer] Other 02-07-2023 16:00-0400 Systolic blood pressure 124 mm[Hg] Robert Schwartz Other [employer] Other Encounters Encounter Date Encounter Type Care Provider Facility Start: 08-07-2025 End: 08-07-2025 Departed Referred Magdalene Goodrich NP-C -Lab [facility] Work Phone: Start: 08-07-2025 End: 08-07-2025 ambulatory Magdalene Goodrich NP-C Work Phone: [facility] Work Phone: Start: 08-07-2025 End: 08-07-2025 Patient encounter procedure Magdalene Goodrich BELT WORKER-C -[facility] Work Phone: Start: 07-16-2025 Patient encounter status Magdalene Goodrich NP-C Work Phone: [facility] Start: 07-06-2025 End: 07-06-2025 Refill Magdalene Goodrich NP Work Phone: [facility] Comment on above: Convulsions, unspeci fied convulsion type (HCC) Start: 06-10-2025 End: 06-10-2025 Bamboo flowsheet Magdalene Goodrich BELT WORKER Work Phone: [facility] Start: 06-10-2025 End: 06-10-2025 Bamboo flowsheet Magdalene Joleen BELT WORKER Work Phone: [facility] Start: 06-10-2025 End: 06-10-2025 ambulatory MAGDALENE JOLEEN Not Available Start: 06-10-2025 End: 06-10-2025 Office outpatient visit 25 minutes Magdalene Goodrich BELT WORKER Work Phone: [facility] Comment on above: Essential (primary) hypertension [...] Start: 05-17-2025 End: 05-18-2025 Refill Magdalene Joleen BELT WORKER Work Phone: [facility] Comment on above: Restless leg syndrom e Start: 05-12-2025 End: 05-12-2025 Refill Magdalene Joleen BELT WORKER Work Phone: [facility] Comment on above: Lumbar back pain; FUENTES (generalized anxiety disorder) Start: 04-10-2025 End: 04-10-2025 Office outpatient visit 25 minutes Magdaleneomar Goodrich BELT WORKER Work Phone: [facility] Comment on above: Type 2 diabetes jennifer itus with stage 3a chronic kidney disease, without long-term current use of insulin (HCC) (CMS/HCC) (Primary Dx); Essential (primary) hypertension (CMS/HCC); FUENTES (generalized anxiety disorder) (CMS/HCC); Lumbar back pain; Current episode of major depressive disorder without prior episode, unspecified depression episode severity (CMS/HCC); Nicotine dependence, cigarettes, uncomplicated; UTI symptoms; Convulsions, unspecified convulsion type ([facility]) Start: 04-10-2025 End: 04-10-2025 ambulatory MAGDALENE JOLEEN Not Available Start: 03-13-2025 End: 03-13-2025 Refill Magdalene Goodrich BELT WORKER Work Phone: [facility] Comment on above: Lumbar back pain Start: 03-11-2025 End: 03-11-2025 Clinisync Result Encounter Generic External Data Provider [facility] External Department Unsolicited Start: 03-11-2025 End: 03-11-2025 Clinisync Result Encounter Generic External Data Provider [facility] External Department Unsolicited Start: 03-06-2025 End: 03-06-2025 Refill Ethan Bonilla MD Work Phone: [facility] Comment on above: Cerebrovascular acci dent (CVA), unspecified mechanism ([facility]) Start: 02-25-2025 End: 02-25-2025 Bamboo flowsheet Magdalene Goodrich BELT WORKER Work Phone: [facility] Start: 02-25-2025 End: 02-25-2025 Bamboo flowsheet Magdaleneomar Goodrich BELT WORKER Work Phone: [facility] Start: 02-25-2025 End: 02-25-2025 Office outpatient visit 25 minutes Magdalene Goodrich BELT WORKER Work Phone: [facility] Comment on above: Essential (primary) hypertension ([facility]) (Primary Dx); Type 2 diabetes mellitus with diabetic chronic kidney disease ([facility]); Essential (hemorrhagic) thrombocythemia; Seizure ([facility]); Restless leg syndrome; Age-related osteoporosis without current pathological fracture ([facility]); Fibromyalgia, primary; Anxiety; Current episode of major depressive disorder without prior episode, unspecified depression episode severity ([facility]); FUENTES (generalized anxiety disorder) ([facility]); Mixed hyperlipidemia ([facility]); Nicotine dependence, cigarettes, uncomplicated Start: 02-25-2025 End: 02-25-2025 ambulatory MAGDALENE AICHHOLZ Not Available Start: 02-24-2025 End: 02-25-2025 Refill Magdalene Aicjenniferholz BELT WORKER Work Phone: [facility] Comment on above: FUENTES (generalized anx iety disorder) (CMS/HCC); Restless leg syndrome Start: 02-19-2025 End: 02-19-2025 Refill Magdalene Aicjenniferholz BELT WORKER Work Phone: [facility] Comment on above: Restless leg syndrom e Start: 02-12-2025 End: 02-12-2025 Refill Magdalene Aichholz BELT WORKER Work Phone: [facility] Comment on above: Lumbar back pain Start: 01-13-2025 End: 01-13-2025 Refill Ethan Bonilla MD Work Phone: [facility] Comment on above: Hyperlipidemia, unsp ecified hyperlipidemia type (CMS/HCC); Lumbar back pain Start: 12-25-2024 End: 12-25-2024 Bamboo flowsheet Andrew Cheathamk BELT WORKER Work Phone: [facility] Start: 12-25-2024 End: 12-25-2024 Bamboo flowsheet Andrew Coytrick BELT WORKER Work Phone: [facility] Start: 12-25-2024 End: 12-25-2024 Office outpatient visit 15 minutes Andrew Church BELT WORKER Work Phone: [facility] Comment on above: FUENTES (generalized anx iety disorder) (CMS/HCC) (Primary Dx); Convulsions, unspecified convulsion type (CMS/HCC); Essential (primary) hypertension (CMS/HCC); Mixed hyperlipidemia (CMS/HCC); Prediabetes Start: 12-25-2024 End: 12-25-2024 ambulatory ANDREW CHURCH Not Available Start: 12-20-2024 End: 12-20-2024 Clinisync Result Encounter Andrew Church BELT WORKER Work Phone: [facility] Unsolicited Start: 12-20-2024 End: 12-20-2024 Clinisync Result Encounter Andrew Barlowzpatrick BELT WORKER Work Phone: [facility] Unsolicited Start: 12-17-2024 End: 12-17-2024 Refill Dot Figueroa MA [facility] Comment on above: Lumbar back pain Start: 11-13-2024 End: 11-13-2024 Refill Andrew Church BELT WORKER Work Phone: [facility] Comment on above: Lumbar back pain; Cerebrovascular accident (CVA), unspecified mechanism (CMS/HCC) Start: 10-14-2024 End: 10-16-2024 Refill Dot Figueroa MA [facility] Comment on above: Lumbar back pain Start: 09-23-2024 End: 09-23-2024 Office outpatient visit 15 minutes Andrew Church BELT WORKER Work Phone: [facility] Comment on above: Prediabetes (Primary Dx); Essential (primary) hypertension (CMS/HCC); Mixed hyperlipidemia (CMS/HCC) Start: 09-23-2024 End: 09-23-2024 ambulatory ANDREW CHURCH Not Available Start: 09-23-2024 End: 09-23-2024 Bamboo flowsheet Andrew Coytrick BELT WORKER Work Phone: [facility] Start: 09-23-2024 End: 09-23-2024 Bamboo flowsheet Andrew Church BELT WORKER Work Phone: [facility] Start: 09-22-2024 ambulatory SAIRA CAMPBELL [facility] Start: 09-11-2024 End: 09-11-2024 Refill Dot Figueroa MA [facility] Comment on above: Lumbar back pain Start: 09-09-2024 End: 09-16-2024 Orders Only Andrew Coytrick BELT WORKER Work Phone: [facility] Comment on above: Type 2 diabetes jennifer itus with chronic kidney disease, without long-term current use of insulin, unspecified CKD stage (CMS/HCC) (Primary Dx) Start: 09-03-2024 End: 09-03-2024 Clinisync Result Encounter Andrew Church BELT WORKER Work Phone: [facility] Unsolicited Start: 09-03-2024 End: 09-03-2024 Clinisync Result Encounter Andrew Church BELT WORKER Work Phone: [facility] Unsolicited Start: 09-03-2024 End: 09-03-2024 Refill Andrew Church BELT WORKER Work Phone: [facility] Comment on above: Restless leg syndrom e Start: 08-13-2024 End: 08-13-2024 Clinisync Result Encounter Generic External Data Provider [facility] External Department Unsolicited Start: 08-13-2024 End: 08-13-2024 Clinisync Result Encounter Generic External Data Provider [facility] External Department Unsolicited Start: 08-06-2024 End: 08-12-2024 Refill Andrew Church BELT WORKER Work Phone: [facility] Comment on above: Lumbar back pain (Pr imary Dx); Hyperlipidemia, unspecified hyperlipidemia type (CMS/HCC); Essential (primary) hypertension (CMS/HCC); Restless leg syndrome; Cerebrovascular accident (CVA), unspecified mechanism (CMS/HCC) Start: 07-24-2024 End: 07-24-2024 Initial preventive medicine new patient 63yrs&> Andrew Church BELT WORKER Work Phone: [facility] Comment on above: Essential (primary) hypertension (CMS/HCC) (Primary Dx); Mixed hyperlipidemia (CMS/HCC); Nicotine dependence, cigarettes, uncomplicated; Cerebrovascular accident (CVA), unspecified mechanism (CMS/HCC) Start: 07-24-2024 End: 07-24-2024 ambulatory ANDREW CHURCH Not Available Start: 07-24-2024 End: 07-24-2024 Bamboo flowsheet Andrew Church BELT WORKER Work Phone: [facility] Start: 07-24-2024 End: 07-24-2024 Bamboo flowsheet Andrew Church BELT WORKER Work Phone: [facility] Start: 07-24-2024 Patient encounter status Janice any Church BELT WORKER Work Phone: [facility] Start: 07-23-2024 Patient encounter status Janice any Church BELT WORKER Work Phone: [facility] Work Phone: Start: 04-02-2024 End: 04-02-2024 ambulatory [facility] Start: 03-26-2024 ambulatory [facility] Facility[facility] Start: 03-25-2024 End: 03-25-2024 Telephone encounter [facility] Start: 02-13-2024 End: 02-13-2024 ambulatory [facility] Work Phone: Start: 02-13-2024 End: 02-13-2024 Patient encounter procedure [facility] Work Phone: Start: 02-12-2024 ambulatory [facility] Start: 02-12-2024 End: 03-18-2024 Telephone encounter [facility] Start: 02-12-2024 ambulatory SAIRA Valente SHANNAN [facility] Start: 02-09-2024 Non-patient / Non-visit [facility] Work Phone: Start: 02-08-2024 End: 02-11-2024 Emergency department patient visit SAIRA Valente SHANNAN [place] [facility] Start: 02-08-2024 Non-patient / Non-visit [facility] Work Phone: Start: 01-15-2024 Non-patient / Non-visit [facility] Work Phone: Start: 12-22-2023 Non-patient / Non-visit [facility] Work Phone: Start: 10-24-2023 End: 10-24-2023 ambulatory Robert Efren Other [employer] Other Start: 10-24-2023 Telephone encounter Robert Schwartz [facility] Start: 09-22-2023 End: 09-22-2023 ambulatory Robert Efren Other [employer] Other Start: 09-22-2023 Telephone encounter Robert Schwartz [facility] Start: 08-23-2023 End: 08-23-2023 ambulatory Robert Efren Other [employer] Other Start: 08-23-2023 Telephone encounter Robert Schwartz [facility] Start: 08-14-2023 End: 08-14-2023 ambulatory Robert Efren Other [employer] Other Start: 08-14-2023 Office outpatient vi sit 15 minutes Robert Efren [facility] Start: 08-14-2023 Telephone encounter Robert Schwartz [facility] Start: 07-24-2023 End: 07-24-2023 ambulatory Robert Schwartz Other [employer] Other Start: 07-24-2023 Telephone encounter Robert Schwartz [facility] Start: 06-23-2023 End: 06-23-2023 ambulatory Robert Schwartz Other [employer] Other Start: 06-23-2023 Telephone encounter Robert Schwartz [facility] Start: 06-12-2023 End: 06-12-2023 ambulatory Robert Schwartz Other [employer] Other Start: 06-12-2023 Telephone encounter Robert Schwartz [facility] Start: 05-16-2023 End: 05-16-2023 ambulatory Robert Schwartz Other [employer] Other Start: 05-16-2023 Office outpatient vi sit 15 minutes Robert Schwartz [facility] Start: 02-24-2023 End: 02-24-2023 ambulatory Robert Schwartz Other [employer] Other Start: 02-24-2023 Telephone encounter Robert Schwartz [facility] Start: 02-13-2023 End: 02-13-2023 ambulatory Fernando Silverio Other [employer] Other Start: 02-13-2023 Telephone encounter Robert Schwartz [facility] Start: 02-09-2023 End: 02-10-[address] ROBERT SCHWARTZ Facility:[facility] Start: 02-07-2023 End: 02-07-2023 ambulatory Robert Schwartz Other [employer] Other Start: 02-07-2023 Office outpatient vi sit 25 minutes Robert Schwartz [facility] Start: 10-18-2022 End: 10-19-[address] ROBERT SCHWARTZ Facility:[facility] Start: 10-14-2022 Pre-procedure evalua tion check Robert Schwartz Other [employer] Other Start: 05-17-2022 End: 05-18-[address] ROBERT SCHWARTZ Facility:[facility] Start: 04-13-2022 End: 04-14-[address] ROBERT SCHWARTZ Facility:[facility] Procedures Date Procedure Procedure Detail Performing Clinician Start: 05-30-2025 ALL CBC WITH AUTO DIFF Generic External Data Provider Start: 04-10-2025 Urnls dip stick/tablet rgnt non-auto w/o micrscp Magdalene Goodrich BELT WORKER Work Phone: Start: 04-10-2025 Hemoglobin glycosylated a1c Magdalene Goodrich BELT WORKER Work Phone: Start: 03-11-2025 ALL CBC WITH AUTO DIFF Generic External Data Provider Start: 12-20-2024 ALL CBC WITH AUTO DIFF Andrew Fitzpatr ick BELT WORKER Work Phone: Start: 09-03-2024 ALL CBC WITH AUTO DIFF Andrew Fitzpatr ick BELT WORKER Work Phone: Start: 08-13-2024 ALL CBC WITH AUTO DIFF Generic External Data Provider Start: 07-24-2024 End: 02-25-2025 H/O: artificial joint Presence of right artificial shoulder joint Andrew Church BELT WORKER Work Phone: Start: 02-08-2024 Bacteria identified in Urine by Culture Start: 11-22-2018 Screening for malignant neoplasm of cervix Robert Efren Other Plan of Treatment Date Care Activity Detail Author Start: 12-10-2026 Glaucoma screening Diabetes: R etinopathy Screening [facility] Start: 03-19-2026 Glaucoma screening Diabetes: R etinopathy Screening [facility] Start: 12-20-2025 Urine screening for protein Diabetes: Urine Protein Screening [facility] Start: 08-07-2025 [facility] Start: 07-24-2025 Medicare Annual Well ness (AWV) Medicare Annual Wellness (AWV) [facility] Start: 07-16-2025 End: 07-16-2025 Patient encounter procedure [facility] Start: 07-11-2025 Hemoglobin A1c measurement Diabetes: Hemoglobin A1C [facility] Start: 07-07-2025 Influenza vaccination Influenza Vacc ine (#1) [facility] Start: 06-10-2025 End: 06-10-2025 Patient encounter procedure 06/10/2025 1:00 PM EDT Office Visit [facility] [address] [place] [phone] Magdalene Goodrich NP [address] [phone] [facility] Start: 04-10-2025 End: 04-10-2025 Patient encounter procedure 04/10/2025 2:00 PM EDT Office Visit [facility] [address], [place] [phone] Magdalene Goodrich NP [address] [place] [phone] [facility] Start: 02-25-2025 End: 02-25-2025 Patient encounter procedure [facility] Comment on above: Seizure (CMS/HCC) (P rimary Dx); Type 2 diabetes mellitus with diabetic chronic kidney disease (CMS/HCC); Essential (hemorrhagic) thrombocythemia; Restless leg syndrome; Essential (primary) hypertension (CMS/HCC); Age-related osteoporosis without current pathological fracture ([facility]/HCC); Fibromyalgia, primary; Anxiety; Current episode of major depressive disorder without prior episode, unspecified depression episode severity ([facility]/HCC); FUENTES (generalized anxiety disorder) ([facility]/HCC); Mixed hyperlipidemia ([facility]); Nicotine dependence, cigarettes, uncomplicated Start: 12-25-2024 End: 12-25-2024 Patient encounter procedure 12/25/2024 2:00 PM EST Office Visit [facility] [address] [phone] Andrew Church NP [address] [place] [address] Arrived [facility] Comment on above: Arrived Start: 12-24-2024 End: 09-23-2025 CBC W Auto Differential panel - Blood CBC and differential Lab Routine Prediabetes Expected: 12/24/2024 (Approximate), Expires: 09/23/2025 [facility] Comment on above: Expected: 12/24/2024 (Approximate), Expires: 09/23/2025 Start: 12-24-2024 End: 09-23-2025 Comprehensive metabolic 2000 panel - Serum or Plasma Comprehensive metabolic panel Lab Routine Prediabetes Expected: 12/24/2024 (Approximate), Expires: 09/23/2025 [facility] Comment on above: Expected: 12/24/2024 (Approximate), Expires: 09/23/2025 Start: 12-24-2024 End: 09-23-2025 Hemoglobin A1c/Hemoglobin.total in Blood Hemoglobin A1c Lab Routine Prediabetes Expected: 12/24/2024 (Approximate), Expires: 09/23/2025 [facility] Comment on above: Expected: 12/24/2024 (Approximate), Expires: 09/23/2025 Start: 12-23-2024 End: 12-23-2024 Patient encounter procedure 12/23/2024 2:00 PM EST Office Visit [facility] [address], [place] [phone] Andrew Church NP [address] [place] [phone] [facility] Start: 09-23-2024 End: 09-23-2024 [facility] [facility] Comment on above: Arrived Start: 08-20-2024 End: 08-20-2024 Patient encounter procedure 08/20/2024 2:40 PM EDT Office Visit [facility] [address] [place] [id number] Ese Brewer NP [address] [place] [address] [facility] Start: 07-24-2024 End: 07-24-2024 Patient encounter procedure 07/24/2024 4:30 PM EDT Office Visit [facility] [address] [place] [phone] Andrew Church NP [address] [place] [phone] Arrived [facility] Comment on above: Arrived Start: 07-24-2024 End: 07-23-2025 CBC W Auto Differential panel - Blood CBC and differential Lab Routine Essential (primary) hypertension (CMS/HCC) Mixed hyperlipidemia (CMS/HCC) Expected: 07/24/2024 (Approximate), Expires: 07/23/2025 [facility] Comment on above: Expected: 07/24/2024 (Approximate), Expires: 07/23/2025 Start: 07-24-2024 End: 07-23-2025 Comprehensive metabolic 2000 panel - Serum or Plasma Comprehensive metabolic panel Lab Routine Essential (primary) hypertension (CMS/HCC) Mixed hyperlipidemia (CMS/HCC) Expected: 07/24/2024 (Approximate), Expires: 07/23/2025 [facility] Comment on above: Expected: 07/24/2024 (Approximate), Expires: 07/23/2025 Start: 07-24-2024 End: 07-23-2025 Hemoglobin A1c/Hemoglobin.total in Blood Hemoglobin A1c Lab Routine Essential (primary) hypertension (CMS/HCC) Mixed hyperlipidemia (CMS/HCC) Cerebrovascular accident (CVA), unspecified mechanism (CMS/HCC) Expected: 07/24/2024 (Approximate), Expires: 07/23/2025 [facility] Comment on above: Expected: 07/24/2024 (Approximate), Expires: 07/23/2025 Start: 07-24-2024 End: 07-23-2025 Lipid 1996 panel - Serum or Plasma Lipid panel Lab Routine Mixed hyperlipidemia (CMS/HCC) Expected: 07/24/2024 (Approximate), Expires: 07/23/2025 [facility] Comment on above: Expected: 07/24/2024 (Approximate), Expires: 07/23/2025 Start: 07-24-2024 End: 07-23-2025 TSH W/REFLEX TO FT4 TSH W/REFLEX TO FT4 Lab Routine Essential (primary) hypertension (CMS/HCC) Expected: 07/24/2024 (Approximate), Expires: 07/23/2025 [facility] Work Phone: Comment on above: Expected: 07/24/2024 (Approximate), Expires: 07/23/2025 Start: 07-07-2024 Influenza vaccination [facility] Start: 02-13-2024 Patient referral [facility] Work Phone: Start: 04-10-2022 Adult BMI Screening Adult BMI Screen [facility] [employer] [facility] Start: 11-12-2014 Pneumococcal Vaccine : 65+ Years (2 of 2 - PCV) Pneumococcal Vaccine: 65+ Years (2 of 2 - PCV) [facility] Start: 2013 Fall Risk Screening Fall Risk Screen ing [facility] Start: 1998 Administration of varicella zoster vaccine Zoster (Shingles) Vaccine (1 of 2) [facility] Start: 1967 DTaP,Tdap and Td Vaccines (1 - Tdap) DTaP,Tdap and Td Vaccines (1 - Tdap) [facility] Start: 1967 Urine screening for protein Diabetes: Urine Protein Screening [facility] Start: 1960 Depression Screening Depression Scre ening [facility] Start: 1960 Tobacco Screening Tobacco Screening [facility] Start: 1958 Glaucoma screening Diabetes: R etinopathy Screening [facility] Start: 1948 Hemoglobin A1c measurement Diabetes: Hemoglobin A1C [facility] Start: 1948 Medicare Annual Well ness Visit Medicare Annual Wellness Visit [facility] Drugs identified in Urine [facility] Microalbumin/Creatin ine panel in random Urine Microalbumin / creatinine urine ratio Lab Routine Prediabetes Ordered: 09/23/2024 [facility] Work Phone: Comment on above: Ordered: 09/23/2024 Patient referral [facility] Work Phone: [place] Lower extremity v ein - left [facility] XR Hip - left 2 Views [facility] Immunizations Immunization Date Immunization Notes Care Provider Raymond wick 08-19-2024 influenza, seasonal, injectable Andrew Church [employer] Work Phone: [facility] 08-19-2024 influenza virus vaccine, unspecified formulation Magdalene Goodrich [employer] Work Phone: [facility] 07-17-2023 Influenza, Seasonal, Quadrivalent, Adjuvanted Magdalene Jhonyz [employer] Work Phone: [facility] 07-17-2023 influenza virus vaccine, unspecified formulation Alena Palacios RN [facility] 08-10-2022 influenza virus vaccine, split virus (incl. purified surface antigen) Robert Schwartz Other [employer] Other 08-10-2022 influenza virus vaccine, unspecified formulation [facility] 08-10-2022 Influenza, High-dose Seasonal, Quadrivalent, Preservative Free Magdalene Aichholz [employer] WORK[employer] Work Phone: [facility] 08-11-2021 Influenza, High-dose Seasonal, Quadrivalent, Preservative Free Magdalene Aichholz [employer] WORK[employer] Work Phone: [facility] 07-20-2020 influenza, high dose seasonal, preservative-free Magdalene Aichholz [employer] WORK[employer] Work Phone: [facility] 07-16-2020 unknown vaccine or immune globulin Magdalene Aichholz BEL[employer] WORK[employer] Work Phone: [facility] 07-25-2019 Seasonal trivalent influenza vaccine, adjuvanted, preservative free Magdalene Aichholz [employer] WORK[employer] Work Phone: [facility] 07-13-2018 influenza, high dose seasonal, preservative-free Magdalene Aichholz BEL[employer] WORK[employer] Work Phone: [facility] 11-12-2013 pneumococcal polysaccharide vaccine, 23 valent Magdalene Aichholz [employer] WORK[employer] Work Phone: [facility] 10-23-2009 novel [id number], preservative-free, injectable Magdalene Aichholz [employer] WORK[employer] Work Phone: [facility] 04-06-2008 pneumococcal polysaccharide vaccine, 23 valent Magdalene Aichholz [employer] WORK[employer] Work Phone: [facility] Payers Date Payer Category Payer Medicare (Managed Care) [employer] [id number] 2019 Medicare [id number] 2017 Medicaid [id number] 1959 Medicaid [id number] 1959 Medicare [id number] [id number] 1948 Unknown [id number] 2.16.840.1.479121.3.579.2. 593 1948 Unknown [id number] 2.16.840.1.157141.3.579.2. 593 1948 Unknown [id number] 2.16.840.1.161932.3.579.2. 593 1948 Unknown [id number] 2.16.840.1.030338.3.579.2. 593 1948 Unknown [id number] 2.16.840.1.899720.3.579.2. 1286 1948 Unknown [id number] 2.16.840.1.021049.3.579.2. 1286 1948 Unknown [id number] 2.16.840.1.525397.3.579.2. 1286 1948 Unknown [id number] 2.16.840.1.882688.3.579.2. 1286 1948 Unknown [id number] 2.16.840.1.983927.3.579.2. 1259 1948 Unknown [id number] 2.16.840.1.713235.3.579.2. 1259 1948 Unknown [id number] 2.16.840.1.004492.3.579.2. 1259 1948 Unknown [id number] 2.16.840.1.052515.3.579.2. 1259 1948 Unknown [id number] 2.16.840.1.231609.3.579.2. 9 1948 Unknown [id number] 2.16.840.1.464032.3.579.2. 1259 Social History Date Type Detail Facility Unknown if ever smoked [employer] Other Start: 07-24-2024 End: 06-10-2025 Sex Assigned At [employer] Other Start: 1950 Sex Assigned At Female F [facility] Start: 04-06-2021 End: 07-24-2024 Tobacco smoking status [facility] Smokes tobacco daily [facility] History of tobacco use Cigarette Smoker [facility] History of tobacco use Passive smoker [facility] Start: 07-24-2024 End: 06-10-2025 Alcoholic beverage intake Lifetime non-drinker (finding) [facility] Start: 07-24-2024 End: 06-10-2025 History of Social function [facility] Start: 1950 Sex assigned at Not on file [facility] Start: 04-06-2021 Tobacco use and exposure Smokeless tobacco non-user [facility] Start: 04-06-2021 Alcoholic beverage intake Current non-drinker of alcohol (finding) [facility] Unknown [facility] Tobacco smoking stat us [facility] Unknown if ever smoked [facility] Work Phone: Sex Female (finding) [facility] Clinical Notes 02-07-2023 to 08-07-2025 Note Date & Type Note Facility 08-07-2025 Evaluation note Diagnosis Onset Date Resolution Essential (primary) hypertension acute August 07 1:10pm Fibromyalgia, primary acute Oct benito 2024 1:10pm FUENTES (generalized anxiety disorder) acute August 07 1:10pm GERD (gastroesophageal reflux disease) acute August 07 1:10pm Hx of deep venous thrombosis acute August 07 1:10pm Hyperlipidemia, unspecified acute August 07 1:10pm Left hip pain acute August 1:10pm Nicotine dependence, cigarettes, uncomplicated acute August 07 1:10pm Other chronic pain acute Octobe r 2024 1:10pm Type 2 diabetes mellitus with diabetic chronic kidney disease acute August 07 1:10pm UTI symptoms acute August 07, 2025 1:10pm [facility] Work Phone: 1(400) 582-130810-02-2025 Hospital Discharge instructionsAmbulatory Orders* AMB POC Ur Dipstick Time Frame: 08/07/25, Location: Determined By Patient [facility] Work Phone: 1(457) 765-902508-05-2025 History of Present illness Narrative* Magdalene Goodrich NP - 06/10/2025 1:00 PM EDT Images from the original note [...] has type 2 diabetes mellitus. Her disease coursehas been stable. Hypoglycemia symptoms include nervousness/anxiousness. Pertinent negatives for hypoglycemia include no dizziness, headaches, seizures or tremors. Pertinent negatives for diabetes incl ude no chest pain, no polydipsia, no polyphagia and no polyuria. There are no hypoglycemic complications. Symptoms are stable. Diabetic complications include peripheral neuropathy. Risk factors for coronary artery disease include diabetes mellitus, dyslipidemia and sedentary lifestyle. Current diabetic treatment includes oral agent (dual therapy). She does not see a lens generator.Eye exam is not current. SUBJECTIVE: MEDICATIONS: Current [...] Epilepsy, unspecified, not intractable, without status epilepticus ([facility]) 09/03/2018 Essential (primary) hypertension FUENTES (generalized anxiety disorder) Hyperlipidemia Insomnia, unspecified Left carpal tunnel syndrome Migraine Nicotine dependence, cigarettes, uncomplicated Restless leg syndrome Stroke (HCC) Past Surgical History: Procedure Laterality Date BILATERAL [...] of the risks of continued smoking: stroke, RI, all forms of cancer, lung disease, and . Options for quitting smoking include: cold turkey, hypnosis, acupuncture, nicotine replacement meds(gum, lozenges, and patches), Buproprion, and Varenicline. At this time pt is encouraged to evaluate their goals for wanting to quit smoking, and reach out toprovider when ready to start this process Other [...] feet frequently monitoring for open wounds , andalso recommend yearly eye exam. Pt should attempt to remain as physically active as chronic conditions allow, as well as trying to follow a diet low in carbohydrates, and simple sugars. Current meds: asa, statin, farxiga, A1c: 5.8% 04/10/25 * Magdalene Goodrich NP - 06/10/2025 6:46 AM EDTAssociated Problem(s): Other chronic pain Is taking oxycodone 7.5mg BID prn for chronic pain * Magdalene Goodrich NP - 06/10/2025 6:45 AM EDTAssociated Problem(s): FUENTES (generalized anxiety disorder) Current meds: xanax, only takes PRN OARRS reviewed Med agreement signed 02/24/25 * Magdalene Goodrich NP - 06/10/2025 6:44 AM EDTAssociated Problem(s): Nicotine dependence, cigarettes, uncomplicated The patient has been advised of the risks of continued smoking: stroke, RI, all forms of cancer, lung disease, and . Options for quitting smoking include: cold turkey, hypnosis, acupuncture, nicotine replacement meds(gum, lozenges, and patches), Buproprion, and Varenicline. At this time pt is encouraged to evaluate their goals for wanting to quit smoking, and reach out toprovider when ready to start this process * Magdalene Goodrich NP - 06/10/2025 6:44 AM EDTAssociated Problem(s): Type 2 diabetes mellitus with diabetic chronic kidney disease (HCC) Check blood sugars daily, notify if <70 or >200. Take medications (pills or insulin) as directed. Monitor for s/s of hypoglycemia (sweaty, dizziness, nausea, vomiting, or shakiness). Watch for increase in thirst, urination, or appetite. Inspect feet frequently monitoring for open wounds , andalso recommend yearly eye exam. Pt should attempt to remain as physically active as chronic conditions allow, as well as trying to follow a diet low in carbohydrates, and simple sugars. Current meds: asa, statin, farxiga, A1c: 5.8% 04/10/25 * Magdalene Goodrich NP - 06/10/2025 6:44 AM EDTAssociated Problem(s): Fibromyalgia, primary gabapentin * Magdalene Goodrich NP - 06/10/2025 6:43 AM EDTAssociated Problem(s): Essential (primary) hypertension Please check blood pressure daily and record DASH diet Limit caffeine Take medication as directed Contact office if chest pain, pressure, dizziness, shortness of breath, swelling legs Recommend slow position changes Current med: b rúal Add lisinopril Log book, rx for bp monitor documented in this [facility]08-05-2025 Instructions* Patient Instructions* Magdalene Goodrich NP - 06/10/2025 1:00 PM EDT Add lisinopril 10mg daily in addition to metoprolol 25mg bid Check blood pressure once a day and record Come back in 1 month and bring the log of readings and blood pressure machine documented in this [facility]06-05-2025 History of Present illness Narrative* Magdalene Goodrich NP - 04/10/2025 2:51 PM EDTAssociated Problem(s): UTI symptoms Will treat with macrobid Fu if not better * Magdalene Goodrich NP - 04/10/2025 2:00 PM EDT Lesly Steve is a 74 y.o. female presents with chief complaint of Diabetes HPI: Chronic back pain: does take opioids and gabapentin, no significant changes in pain levels or pain patterns Diabetes She presents for her follow-up diabetic visit. She has type 2 diabetes mellitus. Her disease coursehas been stable. There are no hypoglycemic associated symptoms. Pertinent negatives for hypoglycemia include no dizziness, headaches, nervousness/anxiousness, seizures or tremors. Associated symptomsinclude polyuria. Pertinent negatives for diabetes include no [...] being taken. She does not see a lens generator.Eye exam is not current. Difficulty Urinating This is a chronic problem. The current episode started in the past 7 days. The problem occurs everyurination. The problem has been gradually worsening. The quality of the pain is described as burning. There has been no fever. She is Not sexually active. There is No history of pyelonephritis. Associated symptoms include urgency. Pertinent negatives include no chills, discharge, flank pain, frequency, hematuria, hesitancy, nausea or vomiting. She has tried nothing for the symptoms. The treatmentprovided no relief. SUBJECTIVE: MEDICATIONS: Current Outpatient Medications [...] Date Age-related osteoporosis without current pathological fracture ([facility]) B12 deficiency Current episode of major depressive disorder without prior episode ([facility]) Epilepsy, unspecified, not intractable, without status epilepticus 09/03/2018 Essential (primary) hypertension ([facility]/HCC) FUENTES (generalized anxiety disorder) ([facility]) Hyperlipidemia ([facility]) Insomnia, unspecified Left carpal tunnel syndrome Migraine Nicotine dependence, cigarettes, uncomplicated Restless leg syndrome Stroke ([facility]/HCC) Past Surgical History: Procedure Laterality Date BILATERAL [...] of the risks of continued smoking: stroke, RI, all forms of cancer, lung disease, and . Options for quitting smoking include: cold turkey, hypnosis, acupuncture, nicotine replacement meds(gum, lozenges, and patches), Buproprion, and Varenicline. At this time pt is encouraged to evaluate their goals for wanting to quit smoking, and reach out toprovider when ready to start this process Type 2 diabetes mellitus with diabetic chronic kidney disease ([facility]/HCC) - Primary Check blood sugars daily, notify if <70 or >200. Take medications (pills or insulin) as directed. Monitor for s/s of hypoglycemia (sweaty, dizziness, nausea, vomiting, or shakiness). Watch for increase in thirst, urination, or appetite. Inspect feet frequently monitoring for open wounds , andalso recommend yearly eye exam. Pt should attempt [...] Other Visit Diagnoses Convulsions, unspecified convulsion type ([facility]) Relevant Medications levETIRAcetam (Keppra) 500 MG tablet * GENA SMITH - 04/10/2025 2:00 PM EDT Past 3 days pt has been having burning and itching with urination, and lower back pain, no fever, no chills, no foul smell, no dark in color, pt is having frequent urination. * Magdalene Goodrich NP - 04/10/2025 7:04 AM EDTAssociated Problem(s): Nicotine dependence, cigarettes, uncomplicated The patient has been advised of the risks of continued smoking: stroke, RI, all forms of cancer, lung disease, and . Options for quitting smoking include: cold turkey, hypnosis, acupuncture, nicotine replacement meds(gum, lozenges, and patches), Buproprion, and Varenicline. At this time pt is encouraged to evaluate their goals for wanting to quit smoking, and reach out toprovider when ready to start this process * Magdalene Goodrich NP - 04/10/2025 7:04 AM EDTAssociated Problem(s): Current episode of major depressive disorder without prior episode ([facility]) At last appt, we discussed if need for grief counseling, she will think about this Current meds: none Overall feels she is doing better * Magdalene Goodrich NP - 04/10/2025 7:03 AM EDTAssociated Problem(s): Type 2 diabetes mellitus with diabetic chronic kidney disease ([facility]) Check blood sugars daily, notify if <70 or >200. Take medications (pills or insulin) as directed. Monitor for s/s of hypoglycemia (sweaty, dizziness, nausea, vomiting, or shakiness). Watch for increase in thirst, urination, or appetite. Inspect feet frequently monitoring for open wounds , andalso recommend yearly eye exam. Pt should attempt to remain as physically active as chronic conditions allow, as well as trying to follow a diet low in carbohydrates, and simple sugars. Current meds: asa, statin, farxiga, A1c: 5.8% 04/10/25 * Magdalene Goodrich NP - 04/10/2025 7:01 AM EDTAssociated Problem(s): Lumbar back pain Takes percocet 7.5 BID Recommend pain mgmt, she is asking to wait about 2 months Is working out social security etc * Magdalene Goodrich NP - 04/10/2025 6:59 AM EDTAssociated Problem(s): FUENTES (generalized anxiety disorder) (CMS/HCC) Current meds: xanax, only takes PRN OARRS reviewed Med agreement signed 02/24/25 * Magdalene Goodrich NP - 04/10/2025 6:59 AM EDTAssociated Problem(s): Essential (primary) hypertension (CMS/HCC) Please check blood pressure daily and record DASH diet Limit caffeine Take medication as directed Contact office if chest pain, pressure, dizziness, shortness of breath, swelling legs Recommend slow position changes Current med: b raúl [id number] History of Present illness Narrative* Magdalene Goodrich NP - 02/25/2025 5:23 PM EDTAssociated Problem(s): Fibromyalgia, primary gabapentin * GENA SMITH - 02/25/2025 2:00 PM EDT Last seen in office on 12/25/24 Hypertension. BP checks at home: Last check was last week 143/84 she was having anxiety, heart racing and palpations. Heart rate was73 FUENTES: Pt was 's primary caregiver, he [...] hip- from carrying more the load since husbandspassing Loss of apatite * Magdalene Goodrich, MICHELLE - 02/25/2025 2:00 PM EDT Lesly Steve is a 74 y.o. female presents with chief complaint of FUENTES HPI: Last seen in office on 12/25/24 Hypertension. BP checks at home: Last check was last week 143/84 she was having anxiety, heart racing and palpations. Heart rate was73 FUENTES: Pt was 's primary caregiver, he [...] hip- from carrying more the load since husbandspassing Loss of appetite Hypertension This is a [...] has type 2 diabetes mellitus. Her disease coursehas been stable. Hypoglycemia symptoms include nervousness/anxiousness. Pertinent negatives for hypoglycemia include no dizziness, headaches, seizures or tremors. Associated symptoms include weight lo ss. Pertinent negatives for diabetes include no blurred vision, no chest pain, no polydipsia, no polyphagia and no polyuria. There are no hypoglycemic complications. Symptoms are stable. Risk factorsfor coronary artery disease include diabetes mellitus, dyslipidemia, [...] Date Age-related osteoporosis without current pathological fracture (CMS/HCC) B12 deficiency Current episode of major depressive disorder without prior episode (CMS/HCC) Epilepsy, unspecified, not intractable, without status epilepticus [...] Visit Age-related osteoporosis without current pathological fracture ([facility]) RESOLVED: Anxiety (Chronic) Current episode of major depressive disorder without prior episode ([facility]/HCC) PHQ 9=12 Current meds: none Discussed if need for grief counseling, she will think about this Essential (primary) hypertension ([facility]/HCC) (Chronic) Please check blood pressure daily and record DASH diet Limit caffeine Take medication as directed Contact office if chest pain, pressure, dizziness, shortness of breath, swelling legs Recommend slow position changes Current med: b raúl FUENTES (generalized anxiety disorder) ([facility]) Current meds: xanax FUENTES 7=11 OARRS reviewed Med agreement signed Fibromyalgia, primary (Chronic) gabapentin Hyperlipidemia, unspecified ([facility]/HCC) On statin therapy Check labs yearly and prn dose chagnes Nicotine dependence, cigarettes, uncomplicated The patient has been advised of the risks of continued smoking: stroke, RI, all forms of cancer, lung disease, and . Options for quitting smoking include: cold turkey, hypnosis, acupuncture, nicotine replacement meds(gum, lozenges, and patches), Buproprion, and Varenicline. At this time pt is encouraged to evaluate their goals for wanting to quit smoking, and reach out toprovider when ready to start this process Restless leg syndrome Is currently taking ropinirole Type 2 diabetes mellitus with diabetic chronic kidney disease ([facility]) Check blood sugars daily, notify if <70 or >200. Take medications (pills or insulin) as directed. Monitor for s/s of hypoglycemia (sweaty, dizziness, nausea, vomiting, or shakiness). Watch for increase in thirst, urination, or appetite. Inspect feet frequently monitoring for open wounds , andalso recommend yearly eye exam. Pt should attempt to remain as physically active as chronic conditions allow, as well as trying to follow a diet low in carbohydrates, and simple sugars. Current meds: asa, statin, farxiga A1c: 5.8 on 12/20/24 Essential (hemorrhagic) thrombocythemia Monitor labs periodically Seizure (CMS/HCC) - Primary (Chronic) Current meds: keppra BID does follow with Neurology * Magdalene Goodrich NP - 02/25/2025 6:57 AM EDTAssociated Problem(s): Nicotine dependence, cigarettes, uncomplicated The patient has been advised of the risks of continued smoking: stroke, RI, all forms of cancer, lung disease, and . Options for quitting smoking include: cold turkey, hypnosis, acupuncture, nicotine replacement meds(gum, lozenges, and patches), Buproprion, and Varenicline. At this time pt is encouraged to evaluate their goals for wanting to quit smoking, and reach out toprovider when ready to start this process * Magdalene Goodrich NP - 02/25/2025 6:57 AM EDTAssociated Problem(s): Hyperlipidemia, unspecified (CMS/HCC) On statin therapy Check labs yearly and prn dose chagnes * Magdalene Goodrich NP - 02/25/2025 6:57 AM EDTAssociated Problem(s): FUENTES (generalized anxiety disorder) (CMS/HCC) Current meds: xanax FUENTES 7=11 OARRS reviewed Med agreement signed * Magdalene Goodrich NP - 02/25/2025 6:56 AM EDTAssociated Problem(s): Current episode of major depressive disorder without prior episode (CMS/HCC) PHQ 9=12 Current meds: none Discussed if need for grief counseling, she will think about this * Magdalene Goodrich NP - 02/25/2025 6:56 AM EDTAssociated Problem(s): Essential (hemorrhagic) thrombocythemia Monitor labs periodically * Magdalene Goodrich NP - 02/25/2025 6:55 AM EDTAssociated Problem(s): Type 2 diabetes mellitus with diabetic chronic kidney disease (CMS/HCC) Check blood sugars daily, notify if <70 or >200. Take medications (pills or insulin) as directed. Monitor for s/s of hypoglycemia (sweaty, dizziness, nausea, vomiting, or shakiness). Watch for increase in thirst, urination, or appetite. Inspect feet frequently monitoring for open wounds , andalso recommend yearly eye exam. Pt should attempt to remain as physically active as chronic conditions allow, as well as trying to follow a diet low in carbohydrates, and simple sugars. Current meds: asa, statin, farxiga A1c: 5.8 on 12/20/24 * Magdalene Goodrich NP - 02/25/2025 6:54 AM EDTAssociated Problem(s): Essential (primary) hypertension (CMS/HCC) Please check blood pressure daily and record DASH diet Limit caffeine Take medication as directed Contact office if chest pain, pressure, dizziness, shortness of breath, swelling legs Recommend slow position changes Current med: b raúl * Magdalene Goodrich NP - 02/25/2025 6:54 AM EDTAssociated Problem(s): Restless leg syndrome Is currently taking ropinirole * Magdalene Goodrich NP - 02/25/2025 6:53 AM EDTAssociated Problem(s): Seizure (CMS/HCC) Current meds: keppra BID does follow with Neurology documented in this encounterResearch Medical Center-Brookside [id number] Instructions* Patient Instructions* Magdalene Goodrich NP - 02/25/2025 2:00 PM EDT No changes in meds If you would like to see a grief counselor I can get you in touch with someone please let me know documented in this encounterResearch Medical Center-Brookside [id number] Telephone encounter Note* Telephone Encounter - GENA SMITH - 02/24/2025 8:42 AM EDT Text Inter Com Servicer This is Lesly Mike, my drLalito is Magdalene, and I need to refill on my xanax. And I have a PIN and sent to [facility] My birthday, 1950. Thank you. [facility] [id number] Miscellaneous Notes* Telephone Encounter - GENA SMITH - 02/24/2025 8:42 AM EDT Text Inter Com Servicer This is Lesly Mike, my dr. is Magdalene, and I need to refill on my xanax. And I have a PIN and sent to [place] [facility] My birthday, 1950. Thank you. documented in this encounterResearch Medical Center-Brookside [id number] History of Present illness Narrative* Andrew Church NP - 12/25/2024 2:17 PM ESTAssociated Problem(s): FUENTES (generalized anxiety disorder) (CMS/HCC) States she has been taking Alprazolam 0.5 mg BID PRN for anxiety for 20 years. Upon looking back into medical records, it does appear patient has been taking Xanax for quite sometime PRN. Will order RX today. Does not take an SSRI or attend therapy. 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 Denies SI/HI. Will set patient up with CCM * Andrew Church NP - 12/25/2024 2:17 PM ESTAssociated Problem(s): Prediabetes A1C 5.8% Currently taking Farxiga 5mg Last Eye Exam done 6 months ago- @ [place], [place] * Andrew Church NP - 12/25/2024 2:16 PM ESTAssociated Problem(s): Hyperlipidemia, unspecified (CMS/HCC) Currently taking atorvastatin 80mg Denies any myalgias. Most recent Lipid Panel 08/2024- WNL Continue current regimen. * Andrew Church NP - 12/25/2024 2:16 PM ESTAssociated Problem(s): Essential (primary) hypertension (CMS/HCC) Currently taking Metoprolol 25mg Checks BP at home; Averages are 130's/70's. Denies orthostatic changes, dizziness, cough, shortness of breath, swelling in extremities. Continue current regimen. Given BP log, advised pt to record BP and bring log back with them to next visit. * Andrew Church NP - 12/25/2024 2:00 PM EST Subjective Patient ID: Lesly Steve is a 74 y.o. female who presents for Follow-up. HPI Specialists: Dr. Tomlin- Anna/Onc for thrombocytosis [...] any myalgias. Most recent Lipid Panel - WNL Continue current regimen. Component Ref Range & [...] ALBUMIN GLOBULIN RATIO 1.1 1.2 Resulting Agency [facility] Prediabetes: A1C 5.8% Currently taking Farxiga 5mg Last Eye Exam done 6 months ago- @ [place], [place] FUENTES: States she has been taking Alprazolam 0.5 mg BID PRN for anxiety for 20 years. Upon looking back into medical records, it does appear patient has been taking Xanax for quite sometime PRN. Will order RX today. Does not [...] Neurological: Negative for dizziness, tremors, syncope, weakness, light- headedness and headaches. Psychiatric/Behavioral: Negative for decreased concentration and suicidal ideas. The patient is notnervous/anxious. Hematological: Does not bruise/bleed easily. Endocrine: Negative [...] patient has been taking Xanax for quite sometime PRN. Will order RX today. Does not [...] Eye Exam done 6 months ago- @ [place], [place] documented in this [facility]02-11-2025 Telephone encounter Note* Telephone Encounter - Dot Figueroa MA - 12/17/2024 1:58 PM EST MARILIN:09/23/2024 NOV:12/23/2024 [facility] [id number] Miscellaneous Notes* Telephone Encounter - Dot Figueroa MA - 12/17/2024 1:58 PM EST MARILIN:09/23/2024 NOV:12/23/2024 documented in this [facility]12-09-2024 Telephone encounter Note* Telephone Encounter - Dot Figueroa MA - 10/14/2024 11:37 AM EST MARILIN:09/23/2024 NOV:12/23/2024 [facility] [id number] Miscellaneous Notes* Telephone Encounter - Dot Figueroa MA - 10/14/2024 11:37 AM EST MARILIN:09/23/2024 NOV:12/23/2024 documented in this [facility]11-19-2024 History of Present illness Narrative* Andrew Church NP - 09/24/2024 12:58 PM ESTAssociated Problem(s): Prediabetes A1C 6.1% Currently taking Farxiga 5mg Last Eye Exam done 6 months ago- @ [place], [place] * Andrew Church NP - 09/24/2024 12:57 PM ESTAssociated Problem(s): Type 2 diabetes mellitus with chronic kidney disease, without long-term current use of insulin (HCC) (CMS/HCC) * Andrew Church NP - 09/24/2024 12:57 PM ESTAssociated Problem(s): Hyperlipidemia, unspecified (CMS/HCC) Currently taking atorvastatin 80mg Denies any myalgias. Continue current regimen. * Andrew Church NP - 09/24/2024 12:56 PM ESTAssociated Problem(s): Essential (primary) hypertension (CMS/HCC) Currently taking Metoprolol 25mg Checks BP at home; Averages are 130's/70's. Denies orthostatic changes, dizziness, cough, shortness of breath, swelling in extremities. Continue current regimen. Given BP log, advised pt to record BP and bring log back with them to next visit. * Andrew Church NP - 09/23/2024 2:30 PM EST Images from the original note were not [...] ALBUMIN GLOBULIN RATIO 1.1 1.2 Resulting Agency [facility] Prediabetes: A1C 6.1% Currently taking Farxiga 5mg Last Eye Exam done 6 months ago- @ [place], [place] Was seen in ED for CVA concerns due to muscle cramps. CT head negative. Labs all WNL except reported slighlty elevated BUN/[employer]. Pt reports she was dehydrated but feels [...] Neurological: Negative for dizziness, tremors, syncope, weakness, light- headedness and headaches. Psychiatric/Behavioral: Negative for decreased concentration and suicidal ideas. The patient is notnervous/anxious. Hematological: Does not bruise/bleed easily. Endocrine: Negative [...] Eye Exam done 6 months ago- @ [place], [place] Relevant Orders Microalbumin / creatinine urine ratio Hemoglobin A1c Comprehensive metabolic panel CBC and differential documented in this [facility]11-06-2024 Telephone encounter Note* Telephone Encounter - Dot Figueroa MA - 09/11/2024 10:08 AM EST MARILIN:07/24/2024 NOV:09/24/2024 [facility] [id number] Miscellaneous Notes* Telephone Encounter - Dot Figueroa MA - 09/11/2024 10:08 AM EST MARILIN:07/24/2024 NOV:09/24/2024 documented in this [facility]09-18-2024 History of Present illness Narrative* Andrew Church NP - 07/24/2024 6:51 PM EDTAssociated Problem(s): Nicotine dependence, cigarettes, uncomplicated Smoking cessation counseling provided. * Andrew Church NP - 07/24/2024 6:48 PM EDTAssociated Problem(s): Stroke (CMS/HCC) Had CVA in 02/[address] Barber and Dr. Johnson Cardiolgy * Andrew Church NP - 07/24/2024 6:48 PM EDTAssociated Problem(s): Hyperlipidemia, unspecified (CMS/HCC) Currently taking Atorvastatin 80mg Denies any myalgias. Check Lipid Panel Continue current regimen. * Andrew Church NP - 07/24/2024 6:47 PM EDTAssociated Problem(s): Essential (primary) hypertension (CMS/HCC) Currently taking Metoprolol 25mg Checks BP at home; Averages are 130's/140's Denies orthostatic changes, dizziness, cough, shortness of breath, swelling in extremities. Continue current regimen. Given BP log, advised pt to record BP and bring log back with them to next visit. * Andrew Church NP - 07/24/2024 4:30 PM EDT Images from the original note [...] of preventative Care- Will request results form [facility] and Dr. Schwartz Review of Systems [...] Neurological: Negative for dizziness, tremors, syncope, weakness, light- headedness and headaches. Psychiatric/Behavioral: Negative for decreased concentration and suicidal ideas. The patient is notnervous/anxious. Hematological: Does not bruise/bleed easily. Endocrine: Negative [...] dependence, cigarettes, uncomplicated Smoking cessation counseling provided. * Andrew Church NP - 07/23/2024 9:24 PM EDTAssociated Problem(s): Encounter for wellness examination I have reviewed Ht/Wt/BMI, I have reviewed recommended vaccines for patient's age, as well as all recommended screenings I have reviewed available care everywhere notes as well. I have recommended eating a balanced diet,as well as activity as chronic conditions allow It is recommended that the patient have a yearly eye exam, as well as twice a year dental exams Fu in this office for wellness on a yearly basis Diet: Eat three meals per day. Breakfast, lunch, and dinner. Avoid snacking. Avoid eating after 5/6pm. Daily protein GOAL 35% of your intake; [...] of sleep per night. documented in this encounterResearch Medical Center-Brookside [id number] Instructions* Patient Instructions* Andrew Church NP - 07/24/2024 4:30 PM [...] and dinner. Avoid snacking. Avoid eating after 5/6pm. Daily protein GOAL 35% of your intake; 30g per meal. Daily calorie GOAL 1,800-2,000 per day. Consider tracking your food intake on MySummlyinessPal or LoseIt Water: Increase water intake; GOAL [...] of sleep per night. documented in this encounterResearch Medical Center-Brookside [id number] [facility] Chief Complaint: New patient here to establish care. Ref from Dr. Schwartz for bradycardia. She had stroke last month and was admitted to [facility]. Still smokes almost 1 PPD but is trying to cut back. Says she's had mitral valve prolapse forever . Does feel palpitations at times. Thinks she used to see cardiology in [place] years ago. Denies chest pain, SOB, and [...] year ago. She used to see a mink rancher several years ago for what she describes [...] clinic following testing Jaron Johnson MD, MPH, [facility], [facility], [facility] Interventional Cardiology Pager Email: [email or web address]05-20-2024 Miscellaneous Notes* Telephone Encounter - Alena Palacios RN - 03/25/2024 9:55 AM EDT error [facility] Telephone encounter Note* Telephone Encounter - Alena Palacios RN - 03/25/2024 9:55 AM EDT error [facility]04-08-2024 Miscellaneous Notes* Telephone Encounter - Alena Palacios RN - 02/12/2024 11:11 AM EDT ----- Message from Cyndie Frankel PA-C sent at 02/09/2024 1:09 PM EDT ----- Regarding: [facility] Follow up Hospital follow up. Left > R multifocal cerebral ischemic stroke, suspected cardioembolic. 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 Smoker. Expressive aphasia. Needs 30 day cardiac event monitor. Please arrange to be sent to patient house. 4-6 week follow up with [facility]/Juan/Dr. Rose/Stroke Fellow * Telephone Encounter - Dolores Leos - 02/12/2024 11:11 AM EDT Called patient and no answer, VM not set up. * Telephone Encounter - Dolores Leos - 02/12/2024 11:11 AM EDT Spoke with patient and she said to call her sister to schedule appt Called [place] and there was no answer vm was full * Telephone Encounter - Alena Palacios RN - 02/12/2024 11:11 AM EDT Dolores, when you talk to family, please let them know event monitor was sent to patient's home address and ask for patient to wear it please. * Telephone Encounter - Dolores Leos - 02/12/2024 11:11 AM EDT Called [place] and no answer, her mailbox was full. Will try back * Telephone Encounter - Dolores Leos - 02/12/2024 11:11 AM EDT Called [place] and the line answered only to disconnect * Telephone Encounter - Dolores Leos - 02/12/2024 11:11 AM EDT Called [place] 2x goes straight to VM which is full and can't leave messages Called patient and she hung up documented in this encounterK[facility]04-08-2024 Telephone encounter Note* Telephone Encounter - Alena Palacios RN - 02/12/2024 11:11 AM EDT ----- Message from Cyndie Frankel PA-C sent at 02/09/2024 1:09 PM EDT ----- Regarding: [facility] up [facility] follow up. Left > R multifocal cerebral ischemic stroke, suspected cardioembolic. 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 Smoker. Expressive aphasia. Needs 30 day cardiac event monitor. Please arrange to be sent to patient house. 4-6 week follow up with [facility]/Juan/Dr. Rose/Stroke Fellow [facility]04-08-2024 Telephone encounter Note* Telephone Encounter - Dolores Leos - 02/12/2024 11:11 AM EDT Called patient and no answer, VM not set up. [facility]04-08-2024 Telephone encounter Note* Telephone Encounter - Dolores Leos - 02/12/2024 11:11 AM EDT Spoke with patient and she said to call her sister to schedule appt Called [place] and there was no answer vm was full [facility]04-08-2024 Telephone encounter Note* Telephone Encounter - Alena Palacios RN - 02/12/2024 11:11 AM EDT Dolores, when you talk to family, please let them know event monitor was sent to patient's home address and ask for patient to wear it please. [facility]04-08-2024 Telephone encounter Note* Telephone Encounter - Dolores Leos - 02/12/2024 11:11 AM EDT Called [place] and no answer, her mailbox was full. Will try back [employer]04-08-2024 Telephone encounter Note* Telephone Encounter - Dolores Leos - 02/12/2024 11:11 AM EDT Called [place] and the line answered only to disconnect [employer]04-08-2024 Telephone encounter Note* Telephone Encounter - Dolores Leos - 02/12/2024 11:11 AM EDT Called [place] 2x goes straight to which is full and can't leave messages Called patient and she hung up [employer]10-09-2023 Evaluation note* Encounter Date Diagnosis Assessment Notes Treatment Notes Treatment Clinical Notes Aug, LLQ abdominal pain (ICD-10 - R10.32) Reviewed paperwork and test results from [facility] ER. She agrees she needs a colonoscopy due to ongoing blood in her stool and LLQ pain. Agrees to referral to Dr. Stevenson. Aug, Hematochezia (ICD-10 - K92.1) as above [employer] Other 04-06-2023 NotePROCEDURE: XR HIP LT 2 [...] Electronically authenticated by: RAIN HOWE Date: 2023-02-09 11:04[facility]04-04-[facility] Evaluation note* Encounter Date Diagnosis Assessment Notes [...] OARRS and reviewed pain contract brii Grace. [employer] Other Evaluation noteNo InformationNort [employer] Other Evaluation noteNoEnval Other Evaluation note* Diagnosis Onset Date Resolution Status Seizure acute Stroke acute [facility] Work Phone: Evaluation note* Diagnosis [...] cigarettes, uncomplicated Cerebrovascular accident (CVA), unspecified mechanism ([facility]/HCC) Type 2 diabetes mellitus with chronic kidney [...] [facility] HealthcareEvaluation note* Diagnosis Essential (primary) hypertension ([facility]/HCC)- Primary Unspecified essential hypertension Mixed hyperlipidemia ([facility]/HCC) Mixed hyperlipidemia Nicotine dependence, cigarettes, uncomplicated Cerebrovascular accident (CVA), unspecified mechanism ([facility]/HCC) Prediabetes- Primary Other abnormal glucose Essential (primary) hypertension ([facility]/HCC) Unspecified essential hypertension Mixed hyperlipidemia ([facility]/HCC) Mixed hyperlipidemia Lumbar back pain Lumbago documented in this encounter [facility] HealthcareEvaluation [facility]* Diagnosis Essential (primary) hypertension (CMS/HCC)- Primary Unspecified essential hypertension Mixed hyperlipidemia (CMS/HCC) Mixed hyperlipidemia Nicotine dependence, cigarettes, uncomplicated Cerebrovascular accident (CVA), unspecified mechanism (CMS/HCC) documented in this encounter [facility]Evaluation [facility]* Diagnosis Essential (primary) hypertension ([facility]/HCC)- Primary Unspecified essential hypertension Mixed hyperlipidemia ([facility]/HCC) Mixed hyperlipidemia Nicotine dependence, cigarettes, uncomplicated Cerebrovascular accident (CVA), unspecified mechanism ([facility]/HCC) Prediabetes- Primary Other abnormal glucose Essential (primary) hypertension (CMS/HCC) Unspecified essential hypertension Mixed hyperlipidemia ([facility]/HCC) Mixed hyperlipidemia Lumbar back pain Lumbago Cerebrovascular accident (CVA), unspecified mechanism (CMS/HCC) documented in this encounter [facility]* Diagnosis Essential (primary) hypertension ([facility]/HCC)- Primary Unspecified essential hypertension Mixed hyperlipidemia ([facility]/HCC) Mixed hyperlipidemia Nicotine dependence, cigarettes, uncomplicated Cerebrovascular accident (CVA), unspecified mechanism ([facility]/HCC) Prediabetes- Primary Other abnormal glucose Essential (primary) hypertension (CMS/HCC) Unspecified essential hypertension Mixed hyperlipidemia ([facility]/HCC) Mixed hyperlipidemia FUENTES (generalized anxiety disorder) ([facility]/HCC)- Primary Generalized anxiety disorder Convulsions, unspecified convulsion type (CMS/HCC) Essential (primary) hypertension ([facility]/HCC) Unspecified essential hypertension Mixed hyperlipidemia ([facility]/HCC) Mixed hyperlipidemia Prediabetes Other abnormal glucose documented in this encounter [facility]* Diagnosis Essential (primary) hypertension ([facility]/HCC)- Primary Unspecified essential hypertension Mixed hyperlipidemia ([facility]/HCC) Mixed hyperlipidemia Nicotine dependence, cigarettes, uncomplicated Cerebrovascular accident (CVA), unspecified mechanism (CMS/HCC) Prediabetes- Primary Other abnormal glucose Essential (primary) hypertension (CMS/HCC) Unspecified essential hypertension Mixed hyperlipidemia (CMS/HCC) Mixed hyperlipidemia FUENTES (generalized anxiety disorder) ([facility])- Primary Generalized anxiety disorder Convulsions, unspecified convulsion type ([facility]/HCC) Essential (primary) hypertension ([facility]/HCC) Unspecified essential hypertension Mixed hyperlipidemia ([facility]) Mixed hyperlipidemia Prediabetes Other abnormal glucose Hyperlipidemia, unspecified hyperlipidemia type ([facility]) Lumbar back pain Lumbago documented in this encounter [facility]Evaluation [facility]* Diagnosis Essential (primary) hypertension ([facility]/HCC)- Primary Unspecified essential hypertension Mixed hyperlipidemia ([facility]/HCC) Mixed hyperlipidemia Nicotine dependence, cigarettes, uncomplicated Cerebrovascular accident (CVA), unspecified mechanism ([facility]/HCC) Prediabetes- Primary Other abnormal glucose Essential (primary) hypertension ([facility]/HCC) Unspecified essential hypertension Mixed hyperlipidemia ([facility]/HCC) Mixed hyperlipidemia FUENTES (generalized anxiety disorder) ([facility])- Primary Generalized anxiety disorder Convulsions, unspecified convulsion type ([facility]/HCC) Essential (primary) hypertension ([facility]/HCC) Unspecified essential hypertension Mixed hyperlipidemia ([facility]/HCC) Mixed hyperlipidemia Prediabetes Other abnormal glucose Lumbar back pain Lumbago documented in this encounter [facility]* Diagnosis Essential (primary) hypertension ([facility]/HCC)- Primary Unspecified essential hypertension Mixed hyperlipidemia ([facility]/HCC) Mixed hyperlipidemia Nicotine dependence, cigarettes, uncomplicated Cerebrovascular accident (CVA), unspecified mechanism ([facility]/HCC) Prediabetes- Primary Other abnormal glucose Essential (primary) hypertension ([facility]/HCC) Unspecified essential hypertension Mixed hyperlipidemia ([facility]/HCC) Mixed hyperlipidemia FUENTES (generalized anxiety disorder) ([facility]/HCC)- Primary Generalized anxiety disorder Convulsions, unspecified convulsion type ([facility]/HCC) Essential (primary) hypertension ([facility]/HCC) Unspecified essential hypertension Mixed hyperlipidemia ([facility]) Mixed hyperlipidemia Prediabetes Other abnormal glucose Restless leg syndrome Restless legs syndrome (RLS) documented in this encounter [facility]* Diagnosis Essential (primary) hypertension ([facility])- Primary Unspecified essential hypertension Mixed hyperlipidemia ([facility]) Mixed hyperlipidemia Nicotine dependence, cigarettes, uncomplicated Cerebrovascular accident (CVA), unspecified mechanism ([facility]) Prediabetes- Primary Other abnormal glucose Essential (primary) hypertension ([facility]) Unspecified essential hypertension Mixed hyperlipidemia ([facility]) Mixed hyperlipidemia FUENTES (generalized anxiety disorder) ([facility])- Primary Generalized anxiety disorder Convulsions, unspecified convulsion type ([facility]) Essential (primary) hypertension ([facility]) Unspecified essential hypertension Mixed hyperlipidemia ([facility]) Mixed hyperlipidemia Prediabetes Other abnormal glucose FUENTES (generalized anxiety disorder) ([facility]) Generalized anxiety disorder Restless leg syndrome Restless legs syndrome (RLS) Seizure ([facility])- Primary Other convulsions Type 2 diabetes mellitus with diabetic chronic kidney disease ([facility]) Essential (hemorrhagic) thrombocythemia Restless leg syndrome Restless legs syndrome (RLS) Essential (primary) hypertension ([facility]) Unspecified essential hypertension Age-related osteoporosis without current pathological fracture ([facility]) Fibromyalgia, primary Anxiety Anxiety state, unspecified Current episode of major depressive disorder without prior episode, unspecified depression episode severity ([facility]) FUENTES (generalized anxiety disorder) ([facility]) Generalized anxiety disorder Mixed hyperlipidemia ([facility]) Mixed hyperlipidemia Nicotine dependence, cigarettes, uncomplicated [facility] in [facility] encounter [facility] Diagnosis Essential (primary) hypertension ([facility])- Primary Unspecified essential hypertension Mixed hyperlipidemia ([facility]) Mixed hyperlipidemia Nicotine dependence, cigarettes, uncomplicated Cerebrovascular accident (CVA), unspecified mechanism ([facility]) Prediabetes- Primary Other abnormal glucose Essential (primary) hypertension ([facility]) Unspecified essential hypertension Mixed hyperlipidemia ([facility]) Mixed hyperlipidemia FUENTES (generalized anxiety disorder) ([facility])- Primary Generalized anxiety disorder Convulsions, unspecified convulsion type ([facility]) Essential (primary) hypertension ([facility]) Unspecified essential hypertension Mixed hyperlipidemia ([facility]) Mixed hyperlipidemia Prediabetes Other abnormal glucose Essential (primary) hypertension ([facility])- Primary Unspecified essential hypertension Type 2 diabetes mellitus with diabetic chronic kidney disease ([facility]) Essential (hemorrhagic) thrombocythemia Seizure ([facility]) Other convulsions Restless leg syndrome Restless legs syndrome (RLS) Age-related osteoporosis without current pathological fracture ([facility]) Fibromyalgia, primary Anxiety Anxiety state, unspecified Current episode of major depressive disorder without prior episode, unspecified depression episode severity ([facility]) FUENTES (generalized anxiety disorder) ([facility]) Generalized anxiety disorder Mixed hyperlipidemia ([facility]) Mixed hyperlipidemia Nicotine dependence, cigarettes, uncomplicated documented in this encounter [facility]Evaluation [facility]* Diagnosis Essential (primary) hypertension ([facility])- Primary Unspecified essential hypertension Mixed hyperlipidemia ([facility]) Mixed hyperlipidemia Nicotine dependence, cigarettes, uncomplicated Cerebrovascular accident (CVA), unspecified mechanism ([facility]) Prediabetes- Primary Other abnormal glucose Essential (primary) hypertension ([facility]) Unspecified essential hypertension Mixed hyperlipidemia ([facility]) Mixed hyperlipidemia FUENTES (generalized anxiety disorder) ([facility])- Primary Generalized anxiety disorder Convulsions, unspecified convulsion type ([facility]) Essential (primary) hypertension ([facility]) Unspecified essential hypertension Mixed hyperlipidemia ([facility]) Mixed hyperlipidemia Prediabetes Other abnormal glucose Essential (primary) hypertension ([facility])- Primary Unspecified essential hypertension Type 2 diabetes mellitus with diabetic chronic kidney disease ([facility]) Essential (hemorrhagic) thrombocythemia Seizure ([facility]) Other convulsions Restless leg syndrome Restless legs syndrome (RLS) Age-related osteoporosis without current pathological fracture ([facility]) Fibromyalgia, primary Anxiety Anxiety state, unspecified Current episode of major depressive disorder without prior episode, unspecified depression episode severity ([facility]) FUENTES (generalized anxiety disorder) ([facility]) Generalized anxiety disorder Mixed hyperlipidemia ([facility]) Mixed hyperlipidemia Nicotine dependence, cigarettes, uncomplicated Cerebrovascular accident (CVA), unspecified mechanism ([facility]) documented in this encounter [facility] Diagnosis Essential (primary) hypertension ([facility])- Primary Unspecified essential hypertension Mixed hyperlipidemia ([facility]) Mixed hyperlipidemia Nicotine dependence, cigarettes, uncomplicated Cerebrovascular accident (CVA), unspecified mechanism ([facility]) Prediabetes- Primary Other abnormal glucose Essential (primary) hypertension ([facility]) Unspecified essential hypertension Mixed hyperlipidemia ([facility]) Mixed hyperlipidemia FUENTES (generalized anxiety disorder) ([facility])- Primary Generalized anxiety disorder Convulsions, unspecified convulsion type ([facility]) Essential (primary) hypertension ([facility]) Unspecified essential hypertension Mixed hyperlipidemia ([facility]) Mixed hyperlipidemia Prediabetes Other abnormal glucose Essential (primary) hypertension ([facility])- Primary Unspecified essential hypertension Type 2 diabetes mellitus with diabetic chronic kidney disease ([facility]) Essential (hemorrhagic) thrombocythemia Seizure ([facility]) Other convulsions Restless leg syndrome Restless legs syndrome (RLS) Age-related osteoporosis without current pathological fracture ([facility]) Fibromyalgia, primary Anxiety Anxiety state, unspecified Current episode of major depressive disorder without prior episode, unspecified depression episode severity ([facility]) FUENTES (generalized anxiety disorder) ([facility]) Generalized anxiety disorder Mixed hyperlipidemia ([facility]) Mixed hyperlipidemia Nicotine dependence, cigarettes, uncomplicated Lumbar back pain Lumbago documented in this encounter [facility] HealthcareEvaluation note* Diagnosis Essential (primary) hypertension ([facility])- Primary Unspecified essential hypertension Mixed hyperlipidemia ([facility]) Mixed hyperlipidemia Nicotine dependence, cigarettes, uncomplicated Cerebrovascular accident (CVA), unspecified mechanism ([facility]) Prediabetes- Primary Other abnormal glucose Essential (primary) hypertension ([facility]) Unspecified essential hypertension Mixed hyperlipidemia ([facility]) Mixed hyperlipidemia FUENTES (generalized anxiety disorder) ([facility])- Primary Generalized anxiety disorder Convulsions, unspecified convulsion type ([facility]) Essential (primary) hypertension ([facility] Unspecified essential hypertension Mixed hyperlipidemia ([facility]) Mixed hyperlipidemia Prediabetes Other abnormal glucose Essential (primary) hypertension ([facility])- Primary Unspecified essential hypertension Type 2 diabetes mellitus with diabetic chronic kidney disease ([facility]) Essential (hemorrhagic) thrombocythemia Seizure ([facility]) Other convulsions Restless leg syndrome Restless legs syndrome (RLS) Age-related osteoporosis without current pathological fracture ([facility]) Fibromyalgia, primary Anxiety Anxiety state, unspecified Current episode of major depressive disorder without prior episode, unspecified depression episode severity ([facility]) FUENTES (generalized anxiety disorder) ([facility]) Generalized anxiety disorder Mixed hyperlipidemia ([facility]) Mixed hyperlipidemia Nicotine dependence, cigarettes, uncomplicated Type 2 diabetes mellitus with stage 3a chronic kidney disease, without long-term current use of insulin (HCC) ([facility])- Primary Essential (primary) hypertension ([facility]) Unspecified essential hypertension FUENTES (generalized anxiety disorder) (CMS/HCC) Generalized anxiety disorder Lumbar back pain Lumbago Current episode of major depressive disorder without prior episode, unspecified depression episode severity (CMS/HCC) Nicotine dependence, cigarettes, uncomplicated UTI symptoms Convulsions, unspecified convulsion type (CMS/HCC) documented in this encounter [facility] HealthcareEvaluation note* Diagnosis Essential (primary) hypertension- Primary [...] Generalized anxiety disorder documented in this encounter [facility] HealthcareEvaluation note* Diagnosis Essential (primary) hypertension- Primary [...] UTI symptoms acute August 07, 2025 1:10pm [facility] Work Phone: History general Narrative - Reported* [...] HAND RECONSTRUCTION Hospitalization History SEE SURGICAL HX [facility] [employer] Other [facility] [employer] Other Hospital Discharge instructionsAmbulatory Orders* Referral to Neurology Time Frame: 02/13/24, Location: None Selected [facility] Work Phone: InstructionsNot on filedocumented in this encounter [facility]InstructionsNot on filedocumented in this encounter [facility] SystemReason for referral (narrative)No reason for referral information availableUniversity [facility] Work Phone: Summary Purpose Family History No Family History Records Found Relationship Condition Age at Onset Recorded Date/T sam father Unknown Not Specified Unknown Relationship Condition Age at Onset Recorded Date/T sam father Unknown mother Unknown Advance Directives No Advanced Directives Records Found Advance Directive Response Recorded Date/ Time Advance Directives No February 12 10:17am Date Activated Date Inactivated Comments 04/06/2021 3:19 AM 04/10/2021 6:20 PM Advance Directive Response Recorded Date/ Time Advance Directives No August 07, 2025 2:10pm Reason for Referral Reason Needs colonosco py - had imaging in [facility] ER. Diagnosis 1 LLQ abdominal pain ( R10.32) Referral Organization Replaced by [facility] Referring Provider First Name Robert Referring Provider Last Name Efren Referring Provider Specialty Family [facility] cine Referred Organization [facility] Referred Provider Flakito Stevenson Referred Address [address], [place],[address] Referred Provider Specialty General Surg hunter Referral Priority Routine General Notes Maida Dave 02:01:18 PM >received today, attachments made, waiting for notes to be locked Chief Complaint and Reason for Visit Chief Complaint Amb Documentation Amb Documentation [facility] Reason for Visit Seizure Stroke Chief [...] and content) DATE CREATED AUTHOR 02/18/2023 [facility] DATE CREATED AUTHOR AUTHOR'S ORGANIZ ATION 02/13/2024 [facility] DATE CREATED AUTHOR AUTHOR'S ORGANIZ ATION 03/28/2024 [facility] DATE CREATED AUTHOR AUTHOR'S ORGANIZ ATION 04/03/2024 [facility] DATE CREATED AUTHOR AUTHOR'S ORGANIZ ATION 09/30/2024 [facility] DATE CREATED AUTHOR AUTHOR'S ORGANIZ ATION 06/13/2025 [facility] EPIC DATE CREATED AUTHOR AUTHOR'S ORGANIZ ATION 08/12/2025 [facility] Care Teams (unrecognized sec tion and content) [...] February 13, 2024 End: February 13, 2024 Yarn Comber Relationship Specialty Start Date End Date Robert Schwartz MD [address] [place] [address] PCP - General Family Medicine 03/25/24 Yarn Comber Relationship Specialty Start Date End Date Robert Schwartz MD [address] [place] [address] PCP - General Family Medicine 03/25/24 Yarn Comber Relationship Specialty Start Date End Date Ethan Bonilla MD [address] [place], [place] [address] PCP - General Family Medicine 08/15/24 Andrew Church NP [address] [place], [place] [address] Nurse Practitioner Family Medicine 08/15/24 Yarn Comber Relationship Specialty Start Date End Date Ethan Bonilla MD [address] [place], [place] [address] PCP - General Family Medicine 08/15/24 Andrew Church NP [address] [place], [place] [address] Nurse Practitioner Family Medicine 08/15/24 Yarn Comber Relationship Specialty Start Date End Date Ethan Bonilla MD [address] [place] [address] PCP - General Family Medicine 08/15/24 Andrew Church NP [address] [place], [place] [address] Nurse Practitioner Family Medicine 08/15/24 Yarn Comber Relationship Specialty Start Date End Date Ethan Bonilla MD [address] [place], [place] [address] PCP - General Family Medicine 08/15/24 Andrew Church NP [address] [place] [address] Nurse Practitioner Family Medicine 08/15/24 Yarn Comber Relationship Specialty Start Date End Date Ethan Bonilla MD [address] [place], [place] [phone] PCP - General Family Medicine 08/15/24 Andrew Church NP [address] [place] [address] Nurse Practitioner Family Medicine 08/15/24 Yarn Comber Relationship Specialty Start Date End Date Robert Schwartz MD [address] [place] [address] PCP - General Family Medicine 03/25/24 Yarn Comber Relationship Specialty Start Date End Date Ethan Bonilla MD [address] [place] [phone] PCP - General Family Medicine 08/15/24 Andrew Church NP [address] [place] [address] Nurse Practitioner Family Medicine 08/15/24 Yarn Comber Relationship Specialty Start Date End Date Robert Schwartz MD [address] [place] [address] PCP - General Family Medicine 03/25/24 Yarn Comber Relationship Specialty Start Date End Date Ethan Bonilla MD [address] [place], [place] [phone] PCP - General Family Medicine 08/15/24 Andrew Church NP [address] [place] [address] Nurse Practitioner Family Medicine 08/15/24 Yarn Comber Relationship Specialty Start Date End Date Ethan Bonilla MD [address] [place], [place] [address] PCP - General Family Medicine 08/15/24 Andrew Church NP [address] [place] [phone] Nurse Practitioner Family Medicine 08/15/24 Yarn Comber Relationship Specialty Start Date End Date Saira Campbell DO [address] [place] [address], [address] [place] [address] PCP - General 12/28/17 Yarn Comber Relationship Specialty Start Date End Date Saira Campbell DO [address] [place] [address], [address] [place] [address] PCP - General 12/28/17 Yarn Comber Relationship Specialty Start Date End Date Ethan Bonilla MD [address] [place] [address] PCP - General Family Medicine 08/15/24 Andrew Church NP [address] [place] [address] Nurse Practitioner Family Medicine 08/15/24 Yarn Comber Relationship Specialty Start Date End Date Ethan Bonilla MD [address] [place] [address] PCP - General Family Medicine 08/15/24 Andrew Church NP [address] [place], [place] [address] Nurse Practitioner Family Medicine 08/15/24 Yarn Comber Relationship Specialty Start Date End Date Ethan Bonilla MD [address] [place] [address] PCP - General Family Medicine 08/15/24 Andrew Church NP [address] [place] [address] Nurse Practitioner Family Medicine 08/15/24 Yarn Comber Relationship Specialty Start Date End Date Ethan Bonilla MD [address] [place] [address] PCP - General Family Medicine 08/15/24 Andrew Church NP [address] [place] [address] Nurse Practitioner Family Medicine 08/15/24 Yarn Comber Relationship Specialty Start Date End Date Ethan Bonilla MD [address] [place] [address] PCP - General Family Medicine 08/15/24 Andrew Church NP [address] [place] [address] Nurse Practitioner Family Medicine 08/15/24 Yarn Comber Relationship Specialty Start Date End Date Ethan Bonilla MD [address] [place] [phone] PCP - General Family Medicine 08/15/24 Andrew Church NP [address] [place] [phone] Nurse Practitioner Family Medicine 08/15/24 Yarn Comber Relationship Specialty Start Date End Date Ethan Bonilla MD [address] [place] [phone] PCP - General Family Medicine 08/15/24 Andrew Church NP [address] [place] [phone] Nurse Practitioner Family Medicine 08/15/24 Yarn Comber Relationship Specialty Start Date End Date Ethan Bonilla MD [address] [place] [phone] PCP - General Family Medicine 08/15/24 Andrew Church NP [address] [place], [place] [phone] Nurse Practitioner Family Medicine 08/15/24 Yarn Comber Relationship Specialty Start Date End Date Ethan Bonilla MD [address] [place] [phone] PCP - General Family Medicine 08/15/24 Andrew Church NP [address] [place], [place] [phone] Nurse Practitioner Family Medicine 08/15/24 Yarn Comber Relationship Specialty Start Date End Date Ethan Bonilla MD [address] [place] [phone] PCP - General Family Medicine 08/15/24 Andrew Church NP [address] [place], [place] [phone] Nurse Practitioner Family Medicine 08/15/24 Yarn Comber Relationship Specialty Start Date End Date Ethan Bonilla MD [address] [place] [address] PCP - General Family Medicine 08/15/24 Andrew Church NP [address] [place], [place] [phone] Nurse Practitioner Family Medicine 08/15/24 Yarn Comber Relationship Specialty Start Date End Date Ethan Bonilla MD [address] [place], [place] [address] PCP - General Family Medicine 08/15/24 Andrew Church NP [address] [place] [phone] Nurse Practitioner Family Medicine 08/15/24 Yarn Comber Relationship Specialty Start Date End Date Ethan Bonilla MD [address] [place] [phone] PCP - General Family Medicine 08/15/24 Andrew Church NP [address] [place], [place] [phone] Nurse Practitioner Family Medicine 08/15/24 Yarn Comber Relationship Specialty Start Date End Date Ethan Bonilla MD [address] [place] [phone] PCP - General Family Medicine 08/15/24 Andrew Church NP [address] [place], [place] [phone] Nurse Practitioner Family Medicine 08/15/24 Yarn Comber Relationship Specialty Start Date End Date Ethan Bonilla MD [address] [place], [place] [phone] PCP - General Family Medicine 08/15/24 Andrew Church NP [address] [place] [phone] Nurse Practitioner Family Medicine 08/15/24 Yarn Comber Relationship Specialty Start Date End Date Ethan Bonilla MD [address] [place] [phone] PCP - General Family Medicine 08/15/24 Andrew Church NP [address] [place] [place] [address] Nurse Practitioner Family Medicine 08/15/24 Team Status: Active Member Role Status Dates YOLANDA Miller Primary Care Provider Active Team Status: Inactive Member Role Status Dates YOLANDA Miller Primary Care Provider Active Start: August 07, 2025 End: August 07, 2025 YOLANDA Miller Attending Provider Active Start: August 07, 2025 End: August 07, 2025 Team Status: Inactive Member Role Status Dates [...] BE BASED ON THE PRIMARY CLINICAL RECORDS. [employer] provides no warranty or guarantee of the accuracy or completeness of information in this document.
== END 2025-08-09 23:59 | disposition home or self-care (01) ==
LOC: US 08-15 06:37
PROVIDERS: PCP Nurse Practitioner; Visit Provider Nurse Practitioner
DX: M25.552 Pain in left hip (principal); Z86.718 Personal history of other venous thrombosis and embolism
CPT/HCPCS: 93971

== ENCOUNTER 2025-08-19 13:32 | Outpatient (OUT) | payer MEDICARE, MEDICAID, SELFPAY ==
--- OUTSIDE RECORDS SUMMARY | 2024-12-31 09:30 | XMS_ITS ---
Author Organization The [facility] in [place] Address [address] [place] [address] Care Team Providers Care Machine Rough Rounder Name Role Phone Olga Holloway Primary Care Provider Lakia Valenzuela Unavailable [phone] REASON FOR VISIT MD Encounters Encounter Location Date Provider Diagnosis [facility] [address] [place] [address] 12/31/2024 Lakia Tomlin Plan Of Treatment Next Appt Details Provider Name:Lakia Tomlin , 09/02/2025 03:00:00 PM, [address] [place], [address], Progress Notes * Jazmin STEVEYousifOB:1950 (75 yo F)Acc No.[id number]:12/31/2024 UNLOCKED PROGRESS NOTE Progress Notes Patient: Lesly IZAGUIRRE Provider: Presley Tomlin M.D. :1950 A ge:74 Y S ex:Female Date:12/31/2024 Address:[address] [place], [place] Pcp:Olga Holloway Subjective: * Chief Complaints: * 1 . MD. * Medical History: Objective: * Vitals: Assessment: Plan: * Treatment: * * Electronic signature of Tesha Tomlin MD, [id number] on 08/19/2025 at 01:40 PM EDT Sign off status: Pending Visit Status: A [facility] (Voice) * Provider: Presley Tomlin M.D. Date: 0 12/31/2024 Generated for Riaz escobedo/Octavio/Sofia on: 1 01:40 PM EDT
--- OUTSIDE RECORDS SUMMARY | 2025-02-25 10:00 | XMS_ITS ---
Author Organization The [facility] in [place] Address [address] [place] [address] Care Team Providers Care Lead Application Architect Name Role Phone Olga Holloway Primary Care Provider Lakia Valenzuela Unavailable [phone] REASON FOR VISIT MD Encounters Encounter Location Date Provider Diagnosis The [facility] Oncology [address] [place] [address] 02/25/2025 Lakia Tomlin Plan Of Treatment Next Appt Details Provider Name:Lakia Tomlin , 09/02/2025 03:00:00 PM, [address] [place], [address], Progress Notes * Jazmin STEVEYousifOB:1950 (75 yo F)Acc No.[id number]:02/25/2025 UNLOCKED PROGRESS NOTE Progress Notes Patient: Lesly IZAGUIRRE Provider: Presley Tomlin M.D. :1950 A ge:74 Y S ex:Female Date:02/25/2025 Address:[address] [place], [place] Pcp:Olga Holloway Subjective: * Chief Complaints: * 1 . MD. * Medical History: Objective: * Vitals: Assessment: Plan: * Treatment: * * Electronic signature of Tesha Tomlin MD, [id number] on 08/19/2025 at 01:40 PM EDT Sign off status: Pending Visit Status: C ANC (Cancelled) * Provider: Presley Tomlin M.D. Date: 0 02/25/2025 Generated for Riaz escobedo/Octavio/Sofia on: 1 01:40 PM EDT
--- OUTSIDE RECORDS SUMMARY | 2025-03-11 09:15 | XMS_ITS ---
Author Organization The [facility] in [place] Address [address] [place] [address] Care Team Providers Care Tooth Cutter Spur Name Role Phone Olga Holloway Primary Care Provider Lakia Valenzuela Unavailable [phone] REASON FOR VISIT MD Encounters Encounter Location Date Provider Diagnosis [facility] Oncology [address] [place] [address] 03/11/2025 Lakia Tomlin Plan Of Treatment Next Appt Details Provider Name:Lakia Tomlin , 09/02/2025 03:00:00 PM, [address] [place], [address], Progress Notes * Jazmin STEVEYousifOB:1950 (75 yo F)Acc No.[id number]:03/11/2025 UNLOCKED PROGRESS NOTE Progress Notes Patient: Lesly IZAGUIRRE Provider: Presley Tomlin M.D. :1950 A ge:74 Y S ex:Female Date:03/11/2025 Address:[address] [place] [place], [place]-[address] Pcp:Olga Holloway Subjective: * Chief Complaints: * 1 . MD. * Medical History: Objective: * Vitals: Assessment: Plan: * Treatment: * * Electronic signature of Tesha Tomlin MD, [id number] on 08/19/2025 at 01:39 PM EDT Sign off status: Pending Visit Status: Fernando CHUAG (Voice) * Provider: Presley Tomlin M.D. Date: 0 03/11/2025 Generated for Riaz escobedo/Octavio/Sofia on: 1 01:39 PM EDT
--- OUTSIDE RECORDS SUMMARY | 2025-05-20 06:30 | XMS_ITS ---
Author Organization The [facility] in [place] Address [address] [place] [address] Care Team Providers Care Rice Farmworker Name Role Phone Olga Holloway Primary Care Provider Lakia Valenzuela Unavailable [phone] REASON FOR VISIT MD Encounters Encounter Location Date Provider Diagnosis [facility] Oncology [address] [place] [address] 05/20/2025 Lakia Tomlin Plan Of Treatment Next Appt Details Provider Name:Lakia Tomlin , 09/02/2025 03:00:00 PM, [address] [place], [address], Progress Notes * Jazmin STEVEYousifOB:1950 (75 yo F)Acc No.[id number]:05/20/2025 UNLOCKED PROGRESS NOTE Progress Notes Patient: Lesly IZAGUIRRE Provider: Presley Tomlin M.D. :1950 A ge:74 Y S ex:Female Date:05/20/2025 Address:[address] [place], [place]-[address] Pcp:Olga Holloway Subjective: * Chief Complaints: * 1 . MD. * Medical History: Objective: * Vitals: Assessment: Plan: * Treatment: * * Electronic signature of Tesha Tomlin MD, [id number] on 08/19/2025 at 01:39 PM EDT Sign off status: Pending Visit Status: C ANC (Cancelled) * Provider: Presley Tomlin M.D. Date: 0 05/20/2025 Generated for Riaz escobedo/Octavio/Sofia on: 1 01:39 PM EDT
--- OUTSIDE RECORDS SUMMARY | 2025-06-03 11:00 | XMS_ITS ---
Author Organization The [facility] in [place] Address [address] [place] [address] Care Team Providers Care Head Knitting Machine Fixer Name Role Phone Olga Holloway Primary Care Provider Lakia Valenzuela Unavailable [phone] REASON FOR VISIT MD Encounters Encounter Location Date Provider Diagnosis [facility] Oncology [address] [place] [address] 06/03/2025 Lakia Tomlin Plan Of Treatment Next Appt Details Provider Name:Lakia Tomlin , 09/02/2025 03:00:00 PM, [address] [place], [address], Progress Notes * Jazmin STEVEYousifOB:1950 (75 yo F)Acc No.[id number]:06/03/2025 UNLOCKED PROGRESS NOTE Progress Notes Patient: Lesly IZAGUIRRE Provider: Presley Tomlin M.D. :1950 A ge:74 Y S ex:Female Date:06/03/2025 Address:[address] [place], [place] Pcp:Olga Holloway Subjective: * Chief Complaints: * 1 . MD. * Medical History: Objective: * Vitals: Assessment: Plan: * Treatment: * * Electronic signature of Tesha Tomlin MD, [id number] on 08/19/2025 at 01:39 PM EDT Sign off status: Pending Visit Status: A [facility] (Voice) * Provider: Presley Tomlin M.D. Date: 0 06/03/2025 Generated for Riaz escobedo/Octavio/Sofia on: 1 01:39 PM EDT
--- OUTSIDE RECORDS SUMMARY | 2025-08-07 20:33 | XMS_ITS | Continuity of Care Document ---
Author Organization [facility] Address [address] [place] [address] Phone Care Team Providers Care Cnc Operator Name Role Phone Magdalene Goodrich PLATE ROLLER-C Primary Care Provider Magdalene Goodrich NP-C Attending Provider Care Teams Visit Care Team Team Status: Inactive Member Role Status Dates YOLANDA Miller Primary Care Provider Active Start: August 07, 2025 End: August 07, 2025 YOLANDA Miller Attending Provider Active Start: August 07, 2025 End: August 07, 2025 Patient Care Team Team Status: Inactive Member Role Status Dates YOLANDA Miller Attending Provider Active Start: August 07, 2025 End: August 07, 2025 Chief Complaint and Reason for Visit Chief Complaint Admit Date August 07, 2025 1: 10pm Reason for Visit Admit Date Essential (primary) hypertension August 07, 2025 1:10pm Fibromyalgia, primary August 07, 2025 1:10pm FUENTES (generalized anxiety disorder) Octob er 2024 1:10pm GERD (gastroesophageal reflux disease) O ctober 2024 1:10pm Hx of deep venous thrombosis August 1:10pm Hyperlipidemia, unspecified August 07, 2025 1:10pm Left hip pain August 07, 2025 1: 10pm Nicotine dependence, cigarettes, uncompl icated August 07, 2025 1:10pm Other chronic pain August 07, 2025 1: 10pm Type 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 August 07, 2025 1:10pm UTI symptoms August 07, 2025 1: 10pm Allergies, Adverse Reactions, Alerts Allergen Type Severity Reaction Last Updated Verified Status Comments nickel Allergy Unknown Hives March 19, 2024 2:26pm Yes Active penicillin G benzathine Allergy Unknown Hives March 19, 2024 2:26pm Yes Active Penicillins Allergy Unknown Hives March 19, 2024 2:26pm Yes Active phenobarbital Allergy Unknown Hives March 19, 2024 2:26pm Yes Active phenytoin Allergy Unknown Hives March 19, 2024 2:26pm Yes Active zinc Allergy Unknown Hives March 19, 2024 2:26pm Yes Active PHENobarbital *HYPNOTICS/SEDAT Allergy Unknown Hives February 13, 2024 11:33am No Active Free Text Allergy: PHENobarbital *HYPNOTICS/SEDAT ANN/SLEEP DISORDER Social History Smoking Status Unknown if ever smoked Observation Status Observation Response Date of Response Legal Sex Female (finding) Sex Assigned At Female June h, 1950 Family History Relationship Condition Age at Onset Recorded Date/T sam father Unknown mother Unknown Problems Active Problems Medical Problem Onset Date Status Hx of deep venous thrombosis Unknown Act jayesh Arthritis of right glenohumeral joint Unknown Active Current episode of major dep ressive disorder without prior episode Unknown Active Insomnia, unspecified Unknown Active FUENTES (generalized anxiety disorder) Unknown Active Type 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 Unknown Active Age-related osteoporosis wit hout current pathological fracture September 03, 2018 Active Epilepsy, unspecified, not i ntractable, without status epilepticus September 03, 2018 Active Left carpal tunnel syndrome Unknown Acti ve Nicotine dependence, cigarettes, uncomplicated U nknown Active Aphasia Unknown Active Rupture of right rotator cuff Unknown Ac tive Fatigue Unknown Active UTI symptoms Unknown Active B12 deficiency Unknown Active Essential (hemorrhagic) thrombocythemia Unknown Active Anxiety Unknown Active Bradycardia Unknown Active Eczema Unknown Active Encounter for wellness examination Unknown Active Migraine Unknown Active Hyperlipidemia, unspecified Unknown Acti ve Other chronic pain Unknown Active Restless leg syndrome Unknown Active Seizure Unknown Active Thrombocytosis Unknown Active Essential (primary) hypertension Unknown Active Lumbar back pain Unknown Active Fibromyalgia, primary Unknown Active Left hip pain Unknown Active Drug-induced acute pancreati tis without infection or necrosis Unknown Active GERD (gastroesophageal reflux disease) Unknown Active Glaucoma Unknown Active Hypotension Unknown Active Stroke Unknown Active Medications Medication Status Dose Units Route Directions Qty Days St art Date Stop Date End Date Instructions Adherence Oxybutynin Chloride 5 mg tablet Discont inued 5 MG PO Every 8 hours 270 Februa ry 2023 1:00am Decem susan 2023 5:53p m Levetiracet am 500 mg tablet Discont inued 0 .ROUTE .COMPLEX 180 January 15, 2024 1:09pm March 19, 2024 2:27p m TAKE 1 TABLET BY MOUTH TWICE A DAY Ropinirole 0.5 mg tablet Discont inued 0 .ROUTE .COMPLEX January 19, 2024 8:33am February 13, 2024 11:34 am TAKE 1 TABLET BY MOUTH 1 TO 3 HOURS BEFORE BEDTIME DAILY 90 Alprazolam 1 mg tablet Discont inued 1 MG PO Twice daily 60 January 22, 2024 3:55pm February 22, 2024 2:23p m Oxycodone-A cetaminophe n 7.5-325 mg tablet Discont inued 1 TAB PO Three times daily as needed for pain January 22, 2024 February 22, 2024 2:21p m Simvastatin 40 mg tablet Discont inued 0 .ROUTE .COMPLEX January 31, 2024 8:43am March 19, 2024 2:40p m TAKE 1 TABLET BY MOUTH EVERY DAY IN THE EVENING FOR 90 DAYS Venlafaxine 37.5 mg capsule,ext ended release 24hr Discont inued 0 .ROUTE .COMPLEX February 06, 2024 8:55am February 13, 2024 11:35 am TAKE 1 CAPSULE BY MOUTH EVERY DAY Oxycodone-A cetaminophe n 5-325 mg tablet Discont inued 1 TAB PO Three times daily as needed for pain 90 February 22, 2024 March 20, 2024 1:15p m Alprazolam 0.5 mg tablet Discont inued 0.5 MG PO Twice daily as needed for anxiety 60 February 22, 2024 12:00a m March 21, 2024 12:08 pm Oxycodone-A cetaminophe n 5-325 mg tablet Discont inued 1 TAB PO Twice daily as needed for pain 60 March 20, 2024 March 20, 2024 1:16p m Oxycodone-A cetaminophe n 5-325 mg tablet Discont inued 1 TAB PO Twice daily as needed for pain 60 30 March 23, 2024 April 23, 2024 8:32a m Alprazolam 0.5 mg tablet Discont inued 0.5 MG PO Twice daily as needed for anxiety 60 30 March 21, 2024 12:08p m April 23, 2024 8:32a m Alprazolam 0.5 mg tablet Discont inued 0.5 MG PO Twice daily as needed for anxiety 14 7 April 23, 2024 8:31am Octob er 2024 2:11p m Oxycodone-A cetaminophe n 5-325 mg tablet Discont inued 1 TAB PO Twice daily as needed for pain 14 April 23, 2024 [facility] 2024 12:31 pm Oxybutynin Chloride 5 mg tablet Active 5 MG PO Every 8 hours 270 [facility] er 2023 5:53pm Unknown Alprazolam 1 mg tablet Discont inued 1 MG PO Twice daily 2023 1:00am 2023 1:59p m Oxycodone-A cetaminophe n 7.5-325 mg tablet Discont inued 1 TAB PO Three times daily 2023 1:00am 2023 1:59p m Alprazolam 1 mg tablet Discont inued 1 MG PO Twice daily 60 30 2023 1:58pm January 22, 2024 3:55p m Oxycodone-A cetaminophe n 7.5-325 mg tablet Discont inued 1 TAB PO Three times daily as needed for pain 90 30 2023January 22, 2024 3:55p m Buspirone 10 mg tablet Discont inued 10 MG PO Twice daily February 09, 2024 12:00a m February 13, 2024 11:33 am Gabapentin 300 mg capsule Discont inued 300 MG PO Three times daily February 09, 2024 12:00a m [facility] 2024 12:31 pm Metoprolol Tartrate 25 mg tablet Active 25 MG PO Twice daily February 09, 2024 12:00a m Unknown Gabapentin 300 mg capsule Active 300 MG PO Daily 2024 12:30p m Unknown Atorvastati n 40 mg tablet Discont inued 40 MG PO Daily March 19, 2024 12:00a m [facility] 2024 10:01 am Atorvastati n (Lipitor) 20 mg tablet Discont inued 20 MG PO Daily March 19, 2024 12:00a m [facility] 2024 12:28 pm Aspirin 325 mg tablet Active 325 MG PO Daily March 19, 2024 12:00a m Unknown Atorvastati n 40 mg tablet Discont inued 80 MG PO Daily Jul 2024 9:58am [facility] 2024 12:29 pm Atorvastati n 80 mg tablet Active 80 MG PO Daily at bedtime 2024 12:00a m Unknown Dapaglifloz in Propanediol (Farxiga) 5 mg tablet Active 5 MG PO Daily 2024 12:00a m Unknown Oxycodone-A cetaminophe n 7.5-325 mg tablet Discont inued 1 TAB PO Twice daily as needed 2024 12:00a m Octob er 2024 2:11p m Alprazolam 0.5 mg tablet Active 0.5 MG PO Twice daily as needed for anxiety 60 30 Octobe r 2024 2:10pm Unknown Oxycodone-A cetaminophe n 7.5-325 mg tablet Active 1 TAB PO Twice daily as needed for pain 60 30 Octobe r 2024 Unknown Levetiracet am 500 mg tablet Discont inued 500 MG PO Twice daily January 15, 2024 12:00a m January 15, 2024 1:09p m Ropinirole 0.5 mg tablet Discont inued 0.5 MG PO January 19, 2024 12:00a m January 19, 2024 8:33a m TAKE 1 TABLET BY MOUTH 1 TO 3 HOURS BEFORE BEDTIME DAILY Simvastatin 40 mg tablet Discont inued 40 MG PO Daily January 30, 2024 12:00a m January 31, 2024 8:43a m Venlafaxine 37.5 mg capsule,ext ended release 24hr Discont inued 37.5 MG PO Daily February 02, 2024 12:00a m February 06, 2024 8:55a m Latanoprost (Xalatan) 0.005 % drops Active 1 DROPS EYE-JACKELINE TH Daily 2024 12:00a m Unknown Hydroxyurea (Hydrea) 500 mg capsule Active 500 MG PO Twice daily 2024 12:00a m Unknown Levetiracet am (Keppra) 500 mg tablet Active 500 MG PO Twice daily 2024 12:00a m Unknown Ropinirole 0.5 mg tablet Active 0.5 MG PO Daily 2024 12:00a m Unknown Lisinopril 10 mg tablet Active 10 MG PO Daily 2024 12:00a m Unknown Immunizations Immunization Event Date Not Given Reason Dose Number Stallion Keeper Lot Number Vaccine Information Statement (VIS) Detail Administration Location influenza, unspecified formulation August 10, 2022 Vital Signs Vital Reading Result Reference Range Collection Date/Time Height 64 [in_i] August 07 1:22pm Weight 62.31 kg August 07 1:22pm Body Temperature 98 [degF] 97.6-99.0 August 1:22pm Heart Rate 59 /min 60-100 August 07 1:22pm Respiratory rate 16 /min -August 1:22pm Oxygen saturation by Pulse oximetry 95 % 95-100 August 07, 2025 1: 22pm BP Systolic 150 mm[Hg] 100-140 August 07 1:22pm BP Diastolic 90 mm[Hg] 60-100 August 07 1:22pm BMI (Body Mass Index) 23.6 kg/m2 Octobe r 2024 1:22pm Advance Directives Advance Directive Response Recorded Date/ Time Advance Directives No August 07, 2025 2:10pm Insurance Providers Guarantor Lesly Steve Address [address] [place] [address] [place] [address] Contact Info. Home Phone: Payer Policy Id Subscriber's Name Subscriber Id Effectiv e Date Expiration Date Medicaid [id number] Lesly Steve [id number] [facility] [id number] Lesly Steve [id number] Encounters Encounter Location(s) Arrival/Admit Date Discharge/Depart Date Provider(s) Departed Physician/Prov ider Office Visit -[facility] [place] August 07, 2025 1:10pm August 07, 2025 2:09pm YOLANDA Miller Departed Referred -Lab [facility] August 07, 2025 2:00pm August 07, 2025 2:01pm YOLANDA Miller Recent Diagnosis Onset Date Admit Date Essential (primary) hypertension Unknown August 07, 2025 1:10pm Fibromyalgia, primary Unknown August 1:10pm FUENTES (generalized anxiety disorder) Unknown August 07, 2025 1:10pm GERD (gastroesophageal reflux disease) Unknown August 07, 2025 1:10pm Hx of deep venous thrombosis Unknown Aug 1:10pm Hyperlipidemia, unspecified Unknown Augo 2024 1:10pm Left hip pain Unknown August 07 1:10pm Nicotine dependence, cigarettes, uncomplicated U nknown August 07, 2025 1:10pm Other chronic pain Unknown August 07, 2025 1:10pm Type 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 Unknown August 07, 2025 1:10pm UTI symptoms Unknown August 07 1:10pm Assessments Diagnosis Onset Date Resolution Status Admit Date Essential (primary) hypertension acute August 07 1:10pm Fibromyalgia, primary acute Aug 1:10pm FUENTES (generalized anxiety disorder) acute August 07 1:10pm GERD (gastroesophageal reflu x disease) acute August 07 1:10pm Hx of deep venous thrombosis acute August 07, 2025 1:10pm Hyperlipidemia, unspecified acute August 07, 2025 1:10pm Left hip pain acute August 1:10pm Nicotine dependence, cigarettes, uncomplicated acute Octobe r 2024 1:10pm Other chronic pain acute Octobe r 2024 1:10pm Type 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 acute August 07, 2025 1:10pm UTI symptoms acute August 07, 2025 1:10pm Plan of Treatment Author Magdalene Goodrich [facility] Authored August 07, 2025 3: 08pm Please check blood pressure daily and record DASH diet Limit caffeine Take medication as directed Contact office if chest pain, pressures, dizziness, shortness of breath, swelling in the legs Recommend slow position changes if you develop dizziness with position changes current meds: lisinopril and b raúl current meds: xanax prn med agreement:yes UDS:yes, +oxy, neg benzo ( took only a sliver of this am today), will send out OARRS: yes on benzos for several years Recommendations: freq small meals, nothing to eat or drink at least 2 hours prior to bed, limit caffeine, alcohol, as well as spicy foods. Meds to limit or avoid if possible: NSAIDS Elevate the HOB if possible on statin therapy check labs yearly and prn dose changes takes gabapentin daily Check blood sugars daily, notify the office if <70 or > 200. Take medications (pills or insulin) as directed. Monitor for s/s of low blood sugar (sweaty, dizziness, nausea, vomiting, or shakiness). Watch for increase thirst, urination, and appetite as these can be signs of high blood sugar. Inspect your feet frequently monitor for open wounds, wear proper fitting shoes as well. Pt should attempt to remain as physical active as chronic conditions allow, as well as trying to follow a diet lower in carbohydrates, and simple sugars. current meds: asa, statin, farxiga, sammy a1c: 5.8% on 04/10/25 currently taking oxycodone 7.5mg BID spinal stenosis: chronic back pain, right LE radiculopathy discussion about detention mgmt of this, I would like her to see pain mgmt to help us possibly control her pain more with less pain medicaiton sxs likely related to farxiga as her urine dip does not appear to have UTI check xray order US Future Tests Future scheduled test information is unavailable Pending Tests Test Name Ordered Date Scheduled Date Urine Drug Screen (T) August 07, 2025 2:00pm XR hip LT min 2V(w/wo pelvis)* August 07, 2025 1:52pm US venous duplex LE LT August 07, 2025 1:53pm Future Visits Future appointment information is unavailable Referrals to Other Providers Referral information is unavailable Future Procedures Procedure Name Ordered Date Scheduled Date Toxassure, Urine August 07, 2025 8:06pm Octobe r 2024 2:00pm Future Medications Future medication information is unavailable Patient Instructions Patient instructions are unavailable
--- OUTSIDE RECORDS SUMMARY | 2025-08-19 13:39 | XMS_ITS | Encounter Summary ---
Author Organization [facility] Address [address] [place] [address] Care Team Providers Care Firepot Operator And Tender Name Role Phone Ethan Bonilla MD Primary Care Provider [phone] Keira Church DISHING MACHINE OPERATOR Unavailable [phone] Encounter Details Date Type Department Care Team (Late st Contact Info) Description 12/10/2024 Orders Only [facility] [address] [place] [phone] Keira Church NP Social History Tobacco Use [...] Region Laterality Modality Head Other Keira Church DISHING MACHINE OPERATOR OPHTH PHOTOGRAPHY Final Result documented in this encounter Visit Diagnoses Not on filedocumented in this encounter Additional Health Concerns Assessment Noted Time PHQ-9 Depression Total Score: 8 07/24/20 24 4:18 PM EDT documented as of this encounter Care Teams Firepot Operator And Tender Relationship Specialty Start Date End Date Ethan Bonilla MD PCP - General Family Medicine 08/15/24 Keira Church NP Nurse Practitioner Family Medicine 08/15/24 documented as of this encounter
--- OUTSIDE RECORDS SUMMARY | 2025-08-19 13:39 | XMS_ITS | Encounter Summary ---
Author Organization [facility] Address [address] [facility] [place] [address] Care Team Providers Care College Tutor Name Role Phone Ethan Bonilla MD Primary Care Provider [phone] Keira Church BUTADIENE COMPRESSOR OPERATOR Unavailable [phone] Encounter Details Date Type Department Care Team (Late st Contact Info) Description 02/26/2025 Abstract [facility] [address] [place] [address] Magdalene Goodrich NP [address] [place] [place] [address] Social History Tobacco Use Types Packs/Day Years [...] documented as of this encounter Care Teams College Tutor Relationship Specialty Start Date End Date Ethan Bonilla MD PCP - General Family Medicine 08/15/24 Keira Church NP Nurse Practitioner Family Medicine 08/15/24 documented as of this encounter
--- OUTSIDE RECORDS SUMMARY | 2025-08-19 13:40 | XMS_ITS | Patient Health Record ---
Author Organization [facility] [place] in [place] Address [address] [place] [address] Care Team Providers Care Specialist Physicians Name Role Phone Olga Holloway Primary Care Provider Lakia Valenzuela Unavailable [phone] Allergies Allergen (clinical drug ingredient) Drug/Non Drug Allergy documented on EMR Reaction Allergy Type Onset Date Status phenytoin Dilantin Unknown Drug Allergy Active Zinc Unknown Drug Allergy Active nickel Nickel Unknown Allergy Active phenobarbital Phenobarbital Unknown Drug Allergy Active Penicillin Unknown Drug Allergy Active Results Component Value Reference Range Notes IRON AND TIBC (Not yet revie wed by provider) Interpretation: Performing Lab: Notes/Report: [facility] , Iron 87.0 50.0-170.0 ug/dL Total Iron Binding Capacity 283.0 250.0-450.0 u g/dL Percent Iron Saturation 30.7 Performing Lab: see note ML - [facility] LB PROF 14(COMP METB) (Not yet reviewed by provider) Interpretation: Performing Lab: Notes/Report: [facility] , Sodium 140 136-145 mmol/L Potassium 4.1 [...] 1.1 Performing Lab: see note ML - [facility] LB Vitamin B12 (Not yet reviewe d by provider) Interpretation: Performing Lab: Notes/Report: [facility] , Vitamin B12 747 762-9923 pg/mL Operator And Truck Driver: Sylvain Ralph PhD, Phone: [phone] Performed at: - [facility] [address] [phone] Performing Lab: see note - [facility] LB CBC AUTO DIFF (Not yet revie wed by provider) Interpretation: Performing Lab: Notes/Report: [facility] , White Blood Count 6.2 4.0-11.0 10 [...] Performing Lab: see note ML - [facility] LB FERRITIN (Not yet reviewed b y provider) Interpretation: Performing Lab: Notes/Report: [facility] , Ferritin 95.0 8.0-252.0 ng/mL Performing Lab: see note ML - [facility] LB FOLATE (Not yet reviewed by provider) Interpretation: Performing Lab: Notes/Report: [facility] , Folate 16.40 8.60-58.90 ng/mL Performing Lab: see note ML - [facility] LB IRON AND TIBC (Not yet revie wed by provider) Interpretation: Performing Lab: Notes/Report: [facility] , Iron 77.0 50.0-170.0 ug/dL Total Iron Binding Capacity 332.0 250.0-450.0 u g/dL Percent Iron Saturation 23.2 Performing Lab: see note ML - [facility] LB PROF CHEM 8 (BAS METB) (Not yet reviewed by provider) Interpretation: Performing Lab: Notes/Report: [facility] , Sodium 140 136-145 mmol/L Potassium 4.7 [...] 9.1 8.5-10.1 mg/dL Performing Lab: see note ML - [facility] LB FOLATE (Not yet reviewed by provider) Interpretation: Performing Lab: Notes/Report: [facility] , Folate 13.00 8.60-58.90 ng/mL Performing Lab: see note ML - [facility] LB FERRITIN (Not yet reviewed b y provider) Interpretation: Performing Lab: Notes/Report: [facility] , Ferritin 120.0 8.0-252.0 ng/mL Performing Lab: see note - [facility] LB CBC AUTO DIFF (Not yet revie wed by provider) Interpretation: Performing Lab: Notes/Report: [facility] , White Blood Count 8.2 4.0-11.0 10 [...] 10 3/uL Performing Lab: see note - [facility] LB Vitamin B12 (Not yet reviewe d by provider) Interpretation: Performing Lab: Notes/Report: [facility] , Vitamin B12 000 882-5758 pg/mL Performed at: [facility] Operator And Truck Driver: Sylvain Ralph PhD, Phone: [phone] [address] [place] [phone] Performing Lab: see note LC - [facility] LB Reason For Referral No Information Medications [...] Status Risk Notes Problem Gastroesophageal reflux disease (191813932) GERD (gastroesophageal reflux disease) (K21.9) Active confirmed Problem Essential hypertension (23004898) BP (high blood pressure) (I10) Active confirmed Problem Acquired thrombocytopenia (85731477) Acquired thrombocytopenia (D69.6) Active confirmed Encounters Encounter Location Date Provider Diagnosis [facility] [address] [place] [id number] 12/31/2024 Lakia Palaciowla [facility] On[facility] [address] [place] [phone] 03/11[facility] [address] [place] [address] 06/03/2025 Lakia Tomlin Plan Of Treatment Pending Test [...] Tomlin , 09/02/2025 03:00:00 PM, [address] [place], [address], Insurance Providers Payer Name Payer Address Payer Phone Subscriber Number Group Number Insured Name Patient Relationship to Insured Coverage Start Date Coverage End Date ANTHEM MEDISAMAN DUAL ADV PRIMARY MEDICARE [address] [place] [address] [id number] [facility] Power Lesly Self - patient is the insured MEDICAID [place] 2ND INS [address] [place], [place] [id number] PowerJazminra Self - patient is the insured 3 Medical (General) History Medical History History ICD Code Anxiety and depression F41.9 Essential hypertension I10 Abdominal pain R10.9 Blood in stool K92.1 Surgical History Surgery Date(Month/Year) right hand reconstruction total hysterectomy total hip arthroscopy - left cataract extraction
--- OUTSIDE RECORDS SUMMARY | 2025-08-19 13:40 | XMS_ITS | Patient Health Record ---
Author Organization [facility] Address [address] [place] [address] Care Team Providers Care Porcelain Finisher Name Role Phone Olga Holloway M.D. Primary Care Provider Unavail able Ashutosh Chino Unavailable [phone] Vincent Mckee DO Unavailable Unavailable Allergies Allergen [...] Problem Status W/U Status Risk Notes Problem 779506595 Aftercare following joint replacement surgery (Z47.1) Active confirmed Problem Disorder of joint of right shoulder region (disorder) (51295510141288528 ) Other specific arthropathies, not elsewhere classified, right shoulder (M12.811) Active confirmed Problem Rupture of right rotator cuff (63824051168227815 ) Unspecified rotator cuff tear or rupture of right shoulder, not specified as traumatic (M75.101) Active confirmed Problem 922008844 Presence of righ t artificial shoulder joint (Z96.611) Active confirmed Problem 846588223934994 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) Active confirmed Problem Bicipital tenosynovitis (22092489) Biceps tendinitis of right shoulder (M75.21) Active confirmed Plan Of Treatment No Information Insurance Providers Payer Name Payer Address Payer Phone Subscriber Number Group Number Insured Name Patient Relationship to Insured Coverage Start Date Coverage End Date Medicare [employer] [address] [place] [address] [id number] [facility] MATEO MANSFIELD Self - patient is the insured [facility] of Medicaid [address] [place] [address] [id number] MATEO MANSFIELD Self - patient is the [...]
--- OUTSIDE RECORDS SUMMARY | 2025-08-19 13:40 | XMS_ITS | Encounter Summary ---
Author Organization [facility] [facility] Address [id number] [address] [place] [address] Care Team Providers Care Nurse Name Role Phone Rajendra Jc DO Primary Care Provider Matt park Encounter Details Date Type Department Care Team ([facility] st Contact Info) Description 09/22/2024 Orders Only [facility] [place] [address] Transcribe, Orders Support User Pain [...] pain documented in this encounter Care Teams Nurse Relationship Specialty Start Date End Date Rajendra Jc DO PCP - General 12/28/17 documented as of this encounter
--- OUTSIDE RECORDS SUMMARY | 2025-08-19 13:40 | XMS_ITS | Clinical Summary ---
Author Organization [facility] tem Address [id number] [address] [place] [address] Care Team Providers Care Jet Ski Mechanic Name Role Phone Rajendra Jc DO Primary [...] 3:19 AM 04/10/2021 6:20 PM Care Teams Jet Ski Mechanic Relationship Specialty Start Date End Date Rajendra Jc DO PCP - General 12/28/17
--- OUTSIDE RECORDS SUMMARY | 2025-08-19 13:40 | XMS_ITS | Encounter Summary ---
Author Organization [facility] Address [address] [facility] [place] [address] Care Team Providers Care Television Maintenance Man Name Role Phone Ethan Bonilla MD Primary Care Provider [phone] Keira Church METAL ALLOY SCIENTIST Unavailable [phone] Encounter Details Date Type Department Care Team (Late st Contact Info) Description 06/10/2025 Abstract [facility] [address] [place] [address] Magdalene Goodrich NP [address] [place] [address] Social History Tobacco Use Types Packs/Day Years [...] documented as of this encounter Care Teams Television Maintenance Man Relationship Specialty Start Date End Date Ethan Bonilla MD PCP - General Family Medicine 08/15/24 Keira Church NP Nurse Practitioner Family Medicine 08/15/24 documented as of this encounter
--- OUTSIDE RECORDS SUMMARY | 2025-08-19 13:40 | XMS_ITS | Encounter Summary ---
Author Organization [facility] [employer] [facility] Address [facility]-[id number] [address] [place] [address] Care Team Providers Care Teaching Pastor Name Role Phone Rajendra Jc DO Primary Care Provider Matt park Reason for Visit * Reason Onset Date Comments Care Navigation 02/13/2024 Encounter Details Date Type Department Care Team (Late st Contact Info) Description 02/13/2024 Telephone [facility] Physicians Neurology [address] [place] [id number] Hailey Wang, YINA Care Navigation Social History [...] media there is a demographics sheet from [facility] [place]. * Telephone Encounter - Hailey Wang RN [...] on filedocumented in this encounter Care Teams Teaching Pastor Relationship Specialty Start Date End Date Rajendra Jc DO PCP - General 12/28/17 documented as of this encounter
--- OUTSIDE RECORDS SUMMARY | 2025-08-19 13:40 | XMS_ITS | Encounter Summary ---
Author Organization [employer] Address [facility][id number] [address] [place] [address] Care Team Providers Care Automobile Service Station Manager Name Role Phone Rajnedra Jc DO Primary Care Provider Matt park Encounter Details Date Type Department Care Team (Late st Contact Info) Description 04/06/2021 Orders Only [facility] [address] [place] [address] Transcribe, Orders Support User Pain (Primary [...] pain documented in this encounter Care Teams Automobile Service Station Manager Relationship Specialty Start Date End Date Rajendra Jc DO PCP - General 12/28/17 documented as of this encounter
--- OUTSIDE RECORDS SUMMARY | 2025-08-19 13:41 | XMS_ITS | Clinical Summary ---
Author Organization [facility] Address [address] [facility] [place] [address] Care Team Providers Care Lens Edge Grinder Machine Name Role Phone Ethan Bonilla MD Primary Care Provider Keira Church JIG WORKER Unavailable [phone] Allergies Active Allergy Reactions Criticality Noted Date [...] AND BEFORE BEDTIME 180 tablet 5 Active Active Problems Problem Noted Date Diagnosed [...] Denies SI/HI. Will set patient up with [facility] Fibromyalgia, primary 04/02/2024 Assessment & Plan (06/10/2025 6:44 AM EDT): gabapentin Assessment & Plan (02/25/2025 5:23 PM EDT): gabapentin GERD (gastroesophageal reflux disease) Glaucoma 04/02/2024 Hyperlipidemia, unspecified 04/02/2024 Assessment & Plan (02/25/2025 6:57 AM EDT): On statin therapy Check labs yearly and prn dose chagnes Assessment & Plan (12/25/2024 2:42 PM EST): [...] of the risks of continued smoking: stroke, PR, all forms of cancer, lung disease, and [...] of the risks of continued smoking: stroke, PR, all forms of cancer, lung disease, and [...] of the risks of continued smoking: stroke, PR, all forms of cancer, lung disease, and [...] acute pancreati tis without infection or necrosis ([facility]) 04/08/2021 Age-related osteoporosis wit hout current pathological [...] Eye Exam done 6 months ago- @ [place], [place] Assessment & Plan (09/24/2024 12:58 PM EST): A1C 6.1% Currently taking Farxiga 5mg Last Eye Exam done 6 months ago- @ [place], [place] Aftercare following joint replacement surgery 07/24/20 24 02/25/2025 Presence of right artificial shoulder joint 07/24/2024 02/25/2025 Anxiety 04/02/2024 02/25/2025 Unspecified convulsions 03/21/202402/05 Encounters Date Type Department Care Team Description 07/06/[address] [facility] [address] [place] [address] Magdalene Goodrich NP Convulsions, unspecified convulsion type (HCC) 06/10/2025 1:00 PM EDT Office Visit [facility] [address] [place] [address] Magdalene Goodrich NP Essential (primary) hypertension (Primary Dx); Other chronic pain; Fibromyalgia, primary; Type 2 diabetes mellitus with stage 3a chronic kidney disease, without long-term current use of insulin (HCC); Nicotine dependence, cigarettes, uncomplicated; FUENTES (generalized anxiety disorder) ; Restless leg syndrome; Lumbar back pain 06/10/2025 Abstract [facility] [address] [place] [address] Magdalene Goodrich NP 06/10/2025 Bamboo flowsheet [facility] [address] [place] [address] Magdalene Goodrich NP 05/30/2025 Clinisync Result Encounter [facility] External Department Unsolicited Provider, Generic External Data from Last 3 Months Immunizations Immunization Administration Dates Next Due Influenza, High Dose Seasonal, Preservative Free 07/20/2020,07/13/2018 Influenza, High-dose Seasona l, Quadrivalent, Preservative Free 08/10/2022,08/11/2021 Influenza, Seasonal, Quadrivalent, Adjuvanted Influenza, seasonal, injectable 08/19/2024 Influenza, trivalent, adjuvanted 07/25/2019 Novel [id number], preservative-free 10/23 Pneumococcal Polysaccharide PPSV23 11/12/2013, Unknown [...] VITAMIN B12 738 232 - 1245 pg/mL [facility] Comment: Performed at: [address] [id number] Mortgage Protection Specialist: Sylvain Ralph PhD, Phone: [phone] 05/30/2025 2:18 PM EDT 05/30/2025 2:21 PM EDT Narrative CLINIS[facility] - 05/31/2025 5:07 AM EDT Generic External Data Provider LAB BLOOD ORDERAB LES Final Result Performing Organization Address [facility] Co de Phone Number [facility] * METRO IRON AND TIBC (05/30/2025 2:18 PM EDT) [facility] IRON 77.0 50.0 - 170.0 ug/dL [facility] TOTAL IRON BINDING CAPACITY 332.0 250.0 - 450.0 ug/dL [facility] PERCENT IRON SATURATION 23.2 % [facility] 05/30/2025 2:18 PM EDT 05/30/2025 2:21 PM EDT Narrative CLINIS[facility]NC - 05/30/2025 3:35 PM EDT Generic External Data Provider CLINISYNC F inal Result Performing Organization Address [facility] de Phone Number [facility] * [facility] FERRITIN (05/30/2025 2:18 PM EDT) FERRITIN 95.0 8.0 - 252.0 ng/mL [facility] 05/30/2025 2:18 PM EDT 05/30/2025 2:21 PM EDT Narrative CLIN[facility]YNC - 05/30/2025 4:29 PM EDT Generic External Data Provider CLINISYNC F inal Result Performing Organization Address [facility] de Phone Number [facility] * ALL FOLIC ACID (05/30/2025 2:18 PM EDT) FOLATE 16.40 8.60 - 58.90 ng/mL [facility] 05/30/2025 2:18 PM EDT 05/30/2025 2:21 PM EDT Narrative [facility] - 05/30/2025 4:29 PM EDT us Generic External Data Provider EDYTA Ling inal Result EDYTA [facility] * (ABNORMAL) ALL CBC WITH AUTO DIFF (05/30/2025 2:18 PM EDT) [facility] TB WBC 6.2 4.0 - 11.0 10 3/uL [...] Narrative CLINISYNC - 05/30/2025 2:32 PM EDT Generic External Data Provider CLINISYNC Anuradha inal Result [facility] * ALL BASIC METABOLIC PANEL (05/30/2025 2:18 [...] 0.55 - 1.02 mg/dL [facility] EGFR-AF [place] >60 >=60 mL/min/1.7 3m 2 [facility] TBH EGFR-NON AF [place] >60 >=60 mL/min/1.7 3m 2 [facility] BUN CREATININE RATIO 21.4 [facility] CALCIUM 9.1 8.5 - 10.1 mg/dL [facility] 05/30/2025 2:18 PM EDT 05/30/2025 2:21 PM EDT Narrative [facility] - 05/30/2025 3:35 PM EDT Generic External Data Provider SAGARISYNC F inal Result Performing Organization Address City/[facility] Co de Phone Number [facility] TB from Last 3 Months Insurance [facility] MEDICARE ADVANTAGE MEDICAID [place] Care Teams Lens Edge Grinder Machine Relationship Specialty Start Date End Date Ethan Bonilla MD PCP - General Family Medicine 08/15/24 Keira Church NP Nurse Practitioner Family Medicine 08/15/24
--- NOTE | 2025-08-19 13:42 | XR_ITS ---
The [address] [address] Patient Name: MATEO MANSFIELD MRN: [id number] date: 1950 Sex: F Assigned Patient Location: [facility] Current Patient Location: [facility] Accession/Order Number: [id number] Exam Date: 08/19/2025 13:50 Report Date: 08/19/2025 19:07 At the request of: BHARATI HALEY NP Procedure: XR hip LT 2V w/ pelvis XR hip LT 2V w/ pelvis 08/19/2025 1:57 PM SIGNS AND SYMPTOMS: ^pain of left hip PROTOCOL: Frontal radiograph the pelvis with frontal and frog-leg views of the left hip COMPARISON: 02/09/2023 FINDINGS: There is total left hip arthroplasty hardware. There is no fracture or dislocation. No hardware complication. There is moderate to severe narrowing of the right hip joint space. Degenerative changes are noted in the lumbar spine. XR/XR hip LT 2V w/ pelvis IMPRESSION: Uncomplicated total left hip arthroplasty. No acute bony injury. Degenerative changes are redemonstrated as above. Impression dictated by: Johnson Toribio M.D. 08/19/2025 7:07 PM Dictation Location: [place] [address] Electronically authenticated by: [id number] Y Date: 08/19/2025 19:07
--- OUTSIDE RECORDS SUMMARY | 2025-08-19 13:43 | XMS_ITS | CCD ---
Author Organization [facility] Care Team Providers Care [place] Name Role Phone Robert Schwartz Unavailable Fernando [...] SCHWARTZ, DR ROBERT Rodriguez Primary Care Unavailable PATERSON, DR CHAITANYA King Consulting Unavailable SCHWARTZ, DR ROBERT Rodriguez Consulting Unavailable CYNDIE FRANKEL Referring Unavailable SAIRA CAMPBELL Primary Care Unavailable Neto Hooper Attending DO Bob Andrew Referring Unava ilable JARON JOHNSON Attending Unavailable Robert Schwartz MD Primary Care Provider Ethan Bonilla MD Primary Care Provider [phone] Lynnette MARTINEZ, Andrew Unavailable SAIRA CAMPBELL Primary Care Unavailable SAIRA CAMPBELL Referring Unavailable SAIRA CAMPBELL Primary Care Unavailable SAIRA CAMPBELL Referring Unavailable SAIRA CAMPBELL Primary Care Unavailable Saira Campbell DO Primary Care Provider Andrew Church NP Unavailable [phone] ANDREW CHURCH Attending Unavailabl e AICHHOLKarthik, MAGDALENE Attending Unavailable AICHHOLKarthik, MAGDALENE Attending Unavailable AICAUSTYN, MAGDALENE Attending Unavailable ANDREW CHURCH Attending Unavailabl e ANDREW CHURCH Attending Unavailabl e ChauhholMagdalene Ling Primary Care Provider [phone] Magdalene Mendes Attending Provider Magdalene Goodrich Attending Unavailable Magdalene Goodrich Admitting Unavailable Allergies Allergy Classification Reported Allergen(s) Allergy Type Date of Onset Reaction(s) Facility (17 sources) nickel; Translations: [NICKEL] Drug Allergy 02-13-20 24 Unknown, [facility] (13 sources) Penicillin Drug Allergy Unknown [facility] Other (20 sources) PHENobarbital; Translations: [PHENOBARBITAL] Drug Allergy 04-07-20 21 Rash, [facility] (20 sources) Phenytoin; Translations: [PHENYTOIN] Drug Allergy 04-07-20 21 Unknown, Rash [facility] (17 sources) Zinc; Translations: [ZINC] Drug Allergy 02-13-20 Unknown, [facility] (1 source) benzoin resin Drug Allergy 09-25-20 14 [facility] (1 source) Leucine Drug Allergy [facility] (7 sources) Penicillins; Translations: [PENICILLINS] Drug allergy (disorder) 09-25-20 14 Hives [facility] (1 source) Phenytoin Drug Allergy 09-25-20 14 [facility] (8 sources) Allergies Reconciled Propensity to adverse reactions Unknown [facility] Other (8 sources) Penicillin G Benzathine & Proc Drug allergy Unknown [facility] Other (8 sources) PHENobarbital *HYPNOTICS/SEDAT ANN/SLEEP DISORDER Propensity to adverse reactions Unknown [facility] Other (8 sources) patient allergy list reviewed by nurse or physicia Propensity to adverse reactions 03-29-20 19 Comment:Done [facility] Other (20 sources) Penicillin G Benzathine Allergy to substance 02-13-20 [facility] (3 sources) PHENobarbital *HYPNOTICS/SEDAT Allergy to substance 02-13-20 [facility] Comment on above: Free Text Allergy: P HENobarbital *HYPNOTICS/SEDATIVES/SLEEP DISORDER (20 sources) Phenytoin; Translations: [PHENYTOIN SODIUM EXTENDED] Drug Allergy 04-07-20 Rash [facility] (20 sources) nickel sulfate Drug Allergy 03-21-20 Unknown [facility] (20 sources) Penicillins Drug Intolerance 04-07-20 Rash, Unknown [facility] (20 sources) Zinc Acetate Drug Allergy 03-21-20 [facility] (2 sources) Penicillins Propensity to adverse reactions to drug 04-07-20 [facility] Medications Current Medications Medication [...] Start: 11-08-2022 take 1 capsule by mo [facility] three times daily Gabapentin 300 MG 1 capsule Orally 3 times per day for 30 day(s) Nov, Active End: 08-06-2024 take 1 capsule by mouth once daily gabapentin (Neurontin) 300 MG capsule Indications: Neuropathic Pain Take 300 mg by mouth Daily 08/06/2024 Discontinued (Reorder) hydroxyurea 500 mg oral capsule (20 sources) Antimetabolite Start: 07-16-2025 take 1 capsule by mo [facility] twice daily Start: 04-23-2024 take 1 capsule by mo [facility] once daily hydroxyurea (Hydrea) 500 MG capsule [...] Test Name Value Interpretation Reference Range Facility Toxassure, Urineon Toxassure, Urine Summary FINAL Normal . [facility] Comment on above: Result Comment: ======== TOXASSURE COMP DRUG ANALYSIS,UR ======== Test Result Flag Units Drug Present Alpha-hydroxyalprazolam 38 ng/mg creat Alpha-hydroxyalprazolam is an expected metabolite of alprazolam. Source of alprazolam is a scheduled prescription medication. Oxycodone 1616 ng/mg creat Oxymorphone 1279 ng/mg creat Noroxycodone 2245 ng/mg creat Noroxymorphone 491 ng/mg creat Sources of oxycodone are scheduled prescription medications. Oxymorphone, noroxycodone, and noroxymorphone are expected metabolites of oxycodone. Oxymorphone is also available as a scheduled prescription medication. Gabapentin PRESENT Levetiracetam PRESENT Acetaminophen PRESENT Salicylate PRESENT Doxylamine PRESENT Dextrorphan/Levorphanol PRESENT Dextrorphan is an expected metabolite of dextromethorphan, an tefi-cmc-fqupsax or prescription cough suppressant. Levorphanol is a scheduled prescription medication. Dextrorphan cannot be distinguished from levorphanol by the method used for analysis. Metoprolol PRESENT ======== Test Result Flag Units Ref Range Creatinine 58 mg/dL >=20 ======== Declared Medications: Medication list was not provided. ======== For clinical consultation, please call . ======== Performed at: [employer] [address] [place] [address] [id number] Vehicle Glass Technician: Latia Castellon [facility], Phone: [phone] PERFORMED BY: [facility] Mahendra [place] [address] PATHOLOGIST HEEL SANDER RUBBER DANIELLA ARRIAGA M.D. Performed By: #### T OXASSURE #### [facility] , ALL CBC WITH AUTO DIFFon BASOPHILS ABSOLUTE AUTO 0 N [facility] Basophils/100 WBC (Bld) 0.5 % 0.2 - 2.0 % [facility] Eosinophils/100 WBC (Bld) 2.7 % 0.9 - 7.0 % [facility] Erythrocyte distribution width (RBC) [Ratio] 13.4 % 11.0 - 15.0 % [facility] Hematocrit (Bld) [Volume fraction] 48 % 36.0 - 48.0 % [facility] Hemoglobin (Bld) [Mass/Vol] 16 g/dL 12.0 - 16.0 g/dL [facility] IMMATURE GRANULOCYTES ABS AUTO 0.02 [facility] Immature granulocytes/100 WBC (Bld) 0.3 % 0.0 - 0.5 % [facility] Interpretation and review of laboratory results Abnormal [facility] LYMPHOCYTES ABSOLUTE AUTO 2 [facility] Lymphocytes/100 WBC (Bld) 32.4 % 20.5 - 60. 0 % [facility] MCH (RBC) [Entitic mass] 34.9 pg High 26. 7 - 34.0 pg [facility] MCHC (RBC) [Mass/Vol] 33.3 g/dL 29.9 - 35.2 g/dL [facility] MCV (RBC) [Entitic vol] 104.6 fL High 81.0 - 99.0 fL [facility] MONOCYTES ABSOLUTE AUTO 0.5 N [facility] Monocytes/100 WBC (Bld) 8.2 % 1.7 - 12.0 % [facility] NEUTROPHILS ABSOLUTE AUTO 3.5 [facility] Neutrophils/100 WBC (Bld) 55.9 % 43.0 - 75. 0 % [facility] Platelet mean volume (Bld) [Entitic vol] 10.8 fL 9.5 - 13.5 fL [facility] EO # 0.2 [facility] PLT 355 [facility] RBC 4.59 [facility] WBC 6.2 [facility] HbA1c (Bld) [Mass fraction]o n 04-10-2025 Interpretation and review of laboratory results Abnormal On license of [facility] - Hematology and Cell countson 04-10-2025 HbA1c (Bld) [Mass fraction] 5.8 % [facility] Urinalysis macro (dipstick) panel (U)on 04-10-2025 Bilirubin, UA Negative Negative - 4(70) +++ mg/dL [facility] Blood, UA Negative Negative - 50 Hunter/mcL [facility] Clarity, UA Clear [facility] Color, UA Yellow [facility] Glucose, UA Positive Negative - 2000(110) ++++ mg/dL [facility] Comment on above: 250 Interpretation and review of laboratory results Abnormal [facility] Ketones, UA Negative Negative - 160(16) ++++ mg/dL [facility] Leukocytes, UA Trace Negative - 500+++ Fara/mcL [facility] Nitrite, UA Negative Negative - Positive [facility] pH, UA 6 5 - 9 [facility] Protein, UA Negative Negative - 2000(20) ++++ mg/dL [facility] Spec Grav, UA 1.015 1 - 1.03 [facility] Urobilinogen, UA 0.2 0.2 - 12 mg/dL On license of [facility] ALL CBC WITH AUTO DIFFon BASOPHILS ABSOLUTE AUTO 0 N [facility] Basophils/100 WBC (Bld) 0.2 % 0.2 - 2.0 % [facility] Eosinophils/100 WBC (Bld) 2.2 % 0.9 - 7.0 % [facility] Erythrocyte distribution width (RBC) [Ratio] 16.1 % High 11.0 - 15.0 % [facility] Hematocrit (Bld) [Volume fraction] 45.9 % 36.0 - 48.0 % [facility] Hemoglobin (Bld) [Mass/Vol] 15.3 g/dL 12.0 - 16.0 g/dL [facility] IMMATURE GRANULOCYTES ABS AUTO 0.02 [facility] Immature granulocytes/100 WBC (Bld) 0.2 % 0.0 - 0.5 % [facility] Interpretation and review of laboratory results Abnormal [facility] LYMPHOCYTES ABSOLUTE AUTO 2.6 [facility] Lymphocytes/100 WBC (Bld) 31.4 % 20.5 - 60. 0 % [facility] MCH (RBC) [Entitic mass] 33.1 pg 26. 7 - 34.0 pg [facility] MCHC (RBC) [Mass/Vol] 33.3 g/dL 29.9 - 35.2 g/dL [facility] MCV (RBC) [Entitic vol] 99.4 fL High 81.0 - 99.0 fL [facility] MONOCYTES ABSOLUTE AUTO 0.6 N [facility] Monocytes/100 WBC (Bld) 6.9 % 1.7 - 12.0 % [facility] NEUTROPHILS ABSOLUTE AUTO 4.8 [facility] Neutrophils/100 WBC (Bld) 59.1 % 43.0 - 75. 0 % [facility] Platelet mean volume (Bld) [Entitic vol] 10.6 fL 9.5 - 13.5 [facility]L [facility] PLT 416 [facility] RBC 4.62 [facility] WBC 8.2 [facility] ALL CBC WITH AUTO DIFFon BASOPHILS ABSOLUTE AUTO 0 N [facility] Basophils/100 WBC (Bld) 0.5 % 0.2 - 2.0 % [facility] Eosinophils/100 WBC (Bld) 5.2 % 0.9 - 7.0 % [facility] Erythrocyte distribution width (RBC) [Ratio] 12.4 % 11.0 - 15.0 % [facility] Hematocrit (Bld) [Volume fraction] 49.7 % High 36.0 - 48.0 % [facility] Hemoglobin (Bld) [Mass/Vol] 16.2 g/dL High 12.0 - 16.0 g/dL [facility] IMMATURE GRANULOCYTES ABS AUTO 0.01 [facility] Immature granulocytes/100 WBC (Bld) 0.1 % 0.0 - 0.5 % [facility] Interpretation and review of laboratory results Abnormal [facility] LYMPHOCYTES ABSOLUTE AUTO 2 [facility] Lymphocytes/100 WBC (Bld) 25 % 20.5 - 60. 0 % [facility] MCH (RBC) [Entitic mass] 33.3 pg 26. 7 - 34.0 pg [facility] MCHC (RBC) [Mass/Vol] 32.6 g/dL 29.9 - 35.2 g/dL [facility] MCV (RBC) [Entitic vol] 102.3 fL High 81.0 - 99.0 fL [facility] MONOCYTES ABSOLUTE AUTO 0.7 N [facility] Monocytes/100 WBC (Bld) 8.5 % 1.7 - 12.0 % [facility] NEUTROPHILS ABSOLUTE AUTO 4.8 [facility] Neutrophils/100 WBC (Bld) 60.7 % 43.0 - 75. 0 % [facility] Platelet mean volume (Bld) [Entitic vol] 10.7 fL 9.5 - 13.5 fL [facility] EO # 0.4 [facility] TB PLT 546 High [facility] RBC 4.86 [facility] WBC 7.9 [facility] ALL CBC WITH AUTO DIFFon BASOPHILS ABSOLUTE AUTO 0 N [facility] Basophils/100 WBC (Bld) 0.6 % 0.2 - 2.0 % [facility] Eosinophils/100 WBC (Bld) 3.5 % 0.9 - 7.0 % [facility] Erythrocyte distribution width (RBC) [Ratio] 14.7 % 11.0 - 15.0 % [facility] Hematocrit (Bld) [Volume fraction] 42.2 % 36.0 - 48.0 % [facility] Hemoglobin (Bld) [Mass/Vol] 13.9 g/dL 12.0 - 16.0 g/dL [facility] IMMATURE GRANULOCYTES ABS AUTO 0.01 [facility] Immature granulocytes/100 WBC (Bld) 0.1 % 0.0 - 0.5 % [facility] Interpretation and review of laboratory results Abnormal [facility] LYMPHOCYTES ABSOLUTE AUTO 2.5 [facility] Lymphocytes/100 WBC (Bld) 36.5 % 20.5 - 60. 0 % [facility] MCH (RBC) [Entitic mass] 35 pg High 26. 7 - 34.0 pg [facility] MCHC (RBC) [Mass/Vol] 32.9 g/dL 29.9 - 35.2 g/dL [facility] MCV (RBC) [Entitic vol] 106.3 fL High 81.0 - 99.0 fL [facility] MONOCYTES ABSOLUTE AUTO 0.6 N [facility] Monocytes/100 WBC (Bld) 8.4 % 1.7 - 12.0 % [facility] NEUTROPHILS ABSOLUTE AUTO 3.5 [facility] Neutrophils/100 WBC (Bld) 50.9 % 43.0 - 75. 0 % [facility] Platelet mean volume (Bld) [Entitic vol] 10.7 fL 9.5 - 13.5 fL [facility] EO # 0.2 [facility] PLT 340 [facility] RBC 3.97 Low [facility] WBC 6.8 [facility] ALL CBC WITH AUTO DIFFon BASOPHILS ABSOLUTE AUTO 0.0 [facility] Basophils/100 WBC (Bld) 0.5 % 0.2 - 2.0 % [facility] Eosinophils/100 WBC (Bld) 3.6 % 0.9 - 7.0 % [facility] Erythrocyte distribution width (RBC) [Ratio] 16.5 % High 11.0 - 15.0 % [facility] Hematocrit (Bld) [Volume fraction] 41.6 % 36.0 - 48.0 % [facility] Hemoglobin (Bld) [Mass/Vol] 14.1 g/dL 12.0 - 16.0 g/dL [facility] IMMATURE GRANULOCYTES ABS AUTO 0.01 [facility] Immature granulocytes/100 WBC (Bld) 0.1 % 0.0 - 0.5 % [facility] Interpretation and review of laboratory results Abnormal [facility] LYMPHOCYTES ABSOLUTE AUTO 2.6 [facility] Lymphocytes/100 WBC (Bld) 36.0 % 20.5 - 60. 0 % [facility] MCH (RBC) [Entitic mass] 34.9 pg High 26. 7 - 34.0 pg [facility] MCHC (RBC) [Mass/Vol] 33.9 g/dL 29.9 - 35.2 g/dL [facility] MCV (RBC) [Entitic vol] 103.0 fL High 81.0 - 99.0 fL [facility] MONOCYTES ABSOLUTE AUTO 0.5 N [facility] Monocytes/100 WBC (Bld) 7.3 % 1.7 - 12.0 % [facility] NEUTROPHILS ABSOLUTE AUTO 3.8 [facility] Neutrophils/100 WBC (Bld) 52.5 % 43.0 - 75. 0 % [facility] Platelet mean volume (Bld) [Entitic vol] 10.5 fL 9.5 - 13.5 fL [facility] EO # 0.3 [facility] PLT 315 [facility] RBC 4.04 Low [facility] WBC 7.3 [facility] Office Visiton 04-02-2024 Follow-up visit [id number] Lesly Steve 1950 F Date Provider Department Center 04/02/2024 [id number], PETERSONAB CARD [facility] Family History Family history unknown: Yes Level of Service:43010 LA OFFICE/OUTPATIENT NEW MODERATE MDM 45 MINUTES Normal [facility] Orders Onlyon 03-29-2024 Orders Only [id number] Lesly Steve 1950 F Date Provider Department Center 03/29/2024 [id number], HISTORICAL CARD [facility] No family history on file Normal [facility] Referrals Officeon Referrals Office [phone] [id number] Normal [facility] Basophils Auto (Bld) [#/Vol] on 02-09-2024 Basophils (Bld) [#/Vol] 0.0 10 3/uL 0.0-0.1 [facility] Basophils/100 WBC Auto (Bld) on 02-09-2024 Basophils/100 WBC (Bld) 0.3 % 0.2-2.0 F [facility] Cholesterol in LDL Calc [Mas s/Vol]on 02-09-2024 Cholesterol in LDL [Mass/Vol] 141.0 mg/dL [facility] Comment on above: <100 mg/dl [id number] 0-129 mg/dl NEAR OR ABOVE [id number] mg/dl BORDERLINE [id number] mg/dl HIGH>190 mg/dl VERY HIGH Cholesterol in VLDL Calc [Ma ss/Vol]on 02-09-2024 Cholesterol in VLDL [Mass/Vol] 25.2 mg/dL [facility] Eosinophils/100 WBC Auto (Bl d)on 02-09-2024 Eosinophils/100 WBC (Bld) 2.7 % 0.9-7.0 [facility] Erythrocyte distribution wid th Auto (RBC) [Ratio]on 02-09-2024 Erythrocyte distribution width (RBC) [Ratio] 14.0 % 11.0-15.0 [facility] Estimated glomerular filtrat ion rate (GFR) non- Americanon 02-09-2024 GFR/1.73 sq M.predicted among non-blacks MDRD (S/P/Bld) [Vol rate/Area] 59 mL/min/{1.73_m2} >=60 [facility] Hematocrit Auto (Bld) [Volum e fraction]on 02-09-2024 Hematocrit (Bld) [Volume fraction] 45.5 % 36.0-48.0 [facility] Hemoglobin [Mass/volume] in Bloodon 02-09-2024 Hemoglobin (Bld) [Mass/Vol] 14.6 g/dL 12.0-16.0 [facility] Laboratory - Chemistry and C hemistry - challengeon 02-09-2024 Calcium [Mass/Vol] 9.6 mg/dL 8.5-10.1 [facility] Chloride [Moles/Vol] 103 mmol/L 98-107 [facility] Cholesterol [Mass/Vol] 200 mg/dL <=200 [facility] Cholesterol in HDL [Mass/Vol] 34 mg/dL 40-60 [facility] Comment on above: > or =60 mg/dl - LOW CARDIOVASCULAR RISK<40 mg/dl - HIGH CARDIOVASCULAR RISK CO2 [Moles/Vol] 26.1 mmol/L 21.0-32.0 [facility] Creatinine [Mass/Vol] 0.93 mg/dL 0.55-1.02 [facility] GFR/1.73 sq M.predicted MDRD (S/P/Bld) [Vol rate/Area] mL/min/{1.73_m2} >=60 [facility] Glucose [Mass/Vol] 116 mg/dL 74-106 [facility] Potassium [Moles/Vol] 4.2 mmol/L 3.5-5.1 [facility] Sodium [Moles/Vol] 139 mmol/L 136-145 [facility] Triglyceride [Mass/Vol] 126 mg/dL <=150 F [facility] Urea nitrogen [Mass/Vol] 22.0 mg/dL 7.0-18.0 [facility] Urea nitrogen/Creatinine [Mass ratio] 23.7 mg/mg [facility] Laboratory - Hematology and Cell countson 02-09-2024 Immature granulocytes/100 WBC (Bld) 0.3 % 0.0-0.5 [facility] Leukocytes [#/volume] correc dinora for nucleated erythrocytes in Blood by Automated counon 02-09-2024 WBC corrected for nucl RBC Auto (Bld) [#/Vol] 12.2 10 3/uL 4.0-11.0 [facility] Lymphocytes Auto (Bld) [#/Vo l]on 02-09-2024 Lymphocytes (Bld) [#/Vol] 2.0 10 3/uL 1.2-3.8 [facility] Lymphocytes/100 WBC Auto (Bl d)on 02-09-2024 Lymphocytes/100 WBC (Bld) 16.4 % 20.5-60.0 [facility] MCH Auto (RBC) [Entitic mass ]on 02-09-2024 MCH (RBC) [Entitic mass] 29.4 pg 26.7-34.0 [facility] MCHC Auto (RBC) [Mass/Vol]on 02-09-2024 MCHC (RBC) [Mass/Vol] 32.1 g/dL 29.9-35.2 [facility] MCV Auto (RBC) [Entitic vol] on 02-09-2024 MCV (RBC) [Entitic vol] 91.7 fL 81.0-99.0 F [facility] Monocytes Auto (Bld) [#/Vol] on 02-09-2024 Monocytes (Bld) [#/Vol] 0.9 10 3/uL 0.3-0.8 [facility] Monocytes/100 WBC Auto (Bld) on 02-09-2024 Monocytes/100 WBC (Bld) 7.7 % 1.7-12.0 F [facility] Neutrophils Auto (Bld) [#/Vo l]on 02-09-2024 Neutrophils (Bld) [#/Vol] 8.9 10 3/uL 1.4-6.5 [facility] Neutrophils/100 WBC Auto (Bl d)on 02-09-2024 Neutrophils/100 WBC (Bld) 72.6 % 43.0-75.0 [facility] No Panel Informationon 02-08 Eosinophils # (Auto) 0.3 10 3/uL 0.0-0.7 [facility] Immature Granulocyte # (Auto) 0.04 10 3/uL 0.00-0.03 [facility] Platelet mean volume Auto (B ld) [Entitic vol]on 02-09-2024 Platelet mean volume (Bld) [Entitic vol] 10.9 fL 9.5-13.5 [facility] Platelets Auto (Bld) [#/Vol] on 02-09-2024 Platelets (Bld) [#/Vol] 546 10 3/uL 150-450 [facility] RBC Auto (Bld) [#/Vol]on RBC (Bld) [#/Vol] 4.96 10 6/uL 4.20-5.40 [facility] Serum or plasma anion gap de terminationon 02-09-2024 Anion gap [Moles/Vol] 14.1 mmol/L [facility] Serum or plasma total choles terol/high density lipoprotein (HDL) cholesterol mass maury 02-09-2024 Cholesterol.total/Cholest janay in HDL [Mass ratio] 5.9 {ratio} [facility] Comment on above: 3.3 - 4.4 LOW RISK4. 4 - 7.1 AVERAGE RISK7.1 - 11.0 MODERATE RISK>11.0 HIGH RISK Automated epithelial cells c ount in urine sediment (number/area)on 02-08-2024 Epithelial cells Auto (Urine sed) [#/Area] MODERATE #/LPF NONE/RARE [facility] Automated leukocytes count i n urine sediment (number/area)on 02-08-2024 WBC Auto (Urine sed) [#/Area] 0-2 #/HPF 0-2 [facility] Automated urine specific gra vity by refractometryon 02-08-2024 Specific gravity Refractometry automated (U) [Rel density] 1.025 1.005-1.025 [facility] Basophils Auto (Bld) [#/Vol] on 02-08-2024 Basophils (Bld) [#/Vol] 0.1 10 3/uL 0.0-0.1 [facility] Basophils/100 WBC Auto (Bld) on 02-08-2024 Basophils/100 WBC (Bld) 0.4 % 0.2-2.0 F [facility] Bilirubin Auto test strip (U ) [Mass/Vol]on 02-08-2024 Bilirubin (U) [Mass/Vol] Negative NEGATIVE [facility] Casts typing in urine sedime nt by light microscopyon 02-08-2024 Casts LM Nom (Urine sed) NONE SEEN #/LPF NONE S EEN [facility] Color Auto (U)on 02-08-2024 Color (U) YELLOW YELLOW [facility] Eosinophils/100 WBC Auto (Bl d)on 02-08-2024 Eosinophils/100 WBC (Bld) 1.9 % 0.9-7.0 [facility] Erythrocyte distribution wid th Auto (RBC) [Ratio]on 02-08-2024 Erythrocyte distribution width (RBC) [Ratio] 13.9 % 11.0-15.0 [facility] Estimated glomerular filtrat ion rate (GFR) non- Americanon 02-08-2024 GFR/1.73 sq M.predicted among non-blacks MDRD (S/P/Bld) [Vol rate/Area] 51 mL/min/{1.73_m2} >=60 [facility] Globulin Calc (S) [Mass/Vol] on 02-08-2024 Globulin (S) [Mass/Vol] 3.7 g/dL F [facility] Hematocrit Auto (Bld) [Volum e fraction]on 02-08-2024 Hematocrit (Bld) [Volume fraction] 48.8 % 36.0-48.0 [facility] Hemoglobin [Mass/volume] in Bloodon 02-08-2024 Hemoglobin (Bld) [Mass/Vol] 15.8 g/dL 12.0-16.0 [facility] INR in Platelet poor plasma by Coagulation assayon 02-08-2024 INR Coag (PPP) [Relative time] 1.05 {INR} [facility] Comment on above: DESIRED INR:2.0-3.0 CONDITIONS NOT LISTED BELOW2.5-3.5 FOR PROSTHETIC HEART VALVE REPLACEMENT2.5-3.5 RECURRENT THROMBOSIS Ketones Auto test strip (U) [Mass/Vol]on 02-08-2024 Ketones (U) [Mass/Vol] Negative [facility]GATIVE [facility] hem[facility] - challengeon 02-08-2024 Albumin [Mass/Vol] 4.0 g/dL 3.4-5.0 [facility] ALP [Catalytic activity/Vol] 80 U/L 46-116 [facility] ALT [Catalytic activity/Vol] 25 U/L 14-59 [facility] AST [Catalytic activity/Vol] 31 U/L 15-37 [facility] Bilirubin [Mass/Vol] 0.4 mg/dL 0.2-1.0 [facility] Calcium [Mass/Vol] 9.5 mg/dL 8.5-10.1 [facility] Chloride [Moles/Vol] 100 mmol/L 98-107 [facility] CO2 [Moles/Vol] 28.0 mmol/L 21.0-32.0 [facility] Creatinine [Mass/Vol] 1.06 mg/dL 0.55-1.02 [facility] GFR/1.73 sq M.predicted MDRD (S/P/Bld) [Vol rate/Area] mL/min/{1.73_m2} >=60 [facility] Glucose [Mass/Vol] 105 mg/dL 74-106 [facility] Potassium [Moles/Vol] 3.7 mmol/L 3.5-5.1 [facility] Protein [Mass/Vol] 7.7 g/dL 6.4-8.2 [facility] Sodium [Moles/Vol] 137 mmol/L 136-145 [facility] Urea nitrogen [Mass/Vol] 19.0 mg/dL 7.0-18.0 [facility] Urea nitrogen/Creatinine [Mass ratio] 17.9 mg/mg [facility] Laboratory - Hematology and Cell countson 02-08-2024 Immature granulocytes/100 WBC (Bld) 0.2 % 0.0-0.5 [facility] - Microbiology an d Antimicrobial susceptibilityOrdered By: Robert Schwartz on 02-08-2024 Bacteria identified Cx Nom (U) [facility] Leukocytes [#/volume] correc dinora for nucleated erythrocytes in Blood by Automated counon 02-08-2024 WBC corrected for nucl RBC Auto (Bld) [#/Vol] 13.4 10 3/uL 4.0-11.0 [facility] Lymphocytes Auto (Bld) [#/Vo l]on 02-08-2024 Lymphocytes (Bld) [#/Vol] 2.7 10 3/uL 1.2-3.8 [facility] Lymphocytes/100 WBC Auto (Bl d)on 02-08-2024 Lymphocytes/100 WBC (Bld) 20.3 % 20.5-60.0 [facility] MCH Auto (RBC) [Entitic mass ]on 02-08-2024 MCH (RBC) [Entitic mass] 30.2 pg 26.7-34.0 [facility] MCHC Auto (RBC) [Mass/Vol]on 02-08-2024 MCHC (RBC) [Mass/Vol] 32.4 g/dL 29.9-35.2 [facility] MCV Auto (RBC) [Entitic vol] on 02-08-2024 MCV (RBC) [Entitic vol] 93.1 fL 81.0-99.0 F [facility] Monocytes Auto (Bld) [#/Vol] on 02-08-2024 Monocytes (Bld) [#/Vol] 1.1 10 3/uL 0.3-0.8 [facility] Monocytes/100 WBC Auto (Bld) on 02-08-2024 Monocytes/100 WBC (Bld) 8.1 % 1.7-12.0 F [facility] Mucus LM Ql (Urine sed)on Mucus Ql (Urine sed) TRACE NONE SEEN [facility] Neutrophils Auto (Bld) [#/Vo l]on 02-08-2024 Neutrophils (Bld) [#/Vol] 9.3 10 3/uL 1.4-6.5 [facility] Neutrophils/100 WBC Auto (Bl d)on 02-08-2024 Neutrophils/100 WBC (Bld) 69.1 % 43.0-75.0 [facility] No Panel Informationon 02-07 Urine Culture Reflexed YES [facility] Urine Microscopic Review YES [facility] Eosinophils # (Auto) 0.3 10 3/uL 0.0-0.7 [facility] Immature Granulocyte # (Auto) 0.03 10 3/uL 0.00-0.03 [facility] Platelet mean volume Auto (B ld) [Entitic vol]on 02-08-2024 Platelet mean volume (Bld) [Entitic vol] 10.5 fL 9.5-13.5 [facility] Platelets Auto (Bld) [#/Vol] on 02-08-2024 Platelets (Bld) [#/Vol] 585 10 3/uL 150-450 [facility] Protein Auto test strip (U) [Mass/Vol]on 02-08-2024 Protein (U) [Mass/Vol] TRACE mg/dL NEG/TRACE F [facility] Prothrombin time (PT)on PT Coag (PPP) [Time] 11.1 s 9.0-11.6 [facility] RBC Auto (Bld) [#/Vol]on RBC (Bld) [#/Vol] 5.24 10 6/uL 4.20-5.40 [facility] Serum or plasma albumin/glob ulin mass ratioon 02-08-2024 Albumin/Globulin [Mass ratio] 1.1 {ratio} [facility] Serum or plasma anion gap de terminationon 02-08-2024 Anion gap [Moles/Vol] 12.7 mmol/L [facility] Specific gravity Auto test s trip (U) [Rel density]on 02-08-2024 Specific gravity (U) [Rel density] CLEAR CLEAR [facility] Urine bacteria detection by automated methodon 02-08-2024 Bacteria Auto Ql (U) MODERATE #/HPF NONE SEEN [facility] Urine glucose measurement by test strip (mass/volume)on 02-08-2024 Glucose Test strip (U) [Mass/Vol] Negative NEGATIVE [facility] Urine hemoglobin detection b y automated test stripon 02-08-2024 Hemoglobin Auto test strip Ql (U) Negative NEGATIVE [facility] Urine nitrite detection by a utomated test stripon 02-08-2024 Nitrite Auto test strip Ql (U) SMALL NEGATIVE [facility] Nitrite Auto test strip Ql (U) Negative NEGATIVE [facility] Urine sediment crystal ident ification by light microscopyon 02-08-2024 Crystals LM Nom (Urine sed) None Seen #/HPF None Seen [facility] Urine sediment leukocyte cou nt by microscopy (number/high power field)on 02-08-2024 WBC LM.HPF (Urine sed) [#/Area] 10-20 #/HPF NONE SEEN [facility] Urobilinogen Auto test strip (U) [Mass/Vol]on 02-08-2024 Urobilinogen Qn (U) 0.2 {Toshia'U}/dL 0.2-1.0 [facility] pH Auto test strip (U)on pH (U) 5.5 [pH] 5.0-9.0 [facility] CBC AUTO DIFFon 02-09-2023 BASO # 0.0 103/ul Normal 0.0-0.1 [facility] Comment on above: Performed By: #### C BC #### [facility] [address] [place] [address] Dr. Thierno Phipps Basophils/100 WBC (Bld) 0.4 % Normal 0.2-2.0 [facility] Comment on above: Performed By: #### C BC #### [facility] [address] [place] [address] Dr. Thierno Phipps EO # 0.5 103/ul Normal 0.0-0.7 [facility] Comment on above: Performed By: #### C BC #### [facility] [address] [place] [address] Dr. Thierno Phipps Eosinophils/100 WBC (Bld) 4.8 % Normal 0.9-7.0 [facility] Comment on above: Performed By: #### C BC #### [facility] [address] [place] [address] Dr. Thierno Phipps Erythrocyte distribution width (RBC) [Ratio] 13.2 % Normal 11.0-15.0 [facility] Comment on above: Performed By: #### C BC #### [facility] [address] [place] [address] Dr. Thierno Phipps Hematocrit (Bld) [Volume fraction] 48.4 % Critically high 36.0-48.0 [facility] Comment on above: Performed By: #### C BC #### [facility] [address] [place] [address] Dr. Thierno Phipps Hemoglobin (Bld) [Mass/Vol] 15.8 g/dL Normal 12.0-16.0 [facility] Comment on above: Performed By: #### C BC #### [facility] [address] [place] [address] Dr. Thierno Phipps IG # 0.03 10e3/ul Normal 0.00-0.03 [facility] Comment on above: Performed By: #### C BC #### [facility] [address] [place] [address] Dr. Thierno Phipps IG % 0.3 % Normal 0.0-0.5 [facility] Comment on above: Performed By: #### C BC #### [facility] [address] [place] [address] Dr. Thierno Phipps LYMPH # 2.9 103/ul Normal 1.2-3.8 [facility] Comment on above: Performed By: #### C BC #### [facility] [address] [place] [address] Dr. Thierno Phipps Lymphocytes/100 WBC (Bld) 30.1 % Normal 20.5-60.0 [facility] Comment on above: Performed By: #### C BC #### [facility] [address] [place] [address] Dr. Thierno Phipps MANUAL DIFF REQ NO Normal [facility] Comment on above: Performed By: #### C BC #### [facility] [address] [address] [address] Thierno Phipps MCH (RBC) [Entitic mass] 29.6 pg Normal 26.7-34.0 [facility] Comment on above: Performed By: #### C BC #### [facility] [address] [place] [address] Dr. Thierno Phipps MCHC (RBC) [Mass/Vol] 32.6 g/dL Normal 29.9-35.2 [facility] Comment on above: Performed By: #### C BC #### [facility] [address] [place] [address] Dr. Thierno Phipps MCV (RBC) [Entitic vol] 90.8 fL Normal 81.0-99.0 [facility] Comment on above: Performed By: #### C BC #### [facility] [address] [place] [address] Dr. Thierno Phipps MONO # 0.8 103/ul Normal 0.3-0.8 [facility] Comment on above: Performed By: #### C BC #### [facility] [address] [place] [address] Dr. Thierno Phipps Monocytes/100 WBC (Bld) 8.2 % Normal 1.7-12.0 [facility] Comment on above: Performed By: #### C BC #### [facility] [address] [place] [address] Dr. Thierno Phipps NEUT # 5.4 103/ul Normal 1.4-6.5 [facility] Comment on above: Performed By: #### C BC #### [facility] [address] [place] [address] Dr. Thierno Phipps Neutrophils/100 WBC (Bld) 56.2 % Normal 43.0-75.0 [facility] Comment on above: Performed By: #### C BC #### [facility] [address] [place] [address] Dr. Thierno Phipps Platelet mean volume (Bld) [Entitic vol] 10.4 fL Normal 9.5-13.5 [facility] Comment on above: Performed By: #### C BC #### [facility] [address] [address] [address] Thierno Phipps PLT 626 103/ul Critically high 150-450 [facility] Comment on above: Performed By: #### C BC #### [facility] [address] [address] [address] Thierno Phipps RBC 5.33 106/ul Normal 4.20-5.40 [facility] Comment on above: Performed By: #### C BC #### [facility] [address] [address] [address] Thierno Phipps WBC 9.6 103/ul Normal 4.0-11.0 [facility] Comment on above: Performed By: #### C BC #### [facility] [address] [place] [address] Dr. Thierno Phipps LIPID PROFILEon 02-09-2023 CHOL-HDL RATIO NORM SEE BELOW Normal [facility] Comment on above: Result Comment: 3.3 - 4.4 LOW RISK 4.4 - 7.1 AVERAGE RISK 7.1 - 11.0 MODERATE RISK >11.0 HIGH RISK Performed By: #### L IPID, CMP #### [facility] [address] [place] [address] Dr. Thierno Phipps Cholesterol [Mass/Vol] 267 mg/dL Critically high <=200 [facility] Comment on above: Performed By: #### L IPID, CMP #### [facility] [address] [place] [address] Dr. Thierno Phipps Cholesterol in HDL [Mass/Vol] 35 mg/dL Critically low 40-60 [facility] Comment on above: Performed By: #### L IPID, CMP #### [facility] [address] [place] [address] Dr. Thierno Phipps Cholesterol in LDL [Mass/Vol] 186.0 mg/dL Normal [facility] Comment on above: Performed By: #### L IPID, CMP #### [facility] [address] [place] [address] Dr. Thierno Phipps Cholesterol.total/Cholest janay in HDL [Mass ratio] 7.6 {ratio} Normal [facility] Comment on above: Performed By: #### L IPID, CMP #### [facility] [address] [address] [address] Thierno Phipps HDL NORMAL > or = 60 mg/dl - LOW CARDIOVASCULAR RISK <40 mg/dl - HIGH CARDIOVASCULAR RISK Normal [facility] Comment on above: Performed By: #### L IPID, CMP #### [facility] [address] [address] [address] Thierno Phipps LDL CALC NORMAL SEE BELOW Normal [facility] Comment on above: Result Comment: <100 mg/dl OPTIMAL 100 - 129 mg/dl NEAR OR ABOVE OPTIMAL 130 - 159 mg/dl BORDERLINE HIGH 160 - 189 mg/dl HIGH >190 mg/dl VERY HIGH Performed By: #### L IPID, CMP #### [facility] [address] [address] [address] Thierno Phipps Triglyceride [Mass/Vol] 230 mg/dL Critically high <=150 [facility] Comment on above: Performed By: #### L IPID, CMP #### [facility] [address] [address] [address] Thierno Phipps VLDL CALC 46.0 mg/dL Normal [facility] Comment on above: Performed By: #### L IPID, CMP #### [facility] [address] [address] [address] Thierno Phipps MICROALBUMIN, RAND URon 04-0 mALB <1.3 Normal <=30.0 [facility] Comment on above: Performed By: #### M ALBR #### [facility] [address] [address] [address] Thierno Phipps PROF 14(COMP METB)on 023 Albumin [Mass/Vol] 4.0 g/dL Normal 3.4-5.0 [facility] Comment on above: Performed By: #### L IPID, CMP #### [facility] [address] [address] [address] Thierno Phipps Albumin/Globulin [Mass ratio] 1.0 {ratio} Normal [facility] Comment on above: Performed By: #### L IPID, CMP #### [facility] [address] [place] [address] Dr. Thierno Phipps ALP [Catalytic activity/Vol] 93 U/L Normal 46-116 [facility] Comment on above: Performed By: #### L IPID, CMP #### [facility] [address] [address] [address] Thierno Phipps ALT [Catalytic activity/Vol] 30 U/L Normal 14-59 [facility] Comment on above: Performed By: #### L IPID, CMP #### [facility] [address] [place] [address] Dr. Thierno Phipps Anion gap [Moles/Vol] 7.9 mmol/L Normal [facility] Comment on above: Performed By: #### L IPID, CMP #### [facility] [address] [place] [address] Dr. Thierno Phipps AST [Catalytic activity/Vol] 18 U/L Normal 15-37 [facility] Comment on above: Performed By: #### L IPID, CMP #### [facility] [address] [place] [address] Dr. Thierno Phipps Bilirubin [Mass/Vol] 0.4 mg/dL Normal 0.2-1.0 [facility] Comment on above: Performed By: #### L IPID, CMP #### [facility] [address] [place] [address] Dr. Thierno Phipps Calcium [Mass/Vol] 10.0 mg/dL Normal 8.5-10.1 [facility] Comment on above: Performed By: #### L IPID, CMP #### [facility] [address] [place] [address] Dr. Thierno Phipps Chloride [Moles/Vol] 101 mmol/L Normal 98-107 [facility] Comment on above: Performed By: #### L IPID, CMP #### [facility] [address] [place] [address] Dr. Thierno Phipps CO2 [Moles/Vol] 32.9 mmol/L Critically high 21.0-32.0 [facility] Comment on above: Performed By: #### L IPID, CMP #### [facility] [address] [address] [address] Thierno Phipps Creatinine [Mass/Vol] 0.97 mg/dL Normal 0.55-1.02 [facility] Comment on above: Performed By: #### L IPID, CMP #### [facility] [address] [address] [address] Thierno Phipps EGFR-AF MAURITANIAN >60 Normal >=60 [facility] Comment on above: Performed By: #### L IPID, CMP #### [facility] [address] [address] [address] Thierno Phipps EGFR-NON AF MAURITANIAN 56 mL/min/1.73m2 Critically low >=60 [facility] Comment on above: Performed By: #### L IPID, CMP #### [facility] [address] [address] [address] Thierno Phipps Globulin (S) [Mass/Vol] 4.0 g/dL Normal [facility] Comment on above: Performed By: #### L IPID, CMP #### [facility] [address] [address] [address] Thierno Phipps Glucose [Mass/Vol] 119 mg/dL Critically high 74-106 [facility] Comment on above: Performed By: #### L IPID, CMP #### [facility] [address] [address] [address] Thierno Phipps Potassium [Moles/Vol] 3.8 mmol/L Normal 3.5-5.1 [facility] Comment on above: Performed By: #### L IPID, CMP #### [facility] [address] [address] [address] Thierno Phipps Protein [Mass/Vol] 8.0 g/dL Normal 6.4-8.2 [facility] Comment on above: Performed By: #### L IPID, CMP #### [facility] [address] [address] [address] Thierno Phipps Sodium [Moles/Vol] 138 mmol/L Normal 136-145 [facility] Comment on above: Performed By: #### L IPID, CMP #### [facility] [address] [address] [address] Thierno Phipps Urea nitrogen [Mass/Vol] 14.0 mg/dL Normal 7.0-18.0 [facility] Comment on above: Performed By: #### L IPID, CMP #### [facility] [address] [address] [address] Thierno Phipps Urea nitrogen/Creatinine [Mass ratio] 14.4 mg/mg Normal [facility] Comment on above: Performed By: #### L IPID, CMP #### [facility] [address] [address] [address] Thierno Phipps XR LSPINE 2_3 VIEWSon [...] by: RAIN HOWE Date: 2022-10-19 21:47 Normal [facility] XR HIP RT 2 3V W PELVISon [...] by: CHAITANYA DAVIS Date: 2022-10-18 16:[address] [facility] [address] LUNG CANCER SCREENINGon 0 05-17-2022 CT [...] by: CHAITANYA CROCKER Date: 2022-05-17 15:19 Normal [facility] XR CHEST 2 Von 04-13-2022 XR CHEST [...] by: WICHO CUETO Date: 2022-04-13 13:32 Normal [facility] XR KUB 1 VIEWon 04-13-2022 XR KUB [...] by: CHAITANYA CROCKER Date: 2022-04-13 17:20 Normal [facility] Vital Signs Date Time Vital Sign Value Performing Clinician Facility 08-07-2025 13:22-0400 Body height 162.56 cm Magdalene Chauhholz [employer]INE [employer]PERATOR[employer]C Work Phone: [facility] 08-07-2025 13:22-0400 Body mass index (BMI) [Ratio] 23.6 kg/m2 Magdalene Aichholz [employer]ACHINE OPERATOR-C Work Phone: [facility] 08-07-2025 13:22-0400 Body temperature 98 [degF] Magdalene Chauhholz [employer] MACHINE OPERATOR-C Work Phone: [facility] 08-07-2025 13:22-0400 Body weight 62.31 kg Magdalene Aichholz [employer] MACHINE OPERATOR-C Work Phone: [facility] 08-07-2025 13:22-0400 Diastolic blood pressure 90 mm[Hg] Magdalene Aichholz [employer] MACHINE OPERATOR-C Work Phone: [facility] 08-07-2025 13:22-0400 Heart rate 59 /min Magdalene Chauhholz [employer] MACHINE OPERATOR-C Work Phone: [facility] 08-07-2025 13:22-0400 Respiratory rate 16 /min Magdalene Aichholz [employer] MACHINE OPERATOR-C Work Phone: [facility] 08-07-2025 13:22-0400 SaO2% (BldA) [Mass fraction] 95 % Magdlaene Aichholz [employer] MACHINE OPERATOR-C Work Phone: [facility] 08-07-2025 13:22-0400 Systolic blood pressure 150 mm[Hg] Magdalene Chauhholz [employer] MACHINE OPERATOR-C Work Phone: [facility] 06-10-2025 13:03-0400 Body mass index (BMI) [Ratio] 24.03 kg/m2 Magdalene Chauhholz [employer] MACHINE OPERATOR Work Phone: [facility] 06-10-2025 13:03-0400 Body temperature 98.1 [degF] Magdalene Aichholz [employer] MACHINE OPERATOR Work Phone: [facility] 06-10-2025 13:03-0400 Body weight 63.5 kg Magdalene Aichholz [employer] MACHINE OPERATOR Work Phone: [facility] 06-10-2025 13:03-0400 Diastolic blood pressure 88 mm[Hg] Magdalene Aichholz [employer] MACHINE OPERATOR Work Phone: [facility] 06-10-2025 13:03-0400 Heart rate 56 /min Magdalene Aichholz [employer] MACHINE OPERATOR Work Phone: [facility] 06-10-2025 13:03-0400 Respiratory rate 18 /min Magdalene Aichholz [employer] MACHINE OPERATOR Work Phone: [facility] 06-10-2025 13:03-0400 SaO2% (BldA) [Mass fraction] 95 % Magdalene Aichholz [employer] MACHINE OPERATOR Work Phone: [facility] 06-10-2025 13:03-0400 Systolic blood pressure 144 mm[Hg] Magdalene Chauhholz [employer] MACHINE OPERATOR Work Phone: [facility] 04-10-2025 14:10-0400 Body mass index (BMI) [Ratio] 23.24 kg/m2 Magdalene Aichholz [employer] MACHINE OPERATOR Work Phone: [facility] 04-10-2025 14:10-0400 Body temperature 98.1 [degF] Magdalene Aichholz [employer] MACHINE OPERATOR Work Phone: [facility] 04-10-2025 14:10-0400 Body weight 61.42 kg Magdalene Aichholz [employer] MACHINE OPERATOR Work Phone: [facility] 04-10-2025 14:10-0400 Diastolic blood pressure 90 mm[Hg] Magdalene Aichholz [employer] MACHINE OPERATOR Work Phone: [facility] 04-10-2025 14:10-0400 Heart rate 55 /min Magdalene Aichholz [employer] MACHINE OPERATOR Work Phone: [facility] 04-10-2025 14:10-0400 Respiratory rate 20 /min Magdalene Aichholz [employer] MACHINE OPERATOR Work Phone: [facility] 04-10-2025 14:10-0400 SaO2% (BldA) [Mass fraction] 96 % Magdalene Aichholz [employer] MACHINE OPERATOR Work Phone: [facility] 04-10-2025 14:10-0400 Systolic blood pressure 140 mm[Hg] Magdalene Aichholz [employer] MACHINE OPERATOR Work Phone: [facility] 02-25-2025 14:10-0400 Body mass index (BMI) [Ratio] 22.45 kg/m2 Magdalene Aichholz [employer] MACHINE OPERATOR Work Phone: [facility] 02-25-2025 14:10-0400 Body temperature 98.1 [degF] Magdalene Aichholz [employer] MACHINE OPERATOR Work Phone: [facility] 02-25-2025 14:10-0400 Body weight 59.33 kg Magdalene Aichholz [employer] MACHINE OPERATOR Work Phone: [facility] 02-25-2025 14:10-0400 Diastolic blood pressure 82 mm[Hg] Magdalene Aichholz [employer] MACHINE OPERATOR Work Phone: [facility] 02-25-2025 14:10-0400 Heart rate 62 /min Magdalene Aichholz [employer] MACHINE OPERATOR Work Phone: [facility] 02-25-2025 14:10-0400 Respiratory rate 20 /min Magdalene Aichholz [employer] MACHINE OPERATOR Work Phone: [facility] 02-25-2025 14:10-0400 SaO2% (BldA) [Mass fraction] 95 % Magdalene Aichholz [employer] MACHINE OPERATOR Work Phone: [facility] 02-25-2025 14:10-0400 Systolic blood pressure 140 mm[Hg] Magdalene Aichholz [employer] LO[employer] MACHINE OPERATOR Work Phone: [facility] 12-25-2024 13:52-0500 Body height 162.6 cm Andrew Church [employer] LO[employer] MACHINE OPERATOR Work Phone: [facility] 12-25-2024 13:52-0500 Body mass index (BMI) [Ratio] 23.69 kg/m2 Andrew Church [employer] MACHINE OPERATOR Work Phone: [facility] 12-25-2024 13:52-0500 Body temperature 98.29 [degF] Andrew Church [employer]T LO[employer] MACHINE OPERATOR Work Phone: [facility] 12-25-2024 13:52-0500 Body weight 62.6 kg Andrew Church [employer] LO[employer] MACHINE OPERATOR Work Phone: [facility] 12-25-2024 13:52-0500 Diastolic blood pressure 80 mm[Hg] Andrew Church [employer]T LO[employer] MACHINE OPERATOR Work Phone: [facility] 12-25-2024 13:52-0500 Heart rate 74 /min Andrew Church [employer] LO[employer] MACHINE OPERATOR Work Phone: [facility] 12-25-2024 13:52-0500 Respiratory rate 16 /min Andrew Church BELT LO[employer] MACHINE OPERATOR Work Phone: [facility] 12-25-2024 13:52-0500 SaO2% (BldA) [Mass fraction] 94 % Andrew Church [employer] LO[employer] MACHINE OPERATOR Work Phone: [facility] 12-25-2024 13:52-0500 Systolic blood pressure 136 mm[Hg] Andrew Church BELT LO[employer] MACHINE OPERATOR Work Phone: [facility] 09-23-2024 14:23-0500 Body height 162.6 cm Andrew Church BELT LOOP MACHINE OPERATOR Work Phone: [facility] 09-23-2024 14:23-0500 Body mass index (BMI) [Ratio] 24.2 kg/m2 Andrew Church [employer] LO[employer] MACHINE OPERATOR Work Phone: [facility] 09-23-2024 14:23-0500 Body temperature 96.6 [degF] Andrew Church BELT LO[employer] MACHINE OPERATOR Work Phone: [facility] 09-23-2024 14:23-0500 Body weight 63.96 kg Andrew Church [employer]T LO[employer] MACHINE OPERATOR Work Phone: [facility] 09-23-2024 14:23-0500 Diastolic blood pressure 62 mm[Hg] Andrew Church [employer]T LO[employer] MACHINE OPERATOR Work Phone: [facility] 09-23-2024 14:23-0500 Heart rate 77 /min Andrew Church [employer]T LO[employer] MACHINE OPERATOR Work Phone: [facility] 09-23-2024 14:23-0500 Respiratory rate 20 /min Andrew Church [employer]T LOOP MACHINE OPERATOR Work Phone: [facility] 09-23-2024 14:23-0500 SaO2% (BldA) [Mass fraction] 94 % Andrew Church BELT LO[employer] MACHINE OPERATOR Work Phone: [facility] 09-23-2024 14:23-0500 Systolic blood pressure 138 mm[Hg] Andrew Church BELT LOOP MACHINE OPERATOR Work Phone: [facility] 07-24-2024 16:15-0400 Body height 162.6 cm Andrew Church BELT LOOP MACHINE OPERATOR Work Phone: [facility] 07-24-2024 16:15-0400 Body mass index (BMI) [Ratio] 24.37 kg/m2 Andrew Church [employer] LO[employer] MACHINE OPERATOR Work Phone: [facility] 07-24-2024 16:15-0400 Body temperature 97.7 [degF] Andrew Church BELT LOOP MACHINE OPERATOR Work Phone: [facility] 07-24-2024 16:15-0400 Body weight 64.41 kg Andrew Church BELT LO[employer] MACHINE OPERATOR Work Phone: [facility] 07-24-2024 16:15-0400 Diastolic blood pressure 80 mm[Hg] Andrew Church [employer]T LO[employer] MACHINE OPERATOR Work Phone: [facility] 07-24-2024 16:15-0400 Heart rate 63 /min Andrew Church BELT LOOP MACHINE OPERATOR Work Phone: [facility] Comment on above: 97% O2 07-24-2024 16:15-0400 Systolic blood pressure 130 mm[Hg] Andrew Church [employer]T LO[employer] MACHINE OPERATOR Work Phone: [facility] 02-13-2024 11:27-0400 Body height 160.02 cm [facility] 02-13-2024 11:27-0400 Body mass index (BMI) [Ratio] 22.4 kg/m2 [facility] 02-13-2024 11:27-0400 Body weight 57.6 kg [facility] 02-13-2024 11:27-0400 Diastolic blood pressure 53 mm[Hg] [facility] 02-13-2024 11:27-0400 Heart rate 60 /min [facility] 02-13-2024 11:27-0400 Systolic blood pressure 89 mm[Hg] [facility] 08-14-2023 15:00-0400 Body height 160.02 cm Robert Schwartz Other [facility] [employer] Other 08-14-2023 15:00-0400 Body mass index (BMI) [Ratio] 24.37 kg/m2 Robert Schwartz Other [employer] [facility] [employer] Other 08-14-2023 15:00-0400 Body weight 62.42 kg Robert Schwartz Other [employer] Other 08-14-2023 15:00-0400 Diastolic blood pressure 69 mm[Hg] Robert Schwartz Other [employer] Other 08-14-2023 15:00-0400 Systolic blood pressure 107 mm[Hg] Robert Schwartz Other [employer] Other 05-16-2023 14:00-0400 Body height 160.02 cm Robert Schwartz Other [employer] Other 05-16-2023 14:00-0400 Body mass index (BMI) [Ratio] 24.8 kg/m2 Robert Schwartz Other [employer] Other 05-16-2023 14:00-0400 Body weight 63.5 kg Robert Schwartz Other [facility] [employer] Other 05-16-2023 14:00-0400 Diastolic blood pressure 65 mm[Hg] Robert Schwartz Other [facility] Other 05-16-2023 14:00-0400 Systolic blood pressure 119 mm[Hg] Robert Schwartz Other [facility] Other 02-07-2023 16:00-0400 Body height 160.02 cm Robert Schwartz Other [facility] Other 02-07-2023 16:00-0400 Body mass index (BMI) [Ratio] 25.33 kg/m2 Robert Schwartz Other [facility] [employer] Other 02-07-2023 16:00-0400 Body weight 64.86 kg Robert Schwartz Other [facility] [employer] Other 02-07-2023 16:00-0400 Diastolic blood pressure 82 mm[Hg] Robert Schwartz Other [facility] [employer] Other 02-07-2023 16:00-0400 SaO2% (BldA) [Mass fraction] 97 % Robert Schwartz Other [facility] [employer] Other 02-07-2023 16:00-0400 Systolic blood pressure 124 mm[Hg] Robert Schwartz Other [employer] Other Encounters Encounter Date Encounter Type Care Provider Facility Start: 08-07-2025 End: 08-07-2025 Departed Referred Magdalene Goodrich BELT LOOP MACHINE OPERATOR-C -[facility] [place] Work Phone: Start: 08-07-2025 End: 08-07-2025 ambulatory Magdalene Goodrich BELT LOOP MACHINE OPERATOR-C Work Phone: [facility] Work Phone: Start: 08-07-2025 End: 08-07-2025 Patient encounter procedure Magdalene Goodrich BELT LOOP MACHINE OPERATOR-C -[facility] Work Phone: Start: 07-16-2025 Patient encounter status Magdalene Goodrich BELT LOOP MACHINE OPERATOR-C Work Phone: [facility] Start: 07-06-2025 End: 07-06-2025 Refill Magdalene Goodrich BELT LOOP MACHINE OPERATOR Work Phone: [facility] Comment on above: Convulsions, unspeci fied convulsion type (HCC) Start: 06-10-2025 End: 06-10-2025 Bamboo flowsheet Magdalene Joleen BELT LOOP MACHINE OPERATOR Work Phone: [facility] Start: 06-10-2025 End: 06-10-2025 Bamboo flowsheet Magdalene Goodrich BELT LOOP MACHINE OPERATOR Work Phone: [facility] Start: 06-10-2025 End: 06-10-2025 ambulatory MAGDALENE JOLEEN Not Available Start: 06-10-2025 End: 06-10-2025 Office outpatient visit 25 minutes Magdalene Goodrich BELT LOOP MACHINE OPERATOR Work Phone: [facility] [...] Unsolicited Start: 05-17-2025 End: 05-18-2025 Refill Magdalene Aichholz BELT LOOP MACHINE OPERATOR Work Phone: [facility] Comment on above: Restless leg syndrom e Start: 05-12-2025 End: 05-12-2025 Refill Magdalene Aichholz BELT LOOP MACHINE OPERATOR Work Phone: [facility] Comment on above: Lumbar back pain; FUENTES (generalized anxiety disorder) Start: 04-10-2025 End: 04-10-2025 Office outpatient visit 25 minutes Magdalene Chauhdonz BELT LOOP MACHINE OPERATOR [facility] Comment on above: Type 2 diabetes jennifer itus with stage 3a chronic kidney disease, without long-term current use of insulin (HCC) (CMS/HCC) (Primary Dx); Essential (primary) hypertension (CMS/HCC); FUENTES (generalized anxiety disorder) (CMS/[facility]); Lumbar back pain; Current episode of major depressive disorder without prior episode, unspecified depression episode severity (CMS/[facility]); Nicotine dependence, cigarettes, uncomplicated; UTI symptoms; Convulsions, unspecified convulsion type ([facility]/HCC) Start: 04-10-2025 End: 04-10-2025 ambulatory MAGDALENE AICHHOLZ Not Available Start: 03-13-2025 End: 03-13-2025 Refill Magdalene Aichholz BELT LOOP MACHINE OPERATOR Work Phone: [facility] Comment on above: Lumbar back pain Start: 03-11-2025 End: 03-11-2025 Clinisync Result Encounter Generic External Data Provider [facility] External Department Unsolicited Start: 03-11-2025 End: 03-11-2025 Clinisync Result Encounter Generic External Data Provider [facility] External Department Unsolicited Start: 03-06-2025 End: 03-06-2025 Refill Ethan Bonilla MD Work Phone: [facility] Comment on above: Cerebrovascular acci dent (CVA), unspecified mechanism ([facility]/HCC) Start: 02-25-2025 End: 02-25-2025 Bamboo flowsheet Magdalene Goodrihc BELT LOOP MACHINE OPERATOR Work Phone: [facility] Start: 02-25-2025 End: 02-25-2025 Bamboo flowsheet Magdalene Goodrich BELT LOOP MACHINE OPERATOR Work Phone: [facility] Start: 02-25-2025 End: 02-25-2025 Office outpatient visit 25 minutes Magdalene Goodrich NP Work Phone: [facility] Comment on above: Essential (primary) hypertension ([facility]) (Primary Dx); Type 2 diabetes mellitus with diabetic chronic kidney disease ([facility]); Essential (hemorrhagic) thrombocythemia; Seizure ([facility]); Restless leg syndrome; Age-related osteoporosis without current pathological fracture ([facility]); Fibromyalgia, primary; Anxiety; Current episode of major depressive disorder without prior episode, unspecified depression episode severity ([facility]); FUENTES (generalized anxiety disorder) ([facility]); Mixed hyperlipidemia ([facility]); Nicotine dependence, cigarettes, uncomplicated Start: 02-25-2025 End: 02-25-2025 ambulatory MAGDALENE EITANHOLZ Not Available Start: 02-24-2025 End: 02-25-2025 Refill Magdalene Joleen BELT LOOP MACHINE OPERATOR Work Phone: [facility] Comment on above: FUENTES (generalized anx iety disorder) ([facility]); Restless leg syndrome Start: 02-19-2025 End: 02-19-2025 Refill Magdalene Jhonyz BELT LOOP MACHINE OPERATOR Work Phone: [facility] Comment on above: Restless leg syndrom e Start: 02-12-2025 End: 02-12-2025 Refill Magdalene Joleen BELT LOOP MACHINE OPERATOR Work Phone: [facility] Comment on above: Lumbar back pain Start: 01-13-2025 End: 01-13-2025 Refill Ethan Bonilla MD Work Phone: [facility] Comment on above: Hyperlipidemia, unsp ecified hyperlipidemia type (CMS/HCC); Lumbar back pain Start: 12-25-2024 End: 12-25-2024 Bamboo flowsheet Andrew Cheathamk BELT LOOP MACHINE OPERATOR Work Phone: [facility] Start: 12-25-2024 End: 12-25-2024 Bamboo flowsheet Andrew Cheathamk BELT LOOP MACHINE OPERATOR Work Phone: [facility] Start: 12-25-2024 End: 12-25-2024 Office outpatient visit 15 minutes Andrew Church BELT LOOP MACHINE OPERATOR Work Phone: [facility] Comment on above: FUENTES (generalized anx iety disorder) (CMS/HCC) (Primary Dx); Convulsions, unspecified convulsion type (CMS/HCC); Essential (primary) hypertension (CMS/HCC); Mixed hyperlipidemia (CMS/HCC); Prediabetes Start: 12-25-2024 End: 12-25-2024 ambulatory ANDREWKHARI CHEATHAMK Not Available Start: 12-20-2024 End: 12-20-2024 Clinisync Result Encounter Andrew Church BELT LOOP 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 Work Phone: [facility] Unsolicited Start: 12-20-2024 End: 12-20-2024 Clinisync Result Encounter Andrew Church BELT LOOP MACHINE OPERATOR Work Phone: [facility] Unsolicited Start: 12-17-2024 End: 12-17-2024 Refill Dot Figueroa MA [facility] Comment on above: Lumbar back pain Start: 11-13-2024 End: 11-13-2024 Refill Andrew Church BELT LOOP MACHINE OPERATOR Work Phone: [facility] Comment on above: Lumbar back pain; Cerebrovascular accident (CVA), unspecified mechanism (CMS/HCC) Start: 10-14-2024 End: 10-16-2024 Refill Dot Figueroa MA [facility] Comment on above: Lumbar back pain Start: 09-23-2024 End: 09-23-2024 Office outpatient visit 15 minutes Andrew Church BELT LOOP MACHINE OPERATOR Work Phone: [facility] Comment on above: Prediabetes (Primary Dx); Essential (primary) hypertension (CMS/HCC); Mixed hyperlipidemia (CMS/HCC) Start: 09-23-2024 End: 09-23-2024 ambulatory ANDREW CHURCH Not Available Start: 09-23-2024 End: 09-23-2024 Bamboo flowsheet Andrew Church BELT LOOP MACHINE OPERATOR Work Phone: [facility] Start: 09-23-2024 End: 09-23-2024 Bamboo flowsheet Andrew Church BELT LOOP MACHINE OPERATOR Work Phone: [facility] Start: 09-22-2024 ambulatory [facility] Start: 09-11-2024 End: 09-11-2024 Refill Dot Figueroa MA [facility] Comment on above: Lumbar back pain Start: 09-09-2024 End: 09-16-2024 Orders Only Andrew Cheathamk BELT LOOP MACHINE OPERATOR Work Phone: [facility] Comment on above: Type 2 diabetes jennifer itus with chronic kidney disease, without long-term current use of insulin, unspecified CKD stage (CMS/HCC) (Primary Dx) Start: 09-03-2024 End: 09-03-2024 Clinisync Result Encounter Andrew Church BELT LOOP MACHINE OPERATOR Work Phone: [facility] Unsolicited Start: 09-03-2024 End: 09-03-2024 Clinisync Result Encounter Andrew Church BELT LOOP MACHINE OPERATOR Work Phone: [facility] Unsolicited Start: 09-03-2024 End: 09-03-2024 Refill Andrew Coytrick BELT LOOP MACHINE OPERATOR Work Phone: [facility] Comment on above: Restless leg syndrom e Start: 08-13-2024 End: 08-13-2024 Clinisync Result Encounter Generic External Data Provider [facility] External Department Unsolicited Start: 08-13-2024 End: 08-13-2024 Clinisync Result Encounter Generic External Data Provider [facility] External Department Unsolicited Start: 08-06-2024 End: 08-12-2024 Refill Andrew Church BELT LOOP MACHINE OPERATOR Work Phone: [facility] Comment on above: Lumbar back pain (Pr imary Dx); Hyperlipidemia, unspecified hyperlipidemia type (CMS/HCC); Essential (primary) hypertension (CMS/HCC); Restless leg syndrome; Cerebrovascular accident (CVA), unspecified mechanism (CMS/HCC) Start: 07-24-2024 End: 07-24-2024 Initial preventive medicine new patient 63yrs&> Andrew Cheathamk BELT LOOP MACHINE OPERATOR Work Phone: [facility] Comment on above: Essential (primary) hypertension (CMS/HCC) (Primary Dx); Mixed hyperlipidemia (CMS/HCC); Nicotine dependence, cigarettes, uncomplicated; Cerebrovascular accident (CVA), unspecified mechanism (CMS/HCC) Start: 07-24-2024 End: 07-24-2024 ambulatory ANDREW CHEATHAMK Not Available Start: 07-24-2024 End: 07-24-2024 Bamboo flowsheet Andrew Church BELT LOOP MACHINE OPERATOR Work Phone: [facility] Start: 07-24-2024 End: 07-24-2024 Bamboo flowsheet Andrew Church BELT LOOP MACHINE OPERATOR Work Phone: [facility] Start: 07-24-2024 Patient encounter status Janice any Church BELT LOOP MACHINE OPERATOR Work Phone: [facility] Start: 07-23-2024 Patient encounter status Janice any Church BELT LOOP MACHINE OPERATOR Work Phone: [facility] Work Phone: Start: 04-02-2024 End: 04-02-2024 ambulatory AB [facility] Start: 03-26-2024 ambulatory [place] Facility:[facility] Start: 03-25-2024 End: 03-25-2024 [facility] Start: 02-13-2024 End: 02-13-2024 ambulatory [facility] Work Phone: Start: 02-13-2024 End: 02-13-2024 Patient encounter procedure [facility] Work Phone: Start: 02-12-2024 ambulatory [facility] Start: 02-12-2024 End: 03-18-2024 [facility]phone [facility] Start: 02-12-2024 ambulatory [facility] Start: 02-09-2024 Non-patient / Non-visit [facility] Work Phone: Start: 02-08-2024 End: 02-11-2024 Emergency department patient visit [facility] Start: 02-08-2024 Non-patient / Non-visit [facility] Work Phone: Start: 01-15-2024 Non-patient / Non-visit [facility] Work Phone: Start: 12-22-2023 Non-patient / Non-visit [facility] Work Phone: Start: 10-24-2023 End: 10-24-2023 ambulatory Robert Schwartz Other [facility] Other Start: 10-24-2023 Telephone encounter Robert Schwartz [facility] Start: 09-22-2023 End: 09-22-2023 ambulatory Robert Schwartz Other [facility] Other Start: 09-22-2023 Telephone encounter Robert Schwartz [facility] Start: 08-23-2023 End: 08-23-2023 ambulatory Robert Schwartz Other [facility] Other Start: 08-23-2023 Telephone encounter Robert Schwartz [facility] Start: 08-14-2023 End: 08-14-2023 ambulatory Robert Schwartz Other [facility] Other Start: 08-14-2023 Office outpatient vi sit 15 minutes Robert Schwartz [facility] Start: 08-14-2023 Telephone encounter Robert Schwartz [facility] Start: 07-24-2023 End: 07-24-2023 ambulatory Robert Schwartz Other [facility] Other Start: 07-24-2023 Telephone encounter Robert Schwartz [facility] Start: 06-23-2023 End: 06-23-2023 ambulatory Robert Schwartz Other [facility] Other Start: 06-23-2023 Telephone encounter Robert Schwartz [facility] Start: 06-12-2023 End: 06-12-2023 ambulatory Robert Schwartz Other [facility] Other Start: 06-12-2023 Telephone encounter Robert Schwartz [facility] Start: 05-16-2023 End: 05-16-2023 ambulatory Robert Scwhartz Other [facility] Other Start: 05-16-2023 Office outpatient vi sit 15 minutes Robert Schwartz [facility] Start: 02-24-2023 End: 02-24-2023 ambulatory Robert Schwartz Other [facility] Other Start: 02-24-2023 Telephone encounter Robert Schwartz [facility] Start: 02-13-2023 End: 02-13-2023 ambulatory Fernando Silverio Other [facility] Other Start: 02-13-2023 Telephone encounter Robert Schwartz [facility] Start: 02-09-2023 End: 02-10-[address] ROBERT SCHWARTZ Facility:[facility] Start: 02-07-2023 End: 02-07-2023 ambulatory Robert Schwartz Other [facility] Other Start: 02-07-2023 Office outpatient vi sit 25 minutes Robert Schwartz [facility] Start: 10-18-2022 End: 10-19-[address] ROBERT SCHWARTZ Facility:[facility] Start: 10-14-2022 Pre-procedure evalua tion check Robert Schwartz Other [facility] Other Start: 05-17-2022 End: 05-18-[address] ROBERT SCHWARTZ Facility:[facility] Start: 04-13-2022 End: 04-14-[address] ROBERT SCHWARTZ Facility:[facility] Procedures Date Procedure Procedure Detail Performing Clinician Start: 05-30-2025 ALL CBC WITH AUTO DIFF Generic External Data Provider Start: 04-10-2025 Urnls dip stick/tablet rgnt non-auto w/o micrscp Magdalene Goodrich BELT LOOP MACHINE OPERATOR Work Phone: Start: 04-10-2025 Hemoglobin glycosylated a1c Magdalene Goodrich BELT LOOP MACHINE OPERATOR Work Phone: Start: 03-11-2025 ALL CBC WITH AUTO DIFF Generic External Data Provider Start: 12-20-2024 ALL CBC WITH AUTO DIFF Andrew Fitzpatr ick BELT LOOP MACHINE OPERATOR Work Phone: Start: 09-03-2024 ALL CBC WITH AUTO DIFF Andrew Fitzpatr ick BELT LOOP MACHINE OPERATOR Work Phone: Start: 08-13-2024 ALL CBC WITH AUTO DIFF Generic External Data Provider Start: 07-24-2024 End: 02-25-2025 H/O: artificial joint Presence of right artificial shoulder joint Andrew Church BELT LOOP MACHINE OPERATOR Work Phone: Start: 02-08-2024 Bacteria identified in Urine by Culture Start: 11-22-2018 Screening for malignant neoplasm of cervix Robert Schwartz Other Plan of Treatment Date Care Activity Detail Author Start: 12-10-2026 Glaucoma screening Diabetes: R etinopathy Screening [facility] Start: 03-19-2026 Glaucoma screening Diabetes: R etinopathy Screening [facility] Start: 12-20-2025 Urine screening for protein Diabetes: Urine Protein Screening [facility] Start: 08-07-2025 [facility] Start: 07-24-2025 Medicare Annual Well ness (AWV) Medicare Annual Wellness (AWV) [facility] Start: 07-16-2025 End: 07-16-2025 [facility] Start: 07-11-2025 Hemoglobin A1c measurement Diabetes: Hemoglobin A1C [facility] Start: 07-07-2025 Influenza vaccination Influenza Vacc ine (#1) [facility] Start: 06-10-2025 End: 06-10-2025 Patient encounter procedure 06/10/2025 1:00 PM EDT [facility] [address] [place] [address] Magdalene Goodrich, MICHELLE [address] [place] [place] [id number] [facility] Start: 04-10-2025 End: 04-10-2025 Patient encounter procedure 04/10/2025 2:00 PM EDT [facility] [address] [place] [address] Magdalene Goodrich, MICHELLE [address] [place] [place] [address] [facility] Start: 02-25-2025 End: 02-25-2025 Patient encounter procedure [facility] Comment on above: Seizure (CMS/HCC) (P rimary Dx); Type 2 diabetes mellitus with diabetic chronic kidney disease (CMS/HCC); Essential (hemorrhagic) thrombocythemia; Restless leg syndrome; Essential (primary) hypertension (CMS/HCC); Age-related osteoporosis without current pathological fracture (CMS/HCC); Fibromyalgia, primary; Anxiety; Current episode of major depressive disorder without prior episode, unspecified depression episode severity ([facility]); FUENTES (generalized anxiety disorder) ([facility]); Mixed hyperlipidemia ([facility]); Nicotine dependence, cigarettes, uncomplicated Start: 12-25-2024 End: 12-25-2024 Patient encounter procedure 12/25/2024 2:00 PM EST Office Visit [facility] [address] [phone] Andrew Church NP [address] [phone] Arrived [facility] Comment on above: Arrived Start: 12-24-2024 End: 09-23-2025 CBC W Auto Differential panel - Blood CBC and differential Lab Routine Prediabetes Expected: 12/24/2024 (Approximate), Expires: 09/23/2025 [facility] Comment on above: Expected: 12/24/2024 (Approximate), Expires: 09/23/2025 Start: 12-24-2024 End: 09-23-2025 Comprehensive metabolic 2000 panel - Serum or Plasma Comprehensive metabolic panel Lab Routine Prediabetes Expected: 12/24/2024 (Approximate), Expires: 09/23/2025 [facility] Comment on above: Expected: 12/24/2024 (Approximate), Expires: 09/23/2025 Start: 12-24-2024 End: 09-23-2025 Hemoglobin A1c/Hemoglobin.total in Blood Hemoglobin A1c Lab Routine Prediabetes Expected: 12/24/2024 (Approximate), Expires: 09/23/2025 [facility] Comment on above: Expected: 12/24/2024 (Approximate), Expires: 09/23/2025 Start: 12-23-2024 End: 12-23-2024 Patient encounter procedure 12/23/2024 2:00 PM EST Office Visit [facility] [address], [place] [phone] Andrew Church NP [address] [place] [phone] [facility] Start: 09-23-2024 End: 09-23-2024 Patient encounter procedure [facility] Comment on above: Arrived Start: 08-20-2024 End: 08-20-2024 Patient encounter procedure 08/20/2024 2:40 PM EDT Office Visit [facility] [address] [place] [address] Ese Brewer NP [address] [place] [address] [facility] [address] Start: 07-24-2024 End: 07-24-2024 Patient encounter procedure 07/24/2024 4:30 PM EDT Office Visit [facility] [address] [address] Andrew Church NP [address] [phone] Arrived [facility] Comment on above: Arrived Start: 07-24-2024 End: 07-23-2025 CBC W Auto Differential panel - Blood CBC and differential Lab Routine Essential (primary) hypertension (CMS/HCC) Mixed hyperlipidemia (CMS/HCC) Expected: 07/24/2024 (Approximate), Expires: 07/23/2025 [facility] Comment on above: Expected: 07/24/2024 (Approximate), Expires: 07/23/2025 Start: 07-24-2024 End: 07-23-2025 Comprehensive metabolic 2000 panel - Serum or Plasma Comprehensive metabolic panel Lab Routine Essential (primary) hypertension (CMS/HCC) Mixed hyperlipidemia (CMS/HCC) Expected: 07/24/2024 (Approximate), Expires: 07/23/2025 [facility] Comment on above: Expected: 07/24/2024 (Approximate), Expires: 07/23/2025 Start: 07-24-2024 End: 07-23-2025 Hemoglobin A1c/Hemoglobin.total in Blood Hemoglobin A1c Lab Routine Essential (primary) hypertension (CMS/HCC) Mixed hyperlipidemia (CMS/HCC) Cerebrovascular accident (CVA), unspecified mechanism (CMS/HCC) Expected: 07/24/2024 (Approximate), Expires: 07/23/2025 [facility] Comment on above: Expected: 07/24/2024 (Approximate), Expires: 07/23/2025 Start: 07-24-2024 End: 07-23-2025 Lipid 1996 panel - Serum or Plasma Lipid panel Lab Routine Mixed hyperlipidemia (CMS/HCC) Expected: 07/24/2024 (Approximate), Expires: 07/23/2025 [facility] Comment on above: Expected: 07/24/2024 (Approximate), Expires: 07/23/2025 Start: 07-24-2024 End: 07-23-2025 TSH W/REFLEX TO FT4 TSH W/REFLEX TO FT4 Lab Routine Essential (primary) hypertension (CMS/HCC) Expected: 07/24/2024 (Approximate), Expires: 07/23/2025 [facility] Work Phone: Comment on above: Expected: 07/24/2024 (Approximate), Expires: 07/23/2025 Start: 07-07-[address] [facility] Start: 02-13-2024 Patient referral [facility] Work Phone: Start: 04-10-2022 Adult BMI Screening Adult BMI Screen ing [facility] Start: 11-12-2014 Pneumococcal Vaccine : 65+ Years (2 of 2 - PCV) Pneumococcal Vaccine: 65+ Years (2 of 2 - PCV) [facility] Start: 2013 Fall Risk Screening Fall Risk Screen ing [facility] Start: 1998 Administration of varicella zoster vaccine Zoster (Shingles) Vaccine (1 of 2) [facility] Start: 1967 DTaP,Tdap and Td Vaccines (1 - Tdap) DTaP,Tdap and Td Vaccines (1 - Tdap) [facility] Start: 1967 Urine screening for protein Diabetes: Urine Protein Screening [facility] Start: 1960 Depression Screening Depression Scre ening [facility] Start: 1960 Tobacco Screening Tobacco Screening [facility] Start: 1958 Glaucoma screening Diabetes: R etinopathy Screening [facility] Start: 1948 Hemoglobin A1c measurement Diabetes: Hemoglobin A1C [facility] Start: 1948 Medicare Annual Well ness Visit Medicare Annual Wellness Visit [facility] Drugs identified in Urine [facility] Microalbumin/Creatin ine panel in random Urine Microalbumin / creatinine urine ratio Lab Routine Prediabetes Ordered: 09/23/2024 [facility] Work Phone: Comment on above: Ordered: 09/23/2024 Patient referral [facility] Work Phone: US Lower extremity v ein - left [facility] XR Hip - left 2 Views [facility] Immunizations Immunization Date Immunization Notes Care Provider [facility] 08-19-2024 influenza, seasonal, injectable Andrew Church BELT LOOP MACHINE OPERATOR Work Phone: [facility] 08-19-2024 influenza virus vaccine, unspecified formulation Magdalene Aichholz BELT LOOP MACHINE OPERATOR Work Phone: [facility] 07-17-2023 Influenza, Seasonal, Quadrivalent, Adjuvanted Magdalene Aichholz BELT LOOP MACHINE OPERATOR Work Phone: [facility] 07-17-2023 influenza virus vaccine, unspecified formulation Alena Palacios RN [facility] 08-10-2022 influenza virus vaccine, split virus (incl. purified surface antigen) Robert Schwartz Other [facility] Other 08-10-2022 influenza virus vaccine, unspecified formulation [facility] 08-10-2022 Influenza, High-dose Seasonal, Quadrivalent, Preservative Free Magdalene Aichholz BELT LOOP MACHINE OPERATOR Work Phone: [facility] 08-11-2021 Influenza, High-dose Seasonal, Quadrivalent, Preservative Free Magdalene Aichholz BELT LOOP MACHINE OPERATOR Work Phone: [facility] 07-20-2020 influenza, high dose seasonal, preservative-free Magdalene Aichholz BELT LOOP MACHINE OPERATOR Work Phone: [facility] 07-16-2020 unknown vaccine or immune globulin Magdalene Aichholz BELT LOOP MACHINE OPERATOR Work Phone: [facility] 07-25-2019 Seasonal trivalent influenza vaccine, adjuvanted, preservative free Magdalene Aichholz BELT LOOP MACHINE OPERATOR Work Phone: [facility] 07-13-2018 influenza, high dose seasonal, preservative-free Magdalene Aichholz BELT LOOP MACHINE OPERATOR Work Phone: [facility] 11-12-2013 pneumococcal polysaccharide vaccine, 23 valent Magdalene Aichholz BELT LOOP MACHINE OPERATOR Work Phone: [facility] 10-23-2009 novel [id number], preservative-free, injectable Magdalene Aichholz BELT LOOP MACHINE OPERATOR Work Phone: [facility] 04-06-2008 pneumococcal polysaccharide vaccine, 23 valent Magdalene Aichholz BELT LOOP MACHINE OPERATOR Work Phone: [facility] Payers Date Payer Category Payer Medicare (Managed Care) [facility] [id number] 2019 Medicare [id number] 2017 Medicaid [id number]. [id number] 1959 Medicaid [id number] 1959 Medicare [id number] 2.16.840.1.014289.19 1948 Unknown [id number] 2.16.840.1.840715.3.579.2. 593 1948 Unknown [id number] 2.16.840.1.807197.3.579.2. 593 1948 Unknown [id number] 2.16.840.1.116794.3.579.2. 593 1948 Unknown [id number] 2.16.840.1.757234.3.579.2. 593 1948 Unknown [id number] 2.16.840.1.001749.3.579.2. 1286 1948 Unknown [id number] 2.16.840.1.416012.3.579.2. 1286 1948 Unknown [id number] 2.16.840.1.842444.3.579.2. 1286 1948 Unknown [id number] 2.16.840.1.396263.3.579.2. 1286 1948 Unknown [id number] 2.16.840.1.932863.3.579.2. 1259 1948 Unknown [id number] 2.16.840.1.691883.3.579.2. 1259 1948 Unknown [id number] 2.16.840.1.640343.3.579.2. 1259 1948 Unknown [id number] 2.16.840.1.056990.3.579.2. 1259 1948 Unknown [id number] 2.16.840.1.641002.3.579.2. 1259 1948 Unknown [id number] 2.16.840.1.003683.3.579.2. 1259 Social History Date Type Detail Facility Unknown if ever smoked [facility] [employer] Other Start: 07-24-2024 End: 08-05-2025 Sex Assigned At [facility] [employer] Other Start: 1950 Sex Assigned At Female F [facility] Start: 04-06-2021 End: 07-24-2024 Tobacco smoking status IDIS Smokes tobacco daily [facility] History of tobacco use Cigarette Smoker P [facility] History of tobacco use Passive smoker [facility] Start: 07-24-2024 End: 06-10-2025 Alcoholic beverage intake Lifetime non-drinker (finding) [facility] Start: 07-24-2024 End: 06-10-2025 History of Social function [facility] Start: 1950 Sex assigned at Not on file P [facility] Start: 04-06-2021 Tobacco use and exposure Smokeless tobacco non-user [facility] Start: 04-06-2021 Alcoholic beverage intake Current non-drinker of alcohol (finding) [facility] Childcare Unknown [facility] Tobacco smoking stat [facility] Unknown if ever smoked [facility] Work Phone: Sex Female (finding) [facility] Clinical Notes 02-07-2023 to 08-07-2025 Note Date [...] UTI symptoms acute August 07, 2025 1:10pm [facility] Work Phone: 1(114) 567-414910-02-2025 Hospital Discharge instructionsAmbulatory Orders* AMB POC Ur Dipstick Time Frame: 08/07/25, Location: Determined By Patient [facility] Work Phone: 1(339) 847-429508-05-2025 History of Present illness Narrative* Magdalene Joleen, MICHELLE - 06/10/2025 1:00 PM EDT Images from [...] (dual therapy). She does not see a toolroom helper.Eye exam is not current. SUBJECTIVE: MEDICATIONS: Current [...] of the risks of continued smoking: stroke, CT, all forms of cancer, lung disease, and [...] of the risks of continued smoking: stroke, CT, all forms of cancer, lung disease, and [...] rx for bp monitor documented in this encounterResearch Psychiatric [id number] Instructions* Patient Instructions* Magdalene Goodrich NP - 06/10/2025 1:00 PM EDT Add lisinopril 10mg daily in addition to metoprolol 25mg bid Check blood pressure once a day and record Come back in 1 month and bring the log of readings and blood pressure machine documented in this encounterResearch Psychiatric [id number] History of Present illness Narrative* Magdalene Goodrich [...] being taken. She does not see a toolroom helper.Eye exam is not current. Difficulty Urinating This [...] Date Age-related osteoporosis without current pathological fracture ([facility]) B12 deficiency Current episode of major depressive disorder without prior episode ([facility]) Epilepsy, unspecified, not intractable, without status epilepticus 09/03/2018 Essential (primary) hypertension ([facility]) FUENTES (generalized anxiety disorder) ([facility]) Hyperlipidemia ([facility]) Insomnia, unspecified Left carpal tunnel syndrome Migraine Nicotine dependence, cigarettes, uncomplicated Restless leg syndrome Stroke ([facility]) Past Surgical History: Procedure Laterality Date BILATERAL [...] of major depressive disorder without prior episode ([facility]) At last appt, we discussed if need for grief counseling, she will think about this Current meds: none Overall feels she is doing better Essential (primary) hypertension ([facility]) (Chronic) Please check blood pressure daily and record DASH diet Limit caffeine Take medication as directed Contact office if chest pain, pressure, dizziness, shortness of breath, swelling legs Recommend slow position changes Current med: b raúl FUENTES (generalized anxiety disorder) ([facility]) Current meds: xanax, only takes PRN OARRS reviewed Med agreement signed 02/24/25 Lumbar back pain Takes percocet 7.5 BID Recommend pain mgmt, she is asking to wait about 2 months Is working out social security etc Relevant Medications oxyCODONE-acetaminophen (Percocet) 7.5-325 MG tablet Nicotine dependence, cigarettes, uncomplicated The patient has been advised of the risks of continued smoking: stroke, CT, all forms of cancer, lung disease, and . Options for quitting smoking include: cold turkey, hypnosis, acupuncture, nicotine replacement meds(gum, lozenges, and patches), Buproprion, and Varenicline. At this time pt is encouraged to evaluate their goals for wanting to quit smoking, and reach out toprovider when ready to start this process Type 2 diabetes mellitus with diabetic chronic kidney disease ([facility]) - Primary Check blood sugars daily, notify [...] Other Visit Diagnoses Convulsions, unspecified convulsion type (CMS/HCC) Relevant Medications levETIRAcetam (Keppra) 500 MG [...] of the risks of continued smoking: stroke, CT, all forms of cancer, lung disease, and [...] diabetes mellitus with diabetic chronic kidney disease ([facility]) Check blood sugars daily, notify if <70 [...] AM EDTAssociated Problem(s): FUENTES (generalized anxiety disorder) ([facility]) Current meds: xanax, only takes PRN OARRS [...] med: b raúl documented in this encounterResearch Psychiatric [id number] History of Present illness Narrative* Magdalene Goodrich [...] since husbandspassing Loss of apatite * Magdalene Goodrich NP - 02/25/2025 2:00 PM EDT Lesly Steve [...] Visit Age-related osteoporosis without current pathological fracture (CMS/HCC) RESOLVED: Anxiety (Chronic) Current episode of major depressive disorder without prior episode (CMS/HCC) PHQ 9=12 Current meds: none Discussed if need for grief counseling, she will think about this Essential (primary) hypertension (CMS/HCC) (Chronic) Please check blood pressure daily and record DASH diet Limit caffeine Take medication as directed Contact office if chest pain, pressure, dizziness, shortness of breath, swelling legs Recommend slow position changes Current med: b raúl FUENTES (generalized anxiety disorder) ([facility]) Current meds: xanax FUENTES 7=11 OARRS reviewed Med agreement signed Fibromyalgia, primary (Chronic) gabapentin Hyperlipidemia, unspecified ([facility]) On statin therapy Check labs yearly and prn dose chagnes Nicotine dependence, cigarettes, uncomplicated The patient has been advised of the risks of continued smoking: stroke, CT, all forms of cancer, lung disease, and [...] diabetes mellitus with diabetic chronic kidney disease ([facility]) Check blood sugars daily, notify if <70 [...] Essential (hemorrhagic) thrombocythemia Monitor labs periodically Seizure ([facility]) - Primary (Chronic) Current meds: keppra BID does follow with Neurology * Magdalene Goodrich NP - 02/25/2025 6:57 AM EDTAssociated Problem(s): Nicotine dependence, cigarettes, uncomplicated The patient has been advised of the risks of continued smoking: stroke, CT, all forms of cancer, lung disease, and [...] 6:54 AM EDTAssociated Problem(s): Essential (primary) hypertension ([facility]) Please check blood pressure daily and record [...] follow with Neurology documented in this encounterResearch Psychiatric [id number] Instructions* Patient Instructions* Magdalene Goodrich NP - 02/25/2025 2:00 PM EDT No changes in meds If you would like to see a grief counselor I can get you in touch with someone please let me know documented in this encounterResearch Psychiatric [id number] Telephone encounter Note* Telephone Encounter - GENA SMITH - 02/24/2025 8:42 AM EDT Text Wind Tunnel Technician This is Lesly Mike, my dr. is Magdalene, and I need to refill on my xanax. And I have a PIN and sent to [facility] My birthday, 1950. Thank you. [facility] [id number] Miscellaneous Notes* Telephone Encounter - GENA SMITH - 02/24/2025 8:42 AM EDT Text Wind Tunnel Technician This is Lesly Mike, my dr. is Magdalene, and I need to refill on my xanax. And I have a PIN and sent to [facility]. My birthday, 1950. Thank you. documented in this encounterResearch Psychiatric [id number] History of Present illness Narrative* Andrew Church NP - 12/25/2024 2:17 PM ESTAssociated Problem(s): FUENTES (generalized anxiety disorder) ([facility]) States she has been taking Alprazolam 0.5 [...] Denies SI/HI. Will set patient up with [facility] * Andrew Church NP - 12/25/2024 2:17 PM ESTAssociated Problem(s): Prediabetes A1C 5.8% Currently taking Farxiga 5mg Last Eye Exam done 6 months ago- @ [place], [place] * Andrew Church NP - 12/25/2024 [...] Denies any myalgias. Most recent Lipid Panel WNL Continue current regimen. Component Ref Range [...] ALBUMIN GLOBULIN RATIO 1.1 1.2 Resulting Agency [facility] Prediabetes: A1C 5.8% Currently taking Farxiga 5mg Last Eye Exam done 6 months ago- @ [place], [place] FUENTES: States she has been taking [...] Eye Exam done 6 months ago- @ [place], [place] documented in this encounterNOSoutheast Missouri Community Treatment [id number] Telephone encounter Note* Telephone Encounter - Dot Figueroa MA - 12/17/2024 1:58 PM EST MARILIN:09/23/2024 NOV:12/23/2024 [facility] [id number] Miscellaneous Notes* Telephone Encounter - Dot Figueroa MA - 12/17/2024 1:58 PM EST MARILIN:09/23/2024 NOV:12/23/2024 documented in this encounterResearch Psychiatric [id number] Telephone encounter Note* Telephone Encounter - Dot Figueroa MA - 10/14/2024 11:37 AM EST MARILIN:09/23/2024 NOV:12/23/2024 [facility] [id number] Miscellaneous Notes* Telephone Encounter - Dot Figueroa MA - 10/14/2024 11:37 AM EST MARILIN:09/23/2024 NOV:12/23/2024 documented in this [facility]11-19-2024 History of Present illness Narrative* Andrew Church NP - 09/24/2024 12:58 PM ESTAssociated Problem(s): Prediabetes A1C 6.1% Currently taking Farxiga 5mg Last Eye Exam done 6 months ago- @ [place], [place] * Andrew Church NP - 09/24/2024 12:57 PM ESTAssociated Problem(s): Type 2 diabetes mellitus with chronic kidney disease, without long-term current use of insulin (HCC) (CMS/HCC) * Andrew Church NP - 09/24/2024 12:57 PM ESTAssociated Problem(s): Hyperlipidemia, unspecified (CMS/HCC) Currently taking atorvastatin 80mg Denies any myalgias. Continue current regimen. * Andrew Church NP - 09/24/2024 12:56 PM ESTAssociated Problem(s): Essential (primary) hypertension ([facility]) Currently taking Metoprolol 25mg Checks BP at home; Averages are 130's/70's. Denies orthostatic changes, dizziness, cough, shortness of breath, swelling in extremities. Continue current regimen. Given BP log, advised pt to record BP and bring log back with them to next visit. * Andrew Church NP - 09/23/2024 2:30 PM EST Images from the original note were not included. Subjective Patient ID: eLsly Steve is a 74 y.o. female who [...] ALBUMIN GLOBULIN RATIO 1.1 1.2 Resulting Agency [facility] Prediabetes: A1C 6.1% Currently taking Farxiga 5mg Last Eye Exam done 6 months ago- @ [place], [place] Was seen in ED for CVA concerns due to muscle cramps. CT head negative. 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 Pt reports she was dehydrated but [...] Eye Exam done 6 months ago- @ [place], [place] Relevant Orders Microalbumin / creatinine urine ratio Hemoglobin A1c Comprehensive metabolic panel CBC and differential documented in this encounterResearch Psychiatric [id number] Telephone encounter Note* Telephone Encounter - Dot Figueroa MA - 09/11/2024 10:08 AM EST MARILIN:07/24/2024 NOV:09/24/2024 [facility] [id number] Miscellaneous Notes* Telephone Encounter - Dot Figueroa MA - 09/11/2024 10:08 AM EST MARILIN:07/24/2024 NOV:09/24/2024 documented in this encounterResearch Psychiatric [id number] History of Present illness Narrative* Andrew Church [...] of preventative Care- Will request results form [facility] and Dr. Schwartz Review of Systems Constitutional: [...] day. Consider tracking your food intake on [employer] or [employer]It Water: Increase water intake; GOAL [...] sleep per night. documented in this encounterResearch Psychiatric [id number] Instructions* Patient Instructions* Andrew Church NP - [...] sleep per night. documented in this encounterResearch Psychiatric [id number] [facility] Chief Complaint: New patient here to establish care. Ref from Dr. Schwartz for bradycardia. She had stroke last month and was admitted to [facility]. Still smokes almost 1 PPD but is trying to cut back. Says she's had mitral valve prolapse forever . Does feel palpitations at times. Thinks she used to see cardiology in [place] years ago. Denies chest pain, SOB, and [...] year ago. She used to see a managing director several years ago for what she describes [...] clinic following testing Jaron Johnson MD, MPH, [facility], [facility], [facility] Interventional Cardiology Pager Email: [email or web address]05-20-2024 Miscellaneous Notes* Telephone Encounter - Alena Palacios RN - 03/25/2024 9:55 AM EDT error documented in this encounterWilson [facility] Hospital05-20-2024 Telephone encounter Note* Telephone Encounter - Alena Palacios RN - 03/25/2024 9:55 AM EDT error [facility] [employer] [id number] Miscellaneous Notes* Telephone Encounter - Alena Palacios RN - 02/12/2024 11:11 AM EDT ----- Message from Cyndie Frankel PA-C sent at 02/09/2024 1:09 PM EDT ----- Regarding: [facility] up Hospital follow up. Left > R multifocal cerebral ischemic stroke, suspected cardioembolic. 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 Smoker. Expressive aphasia. Needs 30 day cardiac event monitor. Please arrange to be [place] to [place]. 4-6 week follow up with HERN[facility]N/Juan/Dr. Rose/Stroke [...] and she hung up documented in this encounterWilson Memorial Hospital04-08-2024 Telephone encounter Note* Telephone Encounter - Alena Palacios RN - 02/12/2024 11:11 AM EDT ----- Message from Cyndie Frankel PA-C sent at 02/09/2024 1:09 PM EDT ----- Regarding: [facility] up [facility] follow up. Left > R multifocal cerebral ischemic stroke, suspected cardioembolic. 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 Smoker. Expressive aphasia. Needs 30 day cardiac event monitor. Please arrange to be sent to patient house. 4-6 week follow up with [facility]/Juan/Dr. Rose/Stroke Fellow [facility]04-08-2024 Telephone encounter Note* Telephone Encounter - Dolores Leos - 02/12/2024 11:11 AM EDT Called patient and no answer, VM not set up. [facility]04-08-2024 Telephone encounter Note* Telephone Encounter - Dolores Leos - 02/12/2024 11:11 AM EDT Spoke with patient and she said to call her sister to schedule appt Called [place] and there was no answer vm was full [facility]04-08-2024 Telephone encounter Note* Telephone Encounter - Alena Palacios RN - 02/12/2024 11:11 AM EDT Dolores, when you talk to family, please let them know event monitor was sent to patient's home address and ask for patient to wear it please. [facility]04-08-2024 Telephone encounter Note* Telephone Encounter - Dolores Leos - 02/12/2024 11:11 AM EDT Called [place] and no answer, her mailbox was full. Will try back [facility]04-08-2024 Telephone encounter Note* Telephone Encounter - Dolores Leos - 02/12/2024 11:11 AM EDT Called [place] and the line answered only to disconnect [facility]04-08-2024 Telephone encounter Note* Telephone Encounter - Dolores Leos - 02/12/2024 11:11 AM EDT Called [place] 2x goes straight to which is full and can't leave messages Called patient and she hung up [employer]10-09-2023 Evaluation note* Encounter Date Diagnosis Assessment Notes Treatment Notes Treatment Clinical Notes Aug, LLQ abdominal pain (ICD-10 - R10.32) Reviewed paperwork and test results from [facility] ER. She agrees she needs a colonoscopy due to ongoing blood in her stool and LLQ pain. Agrees to referral to Dr. Stevenson. Aug, Hematochezia (ICD-10 - K92.1) as above [employer] Other 04-06-2023 NotePROCEDURE: XR HIP LT 2 [...] Electronically authenticated by: RAIN HOWE Date: 2023-02-09 11:04[facility]04-04-2023 Evaluation note* Encounter Date Diagnosis Assessment Notes [...] Also checked OARRS and reviewed pain contract w Lesly. [employer] Other Evaluation noteNo InformationNortLehigh Valley Hospital [facility] [employer] Other Evaluation noteNoEncompass Health [facility] Other Evaluation note* Diagnosis Onset Date Resolution Status Seizure acute Stroke acute [facility] Work Phone: Evaluation note* Diagnosis Lumbar [...] hypertension (CMS/HCC) Unspecified essential hypertension Mixed hyperlipidemia ([facility]/HCC) Mixed hyperlipidemia Prediabetes Other abnormal glucose Hyperlipidemia, unspecified hyperlipidemia type ([facility]/HCC) Lumbar back pain Lumbago documented [facility] encounter [facility]* Diagnosis Essential (primary) hypertension ([facility]/HCC)- Primary Unspecified essential hypertension Mixed hyperlipidemia (CMS/HCC) Mixed hyperlipidemia Nicotine dependence, cigarettes, uncomplicated Cerebrovascular accident (CVA), unspecified mechanism ([facility]/HCC) Prediabetes- Primary Other abnormal glucose Essential (primary) hypertension ([facility]/HCC) Unspecified essential hypertension Mixed hyperlipidemia (CMS/HCC) Mixed hyperlipidemia FUENTES (generalized anxiety disorder) ([facility])- Primary Generalized anxiety disorder Convulsions, unspecified convulsion type ([facility]/HCC) Essential (primary) hypertension ([facility]/HCC) Unspecified essential hypertension Mixed hyperlipidemia ([facility]/HCC) Mixed hyperlipidemia Prediabetes Other abnormal glucose Lumbar back pain Lumbago [facility]* Diagnosis Essential (primary) hypertension ([facility]/HCC)- Primary Unspecified essential hypertension Mixed hyperlipidemia ([facility]/HCC) Mixed hyperlipidemia Nicotine dependence, cigarettes, uncomplicated Cerebrovascular accident (CVA), unspecified mechanism ([facility]/HCC) Prediabetes- Primary Other abnormal glucose Essential (primary) hypertension ([facility]/HCC) Unspecified essential hypertension Mixed hyperlipidemia ([facility]/HCC) Mixed hyperlipidemia FUENTES (generalized anxiety disorder) ([facility])- Primary Generalized anxiety disorder Convulsions, unspecified convulsion type ([facility]/HCC) Essential (primary) hypertension ([facility]/HCC) Unspecified essential hypertension Mixed hyperlipidemia ([facility]) Mixed hyperlipidemia Prediabetes Other abnormal glucose Restless leg syndrome Restless legs syndrome (RLS) documented in this encounter [facility]* Diagnosis Essential (primary) hypertension ([facility]/HCC)- Primary Unspecified essential hypertension Mixed hyperlipidemia ([facility]/HCC) Mixed hyperlipidemia Nicotine dependence, cigarettes, uncomplicated Cerebrovascular accident (CVA), unspecified mechanism ([facility]/HCC) Prediabetes- Primary Other abnormal glucose Essential (primary) hypertension ([facility]/HCC) Unspecified essential hypertension Mixed hyperlipidemia ([facility]/HCC) Mixed hyperlipidemia FUENTES (generalized anxiety disorder) ([facility]/HCC)- Primary Generalized anxiety disorder Convulsions, unspecified convulsion type ([facility]/HCC) Essential (primary) hypertension ([facility]/HCC) Unspecified essential hypertension Mixed hyperlipidemia ([facility]/HCC) Mixed hyperlipidemia Prediabetes Other abnormal glucose FUENTES (generalized anxiety disorder) ([facility]) Generalized anxiety disorder Restless leg syndrome Restless legs syndrome (RLS) Seizure ([facility])- Primary Other convulsions Type 2 diabetes mellitus with diabetic chronic kidney disease ([facility] [facility]) Essential (hemorrhagic) thrombocythemia Restless leg syndrome Restless legs syndrome (RLS) Essential (primary) hypertension ([facility]) Unspecified essential hypertension Age-related osteoporosis without current pathological fracture ([facility]) Fibromyalgia, primary Anxiety Anxiety state, unspecified Current episode of major depressive disorder without prior episode, unspecified depression episode severity ([facility]) FUENTES (generalized anxiety disorder) ([facility]) Generalized anxiety disorder Mixed hyperlipidemia ([facility]) Mixed hyperlipidemia Nicotine dependence, cigarettes, uncomplicated documented in this encounter [facility]* Diagnosis Essential (primary) hypertension ([facility])- Primary Unspecified essential hypertension Mixed hyperlipidemia ([facility]) Mixed hyperlipidemia Nicotine dependence, cigarettes, uncomplicated Cerebrovascular accident (CVA), unspecified mechanism ([facility]) Prediabetes- Primary Other abnormal glucose Essential (primary) hypertension ([facility]) Unspecified essential hypertension Mixed hyperlipidemia ([facility]) Mixed hyperlipidemia FUENTES (generalized anxiety disorder) ([facility])- Primary Generalized anxiety disorder Convulsions, unspecified convulsion type ([facility]) Essential (primary) hypertension ([facility]) Unspecified essential hypertension Mixed hyperlipidemia ([facility]) Mixed hyperlipidemia Prediabetes Other abnormal glucose Essential (primary) hypertension ([facility])- Primary Unspecified essential hypertension Type 2 diabetes mellitus with diabetic chronic kidney disease ([facility]) Essential (hemorrhagic) thrombocythemia Seizure ([facility]) Other convulsions Restless leg syndrome Restless legs syndrome (RLS) Age-related osteoporosis without current pathological fracture ([facility]) Fibromyalgia, primary Anxiety Anxiety state, unspecified Current episode of major depressive disorder without prior episode, unspecified depression episode severity ([facility]) FUENTES (generalized anxiety disorder) ([facility]) Generalized anxiety disorder Mixed hyperlipidemia ([facility]) Mixed hyperlipidemia Nicotine dependence, cigarettes, uncomplicated documented in this encounter [facility]* Diagnosis Essential (primary) hypertension ([facility])- Primary Unspecified essential hypertension Mixed hyperlipidemia ([facility]) Mixed hyperlipidemia Nicotine dependence, cigarettes, uncomplicated Cerebrovascular accident (CVA), unspecified mechanism ([facility]) Prediabetes- Primary Other abnormal glucose Essential (primary) hypertension ([facility]) Unspecified essential hypertension Mixed hyperlipidemia ([facility]) Mixed hyperlipidemia FUENTES (generalized anxiety disorder) ([facility])- Primary Generalized anxiety disorder Convulsions, unspecified convulsion type ([facility]) Essential (primary) hypertension ([facility]) Unspecified essential hypertension Mixed hyperlipidemia ([facility]) Mixed hyperlipidemia Prediabetes Other abnormal glucose Essential (primary) hypertension ([facility])- Primary Unspecified essential hypertension Type 2 diabetes mellitus with diabetic chronic kidney disease ([facility]) Essential (hemorrhagic) thrombocythemia Seizure ([facility]) Other convulsions Restless leg syndrome Restless legs syndrome (RLS) Age-related osteoporosis without current pathological fracture ([facility]) Fibromyalgia, primary Anxiety Anxiety state, unspecified Current episode of major depressive disorder without prior episode, unspecified depression episode severity ([facility]) FUENTES (generalized anxiety disorder) ([facility]) Generalized anxiety disorder Mixed hyperlipidemia ([facility]) Mixed hyperlipidemia Nicotine dependence, cigarettes, uncomplicated Cerebrovascular accident (CVA), unspecified mechanism ([facility]) documented in this encounter [facility]* Diagnosis Essential (primary) hypertension ([facility])- Primary Unspecified essential hypertension Mixed hyperlipidemia ([facility]) Mixed hyperlipidemia Nicotine dependence, cigarettes, uncomplicated Cerebrovascular accident (CVA), unspecified mechanism ([facility]) Prediabetes- Primary Other abnormal glucose Essential (primary) hypertension ([facility]) Unspecified essential hypertension Mixed hyperlipidemia ([facility]) Mixed hyperlipidemia FUENTES (generalized anxiety disorder) ([facility])- Primary Generalized anxiety disorder Convulsions, unspecified convulsion type ([facility]) Essential (primary) hypertension ([facility]) Unspecified essential hypertension Mixed hyperlipidemia ([facility]) Mixed hyperlipidemia Prediabetes Other abnormal glucose Essential (primary) hypertension ([facility])- Primary Unspecified essential hypertension Type 2 diabetes mellitus with diabetic chronic kidney disease ([facility]) Essential (hemorrhagic) thrombocythemia Seizure ([facility]) Other convulsions Restless leg syndrome Restless legs syndrome (RLS) Age-related osteoporosis without current pathological fracture ([facility]) Fibromyalgia, primary Anxiety Anxiety state, unspecified Current episode of major depressive disorder without prior episode, unspecified depression episode severity ([facility]) FUENTES (generalized anxiety disorder) ([facility]) Generalized anxiety disorder Mixed hyperlipidemia ([facility]) Mixed hyperlipidemia Nicotine dependence, cigarettes, uncomplicated Lumbar back pain Lumbago documented in this encounter [facility]* Diagnosis Essential (primary) hypertension ([facility])- Primary Unspecified essential hypertension Mixed hyperlipidemia ([facility]) Mixed hyperlipidemia Nicotine dependence, cigarettes, uncomplicated Cerebrovascular accident (CVA), unspecified mechanism ([facility]) Prediabetes- Primary Other abnormal glucose Essential (primary) hypertension ([facility]) Unspecified essential hypertension Mixed hyperlipidemia ([facility]) Mixed hyperlipidemia FUENTES (generalized anxiety disorder) ([facility])- Primary Generalized anxiety disorder Convulsions, unspecified convulsion type ([facility]) Essential (primary) hypertension ([facility]) Unspecified essential hypertension Mixed hyperlipidemia ([facility]) Mixed hyperlipidemia Prediabetes Other abnormal glucose Essential (primary) hypertension ([facility])- Primary Unspecified essential hypertension Type 2 diabetes mellitus with diabetic chronic kidney disease ([facility]) Essential (hemorrhagic) thrombocythemia Seizure ([facility]) Other convulsions Restless leg syndrome Restless legs syndrome (RLS) Age-related osteoporosis without current pathological fracture ([facility]) Fibromyalgia, primary Anxiety Anxiety state, unspecified Current episode of major depressive disorder without prior episode, unspecified depression episode severity ([facility]) FUENTES (generalized anxiety disorder) ([facility]) Generalized anxiety disorder Mixed hyperlipidemia ([facility]) Mixed hyperlipidemia Nicotine dependence, cigarettes, uncomplicated Type 2 diabetes mellitus with stage 3a chronic kidney disease, without long-term current use of insulin ([facility]) ([facility])- Primary Essential (primary) hypertension ([facility]) Unspecified essential hypertension FUENTES (generalized anxiety disorder) ([facility]) Generalized anxiety disorder Lumbar back pain Lumbago Current episode of major depressive disorder without prior episode, unspecified depression episode severity ([facility]) Nicotine dependence, cigarettes, uncomplicated UTI symptoms Convulsions, unspecified convulsion type ([facility]) documented in this encounter [facility] note* Diagnosis Essential (primary) hypertension- Primary Unspecified essential hypertension Mixed hyperlipidemia Mixed hyperlipidemia Nicotine dependence, cigarettes, uncomplicated Cerebrovascular accident (CVA), unspecified mechanism ([facility]) Prediabetes- Primary Other abnormal glucose Essential (primary) [...] back pain Lumbago documented in this encounter [facility]* Diagnosis Essential (primary) hypertension- Primary [...] UTI symptoms acute August 07, 2025 1:10pm [facility] Work Phone: History general Narrative - Reported* [...] HAND RECONSTRUCTION Hospitalization History SEE SURGICAL HX [facility] Other History [facility] - [facility] Other Hospital Discharge instructionsAmbulatory Orders* Referral to Neurology Time Frame: 02/13/24, Location: None [facility] Work Phone: InstructionsNot on filedocumented in this encounter [facility]Not on filedocumented in this encounter [facility] SystemReason for referral (narrative)No reason for referral information [facility] Work Phone: Summary Purpose Family History [...] Needs colonosco py - had imaging in [facility]. Diagnosis 1 LLQ abdominal pain ( R10.32) Referral Organization [facility] santa Referring Provider First Name Robert Referring Provider Last Name Efren Referring Provider Specialty Family [facility] cine Referred Organization [facility] Referred Provider Flakito Stevenson Referred Address [address], [place],[address] Referred Provider Specialty General Surg hunter Referral Priority Routine General Notes Maida Dave 02:01:18 PM >received today, attachments made, waiting for notes to be locked Chief Complaint and Reason for Visit Chief Complaint Amb Documentation Amb Documentation [facility] d/c Reason for Visit Seizure Stroke Chief Complaint Admit Date August 07, 2025 [...] and content) DATE CREATED AUTHOR [facility]/18/2023 [facility] DATE CREATED AUTHOR AUTHOR'S ORGANIZ ATION 02/13/2024 [facility] DATE CREATED AUTHOR AUTHOR'S ORGANIZ ATION 03/28/2024 [facility] DATE CREATED AUTHOR AUTHOR'S ORGANIZ ATION 04/03/2024 [facility] DATE CREATED AUTHOR AUTHOR'S ORGANIZ ATION 09/30/2024 [facility] DATE CREATED AUTHOR AUTHOR'S ORGANIZ ATION 06/13/2025 [facility] EPIC DATE CREATED AUTHOR AUTHOR'S ORGANIZ ATION 08/17/2025 [facility] Care Teams (unrecognized sec tion [...] February 13, 2024 End: February 13, 2024 [facility] [employer] Relationship Specialty Start Date End Date Robert Schwartz MD [address] [place] [phone] PCP - General Family Medicine 03/25/24 [facility] [employer] Relationship Specialty Start Date End Date Robert Schwartz MD [address] [place] [address] PCP - General Family Medicine 03/25/24 [facility] [employer] Relationship Specialty Start Date End Date Ethan Bonilla MD [address] [place] [address] PCP - General Family Medicine 08/15/24 Andrew Church NP [address] [place] [address] Nurse Practitioner Family Medicine 08/15/24 [facility] Relationship Specialty Start Date End Date Ethan Bonilla MD [address] [place] [address] PCP - General Family Medicine 08/15/24 Andrew Church NP [address] [place], [place] [address] Nurse Practitioner Family Medicine 08/15/24 [facility] Relationship Specialty Start Date End Date Ethan Bonilla MD [address] [place], [place] [address] PCP - General Family Medicine 08/15/24 Andrew Church NP [address] [place], [place] [address] Nurse Practitioner Family Medicine 08/15/24 [facility] Relationship Specialty Start Date End Date Ethan Bonilla MD [address] [place] [address] PCP - General Family Medicine 08/15/24 Andrew Church NP [address] [place], [place] [address] Nurse Practitioner Family Medicine 08/15/24 [facility] Relationship Specialty Start Date End Date Ethan Bonilla MD [address] [place], [place] [address] PCP - General Family Medicine 08/15/24 Andrew Church NP [address] [place], [place] [address] Nurse Practitioner Family Medicine 08/15/24 [facility] Relationship Specialty Start Date End Date Robert Schwartz MD [address] [place] [address] PCP - General Family Medicine 03/25/24 [facility] Relationship Specialty Start Date End Date Ethan Bonilla MD [address] [place] [address] PCP - General Family Medicine 08/15/24 Andrew Church NP [address] [place] [address] Nurse Practitioner Family Medicine 08/15/24 [facility] Relationship Specialty Start Date End Date Robert Schwartz MD [address] [place] [address] PCP - General Family Medicine 03/25/24 [facility] [employer] Relationship Specialty Start Date End Date Ethan Bonilla MD [address] [place] [address] PCP - General Family Medicine 08/15/24 Andrew Church NP [address] [place] [address] Nurse Practitioner Family Medicine 08/15/24 [facility] Relationship Specialty Start Date End Date Ethan Bonilla MD [address] [place] [address] PCP - General Family Medicine 08/15/24 Andrew Church NP [address] [place] [address] Nurse Practitioner Family Medicine 08/15/24 [facility] Relationship Specialty Start Date End Date Saira Campbell DO [address] [place] [address], [address] [place] [address] PCP - General 12/28/17 [facility] [employer]oner Relationship Specialty Start Date End Date Saira Campbell DO [address] [place] [address], [address] [place] [address] PCP - General 12/28/17 [facility] [employer]oner Relationship Specialty Start Date End Date Ethan Bonilla MD [address] [place] [address] PCP - General Family Medicine 08/15/24 Andrew Church NP [address] [place] [address] Nurse Practitioner Family Medicine 08/15/24 [facility] Relationship Specialty Start Date End Date Ethan Bonilla MD [address] [place] [address] PCP - General Family Medicine 08/15/24 Andrew Church NP [address] [place] [address] Nurse Practitioner Family Medicine 08/15/24 [facility] Relationship Specialty Start Date End Date Ethan Bonilla MD [address] [place] [place] [address] PCP - General Family Medicine 08/15/24 Andrew Church NP [address] [place] [address] Nurse Practitioner Family Medicine 08/15/24 [facility] Relationship Specialty Start Date End Date Ethan Bonilla MD [address] [place] [address] PCP - General Family Medicine 08/15/24 Andrew Church NP [address] [place] [address] Nurse Practitioner Family Medicine 08/15/24 [facility] Relationship Specialty Start Date End Date Ethan Bonilla MD [address] [place] [address] PCP - General Family Medicine 08/15/24 Andrew Church NP [address] [place] [address] Nurse Practitioner Family Medicine 08/15/24 [facility] Relationship Specialty Start Date End Date Ethan Bonilla MD [address] [place] [address] PCP - General Family Medicine 08/15/24 Andrew Church NP [address] [place] [address] Nurse Practitioner Family Medicine 08/15/24 [facility] [employer] Relationship Specialty Start Date End Date Ethan Bonilla MD [address] [place] [address] PCP - General Family Medicine 08/15/24 Andrew Church NP [address] [place] [address] Nurse Practitioner Family Medicine 08/15/24 [facility] [employer] Relationship Specialty Start Date End Date Ethan Bonilla MD [address] [place] [address] PCP - General Family Medicine 08/15/24 Andrew Church NP [address] [place] [address] Nurse Practitioner Family Medicine 08/15/24 [facility] Relationship Specialty Start Date End Date Ethan Bonilla MD [address] [place] [address] PCP - General Family Medicine 08/15/24 Andrew Church NP [address] [place] [address] Nurse Practitioner Family Medicine 08/15/24 [facility] Relationship Specialty Start Date End Date Ethan Bonilla MD [address] [place] [address] PCP - General Family Medicine 08/15/24 Andrew Church NP [address] [place] [address] Nurse Practitioner Family Medicine 08/15/24 [facility] Relationship Specialty Start Date End Date Ethan Bonilla MD [address] [place] [address] PCP - General Family Medicine 08/15/24 Andrew Church NP [address] [place] [address] Nurse Practitioner Family Medicine 08/15/24 [facility] Relationship Specialty Start Date End Date Ethan Bonilla MD [address] [place] [address] PCP - General Family Medicine 08/15/24 Andrew Church NP [address] [place] [address] Nurse Practitioner Family Medicine 08/15/24 [facility] Relationship Specialty Start Date End Date Ethan Bonilla MD [address] [place] [address] PCP - General Family Medicine 08/15/24 Andrew Church NP [address] [place] [address] Nurse Practitioner Family Medicine 08/15/24 [facility] Relationship Specialty Start Date End Date Ethan Bonilla MD [address] [place] [address] PCP - General Family Medicine 08/15/24 Andrew Church NP [address] [place] [address] Nurse Practitioner Family Medicine 08/15/24 [facility] Relationship Specialty Start Date End Date Ethan Bonilla MD [address] [place] [address] PCP - General Family Medicine 08/15/24 Andrew Church NP [address] [place] [address] Nurse Practitioner Family Medicine 08/15/24 [facility] Relationship Specialty Start Date End Date Ethan Bonilla MD [address] [place], [place] [address] PCP - General Family Medicine 08/15/24 Andrew Church NP [address] [place], [place] [address] Nurse Practitioner Family [facility] 08/15/24 Team Status: Active Member Role Status [...] BE BASED ON THE PRIMARY CLINICAL RECORDS. [employer] provides no warranty or guarantee of the accuracy or completeness of information in this document.
== END 2025-08-19 13:33 | disposition home or self-care (01) ==
LOC: RAD 13:35
PROVIDERS: PCP Nurse Practitioner; Visit Provider Nurse Practitioner
DX: M25.552 Pain in left hip (principal); Z96.642 Presence of left artificial hip joint
CPT/HCPCS: 73502

== ENCOUNTER 2025-08-28 14:28 | Outpatient (OUT) | payer MEDICARE, MEDICAID, SELFPAY ==
--- OUTSIDE RECORDS SUMMARY | 2025-08-28 14:34 | XMS_ITS | Clinical Summary ---
Author Organization [facility] Address [address] [facility] [place] [address] Care Team Providers Care Viscose Cellar Worker Name Role Phone Ethan Bonilla MD Primary Care Provider [phone] Keira Church LEGAL RECRUITER Unavailable [phone] Allergies Active AllergyReactionsCriticalityNoted YuxkDfnkgybiDjcrczNbvgrqp73/16/2024 Penicillin G Zledzrejgx28/16/2024PenicillinsRash,NrqigraRge26/02/2021 PhenobarbitalRash,DeybimrQbn56/02/9092DckysrzhqHlmrach42/16/2024Phenytoin Sodium DxutrjhaMkhxUkr29/02/2021Zinc Ebsghwy4703/21/2024 Medications MedicationSigDispense QuantityRefillsLast FilledStart DateEnd DateStatus hydroxyurea (Hydrea) 500 MG capsule Take 500 mg by mouth Daily.04/23/2024ctive latanoprost (Xalatan) 0.005 % ophthalmic solution INSTILL 1 DROP IN EACH EYE EVERY DAY AT SPBTYPN4505/17/2024ctive aspirin 325 MG EC tablet Indications:Cerebrovascular accident (CVA), unspecified mechanism (HCC)Take 1 tablet (325 mg) by mouth Daily 30 tablet 4Active dapagliflozin (Farxiga) 5 MG Indications:Type 2 diabetes mellitus with chronic kidney disease, 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, unspecified CKD stage (HCC)Take 1 tablet (5 mg) by mouth Daily 30 tablet 5Active metoprolol tartrate (Lopressor) 25 MG tablet Indications:Cerebrovascular accident (CVA), unspecified mechanism (HCC)TAKE 1 TABLET (25 MG) BY MOUTH IN THE MORNING AND BEFORE BEDTIME 180 tablet 5Active atorvastatin (Lipitor) 80 MG tablet Indications:Hyperlipidemia, unspecified hyperlipidemia typeTAKE 1 TABLET BY MOUTH EVERY DAY 90 tablet 5Active gabapentin (Neurontin) 300 MG capsule Indications:Neuropathic PainTake 1 capsule (300 mg) by mouth Daily Take 1 capsule (300 mg) by mouth Daily 30 capsule 5Active lisinopril 10 MG tablet Indications:Essential (primary) hypertensionTake 1 tablet (10 mg) by mouth Daily 90 tablet 5Active ALPRAZolam (Xanax) 0.5 MG tablet Indications:FUENTES (generalized anxiety disorder)Take 1 tablet (0.5 mg) by mouth 2 (two) times a day as needed for anxiety 60 tablet 5Active rOPINIRole (Requip) 0.5 MG tablet Indications:Restless leg syndromeTake 1 tablet (0.5 mg) by mouth Daily 90 tablet 5Active levETIRAcetam (Keppra) 500 MG tablet Indications:Convulsions, unspecified convulsion type (HCC)TAKE 1 TABLET (500 MG) BY MOUTH IN THE MORNING AND BEFORE BEDTIME 180 tablet 5Active Active Problems ProblemNoted DateDiagnosed DateUTI omkvpdbc84/05/2025 Assessment & Plan (04/10/2025 2:51 PM EDT): Will treat with macrobid Fu if not better Type 2 diabetes mellitus with diabetic chronic kidney amveeom0102/25/2025 Assessment & Plan (06/10/2025 6:44 AM EDT): [...] farxiga A1c: 5.8 on 12/20/24 Essential (hemorrhagic) clwbwwungdnueuc92/22/2025 Assessment & Plan (02/25/2025 6:56 AM EDT): Monitor labs periodically Arthritis of right glenohumeral joint07/24/2024Other chronic pain07/24/2024 Assessment & Plan (06/10/2025 6:46 AM EDT): Is taking oxycodone 7.5mg BID prn for chronic pain Rupture of right rotator cuff07/24/2024Encounter for wellness examination 07/23/2024 Assessment & Plan [...] 6-8 hours of sleep per night. B12 pvqmcpxyvx72/28/2024urrent episode of major depressive disorder without prior ajptjsm8304/02/2024 Assessment & Plan (04/10/2025 2:51 PM EDT): At last appt, we discussed if need for grief counseling, she will think about this Current meds: none Overall feels she is doing better Assessment & Plan (02/25/2025 5:24 PM EDT): PHQ 9=12 Current meds: none Discussed if need for grief counseling, she will think about this Zeccax5304/02/2024Essential (primary) uarwznvjajzt65/28/2024 Assessment & Plan (06/10/2025 1:38 PM EDT): [...] them to next visit. FUENTES (generalized anxiety disorder)04/02/2024 Assessment & Plan (06/10/2025 6:45 AM EDT): [...] Denies SI/HI. Will set patient up with [facility] Fibromyalgia, vkeoipf8904/02/2024 Assessment & Plan (06/10/2025 6:44 AM EDT): gabapentin Assessment & Plan (02/25/2025 5:23 PM EDT): gabapentin GERD (gastroesophageal reflux disease)04/02/20249315Ghvntmfs14/28/2024 Hyperlipidemia, mmeblkserdg88/28/2024 Assessment & Plan (02/25/2025 6:57 AM EDT): [...] Check Lipid Panel Continue current regimen. Insomnia, adunamwqpqa50/28/2024Left carpal tunnel bhawbwlm36/28/2024Lumbar back pain04/02/2024 Assessment & Plan (04/10/2025 2:52 PM EDT): Takes percocet 7.5 BID Recommend pain mgmt, she is asking to wait about 2 months Is working out social security etc Tiygqjmn12/28/2024Nicotine dependence, cigarettes, mcutgmeeanmyr74/28/2024 Assessment & Plan (06/10/2025 6:44 AM EDT): The patient has been advised of the risks of continued smoking: stroke, DC, all forms of cancer, lung disease, and . Options for quitting smoking include: cold turkey, hypnosis, acupuncture, nicotine replacement meds(gum, lozenges, and patches), Buproprion, and Varenicline. At this time pt is encouraged to evaluate their goals for wanting to quit smoking, and reach out toprovider when ready to start this process Assessment & Plan (04/10/2025 7:04 AM EDT): The patient has been advised of the risks of continued smoking: stroke, DC, all forms of cancer, lung disease, and . Options for quitting smoking include: cold turkey, hypnosis, acupuncture, nicotine replacement meds(gum, lozenges, and patches), Buproprion, and Varenicline. At this time pt is encouraged to evaluate their goals for wanting to quit smoking, and reach out toprovider when ready to start this process Assessment & Plan (02/25/2025 6:57 AM EDT): The patient has been advised of the risks of continued smoking: stroke, DC, all forms of cancer, lung disease, and . Options for quitting smoking include: cold turkey, hypnosis, acupuncture, nicotine replacement meds(gum, lozenges, and patches), Buproprion, and Varenicline. At this time pt is encouraged to evaluate their goals for wanting to quit smoking, and reach out toprovider when ready to start this process Assessment & Plan (07/24/2024 6:51 PM EDT): Smoking cessation counseling provided. Restless leg cmyqkfcx01/28/2024 Assessment & Plan (02/25/2025 6:54 AM EDT): Is currently taking ropinirole Hmhjlf9003/21/2024 Assessment & Plan (07/24/2024 6:48 PM EDT): Had CVA in 02/[address] Barber and Dr. Johnson Cardiolgy Zmztvcr7003/21/20246383Connzcc59/16/2024 Assessment & Plan (02/25/2025 6:53 AM EDT): Current meds: keppra BID does follow with Neurology Drug-induced acute pancreatitis without infection or necrosis ([facility]) 04/08/2021ge-related osteoporosis without current pathological fracture 09/03/2018 Resolved Problems ProblemNoted DateDiagnosed DateResolved DateType 2 diabetes mellitus with chronic kidney disease, without long-term current use of meyjwyr6009/23/2024 12/25/2024 Assessment & Plan (09/24/2024 12:58 PM EST): Aqozwabxzlz98 Assessment & Plan (12/25/2024 2:17 PM EST): A1C 5.8% Currently taking Farxiga 5mg Last Eye Exam done 6 months ago- @ [place], [place] Assessment & Plan (09/24/2024 12:58 PM EST): A1C 6.1% Currently taking Farxiga 5mg Last Eye Exam done 6 months ago- @ [place], [place] Aftercare following joint replacement qsswynj30Presence of right artificial shoulder jointnxiety Unspecified vpdsfvaxwlz59 Encounters DateTypeDepartmentCare CunmTrkdyqqmmwp36/31/2025Refill [facility] [address] [place] [address] Magdalene Goodrich NP Convulsions, unspecified convulsion type (HCC)06/10/2025 1:00 PM EDTOffice Visit [facility] [address] [place] [address] Magdalene Goodrich NP Essential (primary) hypertension (Primary Dx); Other chronic pain; Fibromyalgia, primary; Type 2 diabetes mellitus with stage 3a chronic kidney disease, without long-term current use of insulin (HCC); Nicotine dependence, cigarettes, uncomplicated; FUENTES (generalized anxiety disorder) ; Restless leg syndrome; Lumbar back pain5Abstract [facility] [address] [place] [address] Magdalene Goodrich NP 5Bamboo flowsheet [facility] [address] [place] [address] Magdalene Goodrich NP 5Clinisync Result Encounter [facility] External Department Unsolicited Provider, Generic External Data from Last 3 Months Immunizations ImmunizationAdministration DatesNext DueInfluenza, High Dose Seasonal, Preservative Free07/20/2020,07/13/2018Influenza, High-dose Seasonal, Quadrivalent, Preservative Free08/10/2022,08/11/2021Influenza, Seasonal, Quadrivalent, Ezzjgabgmp63/11/2023Influenza, seasonal, bbyopypgtm02/14/2024 Influenza, trivalent, ddmerhsukh32/19/2019Novel iknujdkfd-L2R7-11, preservative-free10/23/2009Pneumococcal Polysaccharide IBNZ0225/05/2014, 04/06/2008Unknown outside /10/2020 Family History Medical HistoryRelationNameCommentsHeart attackBrotherHypertensionBrotherNo Known ProblemsFatherDiabetesMaternal GrandmotherCancerMotherDiabetesMother RelationNameStatusCommentsBrotherFatherMaternal GrandmotherMother Social History Tobacco UseTypesPacks/DayYears UsedDateSmoking Tobacco: Every DayCigarettes Passive Smoke Exposure: Current Tobacco Cessation:Ready to Q uit: Not Asked; Counseling Given: Not Answered Alcohol UseStandard Drinks/WeekCommentsNever0 (1 standard drink = 0.6 oz pure alcohol)PHQ-2AnswerDate RecordedPatient Health Questionnaire-2 Haavj545 CommentsUnknownSex and Gender InformationValueDate RecordedSex Assigned at BirthNot on fileLegal SprNajxnr33/15/2023 7:25 PM EDTGender IdentityNot on fileSexual OrientationNot on file Last Filed Vital Signs Vital SignReadingTime TakenCommentsBlood Maniuuek930/8806/10/2025 1:03 PM EDT Rumjn877606/10/2025 1:03 PM FYEUdmitjuvpqv88.7 ??C (98.1 ??F)06/10/2025 1:03 PM EDTRespiratory Djae263106/10/2025 1:03 PM EDTOxygen Ioikyehalt51%06/10/2025 1:03 PM EDTInhaled Oxygen Concentration--Bajmgr34.5 kg (140 lb)06/10/2025 1:03 PM EDT Gcwqsq165.6 cm (5' 4 )12/25/2024 1:52 PM ESTBody Mass Index24.03012/25/2024 1:52 PM EST Plan of Treatment Not on file Procedures Procedure NamePriorityDate/TimeAssociated DiagnosisCommentsVITAMIN L53Myshqyd 05/30/2025 2:18 PM EDT ALL FOLIC RIWVHonniah92/25/2025 2:18 PM EDT [facility] YTDJEWWLDvuufcs27/25/2025 2:18 PM EDT [facility] AND VVXSMarvcwp10/25/2025 2:18 PM EDT ALL BASIC METABOLIC WGHSHEbzjafd94/25/2025 2:18 PM EDT ALL CBC WITH AUTO GATEWaxmtfc02/25/2025 2:18 PM EDT from Last 3 Months Results * VITAMIN B12 (05/30/2025 2:18 PM EDT)ComponentValueRef RangeTest MethodAnalysis TimePerformed AtPathologist SignatureVITAMIN [id number] - 1245 pg/mLTBHComment: Performed at: ?? - [facility] [address] ??[id number] Tariff Expert: Sylvain Ralph PhD, Phone: ??[phone] Specimen (Source)Anatomical Location / LateralityCollection Method / Volume Collection TimeReceived Time05/30/2025 2:18 PM EDT05/30/2025 2:21 PM EDT Narrative CLINISYNC - 05/31/2025 5:07 AM EDT Authorizing ProviderResult TypeResult StatusGeneric External Data ProviderLAB BLOOD ORDERABLESFinal ResultPerforming OrganizationAddressCity/State/ZIP Code Phone Number [facility] * [facility] TIBC (05/30/2025 2:18 PM EDT)ComponentValueRef RangeTest Method Analysis TimePerformed AtPathologist SignatureTBH IRON77.050.0 - 170.0 ug/dL TBHTBH TOTAL IRON BINDING CGEHHCIB110.0250.0 - 450.0 ug/dLTBHTBH PERCENT IRON WTQGGYTHVR23.2%TBHSpecimen (Source)Anatomical Location / LateralityCollection Method / VolumeCollection TimeReceived Time05/30/2025 2:18 PM EDT05/30/2025 2:21 PM EDT Narrative CLINISYNC - 05/30/2025 3:35 PM EDT Authorizing ProviderResult TypeResult StatusGeneric External Data Provider CLINISYNCFinal ResultPerforming OrganizationAddressty/State/ZIP CodePhone Number [facility] * [facility] FERRITIN (05/30/2025 2:18 PM EDT)ComponentValueRef RangeTest Method Analysis TimePerformed AtPathologist WmnggbyhjVKPTJSPN85.08.0 - 252.0 ng/mLTBH Specimen (Source)Anatomical Location / LateralityCollection Method / Volume Collection TimeReceived Time05/30/2025 2:18 PM EDT05/30/2025 2:21 PM EDT Narrative CLINISYNC - 05/30/2025 4:29 PM EDT Authorizing ProviderResult TypeResult StatusGeneric External Data Provider CLINISYNCFinal ResultPerforming OrganizationAddressCity/State/ZIP CodePhone Number [facility] * ALL FOLIC ACID (05/30/2025 2:18 PM EDT)ComponentValueRef RangeTest Method Analysis TimePerformed AtPathologist PphasnwxlLDOYMY92.408.60 - 58.90 ng/mLTBH Specimen (Source)Anatomical Location / LateralityCollection Method / Volume Collection TimeReceived Time05/30/2025 2:18 PM EDT05/30/2025 2:21 PM EDT Narrative CLINISYNC - 05/30/2025 4:29 PM EDT Authorizing ProviderResult TypeResult StatusGeneric External Data Provider CLINISYNCSt. Clare[facility]S Hospitalal ResultPerforming OrganizationAddressCity/State/ZIP CodePhone Number [facility] * (ABNORMAL) ALL CBC WITH AUTO DIFF (05/30/2025 2:18 PM EDT)ComponentValueRef RangeTest MethodAnalysis TimePerformed AtPathologist SignatureTBH WBC6.24.0 - 11.0 10 3/uLTBHTBH RBC4.594.20 - 5.40 10 6/uLTBHTBH HGB16.012.0 - 16.0 g/dLTBH TB HCT48.036.0 - 48.0 %TBTHE [facility]GICAL [facility] SRO446.6(H)81.0 - 99.0 fLTBHTBH MCH34.9(H)26.7 - 34.0 pgTBHTBH MCHC33.329.9 - 35.2 g/dLTBHTBH RDW13.411.0 - 15.0 %TBHTBH PLT 258941 - 450 10 3/uLTBHTBH MPV10.89.5 - 13.5 fLTBHNEUTROPHILS PERCENT AUTO55.9 43.0 - 75.0 %TBHLYMPHOCYTES PERCENT AUTO32.420.5 - 60.0 %TBHMONOCYTES PERCENT AUTO8.21.7 - 12.0 %TBHTBH EO %2.70.9 - 7.0 %TBHBASOPHILS PERCENT AUTO0.50.2 - 2.0 %TBHIMMATURE GRANULOCYTES PCT AUTO0.30.0 - 0.5 %TBHNEUTROPHILS ABSOLUTE AUTO3.51.4 - 6.5 10 3/uLTBHLYMPHOCYTES ABSOLUTE AUTO2.01.2 - 3.8 10 3/uLTBH MONOCYTES ABSOLUTE AUTO0.50.3 - 0.8 10 3/uLTBHTBH EO #0.20.0 - 0.7 10 3/uLTBH BASOPHILS ABSOLUTE AUTO0.00.0 - 0.1 10 3/uLTBHIMMATURE GRANULOCYTES ABS AUTO 0.020.00 - 0.03 10 3/uLTBHSpecimen (Source)Anatomical Location / Laterality Collection Method / VolumeCollection TimeReceived Time05/30/2025 2:18 PM EDT 05/30/2025 2:21 PM EDT Narrative CLINISYNC - 05/30/2025 2:32 PM EDT Authorizing ProviderResult TypeResult StatusGeneric External Data Provider CLINISYNCFinal ResultPerforming OrganizationAddressty/State/ZIP CodePhone Number [facility] * ALL BASIC METABOLIC PANEL (05/30/2025 2:18 PM EDT)ComponentValueRef RangeTest MethodAnalysis TimePerformed AtPathologist BkbpilmaxDEAYON900408 - 145 mmol/L TBHPOTASSIUM4.73.5 - 5.1 mmol/MVEWINOCINYK39082 - 107 mmol/LTBHCARBON DIOXIDE 28.221.0 - 32.0 mmol/LTBHANION GAP13.5MRYSEYIIBU4820 - 106 mg/dLTBHBLOOD UREA IEVZDOFY46.07.0 - 18.0 mg/dLTBHCREATININE0.840.55 - 1.02 mg/dLTBHTBH EGFR-AF PERUVIAN>60>=60 mL/min/1.73m 2TBHTBH EGFR-NON AF PERUVIAN>60>=60 mL/min/1.73m 2TBHBUN CREATININE RATIO21.9XHEJQZKWVJ8.18.5 - 10.1 mg/dLTBHSpecimen (Source) Anatomical Location / LateralityCollection Method / VolumeCollection Time Received Time05/30/2025 2:18 PM EDT05/30/2025 2:21 PM EDT Narrative CLINISYNC - 05/30/2025 3:35 PM EDT Authorizing ProviderResult TypeResult StatusGeneric External Data Provider CLINISYNCFinal ResultPerforming OrganizationAddressty/State/ZIP CodePhone Number [facility] from Last 3 Months Insurance Care Teams Team MemberRelationshipSpecialtyStart DateEnd Date Ethan Bonilla MD PCP - GeneralFamily Punfljlh53/10/24 Keira Church NP Nurse PractitionerFamily Lxximomi36/10/24
--- OUTSIDE RECORDS SUMMARY | 2025-08-28 14:34 | XMS_ITS | Clinical Summary ---
Author Organization [employer] [facility] tem Address [id number] [address] [place] [address] Care Team Providers Care Scrum Project Manager Name Role Phone Rajendra Jc DO Primary Care Provider Matt labjem Allergies Active AllergyReactionsCriticalityNoted DateCommentsPhenytoin Sodium Extended MitnKho55/02/3946SjmxcqghkbeFledXbo91/02/6555PsifmmvfbltkuIexxNgo08/02/2021 Medications MedicationSigDispense QuantityRefillsLast FilledStart DateEnd DateStatus baclofen (LIORESAL) 20 mg tablet Take 20 mg by mouth 2 (two) times a day. Prn for muscle aches Active ALPRAZolam (XANAX) 1 mg tablet Take 1 mg by mouth 2 (two) times a day as needed for anxiety. As needed for anxiety Active metoprolol tartrate (LOPRESSOR) 50 mg tablet Take 25 mg by mouth 2 (two) times a day.Active carboxymethylcellulose (REFRESH PLUS) 0.5 % dropperette 1 drop 2 (two) times a day as needed for dry eyes.Active oxyCODONE-acetaminophen (PERCOCET) 7.5-325 mg per tablet Take 1 tablet by mouth every 8 (eight) hours as needed for pain.Active levETIRAcetam (KEPPRA) 500 mg tablet Take 1 tablet (500 mg total) by mouth 2 (two) times a day. 60 tablet 04/10/2021ctive Active Problems ProblemNoted DateDiagnosed DateDrug-induced acute pancreatitis without infection or wujypvlw78/03/2021pigastric pain04/08/2021igarette mdzeen8204/08/2021hronic narcotic use04/08/2021eizuresHypertensionGlaucomaGERD (gastroesophageal reflux disease)Fibromyalgia, primaryEczemaArthritisAnxiety Family History Medical HistoryRelationNameCommentsCOPDMotherDiabetesMotherHeart diseaseSister RelationNameStatusCommentsFatherDeceasedMotherDeceasedSisterAlive Social History Tobacco UseTypesPacks/DayYears UsedDateSmoking Tobacco: Every IdvRretkxiehy794 Smokeless Tobacco: Never Tobacco Cessation:Ready to Q uit: Yes; Counseling Given: Yes Alcohol UseStandard Drinks/WeekCommentsNo0 (1 standard drink = 0.6 oz pure alcohol)ChildcareAnswerDate MbfnmrtzPibswzlqrMjhohrp89/11/2019EmploymentAnswer Date XsyqzokpTyqwlafvftKveemho70/11/2019Purpose - LifeAnswerDate RecordedPurpose and direction in ppjxUetgnaf53/10/2021CommentsNoSex and Gender InformationValueDate RecordedSex Assigned at BirthNot on fileLegal SexFemale 06/09/2015 5:52 PM EDTGender IdentityNot on fileSexual OrientationNot on file Last Filed Vital Signs Vital SignReadingTime TakenCommentsBlood Jdnomigt611/52004/10/2021 12:18 PM EDT Oblvt676804/10/2021 12:18 PM NXTFgeuvltargp75.2 ??C (99 ??F)04/10/2021 8:00 AM EDT Respiratory Kptq198704/10/2021 8:00 AM EDTOxygen Aftxeojyxv19%04/10/2021 8:00 AM EDTInhaled Oxygen Concentration--Payokj80.5 kg (153 lb 4.8 oz)04/10/2021 4:00 AM INMNmgqrs499.6 cm (5' 4 )04/06/2021 2:01 AM EDTBody Mass Index26.31004/06/2021 2:01 AM EDT Plan of Treatment Health MaintenanceDue DateLast DoneCommentsDepression Vzfahjpim60/14/1960Tobacco Naodwqund62/14/1960DTaP,Tdap and Td Vaccines (1 - Tdap)1967Zoster (Shingles) Vaccine (1 of 2)1998Fall Risk Xghoqqjpi85/14/2013Influenza Rdpaljn90/01/257285/09/2023, 08/10/2022, 08/11/2021, Additional history exists Medical Devices Not on file Insurance * Guarantor: Lesly Steve TypeRelation to PatientDate of BirthPhone Billing AddressPersonal/FlqqpaCkop[address] [address] Advance Directives * Full Code (Latest Code Status on File) Date ActivatedDate InactivatedComments04/06/2021 3:19 AM04/10/2021 6:20 PM Care Teams Team MemberRelationshipSpecialtyStart DateEnd Date Rajendra Jc DO PCP - General12/28/17
--- OUTSIDE RECORDS SUMMARY | 2025-08-28 14:34 | XMS_ITS | Clinical Summary ---
Author Organization [facility] Address [address] [place] [address] Care Team Providers Care Early Childhood Associate Name Role Phone Olga Holloway MD Primary Care Provider [phone] Allergies Active AllergyReactionsCriticalityNoted DateCommentsNickelOther,Unknown 02/13/2024enicillinsHives,Rash,PppwbYct47/02/2021henobarbitalOther,RashLow 04/07/2021henytoinOther,Rash,UonrdqsZzj90/02/3778PiveKisnx66/09/2024 Medications MedicationSigDispense QuantityRefillsLast FilledStart DateEnd DateStatus atorvastatin (Lipitor) 80 mg tablet Take 80 mg by mouth at bedtime.03/25/2024ctive aspirin 325 mg EC tablet Take 325 mg by mouth in the morning.03/07/2024ctive levETIRAcetam (Keppra) 500 mg tablet Take 1 tablet by mouth twice a day.04/10/2021ctive rOPINIRole (Requip) 0.5 mg tablet Take 0.5 mg by mouth.Active Active Problems ProblemNoted DateDiagnosed FsdkBvnlmtg50/28/8291Nxvhkzfkf11/28/2300S25 nnwnoifuuj10/28/2024urrent episode of major depressive disorder without prior qrfjqrx0904/02/20245703Vvqbvq51/28/2024Essential (primary) jjbokzassckd78/28/2024 Fibromyalgia, uiqlnig9104/02/2024GAD (generalized anxiety disorder)04/02/2024GERD (gastroesophageal reflux disease)04/02/20242388Htbowomo16/28/2024Hyperlipidemia, zftmkdazsdo47/28/2024Insomnia, vmolsozgvgx07/28/2024Left carpal tunnel syndrome 04/02/2024Lumbar back pain04/02/20249665Suwghcjg33/28/2024Nicotine dependence, cigarettes, bgadowlkzcyhl03/28/2024estless leg gcsbratp22/28/2024phasia 03/21/20249180Hlgudnm27/16/6465Jcocgx61/16/2024hronic narcotic use04/08/2021 Cigarette lmekxa3704/08/2021rug-induced acute pancreatitis without infection or knajajpy21/03/2021pigastric pain04/08/2021ge-related osteoporosis without current pathological jnxydivr72/29/2018Epilepsy, unspecified, not intractable, without status pcytdblmfkw86/29/2018 Social History Tobacco UseTypesPacks/DayYears UsedDateSmoking Tobacco: Every DayCigarettes Smokeless Tobacco: NeverAlcohol UseStandard Drinks/WeekCommentsNot Currently0 (1 standard drink = 0.6 oz pure alcohol)UT Safety & EnvironmentAnswerDate Recorded Fear of Current or Ex-PartnerNot on file02/20/2024Emotionally AbusedNot on file 02/20/2024hysically AbusedNot on file02/20/2024Sexually AbusedNot on file 02/20/2024hysically or Sexually AbusedNot on file02/20/2024Comments UnknownSex and Gender InformationValueDate RecordedSex Assigned at BirthNot on fileLegal RkuCslccn40/16/2024 9:26 AM EDTGender IdentityNot on fileSexual OrientationNot on file Last Filed Vital Signs Vital SignReadingTime TakenCommentsBlood Lttoyakl093/70004/02/2024 2:05 PM EDT Vebqq5228/28/2024 2:05 PM EDTTemperature--Respiratory Rate--Oxygen Yqjfzulldc10% 04/02/2024 2:05 PM EDTInhaled Oxygen Concentration--Ifejaj13.7 kg (125 lb) 04/02/2024 2:05 PM TNTDmaxdh635.6 cm (5' 4 )04/02/2024 2:05 PM EDTBody Mass Index21.46004/02/2024 2:05 PM EDT Plan of Treatment Health MaintenanceDue DateLast DoneCommentsMedicare Annual Wellness (AWV) 1948Depression Ovxhwvzjq34/14/1960Adult Xjobwuo0106/19/1970Zoster Vaccines (1 of 2)1998Fall Risk Jjdngxoyx27/14/2013Pneumococcal Vaccine: 50+ Years (2 of 2 - PCV), 04/06/2008COVID-19 Vaccine (1 - season)2025Influenza Vaccine (#1)509/09/2023, 08/10/2022, 08/11/2021, Additional history existsHIB VaccinesAged OutNo longer eligible based on patient's age to complete this topicHPV VaccinesAged OutNo longer eligible based on patient's age to complete this topicIPV VaccinesAged OutNo longer eligible based on patient's age to complete this topicMeningococcal B VaccineAged OutNo longer eligible based on patient's age to complete this topic Meningococcal VaccineAged OutNo longer eligible based on patient's age to complete this topicRotavirus VaccinesAged OutNo longer eligible based on patient's age to complete this topic [place] [address] Care Teams Team MemberRelationshipSpecialtyStart DateEnd Date Olga Holloway MD [address] [facility]04/02/24
--- OUTSIDE RECORDS SUMMARY | 2025-08-28 14:36 | XMS_ITS | CCD ---
Author Organization [facility] Care Team Providers Care Boat Master Name Role Phone Robert Schwartz Unavailable Fernando Silverio Unavailable EFREN, DR ROBERT Rodriguez Admitting Unavailable SCHWARTZ, DR ROBERT Rodriguez Attending Unavailable SCHWARTZ, DR ROBERT Rodriguez Primary Care Unavailable OBI, DR CHAITANYA King Consulting Unavailable SCHWARTZ, DR [...] SCHWARTZ, DR ROBERT Rodriguez Primary Care Unavailable SOLON, DR CHAITANYA King Consulting Unavailable SCHWARTZ, DR ROBERT Rodriguez Consulting Unavailable CYNDIE FRANKEL Referring Unavailable SAIRA CAMPBELL Primary Care Unavailable Neto Hooper Attending DO Bob Andrew Referring Unava ilable JARON JOHNSON Attending Unavailable Robert Schwartz MD Primary Care Provider [phone] Ethan Bonilla MD Primary Care Provider Lynnette MARTINEZ, Andrew Unavailable SAIRA CAMPBELL Primary Care Unavailable SAIRA CAMPBELL Referring Unavailable SAIRA CAMPBELL Primary Care Unavailable SAIRA CAMPBELL Referring Unavailable SAIRA CAMPBELL Primary Care Unavailable Saira Campbell DO Primary Care Provider Andrew Church NP Unavailable [phone] ANDREW CHURCH Attending Unavailabl e AICHHOLMAGDALENE Angeles Attending Unavailable AICHJEAN CARLOS, MAGDALENE Attending Unavailable MAGDALENE GOODRICH Attending Unavailable ANDREW CHURCH Attending Unavailabl e ANDREW CHURCH Attending Unavailabl e ChauhholMagdalene Ling Primary Care Provider [phone] Magdalene Mendes Attending Provider Magdalene Goodrich Attending Unavailable Magdalene Goodirch Admitting Unavailable Allergies Allergy ClassificationReported Allergen(s)Allergy TypeDate of OnsetReaction(s) Facility (17 sources)nickel; Translations: [NICKEL]Drug Gbqdxrb73-70-5247WxkitagUniversity Hospitals [facility] (13 sources)PenicillinDrug AllergyNaval Hospital DonorSearch Other (20 sources)PHENobarbital; Translations: [PHENOBARBITAL]Drug Meclgpm45-00-5084 [facility] (20 sources)Phenytoin; Translations: [PHENYTOIN]Drug Glpxbqs16-34-2696XohfrivOhioHealth Grant Medical Center (17 sources)Zinc; Translations: [ZINC]Drug Avxmvsg90-40-5224KsxuhjeUniversity Hospitals Beachwood Medical Center (1 source)benzoin resinDrug Mvbvhby34-90-9897MtkUniversity Hospitals [facility]hu[facility] Repository (1 source)LeucineDrug AllergyUniversity Hospitals Ahuja Medical Center Repository (7 sources)Penicillins; Translations: [PENICILLINS]Drug allergy (disorder) 12-30-4978KogmjGpnUniversity Hospitals Ahuja Medical Center Repository (1 source)PhenytoinDrug Nchmqxp01-09-3666BvoUniversity Hospitals Ahuja Medical Center Repository (8 sources)Allergies ReconciledPropensity to adverse reactionsSoutheast [facility] Other (8 sources)Penicillin G Benzathine & ProcDrug allergyNaval Hospital DonorSearch Other (8 sources)PHENobarbital *HYPNOTICS/SEDATIVES/SLEEP DISORDERPropensity to adverse reactionsSoutheast [facility] Treatment Center [facility] Other (8 sources)patient allergy list reviewed by nurse or physiciaPropensity to adverse nislmbydm58-26-5021Sfzidhj:Odimax Other (20 sources)Penicillin G BenzathineAllergy to lvmksalnt20-12-3343OaeydQznrbjchgThe [facility] of [facility] (3 sources)PHENobarbital *HYPNOTICS/SEDATAllergy to laksmhlhv52-55-2726IwnhbGlenbeigh HospitalComment on above:Free Text Allergy: PHENobarbital *HYPNOTICS/SEDATIVES/SLEEP DISORDER (20 sources)Phenytoin; Translations: [PHENYTOIN SODIUM EXTENDED]Drug Allergy 10-30-9782CzhsXrrLperxs Repository (20 sources)nickel sulfateDrug Erzlumm17-50-1228HlslwvoXFLE Healthcare (20 sources)PenicillinsDrug Gmoauwdwvqv51-72-4484Lpby, UnknownHeartland Behavioral Health Services (20 sources)Zinc AcetateDrug Eohdkgq11-96-8588LZMP Healthcare (2 sources)PenicillinsPropensity to adverse reactions to exxb30-89-9536Sxqn [facility] Medications Current Medications MedicationDrug Class(es)DatesSig (Normalized)Sig (Original)acetaminophen 325 mg / oxyCODONE hydrochloride 7.5 mg oral tablet (20 sources)Opioid AgonistStart: 08-03-2025 End: 36-19-0576rbpy 1 tablet by mouth twice daily as needed for painStart: 11-15-2024 End: 40-77-0952dres 1 tablet by mouth in the morningoxyCODONE-acetaminophen (Percocet) 7.5-325 MG tablet Indications: Lumbar back pain Take 1 tablet bymouth in the morning and 1 tablet before bedtime. 60 tablet 06/10/2025 07/10/2025 ActiveStart: 75-84-1908ohkr 1 tablet by mouth in the morningoxyCODONE- acetaminophen (Percocet) 7.5-325 MG tablet Indications: Lumbar back pain Take 1 tablet bymouth in the morning and 1 tablet before bedtime. Do not start before November 15, 2024. 60 tablet 11/15/2024 ActiveStart: 10-16-2024 End: 98-03-0997yczu 1 tablet by mouth in the morningoxyCODONE-acetaminophen (Percocet) 7.5-325 MG tablet Indications: Lumbar back pain Take 1 tablet bymouth in the morning and 1 tablet before bedtime. 60 tablet 10/16/2024 11/13/2024 Discontinued (Reorder)Start: 08-12-2024 End: 20-62-6821rfnu 1 tablet by mouth in the morningoxyCODONE-acetaminophen (Percocet) 7.5-325 MG tablet Indications: Lumbar back pain Take 1 tablet bymouth in the morning and 1 tablet before bedtime. 60 tablet 09/11/2024 10/14/2024 Discontinued (Reorder)Start: 03-23-2024 End: 83-43-4959ceeg 1 tablet by mouth twice daily as needed for painOxycodone- Acetaminophen 5-325 mg tablet Discontinued 1 TAB PO Twice daily as needed for pain 14 April 23, 2024 August 03, 2025 12:31pmStart: 03-20-2024 End: 04-87-8492isbi 1 tablet by mouth twice daily as needed for painOxycodone- Acetaminophen 5-325 mg tablet Discontinued 1 TAB PO Twice daily as needed for pain 60 March 20, 2024 March 20, 2024 1:16pmStart: 03-20-2024 End: 41-65-8808xmrr 1 tablet by mouth twice daily as needed for painOxycodone- Acetaminophen 5-325 mg tablet Discontinued 1 TAB PO Twice daily as needed for pain 60 March 20, 2024 March 20, 2024 1:16pmStart: 02-22-2024 End: 34-92-8586mwxd 1 tablet by mouth three times daily as needed for pain Oxycodone-Acetaminophen 5-325 mg tablet Discontinued 1 TAB PO Three times daily as needed for pain 90 February 22, 2024 March 20, 2024 1:15pmStart: 12-22-2023 End: 06-09-8082abxa 1 tablet by mouth three times daily as needed for pain Oxycodone-Acetaminophen 7.5-325 mg tablet Discontinued 1 TAB PO Three times daily as needed for pain 90 December 22, 2023 January 22, 2024 3:55pmStart: 40-07-2097rdwf 1 tablet by mouth three times daily as neededPercocet 7.5-325 MG 1 tablet Orally three times daily, as needed for 30 days Oct, Active Start: 08-55-1944cbqj 1 tablet by mouth three times daily as neededPercocet 7.5- 325 MG 1 tablet Orally three times daily, as needed for 30 days Sep, ActiveStart: 24-14-1742tacz 1 tablet by mouth three times daily as needed Percocet 7.5-325 MG 1 tablet Orally three times daily, as needed for 30 days Aug, ActiveStart: 73-97-2749pfhe 1 tablet by mouth three times daily as neededPercocet 7.5-325 MG 1 tablet Orally three times daily, as needed for 30 days Jul, ActiveStart: 05-86-4174wdbr 1 tablet by mouth three times daily as neededPercocet 7.5-325 MG 1 tablet Orally three times daily, as needed for 30 days Jun, ActiveStart: 57-66-8545evjs 1 tablet by mouth three times daily as neededPercocet 7.5-325 MG 1 tablet Orally three times daily, as needed for 30 days May, ActiveStart: 04-28-2023 End: 11-15-7849Zbolm: 34-97-2086lnfp 1 tablet by mouth three times daily as neededPercocet 7.5-325 MG 1 tablet Orally three times daily, as needed for 30 days Feb, ActiveStart: 36-17-4306kvmh 1 tablet by mouth three times daily as neededPercocet 7.5-325 MG 1 tablet Orally three times daily, as needed for 30 days Jan, Activetake 1 tablet by mouth every eight hours as needed for painoxyCODONE-acetaminophen (PERCOCET) 7.5-325 mg per tablet Take 1 tablet by mouth every 8 (eight) hours as needed for pain. ActiveALPRAZolam 0.5 mg oral tablet (20 sources)BenzodiazepineStart: 02-22-2024 End: 88-72-8848xeia 1 tablet by mouth twice daily as needed for anxietyStart: 01-24-2023 End: 10-82-9762btez 1 tablet by mouth twice dailyAlprazolam 1 mg tablet Discontinued 1 MG PO Twice daily 60 30 December 22, 2023 1:58pm January 22, 2024 3:55pmaspirin 325 mg oral tablet (20 sources)Platelet Aggregation Inhibitor, Nonsteroidal Anti-inflammatory Drug Start: 03-07-2024 End: 53-69-0974snpi 1 tablet by mouth once dailybaclofen 20 mg oral tablet (2 sources)gamma-Aminobutyric Acid-ergic Agonisttake 1 tablet by mouth twice daily as neededbaclofen (LIORESAL) 20 mg tablet Take 20 mg by mouth 2 (two) times a day. Prn for muscle aches Activecarboxymethylcellulose sodium 5 mg/ml ophthalmic solution (2 sources)take 1 drop(s) into the eye(s) twice daily as needed carboxymethylcellulose (REFRESH PLUS) 0.5 % dropperette 1 drop 2 (two) times a day as needed for dry eyes. ActiveCiprofloxacin (5 sources)Quinolone AntimicrobialCiprofloxacin Activedapagliflozin 5 mg oral tablet (20 sources)Sodium-Glucose Cotransporter 2 InhibitorStart: 09-16-2024 End: 98-17-9682otnw 1 tablet by mouth once dailygabapentin 300 mg oral capsule (20 sources)Anti-epileptic AgentStart: 48-26-4059iupr 1 capsule by mouth once dailyStart: 05-18-2025 End: 38-68-3534sgts 1 capsule by mouth once daily, then take 1 capsule by mouth once dailygabapentin (Neurontin) 300 MG capsule Indications: Neuropathic Pain Take 1 capsule (300 mg) by mouth Daily Take 1 capsule (300 mg) by mouth Daily 30 capsule 2 05/18/2025 ActiveStart: 08-12-2024 End: 36-17-5416nwux 1 capsule by mouth once daily, then take 1 capsule by mouth once dailygabapentin (Neurontin) 300 MG capsule Indications: Neuropathic Pain Take 1 capsule (300 mg) by mouth Daily Take 1 capsule (300 mg) by mouth Daily 30 capsule 2 02/19/2025 ActiveStart: 02-09-2024 End: 78-14-3489ctwd 1 capsule by mouth three times dailyGabapentin 300 mg capsule Discontinued 300 MG PO Three times daily February 09, 2024 12:00am August 03, 2025 12:31pmStart: 37-45-3476vtjh 1 capsule by mouth three times dailyGabapentin 300 MG 1 capsule Orally 3 times per day for 30 day(s) Nov, Active End: 83-12-3464aekz 1 capsule by mouth once dailygabapentin (Neurontin) 300 MG capsule Indications: Neuropathic Pain Take 300 mg by mouth Daily 08/06/2024 Discontinued (Reorder)hydroxyurea 500 mg oral capsule (20 sources)AntimetaboliteStart: 47-37-8551sslq 1 capsule by mouth twice daily Start: 31-59-6633gomn 1 capsule by mouth once dailyhydroxyurea (Hydrea) 500 MG capsule Take 500 mg by mouth Daily. 04/23/2024 ActiveHyoscyamine (5 sources)Hyoscyamine Activelatanoprost 0.05 mg/ml ophthalmic solution (20 sources)Prostaglandin AnalogStart: 16-18-8157ckgy 1 drop(s) into the eye(s) once dailyStart: 19-95-7078uhdf 1 drop(s) into the eye(s) once daily at bedtime latanoprost (Xalatan) 0.005 % ophthalmic solution INSTILL 1 DROP IN EACH EYE EVERY DAY AT BEDTIME 05/17/2024 ActivelevETIRAcetam 500 mg oral tablet (20 sources)Start: 47-90-0082zfaq 1 tablet by mouth twice dailyStart: 07-06-2025 take 1 tablet by mouth at bedtimelevETIRAcetam (Keppra) 500 MG tablet Indications: Convulsions, unspecified convulsion type (HCC) TAKE 1 TABLET (500 MG) BY MOUTH IN THE MORNING AND BEFORE BEDTIME 180 tablet 07/06/2025 Active Start: 01-15-2024 End: 81-39-1747knfo 1 tablet by mouth twice dailyLevetiracetam 500 mg tablet Discontinued 0 .ROUTE .COMPLEX 180 January 15, 2024 1:09pm March 19, 2024 2:27pm TAKE 1 TABLET BY MOUTH TWICE A DAYStart: 04-10-2021 End: 45-00-2710fqqt 1 tablet by mouth twice dailyLevetiracetam 500 mg tablet Discontinued 500 MG PO Twice daily January 15, 2024 12:00am January 1:09pmlisinopril 10 mg oral tablet (5 sources)Angiotensin Converting Enzyme InhibitorStart: 06-10-2025 End: 63-07-3673ljqc 1 tablet by mouth once dailymetoprolol tartrate 25 mg oral tablet (20 sources)beta-Adrenergic BlockerStart: 02-06-2025 End: 31-67-1278wqho 1 tablet by mouth at bedtimemetoprolol tartrate (Lopressor) 25 MG tablet Indications: Cerebrovascular accident (CVA), unspecified mechanism (HCC) TAKE 1 TABLET (25 MG) BY MOUTH IN THE MORNING AND BEFORE BEDTIME 180 tablet 1 03/06/2025 ActiveStart: 02-09-2024 End: 20-89-0347rhei 1 tablet by mouth in the morningmetoprolol tartrate (Lopressor) 25 MG tablet Indications: Cerebrovascular accident (CVA), unspecifie d mechanism (CMS/HCC) Take 1 tablet (25 mg) by mouth in the morning and 1 tablet (25 mg) before bedtime. 60 tablet 1 11/13/2024 Activemetoprolol tartrate (LOPRESSOR) 50 mg tablet Take 25 mg by mouth 2 (two) times a day. Activetake 1 tablet by mouth twice dailyMetoprolol Tartrate 25 MG TAKE 1 TABLET BY MOUTH TWICE A DAY for 90 Activenitrofurantoin, macrocrystals 25 mg / nitrofurantoin, monohydrate 75 mg oral capsule (2 sources)Nitrofuran AntibacterialStart: 04-10-2025 End: 28-96-1255acgh 1 capsule by mouth in the morningnitrofurantoin, macrocrystal-monohydrate, (Macrobid) 100 MG capsule Indications: UTI symptoms Take 1 capsule (100 mg) by mouth in the morning and 1 capsule (100 mg) before bedtime. Do all this for 7 days. 14 capsule 04/10/2025 04/17/2025 Active Ondansetron (5 sources)Serotonin-3 Receptor AntagonistOndansetron Activeoxybutynin chloride 5 mg oral tablet (20 sources)Cholinergic Muscarinic AntagonistStart: 12-20-2023 End: 65-37-9894rgua 1 tablet by mouth every eight hourstake 1 tablet by mouth three times daily as neededoxyBUTYnin Chloride 5 MG TAKE 1 TABLET BY MOUTH THREE TIMES A DAY NEEDED for 90 ActiverOPINIRole 0.5 mg oral tablet (20 sources)Nonergot Dopamine AgonistStart: 08-12-2024 End: 91-89-5537qxvn 1 tablet by mouth once dailyStart: 01-19-2024 End: 06-25-9864xohk 1 tablet by mouth once daily at bedtimeRopinirole 0.5 mg tablet Discontinued 0 .ROUTE .COMPLEX 90 January 19, 2024 8:33am February 13, 2024 11:34am TAKE 1 TABLET BY MOUTH 1 TO 3 HOURS BEFORE BEDTIME DAILY 90Start: 01-19-2024 End: 20-30-1080xbid 1 tablet by mouth once daily at bedtimeRopinirole 0.5 mg tablet Discontinued 0.5 MG PO January 19, 2024 12:00am January 19, 2024 8:33am TAKE 1 TABLET BY MOUTH 1 TO 3 HOURS BEFORE BEDTIME DAILY Completed/Discontinued Medications MedicationDrug Class(es)DatesSig (Normalized)Sig (Original)atorvastatin 40 mg oral tablet (20 sources)HMG-CoA Reductase InhibitorStart: 07-16-2025 End: 67-90-4488vclq 2 tablets by mouth once dailyAtorvastatin 40 mg tablet Discontinued 80 MG PO Daily July 16, 2025 9:58am August 03, 2025 12:29pmStart: 03-25-2024 End: 10-61-5365lkmy 1 tablet by mouth once daily at bedtimeStart: 03-19-2024 End: 29-51-1425vzow 1 tablet by mouth once dailyAtorvastatin (Lipitor) 20 mg tablet Discontinued 20 MG PO Daily March 19, 2024 12:00am August 03, 2025 12:28pmStart: 03-19-2024 End: 52-69-0489hrce 1 tablet by mouth once dailyAtorvastatin 40 mg tablet Discontinued 40 MG PO Daily March 19, 2024 12:00am July 16, 2025 10:01am busPIRone hydrochloride 10 mg oral tablet (20 sources)Start: 11-13-2024 End: 73-44-5446vyhq 1 tablet by mouth in the morningbusPIRone (Buspar) 10 MG tablet Take 10 mg by mouth in the morning and 10 mg before bedtime. 11/13/2024 02/25/2025 Discontinued (Therapy completed)Start: 05-19-2024 End: 97-66-9923pzoq 1 tablet by mouth in the morningbusPIRone (Buspar) 10 MG tablet Take 10 mg by mouth in the morning and 10 mg before bedtime. 05/19/2024 07/24/2024 Discontinued (Ineffective)Start: 02-09-2024 End: 57-85-5127ljvt 1 tablet by mouth twice dailyBuspirone 10 mg tablet Discontinued 10 MG PO Twice daily February 09, 2024 12:00am February 13, 2024 11: 33amtake 1 tablet by mouth twice dailybusPIRone HCl 10 MG TAKE 1 TABLET BY MOUTH TWICE A DAY for 90 Activesimvastatin 40 mg oral tablet (20 sources)HMG-CoA Reductase InhibitorStart: 01-31-2024 End: 89-41-5431htpf 1 tablet by mouth once daily in the eveningSimvastatin 40 mg tablet Discontinued 0 .ROUTE .COMPLEX 90 January 31, 2024 8:43am March 19, 2024 2:40pm TAKE 1 TABLET BY MOUTH EVERY DAY IN THE EVENING FOR 90 DAYSStart: 01-30-2024 End: 64-16-7192sidm 1 tablet by mouth once dailySimvastatin 40 mg tablet Discontinued 40 MG PO Daily January 30, 2024 12:00am January 31, 2024 8:43am Start: 05-97-5152ljrz 1 tablet by mouth every twenty-four hoursSimvastatin 40 MG 1 tablet in the evening Orally Once a day for 90 days Feb, Nzaxty28 hr venlafaxine 37.5 mg extended release oral capsule (14 sources)Serotonin and Norepinephrine Reuptake InhibitorStart: 02-06-2024 End: 29-12-1679skgm 1 capsule by mouth once dailyVenlafaxine 37.5 mg capsule,extended release 24hr Discontinued 0 .ROUTE .COMPLEX 90 February 06, 2024 8:55am February 13, 2024 11:35am TAKE 1 CAPSULE BY MOUTH EVERY DAYStart: 02-02-2024 End: 05-11-6429rxjf 1 capsule by mouth once dailyVenlafaxine 37.5 mg capsule,extended release 24hr Discontinued 37.5 MG PO Daily February 02, 2024 12: 00am February 06, 2024 8:55amtake 1 capsule by mouth once dailyVenlafaxine HCl ER 37.5 MG TAKE 1 CAPSULE BY MOUTH EVERY DAY for 90 Active Problems Active Problems Problem ClassificationProblemDateDocumented DateEpisodic/ChronicAcute cerebrovascular disease (20 sources)Cerebrovascular accident; Translations: [Cerebral infarction, unspecified]Onset: 198637-08-8174FdjoslfEapuh cerebrovascular disease (1 source)Acute cerebrovascular diseaseOnset: 92-97-9621Egjetiip reactions (20 sources)Eczema; Translations: [Dermatitis, unspecified]Onset: 04-02-2024 01-17-5414SielxvihOwdzpqu disorders (20 sources)Mixed anxiety and depressive disorder; Translations: [Anxiety disorder, unspecified]Onset: 04-02-2024 Resolved: 85-37-5256LquagsaCwdcbcu dysrhythmias (4 sources)Bradycardia, unspecified; Translations: [Bradycardia]Onset: 73-80-8954YcbiekojMjamikt obstructive pulmonary disease and bronchiectasis (20 sources)Bronchitis; Translations: [Bronchitis, not specified as acute or chronic]EpisodicDiabetes mellitus with complications (20 sources)Type 2 diabetes mellitus; Translations: [Type 2 diabetes mellitus with diabetic chronic kidney disease]Onset: 09-23-2024 Resolved: 621539-01-2163NrurcleLmwcgitov of lipid metabolism (20 sources)Hyperlipidemia; Translations: [Other hyperlipidemia]Onset: 51-66-3781YkkiqwiUmmfaohpgxnxwx and diverticulitis (8 sources)Diverticulitis of colon; Translations: [Diverticulitis of intestine, part unspecified, without perforation or abscess without bleeding]Onset: 02-65-3350RjryloyVpixcbxe; convulsions (11 sources)Epilepsy; Translations: [Epilepsy, unspecified, not intractable, without status epilepticus]Onset: 607711-94-2684NyahnzdXwskfame; convulsions (20 sources)Seizure; Translations: [Unspecified convulsions]Onset: 03-21-2024 Resolved: 870645-97-4737SjswboqtOuivuzocad disorders (20 sources)Gastroesophageal reflux disease; Translations: [Gastro-esophageal reflux disease without esophagitis]Onset: 780055-52-7160CcxrfaaFjqbockii hypertension (20 sources)Essential hypertension; Translations: [Essential (primary) hypertension]Onset: 48-98-3553GllrlusLochsyubhpstjfvz hemorrhage (1 source)MelenaEpisodicGenitourinary symptoms and ill-defined conditions (20 sources)Dysuria; Translations: [Dysuria]Onset: 830424-29-4550Ijqnbxnj Glaucoma (20 sources)Glaucoma; Translations: [Unspecified glaucoma]Onset: 04-02-2024 71-06-9001FfmaoobEfzlyehn; including migraine (20 sources)Migraine; Translations: [Migraine, unspecified, not intractable, without status migrainosus]Onset: 090490-91-7143UhmpmyhNxurbanx; including migraine (8 sources)Headache; Translations: [Headache, unspecified]EpisodicMalaise and fatigue (2 sources)Fatigue; Translations: [Other fatigue]83-50-8296JfhwvgfrAhfu disorders (20 sources)Major depression, single episode; Translations: [Major depressive disorder, single episode, unspecified]Onset: hronic Neoplasms of unspecified nature or uncertain behavior (20 sources)Essential thrombocythemia; Translations: [Essential (hemorrhagic) thrombocythemia]Onset: 918608-01-5212OatbcbiAtyskpxaj of unspecified nature or uncertain behavior (2 sources)Thrombocytosis; Translations: [Thrombocythemia]11-53-4709Jtjtublo Nutritional deficiencies (20 sources)Vitamin B12 deficiency (non anemic); Translations: [Deficiency of other specified B group vitamins]Onset: 41-73-7672LxfejvmgYkxegallmxueds (20 sources)Osteoarthritis of left hip joint; Translations: [Unilateral primary osteoarthritis, left hip]Onset: 16-21-5553MqbtuyzJuebxllpppec (20 sources)Primary osteoporosis; Translations: [Age-related osteoporosis without current pathological fracture]Onset: 180625-18-9921UnxhrljNtmwc and ill-defined cerebrovascular disease (1 source)Other cerebrovascular vasospasm and vasoconstriction; Translations: [Other cerebrovascular vasospasm and vasoconstriction]Onset: 68-94-5590Bjmjsjp Other circulatory disease (8 sources)Elevated blood-pressure reading without diagnosis of hypertension; Translations: [Elevated blood-pressure reading, without diagnosis of hypertension]EpisodicOther circulatory disease (2 sources)Low blood pressure; Translations: [Hypotension, unspecified] 94-03-4115UqzimtxoNogce connective tissue disease (20 sources)Primary fibromyalgia syndrome; Translations: [Fibromyalgia]Onset: 736590-70-5411MakoklqjWfrct connective tissue disease (20 sources)Tear of right rotator cuff; Translations: [Unspecified rotator cuff tear or rupture of right shoulder, not specified as traumatic]Onset: 07-24-2024 00-51-4646GmuwdolpGpcxh hereditary and degenerative nervous system conditions (20 sources)Restless legs; Translations: [Restless legs syndrome]Onset: 876287-75-3665BilwykzTzlfv nervous system disorders (20 sources)Carpal tunnel syndrome of left wrist; Translations: [Carpal tunnel syndrome, left upper limb]Onset: 984332-22-3465VobkajyRvsqn nervous system disorders (1 source)Carpal tunnel syndrome, left upper limbChronicOther nervous system disorders (20 sources)Aphasia; Translations: [Aphasia]Onset: 126774-35-2117Mnglxsf Other nervous system disorders (20 sources)Chronic pain; Translations: [Other chronic pain]Onset: 07-24-2024 37-03-4940BmfoltfTczny non-traumatic joint disorders (2 sources)Pain in left hip; Translations: [PAIN IN LEFT HIP]Onset: 02-17-2023 EpisodicOther non-traumatic joint disorders (8 sources)Pain in right hip joint; Translations: [Pain in right hip]Episodic Other non-traumatic joint disorders (8 sources)Arthralgia of the pelvic region and thigh; Translations: [Pain in left hip]EpisodicOther non-traumatic joint disorders (4 sources)Hip pain; Translations: [Pain in left hip]22-69-1105Eleuhbok Pancreatic disorders (not diabetes) (20 sources)Drug-induced acute pancreatitis; Translations: [Drug induced acute pancreatitis without necrosis orinfection]Onset: 741122-35-8196Mnimbixt Phlebitis; thrombophlebitis and thromboembolism (4 sources)H/O: Deep vein thrombosis; Translations: [Personal history of other venous thrombosis and embolism]24-95-8132DemgubqbXoftrkhe codes; unclassified (13 sources)Acute insomnia; Translations: [Insomnia, unspecified]Episodic Residual codes; unclassified (20 sources)Insomnia; Translations: [Insomnia, unspecified]Onset: 04-02-2024 99-75-8689SuqnlaeyXytqyjbq codes; unclassified (8 sources)Body mass index 20-24 - normal; Translations: [Body mass index (BMI) 23.0-23.9, adult]EpisodicSpondylosis; intervertebral disc disorders; other back problems (2 sources)Other intervertebral disc degeneration, lumbar region; Translations: [Spondylosis without myelopathy or radiculopathy, lumbar region]Onset: 88-77-9580YogagmtSjurtedlmot; intervertebral disc disorders; other back problems (20 sources)Sciatica; Translations: [Sciatica, right side]Onset: 10-22-2022 82-19-0027NcthbuhoPtkjihmvy-related disorders (20 sources)Nicotine dependence, cigarettes, uncomplicated; Translations: [Tobacco user]Onset: 47-26-7212JfitwjeBcdvyvqiarfb (8 sources)Exposure to acute respiratory syndrome coronavirus 2; Translations: [Contact with and (suspected) exposure to COVID-19]Urinary tract infections (16 sources)Urinary tract infectious disease; Translations: [Urinary tract infection, site not specified]Onset: 11-04-9209Zlxlecoj Past or Other Problems Problem ClassificationProblemDateDocumented DateEpisodic/ChronicAbdominal pain (20 sources)Abdominal pain; Translations: [Unspecified abdominal pain]Onset: 74-82-8114XvmijtfjZzcdorfi mellitus without complication (20 sources)Abnormal glucose level; Translations: [Other abnormal glucose]Onset: 10-23-2018 Resolved: [id number]; including migraine (13 sources)Headache; including migraine; Translations: [Left temporal headache] Inflammatory diseases of female pelvic organs (8 sources)Acute vaginitis; Translations: [Acute vaginitis]Onset: 11-22-2018 EpisodicMood disorders (20 sources)Mood disordersOnset: Other non-traumatic joint disorders (4 sources)Pain in right hip; Translations: [PAIN IN RIGHT HIP]Onset: 10-18-2022 EpisodicOther non-traumatic joint disorders (8 sources)Shoulder joint pain; Translations: [Pain in right shoulder]Onset: 97-58-0498InfpgmpoNplevekj codes; unclassified (1 source)Pain, unspecified; Translations: [Pain, unspecified]Onset: 02-12-2024 EpisodicSubstance-related disorders (2 sources)Narcotic drug user; Translations: [Opioid use, unspecified, uncomplicated]Onset: [id number] Results Test NameValueInterpretationReference RangeFacilityToxassure, Urineon 08-07-2025 Toxassure, Urine SummaryFINALNormal.[facility] Physician GroupComment on above:Result Comment: TOXASSURE COMP DRUG ANALYSIS,UR Test Result Flag Units Drug Present Alpha-hydroxyalprazolam [...] is an expected metabolite of dextromethorphan, an alts-zlz-aybuekm or prescription cough suppressant. Levorphanol is a scheduled prescription medication. Dextrorphan cannot be distinguished from levorphanol by the method used for analysis. Metoprolol PRESENT Test Result Flag Units Ref Range Creatinine 58 mg/dL >=20 Declared Medications: Medication list was not provided. For clinical consultation, please call . Performed at: [facility] [address] [id number] Nurse First Assist: Latia Castellon [facility], Phone: [phone] PERFORMED BY: [address] [place] [address] PATHOLOGIST WORKING FOREMAN DANIELLA ARRIAGA M.D.Performed By: #### TOXASSURE #### [facility] ,ALL CBC WITH AUTO DIFFon 62-53-7591CESKGLDFE ABSOLUTE PSJL4GYLB Healthcare Basophils/100 WBC (Bld)0.5 %0.2 - 2.0 %[facility] HealthcareEosinophils/100 WBC (Bld) 2.7 %0.9 - 7.0 %[facility] HealthcareErythrocyte distribution width (RBC) [Ratio]13.4 %11.0 - 15.0 %[facility] HealthcareHematocrit (Bld) [Volume fraction]48 %36.0 - 48.0 % [facility] ServicesHemoglobin (Bld) [Mass/Vol]16 g/dL12.0 - 16.0 g/dLHeartland Behavioral Health Services IMMATURE GRANULOCYTES ABS AUTO0.02NOResearch Medical Center-Brookside CampusImmature granulocytes/100 WBC (Bld)0.3 %0.0 - 0.5 %[facility] ServicesInterpretation and review of laboratory resultsAbCovenant Medical CenterLYMPHOCYTES ABSOLUTE KSYZ9RYAUResearch Medical Center-Brookside Campus Lymphocytes/100 WBC (Bld)32.4 %20.5 - 60.0 %[facility] HospitalH (RBC) [Entitic mass]34.9 dcScnl68.7 - 34.0 pgHannibal Regional HospitalHC (RBC) [Mass/Vol]33.3 g/dL29.9 - 35.2 g/dLHannibal Regional HospitalV (RBC) [Entitic vol]104.6 lFMdsm80.0 - 99.0 fLHeartland Behavioral Health ServicesMONOCYTES ABSOLUTE AUTO0.5[facility] ServicesMonocytes/100 WBC (Bld)8.2 % 1.7 - 12.0 %[facility] ServicesNEUTROPHILS ABSOLUTE AUTO3.5[facility] Neutrophils/100 WBC (Bld)55.9 %43.0 - 75.0 %[facility] ServicesPlatelet mean volume (Bld) [Entitic vol]10.8 fL9.5 - 13.5 fLHeartland Behavioral Health ServicesTB EO #0.2[facility] [id number] [facility] RBC4.59NOMS [facility] WBC6.2[facility] CLINISYNCNOResearch Medical Center-Brookside CampusIchyewfyhuKxN0a (Bld) [Mass fraction]on 41-57-6107Zwkeusehzhadnk and review of laboratory resultsAbnoHospital Sisters Health System Sacred Heart HospitalLaboratory - Hematology and Cell countson 08-74-5383KfA5c (Bld) [Mass fraction]5.8 %[facility] ServicesUrinalysis macro (dipstick) panel (U)on 33-02-3297Ebpkinrqb, UA NegativeNegative - 4(70) +++ mg/dLHIGHLAND RIDGE [facility] HealthcareBlood, UANegativeNegative - 50 Hunter/mcLNOWA HealthcareClarity, UAClearNOWA HealthcareColor, UAYellowNOWA HealthcareGlucose, UAPositiveNegative - 2000(110) ++++ mg/dLHeartland Behavioral Health Services Comment on above:250Interpretation and review of laboratory resultsAbnormalHIGHLAND RIDGE HOSPITAL HealthcareKetones, UANegativeNegative - 160(16) ++++ mg/dLHeartland Behavioral Health Services Leukocytes, UATraceNegative - 500+++ Fara/mcLNOResearch Medical Center-Brookside CampusNitrite, UANegative Negative - PositiveNOWA HealthcarepH, UA65 - 9NOWA HealthcareProtein, UANegative Negative - 2000(20) ++++ mg/dLNOWA HealthcareSpec Grav, UA1.0151 - 1.03NOWA HealthcareUrobilinogen, UA0.20.2 - 12 mg/dLNOMercy Hospital South, formerly St[facility] HealthcareALL CBC WITH AUTO DIFFon 25-51-3871AQDSKFWQU ABSOLUTE KDXG4TXDRResearch Medical Center-Brookside CampusBasophils/100 WBC (Bld)0.2 %0.2 - 2.0 %NOMCameron Regional Medical CenterEosinophils/100 WBC (Bld)2.2 %0.9 - 7.0 %[facility] ServicesErythrocyte distribution width (RBC) [Ratio]16.1 %High11.0 - 15.0 %[facility] ServicesHematocrit (Bld) [Volume fraction]45.9 %36.0 - 48.0 %[facility] ServicesHemoglobin (Bld) [Mass/Vol]15.3 g/dL12.0 - 16.0 g/dLHeartland Behavioral Health Services IMMATURE GRANULOCYTES ABS AUTO0.02NOResearch Medical Center-Brookside CampusImmature granulocytes/100 WBC (Bld)0.2 %0.0 - 0.5 %[facility] HealthcareInterpretation and review of laboratory resultsAbnormMercy Philadelphia HospitalLYMPHOCYTES ABSOLUTE AUTO2.6[facility] Lymphocytes/100 WBC (Bld)31.4 %20.5 - 60.0 %[facility] HospitalH (RBC) [Entitic mass]33.1 pg26.7 - 34.0 pgHannibal Regional HospitalHC (RBC) [Mass/Vol]33.3 g/dL29.9 - 35.2 g/dLHannibal Regional HospitalV (RBC) [Entitic vol]99.4 aVAvaq56.0 - 99.0 fLHeartland Behavioral Health ServicesMONOCYTES ABSOLUTE AUTO0.6NOResearch Medical Center-Brookside CampusMonocytes/100 WBC (Bld)6.9 % 1.7 - 12.0 %[facility] ServicesNEUTROPHILS ABSOLUTE AUTO4.8NOResearch Medical Center-Brookside Campus Neutrophils/100 WBC (Bld)59.1 %43.0 - 75.0 %[facility] ServicesPlatelet mean volume (Bld) [Entitic vol]10.6 fL9.5 - 13.5 fLHeartland Behavioral Health ServicesTB EO #0.2[facility] [id number] [facility] RBC4.62NOMS [facility] WBC8.2[facility] CLINISYNCHeartland Behavioral Health ServicesALL CBC WITH AUTO DIFFon 63-06-0932UTYWQVQWD ABSOLUTE JXSJ0QKEJResearch Medical Center-Brookside CampusBasophils/100 WBC (Bld)0.5 %0.2 - 2.0 %[facility] Eosinophils/100 WBC (Bld)5.2 %0.9 - 7.0 %[facility] ServicesErythrocyte distribution width (RBC) [Ratio]12.4 %11.0 - 15.0 %[facility] ServicesHematocrit (Bld) [Volume fraction]49.7 %High36.0 - 48.0 %[facility] ServicesHemoglobin (Bld) [Mass/Vol]16.2 g/dHMzyi32.0 - 16.0 g/dLHeartland Behavioral Health ServicesIMMATURE GRANULOCYTES ABS AUTO0.01NOResearch Medical Center-Brookside CampusImmature granulocytes/100 WBC (Bld)0.1 %0.0 - 0.5 %[facility] Interpretation and review of laboratory resultsAbnormMercy Philadelphia Hospital LYMPHOCYTES ABSOLUTE IHUF1EJJYResearch Medical Center-Brookside CampusLymphocytes/100 WBC (Bld)25 %20.5 - 60.0 %[facility] HospitalH (RBC) [Entitic mass]33.3 pg26.7 - 34.0 pgHannibal Regional HospitalHC (RBC) [Mass/Vol]32.6 g/dL29.9 - 35.2 g/dLHannibal Regional HospitalV (RBC) [Entitic vol]102.3 rPTzyq08.0 - 99.0 fLHeartland Behavioral Health ServicesMONOCYTES ABSOLUTE AUTO 0.7N[facility] HospitalMonocytes/100 WBC (Bld)8.5 %1.7 - 12.0 %[facility] NEUTROPHILS ABSOLUTE AUTO4.8NOResearch Medical Center-Brookside CampusNeutrophils/100 WBC (Bld)60.7 %43.0 - 75.0 %[facility] HealthcarePlatelet mean volume (Bld) [Entitic vol]10.7 fL9.5 - 13.5 fLHeartland Behavioral Health ServicesTBH EO #0.4[facility]uder HospitalTB BPW978JbtzQAZNSaint John's [facility] RBC 4.86NOMS [facility]ruder HospitalTB WBC7.9NOWA HealthcareCLINISYNCNOMS HealthcareALL CBC WITH AUTO DIFFon 28-78-9676NAXDFHFWP ABSOLUTE QEGY8WKAF HealthcareBasophils/100 WBC (Bld)0.6 %0.2 - 2.0 %NOM HealthcareEosinophils/100 WBC (Bld)3.5 %0.9 - 7.0 % [facility] ServicesErythrocyte distribution width (RBC) [Ratio]14.7 %11.0 - 15.0 % [facility] ServicesHematocrit (Bld) [Volume fraction]42.2 %36.0 - 48.0 %[facility] ServicesHemoglobin (Bld) [Mass/Vol]13.9 g/dL12.0 - 16.0 g/dLHeartland Behavioral Health Services IMMATURE GRANULOCYTES ABS AUTO0.01NOResearch Medical Center-Brookside CampusImmature granulocytes/100 WBC (Bld)0.1 %0.0 - 0.5 %[facility] ServicesInterpretation and review of laboratory resultsAbnormalHeartland Behavioral Health ServicesLYMPHOCYTES ABSOLUTE AUTO2.5[facility] Lymphocytes/100 WBC (Bld)36.5 %20.5 - 60.0 %[facility] HospitalH (RBC) [Entitic mass]35 gjDgjg07.7 - 34.0 pgHannibal Regional HospitalHC (RBC) [Mass/Vol]32.9 g/dL29.9 - 35.2 g/dLHannibal Regional HospitalV (RBC) [Entitic vol]106.3 hDTozf05.0 - 99.0 fLHeartland Behavioral Health ServicesMONOCYTES ABSOLUTE AUTO0.6N[facility] HospitalMonocytes/100 WBC (Bld)8.4 % 1.7 - 12.0 %[facility] ServicesNEUTROPHILS ABSOLUTE AUTO3.5[facility] Neutrophils/100 WBC (Bld)50.9 %43.0 - 75.0 %[facility] ServicesPlatelet mean volume (Bld) [Entitic vol]10.7 fL9.5 - 13.5 fLSaint John's Aurora Community Hospital EO #0.2[facility] [id number] [facility] RBC3.97LowNOMS Magruder HospitalTB WBC6.8NOWA Healthcare CLINISYNCHeartland Behavioral Health ServicesALL CBC WITH AUTO DIFFon 98-90-3402LGISDJPNV ABSOLUTE AUTO0.0N[facility] HospitalBasophils/100 WBC (Bld)0.5 %0.2 - 2.0 %[facility] Eosinophils/100 WBC (Bld)3.6 %0.9 - 7.0 %[facility] ServicesErythrocyte distribution width (RBC) [Ratio]16.5 %High11.0 - 15.0 %[facility] ServicesHematocrit (Bld) [Volume fraction]41.6 %36.0 - 48.0 %[facility] ServicesHemoglobin (Bld) [Mass/Vol] 14.1 g/dL12.0 - 16.0 g/dLHeartland Behavioral Health ServicesIMMATURE GRANULOCYTES ABS AUTO0.01NOResearch Medical Center-Brookside CampusImmature granulocytes/100 WBC (Bld)0.1 %0.0 - 0.5 %[facility] Interpretation and review of laboratory resultsAbnormalHeartland Behavioral Health Services LYMPHOCYTES ABSOLUTE AUTO2.6N[facility]S [facility]uder HospitalLymphocytes/100 WBC (Bld)36.0 %20.5 - 60.0 %[facility] HospitalH (RBC) [Entitic mass]34.9 bbMwfr55.7 - 34.0 pgSaint [facility]'s [facility] (RBC) [Mass/Vol]33.9 g/dL29.9 - 35.2 g/dLHannibal Regional HospitalV (RBC) [Entitic vol]103.0 xPZsij54.0 - 99.0 fLHeartland Behavioral Health ServicesMONOCYTES ABSOLUTE AUTO 0.5N[facility] HospitalMonocytes/100 WBC (Bld)7.3 %1.7 - 12.0 %[facility] NEUTROPHILS ABSOLUTE AUTO3.8[facility] HospitalNeutrophils/100 WBC (Bld)52.5 %43.0 - 75.0 %[facility] ServicesPlatelet mean volume (Bld) [Entitic vol]10.5 fL9.5 - 13.5 fLSaint John's Aurora Community Hospital EO #0.3NOMS [facility] [id number] [facility] RBC4.04 LowNOSaint John's [facility] Hospital WBC7.3NOResearch Medical Center-Brookside CampusCLINISYNCNOMS HealthcareOffice Visit on 64-90-0074Ksrpzs-up [id number] Lesly Steve 1950 F Date Provider Department Center 04/02/2024 271-JARON JOHNSON [facility] Family History Family history unknown: Yes Level of Service:63009 MO OFFICE/OUTPATIENT NEW MODERATE MDM 45 MINUTESNormal [facility] HospitalOrders Onlyon 86-02-5827Lcqqzm [id number] Lesly Steve 1950 F Date Provider Department Center 03/29/2024 [id number], HISTORICAL [facility]AL[facility] No family history on fileNormalUniBlanchard Valley Health System Bluffton HospitalReferrals Officeon 70-29-2881Jnfkdtcov Office [id number]#1.00TIFFNoDayton Osteopathic HospitalBasophils Auto (Bld) [#/Vol]on 29-53-8796Icisbpobf (Bld) [#/Vol]0.0 10 3/uL0.0-0.1FDelaware County HospitalBasophils/100 WBC Auto (Bld)on 07-43-7296Fsxerrlum/100 WBC (Bld)0.3 %0.2-2.0[facility] Cholesterol in LDL Calc [Mass/Vol]on 61-08-2259Iaqsqhiwdjx in LDL [Mass/Vol] 141.0 mg/dLSelect Medical [facility]health Rehabilitation Hospital - DublinComment on above:<100 mg/dl CJESDEB555-179 mg/dl NEAR OR ABOVE BDIHWJB887-824 mg/dl BORDERLINE PLJW097-865 mg/dl HIGH>190 mg/dl VERY HIGHCholesterol in VLDL Calc [Mass/Vol]on 02-09-2024 Cholesterol in VLDL [Mass/Vol]25.2 mg/dLSelect Medical [facility] Eosinophils/100 WBC Auto (Bld)on 83-75-9605Drjsydqalqu/100 WBC (Bld)2.7 %0.9-7.0 [facility] DublinErythrocyte distribution width Auto (RBC) [Ratio]on 36-82-0689Idulhsabtyk distribution width (RBC) [Ratio]14.0 %11.0-15.0 [facility] DublinEstimated glomerular filtration rate (GFR) non- Americanon 63-33-9590KQH/1.73 sq M.predicted among non-blacks MDRD (S/P/Bld) [Vol rate/Area]59 mL/min/{1.73_m2}>=60[facility] DublinHematocrit Auto (Bld) [Volume fraction]on 38-74-5795Ngehbuqubr (Bld) [Volume fraction]45.5 %36.0-48.0[facility] DublinHemoglobin [Mass/volume] in Bloodon 23-36-7602Shvljahlra (Bld) [Mass/Vol]14.6 g/dL12.0-16.0 [facility] DublinLaboratory - Chemistry and Chemistry - challengeon 94-20-9577Owmlxyo [Mass/Vol]9.6 mg/dL8.5-10.1FDelaware County HospitalChloride [Moles/Vol]103 mmol/Z12-202AfjqgpccaSelect Medical [facility] Hospital - DublinCholesterol [Mass/Vol]200 mg/dL<=200[facility] Cholesterol in HDL [Mass/Vol]34 mg/bJ25-64HdqvhczyySelect Medical [facility] Comment on above:> or =60 mg/dl - LOW CARDIOVASCULAR RISK<40 mg/dl - HIGH CARDIOVASCULAR RISKCO2 [Moles/Vol]26.1 mmol/L21.0-32.0[facility] DublinCreatinine [Mass/Vol]0.93 mg/dL0.55-1.02[facility] GFR/1.73 sq M.predicted MDRD (S/P/Bld) [Vol rate/Area]mL/min/{1.73_m2}>=60 [facility] DublinGlucose [Mass/Vol]116 mg/wF18-709PhruvxghbSelect Medical [facility] Rehabilitation Hospital - DublinPotassium [Moles/Vol]4.2 mmol/L3.5-5.1FGrand Lake Joint Township District Memorial Hospitalodium [Moles/Vol]139 mmol/G838-320XvgpqlzjgSelect Medical [facility] Rehabilitation Hospital - DublinTriglyceride [Mass/Vol]126 mg/dL<=150[facility] DublinUrea nitrogen [Mass/Vol]22.0 mg/dL7.0-18.0[facility] DublinUrea nitrogen/Creatinine [Mass ratio]23.7 mg/mgSelect Medical [facility] Laboratory - Hematology and Cell countson 51-53-0032Amlriaxj granulocytes/100 WBC (Bld)0.3 %0.0-0.5FDelaware County HospitalLeukocytes [#/volume] corrected for nucleated erythrocytes in Blood by Automated counon 01-42-0164PHE corrected for nucl RBC Auto (Bld) [#/Vol]12.2 10 3/uL4.0-11.0[facility] DublinLymphocytes Auto (Bld) [#/Vol]on 66-98-4486Blwtnboficf (Bld) [#/Vol]2.0 10 3/uL1.2-3.8[facility] DublinLymphocytes/100 WBC Auto (Bld)on 62-00-2549Kwngtobqexp/100 WBC (Bld)16.4 %20.5-60.0[facility] CenterH Auto (RBC) [Entitic mass]on 21-75-9500LGP (RBC) [Entitic mass]29.4 pg26.7-34.0[facility] DublinMCHC Auto (RBC) [Mass/Vol]on 51-48-8873UWUL (RBC) [Mass/Vol]32.1 g/dL29.9-35.2FDelaware County HospitalMCV Auto (RBC) [Entitic vol]on 32-76-4685POJ (RBC) [Entitic vol] 91.7 fL81.0-99.0[facility] DublinMonocytes Auto (Bld) [#/Vol]on 42-70-6114Makodtnfg (Bld) [#/Vol]0.9 10 3/uL0.3-0.8[facility] DublinMonocytes/100 WBC Auto (Bld)on 55-46-4243Wzideldij/100 WBC (Bld)7.7 % 1.7-12.0[facility] DublinNeutrophils Auto (Bld) [#/Vol]on 64-96-5948Jzovlmchfby (Bld) [#/Vol]8.9 10 3/uL1.4-6.5FDelaware County HospitalNeutrophils/100 WBC Auto (Bld)on 74-13-3246Sdsjejljvbo/100 WBC (Bld)72.6 % 43.0-75.0[facility] DublinNo Panel Informationon 02-09-2024 Eosinophils # (Auto)0.3 10 3/uL0.0-0.7FDelaware County HospitalImmature Granulocyte # (Auto)0.04 10 3/uL0.00-0.03[facility] Platelet mean volume Auto (Bld) [Entitic vol]on 98-83-2940Sncbyfnm mean volume (Bld) [Entitic vol]10.9 fL9.5-13.5FDelaware County HospitalPlatelets Auto (Bld) [#/Vol]on 38-57-2888Tqjlwembs (Bld) [#/Vol]546 10 3/wD758-427 [facility] DublinRBC Auto (Bld) [#/Vol]on 20-56-8129XXG (Bld) [#/Vol]4.96 10 6/uL4.20-5.40[facility] Hospitalerum or plasma anion gap determinationon 59-68-1218Hkcep gap [Moles/Vol]14.1 mmol/LFGrand Lake Joint Township District Memorial Hospitalerum or plasma total cholesterol/high density lipoprotein (HDL) cholesterol mass maury 51-58-3730Ohwtyemzifq.total/Cholesterol in HDL [Mass ratio]5.9 {ratio}[facility] DublinComment on above:3.3 - 4.4 LOW RISK4.4 - 7.1 AVERAGE RISK7.1 - 11.0 MODERATE RISK>11.0 HIGH RISKAutomated epithelial cells count in urine sediment (number/area)on 41-95-8806Yoqenaoomy cells Auto (Urine sed) [#/Area]MODERATE #/LPFNONE/RARE [facility] DublinAutomated leukocytes count in urine sediment (number/area)on 81-69-1571AJN Auto (Urine sed) [#/Area]0-2 #/HPF0-2FDelaware County HospitalAutomated urine specific gravity by refractometryon 87-00-1359Qgricijm gravity Refractometry automated (U) [Rel density]1.025 1.005-1.025[facility] DublinBasophils Auto (Bld) [#/Vol]on 12-34-1800Mczxpfcxp (Bld) [#/Vol]0.1 10 3/uL0.0-0.1FDelaware County HospitalBasophils/100 WBC Auto (Bld)on 51-01-3310Eoipxrbuu/100 WBC (Bld)0.4 % 0.2-2.0[facility] DublinBilirubin Auto test strip (U) [Mass/Vol] on 56-77-4560Gsdjdjkaj (U) [Mass/Vol]NegativeNEGATIVESelect Medical [facility] Rehabilitation Hospital - DublinCasts typing in urine sediment by light microscopyon 31-49-5948Rnzdq LM Nom (Urine sed)NONE SEEN #/LPFNONE SEENSelect Medical [facility] Rehabilitation Hospital - DublinColor Auto (U)on 06-77-8273Tbksb (U)YELLOWYELLOWSelect Medical [facility]health Rehabilitation [facility] - [facility] Eosinophils/100 WBC Auto (Bld)on 51-65-6236Vmnvwumdcjz/100 WBC (Bld)1.9 %0.9-7.0 [facility] DublinErythrocyte distribution width Auto (RBC) [Ratio]on 24-92-6569Tjfefgeuqgt distribution width (RBC) [Ratio]13.9 %11.0-15.0 [facility] DublinEstimated glomerular filtration rate (GFR) non- Americanon 71-08-5900HKB/1.73 sq M.predicted among non-blacks MDRD (S/P/Bld) [Vol rate/Area]51 mL/min/{1.73_m2}>=60[facility] DublinGlobulin Calc (S) [Mass/Vol]on 64-31-9907Dohjfssr (S) [Mass/Vol]3.7 g/dL [facility] DublinHematocrit Auto (Bld) [Volume fraction]on 55-90-6351Lpoqnsaoon (Bld) [Volume fraction]48.8 %36.0-48.0[facility] DublinHemoglobin [Mass/volume] in Bloodon 67-75-5204Pkolymfrbg (Bld) [Mass/Vol]15.8 g/dL12.0-16.0[facility] DublinINR in Platelet poor plasma by Coagulation assayon 50-82-3873FRR Coag (PPP) [Relative time]1.05 {INR}[facility] DublinComment on above:DESIRED INR:2.0-3.0 CONDITIONS NOT LISTED BELOW2.5-3.5 FOR PROSTHETIC HEART VALVE REPLACEMENT2.5-3.5 RECURRENT THROMBOSISKetones Auto test strip (U) [Mass/Vol]on 97-30-6731Vorjkwd (U) [Mass/Vol]NegativeNEGATIVESelect Medical [facility] Rehabilitation Hospital - DublinLaboratory - Chemistry and Chemistry - challengeon 68-05-0030Dxvitnj [Mass/Vol]4.0 g/dL 3.4-5.0[facility] DublinALP [Catalytic activity/Vol]80 U/L46-116 [facility] DublinALT [Catalytic activity/Vol]25 U/L14-59 [facility] DublinAST [Catalytic activity/Vol]31 U/L15-37 [facility] DublinBilirubin [Mass/Vol]0.4 mg/dL0.2-1.0[facility] DublinCalcium [Mass/Vol]9.5 mg/dL8.5-10.1FDelaware County HospitalChloride [Moles/Vol]100 mmol/W01-808SjdmhscliSelect Medical [facility] Rehabilitation Hospital - DublinCO2 [Moles/Vol]28.0 mmol/L21.0-32.0[facility] Creatinine [Mass/Vol]1.06 mg/dL0.55-1.02[facility] GFR/1.73 sq M.predicted MDRD (S/P/Bld) [Vol rate/Area]mL/min/{1.73_m2}>=60 [facility] DublinGlucose [Mass/Vol]105 mg/qM71-244FpbbjrugbSelect Medical [facility] Rehabilitation Hospital - DublinPotassium [Moles/Vol]3.7 mmol/L3.5-5.1FDelaware County HospitalProtein [Mass/Vol]7.7 g/dL6.4-8.2FDelaware County Hospital Sodium [Moles/Vol]137 mmol/U681-274YyvjrarenSelect Medical Ohiohealth Rehabilitation Hospital - DublinUrea nitrogen [Mass/Vol]19.0 mg/dL7.0-18.0[facility] DublinUrea nitrogen/Creatinine [Mass ratio]17.9 mg/mgSelect Medical [facility] Laboratory - Hematology and Cell countson 15-09-1405Lknfrlwj granulocytes/100 WBC (Bld)0.2 %0.0-0.5FDelaware County HospitalLaboratory - Microbiology and Antimicrobial susceptibilityOrdered By: Robert Schwartz on 09-54-3790Pkknrnyf identified Cx Nom (U)[facility] DublinLeukocytes [#/volume] corrected for nucleated erythrocytes in Blood by Automated counon 94-87-0798BGW corrected for nucl RBC Auto (Bld) [#/Vol]13.4 10 3/uL4.0-11.0[facility] DublinLymphocytes Auto (Bld) [#/Vol]on 81-18-8794Tmkxslgsguu (Bld) [#/Vol]2.7 10 3/uL1.2-3.8[facility] DublinLymphocytes/100 WBC Auto (Bld)on 32-58-8665Czyqyummvfc/100 WBC (Bld)20.3 %20.5-60.0[facility] CenterH Auto (RBC) [Entitic mass]on 27-53-8919LLX (RBC) [Entitic mass]30.2 pg26.7-34.0[facility] DublinMCHC Auto (RBC) [Mass/Vol]on 33-29-1774OXQU (RBC) [Mass/Vol]32.4 g/dL29.9-35.2FDelaware County HospitalMCV Auto (RBC) [Entitic vol]on 91-58-1200HDS (RBC) [Entitic vol] 93.1 fL81.0-99.0[facility] DublinMonocytes Auto (Bld) [#/Vol]on 06-70-1710Gyzsqqyly (Bld) [#/Vol]1.1 10 3/uL0.3-0.8[facility] DublinMonocytes/100 WBC Auto (Bld)on 16-83-4376Dytxhrfbl/100 WBC (Bld)8.1 % 1.7-12.0[facility] - DublinMucus LM Ql (Urine sed)on 02-08-2024 Mucus Ql (Urine sed)TRACENONE SEENSelect Medical [facility] Rehabilitation Hospital - DublinNeutrophils Auto (Bld) [#/Vol]on 59-20-9010Logrqpvznju (Bld) [#/Vol]9.3 10 3/uL1.4-6.5 [facility] DublinNeutrophils/100 WBC Auto (Bld)on 02-08-2024 Neutrophils/100 WBC (Bld)69.1 %43.0-75.0[facility] DublinNo Panel Informationon 25-05-1792Vfrbs Culture ReflexedCorey HospitalUrine Microscopic ReviewCorey Hospital Eosinophils # (Auto)0.3 10 3/uL0.0-0.7FDelaware County HospitalImmature Granulocyte # (Auto)0.03 10 3/uL0.00-0.03[facility] Platelet mean volume Auto (Bld) [Entitic vol]on 86-98-5765Bzjosiss mean volume (Bld) [Entitic vol]10.5 fL9.5-13.5FDelaware County HospitalPlatelets Auto (Bld) [#/Vol]on 80-44-8692Clvhoildf (Bld) [#/Vol]585 10 3/mM427-478 [facility] DublinProtein Auto test strip (U) [Mass/Vol]on 77-27-2911Vcrlsxc (U) [Mass/Vol]TRACE mg/dLNEG/TRACESelect [facility] - DublinProthrombin time (PT)on 16-60-0845HL Coag (PPP) [Time]11.1 s9.0-11.6 [facility] DublinRBC Auto (Bld) [#/Vol]on 81-35-9889JQP (Bld) [#/Vol]5.24 10 6/uL4.20-5.40[facility] Hospitalerum or plasma albumin/globulin mass ratioon 27-02-8833Nbekzvf/Globulin [Mass ratio]1.1 {ratio} [facility] Hospitalerum or plasma anion gap determinationon 34-50-8793Noihq gap [Moles/Vol]12.7 mmol/LFDelaware County Hospital Specific gravity Auto test strip (U) [Rel density]on 99-20-9635Vpoxbtwq gravity (U) [Rel density]CLEARCLEARFDelaware County HospitalUrine bacteria detection by automated methodon 60-98-0799Hzhraowe Auto Ql (U)MODERATE #/HPFABRAZO CENTRAL CAMPUSE [facility] God HospitalUrine glucose measurement by test strip (mass/volume)on 51-27-7817Ttdqcsq Test strip (U) [Mass/Vol]NegativeNEGACMC Healthcare System GlenbeighUrine hemoglobin detection by automated test stripon 29-43-9891Cdrgfunuko Auto test strip Ql (U)NegativeNEGJ.W. Ruby Memorial HospitalUrine nitrite detection by automated test stripon 93-33-1923Uyqkjvn Auto test strip Ql (U)SMALLNEGJ.W. Ruby Memorial HospitalNitrite Auto test strip Ql (U)NegativeNEGJ.W. Ruby Memorial HospitalUrine sediment crystal identification by light microscopyon 02-08-2024 Crystals LM Nom (Urine sed)None Seen #/HPFMorrow County HospitalUrine sediment leukocyte count by microscopy (number/high power field)on 75-43-7297KHY LM.HPF (Urine sed) [#/Area]10-20 #/HPFABRAZO CENTRAL CAMPUSE [facility] of God HospitalUrobilinogen Auto test strip (U) [Mass/Vol]on 02-08-2024 Urobilinogen Qn (U)0.2 {Toshia'U}/dL0.2-1.0[facility] - DublinpH Auto test strip (U)on 11-44-3177cN (U)5.5 [pH]5.0-9.0[facility] DublinCBC AUTO DIFFon 58-48-6089MVGB #0.0 103/ulNormal0.0-0.1The [facility] HospitalComment on above:Performed By: #### CBC #### [facility] [address] [address] [address] Thierno Vegaphils/100 WBC (Bld)0.4 %Normal0.2-2.0The [facility] Comment on above:Performed By: #### CBC #### [facility] [address] [address] [address] Thierno Soliz #0.5 103/ulNormal0.0-0.7The [facility] HospitalComment on above: Performed By: #### CBC #### [facility] [address] [place] [address] Dr. Thierno Vanessaosinophils/100 WBC (Bld)4.8 %Normal0.9-7.0The [facility] Comment on above:Performed By: #### CBC #### [facility] [address] [place] [address] Dr. Thierno Vanessarythrocyte distribution width (RBC) [Ratio]13.2 %Kgefsi05.0-15.0 The [facility] HospitalComment on above:Performed By: #### CBC #### [facility] [address] [place] [address] Dr. Thierno PhippsHematocrit (Bld) [Volume fraction]48.4 %Critically high36.0-48.0 The [facility] HospitalComment on above:Performed By: #### CBC #### [facility] [address] [place] [address] Dr. Thierno PhippsHemoglobin (Bld) [Mass/Vol]15.8 g/eVWipvls32.0-16.0The [facility] HospitalComment on above:Performed By: #### CBC #### [facility] [address] [place] [address] Dr. Thierno Gamez #0.03 10e3/ulNormal0.00-0.03The [facility] HospitalComment on above:Performed By: #### CBC #### [facility] [address] [place] [address] Dr. Thierno Gamez %0.3 %Normal0.0-0.5The [facility] HospitalComment on above: Performed By: #### CBC #### [facility] [address] [place] [address] Dr. Thierno MercerMPH #2.9 103/ulNormal1.2-3.8The [facility] HospitalComment on above:Performed By: #### CBC #### [facility] [address] [place] [address] Dr. Thierno Mercermphocytes/100 WBC (Bld)30.1 %Hdqixj04.5-60.0The [facility] HospitalComment on above:Performed By: #### CBC #### [facility] [address] [place] [address] Dr. Thierno Green DIFF REQNONormalThe [facility] HospitalComment on above: Performed By: #### CBC #### [facility] [address] [place] [address] Dr. Thierno Martinez (RBC) [Entitic mass]29.6 gaAvxzvj04.7-34.0The [facility] HospitalComment on above:Performed By: #### CBC #### [facility] [address] [place] [address] Dr. Thierno Martinez (RBC) [Mass/Vol]32.6 g/tTEvqejq79.9-35.2The [facility] HospitalComment on above:Performed By: #### CBC #### [facility] [address] [place] [address] Dr. Thierno Martinez (RBC) [Entitic vol]90.8 gOFmswmg24.0-99.0The [facility] HospitalComment on above:Performed By: #### CBC #### [facility] [address] [place] [address] Dr. Thierno Santiago #0.8 103/ulNormal0.3-0.8The [facility] HospitalComment on above:Performed By: #### CBC #### [facility] [address] [place] [address] Dr. Thierno Wrightocytes/100 WBC (Bld)8.2 %Normal1.7-12.0The [facility] Comment on above:Performed By: #### CBC #### [facility] [address] [place] [address] Dr. Thierno Carmen #5.4 103/ulNormal1.4-6.5The [facility] HospitalComment on above:Performed By: #### CBC #### [facility] [address] [place] [address] Dr. Thierno Wareutrophils/100 WBC (Bld)56.2 %Urkutd38.0-75.0The [facility] on above:Performed By: #### CBC #### [facility] [address] [place] [address] Dr. Thierno Christiansonlet mean volume (Bld) [Entitic vol]10.4 fLNormal9.5-13.5The [facility] on above:Performed By: #### CBC #### [facility] [address] [place] [address] Dr. Thierno PhippsPLT626 103/ulCritically kqgz483-877Gea [facility] on above:Performed By: #### CBC #### [facility] [address] [place] [address] Dr. Thierno PhippsRBC5.33 106/ulNormal4.20-5.40The [facility] on above:Performed By: #### CBC #### [facility] [address] [place] [address] Dr. Thierno PhippsWBC9.6 103/ulNormal4.0-11.0The [facility] on above: Performed By: #### CBC #### [facility] [address] [place] [address] Dr. Thierno FerrerID PROFILEon 62-31-4223DYDD-HDL RATIO [facility] on above:Result Comment: 3.3 - 4.4 LOW RISK 4.4 - 7.1 AVERAGE RISK 7.1 - 11.0 MODERATE RISK >11.0 HIGH RISKPerformed By: #### LIPID, CMP #### [facility] [address] [place] [address] Dr. Thierno PhippsCholesterol [Mass/Vol]267 mg/dLCritically high<=200The [facility] on above:Performed By: #### LIPID, CMP #### [facility] [address] [place] [address] Dr. Yilan ChangCholesterol in HDL [Mass/Vol]35 mg/dLCritically lmu21-45Qsj [facility] on above:Performed By: #### LIPID, CMP #### [facility] [address] [place] [address] Dr. Thierno Blissesterol in LDL [Mass/Vol]186.0 mg/dLMedina HospitalCommclaren bay region on above:Performed By: #### LIPID, CMP #### [facility] [address] [place] [address] Dr. Thierno Garcia.total/Cholesterol in HDL [Mass ratio]7.6 {ratio} NormalAvita [facility] on above:Performed By: #### LIPID, CMP #### [facility] [address] [place] [address] Dr. Thierno Carmona NORMAL> or = 60 mg/dl - LOW CARDIOVASCULAR RISK <40 mg/dl - HIGH CARDIOVASCULAR RISKMedina HospitalCommclaren bay region on above:Performed By: #### LIPID, CMP #### [facility] [address] [place] [address] Dr. Thierno Vazquez CALC NORMALSEE BELOWMedina HospitalCommclaren bay region on above:Result Comment: <100 mg/dl OPTIMAL 100 - 129 mg/dl NEAR OR ABOVE OPTIMAL 130 - 159 mg/dl BORDERLINE HIGH 160 - 189 mg/dl HIGH >190 mg/dl VERY HIGH Performed By: #### LIPID, CMP #### [facility] [address] [place] [address] Dr. Thierno PhippsTriglyceride [Mass/Vol]230 mg/dLCritically high<=150The [facility] on above:Performed By: #### LIPID, CMP #### [facility] [address] [place] [address] Dr. Thierno PhippsVLDL CALC46.0 mg/dLMedina HospitalCommclaren bay region on above: Performed By: #### LIPID, CMP #### [facility] [address] [place] [address] Dr. Thierno PhippsMICFREDDYALBUMIN, RAND URon 66-76-7655ySGX<1.3Normal<=30.0The [facility] HospitalComment on above:Performed By: #### MALBR #### [facility] [address] [place] [address] Dr. Thierno Kwon 14(COMP METB)on 54-19-5551Qifdgqn [Mass/Vol]4.0 g/dLNormal 3.4-5.0The [facility] HospitalComment on above:Performed By: #### LIPID, CMP #### [facility] [address] [place] [address] Dr. Thierno PhippsAlbumin/Globulin [Mass ratio]1.0 {ratio}NormalThe [facility] HospitalComment on above:Performed By: #### LIPID, CMP #### [facility] [address] [place] [address] Dr. Thierno Sosa [Catalytic activity/Vol]93 U/TBsxkmw47-788Jjo [facility] Southment on above:Performed By: #### LIPID, CMP #### [facility] [address] [place] [address] Dr. Thierno Chávez [Catalytic activity/Vol]30 U/QThwpsa41-08Xew [facility] Southment on above:Performed By: #### LIPID, CMP #### [facility] [address] [place] [address] Dr. Thierno Samuel gap [Moles/Vol]7.9 mmol/LNormalThe [facility] HospitalComment on above:Performed By: #### LIPID, CMP #### [facility] [address] [place] [address] Dr. Thierno Cisneros [Catalytic activity/Vol]18 U/KDisebp95-80Dat [facility] Southment on above:Performed By: #### LIPID, CMP #### [facility] [address] [place] [address] Dr. Thierno PhippsBilirubin [Mass/Vol]0.4 mg/dLNormal0.2-1.0The [facility] on above:Performed By: #### LIPID, CMP #### [facility] [address] [place] [address] Dr. Thierno PhippsCalcium [Mass/Vol]10.0 mg/dLNormal8.5-10.1The [facility] Comment on above:Performed By: #### LIPID, CMP #### [facility] [address] [address] [address] Thierno PhippsChloride [Moles/Vol]101 mmol/ICxqfjv37-163Puz [facility] Comment on above:Performed By: #### LIPID, CMP #### [facility] [address] [address] [address] Thierno PhippsCO2 [Moles/Vol]32.9 mmol/LCritically high21.0-32.0The [facility] HospitalComment on above:Performed By: #### LIPID, CMP #### [facility] [address] [place] [address] Dr. Thierno PhippsCreatinine [Mass/Vol]0.97 mg/dLNormal0.55-1.02The [facility] HospitalComment on above:Performed By: #### LIPID, CMP #### [facility] [address] [place] [address] Dr. Thierno VanessaGFR-AF TANZANIAN>60Normal>=60The [facility] HospitalComment on above:Performed By: #### LIPID, CMP #### [facility] [address] [place] [address] Dr. Thierno VanessaGFR-NON AF CSKKVKUF78 mL/min/1.11d4Kyewmygwrg low>=60The [facility] HospitalComment on above:Performed By: #### LIPID, CMP #### [facility] [address] [place] [address] Dr. Thierno PhippsGlobulin (S) [Mass/Vol]4.0 g/dLNormalThe [facility] HospitalComment on above:Performed By: #### LIPID, CMP #### [facility] [address] [place] [address] Dr. Thierno PhippsGlucose [Mass/Vol]119 mg/dLCritically iqhs12-974Epe [facility] HospitalComment on above:Performed By: #### LIPID, CMP #### [facility] [address] [address] [address] Thierno PhippsPotassium [Moles/Vol]3.8 mmol/LNormal3.5-5.1The [facility] Comment on above:Performed By: #### LIPID, CMP #### [facility] [address] [address] [address] Thierno PhippsProtein [Mass/Vol]8.0 g/dLNormal6.4-8.2The [facility] Comment on above:Performed By: #### LIPID, CMP #### [facility] [address] [address] [address] Thierno PhippsSodium [Moles/Vol]138 mmol/LNiieuw423-368Rrn [facility] Comment on above:Performed By: #### LIPID, CMP #### [facility] [address] [address] [address] Thierno PhippsUrea nitrogen [Mass/Vol]14.0 mg/dLNormal7.0-18.0The [facility] HospitalComment on above:Performed By: #### LIPID, CMP #### [facility] [address] [address] [address] Thierno Marion nitrogen/Creatinine [Mass ratio]14.4 mg/mgNormalThe [facility] HospitalComment on above:Performed By: #### LIPID, CMP #### [facility] [address] [address] [address] Thierno PhippsXR LSPINE 2_3 VIEWSon 16-92-7014IU LSPINE 2_3 VIEWSEXAMINATION: XR LSPINE 2_3 VIEWS HISTORY: Right side [...] Electronically authenticated by: RAIN HOWE Date: 2022-10-19 21:47NoMercy Health Allen HospitalXR HIP RT 2 3V W PELVISon 33-28-6871BL HIP RT 2 3V W PELVIS EXAM: [...] Electronically authenticated by: CHAITANYA DAVIS Date: 2022-10-18 16:56NoMercy Health Allen HospitalCT LUNG CANCER SCREENINGon 88-07-4704VL LUNG CANCER SCREENING EXAMINATION: CT LUNG CANCER [...] Electronically authenticated by: CHAITANYA CROCKER Date: 2022-05-17 15:19NoMercy Health Allen HospitalXR CHEST 2 Von 16-84-0403TI CHEST 2 VEXAM: XR CHEST 2 V HISTORY: Right flank [...] Electronically authenticated by: WICHO CUETO Date: 2022-04-13 13:32[facility] HospitalXR KUB 1 VIEWon 71-26-3248BJ KUB 1 VIEWEXAMINATION: XR KUB 1 VIEW HISTORY: Right flank [...] Electronically authenticated by: CHAITANYA CROCKER Date: 2022-04-13 17:20[facility] Vital Signs Date TimeVital SignValuePerforming IumgpvczsRxicfxqb18-01-0365 13:22-0400Body iataqk629.56 Ward Aichholz [employer] Work Phone: [facility]10-02-2025 13:22-0400 Body mass index (BMI) [Ratio]23.6 kg/m2Magdalene Ritchiehholz [employer] Work Phone: [facility]10-02-2025 13:22-0400 Body mrqymgxgnna02 [degF]Magdalene Ritchiehholz [employer] Work Phone: [facility]10-02-2025 13:22-0400 Body gklhio20.31 kgMagdalene Aichholz [employer] Work Phone: [facility]10-02-2025 13:22-0400 Diastolic blood hcisncow39 mm[Hg]Magdalene Olivarezholz [employer] Work Phone: [facility]10-02-2025 13:22-0400 Heart rate59 /minLisa Aichholz [employer] Work Phone: [facility]10-02-2025 13:22-0400 Respiratory rate16 /minLisa Juanisholz [employer] Work Phone: [facility]10-02-2025 13:22-0400 SaO2% (BldA) [Mass fraction]95 %Magdalene Chaujenniferholz [employer] Work Phone: [facility]10-02-2025 13:22-0400 Systolic blood olhrsfjn994 mm[Hg]Magdalene Juanisholz [employer] Work Phone: [phone]-[facility]08-05-2025 13:03-0400 Body mass index (BMI) [Ratio]24.03 kg/m2Lisa Chauhholz [employer] Work Phone: [facility] ServicesWiidrqwysd00-41-7442 13:03-0400Body temperature 98.1 [degF]Magdalene Juanisholz [employer] Work Phone: [facility] ServicesLfalruhwla71-82-5880 13:03-0400Body igerzf39.5 kg Magdalene Chauhholz [employer] Work Phone: [facility] ServicesZthvlcuhxg07-92-1150 13:03-0400Diastolic blood vixsqfve43 mm[Hg]Magdalene Chauhholz [employer] Work Phone: [facility] ServicesIdgyalipul33-17-9319 13:03-0400Heart rate56 /min Magdalene Chauhholz [employer] Work Phone: [facility] ServicesElrrmfsrpz24-60-7358 13:03-0400Respiratory rate18 /minLisa Aichholz [employer] Work Phone: [address] [place] [address]Bmdtdkwtca45-77-0900 13:03-2112UzO8% (BldA) [Mass fraction]95 %Magdalene Chauhholz [employer] Work Phone: [facility] ServicesSqpdhflwmv15-62-8011 13:03-0400Systolic blood lavcirza003 mm[Hg]Magdalene Chauhholz [employer] Work Phone: [facility] ServicesNjwbfmzgka46-83-7332 14:10-0400Body mass index (BMI) [Ratio]23.24 kg/m2Lisa Juanisholz [employer] Work Phone: [facility] ServicesItxrpbbcgc43-12-4338 14:10-0400Body temperature 98.1 [degF]Magdalene Juanisholz [employer] Work Phone: [facility] ServicesBgpvmekecv45-37-8086 14:10-0400Body itrrsf50.42 kgLisa Chauhholz [employer] Work Phone: [facility] ServicesXoblreoiqc12-84-7060 14:10-0400Diastolic blood amjmjaio49 mm[Hg]Magdalene Juanisholz [employer] Work Phone: [facility] ServicesThexvnptkh37-29-7103 14:10-0400Heart rate55 /min Magdalene Juanisholz [employer] Work Phone: [facility] ServicesNgwtcflnwp97-47-3001 14:10-0400Respiratory rate20 /minLisa Juanisholz [employer] Work Phone: [facility] ServicesGbfzgcajtf69-82-5385 14:10-1274SjS7% (BldA) [Mass fraction]96 %Magdalene Juanisholz [employer] Work Phone: [facility] ServicesSwlmmxfent92-35-6382 14:10-0400Systolic blood qryiycad228 mm[Hg]Magdalene Juanisholz [employer] Work Phone: [facility] ServicesIazukumdhe47-69-4775 14:10-0400Body mass index (BMI) [Ratio]22.45 kg/m2Lisa Chauhholz [employer] Work Phone: [facility] ServicesUwlnntwmjc96-81-2861 14:10-0400Body temperature 98.1 [degF]Magdalene Juanisholz [employer] Work Phone: [facility] ServicesDzgcfbbshm44-77-3789 14:10-0400Body utpltt71.33 kgLisa Chauhholz [employer] Work Phone: [facility] ServicesGhskmlxedp77-90-6614 14:10-0400Diastolic blood mm[Hg]Magdalene Goodrich [employer] Work Phone: [facility] ServicesUqipjwhqbt11-38-3932 14:10-0400Heart rate62 /min Magdalene Goodrich [employer] Work Phone: [facility] ServicesDlggtoowvn37-49-0961 14:10-0400Respiratory rate20 /minMagdalene Goodrich [employer] Work Phone: [facility] ServicesRvlggifvzd69-20-4371 14:10-8063EoU3% (BldA) [Mass fraction]95 %Magdalene Goodrich [employer] Work Phone: [facility] ServicesCglhifdzli57-22-3570 14:10-0400Systolic blood jnywngbj320 mm[Hg]Magdalene Goodrich [employer] Work Phone: [facility] ServicesBhkeefstzr78-50-3214 13:52-0500Body idofih566.6 cmAndrew Church [employer] Work Phone: [facility] ServicesAtbfkikfvu15-30-0472 13:52-0500Body mass index (BMI) [Ratio]23.69 kg/g2Eyaisbst Church [employer] Work Phone: [facility] ServicesTrwtkoxfek49-67-9626 13:52-0500Body temperature 98.29 [degF]Andrew Church [employer] Work Phone: [facility] ServicesSsqnfoziam72-47-8685 13:52-0500Body brjbou39.6 kg Andrew Church [employer] Work Phone: [facility] ServicesTrmfyibzaw64-77-1272 13:52-0500Diastolic blood tokxnkwn60 mm[Hg]Andrew Church [employer] Work Phone: [facility] ServicesVkiiygagut18-03-0685 13:52-0500Heart rate74 /min Andrew Church [employer] Work Phone: [address] [address]Mojrwtnkom73-70-4232 13:52-0500Respiratory rate16 /minBrpj Church [employer] Work Phone: [facility] ServicesOjzbkbrxfj05-61-9793 13:52-6694XaQ3% (BldA) [Mass fraction]94 %Andrew Church [employer] Work Phone: [facility] ServicesSdyqlcrjol84-80-6876 13:52-0500Systolic blood huxjbjlq191 mm[Hg]Andrew Church [employer] Work Phone: [facility] ServicesHflriynxwd56-97-3612 14:23-0500Body zazytp293.6 cmBrreginaany Church [employer] Work Phone: [facility] ServicesUlfhbbggfa18-18-2510 14:23-0500Body mass index (BMI) [Ratio]24.2 kg/k9Wiylkymb Church [employer] Work Phone: [facility] ServicesKsxgkctiah04-94-8896 14:23-0500Body temperature 96.6 [degF]Andrew Church [employer] Work Phone: [facility] ServicesVeqkokanfy44-85-6594 14:23-0500Body .96 kgBrpj Church [employer] Work Phone: [facility] ServicesXammdsuvle18-43-8793 14:23-0500Diastolic blood qydzehmi94 mm[Hg]Andrew Church [employer] Work Phone: [facility] ServicesIjaapwkstt95-95-1304 14:23-0500Heart rate77 /min Andrew Church [employer] Work Phone: [facility] ServicesEdsbzvzdmb86-27-6952 14:23-0500Respiratory rate20 /minBrpj Church [employer] Work Phone: [place] [address]Taxyryovqi85-02-4778 14:23-0876VkI8% (BldA) [Mass fraction]94 %Andrew Church [employer] Work Phone: [address] [address]Dmhvsorkwz97-10-3384 14:23-0500Systolic blood cxqhokxh635 mm[Hg]Andrew Church [employer] Work Phone: [facility] ServicesJqxbwrfxnq00-50-1568 16:15-0400Body lhxdla318.6 cmBrpj Church [employer] Work Phone: [facility] ServicesQauuubgonb71-18-5534 16:15-0400Body mass index (BMI) [Ratio]24.37 kg/z1Ifkcyglp Church [employer] Work Phone: [facility] ServicesBrvodlsjcg77-29-5382 16:15-0400Body temperature 97.7 [degF]Andrew Church [employer] Work Phone: [facility] ServicesSscdebpfrl26-11-6264 16:15-0400Body bqxepb03.41 kgBrpj Church [employer] Work Phone: [facility] ServicesWdtfnwbxcw62-76-2260 16:15-0400Diastolic blood cfgqpsob98 mm[Hg]Andrew Church [employer] Work Phone: [facility] ServicesCthofcyetz01-39-8659 16:15-0400Heart rate63 /min Andrew Church [employer] Work Phone: [facility] ServicesComment on above:97% N667-12-1840 16:15-0400Systolic blood mm[Hg]Andrew Church [employer] Work Phone: [facility] ServicesKehiglmwfb77-06-8830 11:27-0400Body .02 cm[facility] 11:27-0400Body mass index (BMI) [Ratio]22.4 kg/b6CjvyrhqhpSelect Medical [facility]04-09-2024 11:27-0400Body lioruo37.6 kgSelect [facility]04-09-2024 11:27-0400Diastolic blood xybaaefq70 mm[Hg][facility]04-09-2024 11:27-0400 Heart rate60 /minSelect [facility]04-09-2024 11:27-0400Systolic blood fbtwruhk84 mm[Hg][facility]10-09-2023 15:00-0400 Body qtxyur979.02 cmRobert Schwartz Other [employer] Other 10-09-2023 15:00-0400Body mass index (BMI) [Ratio] 24.37 kg/e2Fknsss Schwartz Other [facility] Other 10-09-2023 15:00-0400Body sypukl71.42 kgRobert Efren Other [facility] Other 10-09-2023 15:00-0400Diastolic blood hkiuubyp80 mm[Hg] Robert Schwartz Other [facility] Other 10-09-2023 15:00-0400Systolic blood dnqdqisv567 mm[Hg] Robert Schwartz Other [facility] Other 07-11-2023 14:00-0400Body jhulhi094.02 cmRobert Efren Other [facility] Other 07-11-2023 14:00-0400Body mass index (BMI) [Ratio]24.8 kg/g7Oipjvc Efren Other [facility] Other 07-11-2023 14:00-0400Body jicmpt75.5 kgGinareshma Efren Other [facility] Other 07-11-2023 14:00-0400Diastolic blood fmyddubp33 mm[Hg] Robert Schwartz Other [facility] Other 07-11-2023 14:00-0400Systolic blood mpwbyzjv682 mm[Hg] Robert Schwartz Other [facility] Other 04-04-2023 16:00-0400Body abcvoz084.02 cmRobert Schwartz Other [facility] Other 04-04-2023 16:00-0400Body mass index (BMI) [Ratio] 25.33 kg/n8AvclywRobert Schwartz Other [facility] Other 04-04-2023 16:00-0400Body siracb32.86 kgRobert Schwartz Other [employer] Other 04-04-2023 16:00-0400Diastolic blood kuvpyulj43 mm[Hg] Robert Efren Other [facility] Other 04-04-2023 16:00-5402CbN2% (BldA) [Mass fraction]97 % Robert Schwartz Other [facility] Other 04-04-2023 16:00-0400Systolic blood hoxdmdtr741 mm[Hg] Robert Schwartz Other [facility] Other Encounters Encounter DateEncounter TypeCare ProviderFacilityStart: 08-07-2025 End: 03-07-9062Vljlgypf ReferredMagdalene Goodrich NP-C-[facility] Work Phone: Start: 08-07-2025 End: 88-48-7105ljbdmddpkcJhob J Aichholz [employer]ER-C Work Phone: [facility] Work Phone: Start: 08-07-2025 End: 94-72-1925Nttjzzr encounter procedureMagdalene Goodrich NP-C-[facility] [place] Work Phone: Start: 55-88-8499Omkfqlx encounter statusLisa Joleen MARTINEZ-C Work Phone: [facility]: 07-06-2025 End: 86-24-8077VpdokxKorv Aichholz [employer] PICKER Work Phone: noMS CWM FMComment on above:Convulsions, unspecified convulsion type (HCC)Start: 06-10-2025 End: 39-80-5891Xdasfn flowsheetLisa Aichholz [employer] P[employer]ER Work Phone: NOTY CWM FMStart: 06-10-2025 End: 66-64-3304Auzdfv flowsheetLisa Aichholz [employer] P[employer]ER Work Phone: NOKF CWM FMStart: 06-10-2025 End: 80-84-9985pojluehwznTJBE AICHHOLZNot AvailableStart: 06-10-2025 End: 34-99-3009Vksgnd outpatient visit 25 minutesLisa Aichdonz PARTS PICKER Work Phone: [facility] CWM FMComment on above:Essential (primary) hypertension (Primary Dx); Other chronic pain; Fibromyalgia, primary; Type 2 diabetes mellitus with stage 3a chronic kidney disease, without long-term current use of insulin (HCC); Nicotine dependence, cigarettes, uncomplicated; FUENTES (generalized anxiety disorder) ; Restless leg syndrome; Lumbar back painStart: 05-30-2025 End: 98-83-0398Ozyyngxwm Result EncounterGeneric External Data ProviderNOMS External Department UnsolicitedStart: 05-30-2025 End: 63-05-9907Tgmmcmcgr Result EncounterGeneric External Data ProviderNOMS External Department UnsolicitedStart: 05-17-2025 End: 60-30-8035VvwrjnBccr Aichholz [employer] P[employer]ER Work Phone: [facility] CWM FMComment on above:Restless leg syndrome Start: 05-12-2025 End: 23-85-7448KssipzBoxz Aichholz [employer] PICKER Work Phone: [facility] CWM FMComment on above:Lumbar back pain; FUENTES (generalized anxiety disorder)Start: 04-10-2025 End: 18-49-1890Mnfcof outpatient visit 25 minutesLisa Aichholz [employer]S PICKER Work Phone: [facility] CWM FMComment on above:Type 2 diabetes mellitus with stage 3a chronic kidney disease, without long-term current use of insulin (HCC) ([facility]) (Primary Dx); Essential (primary) hypertension ([facility]); FUENTES (generalized anxiety disorder) ([facility]); Lumbar back pain; Current episode of major depressive disorder without prior episode, unspecified depression episode severity ([facility]); Nicotine dependence, cigarettes, uncomplicated; UTI symptoms; Convulsions, unspecified convulsion type ([facility])Start: 04-10-2025 End: 46-31-7132nrbnyjzavoCATV AICHHOLZNot AvailableStart: 03-13-2025 End: 11-10-4817NrlzfdWdjz Aichholz [employer] P[employer]ER Work Phone: [facility] CWM FMComment on above:Lumbar back painStart: 03-11-2025 End: 06-43-8576Jtckyqqyi Result EncounterGeneric External Data ProviderNOMS External Department UnsolicitedStart: 03-11-2025 End: 63-53-2788Ocehlnsdt Result EncounterGeneric External Data ProviderNOMS External Department UnsolicitedStart: 03-06-2025 End: 47-14-1685WlrqzzEeqg Naderer MD Work Phone: [facility] CWM FMComment on above:Cerebrovascular accident (CVA), unspecified mechanism ([facility])Start: 02-25-2025 End: 34-86-8566Hpuqto flowsheetMagdalene Goodrich [employer] PICKER Work Phone: [facility] CWM FMStart: 02-25-2025 End: 03-50-3757Uwqirg flowsheetMagdalene Goodrich [employer] P[employer]ER Work Phone: [facility] CWM FMStart: 02-25-2025 End: 99-50-8790Ivlsse outpatient visit 25 minutesMagdalene Goodrich [employer] PICKER Work Phone: [facility] CWM FMComment on above:Essential (primary) hypertension ([facility]) (Primary Dx); Type 2 diabetes mellitus with diabetic chronic kidney disease ([facility]/HCC); Essential (hemorrhagic) thrombocythemia; Seizure ([facility]); Restless leg syndrome; Age-related osteoporosis without current pathological fracture ([facility]); Fibromyalgia, primary; Anxiety; Current episode of major depressive disorder without prior episode, unspecified depression episode severity ([facility]); FUENTES (generalized anxiety disorder) ([facility]); Mixed hyperlipidemia ([facility]); Nicotine dependence, cigarettes, uncomplicatedStart: 02-25-2025 End: 11-59-3987swcssfjmcaANJU CHAUHHOLTHADot AvailableStart: 02-24-2025 End: 21-17-1609HrktyaVcef Aichholz [employer] PICKER Work Phone: [facility] CWM FMComment on above:FUENTES (generalized anxiety disorder) ([facility]); Restless leg syndromeStart: 02-19-2025 End: 74-57-7999HmehojIhxf Aichholz [employer] PICKER Work Phone: [facility] CWM FMComment on above:Restless leg syndrome Start: 02-12-2025 End: 73-38-3960DksvoeBqsz Aichholz [employer] PICKER Work Phone: [facility] CWM FMComment on above:Lumbar back painStart: 01-13-2025 End: 23-15-0830EliwwqWvpq Naderer MD Work Phone: [facility] CWM FMComment on above:Hyperlipidemia, unspecified hyperlipidemia type ([facility]); Lumbar back painStart: 12-25-2024 End: 66-28-5487Qbkgtt flowsheetBrittany Church [employer] PICKER Work Phone: [facility] CWM FMStart: 12-25-2024 End: 50-53-5720Owfvcj flowsheetBrittany Church [employer]ER Work Phone: [facility] CWM FMStart: 12-25-2024 End: 41-43-4648Mednbg outpatient visit 15 minutesBrittmandy BarlowChurch PARTS PICKER Work Phone: [facility] CWM FMComment on above:FUENTES (generalized anxiety disorder) (CMS/HCC) (Primary Dx); Convulsions, unspecified convulsion type (CMS/HCC); Essential (primary) hypertension (CMS/HCC); Mixed hyperlipidemia (CMS/HCC); PrediabetesStart: 12-25-2024 End: 49-14-3689zurfepwfwpQBZFFWUF FITZPATRICKNot AvailableStart: 12-20-2024 End: 66-36-1674Bttgcicvz Result EncounterBrittany Church [employer] PICKER Work Phone: noms External Department UnsolicitedStart: 12-20-2024 End: 83-26-3364Lxxxshvgq Result EncounterBrittany Church [employer] PICKER Work Phone: noms External Department UnsolicitedStart: 12-17-2024 End: 72-89-5990SmnsqnMvvmAdriana MACK CWM FMComment on above:Lumbar back pain Start: 11-13-2024 End: 96-43-0244LjvanuCqtyqrbz Church [employer] PICKER Work Phone: noms CWM FMComment on above:Lumbar back pain; Cerebrovascular accident (CVA), unspecified mechanism (CMS/HCC)Start: 10-14-2024 End: 66-93-5255WztyqeLvjcAdriana MACK CWM FMComment on above:Lumbar back pain Start: 09-23-2024 End: 18-56-4290Zdydep outpatient visit 15 minutesBrittany Church [employer] PICKER Work Phone: noms CWM FMComment on above:Prediabetes (Primary Dx); Essential (primary) hypertension (CMS/HCC); Mixed hyperlipidemia (CMS/HCC)Start: 09-23-2024 End: 84-78-4379cbkbylfqcxVAFDFFXB FITZPATRICKNot AvailableStart: 09-23-2024 End: 99-84-1363Zkemoq flowsheetBrittany Church [employer]ER Work Phone: noms CWM FMStart: 09-23-2024 End: 58-65-4883Tuxgch flowsheetBrittany Church [employer] PICKER Work Phone: noms CWM FMStart: 92-12-0002xrupltcbydRSTEVZZ W [facility]ulatory PPGStart: 09-11-2024 End: 37-94-4172YzwbhuNvtk Howard MANOMS CWM FMComment on above:Lumbar back pain Start: 09-09-2024 End: 99-79-2919Enjnqz Yadielmandy Church [employer]ER Work Phone: noms CWM FMComment on above:Type 2 diabetes mellitus with chronic kidney disease, without long-term current use of insulin, unsp ecified CKD stage (CMS/HCC) (Primary Dx)Start: 09-03-2024 End: 38-26-5067Gmtmizpby Result EncounterAndrew Barlowzpatrick PART[employer] PICKER Work Phone: noms External Department UnsolicitedStart: 09-03-2024 End: 34-31-8378Mjxlqijfb Result EncounterAndrew Barlowzpatrick [employer] PICKER Work Phone: noms External Department UnsolicitedStart: 09-03-2024 End: 20-29-5888EglzigBptpzqrr Fitzpatrick [employer] PICKER Work Phone: noms CWM FMComment on above:Restless leg syndrome Start: 08-13-2024 End: 06-62-2337Jrctdxpst Result EncounterGeneric External Data ProviderNOMS External Department UnsolicitedStart: 08-13-2024 End: 34-14-9578Gxscllggj Result EncounterGeneric External Data ProviderNOMS External Department UnsolicitedStart: 08-06-2024 End: 06-75-4312CdvlhcRncbninr Church [employer]ER Work Phone: noms CWM FMComment on above:Lumbar back pain (Primary Dx); Hyperlipidemia, unspecified hyperlipidemia type (CMS/HCC); Essential (primary) hypertension (CMS/HCC); Restless leg syndrome; Cerebrovascular accident (CVA), unspecified mechanism (CMS/HCC)Start: 07-24-2024 End: 26-54-5881Asjapwe preventive medicine new patient 63yrs&>Andrew Barlowzpatrick [employer]S PICKER Work Phone: noms CWM FMComment on above:Essential (primary) hypertension (CMS/HCC) (Primary Dx); Mixed hyperlipidemia (CMS/HCC); Nicotine dependence, cigarettes, uncomplicated; Cerebrovascular accident (CVA), unspecified mechanism (CMS/HCC)Start: 07-24-2024 End: 82-87-1000yadecfcdzqEHNKOVFL FITNICKTRICKNot AvailableStart: 07-24-2024 End: 90-21-3466Reossp flowsheetKirkreginamandy BarlowChurch [employer] PICKER Work Phone: noms CWM FMStart: 07-24-2024 End: 10-36-7547Hoelvt flowsheetAndrew Haleypatrick [employer] PICKER Work Phone: noms CWM FMStart: 01-39-2992Uplnnji encounter status Andrew Barlowzpatrick [employer]S PICKER Work Phone: noms HealthcareStart: 97-98-6212Mmacmrk encounter statusAndrew Church [employer] P[employer]ER Work Phone: [facility] Work Phone: Start: 04-02-2024 End: 56-11-4340peftuiawoqVUNKOhio State Health Systemtart: 85-93-7266xcocpapctnPpjqHunter HooperFacility:FTKINDRED HOSPITALtart: 03-25-2024 End: 88-34-5980Jpnmhtdwo encounterPaige [facility] Start: 02-13-2024 End: 04-74-3857vuphhjtqvcQsrgxhhnvWilson [address] [facility] Work Phone: Start: 02-13-2024 End: 48-74-3801Tnyavoj encounter procedureLito Physician Group-[facility] Work Phone: Start: 18-62-5778pyqmxacdtdQPUPJK A DWYERUniversity Hospitals Lake West Medical Centertart: 02-12-2024 End: 34-23-1227Ymteidbal encounterPaige Philip [facility] Start: 12-12-0726fposqaycvhHUUTDXBTustin Rehabilitation Hospital Ambulatory PPG Start: 30-25-5314Dkw-patient / Non-visitFirelands Physician Group-[facility] Work Phone: Start: 02-08-2024 End: 35-56-4432Iyoewobmy department patient visitGreat [facility] Ambulatory PPGStart: 74-02-2821Dsc-patient / Non-visitFirelands Physician Group-[facility] Work Phone: Start: 12-67-0228Qzb-patient / Non-visitFirelands Physician Group-[facility] Work Phone: Start: 47-82-4316Lmm-patient / Non-visitFirelands Physician Group-[facility] Work Phone: Start: 10-24-2023 End: 62-60-8616vhlckzxnfzJhqqgh Efren Other [employer] Other Start: 29-29-0196Jcokywbqd encounterMarcia Maniilaq Health Centertart: 09-22-2023 End: 96-99-5969clkikamdguAokpjy Schwartz Other [employer] Other Start: 57-83-9483Xsxjviepu encounterMarcia [facility] ClinicStart: 08-23-2023 End: 93-10-1731yjrnpjadeqHobdft Schwartz Other [employer] Other Start: 44-27-2277Szslcmjom encounterMarcia Maniilaq Health Centertart: 08-14-2023 End: 32-81-2554umddhkogpbNcavsn Schwartz Other [employer] Other Start: 42-31-3039Ftcxgg outpatient visit 15 minutes Robert BraunFirelands Regional Medical Center South Campustart: 27-73-8724Qoyzfphhn encounterMarcia Jigna [facility] ClinicStart: 07-24-2023 End: 49-88-1304rdknrhronvSpmqiz Schwartz Other [employer] Other Start: 70-86-0101Okouhvgyd encounterMarcia Jigna [facility] ClinicStart: 06-23-2023 End: 18-06-6607dqjgxnlgqzGugwze Schwartz Other [employer] Other Start: 57-10-5865Ispzkmiqk encounterMarcia Jigna [facility] ClinicStart: 06-12-2023 End: 28-45-0640bwwaejrugbNidckg Schwartz Other [employer] Other Start: 78-45-5588Ixxloaejx encounterMarcia Jigna [facility] ClinicStart: 05-16-2023 End: 44-00-1263jndywtmpklOkoobb Schwartz Other [employer] Other Start: 43-27-3630Dzpmzp outpatient visit 15 minutes Robert [facility] ClinicStart: 02-24-2023 End: 84-38-8123wnpwjxgntwZsvjml Schwartz Other [employer] Other Start: 13-40-3355Uvecvkipe encounterMarcia Jigna [facility] ClinicStart: 02-13-2023 End: 49-17-8023dgxewbpkcwPusilboq Jean Claude Other [employer] Other Start: 90-82-3621Qstznfocm encounterMarcia Jigna [facility] ClinicStart: 02-09-2023 End: 95-66-7904qfwkoxvuolDK ROBERT SCHWARTZFacility:C3Uvxwi: 02-07-2023 End: 40-87-3499sedkaglbbsGeassb Schwartz Other [facility]aud[facility] [employer] Other Start: 89-44-4007Itrwco outpatient visit 25 minutes Robert Benito [facility] ClinicStart: 10-18-2022 End: 36-19-0191qofchkcagfYP ROBERT Rodriguez EFRENFacility:T0Gkpxc: 65-00-9754Kec- procedure evaluation Eugene Schwartz Other Ak[facility] Networksaudrain medical center [employer] Other Start: 05-17-2022 End: 49-03-5504zyjwbudtejOD MARCIA E BRAUNFacility:A7Rbgfl: 04-13-2022 End: 60-18-4318seoliyhdngEZCandy SCHWARTZFacility:H1 Procedures DateProcedureProcedure DetailPerforming ClinicianStart: 06-67-7750NKM CBC WITH AUTO DIFFGeneric External Data ProviderStart: 27-70-5998Jkyta dip stick/tablet rgnt non-auto w/o micrscpLisa Joleen [employer]ER Work Phone: Start: 98-13-7454Wiahjubbuk glycosylated r8eIpui Joleen [employer]ER Work Phone: Start: 31-55-7399QFH CBC WITH AUTO DIFFGeneric External Data ProviderStart: 37-83-7994XEK CBC WITH AUTO DIFFBrittany Church [employer] PICKER Work Phone: Start: 17-82-3349XGQ CBC WITH AUTO DIFFBrittany Church [employer] PICKER Work Phone: Start: 34-19-3192OHO CBC WITH AUTO DIFFGeneric External Data ProviderStart: 07-24-2024 End: 02-25-2025H/O: artificial jointPresence of right artificial shoulder joint Andrew Church [employer] Work Phone: Start: 32-82-4953Ywojybql identified in Urine by CultureStart: 16-02-6911Kcukqbcgd for malignant neoplasm of cervixRobert Schwartz Other Plan of Treatment DateCare ActivityDetailAuthorStart: 64-67-0403Temktquz screeningDiabetes: Retinopathy ScreeningHIGHLAND RIDGE [facility]PITAL HealthcareStart: 57-69-5035Fgiozhrq screeningDiabetes: Retinopathy ScreeningHIGHLAND RIDGE [facility]OSPITAL HealthcareStart: 95-56-0036Ldxzy screening for proteinDiabetes: Urine Protein ScreeningHIGHLAND RIDGE HOSPITAL HealthcareStart: 08-07-2025 [facility]: 09-18-2025Medicare Annual Wellness (AWV) Medicare Annual Wellness (AWV)[facility] HealthcareStart: 07-16-2025 End: 39-76-6387Lqersco encounter procedureNOINTEGRIS B[facility] FMStart: 72-92-7547Yzwqhzwnip A1c measurementDiabetes: Hemoglobin A3SXKTP HealthcareStart: 07-07-2025 Influenza vaccinationInfluenza Vaccine (#1)[facility] HealthcareStart: 06-10-2025 End: 84-02-8676Umcaosk encounter brnbwiguv51/05/2025 1:00 PM EDT Office Visit [facility] [address] [place] [address] Magdalene Goodrich, PARTS PICKER [address] [place] [address] [facility] FMStart: 04-10-2025 End: 99-71-0105Xlfkveh encounter eefuriqgj73/05/2025 2:00 PM EDT Office Visit [facility] [address] [place] [address] Magdalene Goodrich, PARTS PICKER [address] [place] [address] [facility] FMStart: 02-25-2025 End: 12-70-3253Tftbcqt encounter procedureNOINTEGRIS BASS [facility]AP[facility] FMComment on above:Seizure (CMS/HCC) (Primary Dx); Type 2 diabetes mellitus with diabetic chronic kidney disease (CMS/HCC); Essential (hemorrhagic) thrombocythemia; Restless leg syndrome; Essential (primary) hypertension (CMS/HCC); Age-related osteoporosis without current pathological fracture ([facility]); Fibromyalgia, primary; Anxiety; Current episode of major depressive disorder without prior episode, unspecified depression episode severity ([facility]); FUENTES (generalized anxiety disorder) ([facility]); Mixed hyperlipidemia ([facility]); Nicotine dependence, cigarettes, uncomplicatedStart: 12-25-2024 End: 53-38-4351Fsdtyhp encounter /19/2025 2:00 PM EST Office Visit [facility] [address] [place] [address] Andrew Church, MICHELLE [address] [place] [address] [facility] FMComment on above:ArrivedStart: 12-24-2024 End: 52-51-1354ULS W Auto Differential panel - BloodCBC and differential Lab Routine Prediabetes Expected: 12/24/2024 (Approximate), Expires: 09/23/2025[facility] HealthcareComment on above:Expected: 12/24/2024 (Approximate), Expires: 09/23/2025Start: 12-24-2024 End: 24-96-1004Sdonqmqilymdr metabolic 2000 panel - Serum or PlasmaComprehensive metabolic panel Lab Routine Prediabetes Expected: 12/24/2024 (Approximate), Expires: 09/23/2025[facility] HealthcareComment on above:Expected: 12/24/2024 (Approximate), Expires: 09/23/2025Start: 12-24-2024 End: 46-36-1622Blbqbfhwga A1c/Hemoglobin.total in BloodHemoglobin A1c Lab Routine Prediabetes Expected: 12/24/2024 (Approximate), Expires: 09/23/2025[facility] HealthcareComment on above:Expected: 12/24/2024 (Approximate), Expires: 09/23/2025Start: 12-23-2024 End: 76-49-4029Upuzjac encounter znolezbhw69/17/2025 2:00 PM EST Office Visit [facility] [address] [facility] [place] [address] Andrew Church, PARTS PICKER [address] [place] [address] [facility] CWM FMStart: 09-23-2024 End: 61-49-9984Xguyzeg encounter procedureNOMS CWM FMComment on above:Arrived Start: 08-20-2024 End: 45-13-4087Qiehuqa encounter dmguyjrmk53/15/2024 2:40 PM EDT Office Visit [facility] [address] [place] [address] Ese Brewer NP [address] [place] [address] [facility] ROUTEStart: 07-24-2024 End: 00-93-8305Kfkvedy encounter ntnmqernq67/18/2024 4:30 PM EDT Office Visit [facility] FM [address] [place] [address] Andrew Church, PARTS PICKER [address] [place] [address] ArrivedNOMS CWM FMComment on above:ArrivedStart: 07-24-2024 End: 61-20-8116NJW W Auto Differential panel - BloodCBC and differential Lab Routine Essential (primary) hypertension (CMS/HCC) Mixed hyperlipidemia (CM S/HCC) Expected: 07/24/2024 (Approximate), Expires: 07/23/2025[facility] Comment on above:Expected: 07/24/2024 (Approximate), Expires: 07/23/2025Start: 07-24-2024 End: 59-50-0919Bsralxtxmjyax metabolic 2000 panel - Serum or PlasmaComprehensive metabolic panel Lab Routine Essential (primary) hypertension (CMS/HCC) Mixed hyperlipidemia (CMS/HCC) Expected: 07/24/2024 (Approximate), Expires: 07/23/2025 [facility] HealthcareComment on above:Expected: 07/24/2024 (Approximate), Expires: 07/23/2025Start: 07-24-2024 End: 72-06-7164Fujgeomjza A1c/Hemoglobin.total in BloodHemoglobin A1c Lab Routine Essential (primary) hypertension (CMS/HCC) Mixed hyperlipidemia (CMS/HCC) Cerebrovascular accident (CVA), unspecified mechanism (CMS/HCC) Expected: 07/24/2024 (Approximate), Expires: 07/23/2025[facility] HealthcareComment on above:Expected: 07/24/2024 (Approximate), Expires: 07/23/2025Start: 07-24-2024 End: 92-84-5228Npiqh 1996 panel - Serum or PlasmaLipid panel Lab Routine Mixed hyperlipidemia (CMS/HCC) Expected: 07/24/2024 (Approximate), Expires:07/23/2025 [facility] HealthcareComment on above:Expected: 07/24/2024 (Approximate), Expires: 07/23/2025Start: 07-24-2024 End: 32-33-6718PEZ W/REFLEX TO FT4TSH W/REFLEX TO FT4 Lab Routine Essential (primary) hypertension (CMS/HCC) Expected: 07/24/2024 (Approximate), Expires: 07/23/2025[facility] Work Phone: Comment on above:Expected: 07/24/2024 (Approximate), Expires: 07/23/2025Start: 97-84-0405Fqgjbptxb vaccinationHIGHLAND RIDGE HOSPITAL HealthcareStart: 89-76-3162Yddlged [facility] Work Phone: Start: 25-96-9450Oyemj BMI ScreeningAdult BMI ScreeningProCleveland Clinic Akron General SystemStart: 23-06-0176Bxemrztpntaa Vaccine: 65+ Years (2 of 2 - PCV)Pneumococcal Vaccine: 65+ Years (2 of 2 - PCV)[facility] Start: 21-07-0765Cpfm Risk ScreeningFall Risk ScreeningKettering Health [facility] System Start: 40-24-2680Bigpjrymemqqra of varicella zoster vaccineZoster (Shingles) Vaccine (1 of 2)[facility] Yu[facility] SystemStart: 17-63-6736KZpK,Tdap and Td Vaccines (1 - Tdap)DTaP,Tdap and Td Vaccines (1 - Tdap)[facility] Start: 15-29-2731Sfkbo screening for proteinDiabetes: Urine Protein Screening [facility] HealthcareStart: 37-19-2517Zebxfzzgzk ScreeningDepression Screening [facility] Centertart: 06-60-5584Tbjxwis ScreeningTobacco Screening [facility] Centertart: 53-53-6600Fpzsgwlc screeningDiabetes: Retinopathy [facility] HealthcareStart: 45-53-9804Shehfjegne A1c measurementDiabetes: Hemoglobin A7JUZNN HealthcareStart: 1950Medicare Annual Wellness Visit Medicare Annual Wellness VisitUK HealthcareDrugs identified in Urine [facility] DublinMicroalbumin/Creatinine panel in random Urine Microalbumin / creatinine urine ratio Lab Routine Prediabetes Ordered: 09/23/2024[facility] Work Phone: Comment on above:Ordered: 4Patient referral [facility] Work Phone: us Lower extremity vein - leftSelect Medical [facility] Hospital - DublinXR Hip - left 2 ViewsSelect Medical [facility] Immunizations Immunization DateImmunizationNotesCare BmbslbriLkgmfpxh28-28-0371zztxpehlh, seasonal, injectableBrittany Church PARTS PICKER Work Phone: [facility] ServicesCogzswkpih40-40-9956muopfkfuz virus vaccine, unspecified formulationLisa Aichholz PARTS PICKER Work Phone: [facility] ServicesRsfxvgmcna72-68-9539Dbemuhdvm, Seasonal, Quadrivalent, AdjuvantedLisa Aichholz PARTS PICKER Work Phone: [facility] ServicesAwcnsttchw64-88-1225lwxcdhxfs virus vaccine, unspecified formulationDeWitt Hospital10-05-2022influenza virus vaccine, split virus (incl. purified surface antigen)Robert Schwartz Other [facility] [employer] Other [id number] virus vaccine, unspecified formulationSelect Medical [facility] Dublin10-05-2022Influenza, High-dose Seasonal, Quadrivalent, Preservative FreeLisa Aichholz PARTS PICKER Work Phone: [facility] ServicesNrxwmaiisc87-26-5585Sozczwdxp, High-dose Seasonal, Quadrivalent, Preservative FreeLisa Aichholz PARTS PICKER Work Phone: [phone] [place], [place] [address]Lkhxhzwnqo46-41-3807abmwcxoqg, high dose seasonal, preservative-freeLisa Aichholz PARTS PICKER Work Phone: [phone] [place], [place] [address]Vfiomafofc26-66-3589anaoskn vaccine or immune globulinLisa Aichholz PARTS PICKER Work Phone: [facility] ServicesDduchrljym28-92-5614Cdnvowmp trivalent influenza vaccine, adjuvanted, preservative freeLisa Aichholz PARTS PICKER Work Phone: [facility] ServicesAxkmcutare68-54-0162xvvqodmfd, high dose seasonal, preservative-freeLisa Aichholz PARTS PICKER Work Phone: [phone] [place], [place] [address]Izaymgbssg48-49-7079natzvwvmibeq polysaccharide vaccine, 23 valentLisa Aichholz PARTS PICKER Work Phone: [facility] ServicesHpupfmwcvr02-45-6553fqjpq pksbcqqjm-N1C7-43, preservative-free, injectableLisa Aichholz PARTS PICKER Work Phone: [facility] ServicesFpcoaikezx04-48-0280kpmofmrcyigj polysaccharide vaccine, 23 valentLisa Aichholz PARTS PICKER Work Phone: [facility] Payers DatePayer CategoryPayerPolicy [id number] (Managed Care)[employer] [id number] 2020Medicare [id number] 2018Medicaid [id number] [id number] [id number] [id number] 2.840.1.376468.3.57[id number] 2.840.1.386997.3.57[id number] 2.840.1.962354.3.57[id number] 2.840.1.807567.3.57[id number] 2.840.1.611358.3.57[id number] 2.16840.1.145866.3.57[id number] 2.16840.1.918006.3.57[id number] 2.16840.1.275462.3.57[id number] 2.16840.1.214086.3.57[id number] 2.16840.1.801391.3.57[id number] 2.16.840.1.574352.3.57[id number] 2.16.840.1.741554.3.57[id number] 2.16.840.1.608998.3.57[id number] 2.16.840.1.531001.3.579.2.1259 Social History DateTypeDetailFacilityUnknown if ever smokedRoscoe [employer] Other Start: 07-24-2024 End: 50-00-1484Ief Assigned At [facility] [employer] Other Start: 52-03-8708Rmx Assigned At [facility] Hospitaltart: 04-06-2021 End: 55-02-6172Iztzydh smoking status NHISSmokes tobacco dailyNOMS Healthcare History of tobacco useCigarette SmokerProFlorala Memorial Hospital Health SystemHistory of tobacco usePassive smokerNOMS HealthcareStart: 07-24-2024 End: 33-55-6689Oinponnuu beverage intakeLifetime non-drinker (finding)[facility] HealthcareStart: 07-24-2024 End: 72-79-1935Pzzqfgs of Social functionNOMS HealthcareStart: 80-01-5722Xbl assigned at birthNot on fileProMedind Health SystemStart: 04-13-4804Bqhstpb use and exposureSmokeless tobacco non-userProMedica Health SystemStart: 04-06-2021 Alcoholic beverage intakeCurrent non-drinker of alcohol (finding)[facility] Health SystemChildcareUnknownProMedCleveland Clinic [facility] SystemTobacco smoking status NHIS Unknown if ever smokedHighland District Hospital Work Phone: SexFemale (finding)[facility] Clinical Notes 02-07-2023 to 08-07-2025 Note Date & HpteZmljJgmlnryu30-20-6683 Evaluation note* Diagnosis Onset Date Resolution Status Admit Date Essential (primary) hypertension acuteOctober 2024 1:10pmFibromyalgia, primaryacuteOctober 2024 1:10pm FUENTES (generalized anxiety disorder)acuteOctober 2024 1:10pmGERD (gastroesophageal reflux disease)acuteOctober 2024 1:10pmHx of deep venous thrombosisacuteOctober 2024 1:10pmHyperlipidemia, unspecifiedacuteOctober 2024 1:10pmLeft hip painacuteOct2024 1:10pmNicotine dependence, cigarettes, uncomplicatedacuteOct2024 1:10pmOther chronic painacute August 07, 2025 1:10pmType 2 diabetes mellitus with diabetic chronic kidney diseaseacuteOct2024 1:10pmUTI symptomsacuteOct2024 1:10pm [facility] Work Phone: 1(157) 125-727110-02-2025 Hospital Discharge instructionsAmbulatory Orders* AMB POC Ur Dipstick Time Frame: 08/07/25, Location: Determined By Patient [facility] Work Phone: [phone] 399-891508-05-2025 History of Present illness Narrative* Magdalene Goodrich, MICHELLE - 06/10/2025 1:00 PM EDT Images [...] (dual therapy). She does not see a data capture clerk.Eye exam is not current. SUBJECTIVE: MEDICATIONS: Current [...] of the risks of continued smoking: stroke, AK, all forms of cancer, lung disease, and [...] of the risks of continued smoking: stroke, AK, all forms of cancer, lung disease, and [...] rx for bp monitor documented in this encounterHeartland Behavioral Health ServicesTepzcpmdng88-59-9291 Instructions* Patient Instructions* Magdalene Goodrich NP - 06/10/2025 1:00 PM EDT Add lisinopril 10mg daily in addition to metoprolol 25mg bid Check blood pressure once a day and record Come back in 1 month and bring the log of readings and blood pressure machine documented in this [facility]06-05-2025 History of Present illness Narrative* Magdalene Goodrich NP - 04/10/2025 2:51 PM EDTAssociated Problem(s): UTI symptoms Will treat with macrobid Fu if not better * Magdalene Goodrich, MICHELLE - 04/10/2025 2:00 PM EDT Lesly Steve [...] being taken. She does not see a data capture clerk.Eye exam is not current. Difficulty Urinating This [...] Date Age-related osteoporosis without current pathological fracture ([facility]) B12 deficiency Current episode of major depressive disorder without prior episode (CMS/HCC) Epilepsy, unspecified, not intractable, without status epilepticus 09/03/2018 Essential (primary) hypertension (CMS/HCC) FUENTES (generalized anxiety disorder) ([facility]) Hyperlipidemia (CMS/HCC) Insomnia, unspecified Left carpal tunnel syndrome Migraine Nicotine dependence, cigarettes, uncomplicated Restless leg syndrome Stroke ([facility]) Past Surgical History: Procedure Laterality Date BILATERAL [...] of the risks of continued smoking: stroke, AK, all forms of cancer, lung disease, and . Options for quitting smoking include: cold turkey, hypnosis, acupuncture, nicotine replacement meds(gum, lozenges, and patches), Buproprion, and Varenicline. At this time pt is encouraged to evaluate their goals for wanting to quit smoking, and reach out toprovider when ready to start this process Type 2 diabetes mellitus with diabetic chronic kidney disease ([facility]) - Primary Check blood sugars daily, notify [...] Other Visit Diagnoses Convulsions, unspecified convulsion type ([facility]) Relevant Medications levETIRAcetam (Keppra) 500 [...] of the risks of continued smoking: stroke, AK, all forms of cancer, lung disease, and [...] of major depressive disorder without prior episode ([facility]) At last appt, we discussed if need for grief counseling, she will think about this Current meds: none Overall feels she is doing better * Magdalene Goodrich NP - 04/10/2025 7:03 AM EDTAssociated Problem(s): Type 2 diabetes mellitus with diabetic chronic kidney disease ([facility]) Check blood sugars daily, notify [...] Current med: b raúl documented in this encounterHeartland Behavioral Health ServicesNzsndubfkf59-68-4054 History of Present illness Narrative* Magdalene Goodrich NP - 02/25/2025 5:23 PM EDTAssociated Problem(s): Fibromyalgia, primary gabapentin * GENA SMITH - 02/25/2025 2:00 PM EDT Last seen in office on 12/25/24 Hypertension. BP checks at home: Last check was last week 143 she was having anxiety, heart racing and [...] husbandspassing Loss of apatite * Magdalene Goodrich, PARTS PICKER - 02/25/2025 2:00 PM EDT Lesly Steve is a 74 y.o. female presents with chief complaint of FUENTES HPI: Last seen in office on 12/25/24 Hypertension. BP checks at home: Last check was last week she was having anxiety, heart racing and [...] diabetic treatment includes oral agent (monotherapy). An DAYRL inhibitor/angiotensin II receptor raúl is not being [...] Date Age-related osteoporosis without current pathological fracture ([facility]) B12 deficiency Current episode of major depressive disorder without prior episode ([facility]/HCC) Epilepsy, unspecified, not intractable, without status epilepticus 09/03/2018 Essential (primary) hypertension ([facility]/HCC) FUENTES (generalized anxiety disorder) ([facility]) Hyperlipidemia ([facility]) Insomnia, unspecified Left carpal tunnel syndrome Migraine Nicotine dependence, cigarettes, uncomplicated Restless leg syndrome Stroke ([facility]) Past Surgical History: Procedure Laterality Date BILATERAL [...] Visit Age-related osteoporosis without current pathological fracture ([facility]) RESOLVED: Anxiety (Chronic) Current episode of major depressive disorder without prior episode ([facility]/HCC) PHQ 9=12 Current meds: none Discussed if need for grief counseling, she will think about this Essential (primary) hypertension ([facility]) (Chronic) Please check blood pressure daily and record DASH diet Limit caffeine Take medication as directed Contact office if chest pain, pressure, dizziness, shortness of breath, swelling legs Recommend slow position changes Current med: b raúl FUENTES (generalized anxiety disorder) ([facility]) Current meds: xanax FUENTES 7=11 OARRS reviewed Med agreement signed Fibromyalgia, primary (Chronic) gabapentin Hyperlipidemia, unspecified ([facility]/HCC) On statin therapy Check labs yearly and prn dose chagnes Nicotine dependence, cigarettes, uncomplicated The patient has been advised of the risks of continued smoking: stroke, AK, all forms of cancer, lung disease, and [...] diabetes mellitus with diabetic chronic kidney disease ([facility]) Check blood sugars daily, notify [...] of the risks of continued smoking: stroke, AK, all forms of cancer, lung disease, and [...] of major depressive disorder without prior episode ([facility]) PHQ 9=12 Current meds: none Discussed if need for grief counseling, she will think about this * Magdalene Goodrich NP - 02/25/2025 6:56 AM EDTAssociated Problem(s): Essential (hemorrhagic) thrombocythemia Monitor labs periodically * Magdalene Goodrich NP - 02/25/2025 6:55 AM EDTAssociated Problem(s): Type 2 diabetes mellitus with diabetic chronic kidney disease ([facility]) Check blood sugars daily, notify [...] AM EDTAssociated Problem(s): Seizure (CMS/HCC) Current meds: deepak BID does follow with Neurology documented in this encounterHeartland Behavioral Health ServicesCuovztnxvr65-25-5073 Instructions* Patient Instructions* Magdalene Goodrich NP - 02/25/2025 2:00 PM EDT No changes in meds If you would like to see a grief counselor I can get you in touch with someone please let me know documented in this encounterHeartland Behavioral Health [id number] Telephone encounter Note* Telephone Encounter - GENA SMITH - 02/24/2025 8:42 AM EDT 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 is Magdalene, and I need to refill on my xanax. And I have a PIN and sent to [facility] My birthday, 1950. Thank you. 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 is Magdalene, and I need to refill on my xanax. And I have a PIN and sent to [place] [facility]. My birthday, 1950. Thank you. documented in this encounterHeartland Behavioral Health [id number] History of Present illness Narrative* Andrew Church [...] SI/HI. Will set patient up with [facility] * Andrew Cuhrch NP - 12/25/2024 2:17 PM ESTAssociated Problem(s): Prediabetes A1C 5.8% Currently taking Farxiga 5mg Last Eye Exam done 6 months ago- @ [place], [place] * Andrew Church NP - 12/25/2024 2:16 PM ESTAssociated Problem(s): Hyperlipidemia, unspecified (CMS/HCC) Currently taking atorvastatin 80mg Denies any myalgias. Most recent Lipid Panel Continue current regimen. * Andrew [...] Most recent Lipid Panel Continue current regimen. Component Ref Range & [...] ALBUMIN GLOBULIN RATIO 1.1 1.2 Resulting Agency [facility] Prediabetes: A1C 5.8% Currently taking Farxiga 5mg Last Eye Exam done 6 months ago- @ [place], [place] FUENTES: States she has been taking [...] Eye Exam done 6 months ago- @ [place], [place] documented in this [facility]02-11-2025 Telephone encounter Note* Telephone Encounter - Dot Figueroa MA - 12/17/2024 1:58 PM EST MARILIN:09/23/2024 NOV:12/23/2024 [facility] [id number] Miscellaneous Notes* Telephone Encounter - Dot Figueroa MA - 12/17/2024 1:58 PM EST MARILIN:09/23/2024 NOV:12/23/2024 documented in this [facility]12-09-2024 Telephone encounter Note* Telephone Encounter - Dot Figueroa MA - 10/14/2024 11:37 AM EST MARILIN:09/23/2024 NOV:12/23/2024 [facility] [id number] Miscellaneous Notes* Telephone Encounter - Dot Figueroa MA - 10/14/2024 11:37 AM EST MARILIN:09/23/2024 NOV:12/23/2024 documented in this [facility]11-19-2024 History of Present illness Narrative* Andrew Church NP - 09/24/2024 12:58 PM ESTAssociated Problem(s): Prediabetes A1C 6.1% Currently taking Farxiga 5mg Last Eye Exam done 6 months ago- @ [place], [place] * Andrew Church NP - 09/24/2024 [...] ALBUMIN GLOBULIN RATIO 1.1 1.2 Resulting Agency TB TB TB TBH TBH TBH Prediabetes: A1C 6.1% Currently taking Farxiga 5mg Last Eye Exam done 6 months ago- @ [place], [place] Was seen in ED for CVA concerns due to muscle cramps. CT head negative. 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 Pt reports she was dehydrated but feels [...] Eye Exam done 6 months ago- @ [place], [place] Relevant Orders Microalbumin / creatinine urine ratio Hemoglobin A1c Comprehensive metabolic panel CBC and differential documented in this encounterHeartland Behavioral Health [id number] Telephone encounter Note* Telephone Encounter - Dot Figueroa MA - 09/11/2024 10:08 AM EST MARILIN:07/24/2024 NOV:09/24/2024 [facility] [id number] Miscellaneous Notes* Telephone Encounter - Dot Figueroa MA - 09/11/2024 10:08 AM EST MARILIN:07/24/2024 NOV:09/24/2024 documented in this [facility]09-18-2024 History of Present illness Narrative* Andrew [...] of preventative Care- Will request results form [facility] and Dr. Schwartz Review of Systems [...] of sleep per night. documented in this [facility]09-18-2024 Instructions* Patient Instructions* Andrew Church NP - [...] of sleep per night. documented in this [facility]05-28-20[facility] Chief Complaint: New patient here to establish care. Ref from Dr. Schwartz for bradycardia. She had stroke last month and was admitted to [facility]. Still smokes almost 1 PPD but is trying to cut back. Says she's had mitral valve prolapse forever . Does feel palpitations at times. Thinks she used to see cardiology in [place] years ago. Denies chest pain, SOB, and [...] year ago. She used to see a lactation coordinator several years ago for what she describes [...] clinic following testing Jaron Johnson MD, MPH, [facility], [facility], [facility] Interventional Cardiology Pager Email: [email or web address] Miscellaneous Notes* Telephone Encounter - Alena Palacios RN - 03/25/2024 9:55 AM EDT error documented in this encounterRegency Hospital Company YuMe [id number] Telephone encounter Note* Telephone Encounter - Alena Palacios RN - 03/25/2024 9:55 AM EDT error [facility] [id number] Miscellaneous Notes* Telephone Encounter - Alena Palacios RN - 02/12/2024 11:11 AM EDT ----- Message from Cyndie Frankel PA-C sent at 02/09/2024 1:09 PM EDT ----- Regarding: [facility] follow up. Left > R multifocal cerebral [...] and she hung up documented in this encounterUK Healthcare04-08-2024 Telephone encounter Note* Telephone Encounter - Alena Palacios RN - 02/12/2024 11:11 AM EDT ----- Message from Cyndie Frankel PA-C sent at 02/09/2024 1:09 PM EDT ----- Regarding: [facility] follow up. Left > R multifocal cerebral ischemic stroke, suspected cardioembolic. 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 Smoker. Expressive aphasia. Needs 30 day cardiac event monitor. Please arrange to be sent to patient house. 4-6 week follow up with HERNÁN/Juan/Dr. Rose/Stroke Fellow [facility]04-08-2024 Telephone encounter Note* Telephone Encounter - Dolores Leos - 02/12/2024 11:11 AM EDT Called patient and no answer, VM not set up. [facility]04-08-2024 Telephone encounter Note* Telephone Encounter - Dolores Leos - 02/12/2024 11:11 AM EDT Spoke with patient and she said to call her sister to schedule appt Called [place] and there was no answer vm was full [facility]04-08-2024 Telephone encounter Note* Telephone Encounter - Alena Palacios RN - 02/12/2024 11:11 AM EDT Dolores, when you talk to family, please let them know event monitor was sent to patient's home address and ask for patient to wear it please. [facility] [id number] Telephone encounter Note* Telephone Encounter - Dolores Leos - 02/12/2024 11:11 AM EDT Called [place] and no answer, her mailbox was full. Will try back [facility] [id number] Telephone encounter Note* Telephone Encounter - Dolores Leos - 02/12/2024 11:11 AM EDT Called [place] and the line answered only to disconnect [facility] [id number] Telephone encounter Note* Telephone Encounter - Dolores Leos - 02/12/2024 11:11 AM EDT Called [place] 2x goes straight to VM which is full and can't leave messages Called patient and she hung up [facility] [id number] Evaluation note* Encounter Date Diagnosis Assessment Notes Treatment Notes Treatment Clinical Notes Aug, LLQ abdominal pain (ICD-10 - R10 .32) Reviewed paperwork and test results from [facility] ER. She agrees she needs a colonoscopy due to ongoing blood in her stool and LLQ pain. Agrees to referral to Dr. Stevenson. Aug,Hematochezia (ICD-10 - K92.1)as above [facility] Other 04-06-2023 NotePROCEDURE: XR HIP LT 2 [...] by: RAIN HOWE Date: 2023-02-09 11:04[facility]04-04-2023 Evaluation note* Encounter Date Diagnosis Assessment Notes Treatment Notes Treatment Clinical Notes Feb, Essential hypertension (ICD-10 - I10) Due for labs. Chronic problem. Feb,12 deficiency (ICD-10 - E53.8)Pt states she was previously on injections. Would like to check level due to fatigue. Feb,Other hyperlipidemia (ICD-10 - E78.49)Chronic problem, on statin, due for labs. Feb,Left hip pain (ICD-10 - M25.552)Several months - check Xray Also checked OARRS and reviewed pain contract brii Grace. [facility] Other Evaluation noteNo InformationNort [employer] Other Evaluation noteNoMicrofinance International Other Evaluation note* Diagnosis Onset Date Resolution Status Seizure acuteStrokeacute [facility] Work Phone: Evaluation note* Diagnosis Lumbar [...] (CMS/HCC)- Primary Unspecified essential hypertension Mixed hyperlipidemia ([facility]/HCC) Mixed hyperlipidemia Nicotine dependence, cigarettes, uncomplicated Cerebrovascular accident (CVA), unspecified mechanism (CMS/HCC) Prediabetes- Primary Other abnormal glucose Essential (primary) hypertension (CMS/HCC) Unspecified essential hypertension Mixed hyperlipidemia ([facility]/HCC) Mixed hyperlipidemia FUENTES (generalized anxiety disorder) ([facility]/HCC)- Primary Generalized anxiety disorder Convulsions, unspecified convulsion type ([facility]/HCC) Essential (primary) hypertension ([facility]/HCC) Unspecified essential hypertension Mixed hyperlipidemia ([facility]/HCC) Mixed hyperlipidemia Prediabetes Other abnormal glucose documented in this encounter [facility] HealthcareEvaluation note* Diagnosis Essential (primary) hypertension ([facility]/HCC)- Primary Unspecified essential hypertension Mixed hyperlipidemia ([facility]/HCC) Mixed hyperlipidemia Nicotine dependence, cigarettes, uncomplicated Cerebrovascular accident (CVA), unspecified mechanism (CMS/HCC) Prediabetes- Primary Other abnormal glucose Essential (primary) hypertension ([facility]/HCC) Unspecified essential hypertension Mixed hyperlipidemia ([facility]/HCC) Mixed hyperlipidemia FUENTES (generalized anxiety disorder) ([facility])- Primary Generalized anxiety disorder Convulsions, unspecified convulsion type ([facility]/HCC) Essential (primary) hypertension ([facility]/HCC) Unspecified essential hypertension Mixed hyperlipidemia ([facility]) Mixed hyperlipidemia Prediabetes Other abnormal glucose Hyperlipidemia, unspecified hyperlipidemia type ([facility]) Lumbar back pain Lumbago documented in [facility] encounter [facility]* Diagnosis Essential (primary) hypertension ([facility]/HCC)- Primary Unspecified essential hypertension Mixed hyperlipidemia ([facility]/HCC) Mixed hyperlipidemia Nicotine dependence, cigarettes, uncomplicated Cerebrovascular accident (CVA), unspecified mechanism (CMS/HCC) Prediabetes- Primary Other abnormal glucose Essential (primary) hypertension ([facility]/HCC) Unspecified essential hypertension Mixed hyperlipidemia ([facility]/HCC) Mixed hyperlipidemia FUENTES (generalized anxiety disorder) ([facility])- Primary Generalized anxiety disorder Convulsions, unspecified convulsion type ([facility]/HCC) Essential (primary) hypertension ([facility]/HCC) Unspecified essential hypertension Mixed hyperlipidemia ([facility]/HCC) Mixed hyperlipidemia Prediabetes Other abnormal glucose Lumbar back pain Lumbago documented in this encounter [facility]* Diagnosis Essential (primary) hypertension ([facility]/HCC)- Primary Unspecified essential hypertension Mixed hyperlipidemia ([facility]/HCC) Mixed hyperlipidemia Nicotine dependence, cigarettes, uncomplicated Cerebrovascular accident (CVA), unspecified mechanism ([facility]) Prediabetes- Primary Other abnormal glucose Essential (primary) hypertension ([facility]) Unspecified essential hypertension Mixed hyperlipidemia ([facility]) Mixed hyperlipidemia FUENTES (generalized anxiety disorder) ([facility])- Primary Generalized anxiety disorder Convulsions, unspecified convulsion type ([facility]) Essential (primary) hypertension ([facility]) Unspecified essential hypertension Mixed hyperlipidemia ([facility]) Mixed hyperlipidemia Prediabetes Other abnormal glucose Restless leg syndrome Restless legs syndrome (RLS) documented in this encounter [facility]* Diagnosis Essential (primary) hypertension ([facility])- Primary Unspecified essential hypertension Mixed hyperlipidemia ([facility]) Mixed hyperlipidemia Nicotine dependence, cigarettes, uncomplicated Cerebrovascular accident (CVA), unspecified mechanism ([facility]) Prediabetes- Primary Other abnormal glucose Essential (primary) hypertension ([facility]) Unspecified essential hypertension Mixed hyperlipidemia ([facility]) Mixed hyperlipidemia FUENTES (generalized anxiety disorder) ([facility])- Primary Generalized anxiety disorder Convulsions, unspecified convulsion type ([facility]) Essential (primary) hypertension ([facility]) Unspecified essential hypertension Mixed hyperlipidemia ([facility]) Mixed hyperlipidemia Prediabetes Other abnormal glucose FUENTES (generalized anxiety disorder) ([facility]) Generalized anxiety disorder Restless leg syndrome Restless legs syndrome (RLS) Seizure ([facility])- Primary Other convulsions Type 2 diabetes mellitus with diabetic chronic kidney disease ([facility]) Essential (hemorrhagic) thrombocythemia Restless leg syndrome Restless legs syndrome (RLS) Essential (primary) hypertension ([facility]) Unspecified essential hypertension Age-related osteoporosis without current pathological fracture ([facility]) Fibromyalgia, primary Anxiety Anxiety state, unspecified Current episode of major depressive disorder without prior episode, unspecified depression episode severity ([facility]) FUENTES (generalized anxiety disorder) ([facility]) Generalized anxiety disorder Mixed hyperlipidemia ([facility]) Mixed hyperlipidemia Nicotine dependence, cigarettes, uncomplicated documented in this encounter [facility]* Diagnosis Essential (primary) hypertension ([facility])- Primary Unspecified essential hypertension Mixed hyperlipidemia ([facility]) Mixed hyperlipidemia Nicotine dependence, cigarettes, uncomplicated Cerebrovascular accident (CVA), unspecified mechanism ([facility]) Prediabetes- Primary Other abnormal glucose Essential (primary) hypertension ([facility]) Unspecified essential hypertension Mixed hyperlipidemia ([facility]) Mixed hyperlipidemia FUENTES (generalized anxiety disorder) ([facility])- Primary Generalized anxiety disorder Convulsions, unspecified convulsion type ([facility]) Essential (primary) hypertension ([facility]) Unspecified essential hypertension Mixed hyperlipidemia ([facility]) Mixed hyperlipidemia Prediabetes Other abnormal glucose Essential (primary) hypertension ([facility])- Primary Unspecified essential hypertension Type 2 diabetes mellitus with diabetic chronic kidney disease ([facility]) Essential (hemorrhagic) thrombocythemia Seizure ([facility]) Other convulsions Restless leg syndrome Restless legs syndrome (RLS) Age-related osteoporosis without current pathological fracture ([facility]) Fibromyalgia, primary Anxiety Anxiety state, unspecified Current episode of major depressive disorder without prior episode, unspecified depression episode severity ([facility]) FUENTES (generalized anxiety disorder) ([facility]) Generalized anxiety disorder Mixed hyperlipidemia ([facility]) Mixed hyperlipidemia Nicotine dependence, cigarettes, uncomplicated documented in this encounter [facility]* Diagnosis Essential (primary) hypertension ([facility])- Primary Unspecified essential hypertension Mixed hyperlipidemia ([facility]) Mixed hyperlipidemia Nicotine dependence, cigarettes, uncomplicated Cerebrovascular accident (CVA), unspecified mechanism ([facility]) Prediabetes- Primary Other abnormal glucose Essential (primary) hypertension ([facility]) Unspecified essential hypertension Mixed hyperlipidemia ([facility]) Mixed hyperlipidemia FUENTES (generalized anxiety disorder) ([facility])- Primary Generalized anxiety disorder Convulsions, unspecified convulsion type ([facility]) Essential (primary) hypertension ([facility]) Unspecified essential hypertension Mixed hyperlipidemia ([facility]) Mixed hyperlipidemia Prediabetes Other abnormal glucose Essential (primary) hypertension ([facility])- Primary Unspecified essential hypertension Type 2 diabetes mellitus with diabetic chronic kidney disease ([facility]) Essential (hemorrhagic) thrombocythemia Seizure ([facility]) Other convulsions Restless leg syndrome Restless legs syndrome (RLS) Age-related osteoporosis without current pathological fracture ([facility]) Fibromyalgia, primary Anxiety Anxiety state, unspecified Current episode of major depressive disorder without prior episode, unspecified depression episode severity ([facility]) FUENTES (generalized anxiety disorder) ([facility]) Generalized anxiety disorder Mixed hyperlipidemia ([facility]) Mixed hyperlipidemia Nicotine dependence, cigarettes, uncomplicated Cerebrovascular accident (CVA), unspecified mechanism ([facility]) documented in this encounter [facility]* Diagnosis Essential (primary) hypertension ([facility])- Primary Unspecified essential hypertension Mixed hyperlipidemia ([facility]) Mixed hyperlipidemia Nicotine dependence, cigarettes, uncomplicated Cerebrovascular accident (CVA), unspecified mechanism ([facility]) Prediabetes- Primary Other abnormal glucose Essential (primary) hypertension ([facility]) Unspecified essential hypertension Mixed hyperlipidemia ([facility]) Mixed hyperlipidemia FUENTES (generalized anxiety disorder) ([facility])- Primary Generalized anxiety disorder Convulsions, unspecified convulsion type ([facility]) Essential (primary) hypertension ([facility]) Unspecified essential hypertension Mixed hyperlipidemia ([facility]) Mixed hyperlipidemia Prediabetes Other abnormal glucose Essential (primary) hypertension ([facility])- Primary Unspecified essential hypertension Type 2 diabetes mellitus with diabetic chronic kidney disease ([facility]) Essential (hemorrhagic) thrombocythemia Seizure ([facility]) Other convulsions Restless leg syndrome Restless legs syndrome (RLS) Age-related osteoporosis without current pathological fracture ([facility]) Fibromyalgia, primary Anxiety Anxiety state, unspecified Current episode of major depressive disorder without prior episode, unspecified depression episode severity ([facility]) FUENTES (generalized anxiety disorder) ([facility]) Generalized anxiety disorder Mixed hyperlipidemia ([facility]) Mixed hyperlipidemia Nicotine dependence, cigarettes, uncomplicated Lumbar back pain Lumbago documented in this encounter [facility]* Diagnosis Essential (primary) hypertension ([facility])- Primary Unspecified essential hypertension Mixed hyperlipidemia ([facility]) Mixed hyperlipidemia Nicotine dependence, cigarettes, uncomplicated Cerebrovascular accident (CVA), unspecified mechanism ([facility]) Prediabetes- Primary Other abnormal glucose Essential (primary) hypertension ([facility]) Unspecified essential hypertension Mixed hyperlipidemia ([facility]) Mixed hyperlipidemia FUENTES (generalized anxiety disorder) ([facility])- Primary Generalized anxiety disorder Convulsions, unspecified convulsion type ([facility]) Essential (primary) hypertension ([facility]) Unspecified essential hypertension Mixed hyperlipidemia ([facility]) Mixed hyperlipidemia Prediabetes Other abnormal glucose Essential (primary) hypertension ([facility])- Primary Unspecified essential hypertension Type 2 diabetes mellitus with diabetic chronic kidney disease ([facility]) Essential (hemorrhagic) thrombocythemia Seizure ([facility]) Other convulsions Restless leg syndrome Restless legs syndrome (RLS) Age-related osteoporosis without current pathological fracture ([facility]) Fibromyalgia, primary Anxiety Anxiety state, unspecified Current episode of major depressive disorder without prior episode, unspecified depression episode severity ([facility]) FUENTES (generalized anxiety disorder) ([facility]/HCC) Generalized anxiety disorder Mixed hyperlipidemia ([facility]) Mixed hyperlipidemia Nicotine dependence, cigarettes, uncomplicated Type 2 diabetes mellitus with stage 3a chronic kidney disease, without long-term current use of insulin (HCC) ([facility])- Primary Essential (primary) hypertension ([facility]/HCC) Unspecified essential hypertension FUENTES (generalized anxiety disorder) ([facility]) Generalized anxiety disorder Lumbar back pain Lumbago Current episode of major depressive disorder without prior episode, unspecified depression episode severity ([facility]) Nicotine dependence, cigarettes, uncomplicated UTI symptoms Convulsions, unspecified convulsion type ([facility]) documented in this encounter [facility] [...] disease, without long-term current use of insulin ([facility])- Primary Essential (primary) hypertension Unspecified essential hypertension [...] convulsion type (HCC) documented in this encounter [facility]* Diagnosis Onset Date Resolution Status Admit Date Essential (primary) hypertension acuteOctober 2024 1:10pmFibromyalgia, primaryacuteOctober 2024 1:10pm FUENTES (generalized anxiety disorder)acuteOctober 2024 1:10pmGERD (gastroesophageal reflux disease)acuteOctober 2024 1:10pmHx of deep venous thrombosisacuteOctober 2024 1:10pmHyperlipidemia, unspecifiedacuteOctober 2024 1:10pmLeft hip painacuteOctober 2024 1:10pmNicotine dependence, cigarettes, uncomplicatedacuteOctober 2024 1:10pmOther chronic painacute October 2024 1:10pmType 2 diabetes mellitus with diabetic chronic kidney diseaseacuteOctober 2024 1:10pmUTI symptomsacuteOctober 2024 1:10pm [facility] Work Phone: History general Narrative - Reported* Type Description Date Medical History Bronchitis Medical HistoryAnxiety and depressionMedical HistoryEssential hypertension Medical HistoryMigraineMedical HistoryAcute insomniaMedical [id number] deficiencyMedical HistoryLeft temporal headacheMedical HistoryCurrent episode of major depressive disorder without prior episode, unspecified depression episode severityMedical HistorySciatic pain, rightMedical HistoryRestless leg syndrome Medical HistoryGAD (generalized anxiety disorder)Medical HistoryAbdominal pain Medical HistorySERUM LIPIDS HIGHSurgical HistoryCATARACT EXTRAXTIONSurgical HistoryTOTAL HIP ARTHROSCOPY-LEFTSurgical HistoryTOTAL HYSTERECTOMYSurgical HistoryBSOSurgical HistoryRIGHT HAND RECONSTRUCTIONHospitalization HistorySEE SURGICAL HX [facility] Don[employer]Search Other History general Narrative - ReportedNortBarnes-Kasson [facility] DonorSearch Other Hospital Discharge instructionsAmbulatory Orders* Referral to Neurology Time Frame: 02/13/24, Location: None Selected [facility] Work Phone: InstructionsNot on filedocumented in this encounter [facility] SystemInstructionsNot on filedocumented in this encounter [facility] SystemReason for referral (narrative)No reason for referral information availableHighland District Hospital Work Phone: Summary Purpose Family History No Family History Records Found Relationship Condition Age at Onset Recorded Date/T sam father Unknown Not SpecifiedDeceasedUnknown Relationship Condition Age at Onset Recorded Date/T sam father Unknown motherDeceasedUnknown Advance Directives No Advanced Directives Records Found Advance Directive Response Recorded Date/ Time Advance Directives No February 12 10:17am Date ActivatedDate InactivatedComments04/06/2021 3:19 AM04/10/2021 6:20 PM Advance Directive Response Recorded Date/ Time Advance Directives No August 07, 2025 2:10pm Reason for Referral Reason Needs colonosco py - had imaging in [facility] ER. 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 Referral Priority Routine General Notes Maida Dave 02:01:18 PM >received today, attachments made, waiting for notes to be locked Chief Complaint and Reason for Visit Chief Complaint Amb Documentation Amb Documentation [facility] d/cReason for VisitSeizure Stroke Chief Complaint Admit Date 1M August [...] FOR VISIT (unrecogniz ed section and content) ReasonOnset DateCommentsMed Iosgly40/01/2024ReasonCommentsMed Change Request ReasonOnset DateCommentsMed [id number]-up2 m follow upEr 09/21/24ReasonOnset DateCommentsMed [id number] CareReasonOnset DateCommentsMed Mpoocc3111/13/2024ReasonOnset DateCommentsMed Ylrvmj1112/17/2024ReasonCommentsFollow-upReasonOnset DateCommentsMed Refill 01/13/2025ReasonOnset DateCommentsMed Lrngdh3502/19/2025ReasonOnset DateComments Med Tcrzxx0702/24/2025ReasonCommentsGADReasonCommentsDiabetesReasonOnset Date CommentsMed Wjrvhx5305/12/2025ReasonCommentsMed Refill INFORMATION SOURCE (unrecogn ized section and content) DATE CREATED AUTHOR 02/18/2023 [facility] DATE CREATED AUTHOR AUTHOR'S ORGANIZ ATION 02/13/2024 [facility] DATE CREATED AUTHOR AUTHOR'S ORGANIZ ATION 03/28/2024 [facility] DATE CREATED AUTHOR AUTHOR'S ORGANIZ ATION 04/03/2024 [facility] DATE CREATED AUTHOR AUTHOR'S ORGANIZ ATION 09/30/2024 [facility] DATE CREATED AUTHOR AUTHOR'S ORGANIZ ATION 06/13/2025 [facility] DATE CREATED AUTHOR AUTHOR'S ORGANIZ ATION 08/17/2025 [facility] Care Teams (unrecognized sec tion and content) Team Status: Active Member Role Status Dates Robert Schwartz MD Primary Care Provider Active Team Status: Active Member Role Status Dates Robert Schwartz MD Primary Care Provider Active Start: December 22, 2023 Kv[employer] Vann ProviderActiveStart: December 22, 2023 Team Status: Active Member Role Status Dates Robert Schwartz MD Primary Care Provider Active Start: January 15, 2024 K[employer]ann ProviderActiveStart: January 15, 2024 Team Status: Active Member [...] Start: February 13, 2024 End: February 13, 2024Team MemberRelationshipSpecialtyStart DateEnd Date Robert Schwartz MD [address] [place] [facility] [place] [address] [facility]/25/24Team MemberRelationshipSpecialtyStart DateEnd Date Robert Schwartz MD [address] [place] [facility] [place] [address] [facility] - [facility]03/25/24Team MemberRelationshipSpecialtyStart DateEnd Date Ethan Bonilla MD [address] [place] [phone] PCP - GeneralFamily Fzrvyogm32/10/24 Andrew Church NP [address] [place] [address] Nurse PractitionerMethodist Jennie Edmundsonly Sxpucwgu48/10/24Team MemberRelationshipSpecialtyStart DateEnd Date Ethan Bonilla MD [address] [place] [address] PCP - GeneralFamily Tlzovdpt57/10/24 Andrew Church NP [address] [place] [address] Nurse PractitionerMethodist Jennie Edmundsonly Ucodqjwq12/10/24Team MemberRelationshipSpecialtyStart DateEnd Date Ethan Bonilla MD [address] [place] [address] PCP - GeneralFamily Aqcphkzy35/10/24 Andrew Church, MICHELLE [address] [place] [address] Nurse Practitionermily Fafcmvot37/10/24Team MemberRelationshipSpecialtyStart DateEnd Date Ethan Bonilla MD [address] [place] [address] PCP - GeneralFamily Zrlfpago63/10/24 Andrew Church, MICHELLE [address] [place] [address] Nurse Practitionermily Gjbwwuhj13/10/24Team MemberRelationshipSpecialtyStart DateEnd Date Ethan Bonilla MD [address] [place] [address] PCP - GeneralFamily Uhaixrgs08/10/24 Andrew Church, MICHELLE [address] [place] [address] Nurse Practitionermily Nrrtghmr82/10/24Team MemberRelationshipSpecialtyStart DateEnd Date Robert Schwartz MD [address] [place] [facility] [place] [address] PCP - GeneralFamily Medicine03/25/24Team MemberRelationshipSpecialtyStart DateEnd Date Ethan Bonilla MD [address] [place] [address] PCP - GeneralFamily Hvrdrbll29/10/24 Andrew Church, MICHELLE [address] [place] [address] Nurse PractitionerMethodist Jennie [facility]mundsonly Vjoklykg55/10/24Team MemberRelationshipSpecialtyStart DateEnd Date Robert Schwartz MD [address] [facility] [place] [address] PCP - Generalmily Medicine03/25/24Team MemberRelationshipSpecialtyStart DateEnd Date Ethan Bonilla MD [address] [place] [address] PCP - GeneralFamily Dlzawatc34/10/24 Andrew Church, MICHELLE [address] [place] [address] Nurse PractitionerMethodist Jennie [facility]dsonly Amrgpeyx08/10/24Team MemberRelationshipSpecialtyStart DateEnd Date Ethan Bonilla MD [address] [place] [address] PCP - GeneralFamily Wtaayxfi54/10/24 Andrew Church NP [address] [place] [address] Nurse PractitionerFamily Fjxietth62/10/24Team MemberRelationshipSpecialtyStart DateEnd Date Saira Campbell, DO [facility], [address] [place] [address] PCP - General12/28/17Team MemberRelationshipSpecialtyStart DateEnd Date Saira Campbell, DO [address] [place] [address], [address] [place] [address] PCP - General12/28/17Team MemberRelationshipSpecialtyStart DateEnd Date Ethan Bonilla MD [address] [place] [address] PCP - GeneralFamily Svcpnkgz33/10/24 Andrew Church NP [address] [place] [address] Nurse Practitionermily Bxpapvfm45/10/24Team MemberRelationshipSpecialtyStart DateEnd Date Ethan Bonilla MD [address] [place] [address] PCP - GeneralFamily Rjsifbsx63/10/24 Andrew Church NP [address] [place] [address] Nurse Practitionermily Lxhxpntl42/10/24Team MemberRelationshipSpecialtyStart DateEnd Date Ethan Bonilla MD [address] [place] [address] PCP - GeneralFamily Gkenizbn15/10/24 Andrew Church NP [address] [place] [address] [facility]/15/24Team MemberRelationshipSpecialtyStart DateEnd Date Ethan Bonilla MD [address] [place] [address] PCP - [facility]08/15/24 Andrew Church NP [address] [place] [address] [facility]08/15/24Team MemberRelationshipSpecialtyStart DateEnd Date Ethan Bonilla MD [address] [place] [phone] PCP - [facility]08/15/24 Andrew Church NP [address] [place] [address] Nurse [facility]08/15/24Team MemberRelationshipSpecialtyStart DateEnd Date Ethan Bonilla MD [address] [place] [phone] PCP - [facility]08/15/24 Andrew Church NP [address] [place] [address] [facility]08/15/24Team MemberRelationshipSpecialtyStart DateEnd Date Ethan Bonilla MD [address] [place] [phone] PCP - GeneralFamily Jkkjnfpr93/10/24 Andrew Church NP [address] [place] [address] [facility] Irqqhklp97/10/24Team MemberRelationshipSpecialtyStart DateEnd Date Ethan Bonilla MD [address] [place] [phone] [facility] - [facility] Irtclrqo97/10/24 Andrew Church NP [address] [place] [address] [facility]08/15/24Team MemberRelationshipSpecialtyStart DateEnd Date Ethan Bonilla MD [address] [place] [address] PCP - Generalmi Pvmsbmsu97/10/24 Andrew Church NP [address] [place] [address] [facility]08/15/24Team MemberRelationshipSpecialtyStart DateEnd Date Ethan Bonilla MD [address] [place] [address] [facility] Cbisfnxc10/10/24 Andrew Church NP [address] [place] [address] [facility]08/15/24Team MemberRelationshipSpecialtyStart DateEnd Date Ethan Bonilla MD [address] [place] [address] PCP - GeneralFamily Itdetuyp63/10/24 Andrew Church NP [address] [place] [address] [facility] Amcgocrr97/10/24Team MemberRelationshipSpecialtyStart DateEnd Date Ethan Bonilla MD [address] [place] [address] [facility] - [facility] Ihfyybuc47/10/24 Andrew Church NP [address] [place] [address] [facility]08/15/24Team MemberRelationshipSpecialtyStart DateEnd Date Ethan Bonilla MD [address] [place] [phone] PCP - Generalmi Qrdjgnpg78/10/24 Andrew Church NP [address] [place] [address] [facility]08/15/24Team MemberRelationshipSpecialtyStart DateEnd Date Ethan Bonilla MD [address] [place] [address] [facility] - [facility] Grzqlslw28/10/24 Andrew Church NP [address] [place] [address] [facility] Zrjufzdj36/10/24Team MemberRelationshipSpecialtyStart DateEnd Date Ethan Bonilla MD [address] [place] [phone] PCP - [facility]08/15/24 Andrew Church NP [address] [place] [address] [facility]08/15/24Team MemberRelationshipSpecialtyStart DateEnd Date Ethan Bonilla MD [address] [place] [phone] PCP - [facility]08/15/24 Andrew Church NP [address] [place] [address] Nurse [facility]08/15/24 Team Status: Active Member Role Status Dates YOLANDA Miller Primary Care Provider Active Team Status: Inactive Member Role Status Dates YOLANDA Miller Primary Care Provider Active Start: August 07, 2025 End: August 07, 2025Feliciano Millertending ProviderActiveStart: August 07, 2025 End: August 07, 2025 [...] BE BASED ON THE PRIMARY CLINICAL RECORDS. [facility] [employer] [facility]. provides no warranty or guarantee of the accuracy or completeness of information in this document.
[2025-08-28 15:01] LABS: Hematocrit 50.0 % (36.0-48.0); Hemoglobin 16.7 g/dL (12.0-16.0); Immature Granulocytes Abs Auto 0.02 10^3/uL (0.00-0.03); Immature Granulocytes Pct Auto 0.3 % (0.0-0.5); Lymphocytes Absolute Auto 2.5 10^3/uL (1.2-3.8); Mean Corpuscular HGB Conc 33.4 g/dL (29.9-35.2); Mean Corpuscular Hemoglobin 34.3 pg (26.7-34.0); Mean Corpuscular Volume 102.7 fL (81.0-99.0); Platelet Count 445 10^3/uL (150-450); Red Blood Count 4.87 10^6/uL (4.20-5.40); White Blood Count 7.2 10^3/uL (4.0-11.0)
[2025-08-28 15:21] LABS: Alanine Aminotransferase 41 U/L (14-59); Albumin Globulin Ratio 1.1; Albumin Level 4.0 g/dL (3.4-5.0); Alkaline Phosphatase 86 U/L (46-116); Anion Gap 11.8; Aspartate Amino Transferase 30 U/L (15-37); Blood Urea Nitrogen 23.0 mg/dL (7.0-18.0); Calcium 9.6 mg/dL (8.5-10.1); Carbon Dioxide 29.7 mmol/L (21.0-32.0); Chloride 104 mmol/L (98-107); Estimated GFR (African America >60 (>=60 mL/min/1.73m^2); Estimated GFR (Non-African Ame >60 (>=60 mL/min/1.73m^2); Globulin 3.6 g/dL; Glucose 106 mg/dL (74-106); Potassium 4.5 mmol/L (3.5-5.1); Sodium 141 mmol/L (136-145); Total Protein 7.6 g/dL (6.4-8.2)
[2025-08-28 15:46] LABS: Iron 104.0 ug/dL (50.0-170.0); Percent Iron Saturation 29.4 %; Total Iron Binding Capacity 354.0 ug/dL (250.0-450.0)
[2025-08-28 16:10] LABS: Ferritin 164.0 ng/mL (8.0-252.0)
[2025-08-29 04:07] LABS: Vitamin B12 782 pg/mL (232-1245)
== END 2025-08-28 14:29 | disposition home or self-care (01) ==
LOC: LAB 14:31
PROVIDERS: PCP Nurse Practitioner; Visit Provider Internal Medicine Hematology & Oncology
DX: D72.829 Elevated white blood cell count, unspecified (principal); D47.3 Essential (hemorrhagic) thrombocythemia; R71.8 Other abnormality of red blood cells
CPT/HCPCS: 36415; 80053; 82306; 82607; 82728; 83540; 83550; 85025

== ENCOUNTER 2025-09-02 14:54 | Outpatient (RCR) | payer MEDICARE, MEDICAID, SELFPAY | END 2025-09-05 23:59 | disposition home or self-care (01) | LOC: HEMC 14:54 | PROVIDERS: PCP Nurse Practitioner; Visit Provider Internal Medicine Hematology & Oncology | DX: D47.3 Essential (hemorrhagic) thrombocythemia (principal); D72.829 Elevated white blood cell count, unspecified; F17.210 Nicotine dependence, cigarettes, uncomplicated; Z90.710 Acquired absence of both cervix and uterus; Z90.722 Acquired absence of ovaries, bilateral; R71.8 Other abnormality of red blood cells; Z86.73 Personal history of transient ischemic attack (TIA), and cerebral infarction without residual deficits; Z96.642 Presence of left artificial hip joint | CPT/HCPCS: G0463 ==

== ENCOUNTER 2025-09-09 11:09 | Outpatient (OUT) | payer MEDICARE, MEDICAID, SELFPAY ==
--- OUTSIDE RECORDS SUMMARY | 2015-05-12 03:45 | XMS_ITS | Continuity of Care Document ---
Author Organization [facility] Address [address] [place] [address] Phone Care Team Providers Care Acquisition Advisor Name Role Phone Oral DMD February Unavailable Unavailable Allergies, Adverse Reactions, Alerts Substance Reaction Status Criticality phenobarbital (severe) Active No Information Penicillins Hives/Skin Rash Active No Informati on Medications Medication Instructions Dosage Effective Dates (start - stop) Status Comments Depakote ER 500 mg tablet,extended release take 1 tablet by oral route every day 500 MG - Active lisinopril 40 mg tablet take 1 tablet by oral route every day 40 MG - Active Xanax 1 mg tablet take 1 tablet by oral route 2 times every day 1 MG - Active latanoprost 0.005 % eye drops instill 1 drop by ophthalmic route every day into affected eye(s) in the evening 1.00 drop - Active Pred Forte 1 % eye drops,suspension instill 1 drop by ophthalmic route 2 times every day into affected eye(s) 1.00 drop - Active Combigan 0.2 %-0.5 % eye drops instill 1 drop by ophthalmic route every 12 hours into affected eye(s) 1.00 drop - Active Lumigan 0.01 % eye drops - Active Cosopt 22.3 mg-6.8 mg/mL eye drops instill 1 drop by ophthalmic route 2 times every day into affected eye(s) 1.00 drop - Active Lyrica 75 mg capsule take 1 capsule by oral route 2 times every day 75 MG - Active Percocet 5 mg-325 mg tablet take 1 tablet by oral route every 6 hours as needed 1.00 tablet - Active Requip 0.5 mg tablet take 1 tablet by oral route 3 times every day - Active Fosamax 70 mg tablet take 1 tablet by oral route every week in the morning, at least 30 min before first food, beverage, or medication of day 70 MG - Active Procedures Procedure Date Intraoral-complete Series (bw) 15 Comp Oral Eval New/estab Patient 2014 Advance Directives Directive Yes / No Effective Date File Name No Information Encounters Encounter Description Practice Location Reason(s) For Visit Diagnoses Date Provider Providers Copied on Encounter [facility], [address], [place], [id number], [place] tel:[phone] Dental Clinic Dental exam Oral DMD Nazanin. [address], [place], [id number], [place]. tel:[phone] Family History Family Member Type Diagnosis Age At Onset No Information Payers Payer name Insurance type Covered democrat ID nadia crook(s) D Medicaid Primary [facility] [id number] Social History Type Description Quantity Date Captured Comments Alcohol Use Details Unknown Caffeine Use Details Unknown Tobacco Use Status Moderate cigarette s moker (10-19 cigs/day) Smoking Status Heavy tobacco smoker Smoking Tobacco Use Details Cigarette: Years Used 35 Cigarette: 10 Packs per day, Pack Year: 17.5 [id number] SexFemale Vital Signs Date / Time: Height Weight BMI Pulse Rate Blood Pressure Temperature Respiratory Rate Body Surface Area Head Circumference Head Circ. Percentile Wt./Francis. Percentile BMI percentile Pulse Ox Inhaled Ox 8:54 AM 65 /min 115/76 mm[Hg] Chief Complaint And Reason For Visit No Information Reason For Referral Reason For Referral No Information History Of Present Illness Encounter Date Complaint History Of Prese nt Illness No Information Functional Status Date Functional Assessmen t No Information Instructions Date Instruction Additional Infor mation No Information Assessments Type Assessment Date assessment Dental exam Patient Care Teams Name Effective Dates (start - stop) Status Members No Information
--- OUTSIDE RECORDS SUMMARY | 2025-09-08 09:10 | XMS_ITS | Continuity of Care Document ---
Author Organization [facility] Address [address] [place] [address] Phone Care Team Providers Care [employer] Name Role Phone Magdalene Goodrich CHILD DAY CARE PROVIDER-C Primary Care Provider Magdalene Goodrich CHILD DAY CARE PROVIDER-C Attending Provider Lakia Tomlin MD Attending Provider Care Teams Patient Care Team Team Status: Active Member Role/Relationship Status Dates Magdalene Goodrich NP-C Primary Care Provider Active Visit Care Team Team Status: Inactive Member Role/Relationship Status Dates Magdalene Goodrich CHILD DAY CARE PROVIDER-C Primary Care Provider Active Start: August 07, 2025 End: August 07, 2025Magdalene Goodrich NP-CAttending ProviderActiveStart: August 07, 2025 End: August 07, 2025 Visit Care Team Team Status: Inactive Member Role/Relationship Status Dates Magdalene Goodrich NP-C Attending Provider Active Start: August 07, 2025 End: August 07, 2025 Patient Care Team Team Status: Active Member Role/Relationship Status Dates Lakia Tomlin MD Attending Provider Active St art: August 28, 2025 Patient Care Team Team Status: Inactive Member Role/Relationship Status Dates Magdalene Goodrich CHILD DAY CARE PROVIDER-C Primary Care Provider Active Start: September 08, 2025 End: September 08, 2025Magdalene Goodrich NP-CAttending ProviderActiveStart: September 08, 2025 End: September 08, 2025 Chief Complaint and Reason for Visit Chief Complaint Admit Date 1M August 07, 2025 1: 10pm [place] Urine August 07, 2025 2: 00pm 1M September 08, 2025 1 :12pm Reason for Visit Admit Date Essential (primary) [...] UTI symptoms August 07, 2025 1: 10pm Bilateral ankle pain September 08, 2025 1:12pm Essential (primary) hypertension Novembe r 2024 1:12pm FUENTES (generalized anxiety disorder) Novem susan 2024 1:12pm Hx of deep venous thrombosis September 1:12pm Left hip pain September 08, 2025 1 :12pm Nicotine dependence, cigarettes, uncompl icated September 08, 2025 1:12pm Right foot pain September 08, 2025 1 :12pm Status post fall September 08, 2025 1 :12pm Allergies, Adverse Reactions, Alerts Allergen Type Severity Reaction Last Updated Verified Status Comments nickel Allergy Unknown Hives September 08, 2025 1:43pm Yes Active penicillin G benzathineAllergyFranciscan Health [facility] 2024 1:43pmYesActive PenicillinsAllergyUnknowFloyd [facility] 2024 1:43pmYesActivephenobarbital AllergyUnknowFloyd [facility] Health [facility] 2024 1:43pmYesActivephenytoinAllergyUnkspring mountain [facility]ern [facility] 2024 1:43pmYesActivezincAllergyUnkColumbus Regional Health 2024 1:43pmYesActivePHENobarbital *HYPNOTICS/SEDATAllergyUnknoSelect Medical [facility] Rehabilitation HospitalivesApril 2023 10:33amNoActiveFree Text Allergy: PHENobarbital *HYPNOTICS/SEDATIVES/SLEEP DISORDER Social History Smoking Status Unknown if ever smoked Observation Status Observation Response Date of Response Legal Sex [facility] (finding) [facility] Family History Relationship Condition Age at Onset Recorded Date/T sam father Unknown motherDeceasedUnknown Problems Active Problems Problem Diagnosis/Recorded Date Onset Date Stat us Hx of deep venous thrombosis August 07, 2025 12:53pm Unknown Active Arthritis of right glenohume ral joint July 16, 2025 9:25am Unknown Active Current episode of major depressive disorder without prior episode February 09, 2024 1:36pm Unknown Active Insomnia, unspecified February 09, 2024 1:36pm Unknown Active FUENTES (generalized anxiety disorder) February 09, 2024 1:36pm Unknown Active Bilateral ankle pain September 08, 2025 2:04pm Unknown Active Type 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 July 16, 2025 9:30am Unknown Active Age-related osteoporosis without current pathological fracture February 09, 2024 1:36pm September 03, 2018 Active Epilepsy, unspecified, not intractable, without status epilepticus February 09, 2024 1:36pm September 03, 2018 Active Left carpal tunnel syndrome February 09, 2024 1:36pm Unk nown Active Nicotine dependence, cigarettes, uncomplicated February 09, 2024 1:36pm Unknown Active Status post fall September 08, 2025 2:04pm Unknown Active Aphasia July 16, 2025 9:25am Unknown Active Rupture of right rotator cuff July 16, 2025 9:2 9am Unknown Active Fatigue March 19, 2024 1:43pm Unknown Active UTI symptoms July 16, 2025 9:30am Unknown Active B12 deficiency February 09, 2024 1:36pm Unknown Act jayesh Essential (hemorrhagic) thrombocythemia July 16, 2025 9:26am Unknown Active Anxiety December 22, 2023 12:58pm Unknown Active Bradycardia March 19, 2024 1:43pm Unknown Active Eczema July 16, 2025 9:26am Unknown Active Encounter for wellness examination July 16, 2025 9:26am Unknown Active Migraine February 09, 2024 1:36pm Unknown Activ e Hyperlipidemia, unspecified February 09, 2024 1:36pm Unk nown Active Other chronic pain July 16, 2025 9:29am Unknown Active Restless leg syndrome February 09, 2024 1:36pm Unknown Active Seizure February 13, 2024 10:45am Unknown Acti ve Thrombocytosis March 20, 2024 12:13pm Unknown Act jayesh Essential (primary) hypertension February 09, 2024 1:36pm Unknown Active Lumbar back pain December 22, 2023 12:59pm Unknown Active Right foot pain September 08, 2025 2:04pm Unknown Active Fibromyalgia, primary July 16, 2025 9:27am Unkn own Active Left hip pain August 07, 2025 12:53pm Unknown A ctive Drug-induced acute pancreati tis without infection or necrosis July 16, 2025 9:26am Unknown Ac tive GERD (gastroesophageal reflu x disease) July 16, 2025 9:27am Unknown Active Glaucoma July 16, 2025 9:27am Unknown Active Hypotension February 14, 2024 4:44am Unknown Acti ve Stroke February 13, 2024 10:35am Unknown Acti ve Medications Medication Status Dose Units Route Directions Qty Days Refills S tart Date Stop Date End Date Reason(s) Instructions Adherence Oxybutynin Chloride 5 mg tablet Discontinued 5 MG PO Every 8 hours 270 1February 2023 12:00amDecember 2023 4:53pmLevetiracetam 500 mg tablet Discontinued0.ROUTE.IJJERCF9515Hwctm 2023 12:09pmMay 2023 1:27pmTAKE 1 TABLET BY MOUTH TWICE A DAYRopinirole 0.5 mg tabletDiscontinued0.ROUTE.COMPLEX 900March 2023 7:33amApril 2023 10:34amTAKE 1 TABLET BY MOUTH 1 TO 3 HOURS BEFORE BEDTIME DAILY 90Alprazolam 1 mg kpxnmaZlpmqkcpegep8TWVJDzulw daily 57693Ajefq 2023 2:55pmApril 2023 1:23pmAnxiety Anxiety disorder, unspecifiedOxycodone-Acetaminophen 7.5-325 mg tablet Elurmubaubnp3OXMOSUwhrm times daily as needed for wlyj27797Chnkc pril 2023 1:21pmLumbar back pain Low back pain, unspecifiedSimvastatin 40 mg tabletDiscontinued0.ROUTE.BRCZFYE157 January 31, 2024 7:43amMay 2023 1:40pmTAKE 1 TABLET BY MOUTH EVERY DAY IN THE EVENING FOR 90 DAYSVenlafaxine 37.5 mg capsule,extended release 24hr Discontinued0.ROUTE.CIXVZGP780Pvfgl 2023 7:55amApril 2023 10:35amTAKE 1 CAPSULE BY MOUTH EVERY DAYOxycodone-Acetaminophen 5-325 mg tabletDiscontinued1 TABPOThree times daily as needed for aqus49586Rqgah 2023May 2023 12:15pmLumbar back pain Low back pain, unspecifiedAlprazolam 0.5 mg tabletDiscontinued0.5MGPOTwice daily as needed for coldrpx87469Nndof 2023 11:00pmMay 2023 11:08am Generalized anxiety disorder Generalized anxiety disorderOxycodone-Acetaminophen 5-325 mg tabletDiscontinued1 TABPOTwice daily as needed for ehiz26796Cjn 2023May 2023 12:16pm Lumbar back pain Low back pain, unspecifiedOxycodone-Acetaminophen 5-325 mg tabletDiscontinued1 TABPOTwice daily as needed for vxir49959Qws 2023June 2023 7:32am Lumbar back pain Low back pain, unspecifiedAlprazolam 0.5 mg tabletDiscontinued0.5MGPOTwice daily as needed for llsocpw06763Srg 2023 11:08amJune 2023 7:32am Generalized anxiety disorder Generalized anxiety disorderAlprazolam 0.5 mg tabletDiscontinued0.5MGPOTwice daily as needed for zfxfzpl2007Lxfv 2023 7:31amOctober 2024 1:11pm Generalized anxiety disorder Generalized anxiety disorderOxycodone-Acetaminophen 5-325 mg tabletDiscontinued1 TABPOTwice daily as needed for qufb9925Nbpf 2023September 2024 11:31amLumbar back pain Low back pain, unspecifiedOxybutynin Chloride 5 mg ojclxkWiflye1TNNRNovkc 8 zyami9344Fuqkwxtd 2023 4:53pmComplies with drug therapyGabapentin 300 mg dyfcltjGyzhrb313QOERJzjca695Fyashgy 2024 7:35amPrimary fibromyalgia syndrome FibromyalgiaComplies with drug therapyAlprazolam 1 mg ahaexzKtsxyzgtenka0AHOT Twice dailyFebruary 2023 12:00amFebruary 2023 12:59pmOxycodone- Acetaminophen 7.5-325 mg owunowWsrjvwukshva2ZRFZRMjego times ydhdk4Ryjtqzes 2023 12:00amFebruary 2023 12:59pmAlprazolam 1 mg tabletDiscontinued1 MGPOTwice huvqw72558Pwkslhaa 2023 12:58pmMarch 2023 2:55pmAnxiety Anxiety disorder, unspecifiedOxycodone-Acetaminophen 7.5-325 mg tablet Rxxzevxoklsu5HPAWMQqefe times daily as needed for dgap61832Gmifshwa 2023January 22, 2024 2:55pmLumbar back pain Low back pain, unspecifiedBuspirone 10 mg agrhzyTegmmzfahmyw58RUFYRhzab daily February 08, 2024 11:00pmApril 2023 10:33amGabapentin 300 mg capsule Wfdttpfaopov912JNZMVfvwr times dailyApril 2023 11:00pmSeptember 2024 11:31amMetoprolol Tartrate 25 mg ryniocZcxxvhcsxwsv73LDIVZzvoo dailyApril 2023 11:00pmNovember 2024 1:47pmGabapentin 300 mg cmdxijaAdlzaxkccwsn941KB PODailySeptember 2024 11:30amOctober 2024 7:35amAtorvastatin 40 mg umpqfnJjjamdwuqvja46ISCDEtkcxDfg 2023 11:00pmSeptember 2024 9:01am Atorvastatin (Lipitor) 20 mg cyogtqLbvxkikqpfke16TOQQTznkxIrr 2023 11:00pm August 03, 2025 11:28amAspirin 325 mg jlojocCrqwrv594UEXUFiergFoz 2023 11:00pmComplies with drug therapyAtorvastatin 40 mg ihbrzhHqdpltsfivbq29FR PODailySeptember 2024 8:58amSeptember 2024 11:29amAtorvastatin 80 mg hmhzlhOvpbif26EQIJVxkkn at bedtimeSept2024 11:00pmComplies with drug therapyDapagliflozin Propanediol (Farxiga) 5 mg raxvpkKmnmsssgdtqe3AOGMKiuuh August 02, 2025 11:00pmNovember 2024 1:47pmOxycodone-Acetaminophen 7.5-325 mg jwuukfBlfczyyydrpg8QNMIKUixsz daily as dawkrz5Iszjbfuof 2024 11:00pmOctober 2024 1:11pmAlprazolam 0.5 mg tabletActive0.5MGPOTwice daily as needed for emlswey78277Mjpjnli 2024 1:10pmGeneralized anxiety disorder Generalized anxiety disorderComplies with drug therapyOxycodone-Acetaminophen 7.5-325 mg zuqdbdSrfyhg7PRUCMZinnq daily as needed for gnqk87223Tmjehbo 2024Other chronic pain Lumbar back pain Other chronic pain Low back pain, unspecifiedComplies with drug therapyLevetiracetam 500 mg tablet Ziqeddxgxqrs660MRHBJjdoe dailyMarch 2023 11:00pm[facility] 12:09pm Ropinirole 0.5 mg tabletDiscontinued0.5MGPOFairfield Medical Center 2023 11:00pm[facility] 2023 7:33amTAKE 1 TABLET BY MOUTH 1 TO 3 HOURS BEFORE BEDTIME DAILYSimvastatin 40 mg caelmpOzjgkvvyomsr64JZRZBteesWxfmd 2023 11:00pmFair[facility] Center 2023 7:43amVenlafaxine 37.5 mg capsule,extended release 33znQagbsprttwrk67.5MGPODaily February 01, 2024 11:00pmApril 2023 7:55amLatanoprost (Xalatan) 0.005 % gplevWuyxqn1HDLHEWUO-NTKYBnstfLluxdlsns 9th, 2025 11:00pmComplies with drug therapyHydroxyurea (Hydrea) 500 mg vwctubcNijngv358EIHFBftio dailySept2024 11:00pmComplies with drug therapyLevetiracetam (Keppra) 500 mg tabletActive 500MGPOTwice dailySept2024 11:00pmComplies with drug therapy Ropinirole 0.5 mg tabletActive0.5MGPODailySe2024 11:00pmComplies with drug therapyLisinopril 10 mg bihlbgDsuckjwrvtqo12OIFKScqqkCsnlcxlan 9th, 2025 11:00pmNov2024 1:47pmLisinopril 10 mg qtxhgmRlthhs32UKCRTccos502 September 08, 2025 1:46pmPrimary hypertension Essential (primary) hypertensionComplies with drug therapyMetoprolol Tartrate 25 mg mkrnggRyphnz31WLPKUavwz nfblx5700Jvtynrhu2024 1:46pmPrimary hypertension Essential (primary) hypertensionComplies with drug therapyDapagliflozin Propanediol (Farxiga) 5 mg qwcbleIhgbct5IOOYYkwhq622Vnvjsafm 3rd, 2025 1:46pm Type 2 diabetes mellitus with diabetic chronic kidney disease Type 2 diabetes mellitus with diabetic chronic kidney diseaseComplies with drug therapyApixaban (Eliquis) 5 mg lkkoyuGnnhig7JUARComts dailySeptember 08, 2025 12:00amComplies with drug therapy Immunizations Immunization Event Date Not Given Reason Dose Number 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 Lot Number Reason(s) Given Vaccine Information Statement (VIS) Detail Administration Location influenza, unspecified formulation August 10, 2022 Relevant Diagnostic Tests and/or Laboratory Data Laboratory Results Test Collection Date/Time Result Date/Time Result Interpretation Reference Range Result Comment Performing Site Urine Color August 07, 2025 12:52pm August 07, 2025 2: 28pm lightyellow Vitamin B12 LevelOct2024 1:42pmOct2024 1:68os572 pg/mL 232-1245Performed at: [facility] [id number] Director: Sylvain Ralph PhD, Phone: [phone]-Ittxvjf Vitamin D TotalOct2024 1:42pmOctober 2024 1:42pm33.1 ng/mL<20 ng/mL Vit D mxyrqaolq85-<30 ng/mL Vit D tgybiromczog46-109 ng/mL Vit D sufficient>100 ng/mL Potential ToxicityFerritinOct2024 1:42pmOctober 2024 1:67rp727.0 ng/mL8.0-252.0Iron SaturationOct2024 1:42pm August 28, 2025 1:42pm29.4 %Anion GapOct2024 1:42pmOctober 2024 1:42pm11.8Basophils # (Auto)August 28, 2025 1:42pmOctober 2024 1:42pm0.0 10 3/uL0.0-0.1Urine AppearanceOct2024 12:52pmOctober 2024 2:28pmclearIron LevelAugust 28, 2025 1:42pmOctober 2024 1:42pm 104.0 ug/dL50.0-170.0Albumin/Globulin RatioAugust 28, 2025 1:42pmOctober 2024 1:42pm1.1Basophils (%) (Auto)August 28, 2025 1:42pmOct2024 1:42pm0.4 %0.2-2.0Urine Specific GravityAugust 07, 2025 12:52pmOctober 2024 2:28pm1.010Total Iron Binding CapacityAugust 28, 2025 1:42pmOct2024 1:74ns073.0 ug/dL250.0-450.0AlbuminAugust 28, 2025 1:42pmOctober 2024 1:42pm4.0 g/dL3.4-5.0Eosinophils # (Auto)August 28, 2025 1:42pm August 28, 2025 1:42pm0.3 10 3/uL0.0-0.7Urine pHOctober 2024 12:52pm August 07, 2025 2:28pm6.0Alkaline PhosphataseAugust 28, 2025 1:42pmOctober 2024 1:42pm86 U/R62-036Iizsvcyxnge (%) (Auto)August 28, 2025 1:42pm August 28, 2025 1:42pm3.8 %0.9-7.0Urine Leukocyte EsteraseAugust 07, 2025 12:52pmOctober 2024 2:28pmnegativeAlanine Aminotransferase (ALT/SGPT) August 28, 2025 1:42pmOctober 2024 1:42pm41 U/P76-96SnqdwhqnwnDqvnrhh 2024 1:42pmOctober 2024 1:42pm50.0 %Above high gsopas49.0-48.0Urine NitriteOct2024 12:52pmOctober 2024 2:28pmNegativeAspartate Amino Transf (AST/SGOT)August 28, 2025 1:42pmOctober 2024 1:42pm30 U/L15-37 HemoglobinOctober 2024 1:42pmOctober 2024 1:42pm16.7 g/dLAbove high ozwaxa88.0-16.0Urine ProteinOctober 2024 12:52pmOctober 2024 2:28pm negativeBUN/Creatinine RatioOct2024 1:42pmOctober 2024 1:42pm 26.4Immature Granulocyte # (Auto)August 28, 2025 1:42pmOctober 2024 1:42pm0.02 10 3/uL0.00-0.03Urine Glucose (UA)August 07, 2025 12:52pmOctober 2024 2:08ut079Iqtia Urea NitrogenOctober 2024 1:42pmOctober 2024 1:42pm23.0 mg/dLAbove high normal7.0-18.0Immature Granulocyte % (Auto) August 28, 2025 1:42pmOctober 2024 1:42pm0.3 %0.0-0.5Urine Ketones August 07, 2025 12:52pmOctober 2024 2:28pmnegativeCalcium LevelOctober 2024 1:42pmOctober 2024 1:42pm9.6 mg/dL8.5-10.1Lymphocytes # (Auto) August 28, 2025 1:42pmOctober 2024 1:42pm2.5 10 3/uL1.2-3.8Urine UrobilinogenOctober 2024 12:52pmOctober 2024 2:28pm0.2Chloride Level August 28, 2025 1:42pmOctober 2024 1:60nf948 mmol/X31-205Paubgmpebmk (%) (Auto)August 28, 2025 1:42pmOctober 2024 1:42pm35.3 %20.5-60.0Urine BilirubinOct2024 12:52pmOctober 2024 2:28pmnegativeCarbon Dioxide LevelOct2024 1:42pmOctober 2024 1:42pm29.7 mmol/L21.0-32.0Mean Corpuscular HemoglobinOct2024 1:42pmOctober 2024 1:42pm34.3 pg Above high rplgbi85.7-34.0Urine Occult BloodOctober 2024 12:52pmOctober 2024 2:28pmnegativeCreatinineOct2024 1:42pmOctober 2024 1:42pm0.87 mg/dL0.55-1.02Mean Corpuscular Hemoglobin ConcentOct2024 1:42pmOctober 2024 1:42pm33.4 g/dL29.9-35.2Estimated GFR ()August 28, 2025 1:42pmOct2024 1:42pm>60>=60 mL/min/1.73m 2Mean Corpuscular VolumeAugust 28, 2025 1:42pmOct2024 1:48qc482.7 fLAbove high .0-99.0Estimated GFR (Non- AmericanOct2024 1:42pmOct2024 1:42pm>60>=60 mL/min/1.73m 2Monocytes # (Auto) August 28, 2025 1:42pmOctober 2024 1:42pm0.7 10 3/uL0.3-0.8Globulin August 28, 2025 1:42pmOct2024 1:42pm3.6 g/dLMonocytes (%) (Auto) August 28, 2025 1:42pmOctober 2024 1:42pm9.5 %1.7-12.0Glucose Level August 28, 2025 1:42pmOctober 2024 1:84vd382 mg/wR14-898Yjoq Platelet VolumeOct2024 1:42pmOct2024 1:42pm10.8 fL9.5-13.5Potassium LevelOct2024 1:42pmOctober 2024 1:42pm4.5 mmol/L3.5-5.1 Neutrophils # (Auto)August 28, 2025 1:42pmOctober 2024 1:42pm3.6 10 3/uL1.4-6.5Sodium LevelOct2024 1:42pmOctober 2024 1:44ge605 mmol/K710-548Doyqgyrxzny (%) (Auto)August 28, 2025 1:42pmOctober 2024 1:42pm50.7 %43.0-75.0Total BilirubinOct2024 1:42pmOct2024 1:42pm0.6 mg/dL0.2-1.0Platelet CountOct2024 1:42pmOct2024 1:01gz135 10 3/vJ440-962Qdtby ProteinOct2024 1:42pmOct2024 1:42pm7.6 g/dL6.4-8.2Red Blood CountOct2024 1:42pmOct2024 1:42pm4.87 10 6/uL4.20-5.40Red Cell Distribution WidthOct2024 1:42pm August 28, 2025 1:42pm13.7 %11.0-15.0Corrected White Blood CountOct2024 1:42pmOct2024 1:42pm7.2 10 3/uL4.0-11.0Urine Drug Screen (T) August 07, 2025 1:00pmOctober 2024 3:09pmFinal. TOXASSURE COMP DRUG ANALYSIS,UR= Test Result Flag UnitsDrug Present Alpha-hydroxyalprazolam 38 ng/mg creat Alpha- hydroxyalprazolam is an expected metabolite of alprazolam. Source [...] is an expected metabolite of dextromethorphan, an orsj-yeu-gwnknqr or prescription cough suppressant. Levorphanol is a scheduled prescription medication. Dextrorphan cannot be distinguished from levorphanol by the method used for analysis. Metoprolol AR ESENT Test Result Flag Units Ref Range Creatinine 58 mg/dL >=20 Declared Medications: Medication list was not provided. For clinical consultation, please call . Performed at: [facility] [address] [id number] Director: Latia Castellon [facility], Phone: [phone] Vital Signs Vital Reading Result Reference Range Collection Date/Time Height 64 [in_i] August 07, 2025 12:00imLdqxhx17.31 kgOctober 2024 12:22pmBody Temperature 98 [degF]97.6-99.0October 2024 12:22pmHeart Rate59 /ufa19-876Cvelwqo 2024 12:22pmRespiratory rate16 /kjc93-58Eruoisd 2024 12:22pmOxygen saturation by Pulse ppuxrvaw19 %95-100October 2024 12:22pmBP Vvblkacp291 mm[Hg]100-140October 2024 12:22pmBP Cqjvvbuwu32 mm[Hg]60-100October 2024 12:22pmBMI (Body Mass Index)23.6 kg/a4Bcymjat 2024 12:00mrUeqdbt31 [in_i]September 08, 2025 1:32vrMdffkv80.95 kgNovember 2024 1:32pmBody Kjxswjuryep42.1 [degF]97.6-99.0November 3rd, 2025 1:32pmHeart Rate59 /neg59-895 September 08, 2025 1:32pmRespiratory rate18 /bdp73-37ZbhdueigSeptember 08, 2025 1:32pm Oxygen saturation by Pulse zogdfdzb87 %95-100September 08, 2025 1:32pmBP Ksjkkbbc859 mm[Hg]100-140September 08, 2025 1:32pmBP Wdshqytiq96 mm[Hg]60-100 September 08, 2025 1:32pmBMI (Body Mass Index)24.2 kg/w6QwbzzdboSeptember 08, 2025 1:32pm Advance Directives Advance Directive Response Recorded Date/ Time Advance Directives No August 07, 2025 1:10pm Insurance Providers Guarantor Lesly Steve Address [address] [place] [address]Jsuzyjq Info.Home Phone: Payer Group Member ID Coverage Type Subscriber Relationship to Subscriber Effective Date Expiration Date Medicaid [id number] Rettig Id: [id number] [address] [place] [address] Home Phone: Email: [email or web address] Retired Id: [id number] Rettig Id: [id number] [address] [place] [address] Home Phone: Email: [email or web address] Encounters Encounter Location(s) Arrival/Admit Date Discharge/Departure Date Discharge/Departure Disposition Provider(s) Departed Physician/ Provider Office Visit -[facility] [place] August 07, 2025 1:10pm August 07, 2025 2:09pm Discharged to home care or self care (routine discharge) YOLANDA Miller Departed Clinical -Lab [facility] August 07, 2025 2:00pm August 07, 2025 2:01pm Discharged to home care or self care (routine discharge) YOLANDA Miller Non-patient / Non-visit -[facility] ctober 2024 2:42pm Lakia Sada , MDDeparted Physician/Provider Office Visit-[facility] Family [facility] 2024 1:12pmNovember 2024 2:07pmDischarged to home care or self care (routine discharge)Magdalene Goodrich , JUNC Recent Diagnosis Onset Date Admit Date Essential (primary) hypertension Unknown August 07, 2025 1:10pm Fibromyalgia, primary Unknown August 1:10pm FUENTES (generalized anxiety disorder) Unknown August 07, 2025 1:10pm GERD (gastroesophageal reflux disease) Unknown August 07, 2025 1:10pm Hx of deep venous thrombosis Unknown Aug 1:10pm Hyperlipidemia, unspecified Unknown 2024 1:10pm Left hip pain Unknown August 07 1:10pm Nicotine dependence, cigarettes, uncomplicated U nknown August 07, 2025 1:10pm Other chronic pain Unknown August 07, 2025 1:10pm Type 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 Unknown August 07, 2025 1:10pm UTI symptoms Unknown August 07 1:10pm Bilateral ankle pain Unknown September 1:12pm Essential (primary) hypertension Unknown September 08, 2025 1:12pm FUENTES (generalized anxiety disorder) Unknown September 08, 2025 1:12pm Hx of deep venous thrombosis Unknown Sep 1:12pm Left hip pain Unknown September 08 1:12pm Nicotine dependence, cigarettes, uncomplicated U nknown September 08, 2025 1:12pm Right foot pain Unknown September 08 1:12pm Status post fall Unknown September 08, 2 025 1:12pm Assessments Diagnosis Onset Date Resolution Status Admit Date Essential (primary) hypertension acuteOctober 2024 1:10pmFibromyalgia, primaryacuteOctober 2024 1:10pm FUENTES (generalized anxiety disorder)acuteOctober 2024 1:10pmGERD (gastroesophageal reflux disease)acuteOctober 2024 1:10pmHx of deep venous thrombosisacuteOctober 2024 1:10pmHyperlipidemia, unspecifiedacuteOctober 2024 1:10pmLeft hip painacuteOctober 2024 1:10pmNicotine dependence, cigarettes, uncomplicatedacuteOctober 2025 1:10pmOther chronic painacute August 07, 2025 1:10pmType 2 diabetes mellitus with diabetic chronic kidney diseaseacuteOct2024 1:10pmUTI symptomsacuteOct2024 1:10pm Bilateral ankle painacuteSeptember 08, 2025 1:12pmEssential (primary) hypertensionacuteSeptember 08, 2025 1:12pmGAD (generalized anxiety disorder) acuteSeptember 08, 2025 1:12pmHx of deep venous thrombosisacuteSeptember 08, 2025 1:12pmLeft hip painacuteSeptember 08, 2025 1:12pmNicotine dependence, cigarettes, uncomplicatedacuteSeptember 08, 2025 1:12pmRight foot painacute September 08, 2025 1:12pmStatus post fallacuteSeptember 08, 2025 1:12pm Plan of Treatment Author [facility]dalene [facility]AuthoredOct2024 2:08pmPlease check blood pressure daily and record DASH [...] back pain, right LE radiculopathy discussion about ferry terminal agent mgmt of this, I would like her to see pain mgmt to help us possibly control her pain more with less pain medicaiton sxs likely related to farxiga as her urine dip does not appear to have UTI check xray order US Author Magdalene Goodrich [facility]AuthoredNov2024 2:06pmPlease check blood pressure daily and record DASH diet Limit caffeine Take medication as directed Contact office if chest pain, pressures, dizziness, shortness of breath, swelling in the legs Recommend slow position changes if you develop dizziness with position changes current meds: lisinopril and b raúl current meds: xanax prn med agreement:yes UDS:yes 08/07/25 +xanax present OARRS: yes on benzos for several years hip xray no acute findings with replacement recommended that she follow up with ortho, judith herbert, she was going to think about it she is now scheduled with dr cunningham for a few weeks from now US neg for clot saw sada going to be starting eliquis The patient has been advised of the risks of continued smoking: stroke, HI, all forms of cancer, lung disease, and . Options for quitting: cold turkey, hypnosis, acupuncture, nicotine replacement meds (gum, lozenges, and patches), as well as oral meds: buproprion or varenicline . At this time pt is encouraged to evaluate their goals for wanting to quit smoking, and reach out to provider when ready to start this process check xrays check xray Future Tests Future scheduled test information is unavailable Pending Tests Test Name Ordered Date Scheduled Date XR hip LT min 2V(w/wo pelvis)* August 07, 2025 12:52pm US venous duplex LE LTOctober 2024 12:53pmXR ankle BI 3VNov2024 2:03pmXR foot RT min 3V*September 08, 2025 2:03pmXR tibia fibula RT 2V*September 08, 2025 2:03pm Future Visits Future appointment information is unavailable Future Procedures Future procedure information is unavailable Future Medications Future medication information is unavailable Patient Instructions Patient instructions are unavailable
--- OUTSIDE RECORDS SUMMARY | 2025-09-09 11:13 | XMS_ITS | Encounter Summary ---
Author Organization [facility] Address [address] [place] [address] Care Team Providers Care Faculty Research Physician Name Role Phone Ethan Bonilla MD Primary Care Provider Keira Church NP Unavailable [phone] Encounter Details DateTypeDe[facility] Team (Latest Contact Info)Abddnyactac35/29/2025Orders Only [facility] [address] [place] [address] Magdalene Goodrich NP [address] [facility] [facility] [place] [address] Social History Tobacco UseTypesPacks/DayYears UsedDateSmoking Tobacco: Every DayCigarettes Passive Smoke Exposure: CurrentAlcohol UseStandard Drinks/WeekCommentsNever0 (1 standard drink = 0.6 oz pure alcohol)PHQ-2AnswerDate RecordedPatient Health Questionnaire-2 Qfwxs6804CommentsUnknownSex and Gender InformationValueDate RecordedSex Assigned at BirthNot on fileLegal SexFemale 01/18/2023 7:25 PM EDTGender IdentityNot on fileSexual OrientationNot on file documented as of this encounter Plan of Treatment DateTypeDesiloam springs [facility] hospitalCare Team (Latest Contact Info)Uwqbmannybu57/18/2025 1:00 PM ESTOffice Visit [facility] [address] [place] [address] Travis Moses PA [address] [place] [address] documented as of this encounter Procedures Procedure NamePriorityDate/TimeAssociated DiagnosisCommentsXR HIP 2-3 VIEWS LEFT Vzmzfnm8009/03/2025 1:23 PM EDTdocumented in this encounter Results * XR HIP 2-3 VIEWS LEFT (09/03/2025 1:23 PM EDT)Anatomical RegionLaterality ModalityRadiographic Imaging Narrative Authorizing ProviderResult TypeResult StatusLisa Aichholz NPIMG XR PROCEDURES Final Result documented in this encounter Visit Diagnoses Not on filedocumented in this encounter Additional Health Concerns AssessmentNoted TimePHQ-9 Depression Total Score: 8007/24/2024 4:18 PM EDT documented as of this encounter Care Teams Team MemberRelationshipSpecialtyStart DateEnd Date Ethan Bonilla MD PCP - GeneralFamily Oviaujdi00/10/24 Keira Church NP Nurse PractitionerFamily Pvrvaaav82/10/24documented as of this encounter
--- OUTSIDE RECORDS SUMMARY | 2025-09-09 11:13 | XMS_ITS | Clinical Summary ---
Author Organization [facility] Address [address] [place] [address] Care Team Providers Care Wheat Shipper Name Role Phone Olga Holloway MD Primary Care Provider [phone] Allergies Active AllergyReactionsCriticalityNoted DateCommentsNickelOther,Unknown 02/13/2024enicillinsHives,Rash,TdzznUar19/02/2021henobarbitalOther,RashLow 04/07/2021henytoinOther,Rash,KqitbuuLfw23/02/4520EtvhXivvq70/09/2024 Medications MedicationSigDispense QuantityRefillsLast FilledStart DateEnd DateStatus atorvastatin (Lipitor) 80 mg tablet Take 80 mg by mouth at bedtime.03/25/2024ctive aspirin 325 mg EC tablet Take 325 mg by mouth in the morning.03/07/2024ctive levETIRAcetam (Keppra) 500 mg tablet Take 1 tablet by mouth twice a day.04/10/2021ctive rOPINIRole (Requip) 0.5 mg tablet Take 0.5 mg by mouth.Active Active Problems ProblemNoted DateDiagnosed IdglBiilkid30/28/1302Zngqivlaz59/28/5269F43 gmooavsjjw16/28/2024urrent episode of major depressive disorder without prior qjmbrtr5304/02/20242698Rjkcpq12/28/2024Essential (primary) udnigqcqgixy65/28/2024 Fibromyalgia, umdghrr7104/02/2024GAD (generalized anxiety disorder)04/02/2024GERD (gastroesophageal reflux disease)04/02/20245842Cdvfogvk04/28/2024Hyperlipidemia, eihopvcetex72/28/2024Insomnia, fikljiyfexw32/28/2024Left carpal tunnel syndrome 04/02/2024Lumbar back pain04/02/20248304Hggiqueb37/28/2024Nicotine dependence, cigarettes, bpiwioxpydsop11/28/2024estless leg epdrzdfz38/28/2024phasia 03/21/20243941Nwurquw83/16/3107Kaysni21/16/2024hronic narcotic use04/08/2021 Cigarette zstkus3704/08/2021rug-induced acute pancreatitis without infection or mlkvuniu25/03/2021pigastric pain04/08/2021ge-related osteoporosis without current pathological hfnekrfy56/29/2018Epilepsy, unspecified, not intractable, without status bjybrobqlqh76/29/2018 Social History Tobacco UseTypesPacks/DayYears UsedDateSmoking Tobacco: Every DayCigarettes Smokeless Tobacco: NeverAlcohol UseStandard Drinks/WeekCommentsNot Currently0 (1 standard drink = 0.6 oz pure alcohol)UT Safety & EnvironmentAnswerDate Recorded Fear of Current or Ex-PartnerNot on file02/20/2024Emotionally AbusedNot on file 02/20/2024hysically AbusedNot on file02/20/2024Sexually AbusedNot on file 02/20/2024hysically or Sexually AbusedNot on file02/20/2024Comments UnknownSex and Gender InformationValueDate RecordedSex Assigned at BirthNot on fileLegal HaqYcsyzl87/16/2024 9:26 AM EDTGender IdentityNot on fileSexual OrientationNot on file Last Filed Vital Signs Vital SignReadingTime TakenCommentsBlood Rdfnjtfc331/70004/02/2024 2:05 PM EDT Cyrof8609/28/2024 2:05 PM EDTTemperature--Respiratory Rate--Oxygen Snvcmogoee90% 04/02/2024 2:05 PM EDTInhaled Oxygen Concentration--Bvraks24.7 kg (125 lb) 04/02/2024 2:05 PM GFJYnrpjr421.6 cm (5' 4 )04/02/2024 2:05 PM EDTBody Mass Index21.46004/02/2024 2:05 PM EDT Plan of Treatment Health MaintenanceDue DateLast DoneCommentsMedicare Annual Wellness (AWV) 1950Depression Hwzgqtumk32/14/1960Adult Zkfglvu3406/19/1970Zoster Vaccines (1 of 2)1998Fall Risk Bhvvsaumk65/14/2013Pneumococcal Vaccine: 50+ Years (2 of 2 - [...] complete this topic Insurance [place] [address] Care Teams Team MemberRelationshipSpecialtyStart DateEnd Date Olga Holloway MD [address] [facility] [address] [facility]04/02/24
--- OUTSIDE RECORDS SUMMARY | 2025-09-09 11:13 | XMS_ITS | Clinical Summary ---
Author Organization [facility] Address [id number] [address] [place] [address] Care Team Providers Care Red Hat Open Stack Administrator Name Role Phone Rajendra Jc DO Primary Care Provider Matt labjem Allergies Active AllergyReactionsCriticalityNoted DateCommentsPhenytoin Sodium Extended JlsdLnp83/02/0929WiruojcpxaiSgphJkp82/02/7697DrabpghicsvurYyjaJav29/02/2021 Medications MedicationSigDispense QuantityRefillsLast FilledStart DateEnd DateStatus baclofen [...] DateDiagnosed DateDrug-induced acute pancreatitis without infection or ccykxigl42/03/2021pigastric pain04/08/2021igarette xnpwmf4904/08/2021hronic narcotic use04/08/2021eizuresHypertensionGlaucomaGERD (gastroesophageal reflux disease)Fibromyalgia, primaryEczemaArthritisAnxiety Family History Medical HistoryRelationNameCommentsCOPDMotherDiabetesMotherHeart diseaseSister RelationNameStatusCommentsFatherDeceasedMotherDeceasedSisterAlive Social History Tobacco UseTypesPacks/DayYears UsedDateSmoking Tobacco: Every QnzPglwkvfith646 Smokeless Tobacco: Never Tobacco Cessation:Ready to Q uit: Yes; Counseling Given: Yes Alcohol UseStandard Drinks/WeekCommentsNo0 (1 standard drink = 0.6 oz pure alcohol)ChildcareAnswerDate YbobwpsjVvnycucaxUtajscw13/11/2019EmploymentAnswer Date SayzpyviVdbbxvwhbjSbqglmq86/11/2019Purpose - LifeAnswerDate RecordedPurpose and direction in lrxhWtchgpl53/10/2021CommentsNoSex and Gender InformationValueDate RecordedSex Assigned at BirthNot on fileLegal SexFemale 06/09/2015 5:52 PM EDTGender IdentityNot on fileSexual OrientationNot on file Last Filed Vital Signs Vital SignReadingTime TakenCommentsBlood Pivnyhsi984/52004/10/2021 12:18 PM EDT Dqjou035004/10/2021 12:18 PM YXDYawjohrxdob39.2 ??C (99 ??F)04/10/2021 8:00 AM EDT Respiratory Dpzc875304/10/2021 8:00 AM EDTOxygen Jmyreoyynp84%04/10/2021 8:00 AM EDTInhaled Oxygen Concentration--Dvupsh98.5 kg (153 lb 4.8 oz)04/10/2021 4:00 AM LJRTsfjkx535.6 cm (5' 4 )04/06/2021 2:01 AM EDTBody Mass Index26.31004/06/2021 2:01 AM EDT Plan of Treatment Health MaintenanceDue DateLast DoneCommentsDepression Qcamxsltm38/14/1960Tobacco Einktdgrb12/14/1960DTaP,Tdap and Td Vaccines (1 - Tdap)1967Zoster (Shingles) Vaccine (1 of 2)1998Fall Risk Syhphmavl66/14/2013RSV ( or age 60+ yrs) (1 - 1-dose 75+ series)2023Influenza Tqczmhl9007/07/2025 07/17/2023, 08/10/2022, 08/11/2021, Additional history exists Medical Devices Not on file Insurance * Guarantor: Lesly Steve TypeRelation to PatientDate of BirthPhone Billing AddressPersonal/DraoimMlvr[address] [address] Advance Directives * Full Code (Latest Code Status on File) Date ActivatedDate InactivatedComments04/06/2021 3:19 AM04/10/2021 6:20 PM Care Teams Team MemberRelationshipSpecialtyStart DateEnd Date Rajendra Jc DO PCP - General12/28/17
--- OUTSIDE RECORDS SUMMARY | 2025-09-09 11:14 | XMS_ITS | Clinical Summary ---
Author Organization [facility] Address [address] [place] [address] Care Team Providers Care Blueprint Developer Name Role Phone Ethan Bonilla MD Primary Care Provider [phone] Keira Church LOGISTICS CLERK Unavailable Allergies Active AllergyReactionsCriticalityNoted HcvySktupituNftjcrUrehyqd25/16/2024 Penicillin G Fddvhldadq77/16/2024PenicillinsRash,DciisukHvx92/02/2021 PhenobarbitalRash,FyehsusQul51/02/7054JycaxcvklZvoascb56/16/2024Phenytoin Sodium LorctryhFaneMfk38/02/2021Zinc Edzbvgs3903/21/2024 Medications MedicationSigDispense QuantityRefillsLast FilledStart DateEnd DateStatus hydroxyurea (Hydrea) 500 MG capsule Take 500 mg by mouth Daily.04/23/2024ctive latanoprost (Xalatan) 0.005 % ophthalmic solution INSTILL 1 DROP IN EACH EYE EVERY DAY AT MXWCTKW2805/17/2024ctive aspirin 325 MG EC tablet Indications:Cerebrovascular accident [...] tablet 5Active Active Problems ProblemNoted DateDiagnosed DateUTI xkcdgwiw17/05/2025 Assessment & Plan (04/10/2025 2:51 PM EDT): Will treat with macrobid Fu if not better Type 2 diabetes mellitus with diabetic chronic kidney fbindna5202/25/2025 Assessment & Plan (06/10/2025 6:44 AM EDT): [...] farxiga A1c: 5.8 on 12/20/24 Essential (hemorrhagic) dnonfaxdranrscf86/22/2025 Assessment & Plan (02/25/2025 6:56 AM EDT): [...] 6-8 hours of sleep per night. B12 /28/2024urrent episode of major depressive disorder without prior ecuuibi1004/02/2024 Assessment & Plan (04/10/2025 2:51 PM EDT): At last appt, we discussed if need for grief counseling, she will think about this Current meds: none Overall feels she is doing better Assessment & Plan (02/25/2025 5:24 PM EDT): PHQ 9=12 Current meds: none Discussed if need for grief counseling, she will think about this Jwijdq5704/02/2024Essential (primary) ugxecvxtgnnm66/28/2024 Assessment & Plan (06/10/2025 1:38 PM EDT): [...] Denies SI/HI. Will set patient up with [facility] Fibromyalgia, xsqvhqt5404/02/2024 Assessment & Plan (06/10/2025 6:44 AM EDT): gabapentin Assessment & Plan (02/25/2025 5:23 PM EDT): gabapentin GERD (gastroesophageal reflux disease)04/02/20245851Hhypmubm13/28/2024 Hyperlipidemia, ybigwwhafsw43/28/2024 Assessment & Plan (02/25/2025 6:57 AM EDT): [...] Check Lipid Panel Continue current regimen. Insomnia, hwafhbczovi37/28/2024Left carpal tunnel zyhciqqs65/28/2024Lumbar back pain04/02/2024 Assessment & Plan (04/10/2025 2:52 PM EDT): Takes percocet 7.5 BID Recommend pain mgmt, she is asking to wait about 2 months Is working out social security etc Gwazpxpv39/28/2024Nicotine dependence, cigarettes, puvgbbmmohich12/28/2024 Assessment & Plan (06/10/2025 6:44 AM EDT): The patient has been advised of the risks of continued smoking: stroke, [place], all forms of cancer, lung disease, and [...] of the risks of continued smoking: stroke, [place], all forms of cancer, lung disease, and [...] of the risks of continued smoking: stroke, [place], all forms of cancer, lung disease, and [...] EDT): Smoking cessation counseling provided. Restless leg /28/2024 Assessment & Plan (02/25/2025 6:54 AM EDT): Is currently taking ropinirole Guftod2803/21/2024 Assessment & Plan (07/24/2024 6:48 PM EDT): Had CVA in 02/[address] Barber and Dr. Johnson Cardiolgy Lizifdw5803/21/20242698Ojniwvm52/16/2024 Assessment & Plan (02/25/2025 6:53 AM EDT): Current meds: keppra BID does follow with Neurology Drug-induced acute pancreatitis without infection or necrosis ([facility]) 04/08/2021ge-related osteoporosis without current pathological fracture 09/03/2018 Resolved Problems ProblemNoted DateDiagnosed DateResolved DateType 2 diabetes mellitus with chronic kidney disease, without long-term current use of vojewau5409/23/2024 12/25/2024 Assessment & Plan (09/24/2024 12:58 PM EST): Mjcmmtczyzj10 Assessment & Plan (12/25/2024 2:17 PM EST): A1C 5.8% Currently taking Farxiga 5mg Last Eye Exam done 6 months ago- @ [place], [place] Assessment & Plan (09/24/2024 12:58 PM EST): A1C 6.1% Currently taking Farxiga 5mg Last Eye Exam done 6 months ago- @ [place], [place] Aftercare following joint replacement yktbzvg12Presence of right artificial shoulder joint/2277Kxjokxa15 Unspecified kiuikeygjvu69 Encounters DateTypeDepartmentCare RvigVxkazhmvbur79/29/2025Orders Only [facility] [address] [place] [address] Magdalene Goodrich NP 07/06/2025Refill [facility] [address] [place] [address] Magdalene Goodrich NP Convulsions, unspecified convulsion type (HCC)06/10/2025 1:00 PM EDTOffice Visit [facility] [address] [facility] [place] [address] Magdalene Goodrich NP Essential (primary) hypertension (Primary Dx); Other chronic pain; Fibromyalgia, primary; Type 2 diabetes mellitus with stage 3a chronic kidney disease, without long-term current use of insulin (HCC); Nicotine dependence, cigarettes, uncomplicated; FUENTES (generalized anxiety disorder) ; Restless leg syndrome; Lumbar back pain06/10/2025bstract [facility] [address] [place] [address] Magdalene Goodrich NP 06/10/2025amboo flowsheet [facility] [address] [facility] [place] [address] Magdalene Goodrich NP from Last 3 Months Immunizations ImmunizationAdministration DatesNext DueInfluenza, High Dose Seasonal, Preservative Free07/20/2020,07/13/2018Influenza, High-dose Seasonal, Quadrivalent, Preservative Free08/10/2022,08/11/2021Influenza, Seasonal, Quadrivalent, Gdinordkdf58/11/2023Influenza, seasonal, giuqqygiyt85/14/2024 Influenza, trivalent, nvubtijdgj96/19/2019Novel qlxkaoqdd-L0I2-25, preservative-free10/23/2009Pneumococcal Polysaccharide UCFF7037/05/2014, 04/06/2008Unknown outside pmibpfsbmsfn34/10/2020 Family History Medical HistoryRelationNameCommentsHeart attackBrotherHypertensionBrotherNo Known ProblemsFatherDiabetesMaternal GrandmotherCancerMotherDiabetesMother RelationNameStatusCommentsBrotherFatherMaternal GrandmotherMother Social History Tobacco UseTypesPacks/DayYears UsedDateSmoking Tobacco: Every DayCigarettes Passive Smoke Exposure: Current Tobacco Cessation:Ready to Q uit: Not Asked; Counseling Given: Not Answered Alcohol UseStandard Drinks/WeekCommentsNever0 (1 standard drink = 0.6 oz pure alcohol)PHQ-2AnswerDate RecordedPatient Health Questionnaire-2 Jiogy331 CommentsUnknownSex and Gender InformationValueDate RecordedSex Assigned at BirthNot on fileLegal MowPpmvji03/15/2023 7:25 PM EDTGender IdentityNot on fileSexual OrientationNot on file Last Filed Vital Signs Vital SignReadingTime TakenCommentsBlood Kanghtxz913/8806/10/2025 1:03 PM EDT Henbu351606/10/2025 1:03 PM ENEGaplizbyffb74.7 ??C (98.1 ??F)06/10/2025 1:03 PM EDTRespiratory Twah979106/10/2025 1:03 PM EDTOxygen Yozxwocrfw85%06/10/2025 1:03 PM EDTInhaled Oxygen Concentration--Pjmxtq62.5 kg (140 lb)06/10/2025 1:03 PM EDT Vvqoal403.6 cm (5' 4 )12/25/2024 1:52 PM ESTBody Mass Index24.03012/25/2024 1:52 PM EST Plan of Treatment DateTypeDepartmentCare Team (Latest Contact Info)Xprykdwsyeu12/18/2025 1:00 PM ESTOffice Visit [facility] [address] [place] [address] Travis Moses PA [address] [place] [address] Procedures Procedure NamePriorityDate/TimeAssociated DiagnosisCommentsXR HIP 2-3 VIEWS LEFT Twpgezw7409/03/2025 1:23 PM EDTfrom Last 3 Months Results * XR HIP 2-3 VIEWS LEFT (09/03/2025 1:23 PM EDT)Anatomical RegionLaterality ModalityRadiographic Imaging Narrative Authorizing ProviderResult TypeResult StatusLisa Chaucyndi NPIMG XR PROCEDURES Final Result from Last 3 Months Insurance Care Teams Team MemberRelationshipSpecialtyStart DateEnd Date Ethan Bonilla MD PCP - GeneralFamily Wlxcfouk24/10/24 Keira Church NP Nurse PractitionerFamily Oakugwdg89/10/24
--- NOTE | 2025-09-09 11:15 | XR_ITS ---
The [address] [address] Patient Name: MATEO MANSFIELD MRN: [id number] date: 1950 Sex: F Assigned Patient Location: [facility] Current Patient Location: [facility] Accession/Order Number: [id number] Exam Date: 09/09/2025 11:20 Report Date: 09/09/2025 14:39 At the request of: BHARATI HALEY NP Procedure: XR foot RT min 3V XR foot RT min 3V 09/09/2025 11:29 AM SIGNS AND SYMPTOMS: ^Right Foot Pain, Bilateral Ankle Pain, Fall PROTOCOL: Frontal, lateral, and oblique radiographs of the right foot COMPARISON: None FINDINGS: The bones are in anatomic alignment. There is mild narrowing of the first metatarsophalangeal joint. The joint spaces of the toes are preserved otherwise. No soft tissue swelling. No acute displaced fracture. Mild Achilles surface calcaneus spurring is noted. There is mild spurring at the talonavicular joint. XR/XR foot RT min 3V IMPRESSION: No fracture or dislocation. Degenerative changes are noted as above. Impression dictated by: Johnson Toribio M.D. 09/09/2025 2:39 PM Dictation Location: [place] [address] Electronically authenticated by: [id number] Y Date: 09/09/2025 14:39
--- NOTE | 2025-09-09 11:15 | XR_ITS ---
[place] [address] Patient Name: MATEO MANSFIELD MRN: [id number] date: 1950 Sex: F Assigned Patient Location: [facility] Current Patient Location: [facility] Accession/Order Number: [id number] Exam Date: 09/09/2025 11:20 Report Date: 09/09/2025 14:37 At the request of: BHARATI HALEY NP Procedure: XR tibia fibula RT 2V XR tibia fibula RT 2V 09/09/2025 11:29 AM SIGNS AND SYMPTOMS: ^Bilateral Ankle Pain, Fall PROTOCOL: Frontal and lateral radiograph of the right tibia and fibula COMPARISON: None FINDINGS: The bones are in anatomic alignment. There is no evidence of acute displaced fracture. No significant soft tissue swelling. XR/XR tibia fibula RT 2V IMPRESSION: No acute displaced fracture. Impression dictated by: Johnson Toribio M.D. 09/09/2025 2:37 PM Dictation Location: [place] [address] Electronically authenticated by: [id number] Y Date: 09/09/2025 14:37
--- NOTE | 2025-09-09 11:15 | XR_ITS ---
The [place] [id number] Patient Name: MATEO MANSFIELD MRN: [id number] date: 1950 Sex: F Assigned Patient Location: [facility] Current Patient Location: 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 There is narrowing of the tibiotalar joint space on the left. There is evidence of a remote healed fracture of the lateral malleolus on the left. No acute displaced fracture. Mild Achilles surface calcaneal spurring is noted. Degenerative changes are noted at the right talonavicular joint. XR/XR ankle LEXA min 3V IMPRESSION: No acute displaced fracture. There is a remote posttraumatic deformity of the lateral malleolus on the left. 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 Additional degenerative changes are noted as above. Impression dictated by: Johnson Toribio M.D. 09/09/2025 2:40 PM Dictation Location: [place] [address] Electronically authenticated by: [id number] Y Date: 09/09/2025 14:40
--- OUTSIDE RECORDS SUMMARY | 2025-09-09 11:25 | XMS_ITS | CCD ---
Author Organization [facility] Care Team Providers Care Shirt Cleaner Name Role Phone Robert Schwartz Unavailable Fernando Silverio Unavailable EFREN, DR ROBERT Rodriguez Admitting Unavailable SCHWARTZ, DR ROBERT Rodriguez Attending Unavailable SCHWARTZ, DR ROBERT Rodriguez Primary Care Unavailable WEST, DR CHAITANYA King Consulting Unavailable SCHWARTZ, DR ROBERT Rodriguez Consulting Unavailable CUETO, WICHO Consulting Unavailable SCHWARTZ, DR ROBERT Rodriguez Admitting Unavailable SCHWARTZ, DR ROBERT Rodriguez Attending Unavailable SCHWARTZ, DR ROBRET Rodriguez Primary Care Unavailable ZIEBJIMBO, DR RAIN [...] SCHWARTZ, DR ROBERT Rodriguez Primary Care Unavailable TORONTO, DR CHAITANYA King Consulting Unavailable SCHWARTZ, DR ROBERT Rodriguez Consulting Unavailable CYNDIE FRANKEL Referring Unavailable SAIRA CAMPBELL Primary Care Unavailable Neto Hooper Attending DO Bob Andrew Referring Unava ilable JARON JOHNSON Attending Unavailable Robert Schwartz MD Primary Care Provider Ethan Bonilla MD Primary Care Provider [phone] Lynnette MARTINEZ, Andrew Unavailable SAIRA CAMPBELL Primary Care Unavailable SAIRA CAMPBELL Referring Unavailable SAIRA CAMPBELL Primary Care Unavailable SAIRA CAMPBELL Referring Unavailable SAIRA CAMPBELL Primary Care Unavailable Saira Campbell DO Primary Care Provider Andrew Church NP Unavailable ANDREW CHURCH Attending Unavailabl e AICHHOLMAGDALENE Angeles Attending Unavailable AICHJEAN CARLOS, MAGDALENE Attending Unavailable MAGDALENE GOODRICH Attending Unavailable ANDREW CHURCH Attending Unavailabl e ANDREW CHURCH Attending Unavailabl e ChauhholMagdalene Ling Primary Care Provider Magdalene Mendes Attending Provider [phone] Magdalene Goodrich Attending Unavailable Magdalene Goodrich Admitting Unavailable Allergies Allergy ClassificationReported Allergen(s)Allergy TypeDate of OnsetReaction(s) Facility (17 sources)nickel; Translations: [NICKEL]Drug Xkxnedf87-11-0134[facility]jbwBer[facility] (13 sources)PenicillinDrug AllergyButler Hospital brick&mobile Other (20 sources)PHENobarbital; Translations: [PHENOBARBITAL]Drug Qgazjqo55-56-7996 [facility] (20 sources)Phenytoin; Translations: [PHENYTOIN]Drug Jcyyxov97-36-7416EpwtppoKindred Hospital Lima (17 sources)Zinc; Translations: [ZINC]Drug Resohth58-81-6661KiigwfhBerger Hospital (1 source)benzoin resinDrug Brwwrvm83-26-8619MwrMer[facility] (1 source)LeucineDrug AllergyMercy Health St. [facility] (7 sources)Penicillins; Translations: [PENICILLINS]Drug allergy (disorder) 11-75-3078CrtplPnhMercy Health St. [facility] (1 source)PhenytoinDrug Xuevyxb36-48-3390OfwMercy Health St. [facility] (8 sources)Allergies ReconciledPropensity to adverse reactionsLafayette Regional Health Center [facility] Other (8 sources)Penicillin G Benzathine & ProcDrug allergyButler Hospital brick&mobile Other (8 sources)PHENobarbital *HYPNOTICS/SEDATIVES/SLEEP DISORDERPropensity to adverse reactionsLafayette Regional Health Center [facility] Other (8 sources)patient allergy list reviewed by nurse or physiciaPropensity to adverse umgccqvbm65-19-2611Lsqoqov:[employer] Other (20 sources)Penicillin G BenzathineAllergy to ukuxfrmqm34-72-9644RsmqbLqscbbgjmLakeHealth Beachwood [facility] Center (3 sources)PHENobarbital *HYPNOTICS/SEDATAllergy to jybhlujtd93-69-1683YivttSelect Medical Specialty Hospital - Columbus SouthComment on above:Free Text Allergy: PHENobarbital *HYPNOTICS/SEDATIVES/SLEEP DISORDER (20 sources)Phenytoin; Translations: [PHENYTOIN SODIUM EXTENDED]Drug Allergy 66-60-8219OwlhReoUmgwou Repository (20 sources)nickel sulfateDrug Mauopvx84-49-9724BhtwtpyEFQS Healthcare (20 sources)PenicillinsDrug Mssdbihdiay73-50-5319Bazx, UnknownChildren's Mercy Hospital (20 sources)Zinc AcetateDrug Phyuwst60-69-1347KJ[facility] (2 sources)PenicillinsPropensity to adverse reactions to zmjk14-24-9019Xbof [facility] Medications Current Medications MedicationDrug Class(es)DatesSig (Normalized)Sig (Original)acetaminophen 325 mg / oxyCODONE hydrochloride 7.5 mg oral tablet (20 sources)Opioid AgonistStart: 08-03-2025 End: 08-83-2181bipt 1 tablet by mouth twice daily as needed for painStart: 11-15-2024 End: 59-51-4585gieg 1 tablet by mouth in the morningoxyCODONE-acetaminophen (Percocet) 7.5-325 MG tablet Indications: Lumbar back pain Take 1 tablet bymouth in the morning and 1 tablet before bedtime. 60 tablet 06/10/2025 07/10/2025 ActiveStart: 31-11-7671yejr 1 tablet by mouth in the morningoxyCODONE- acetaminophen (Percocet) 7.5-325 MG tablet Indications: Lumbar back pain Take 1 tablet bymouth in the morning and 1 tablet before bedtime. Do not start before November 15, 2024. 60 tablet 11/15/2024 ActiveStart: 10-16-2024 End: 99-95-4616nfzh 1 tablet by mouth in the morningoxyCODONE-acetaminophen (Percocet) 7.5-325 MG tablet Indications: Lumbar back pain Take 1 tablet bymouth in the morning and 1 tablet before bedtime. 60 tablet 10/16/2024 11/13/2024 Discontinued (Reorder)Start: 08-12-2024 End: 75-30-8805gyrp 1 tablet by mouth in the morningoxyCODONE-acetaminophen (Percocet) 7.5-325 MG tablet Indications: Lumbar back pain Take 1 tablet bymouth in the morning and 1 tablet before bedtime. 60 tablet 09/11/2024 10/14/2024 Discontinued (Reorder)Start: 03-23-2024 End: 61-02-9578jxen 1 tablet by mouth twice daily as needed for painOxycodone- Acetaminophen 5-325 mg tablet Discontinued 1 TAB PO Twice daily as needed for pain 14 April 23, 2024 August 03, 2025 12:31pmStart: 03-20-2024 End: 91-76-3123wjlm 1 tablet by mouth twice daily as needed for painOxycodone- Acetaminophen 5-325 mg tablet Discontinued 1 TAB PO Twice daily as needed for pain 60 March 20, 2024 March 20, 2024 1:16pmStart: 03-20-2024 End: 43-44-0441jqur 1 tablet by mouth twice daily as needed for painOxycodone- Acetaminophen 5-325 mg tablet Discontinued 1 TAB PO Twice daily as needed for pain 60 March 20, 2024 March 20, 2024 1:16pmStart: 02-22-2024 End: 50-84-4276eqlg 1 tablet by mouth three times daily as needed for pain Oxycodone-Acetaminophen 5-325 mg tablet Discontinued 1 TAB PO Three times daily as needed for pain 90 February 22, 2024 March 20, 2024 1:15pmStart: 12-22-2023 End: 18-44-9070kavb 1 tablet by mouth three times daily as needed for pain Oxycodone-Acetaminophen 7.5-325 mg tablet Discontinued 1 TAB PO Three times daily as needed for pain 90 December 22, 2023 January 22, 2024 3:55pmStart: 71-04-7040skjr 1 tablet by mouth three times daily as neededPercocet 7.5-325 MG 1 tablet Orally three times daily, as needed for 30 days Oct, Active Start: 47-89-7859bmmn 1 tablet by mouth three times daily as neededPercocet 7.5- 325 MG 1 tablet Orally three times daily, as needed for 30 days Sep, ActiveStart: 80-16-6477tyku 1 tablet by mouth three times daily as needed Percocet 7.5-325 MG 1 tablet Orally three times daily, as needed for 30 days Aug, ActiveStart: 72-68-3435qtkc 1 tablet by mouth three times daily as neededPercocet 7.5-325 MG 1 tablet Orally three times daily, as needed for 30 days Jul, ActiveStart: 31-58-0168aejj 1 tablet by mouth three times daily as neededPercocet 7.5-325 MG 1 tablet Orally three times daily, as needed for 30 days Jun, ActiveStart: 97-75-4649jgxc 1 tablet by mouth three times daily as neededPercocet 7.5-325 MG 1 tablet Orally three times daily, as needed for 30 days May, ActiveStart: 04-28-2023 End: 41-35-2345Jgkfy: 02-51-2410aooj 1 tablet by mouth three times daily as neededPercocet 7.5-325 MG 1 tablet Orally three times daily, as needed for 30 days Feb, ActiveStart: 69-26-3810vvqs 1 tablet by mouth three times daily as neededPercocet 7.5-325 MG 1 tablet Orally three times daily, as needed for 30 days Jan, Activetake 1 tablet by mouth every eight hours as needed for painoxyCODONE-acetaminophen (PERCOCET) 7.5-325 mg per tablet Take 1 tablet by mouth every 8 (eight) hours as needed for pain. ActiveALPRAZolam 0.5 mg oral tablet (20 sources)BenzodiazepineStart: 02-22-2024 End: 90-62-8165ivrk 1 tablet by mouth twice daily as needed for anxietyStart: 01-24-2023 End: 35-67-9706owag 1 tablet by mouth twice dailyAlprazolam 1 mg tablet Discontinued 1 MG PO Twice daily 60 30 December 22, 2023 1:58pm January 22, 2024 3:55pmaspirin 325 mg oral tablet (20 sources)Platelet Aggregation Inhibitor, Nonsteroidal Anti-inflammatory Drug Start: 03-07-2024 End: 06-40-4402bsil 1 tablet by mouth once dailybaclofen 20 [...] (20 sources)Sodium-Glucose Cotransporter 2 InhibitorStart: 09-16-2024 End: 83-93-8916ijmj 1 tablet by mouth once dailygabapentin 300 mg oral capsule (20 sources)Anti-epileptic AgentStart: 63-82-0108giux 1 capsule by mouth once dailyStart: 05-18-2025 End: 45-28-7916ftyi 1 capsule by mouth once daily, then take 1 capsule by mouth once dailygabapentin (Neurontin) 300 MG capsule Indications: Neuropathic Pain Take 1 capsule (300 mg) by mouth Daily Take 1 capsule (300 mg) by mouth Daily 30 capsule 2 05/18/2025 ActiveStart: 08-12-2024 End: 31-95-6219cjem 1 capsule by mouth once daily, then take 1 capsule by mouth once dailygabapentin (Neurontin) 300 MG capsule Indications: Neuropathic Pain Take 1 capsule (300 mg) by mouth Daily Take 1 capsule (300 mg) by mouth Daily 30 capsule 2 02/19/2025 ActiveStart: 02-09-2024 End: 26-56-3636olcr 1 capsule by mouth three times dailyGabapentin 300 mg capsule Discontinued 300 MG PO Three times daily February 09, 2024 12:00am August 03, 2025 12:31pmStart: 57-84-8199pffd 1 capsule by mouth three times dailyGabapentin 300 MG 1 capsule Orally 3 times per day for 30 day(s) Nov, Active End: 61-84-3082qwmb 1 capsule by mouth once dailygabapentin (Neurontin) 300 MG capsule Indications: Neuropathic Pain Take 300 mg by mouth Daily 08/06/2024 Discontinued (Reorder)hydroxyurea 500 mg oral capsule (20 sources)AntimetaboliteStart: 64-28-2724zezl 1 capsule by mouth twice daily Start: 56-29-6285nmpm 1 capsule by mouth once dailyhydroxyurea (Hydrea) 500 MG capsule Take 500 mg by mouth Daily. 04/23/2024 ActiveHyoscyamine (5 sources)Hyoscyamine Activelatanoprost 0.05 mg/ml ophthalmic solution (20 sources)Prostaglandin AnalogStart: 43-27-8218pcoh 1 drop(s) into the eye(s) once dailyStart: 61-54-5319ssae 1 drop(s) into the eye(s) once daily at bedtime latanoprost (Xalatan) 0.005 % ophthalmic solution INSTILL 1 DROP IN EACH EYE EVERY DAY AT BEDTIME 05/17/2024 ActivelevETIRAcetam 500 mg oral tablet (20 sources)Start: 87-81-3947bmmt 1 tablet by mouth twice dailyStart: 07-06-2025 take 1 tablet by mouth at bedtimelevETIRAcetam (Keppra) 500 MG tablet Indications: Convulsions, unspecified convulsion type (HCC) TAKE 1 TABLET (500 MG) BY MOUTH IN THE MORNING AND BEFORE BEDTIME 180 tablet 07/06/2025 Active Start: 01-15-2024 End: 50-59-3510sjmd 1 tablet by mouth twice dailyLevetiracetam 500 mg tablet Discontinued 0 .ROUTE .COMPLEX 180 January 15, 2024 1:09pm March 19, 2024 2:27pm TAKE 1 TABLET BY MOUTH TWICE A DAYStart: 04-10-2021 End: 32-99-6762qwgw 1 tablet by mouth twice dailyLevetiracetam 500 mg tablet Discontinued 500 MG PO Twice daily January 15, 2024 12:00am January 1:09pmlisinopril 10 mg oral tablet (5 sources)Angiotensin Converting Enzyme InhibitorStart: 06-10-2025 End: 06-23-7450yjec 1 tablet by mouth once dailymetoprolol tartrate 25 mg oral tablet (20 sources)beta-Adrenergic BlockerStart: 02-06-2025 End: 25-90-9158qhtw 1 tablet by mouth at bedtimemetoprolol tartrate (Lopressor) 25 MG tablet Indications: Cerebrovascular accident (CVA), unspecified mechanism (HCC) TAKE 1 TABLET (25 MG) BY MOUTH IN THE MORNING AND BEFORE BEDTIME 180 tablet 1 03/06/2025 ActiveStart: 02-09-2024 End: 94-43-7580mwwi 1 tablet by mouth in the morningmetoprolol [...] oral capsule (2 sources)Nitrofuran AntibacterialStart: 04-10-2025 End: 99-90-4439tasv 1 capsule by mouth in the morningnitrofurantoin, macrocrystal-monohydrate, (Macrobid) 100 MG capsule Indications: UTI symptoms Take 1 capsule (100 mg) by mouth in the morning and 1 capsule (100 mg) before bedtime. Do all this for 7 days. 14 capsule 04/10/2025 04/17/2025 Active Ondansetron (5 sources)Serotonin-3 Receptor AntagonistOndansetron Activeoxybutynin chloride 5 mg oral tablet (20 sources)Cholinergic Muscarinic AntagonistStart: 12-20-2023 End: 92-01-2183upgc 1 tablet by mouth every eight hourstake 1 tablet by mouth three times daily as neededoxyBUTYnin Chloride 5 MG TAKE 1 TABLET BY MOUTH THREE TIMES A DAY NEEDED for 90 ActiverOPINIRole 0.5 mg oral tablet (20 sources)Nonergot Dopamine AgonistStart: 08-12-2024 End: 09-84-8324ezvl 1 tablet by mouth once dailyStart: 01-19-2024 End: 36-82-4631bmnk 1 tablet by mouth once daily at bedtimeRopinirole 0.5 mg tablet Discontinued 0 .ROUTE .COMPLEX 90 January 19, 2024 8:33am February 13, 2024 11:34am TAKE 1 TABLET BY MOUTH 1 TO 3 HOURS BEFORE BEDTIME DAILY 90Start: 01-19-2024 End: 90-89-3726xiun 1 tablet by mouth once daily at bedtimeRopinirole 0.5 mg tablet Discontinued 0.5 MG PO January 19, 2024 12:00am January 19, 2024 8:33am TAKE 1 TABLET BY MOUTH 1 TO 3 HOURS BEFORE BEDTIME DAILY Completed/Discontinued Medications MedicationDrug Class(es)DatesSig (Normalized)Sig (Original)atorvastatin 40 mg oral tablet (20 sources)HMG-CoA Reductase InhibitorStart: 07-16-2025 End: 22-75-5780opdx 2 tablets by mouth once dailyAtorvastatin 40 mg tablet Discontinued 80 MG PO Daily July 16, 2025 9:58am August 03, 2025 12:29pmStart: 03-25-2024 End: 30-86-1901uhan 1 tablet by mouth once daily at bedtimeStart: 03-19-2024 End: 08-07-9370iclt 1 tablet by mouth once dailyAtorvastatin (Lipitor) 20 mg tablet Discontinued 20 MG PO Daily March 19, 2024 12:00am August 03, 2025 12:28pmStart: 03-19-2024 End: 70-36-9843lkcy 1 tablet by mouth once dailyAtorvastatin 40 mg tablet Discontinued 40 MG PO Daily March 19, 2024 12:00am July 16, 2025 10:01am busPIRone hydrochloride 10 mg oral tablet (20 sources)Start: 11-13-2024 End: 99-33-6075xxmg 1 tablet by mouth in the morningbusPIRone (Buspar) 10 MG tablet Take 10 mg by mouth in the morning and 10 mg before bedtime. 11/13/2024 02/25/2025 Discontinued (Therapy completed)Start: 05-19-2024 End: 83-11-1723yjcx 1 tablet by mouth in the morningbusPIRone (Buspar) 10 MG tablet Take 10 mg by mouth in the morning and 10 mg before bedtime. 05/19/2024 07/24/2024 Discontinued (Ineffective)Start: 02-09-2024 End: 38-13-0101ghnw 1 tablet by mouth twice dailyBuspirone 10 mg tablet Discontinued 10 MG PO Twice daily February 09, 2024 12:00am February 13, 2024 11: 33amtake 1 tablet by mouth twice dailybusPIRone HCl 10 MG TAKE 1 TABLET BY MOUTH TWICE A DAY for 90 Activesimvastatin 40 mg oral tablet (20 sources)HMG-CoA Reductase InhibitorStart: 01-31-2024 End: 01-97-5320bwak 1 tablet by mouth once daily in the eveningSimvastatin 40 mg tablet Discontinued 0 .ROUTE .COMPLEX 90 January 31, 2024 8:43am March 19, 2024 2:40pm TAKE 1 TABLET BY MOUTH EVERY DAY IN THE EVENING FOR 90 DAYSStart: 01-30-2024 End: 87-96-1605fllc 1 tablet by mouth once dailySimvastatin 40 mg tablet Discontinued 40 MG PO Daily January 30, 2024 12:00am January 31, 2024 8:43am Start: 86-84-3427qcqx 1 tablet by mouth every twenty-four hoursSimvastatin 40 MG 1 tablet in the evening Orally Once a day for 90 days Feb, Plmziv78 hr venlafaxine 37.5 mg extended release oral capsule (14 sources)Serotonin and Norepinephrine Reuptake InhibitorStart: 02-06-2024 End: 68-45-1145peuw 1 capsule by mouth once dailyVenlafaxine 37.5 mg capsule,extended release 24hr Discontinued 0 .ROUTE .COMPLEX 90 February 06, 2024 8:55am February 13, 2024 11:35am TAKE 1 CAPSULE BY MOUTH EVERY DAYStart: 02-02-2024 End: 43-51-9223bwvk 1 capsule by mouth once dailyVenlafaxine 37.5 mg capsule,extended release 24hr Discontinued 37.5 MG PO Daily February 02, 2024 12: 00am February 06, 2024 8:55amtake 1 capsule by mouth once dailyVenlafaxine HCl ER 37.5 MG TAKE 1 CAPSULE BY MOUTH EVERY DAY for 90 Active Problems Active Problems Problem ClassificationProblemDateDocumented DateEpisodic/ChronicAcute cerebrovascular disease (20 sources)Cerebrovascular accident; Translations: [Cerebral infarction, unspecified]Onset: 210642-53-3026UaxbsrbUwfog cerebrovascular disease (1 source)Acute cerebrovascular diseaseOnset: 44-22-8588Dotlqiuk reactions (20 sources)Eczema; Translations: [Dermatitis, unspecified]Onset: 04-02-2024 06-82-4138XhdzylpyVpllkhy disorders (20 sources)Mixed anxiety and depressive disorder; Translations: [Anxiety disorder, unspecified]Onset: 04-02-2024 Resolved: 10-97-2077FwnujkrZwrushm dysrhythmias (4 sources)Bradycardia, unspecified; Translations: [Bradycardia]Onset: 67-33-3250DdfervzzKxqkybk obstructive pulmonary disease and bronchiectasis (20 sources)Bronchitis; Translations: [Bronchitis, not specified as acute or chronic]EpisodicDiabetes mellitus with complications (20 sources)Type 2 diabetes mellitus; Translations: [Type 2 diabetes mellitus with diabetic chronic kidney disease]Onset: 09-23-2024 Resolved: 407165-70-0360EwhyegmYenbcubzv of lipid metabolism (20 sources)Hyperlipidemia; Translations: [Other hyperlipidemia]Onset: 39-01-9673GcfilcdDiyodhypkzykov and diverticulitis (8 sources)Diverticulitis of colon; Translations: [Diverticulitis of intestine, part unspecified, without perforation or abscess without bleeding]Onset: 63-80-4895JhjmtoaTbvjlsup; convulsions (11 sources)Epilepsy; Translations: [Epilepsy, unspecified, not intractable, without status epilepticus]Onset: 520600-88-3499DbjpecxMapxqiob; convulsions (20 sources)Seizure; Translations: [Unspecified convulsions]Onset: 03-21-2024 Resolved: 403568-36-3827OkdihvjkTgvwheqrxz disorders (20 sources)Gastroesophageal reflux disease; Translations: [Gastro-esophageal reflux disease without esophagitis]Onset: 238574-01-6458RrafnqsWovjtpqmu hypertension (20 sources)Essential hypertension; Translations: [Essential (primary) hypertension]Onset: 42-42-7472CejhkmwBdutsstnanuuukbo hemorrhage (1 source)MelenaEpisodicGenitourinary symptoms and ill-defined conditions (20 sources)Dysuria; Translations: [Dysuria]Onset: 477029-90-4724Jwuhjlig Glaucoma (20 sources)Glaucoma; Translations: [Unspecified glaucoma]Onset: 04-02-2024 90-60-8581UfdycsyOadmjaht; including migraine (20 sources)Migraine; Translations: [Migraine, unspecified, not intractable, without status migrainosus]Onset: 954192-33-6458XkqkyziNpkwtirp; including migraine (8 sources)Headache; Translations: [Headache, unspecified]EpisodicMalaise and fatigue (2 sources)Fatigue; Translations: [Other fatigue]58-03-3807AkoerhjcWbia disorders (20 sources)Major depression, single episode; Translations: [Major depressive disorder, single episode, unspecified]Onset: hronic Neoplasms of unspecified nature or uncertain behavior (20 sources)Essential thrombocythemia; Translations: [Essential (hemorrhagic) thrombocythemia]Onset: 748179-80-2626XpjfqifZnpcqfiig of unspecified nature or uncertain behavior (2 sources)Thrombocytosis; Translations: [Thrombocythemia]21-39-1698Mpokxiby Nutritional deficiencies (20 sources)Vitamin B12 deficiency (non anemic); Translations: [Deficiency of other specified B group vitamins]Onset: 21-51-7827QjzociuyCferbyhyaevmxf (20 sources)Osteoarthritis of left hip joint; Translations: [Unilateral primary osteoarthritis, left hip]Onset: 17-06-9181OadbqmoPaksvirtylzt (20 sources)Primary osteoporosis; Translations: [Age-related osteoporosis without current pathological fracture]Onset: 535443-87-0473VaiqmvzAgusj and ill-defined cerebrovascular disease (1 source)Other cerebrovascular vasospasm and vasoconstriction; Translations: [Other cerebrovascular vasospasm and vasoconstriction]Onset: 32-84-8457Ofbnhnu Other circulatory disease (8 sources)Elevated blood-pressure reading without diagnosis of hypertension; Translations: [Elevated blood-pressure reading, without diagnosis of hypertension]EpisodicOther circulatory disease (2 sources)Low blood pressure; Translations: [Hypotension, unspecified] 44-94-8090ZyetruibErdlr connective tissue disease (20 sources)Primary fibromyalgia syndrome; Translations: [Fibromyalgia]Onset: 973226-25-6484XaaqgmscIqzey connective tissue disease (20 sources)Tear of right rotator cuff; Translations: [Unspecified rotator cuff tear or rupture of right shoulder, not specified as traumatic]Onset: 07-24-2024 10-74-5212LhgyxtzeJwnzw hereditary and degenerative nervous system conditions (20 sources)Restless legs; Translations: [Restless legs syndrome]Onset: 069097-86-3837QdubtxfDkiau nervous system disorders (20 sources)Carpal tunnel syndrome of left wrist; Translations: [Carpal tunnel syndrome, left upper limb]Onset: 447127-41-5099HddxuqyHvsml nervous system disorders (1 source)Carpal tunnel syndrome, left upper limbChronicOther nervous system disorders (20 sources)Aphasia; Translations: [Aphasia]Onset: 695950-81-4716Qpjekmi Other nervous system disorders (20 sources)Chronic pain; Translations: [Other chronic pain]Onset: 07-24-2024 62-72-1091KehcpnvPpmcc non-traumatic joint disorders (2 sources)Pain in left hip; Translations: [PAIN IN LEFT HIP]Onset: 02-17-2023 EpisodicOther non-traumatic joint disorders (8 sources)Pain in right hip joint; Translations: [Pain in right hip]Episodic Other non-traumatic joint disorders (8 sources)Arthralgia of the pelvic region and thigh; Translations: [Pain in left hip]EpisodicOther non-traumatic joint disorders (4 sources)Hip pain; Translations: [Pain in left hip]93-00-1332Sjakkbyl Pancreatic disorders (not diabetes) (20 sources)Drug-induced acute pancreatitis; Translations: [Drug induced acute pancreatitis without necrosis orinfection]Onset: 178477-78-2691Wlufisji Phlebitis; thrombophlebitis and thromboembolism (4 sources)H/O: Deep vein thrombosis; Translations: [Personal history of other venous thrombosis and embolism]88-32-6644JxytgrkmTujgiddm codes; unclassified (13 sources)Acute insomnia; Translations: [Insomnia, unspecified]Episodic Residual codes; unclassified (20 sources)Insomnia; Translations: [Insomnia, unspecified]Onset: 04-02-2024 61-78-8873MyhoweykDgyfecib codes; unclassified (8 sources)Body mass index 20-24 - normal; Translations: [Body mass index (BMI) 23.0-23.9, adult]EpisodicSpondylosis; intervertebral disc disorders; other back problems (2 sources)Other intervertebral disc degeneration, lumbar region; Translations: [Spondylosis without myelopathy or radiculopathy, lumbar region]Onset: 89-33-9265LzqgazyVzpntbktgjn; intervertebral disc disorders; other back problems (20 sources)Sciatica; Translations: [Sciatica, right side]Onset: 10-22-2022 43-82-0456DaqyjhguVoditpjko-related disorders (20 sources)Nicotine dependence, cigarettes, uncomplicated; Translations: [Tobacco user]Onset: 36-78-1996GxrteayZeqeckuzgxco (8 sources)Exposure to acute respiratory syndrome coronavirus 2; Translations: [Contact with and (suspected) exposure to COVID-19]Urinary tract infections (16 sources)Urinary tract infectious disease; Translations: [Urinary tract infection, site not specified]Onset: 84-77-8332Vwafbyyv Past or Other Problems Problem ClassificationProblemDateDocumented DateEpisodic/ChronicAbdominal pain (20 sources)Abdominal pain; Translations: [Unspecified abdominal pain]Onset: 11-24-0613QgcxrestIohtpgyt mellitus without complication (20 sources)Abnormal glucose level; Translations: [Other abnormal glucose]Onset: 10-23-2018 Resolved: 746636-96-0447IgaqborfZqcigxpq; including migraine (13 sources)Headache; including migraine; Translations: [Left temporal headache] Inflammatory diseases of female pelvic organs (8 sources)Acute vaginitis; Translations: [Acute vaginitis]Onset: 11-22-2018 EpisodicMood disorders (20 sources)Mood disordersOnset: Other non-traumatic joint disorders (4 sources)Pain in right hip; Translations: [PAIN IN RIGHT HIP]Onset: 10-18-2022 EpisodicOther non-traumatic joint disorders (8 sources)Shoulder joint pain; Translations: [Pain in right shoulder]Onset: 46-12-4611OcaqsptyZgactihr codes; unclassified (1 source)Pain, unspecified; Translations: [Pain, unspecified]Onset: 02-12-2024 EpisodicSubstance-related disorders (2 sources)Narcotic drug user; Translations: [Opioid use, unspecified, uncomplicated]Onset: 504239-12-6803Gfnxuohn Results Test NameValueInterpretationReference RangeFacilityToxassure, Urineon 08-07-2025 Toxassure, Urine SummaryFINALNormal.The [facility] Physician GroupComment on above:Result Comment: TOXASSURE COMP [...] is an expected metabolite of dextromethorphan, an ebmb-axr-fnigciz or prescription cough suppressant. Levorphanol is a scheduled prescription medication. Dextrorphan cannot be distinguished from levorphanol by the method used for analysis. Metoprolol PRESENT Test Result Flag Units Ref Range Creatinine 58 mg/dL >=20 Declared Medications: Medication list was not provided. For clinical consultation, please call . Performed at: [facility] [address] [id number] Manufacturing Engineer Machining: Latia Castellon [facility], Phone: [phone] PERFORMED BY: [address] [place] [address] PATHOLOGIST EDUCATION MANAGERS DANIELLA ARRIAGA M.D.Performed By: #### TOXASSURE #### [facility] ,ALL CBC WITH AUTO DIFFon 79-51-8761FRPXTRLCR ABSOLUTE HGRE2YJEN Healthcare Basophils/100 WBC (Bld)0.5 %0.2 - 2.0 %[facility] HealthcareEosinophils/100 WBC (Bld) 2.7 %0.9 - 7.0 %[facility] HealthcareErythrocyte distribution width (RBC) [Ratio]13.4 %11.0 - 15.0 %[facility] HealthcareHematocrit (Bld) [Volume fraction]48 %36.0 - 48.0 % [facility] HospitalHemoglobin (Bld) [Mass/Vol]16 g/dL12.0 - 16.0 g/dLChildren's Mercy Hospital IMMATURE GRANULOCYTES ABS AUTO0.02NOSaint Louis University HospitalImmature granulocytes/100 WBC (Bld)0.3 %0.0 - 0.5 %[facility] HospitalInterpretation and review of laboratory resultsAbUniversity of Michigan HealthLYMPHOCYTES ABSOLUTE NGHI2YWMYSaint Louis University Hospital Lymphocytes/100 WBC (Bld)32.4 %20.5 - 60.0 %[facility] CenterH (RBC) [Entitic mass]34.9 ewNqqc65.7 - 34.0 pgCameron Regional Medical CenterHC (RBC) [Mass/Vol]33.3 g/dL29.9 - 35.2 g/dLCameron Regional Medical CenterV (RBC) [Entitic vol]104.6 tMGhpt23.0 - 99.0 fLChildren's Mercy HospitalMONOCYTES ABSOLUTE AUTO0.5[facility] HospitalMonocytes/100 WBC (Bld)8.2 % 1.7 - 12.0 %[facility] HospitalNEUTROPHILS ABSOLUTE AUTO3.5[facility] Neutrophils/100 WBC (Bld)55.9 %43.0 - 75.0 %[facility] HospitalPlatelet mean volume (Bld) [Entitic vol]10.8 fL9.5 - 13.5 fLChildren's Mercy HospitalTB EO #0.2[facility] [id number] [facility] RBC4.59NOMS [facility] WBC6.2NBarnes-[facility] CLINISYNCNOSaint Louis University HospitalXlblqrjmdnGtH6j (Bld) [Mass fraction]on 08-20-2073Pveilfzhhjhlez and review of laboratory resultsAbnoAurora Medical Center in SummitLaboratory - Hematology and Cell countson 34-54-6854YqG9q (Bld) [Mass fraction]5.8 %[facility] HospitalUrinalysis macro (dipstick) panel (U)on 90-10-5398Mcrqodcyd, UA NegativeNegative - 4(70) +++ mg/dLLAYTON HOSPITAL HealthcareBlood, UANegativeNegative - 50 Hunter/mcLNOAK HealthcareClarity, UAClearNOAK HealthcareColor, UAYellowNOAK HealthcareGlucose, UAPositiveNegative - 2000(110) ++++ mg/dLChildren's [facility]cy Hospital Comment on above:250Interpretation and review of laboratory resultsAbnormalLAYTON HOSPITAL HealthcareKetones, UANegativeNegative - 160(16) ++++ mg/dLChildren's Mercy Hospital Leukocytes, UATraceNegative - 500+++ Fara/mcLNOSaint Louis University HospitalNitrite, UANegative Negative - PositiveNOAK HealthcarepH, UA65 - 9NOAK HealthcareProtein, UANegative Negative - 2000(20) ++++ mg/dLNOAK HealthcareSpec Grav, UA1.0151 - 1.03NOAK HealthcareUrobilinogen, UA0.20.2 - 12 mg/dLNOHawthorn [facility] HealthcareALL CBC WITH AUTO DIFFon 46-71-6433SSCOWXSNM ABSOLUTE ZSDB8ANLTSaint Louis University HospitalBasophils/100 WBC (Bld)0.2 %0.2 - 2.0 %NOMCedar County Memorial HospitalEosinophils/100 WBC (Bld)2.2 %0.9 - 7.0 %[facility] HospitalErythrocyte distribution width (RBC) [Ratio]16.1 %High11.0 - 15.0 %[facility] HospitalHematocrit (Bld) [Volume fraction]45.9 %36.0 - 48.0 %[facility] HospitalHemoglobin (Bld) [Mass/Vol]15.3 g/dL12.0 - 16.0 g/dLChildren's [facility]cy Hospital IMMATURE GRANULOCYTES ABS AUTO0.02NOSaint Louis University HospitalImmature granulocytes/100 WBC (Bld)0.2 %0.0 - 0.5 %[facility] HealthcareInterpretation and review of laboratory resultsAbnormAdvanced Surgical HospitalLYMPHOCYTES ABSOLUTE AUTO2.6NOMS [facility] Lymphocytes/100 WBC (Bld)31.4 %20.5 - 60.0 %[facility] CenterH (RBC) [Entitic mass]33.1 pg26.7 - 34.0 pgCameron Regional Medical CenterHC (RBC) [Mass/Vol]33.3 g/dL29.9 - 35.2 g/dLCameron Regional Medical CenterV (RBC) [Entitic vol]99.4 mKQelk64.0 - 99.0 fLChildren's Mercy HospitalMONOCYTES ABSOLUTE AUTO0.6NOSaint Louis University HospitalMonocytes/100 WBC (Bld)6.9 % 1.7 - 12.0 %[facility] HospitalNEUTROPHILS ABSOLUTE AUTO4.8NOSaint Louis University Hospital Neutrophils/100 WBC (Bld)59.1 %43.0 - 75.0 %[facility] HospitalPlatelet mean volume (Bld) [Entitic vol]10.6 fL9.5 - 13.5 fLChildren's Mercy HospitalTB EO #0.2[facility] [id number] [facility] RBC4.62NOMS [facility] WBC8.2NBarnes-[facility] CLINISYNCChildren's Mercy HospitalALL CBC WITH AUTO DIFFon 63-27-3182BKFZWDOXZ ABSOLUTE OLVS1EUKASaint Louis University HospitalBasophils/100 WBC (Bld)0.5 %0.2 - 2.0 %[facility] Eosinophils/100 WBC (Bld)5.2 %0.9 - 7.0 %[facility] HospitalErythrocyte distribution width (RBC) [Ratio]12.4 %11.0 - 15.0 %[facility] HospitalHematocrit (Bld) [Volume fraction]49.7 %High36.0 - 48.0 %[facility] HospitalHemoglobin (Bld) [Mass/Vol]16.2 g/aWGmrp50.0 - 16.0 g/dLChildren's Mercy HospitalIMMATURE GRANULOCYTES ABS AUTO0.01NOSaint Louis University HospitalImmature granulocytes/100 WBC (Bld)0.1 %0.0 - 0.5 %[facility] Interpretation and review of laboratory resultsAbnormAdvanced Surgical Hospital LYMPHOCYTES ABSOLUTE FHRT0IYMQSaint Louis University HospitalLymphocytes/100 WBC (Bld)25 %20.5 - 60.0 %[facility] CenterH (RBC) [Entitic mass]33.3 pg26.7 - 34.0 pgCameron Regional Medical CenterHC (RBC) [Mass/Vol]32.6 g/dL29.9 - 35.2 g/dLCameron Regional Medical CenterV (RBC) [Entitic vol]102.3 uHUrkw43.0 - 99.0 fLChildren's Mercy HospitalMONOCYTES ABSOLUTE AUTO 0.7NOMS [facility] CenterMonocytes/100 WBC (Bld)8.5 %1.7 - 12.0 %[facility] NEUTROPHILS ABSOLUTE AUTO4.8NOSaint Louis University HospitalNeutrophils/100 WBC (Bld)60.7 %43.0 - 75.0 %[facility] HealthcarePlatelet mean volume (Bld) [Entitic vol]10.7 fL9.5 - 13.5 fLChildren's Mercy HospitalTBH EO #0.4NOMS [facility] CenterTB [id number] Luke's East Hospital RBC 4.86NOMS [facility] CenterTB WBC7.9NOAK HealthcareCLINISYNCNOMS HealthcareALL CBC WITH AUTO DIFFon 19-49-6716MWBBGEWVL ABSOLUTE UIGP7XKYU HealthcareBasophils/100 WBC (Bld)0.6 %0.2 - 2.0 %NOM HealthcareEosinophils/100 WBC (Bld)3.5 %0.9 - 7.0 % [facility] HospitalErythrocyte distribution width (RBC) [Ratio]14.7 %11.0 - 15.0 % [facility] HospitalHematocrit (Bld) [Volume fraction]42.2 %36.0 - 48.0 %[facility] HospitalHemoglobin (Bld) [Mass/Vol]13.9 g/dL12.0 - 16.0 g/dLChildren's [facility]cy Hospital IMMATURE GRANULOCYTES ABS AUTO0.01NOSaint Louis University HospitalImmature granulocytes/100 WBC (Bld)0.1 %0.0 - 0.5 %[facility] HospitalInterpretation and review of laboratory resultsAbnormalChildren's Mercy HospitalLYMPHOCYTES ABSOLUTE AUTO2.5NOMS [facility] Lymphocytes/100 WBC (Bld)36.5 %20.5 - 60.0 %[facility] CenterH (RBC) [Entitic mass]35 zuBtir07.7 - 34.0 pgCameron Regional Medical CenterHC (RBC) [Mass/Vol]32.9 g/dL29.9 - 35.2 g/dLCameron Regional Medical CenterV (RBC) [Entitic vol]106.3 jIXxcw82.0 - 99.0 fLChildren's Mercy HospitalMONOCYTES ABSOLUTE AUTO0.6NOMS [facility] CenterMonocytes/100 WBC (Bld)8.4 % 1.7 - 12.0 %[facility] HospitalNEUTROPHILS ABSOLUTE AUTO3.5NOMS [facility] Neutrophils/100 WBC (Bld)50.9 %43.0 - 75.0 %[facility] HospitalPlatelet mean volume (Bld) [Entitic vol]10.7 fL9.5 - 13.[address]LMercy [facility], [facility] EO #0.2NOMS [facility] [id number] [facility] RBC3.97LowNOMS [facility] CenterTB WBC6.8NOAK Healthcare CLINISYNCChildren's Mercy HospitalALL CBC WITH AUTO DIFFon 96-03-0289IQNVCZDGK ABSOLUTE AUTO0.0NOMS [facility] CenterBasophils/100 WBC (Bld)0.5 %0.2 - 2.0 %[facility] Eosinophils/100 WBC (Bld)3.6 %0.9 - 7.0 %[facility] HospitalErythrocyte distribution width (RBC) [Ratio]16.5 %High11.0 - 15.0 %[facility] HospitalHematocrit (Bld) [Volume fraction]41.6 %36.0 - 48.0 %[facility] HospitalHemoglobin (Bld) [Mass/Vol] 14.1 g/dL12.0 - 16.0 g/dLChildren's Mercy HospitalIMMATURE GRANULOCYTES ABS AUTO0.01NOSaint Louis University HospitalImmature granulocytes/100 WBC (Bld)0.1 %0.0 - 0.5 %[facility] Interpretation and review of laboratory resultsAbnormalChildren's [facility] Hospital LYMPHOCYTES ABSOLUTE AUTO2.6NOMS [facility] CenterLymphocytes/100 WBC (Bld)36.0 %20.5 - 60.0 %[facility] CenterH (RBC) [Entitic mass]34.9 vnZhaa69.7 - 34.0 pgSaint [facility] (RBC) [Mass/Vol]33.9 g/dL29.9 - 35.2 g/dLCameron Regional Medical CenterV (RBC) [Entitic vol]103.0 cIDvir50.0 - 99.0 fLChildren's Mercy HospitalMONOCYTES ABSOLUTE AUTO 0.5NOMS [facility] CenterMonocytes/100 WBC (Bld)7.3 %1.7 - 12.0 %[facility] NEUTROPHILS ABSOLUTE AUTO3.8NOMS [facility] CenterNeutrophils/100 WBC (Bld)52.5 %43.0 - 75.0 %[facility] HospitalPlatelet mean volume (Bld) [Entitic vol]10.5 fL9.5 - 13.[address]LMercy [address], [facility] EO #0.3NOMS [facility] [id number] [facility] RBC4.04 LowNOSaint Luke's East Hospital WBC7.3NOSaint Louis University HospitalCLINISYNCNOMS HealthcareOffice Visit on 05-29-6326Vhgnia-up [id number] Lesly Steve 1950 F Date Provider Department Center 04/02/2024 271-JARON JOHNSON TALA [facility] Family History Family history unknown: Yes Level of Service:[address] [place] OFFICE/OUTPATIENT NEW MODERATE MDM 45 MINUTESNormal [facility] HospitalOrders Onlyon 90-20-5541Xesuil [id number] Lesly Steve 1950 F Date Provider Department Center 03/29/2024 [id number], HISTORICAL TALA [facility] No family history on fileNormalUniMedina HospitalReferrals Officeon 92-43-1892Acljbrksk Office [id number]#1.00TIFFNoMemorial HospitalBasophils Auto (Bld) [#/Vol]on 37-68-2492Wybcnlpdo (Bld) [#/Vol]0.0 10 3/uL0.0-0.1FAultman Alliance Community HospitalBasophils/100 WBC Auto (Bld)on 99-64-1852Xtynqzbmx/100 WBC (Bld)0.3 %0.2-2.0[facility] Cholesterol in LDL Calc [Mass/Vol]on 22-25-7623Mcexfpgblur in LDL [Mass/Vol] 141.0 mg/dLHolzer HospitalComment on above:<100 mg/dl ZLTVRBN387-007 mg/dl NEAR OR ABOVE IXFQLJX597-226 mg/dl BORDERLINE LCJA440-204 mg/dl HIGH>190 mg/dl VERY HIGHCholesterol in VLDL Calc [Mass/Vol]on 02-09-2024 Cholesterol in VLDL [Mass/Vol]25.2 mg/dLHolzer Hospital Eosinophils/100 WBC Auto (Bld)on 30-05-5838Wvlflmbwrtp/100 WBC (Bld)2.7 %0.9-7.0 [facility] HospitalErythrocyte distribution width Auto (RBC) [Ratio]on 77-44-7267Odasrfieqck distribution width (RBC) [Ratio]14.0 %11.0-15.0 [facility] HospitalEstimated glomerular filtration rate (GFR) non- Americanon 13-14-9810BHQ/1.73 sq M.predicted among non-blacks MDRD (S/P/Bld) [Vol rate/Area]59 mL/min/{1.73_m2}>=60Hol[facility] HospitalHematocrit Auto (Bld) [Volume fraction]on 78-75-9621Sekhjhfrjy (Bld) [Volume fraction]45.5 %36.0-48.0[facility] HospitalHemoglobin [Mass/volume] in Bloodon 39-93-0044Bpddjtzgec (Bld) [Mass/Vol]14.6 g/dL12.0-16.0 [facility] HospitalLaboratory - Chemistry and Chemistry - challengeon 11-56-1353Dfgutqc [Mass/Vol]9.6 mg/dL8.5-10.1FAultman Alliance Community HospitalChloride [Moles/Vol]103 mmol/E31-160QuafjuwwiHolzer HospitalCholesterol [Mass/Vol]200 mg/dL<=200[facility] Cholesterol in HDL [Mass/Vol]34 mg/vT59-68NzawjdopkHolzer Hospital Comment on above:> or =60 mg/dl - LOW CARDIOVASCULAR RISK<40 mg/dl - HIGH CARDIOVASCULAR RISKCO2 [Moles/Vol]26.1 mmol/L21.0-32.0[facility] HospitalCreatinine [Mass/Vol]0.93 mg/dL0.55-1.02[facility] GFR/1.73 sq M.predicted MDRD (S/P/Bld) [Vol rate/Area]mL/min/{1.73_m2}>=60 [facility] HospitalGlucose [Mass/Vol]116 mg/uJ60-031AlbbecggcHolzer HospitalPotassium [Moles/Vol]4.2 mmol/L3.5-5.1FBerger Hospitalodium [Moles/Vol]139 mmol/J931-124MbddhcpwzHolzer HospitalTriglyceride [Mass/Vol]126 mg/dL<=150Hol[facility] HospitalUrea nitrogen [Mass/Vol]22.0 mg/dL7.0-18.0[facility] HospitalUrea nitrogen/Creatinine [Mass ratio]23.7 mg/mgHolzer Hospital Laboratory - Hematology and Cell countson 08-68-4999Ddimaktr granulocytes/100 WBC (Bld)0.3 %0.0-0.5FAultman Alliance Community HospitalLeukocytes [#/volume] corrected for nucleated erythrocytes in Blood by Automated counon 47-72-8093IWZ corrected for nucl RBC Auto (Bld) [#/Vol]12.2 10 3/uL4.0-11.0[facility] HospitalLymphocytes Auto (Bld) [#/Vol]on 34-76-8690Weyrholfurt (Bld) [#/Vol]2.0 10 3/uL1.2-3.8[facility] HospitalLymphocytes/100 WBC Auto (Bld)on 20-80-2083Dllhjcehyck/100 WBC (Bld)16.4 %20.5-60.0[facility] HospitalH Auto (RBC) [Entitic mass]on 71-89-0979IDW (RBC) [Entitic mass]29.4 pg26.7-34.0[facility] HospitalMCHC Auto (RBC) [Mass/Vol]on 70-99-3970IETL (RBC) [Mass/Vol]32.1 g/dL29.9-35.2FAultman Alliance Community HospitalMCV Auto (RBC) [Entitic vol]on 63-87-7568KLP (RBC) [Entitic vol] 91.7 fL81.0-99.0[facility] HospitalMonocytes Auto (Bld) [#/Vol]on 18-46-3210Skmbjhrfw (Bld) [#/Vol]0.9 10 3/uL0.3-0.8[facility] HospitalMonocytes/100 WBC Auto (Bld)on 06-90-3213Inujoqxhd/100 WBC (Bld)7.7 % 1.7-12.0[facility] HospitalNeutrophils Auto (Bld) [#/Vol]on 85-86-6699Hkauxgvovot (Bld) [#/Vol]8.9 10 3/uL1.4-6.5FAultman Alliance Community HospitalNeutrophils/100 WBC Auto (Bld)on 86-37-9608Dcfdcvrwzim/100 WBC (Bld)72.6 % 43.0-75.0[facility] HospitalNo Panel Informationon 02-09-2024 Eosinophils # (Auto)0.3 10 3/uL0.0-0.7FAultman Alliance Community HospitalImmature Granulocyte # (Auto)0.04 10 3/uL0.00-0.03[facility] Platelet mean volume Auto (Bld) [Entitic vol]on 36-81-4364Vifjeomr mean volume (Bld) [Entitic vol]10.9 fL9.5-13.5FAultman Alliance Community HospitalPlatelets Auto (Bld) [#/Vol]on 62-58-0812Uykviqmaq (Bld) [#/Vol]546 10 3/eA394-662 [facility] HospitalRBC Auto (Bld) [#/Vol]on 24-01-1521BEL (Bld) [#/Vol]4.96 10 6/uL4.20-5.40Bucyrus Community Hospitalerum or plasma anion gap determinationon 32-23-5608Sobxw gap [Moles/Vol]14.1 mmol/LFBerger Hospitalerum or plasma total cholesterol/high density lipoprotein (HDL) cholesterol mass maury 41-81-9172Ifcoffxtcul.total/Cholesterol in HDL [Mass ratio]5.9 {ratio}[facility] HospitalComment on above:3.3 - 4.4 LOW RISK4.4 - 7.1 AVERAGE RISK7.1 - 11.0 MODERATE RISK>11.0 HIGH RISKAutomated epithelial cells count in urine sediment (number/area)on 19-99-4446Mayfvomnms cells Auto (Urine sed) [#/Area]MODERATE #/LPFNONE/RARE [facility] HospitalAutomated leukocytes count in urine sediment (number/area)on 75-29-7556EIJ Auto (Urine sed) [#/Area]0-2 #/HPF0-2FAultman Alliance Community HospitalAutomated urine specific gravity by refractometryon 36-99-9235Erakzvnd gravity Refractometry automated (U) [Rel density]1.025 1.005-1.025Hol[facility] HospitalBasophils Auto (Bld) [#/Vol]on 74-15-6701Ojspkewca (Bld) [#/Vol]0.1 10 3/uL0.0-0.1FAultman Alliance Community HospitalBasophils/100 WBC Auto (Bld)on 47-99-4345Wsmovhfah/100 WBC (Bld)0.4 % 0.2-2.0[facility] HospitalBilirubin Auto test strip (U) [Mass/Vol] on 88-75-7456Qqefdxqxr (U) [Mass/Vol]NegativeNEGATIVEHolzer HospitalCasts typing in urine sediment by light microscopyon 80-06-7795Swxdq LM Nom (Urine sed)NONE SEEN #/LPFNONE SEENHolzer HospitalColor Auto (U)on 57-83-7913Ehcae (U)YELLOWYELLOWHolzer Hospital Eosinophils/100 WBC Auto (Bld)on 23-19-9503Huhubvhuhog/100 WBC (Bld)1.9 %0.9-7.0 [facility] HospitalErythrocyte distribution width Auto (RBC) [Ratio]on 79-51-3160Maisfojuopi distribution width (RBC) [Ratio]13.9 %11.0-15.0 [facility] HospitalEstimated glomerular filtration rate (GFR) non- Americanon 11-27-5924JQW/1.73 sq M.predicted among non-blacks MDRD (S/P/Bld) [Vol rate/Area]51 mL/min/{1.73_m2}>=60Hol[facility] HospitalGlobulin Calc (S) [Mass/Vol]on 37-49-1020Nuesgmju (S) [Mass/Vol]3.7 g/dL [facility] HospitalHematocrit Auto (Bld) [Volume fraction]on 73-11-4698Fkakpurokz (Bld) [Volume fraction]48.8 %36.0-48.0[facility] HospitalHemoglobin [Mass/volume] in Bloodon 71-88-4390Qgrgztwebt (Bld) [Mass/Vol]15.8 g/dL12.0-16.0[facility] HospitalINR in Platelet poor plasma by Coagulation assayon 78-35-3975BGB Coag (PPP) [Relative time]1.05 {INR}[facility] HospitalComment on above:DESIRED INR:2.0-3.0 CONDITIONS NOT LISTED BELOW2.5-3.5 FOR PROSTHETIC HEART VALVE REPLACEMENT2.5-3.5 RECURRENT THROMBOSISKetones Auto test strip (U) [Mass/Vol]on 48-93-3185Tvuxucz (U) [Mass/Vol]NegativeNEGATIVEHolzer HospitalLaboratory - Chemistry and Chemistry - challengeon 13-35-9219Zqampyo [Mass/Vol]4.0 g/dL 3.4-5.0[facility] HospitalALP [Catalytic activity/Vol]80 U/L46-116 [facility] HospitalALT [Catalytic activity/Vol]25 U/L14-59 [facility] HospitalAST [Catalytic activity/Vol]31 U/L15-37 [facility] HospitalBilirubin [Mass/Vol]0.4 mg/dL0.2-1.0[facility] HospitalCalcium [Mass/Vol]9.5 mg/dL8.5-10.1FAultman Alliance Community HospitalChloride [Moles/Vol]100 mmol/R98-508WmaptzutcHolzer HospitalCO2 [Moles/Vol]28.0 mmol/L21.0-32.0[facility] Creatinine [Mass/Vol]1.06 mg/dL0.55-1.02[facility] GFR/1.73 sq M.predicted MDRD (S/P/Bld) [Vol rate/Area]mL/min/{1.73_m2}>=60 [facility] HospitalGlucose [Mass/Vol]105 mg/rP14-781DstydznqyHolzer HospitalPotassium [Moles/Vol]3.7 mmol/L3.5-5.1FAultman Alliance Community HospitalProtein [Mass/Vol]7.7 g/dL6.4-8.2FAultman [facility] Hospital Sodium [Moles/Vol]137 mmol/X657-024YcmcorfkjHolzer HospitalUrea nitrogen [Mass/Vol]19.0 mg/dL7.0-18.0[facility] HospitalUrea nitrogen/Creatinine [Mass ratio]17.9 mg/mgHolzer Hospital Laboratory - Hematology and Cell countson 50-30-1871Kenwwvxb granulocytes/100 WBC (Bld)0.2 %0.0-0.5FAultman Alliance Community HospitalLaboratory - Microbiology and Antimicrobial susceptibilityOrdered By: Robert Schwartz on 76-63-8134Usxsibgx identified Cx Nom (U)[facility] HospitalLeukocytes [#/volume] corrected for nucleated erythrocytes in Blood by Automated counon 07-48-3641TML corrected for nucl RBC Auto (Bld) [#/Vol]13.4 10 3/uL4.0-11.0[facility] HospitalLymphocytes Auto (Bld) [#/Vol]on 49-76-5343Dzmbkoemuxv (Bld) [#/Vol]2.7 10 3/uL1.2-3.8[facility] HospitalLymphocytes/100 WBC Auto (Bld)on 45-09-0920Ysmgydktjtu/100 WBC (Bld)20.3 %20.5-60.0[facility] HospitalH Auto (RBC) [Entitic mass]on 34-13-4232VLL (RBC) [Entitic mass]30.2 pg26.7-34.0[facility] HospitalMCHC Auto (RBC) [Mass/Vol]on 46-16-1050AELM (RBC) [Mass/Vol]32.4 g/dL29.9-35.2FAultman Alliance Community HospitalMCV Auto (RBC) [Entitic vol]on 87-21-2815YXM (RBC) [Entitic vol] 93.1 fL81.0-99.0[facility] HospitalMonocytes Auto (Bld) [#/Vol]on 76-15-6027Haimthqvg (Bld) [#/Vol]1.1 10 3/uL0.3-0.8[facility] HospitalMonocytes/100 WBC Auto (Bld)on 40-83-7300Fwluoegxe/100 WBC (Bld)8.1 % 1.7-12.0[facility] HospitalMucus LM Ql (Urine sed)on 02-08-2024 Mucus Ql (Urine sed)TRACENONE SEENHolzer HospitalNeutrophils Auto (Bld) [#/Vol]on 83-99-0106Xhwdejmvdiz (Bld) [#/Vol]9.3 10 3/uL1.4-6.5 [facility] HospitalNeutrophils/100 WBC Auto (Bld)on 02-08-2024 Neutrophils/100 WBC (Bld)69.1 %43.0-75.0[facility] HospitalNo Panel Informationon 07-36-3523Zhfcw Culture ReflexedClinton Memorial HospitalUrine Microscopic ReviewClinton Memorial Hospital Eosinophils # (Auto)0.3 10 3/uL0.0-0.7FAultman Alliance Community HospitalImmature Granulocyte # (Auto)0.03 10 3/uL0.00-0.03[facility] Platelet mean volume Auto (Bld) [Entitic vol]on 02-26-9346Zazeyekn mean volume (Bld) [Entitic vol]10.5 fL9.5-13.5FAultman Alliance Community HospitalPlatelets Auto (Bld) [#/Vol]on 01-01-6137Wydndgqkv (Bld) [#/Vol]585 10 3/sD410-070 [facility] HospitalProtein Auto test strip (U) [Mass/Vol]on 64-98-6985Syfepvk (U) [Mass/Vol]TRACE mg/dLNEG/TRACEHolzer HospitalProthrombin time (PT)on 14-64-5703CP Coag (PPP) [Time]11.1 s9.0-11.6 [facility] HospitalRBC Auto (Bld) [#/Vol]on 97-76-6507YEL (Bld) [#/Vol]5.24 10 6/uL4.20-5.40Bu[facility] Community Hospitalerum or plasma albumin/globulin mass ratioon 52-40-2603Uzkrqzc/Globulin [Mass ratio]1.1 {ratio} [facility] Hospitalerum or plasma anion gap determinationon 77-72-0255Bwuzb gap [Moles/Vol]12.7 mmol/LFAultman Alliance Community Hospital Specific gravity Auto test strip (U) [Rel density]on 71-01-3547Nnanrwyf gravity (U) [Rel density]CLEARCLEARFAultman Alliance Community HospitalUrine bacteria detection by automated methodon 45-85-7521Kbwdlswd Auto Ql (U)MODERATE #/HPFHONORHEALTH SONORAN CROSS[facility] MEDICAL CENTERE [facility] Barberton CampusUrine glucose measurement by test strip (mass/volume)on 37-30-5276Jlmyapa Test strip (U) [Mass/Vol]NegativeNEGAshtabula County Medical CenterUrine hemoglobin detection by automated test stripon 25-53-9854Jydlwsfaea Auto test strip Ql (U)NegativeNEGOhio State Harding HospitalUrine nitrite detection by automated test stripon 73-02-7079Vgegerc Auto test strip Ql (U)SMALLNEGOhio State Harding HospitalNitrite Auto test strip Ql (U)NegativeNEGOhio State Harding HospitalUrine sediment crystal identification by light microscopyon 02-08-2024 Crystals LM Nom (Urine sed)None Seen #/HPFOhioHealthUrine sediment leukocyte count by microscopy (number/high power field)on 55-26-8570TFC LM.HPF (Urine sed) [#/Area]10-20 #/HPFHONORHEALTH SONORAN CROSSING MEDICAL CENTERE [facility] Barberton CampusUrobilinogen Auto test strip (U) [Mass/Vol]on 02-08-2024 Urobilinogen Qn (U)0.2 {Toshia'U}/dL0.2-1.0[facility] HospitalpH Auto test strip (U)on 49-71-3461oR (U)5.5 [pH]5.0-9.0[facility] HospitalCBC AUTO DIFFon [id number] #0.0 103/ulNormal0.0-0.1The [facility] HealthComment on above:Performed By: #### CBC #### [facility] [address] [address] [address] Thierno Vegaphils/100 WBC (Bld)0.4 %Normal0.2-2.0[facility] Comment on above:Performed By: #### CBC #### [facility] [address] [address] [address] Thierno Soliz #0.5 103/ulNormal0.0-0.7The [facility] HealthComment on above: Performed By: #### CBC #### [facility] [address] [place] [address] Dr. Thierno Vanessaosinophils/100 WBC (Bld)4.8 %Normal0.9-7.0[facility] Comment on above:Performed By: #### CBC #### [facility] [address] [place] [address] Dr. Thierno Vanessarythrocyte distribution width (RBC) [Ratio]13.2 %Zwfdju61.0-15.0 The [facility] HealthComment on above:Performed By: #### CBC #### [facility] [address] [place] [address] Dr. Thierno PhippsHematocrit (Bld) [Volume fraction]48.4 %Critically high36.0-48.0 The [facility] HealthComment on above:Performed By: #### CBC #### [facility] [address] [place] [address] Dr. Thierno PhippsHemoglobin (Bld) [Mass/Vol]15.8 g/dJDdszkj13.0-16.0The [facility] HealthComment on above:Performed By: #### CBC #### [facility] [address] [place] [address] Dr. Thierno Gamez #0.03 10e3/ulNormal0.00-0.03The [facility] HealthComment on above:Performed By: #### CBC #### [facility] [address] [place] [address] Dr. Thierno Gamez %0.3 %Normal0.0-0.5The [facility] HealthComment on above: Performed By: #### CBC #### [facility] [address] [place] [address] Dr. Thierno MercerMPH #2.9 103/ulNormal1.2-3.8The [facility] HealthComment on above:Performed By: #### CBC #### [facility] [address] [place] [address] Dr. Thierno Mercermphocytes/100 WBC (Bld)30.1 %Ssqrvp93.5-60.0The [facility] HealthComment on above:Performed By: #### CBC #### [facility] [address] [place] [address] Dr. Thierno Green DIFF REQNONormalThe Wilson HealthComment on above: Performed By: #### CBC #### [facility] [address] [place] [address] Dr. Thierno Martinez (RBC) [Entitic mass]29.6 geYqbuuy34.7-34.0The [facility] HealthComment on above:Performed By: #### CBC #### [facility] [address] [place] [address] Dr. Thierno Martinez (RBC) [Mass/Vol]32.6 g/bGTdadbl64.9-35.2The Wilson HealthComment on above:Performed By: #### CBC #### [facility] [address] [place] [address] Dr. Thierno Martinez (RBC) [Entitic vol]90.8 eREyewri42.0-99.0The Wilson HealthComment on above:Performed By: #### CBC #### [facility] [address] [place] [address] Dr. Thierno Santiago #0.8 103/ulNormal0.3-0.8The Wilson HealthComment on above:Performed By: #### CBC #### [facility] [address] [place] [address] Dr. Thierno Wrightocytes/100 WBC (Bld)8.2 %Normal1.7-12.0The [facility] Comment on above:Performed By: #### CBC #### [facility] [address] [place] [address] Dr. Thierno Carmen #5.4 103/ulNormal1.4-6.5The Wilson HealthComment on above:Performed By: #### CBC #### [facility] [address] [place] [address] Dr. Thierno Wareutrophils/100 WBC (Bld)56.2 %Anyriv54.0-75.0The [facility] on above:Performed By: #### CBC #### [facility] [address] [place] [address] Dr. Thierno Christiansonlet mean volume (Bld) [Entitic vol]10.4 fLNormal9.5-13.5The [facility] on above:Performed By: #### CBC #### [facility] [address] [place] [address] Dr. Thierno PhippsPLT626 103/ulCritically jggs402-563Iyj [facility] on above:Performed By: #### CBC #### [facility] [address] [place] [address] Dr. Thierno PhippsRBC5.33 106/ulNormal4.20-5.40The [facility] on above:Performed By: #### CBC #### [facility] [address] [place] [address] Dr. Thierno PhippsWBC9.6 103/ulNormal4.0-11.0The [facility] on above: Performed By: #### CBC #### [facility] [address] [place] [address] Dr. Thierno FerrerID PROFILEon 14-91-0314ZJHV-HDL RATIO [facility] on above:Result Comment: 3.3 - 4.4 LOW RISK 4.4 - 7.1 AVERAGE RISK 7.1 - 11.0 MODERATE RISK >11.0 HIGH RISKPerformed By: #### LIPID, CMP #### [facility] [address] [place] [address] Dr. Thierno PhippsCholesterol [Mass/Vol]267 mg/dLCritically high<=200The [facility] on above:Performed By: #### LIPID, CMP #### [facility] [address] [place] [address] Dr. Yilan ChangCholesterol in HDL [Mass/Vol]35 mg/dLCritically xrz03-80Hzq [facility] on above:Performed By: #### LIPID, CMP #### [facility] [address] [place] [address] Dr. Thierno Blissesterol in LDL [Mass/Vol]186.0 mg/dLOur Lady of Mercy HospitalComhenry [facility] on above:Performed By: #### LIPID, CMP #### [facility] [address] [place] [address] Dr. Thierno Garcia.total/Cholesterol in HDL [Mass ratio]7.6 {ratio} NormalTri[facility] on above:Performed By: #### LIPID, CMP #### [facility] [address] [place] [address] Dr. Thierno Carmona NORMAL> or = 60 mg/dl - LOW CARDIOVASCULAR RISK <40 mg/dl - HIGH CARDIOVASCULAR RISKOur Lady of Mercy HospitalComhenry [facility] on above:Performed By: #### LIPID, CMP #### [facility] [address] [place] [address] Dr. Thierno Vazquez CALC NORMALSEE BELOWOur Lady of Mercy HospitalComhenry [facility] on above:Result Comment: <100 mg/dl OPTIMAL 100 - 129 mg/dl NEAR OR ABOVE OPTIMAL 130 - 159 mg/dl BORDERLINE HIGH 160 - 189 mg/dl HIGH >190 mg/dl VERY HIGH Performed By: #### LIPID, CMP #### [facility] [address] [place] [address] Dr. Thieron PhippsTriglyceride [Mass/Vol]230 mg/dLCritically high<=150The [facility] on above:Performed By: #### LIPID, CMP #### [facility] [address] [place] [address] Dr. Thierno PhippsVLDL CALC46.0 mg/dLOur Lady of Mercy HospitalComhenry [facility] on above: Performed By: #### LIPID, CMP #### [facility] [address] [place] [address] Dr. Thierno PhippsMICFREDDYALBUMIN, RAND URon 38-93-3503sSPL<1.3Normal<=30.0The Wilson HealthComment on above:Performed By: #### MALBR #### [facility] [address] [place] [address] Dr. Thierno Kwon 14(COMP METB)on 05-98-0186Ginoupx [Mass/Vol]4.0 g/dLNormal 3.4-5.0The Wilson HealthComment on above:Performed By: #### LIPID, CMP #### [facility] [address] [place] [address] Dr. Thierno PhippsAlbumin/Globulin [Mass ratio]1.0 {ratio}NormalThe Wilson HealthComment on above:Performed By: #### LIPID, CMP #### [facility] [address] [place] [address] Dr. Thierno Sosa [Catalytic activity/Vol]93 U/KTsghpc30-296Cej [facility]ment on above:Performed By: #### LIPID, CMP #### [facility] [address] [place] [address] Dr. Thierno Chávez [Catalytic activity/Vol]30 U/HJagwco64-45Kxi [facility] Hospitalment on above:Performed By: #### LIPID, CMP #### [facility] [address] [place] [address] Dr. Thierno Samuel gap [Moles/Vol]7.9 mmol/LNormalThe Wilson HealthComment on above:Performed By: #### LIPID, CMP #### [facility] [address] [place] [address] Dr. Thierno Cisneros [Catalytic activity/Vol]18 U/YRdqols96-22Qpm [facility] Hospitalment on above:Performed By: #### LIPID, CMP #### [facility] [address] [place] [address] Dr. Thierno PhippsBilirubin [Mass/Vol]0.4 mg/dLNormal0.2-1.0The [facility] on above:Performed By: #### LIPID, CMP #### [facility] [address] [place] [address] Dr. Thierno PhippsCalcium [Mass/Vol]10.0 mg/dLNormal8.5-10.1The [facility] Comment on above:Performed By: #### LIPID, CMP #### [facility] [address] [address] [address] Thierno PhippsChloride [Moles/Vol]101 mmol/YRhcdkz47-531Dao [facility] Comment on above:Performed By: #### LIPID, CMP #### [facility] [address] [address] [address] Thierno PhippsCO2 [Moles/Vol]32.9 mmol/LCritically high21.0-32.0The Wilson HealthComment on above:Performed By: #### LIPID, CMP #### [facility] [address] [place] [address] Dr. Thierno PhippsCreatinine [Mass/Vol]0.97 mg/dLNormal0.55-1.02The Wilson HealthComment on above:Performed By: #### LIPID, CMP #### [facility] [address] [place] [address] Dr. Thierno VanessaGFR-AF PERUVIAN>60Normal>=60The Wilson HealthComment on above:Performed By: #### LIPID, CMP #### [facility] [address] [place] [address] Dr. Thierno VanessaGFR-NON AF GDTVTLUJ09 mL/min/1.83b9Zyhuesrbbf low>=60The Wilson HealthComment on above:Performed By: #### LIPID, CMP #### [facility] [address] [place] [address] Dr. Thierno PhippsGlobulin (S) [Mass/Vol]4.0 g/dLNormalThe Wilson HealthComment on above:Performed By: #### LIPID, CMP #### [facility] [address] [place] [address] Dr. Thierno PhippsGlucose [Mass/Vol]119 mg/dLCritically fuia73-819Svr Wilson HealthComment on above:Performed By: #### LIPID, CMP #### [facility] [address] [address] [address] Thierno PhippsPotassium [Moles/Vol]3.8 mmol/LNormal3.5-5.1The [facility] Comment on above:Performed By: #### LIPID, CMP #### [facility] [address] [address] [address] Thierno PhippsProtein [Mass/Vol]8.0 g/dLNormal6.4-8.2The [facility] Comment on above:Performed By: #### LIPID, CMP #### [facility] [address] [address] [address] Thierno PhippsSodium [Moles/Vol]138 mmol/IXvnrae483-179Ksl [facility] Comment on above:Performed By: #### LIPID, CMP #### [facility] [address] [address] [address] Thierno PhippsUrea nitrogen [Mass/Vol]14.0 mg/dLNormal7.0-18.0The Wilson HealthComment on above:Performed By: #### LIPID, CMP #### [facility] [address] [address] [address] Thierno Marion nitrogen/Creatinine [Mass ratio]14.4 mg/mgNormalThe Wilson HealthComment on above:Performed By: #### LIPID, CMP #### [facility] [address] [address] [address] Thierno PhippsXR LSPINE 2_3 VIEWSon 07-29-1355OF LSPINE 2_3 VIEWSEXAMINATION: XR LSPINE 2_3 VIEWS [...] Electronically authenticated by: RAIN HOWE Date: 2022-10-19 21:47NoBethesda North HospitalXR HIP RT 2 3V W PELVISon 59-81-8827XS HIP RT 2 3V W PELVIS EXAM: [...] Electronically authenticated by: CHAITANYA DAVIS Date: 2022-10-18 16:56NoBethesda North HospitalCT LUNG CANCER SCREENINGon 78-69-1699KM LUNG CANCER SCREENING EXAMINATION: CT LUNG CANCER [...] Electronically authenticated by: CHAITANYA CROCKER Date: 2022-05-17 15:19NoBethesda North HospitalXR CHEST 2 Von 25-99-0586AF CHEST 2 VEXAM: XR CHEST 2 V [...] Electronically authenticated by: WICHO CUETO Date: 2022-04-13 13:32[facility] HospitalXR KUB 1 VIEWon 38-27-6327WU KUB 1 VIEWEXAMINATION: XR KUB 1 VIEW [...] Electronically authenticated by: CHAITANYA CROCKER Date: 2022-04-13 17:20[facility] Vital Signs Date TimeVital SignValuePerforming XjlihngznKvorphvw53-43-8417 13:22-0400Body kophfu887.56 Ward Aichholz MORTICIAN INVESTIGATOR-C Work Phone: [facility]10-02-2025 13:22-0400 Body mass index (BMI) [Ratio]23.6 kg/m2Magdalene Ritchiehholz MORTICIAN INVESTIGATOR-C Work Phone: [facility]10-02-2025 13:22-0400 Body rgabxrrasxh66 [degF]Magdalene Ritchiehholz MORTICIAN INVESTIGATOR-C Work Phone: [facility]10-02-2025 13:22-0400 Body ortgmf91.31 kgMagdalene Aichholz MORTICIAN INVESTIGATOR-C Work Phone: [facility]10-02-2025 13:22-0400 Diastolic blood ljdirsly69 mm[Hg]Magdalene Olivarezholz MORTICIAN INVESTIGATOR-C Work Phone: [facility]10-02-2025 13:22-0400 Heart rate59 /minLisa Aichholz MORTICIAN INVESTIGATOR-C Work Phone: [facility]10-02-2025 13:22-0400 Respiratory rate16 /minLisa Juanisholz MORTICIAN INVESTIGATOR-C Work Phone: [facility]10-02-2025 13:22-0400 SaO2% (BldA) [Mass fraction]95 %Magdalene Chaujenniferholz MORTICIAN INVESTIGATOR-C Work Phone: [facility]10-02-2025 13:22-0400 Systolic blood ziympdvh527 mm[Hg]Magdalene Juanisholz MORTICIAN INVESTIGATOR-C Work Phone: [phone]-[facility]08-05-2025 13:03-0400 Body mass index (BMI) [Ratio]24.03 kg/m2Lisa Chauhholz MORTICIAN INVESTIGATOR Work Phone: [facility] HospitalRdgbtcndbt10-93-8913 13:03-0400Body temperature 98.1 [degF]Magdalene Juanisholz MORTICIAN INVESTIGATOR Work Phone: [facility] HospitalTdbbcuxnkj22-89-7381 13:03-0400Body kzdkku12.5 kg Magdalene Chauhholz MORTICIAN INVESTIGATOR Work Phone: [facility] HospitalPyuadhcybw14-84-8537 13:03-0400Diastolic blood xbkbooby20 mm[Hg]Magdalene Chauhholz MORTICIAN INVESTIGATOR Work Phone: [facility] HospitalDgugyceqtb95-82-1722 13:03-0400Heart rate56 /min Magdalene Chauhholz MORTICIAN INVESTIGATOR Work Phone: [facility] HospitalLrfhucfimc31-34-1333 13:03-0400Respiratory rate18 /minLisa Aichholz MORTICIAN INVESTIGATOR Work Phone: [address] [address]Pxbesrnzub28-64-2279 13:03-6632BmF3% (BldA) [Mass fraction]95 %Magdalene Chauhholz MORTICIAN INVESTIGATOR Work Phone: [facility] HospitalPisxheuzms45-87-8721 13:03-0400Systolic blood ayevdlni954 mm[Hg]Magdalene Chauhholz MORTICIAN INVESTIGATOR Work Phone: [facility] HospitalTxxonpbfeb07-16-5445 14:10-0400Body mass index (BMI) [Ratio]23.24 kg/m2Lisa Juanisholz MORTICIAN INVESTIGATOR Work Phone: [facility] HospitalOywsfsjthe95-20-0311 14:10-0400Body temperature 98.1 [degF]Magdalene Juanisholz MORTICIAN INVESTIGATOR Work Phone: [facility] HospitalEolkqabgtx90-85-6068 14:10-0400Body ncaazi91.42 kgLisa Chauhholz MORTICIAN INVESTIGATOR Work Phone: [facility] HospitalIpjwwguuqu86-26-4877 14:10-0400Diastolic blood xowsvdyw44 mm[Hg]Magdalene Juanisholz MORTICIAN INVESTIGATOR Work Phone: [facility] HospitalNgqwkqduui89-42-7888 14:10-0400Heart rate55 /min Magdalene Juanisholz MORTICIAN INVESTIGATOR Work Phone: [facility] HospitalLegophpoud06-85-4060 14:10-0400Respiratory rate20 /minLisa Juanisholz MORTICIAN INVESTIGATOR Work Phone: [facility] HospitalMxzlsignjt53-34-3243 14:10-1699ZmB3% (BldA) [Mass fraction]96 %Magdalene Juanisholz MORTICIAN INVESTIGATOR Work Phone: [facility] HospitalOfyaqakuzu07-64-0131 14:10-0400Systolic blood zwiupuke906 mm[Hg]Magdalene Juanisholz MORTICIAN INVESTIGATOR Work Phone: [facility] HospitalFussujocmh69-54-9303 14:10-0400Body mass index (BMI) [Ratio]22.45 kg/m2Lisa Chauhholz MORTICIAN INVESTIGATOR Work Phone: [facility] HospitalBdhwtrktql13-18-6637 14:10-0400Body temperature 98.1 [degF]Magdalene Juanisholz MORTICIAN INVESTIGATOR Work Phone: [facility] HospitalYnuxrbmkyn74-47-8350 14:10-0400Body szgewi00.33 kgLisa Chauhholz MORTICIAN INVESTIGATOR Work Phone: [facility] HospitalBitwbskmnc68-15-5858 14:10-0400Diastolic blood hpacbbei26 mm[Hg]Magdalene Goodrich MORTICIAN INVESTIGATOR Work Phone: [facility] HospitalNvfqlqlkkj90-51-8838 14:10-0400Heart rate62 /min Magdalene Goodrich MORTICIAN INVESTIGATOR Work Phone: [facility] HospitalRiwhhxltdj26-22-9667 14:10-0400Respiratory rate20 /minMagdalene Goodrich MORTICIAN INVESTIGATOR Work Phone: [facility] HospitalOqpytvmseb15-04-3008 14:10-5566WrG3% (BldA) [Mass fraction]95 %Magdalene Goodrich MORTICIAN INVESTIGATOR Work Phone: [facility] HospitalQgklijxzzv49-37-7997 14:10-0400Systolic blood mm[Hg]Magdalene Goodrich MORTICIAN INVESTIGATOR Work Phone: [facility] HospitalCfyuicmkpo02-76-2445 13:52-0500Body invkbl910.6 cmAndrew Church MORTICIAN INVESTIGATOR Work Phone: [facility] HospitalHhyqockfxf35-47-4716 13:52-0500Body mass index (BMI) [Ratio]23.69 kg/h5Trehyvqk Church MORTICIAN INVESTIGATOR Work Phone: [facility] HospitalZrwxdhymza67-62-7677 13:52-0500Body temperature 98.29 [degF]Andrew Church MORTICIAN INVESTIGATOR Work Phone: [facility] HospitalOypvhnecub63-65-6542 13:52-0500Body ohyyid95.6 kg Andrew Church MORTICIAN INVESTIGATOR Work Phone: [facility] HospitalOzxirbnnoq60-56-2163 13:52-0500Diastolic blood mm[Hg]Andrew Church MORTICIAN INVESTIGATOR Work Phone: [facility] HospitalCgosdhrnng33-36-9539 13:52-0500Heart rate74 /min Andrew Church MORTICIAN INVESTIGATOR Work Phone: [address] [address]Ygycqzcnss85-43-8245 13:52-0500Respiratory rate16 /minBrpj Church MORTICIAN INVESTIGATOR Work Phone: [facility] HospitalMcaidjiwmj01-03-9707 13:52-2612IiU2% (BldA) [Mass fraction]94 %Andrew Church MORTICIAN INVESTIGATOR Work Phone: [facility] HospitalAyuoqyqikn02-90-5111 13:52-0500Systolic blood mm[Hg]Andrew Church MORTICIAN INVESTIGATOR Work Phone: [facility] HospitalDtckjedpyj74-30-5174 14:23-0500Body seyfws282.6 cmBrreginaany Church MORTICIAN INVESTIGATOR Work Phone: [facility] HospitalJqxsvwnkch73-14-0754 14:23-0500Body mass index (BMI) [Ratio]24.2 kg/h1Ksntigma Church MORTICIAN INVESTIGATOR Work Phone: [facility] HospitalRdmzhuourt65-71-8174 14:23-0500Body temperature 96.6 [degF]Andrew Church MORTICIAN INVESTIGATOR Work Phone: [facility] HospitalXiolpnfzwg26-14-8417 14:23-0500Body svadkb29.96 kgBrpj Church MORTICIAN INVESTIGATOR Work Phone: [facility] HospitalIvjgkojtzj61-79-6491 14:23-0500Diastolic blood mm[Hg]Andrew Church MORTICIAN INVESTIGATOR Work Phone: [facility] HospitalNkrpnagity75-75-3043 14:23-0500Heart rate77 /min Andrew Church MORTICIAN INVESTIGATOR Work Phone: [facility] HospitalZrceprvqmu22-41-9437 14:23-0500Respiratory rate20 /minBrpj Church MORTICIAN INVESTIGATOR Work Phone: [place] [address]Ytuuyxqmhi30-00-8825 14:23-1282ZeJ1% (BldA) [Mass fraction]94 %Andrew Church MORTICIAN INVESTIGATOR Work Phone: [address] [address]Ezqmjygqnp13-72-2398 14:23-0500Systolic blood rodcstxn743 mm[Hg]Andrew Church MORTICIAN INVESTIGATOR Work Phone: [facility] HospitalFzgdfsdviv71-95-1273 16:15-0400Body dzwexh498.6 cmBrpj Church MORTICIAN INVESTIGATOR Work Phone: [facility] HospitalYjfsgxxdem22-00-6990 16:15-0400Body mass index (BMI) [Ratio]24.37 kg/n8Vsuwwcsb Church MORTICIAN INVESTIGATOR Work Phone: [facility] HospitalKqxxondmlu95-49-3202 16:15-0400Body temperature 97.7 [degF]Andrew Church MORTICIAN INVESTIGATOR Work Phone: [facility] HospitalFdybjnyumb90-74-5644 16:15-0400Body rybere09.41 kgBrpj Church MORTICIAN INVESTIGATOR Work Phone: [facility] HospitalCnswmdjpbi05-90-1425 16:15-0400Diastolic blood mm[Hg]Andrew Church MORTICIAN INVESTIGATOR Work Phone: [facility] HospitalPlkryanalp90-69-0777 16:15-0400Heart rate63 /min Andrew Church MORTICIAN INVESTIGATOR Work Phone: [facility] HospitalComment on above:97% B170-97-3418 16:15-0400Systolic blood cbegunpn131 mm[Hg]Andrew Church MORTICIAN INVESTIGATOR Work Phone: [facility] HospitalDmowmyzeba74-15-2776 11:27-0400Body wyzals451.02 cm[facility]04[facility] 11:27-0400Body mass index (BMI) [Ratio]22.4 kg/v3MfbojxpbuHolzer Hospital04-09-2024 11:27-0400Body qzhrby16.6 kgHol[facility] Hospital04-09-2024 11:27-0400Diastolic blood ifryqmtf88 mm[Hg][facility]04-09-2024 11:27-0400 Heart rate60 /minHolzer Hospital04-09-2024 11:27-0400Systolic blood qhwxiajh35 mm[Hg][facility]10-09-2023 15:00-0400 Body jlnolf421.02 cmRobert Schwartz Other [employer] Other 10-09-2023 15:00-0400Body mass index (BMI) [Ratio] 24.37 kg/j4Dssvyj Schwartz Other [employer] Other 10-09-2023 15:00-0400Body yskfwu83.42 kgRobert Efren Other [employer] Other 10-09-2023 15:00-0400Diastolic blood alhkciwv54 mm[Hg] Robert Schwartz Other [employer] Other 10-09-2023 15:00-0400Systolic blood phvbaajo758 mm[Hg] Robert Schwartz Other [employer] Other 07-11-2023 14:00-0400Body ioffwb982.02 cmRobert Efren Other [employer] Other 07-11-2023 14:00-0400Body mass index (BMI) [Ratio]24.8 kg/x4Aeindz Efren Other [employer] Other 07-11-2023 14:00-0400Body zrebxk51.5 kgGinareshma Efren Other [employer] Other 07-11-2023 14:00-0400Diastolic blood anzutkqm29 mm[Hg] Robert Schwartz Other [employer] Other 07-11-2023 14:00-0400Systolic blood mhrmwzqa818 mm[Hg] Robert Schwartz Other [employer] Other 04-04-2023 16:00-0400Body ujskod044.02 cmRobert Schwartz Other [employer] Other 04-04-2023 16:00-0400Body mass index (BMI) [Ratio] 25.33 kg/s7KmbhjlRobert Schwartz Other [employer] Other 04-04-2023 16:00-0400Body qhgdyu56.86 kgRobert Schwartz Other [employer] Other 04-04-2023 16:00-0400Diastolic blood urxszwlu40 mm[Hg] Robert Efren Other [employer] Other 04-04-2023 16:00-7818GdE5% (BldA) [Mass fraction]97 % Robert Schwartz Other [employer] Other 04-04-2023 16:00-0400Systolic blood gkwcyijw747 mm[Hg] Robert Schwartz Other [employer] Other Encounters Encounter DateEncounter TypeCare ProviderFacilityStart: 08-07-2025 End: 52-17-4761Goiynwze ReferredMagdalene Goodrich NP-C-[facility] Work Phone: Start: 08-07-2025 End: 43-67-2820atrbihydlaEroz J Aichholz MORTICIAN INVESTIGATOR-C Work Phone: [facility] Work Phone: Start: 08-07-2025 End: 90-69-5964Mtcsizf encounter procedureMagdalene Goodrich NP-C-[facility] [place] Work Phone: Start: 24-37-1924Ahmdnwl encounter statusLisa Joleen MARTINEZ-C Work Phone: [facility] Hospitaltart: 07-06-2025 End: 71-73-0853InfzncCygx Aichholz MORTICIAN INVESTIGATOR Work Phone: noMS CWM FMComment on above:Convulsions, unspecified convulsion type (HCC)Start: 06-10-2025 End: 68-41-4199Ubvftg flowsheetLisa Aichholz MORTICIAN INVESTIGATOR Work Phone: NOBN CWM FMStart: 06-10-2025 End: 06-21-2613Cjjdea flowsheetLisa Aichholz MORTICIAN INVESTIGATOR Work Phone: NOKT CWM FMStart: 06-10-2025 End: 53-75-3615cuogkcvwcwEDAY AICHHOLZNot AvailableStart: 06-10-2025 End: 20-10-2362Nordys outpatient visit 25 minutesLisa Aichdonz MORTICIAN INVESTIGATOR Work Phone: [facility] CWM FMComment on above:Essential (primary) hypertension (Primary Dx); Other chronic pain; Fibromyalgia, primary; Type 2 diabetes mellitus with stage 3a chronic kidney disease, without long-term current use of insulin (HCC); Nicotine dependence, cigarettes, uncomplicated; FUENTES (generalized anxiety disorder) ; Restless leg syndrome; Lumbar back painStart: 05-30-2025 End: 37-69-6409Yxrsqqwcz Result EncounterGeneric External Data ProviderNOMS External Department UnsolicitedStart: 05-30-2025 End: 16-75-1944Vlhavgyvk Result EncounterGeneric External Data ProviderNOMS External Department UnsolicitedStart: 05-17-2025 End: 21-36-6149PgugtcDydn Aichholz MORTICIAN INVESTIGATOR Work Phone: [facility] CWM FMComment on above:Restless leg syndrome Start: 05-12-2025 End: 06-58-7901GyhawwRelu Aichholz MORTICIAN INVESTIGATOR Work Phone: [facility] CWM FMComment on above:Lumbar back pain; FUENTES (generalized anxiety disorder)Start: 04-10-2025 End: 17-09-2932Bhvevn outpatient visit 25 minutesLisa Aichholz MORTICIAN INVESTIGATOR Work Phone: [facility] CWM FMComment on above:Type 2 diabetes mellitus with stage 3a chronic kidney disease, without long-term current use of insulin (HCC) ([facility]) (Primary Dx); Essential (primary) hypertension ([facility]); FUENTES (generalized anxiety disorder) ([facility]); Lumbar back pain; Current episode of major depressive disorder without prior episode, unspecified depression episode severity ([facility]); Nicotine dependence, cigarettes, uncomplicated; UTI symptoms; Convulsions, unspecified convulsion type ([facility])Start: 04-10-2025 End: 21-64-4125kwjhvuptbjEXMN AICHHOLZNot AvailableStart: 03-13-2025 End: 53-66-7109UcbhgvPmwz Aichholz MORTICIAN INVESTIGATOR Work Phone: [facility] CWM FMComment on above:Lumbar back painStart: 03-11-2025 End: 19-39-5156Nbxuhdpnm Result EncounterGeneric External Data ProviderNOMS External Department UnsolicitedStart: 03-11-2025 End: 25-65-4436Xfwcdynkj Result EncounterGeneric External Data ProviderNOMS External Department UnsolicitedStart: 03-06-2025 End: 97-19-8021QeupurXhgq Naderer MD Work Phone: [facility] CWM FMComment on above:Cerebrovascular accident (CVA), unspecified mechanism ([facility])Start: 02-25-2025 End: 48-72-8199Rbvkuv flowsheetMagdalene Goodrich MORTICIAN INVESTIGATOR Work Phone: [facility] CWM FMStart: 02-25-2025 End: 76-24-6748Nbcfrf flowsheetMagdalene Goodrich MORTICIAN INVESTIGATOR Work Phone: [facility] CWM FMStart: 02-25-2025 End: 16-01-3681Qooqtz outpatient visit 25 minutesMagdalene Goodrich MORTICIAN INVESTIGATOR Work Phone: [facility] CWM FMComment on above:Essential (primary) hypertension ([facility]) (Primary Dx); Type 2 diabetes mellitus with diabetic chronic kidney disease ([facility]/HCC); Essential (hemorrhagic) thrombocythemia; Seizure ([facility]); Restless leg syndrome; Age-related osteoporosis without current pathological fracture ([facility]); Fibromyalgia, primary; Anxiety; Current episode of major depressive disorder without prior episode, unspecified depression episode severity ([facility] [facility]); FUENTES (generalized anxiety disorder) ([facility]); Mixed hyperlipidemia ([facility]); Nicotine dependence, cigarettes, uncomplicatedStart: 02-25-2025 End: [id number] CHAUHHOLTHADot AvailableStart: 02-24-2025 End: [id number] Aichholz MORTICIAN INVESTIGATOR Work Phone: [facility] FMComment on above:FUENTES (generalized anxiety disorder) ([facility] [address] [address]); Restless leg syndromeStart: 02-19-2025 End: [id number] Aichholz MORTICIAN INVESTIGATOR Work Phone: NOMS CWM FMComment on above:Restless leg syndrome Start: 02-12-2025 End: 35-23-8733EdjrpuFbwa Aichholz MORTICIAN INVESTIGATOR Work Phone: N[facility]S CWM FMComment on above:Lumbar back painStart: 01-13-2025 End: 88-69-9940BprvjbMafg Naderer MD Work Phone: NOMS CWM FMComment on above:Hyperlipidemia, unspecified hyperlipidemia type ([facility]); Lumbar back painStart: 12-25-2024 End: 23-34-4655Ygyqxy flowsheetBrittany Church MORTICIAN INVESTIGATOR Work Phone: NOMS CWM FMStart: 12-25-2024 End: 42-10-8814Phyixl flowsheetBrittany Church MORTICIAN INVESTIGATOR Work Phone: NOMS CWM FMStart: 12-25-2024 End: 09-47-9281Ohopob outpatient visit 15 minutesBrittmandy BarlowChurch MORTICIAN INVESTIGATOR Work Phone: NOMS CWM FMComment on above:FUENTES (generalized anxiety disorder) (CMS/HCC) (Primary Dx); Convulsions, unspecified convulsion type (CMS/HCC); Essential (primary) hypertension (CMS/HCC); Mixed hyperlipidemia (CMS/HCC); PrediabetesStart: 12-25-2024 End: 54-19-5976dojdcusmssDCTCGRKQ FITZPATRICKNot AvailableStart: 12-20-2024 End: 05-30-9133Bmwvlhiie Result EncounterBrittany Church MORTICIAN INVESTIGATOR Work Phone: noms External Department UnsolicitedStart: 12-20-2024 End: 90-30-4537Eupmldhkv Result EncounterBrittany Church MORTICIAN INVESTIGATOR Work Phone: noms External Department UnsolicitedStart: 12-17-2024 End: 42-90-6142HhnafrVdzuAdriana MACK CWM FMComment on above:Lumbar back pain Start: 11-13-2024 End: 13-27-3923QggbbaVddkcszr Church MORTICIAN INVESTIGATOR Work Phone: noms CWM FMComment on above:Lumbar back pain; Cerebrovascular accident (CVA), unspecified mechanism (CMS/HCC)Start: 10-14-2024 End: 02-62-6302NjamzaCmsyAdriana MACK CWM FMComment on above:Lumbar back pain Start: 09-23-2024 End: 89-85-6471Rnnhog outpatient visit 15 minutesBrittany Church MORTICIAN INVESTIGATOR Work Phone: noms CWM FMComment on above:Prediabetes (Primary Dx); Essential (primary) hypertension (CMS/HCC); Mixed hyperlipidemia (CMS/HCC)Start: 09-23-2024 End: 61-70-9053iopzcboaixQMDHQGJG FITZPATRICKNot AvailableStart: 09-23-2024 End: 86-75-0111Stqnsi flowsheetBrittany Church MORTICIAN INVESTIGATOR Work Phone: noms CWM FMStart: 09-23-2024 End: 55-19-9831Awclci flowsheetBrittany Church MORTICIAN INVESTIGATOR Work Phone: noms CWM FMStart: 77-80-4861jnlxdwcqupGKOJMUP [facility] Ambulatory PPGStart: 09-11-2024 End: 66-01-1889EcxywkZpma Howard MANOMS CWM FMComment on above:Lumbar back pain Start: 09-09-2024 End: 38-55-8840Oadvcf Yadielmandy Church MORTICIAN INVESTIGATOR Work Phone: noms CWM FMComment on above:Type 2 diabetes mellitus with chronic kidney disease, without long-term current use of insulin, unsp ecified CKD stage (CMS/HCC) (Primary Dx)Start: 09-03-2024 End: 67-40-5788Vhmtxhioa Result EncounterAndrew Barlowzpatrick MORTICIAN INVESTIGATOR Work Phone: noms External Department UnsolicitedStart: 09-03-2024 End: 59-41-3535Xifapxpzy Result EncounterAndrew Barlowzpatrick MORTICIAN INVESTIGATOR Work Phone: noms External Department UnsolicitedStart: 09-03-2024 End: 80-28-1428LhmgaxDehciwtx Fitzpatrick MORTICIAN INVESTIGATOR Work Phone: noms CWM FMComment on above:Restless leg syndrome Start: 08-13-2024 End: 15-93-1967Pflrmxfsp Result EncounterGeneric External Data ProviderNOMS External Department UnsolicitedStart: 08-13-2024 End: 89-11-4224Woaleikac Result EncounterGeneric External Data ProviderNOMS External Department UnsolicitedStart: 08-06-2024 End: 46-59-3397LziuufLzolhuzl Church MORTICIAN INVESTIGATOR Work Phone: noms CWM FMComment on above:Lumbar back pain (Primary Dx); Hyperlipidemia, unspecified hyperlipidemia type (CMS/HCC); Essential (primary) hypertension (CMS/HCC); Restless leg syndrome; Cerebrovascular accident (CVA), unspecified mechanism (CMS/HCC)Start: 07-24-2024 End: 88-20-0571Tkwqsgs preventive medicine new patient 63yrs&>Andrew Barlowzpatrick MORTICIAN INVESTIGATOR Work Phone: noms CWM FMComment on above:Essential (primary) hypertension (CMS/HCC) (Primary Dx); Mixed hyperlipidemia (CMS/HCC); Nicotine dependence, cigarettes, uncomplicated; Cerebrovascular accident (CVA), unspecified mechanism (CMS/HCC)Start: 07-24-2024 End: 46-88-9209tzoueeitnkSBLVEDNE FITNICKTRICKNot AvailableStart: 07-24-2024 End: 12-28-2001Liduzt flowsheetKirkreginamandy BarlowChurch MORTICIAN INVESTIGATOR Work Phone: noms CWM FMStart: 07-24-2024 End: 56-38-2897Szccgl flowsheetAndrew Haleypatrick MORTICIAN INVESTIGATOR Work Phone: noms CWM FMStart: 47-37-5885Tkjbsqc encounter status Andrew Bralowzpatrick MORTICIAN INVESTIGATOR Work Phone: noms HealthcareStart: 83-66-1945Czbmeit encounter statusAndrew Church MORTICIAN INVESTIGATOR Work Phone: [facility] Work Phone: Start: 04-02-2024 End: 55-78-6885jrfhvwxkjpOJHLPremier Health [facility] Hospital Northtart: 26-15-3137intqhudssxVxyvHunter HooperFacility:FTMENLO PARK SURGICAL HOSPITALtart: 03-25-2024 End: 20-77-9971Ihjidyeys encounterPaige [facility] Start: 02-13-2024 End: 86-74-8935giidmxqqhpMvwvbtuklCincinnati VA Medical Center Work Phone: Start: 02-13-2024 End: 41-57-5708Zdwftab encounter procedureLito Physician [facility] Work Phone: Start: 65-05-9744onvclvchyuAOCFKX A DWYERGrand Lake Joint Township District Memorial Hospitaltart: 02-12-2024 End: 95-98-0223Wdjmogtcg encounterPaige Philip [facility] Start: 29-23-3954tthcxhboduYMPAJABQueen of the Valley [facility] Ambulatory PPG Start: 04-39-8360Knj-patient / Non-visitFirelands Physician Group-[facility] Work Phone: Start: 02-08-2024 End: 29-46-9764Jwxlgkfve department patient visitArkansas [facility] Ambulatory PPGStart: 29-95-8218Nwe-patient / Non-visitFirelands Physician Group-[facility] Work Phone: Start: 31-04-3916Xxy-patient / Non-visitFirelands Physician [facility] Work Phone: Start: 25-17-1224Qks-patient / Non-visitFirelands Physician Group-[facility] Work Phone: Start: 10-24-2023 End: 00-83-7586ffthcbnvrsEsrqtb Efren Other [employer] Other Start: 93-03-1060Whvkcgown encounterMarcia [facility] Centertart: 09-22-2023 End: 31-52-9624mtdlfdfcfuBimsws Schwartz Other [employer] Other Start: 40-68-6871Ryvlgmpyd encounterMarcia [facility] ClinicStart: 08-23-2023 End: 57-43-4940kpviuvglmjWmfopq Schwartz Other [employer] Other Start: 11-08-0384Vvajbpnaa encounterMarcia [facility] Centertart: 08-14-2023 End: 25-67-1858kqpexgdzleMiyech Schwartz Other [employer] Other Start: 70-70-7889Xulhqc outpatient visit 15 minutes Robert BraunTriHealth Bethesda Butler Hospitaltart: 97-32-5457Ehbeutpdo encounterMarcia [facility] ClinicStart: 07-24-2023 End: 41-22-2522lzwwjfimvsTtmdzp Schwartz Other [employer] Other Start: 33-50-2427Etvvqgabq encounterMarcia [facility] ClinicStart: 06-23-2023 End: 82-51-8536nbjwmcseirNtpqha Schwartz Other [employer] Other Start: 02-13-1637Mgitnctge encounterMarcia [facility] ClinicStart: 06-12-2023 End: 84-58-6739rpikrdmnqpGqnidl Schwartz Other [employer] Other Start: 82-50-0851Wgyncbkxj encounterMarcia [facility] ClinicStart: 05-16-2023 End: 54-14-0521lcgvjhozalQihqdi Schwartz Other [employer] Other Start: 80-12-8588Woistr outpatient visit 15 minutes Robert [facility] ClinicStart: 02-24-2023 End: 83-46-3415plzbwtdxcxBgzosd Schwartz Other [employer] Other Start: 54-54-8138Rpxbtbxlw encounterMarcia [facility] ClinicStart: 02-13-2023 End: 04-16-6630yrpdzcwqylJdxynfap Jean Claude Other [employer] Other Start: 02-71-6004Zqlktsizy encounterMarcia [facility] ClinicStart: 02-09-2023 End: 78-31-8236euupoigtwnAK ROBERT SCHWARTZFacility:F3Covnh: 02-07-2023 End: 55-36-5911qqxbtyeppoTljgvb Schwartz Other [facility] [employer] Other Start: 44-64-7158Tuhlwx outpatient visit 25 minutes Robert Benito [facility] ClinicStart: 10-18-2022 End: 00-95-1641zljowjrhjpRK ROBERT Rodriguez EFRENFacility:B2Cogpu: 72-84-1160Iwa- procedure evaluation Eugene Schwartz Other [facility] [employer] Other Start: 05-17-2022 End: 51-07-7809jboirlhgnmUK MARCIA E BRAUNFacility:U5Gybhk: 04-13-2022 End: 01-64-7773wczhsbeqvoZBCandy SCHWARTZFacility:H1 Procedures DateProcedureProcedure DetailPerforming ClinicianStart: 22-51-7027CFZ CBC WITH AUTO DIFFGeneric External Data ProviderStart: 34-99-2703Vxkkx dip stick/tablet rgnt non-auto w/o micrscpLisa Joleen MORTICIAN INVESTIGATOR Work Phone: Start: 38-30-9432Bwrbrcgjja glycosylated e4yKkpd Joleen MORTICIAN INVESTIGATOR Work Phone: Start: 78-92-5161HVV CBC WITH AUTO DIFFGeneric External Data ProviderStart: 15-60-9021AJH CBC WITH AUTO DIFFBrittany Church MORTICIAN INVESTIGATOR Work Phone: Start: 77-97-3361EMN CBC WITH AUTO DIFFBrittany Church MORTICIAN INVESTIGATOR Work Phone: Start: 35-08-7636MCE CBC WITH AUTO DIFFGeneric External Data ProviderStart: 07-24-2024 End: 02-25-2025H/O: artificial jointPresence of right artificial shoulder joint Andrew Church MORTICIAN INVESTIGATOR Work Phone: Start: 19-17-6658Sbzhivwv identified in Urine by CultureStart: 82-61-6730Mhvocksov for malignant neoplasm of cervixRobert Schwartz Other Plan of Treatment DateCare ActivityDetailAuthorStart: 30-28-0027Agnjzmbr screeningDiabetes: Retinopathy ScreeningLAYTON HOSPITAL HealthcareStart: 56-18-6836Pksesppp screeningDiabetes: Retinopathy ScreeningLAYTON HOSPITAL HealthcareStart: 06-13-3086Atlbl screening for proteinDiabetes: Urine Protein ScreeningLAYTON HOSPITAL HealthcareStart: 08-07-2025 [facility]tart: 09-18-2025Medicare Annual Wellness (AWV) Medicare Annual Wellness (AWV)[facility] HealthcareStart: 07-16-2025 End: 16-58-3486Jovprsh encounter procedureNOROLLING HILLS [facility] FMStart: 34-48-2187Odkoectooq A1c measurementDiabetes: Hemoglobin T3ZNHGZ HealthcareStart: 07-07-2025 Influenza vaccinationInfluenza Vaccine (#1)[facility] HealthcareStart: 06-10-2025 End: 15-83-2652Qtjkezd encounter pumoarpav16/05/2025 1:00 PM EDT Office Visit [facility] [address] [place] [address] Magdalene Goodrich, MORTICIAN INVESTIGATOR [address] [place] [address] [facility] FMStart: 04-10-2025 End: 72-85-8499Lqfmbhr encounter unxqtgjwi15/05/2025 2:00 PM EDT Office Visit [facility] [address] [place] [address] Magdalene Goodrich, MORTICIAN INVESTIGATOR [address] [place] [address] [facility] FMStart: 02-25-2025 End: 62-00-6791Ffedail encounter procedureNOROLLING HILLS HOSPITAL – ADA FMComment on above:Seizure (CMS/HCC) (Primary Dx); Type 2 diabetes mellitus with diabetic chronic kidney disease (CMS/HCC); Essential (hemorrhagic) thrombocythemia; Restless leg syndrome; Essential (primary) hypertension (CMS/HCC); Age-related osteoporosis without current pathological fracture ([facility]); Fibromyalgia, primary; Anxiety; Current episode of major depressive disorder without prior episode, unspecified depression episode severity ([facility]); FUENTES (generalized anxiety disorder) ([facility]); Mixed hyperlipidemia ([facility]); Nicotine dependence, cigarettes, uncomplicatedStart: 12-25-2024 End: 32-66-3072Lekcwdi encounter elpznhzsw11/19/2025 2:00 PM EST Office Visit [facility] [address] [place] [address] Andrew Church, MICHELLE [address] [place] [address] [facility] FMComment on above:ArrivedStart: 12-24-2024 End: 37-57-0028VBN W Auto Differential panel - BloodCBC and differential Lab Routine Prediabetes Expected: 12/24/2024 (Approximate), Expires: 09/23/2025[facility] HealthcareComment on above:Expected: 12/24/2024 (Approximate), Expires: 09/23/2025Start: 12-24-2024 End: 74-43-1445Hrtwzzznzjzlb metabolic 2000 panel - Serum or PlasmaComprehensive metabolic panel Lab Routine Prediabetes Expected: 12/24/2024 (Approximate), Expires: 09/23/2025[facility] HealthcareComment on above:Expected: 12/24/2024 (Approximate), Expires: 09/23/2025Start: 12-24-2024 End: 69-84-1325Bsfaieiapx A1c/Hemoglobin.total in BloodHemoglobin A1c Lab Routine Prediabetes Expected: 12/24/2024 (Approximate), Expires: 09/23/2025[facility] HealthcareComment on above:Expected: 12/24/2024 (Approximate), Expires: 09/23/2025Start: 12-23-2024 End: 68-63-9031Giwjpau encounter afwqtogft24/17/2025 2:00 PM EST Office Visit [facility] [address] [place] [address] Andrew Church, MORTICIAN INVESTIGATOR [address] [place] [address] NOM[facility] CWM FMStart: 09-23-2024 End: 19-67-6629Jshifsp encounter procedureNOMS CWM FMComment on above:Arrived Start: 08-20-2024 End: 69-88-8325Eymdfce encounter rqzqszpey38/15/2024 2:40 PM EDT Office Visit [facility] [address] [place] [address] Ees Brewer NP [address] [place] [address] [facility] ROUTEStart: 07-24-2024 End: 22-75-7866Qkdnsqh encounter ndalvtmia70/18/2024 4:30 PM EDT Office Visit [facility] FM [address] [place] [address] Andrew Church, MORTICIAN INVESTIGATOR [address] [place] [address] ArrivedNOMS CWM FMComment on above:ArrivedStart: 07-24-2024 End: 96-51-5343KUA W Auto Differential panel - BloodCBC and differential Lab Routine Essential (primary) hypertension (CMS/HCC) Mixed hyperlipidemia (CM S/HCC) Expected: 07/24/2024 (Approximate), Expires: 07/23/2025[facility] Comment on above:Expected: 07/24/2024 (Approximate), Expires: 07/23/2025Start: 07-24-2024 End: 90-16-2889Mlxeqkvreannv metabolic 2000 panel - Serum or PlasmaComprehensive metabolic panel Lab Routine Essential (primary) hypertension (CMS/HCC) Mixed hyperlipidemia (CMS/HCC) Expected: 07/24/2024 (Approximate), Expires: 07/23/2025 NOMS HealthcareComment on above:Expected: 07/24/2024 (Approximate), Expires: 07/23/2025Start: 07-24-2024 End: 41-40-2625Pqlfwnshfp A1c/Hemoglobin.total in BloodHemoglobin A1c Lab Routine Essential (primary) hypertension (CMS/HCC) Mixed hyperlipidemia (CMS/HCC) Cerebrovascular accident (CVA), unspecified mechanism (CMS/HCC) Expected: 07/24/2024 (Approximate), Expires: 07/23/2025[facility] HealthcareComment on above:Expected: 07/24/2024 (Approximate), Expires: 07/23/2025Start: 07-24-2024 End: 08-73-5040Upkox 1996 panel - Serum or PlasmaLipid panel Lab Routine Mixed hyperlipidemia (CMS/HCC) Expected: 07/24/2024 (Approximate), Expires:07/23/2025 [facility] HealthcareComment on above:Expected: 07/24/2024 (Approximate), Expires: 07/23/2025Start: 07-24-2024 End: 17-20-2360TMP W/REFLEX TO FT4TSH W/REFLEX TO FT4 Lab Routine Essential (primary) hypertension (CMS/HCC) Expected: 07/24/2024 (Approximate), Expires: 07/23/2025[facility] Work Phone: Comment on above:Expected: 07/24/2024 (Approximate), Expires: 07/23/2025Start: 06-86-5698Todoeddse vaccinationLAYTON HOSPITAL HealthcareStart: 78-28-4701Ivatdxp [facility] Work Phone: Start: 32-28-1281Bcquw BMI ScreeningAdult BMI ScreeningProAccess Hospital Dayton SystemStart: 13-87-7193Dhndcinrgbpw Vaccine: 65+ Years (2 of 2 - PCV)Pneumococcal Vaccine: 65+ Years (2 of 2 - PCV)[facility] Start: 38-81-0674Cidr Risk ScreeningFall Risk ScreeningUniversity Hospitals [facility] System Start: 98-00-1010Uxcpztwnighhyi of varicella zoster vaccineZoster (Shingles) Vaccine (1 of 2)[facility] [employer] SystemStart: 68-68-7613MIbH,Tdap and Td Vaccines (1 - Tdap)DTaP,Tdap and Td Vaccines (1 - Tdap)[facility] Start: 73-57-5781Zvumy screening for proteinDiabetes: Urine Protein Screening [facility] HealthcareStart: 28-75-6944Ekhdlyrtmw ScreeningDepression Screening [facility] Centertart: 24-57-1276Ekunyqe ScreeningTobacco Screening [facility] Centertart: 03-47-4476Ehhshfid screeningDiabetes: Retinopathy ScreeningLAYTON HOSPITAL HealthcareStart: 82-55-9618Iwulfspdrc A1c measurementDiabetes: Hemoglobin X1YTBLO HealthcareStart: 1948Medicare Annual Wellness Visit Medicare Annual Wellness VisitSt. Francis HospitalDrugs identified in Urine [facility] HospitalMicroalbumin/Creatinine panel in random Urine Microalbumin / creatinine urine ratio Lab Routine Prediabetes Ordered: 09/23/2024[facility] Work Phone: Comment on above:Ordered: 4Patient referral [facility] Work Phone: us Lower extremity vein - leftHolzer HospitalXR Hip - left 2 ViewsHolzer Hospital Immunizations Immunization DateImmunizationNotesCare DfruvaszOlquqvqo41-75-7736jdgbhlldq, seasonal, injectableBrittany Church MORTICIAN INVESTIGATOR Work Phone: [facility] HospitalGbvpvibmbm57-54-0750shttdlkvj virus vaccine, unspecified formulationLisa Aichholz MORTICIAN INVESTIGATOR Work Phone: [facility] HospitalGoyloefblp73-48-6958Dlzdeozyz, Seasonal, Quadrivalent, AdjuvantedLisa Aichholz MORTICIAN INVESTIGATOR Work Phone: [facility] HospitalAybruuaasj77-55-9668vwgyoxqvy virus vaccine, unspecified formulationWashington [facility] Medical Center10-05-2022influenza virus vaccine, split virus (incl. purified surface antigen)Robert Schwartz Other [facility] [employer] Other 308807-82-2948xhzjmbuhn virus vaccine, unspecified formulationHolzer Hospital10-05-2022Influenza, High-dose Seasonal, Quadrivalent, Preservative FreeLisa Aichholz MORTICIAN INVESTIGATOR Work Phone: [facility] HospitalMgyxgtdfpv08-36-6724Nzubrpjyf, High-dose Seasonal, Quadrivalent, Preservative FreeLisa Aichholz MORTICIAN INVESTIGATOR Work Phone: [phone] [place], [place] [address]Iyzsldypub05-77-5450dauunewlx, high dose seasonal, preservative-freeLisa Aichholz MORTICIAN INVESTIGATOR Work Phone: [phone] [place], [place] [address]Kbvywtssnb73-80-5648ftjenzw vaccine or immune globulinLisa Aichholz MORTICIAN INVESTIGATOR Work Phone: [facility] HospitalKuxmqiyobv25-51-3017Imlqbguc trivalent influenza vaccine, adjuvanted, preservative freeLisa Aichholz MORTICIAN INVESTIGATOR Work Phone: [facility] HospitalCuuxbkfpfj04-30-3679ofggxofvb, high dose seasonal, preservative-freeLisa Aichholz MORTICIAN INVESTIGATOR Work Phone: [phone] [place], [place] [address]Kunibbvbxz68-96-4912nvxyqognrmxg polysaccharide vaccine, 23 valentLisa Aichholz MORTICIAN INVESTIGATOR Work Phone: [facility] HospitalGgsndxlikx87-98-9867ujgdb kkolibtcz-K9J2-60, preservative-free, injectableLisa Aichholz MORTICIAN INVESTIGATOR Work Phone: [facility] HospitalMksuqlhgvj43-54-1912yvlkbkyptmej polysaccharide vaccine, 23 valentLisa Aichholz MORTICIAN INVESTIGATOR Work Phone: [facility] Payers DatePayer CategoryPayerPolicy [id number] (Managed Care)[employer] [id number] 2020Medicare [id number] 2018Medicaid [id number] [id number] [id number] [id number] 2.840.1.984093.3.57[id number] 2.840.1.784349.3.57[id number] 2.840.1.744467.3.57[id number] 2.840.1.112784.3.57[id number] 2.840.1.603228.3.57[id number] 2.16840.1.662524.3.57[id number] 2.16840.1.149381.3.57[id number] 2.16840.1.878592.3.57[id number] 2.16840.1.170206.3.57[id number] 2.16840.1.325040.3.57[id number] 2.16.840.1.969705.3.57[id number] 2.16.840.1.912732.3.57[id number] 2.16.840.1.672569.3.57[id number] 2.16.840.1.057610.3.579.2.1259 Social History DateTypeDetailFacilityUnknown if ever smokedErie [employer] Other Start: 07-24-2024 End: 79-79-1622Bny Assigned At [facility] [employer] Other Start: 34-04-2323Jln Assigned At [facility] Centertart: 04-06-2021 End: 51-94-7968Vbsukuf smoking status NHISSmokes tobacco dailyNOMS Healthcare History of tobacco useCigarette SmokerProHill Crest Behavioral Health Services Health SystemHistory of tobacco usePassive smokerNOMS HealthcareStart: 07-24-2024 End: 24-45-7832Yoykehjxz beverage intakeLifetime non-drinker (finding)[facility] HealthcareStart: 07-24-2024 End: 59-98-8755Hkjnujf of Social functionNOMS HealthcareStart: 76-68-2096Aaf assigned at birthNot on fileProMediak Health SystemStart: 53-24-9371Neqftnp use and exposureSmokeless tobacco non-userProMedica Health SystemStart: 04-06-2021 Alcoholic beverage intakeCurrent non-drinker of alcohol (finding)[facility] Health SystemChildcareUnknownProMedUniversity Hospitals Geaug[facility] Center SystemTobacco smoking status NHIS Unknown if ever smokedAcmc Healthcare System Work Phone: SexFemale (finding)[facility] Clinical Notes 02-07-2023 to 08-07-2025 Note Date & TlfxEgafMcbevscn60-82-2492 Evaluation note* Diagnosis Onset Date Resolution Status Admit Date Essential (primary) hypertension acuteOctober 2024 1:10pmFibromyalgia, primaryacuteOctober 2024 1:10pm FUENTES (generalized anxiety disorder)acuteOctober 2024 1:10pmGERD (gastroesophageal reflux disease)acuteOctober 2024 1:10pmHx of deep venous thrombosisacuteOctober 2024 1:10pmHyperlipidemia, unspecifiedacuteOctober 2024 1:10pmLeft hip painacuteOct2024 1:10pmNicotine dependence, cigarettes, uncomplicatedacuteOct2024 1:10pmOther chronic painacute August 07, 2025 1:10pmType 2 diabetes mellitus with diabetic chronic kidney diseaseacuteOct2024 1:10pmUTI symptomsacuteOct2024 1:10pm [facility] Work Phone: [phone] Hospital Discharge instructionsAmbulatory Orders* AMB POC Ur Dipstick Time Frame: 08/07/25, Location: Determined By Patient [facility] Work Phone: [phone]) 679-317308-05-2025 History of Present illness Narrative* Magdalene Goodrich, [...] (dual therapy). She does not see a steam plant records clerk.Eye exam is not current. SUBJECTIVE: MEDICATIONS: [...] of the risks of continued smoking: stroke, OK, all forms of cancer, lung disease, and [...] of the risks of continued smoking: stroke, OK, all forms of cancer, lung disease, and [...] EDTAssociated Problem(s): Fibromyalgia, primary gabapentin * Magdalene Goodirch NP - 06/10/2025 6:43 AM EDTAssociated Problem(s): Essential (primary) hypertension Please check blood pressure daily and record DASH diet Limit caffeine Take medication as directed Contact office if chest pain, pressure, dizziness, shortness of breath, swelling legs Recommend slow position changes Current med: b raúl Add lisinopril Log book, rx for bp monitor documented in this encounterChildren's Mercy HospitalCuaplcgqce86-48-6909 Instructions* Patient Instructions* Magdalene Goodrich NP - 06/10/2025 1:00 PM EDT Add lisinopril 10mg daily in addition to metoprolol 25mg bid Check blood pressure once a day and record Come back in 1 month and bring the log of readings and blood pressure machine documented in this [facility]06-05-2025 History of Present illness Narrative* Magdalene [...] being taken. She does not see a steam plant records clerk.Eye exam is not current. Difficulty Urinating [...] Date Age-related osteoporosis without current pathological fracture ([facility]) B12 deficiency Current episode of major depressive disorder without prior episode (CMS/HCC) Epilepsy, unspecified, not intractable, without status epilepticus 09/03/2018 Essential (primary) hypertension (CMS/HCC) FUENTES (generalized anxiety disorder) ([facility]) Hyperlipidemia (CMS/HCC) Insomnia, unspecified Left carpal tunnel syndrome Migraine Nicotine dependence, cigarettes, uncomplicated Restless leg syndrome Stroke ([facility]) Past Surgical History: Procedure Laterality Date BILATERAL [...] of the risks of continued smoking: stroke, OK, all forms of cancer, lung disease, and . Options for quitting smoking include: cold turkey, hypnosis, acupuncture, nicotine replacement meds(gum, lozenges, and patches), Buproprion, and Varenicline. At this time pt is encouraged to evaluate their goals for wanting to quit smoking, and reach out toprovider when ready to start this process Type 2 diabetes mellitus with diabetic chronic kidney disease ([facility]) - Primary Check blood sugars daily, notify [...] Other Visit Diagnoses Convulsions, unspecified convulsion type ([facility]) Relevant Medications levETIRAcetam (Keppra) 500 MG tablet [...] of the risks of continued smoking: stroke, OK, all forms of cancer, lung disease, and [...] of major depressive disorder without prior episode ([facility]) At last appt, we discussed if need for grief counseling, she will think about this Current meds: none Overall feels she is doing better * Magdalene Goodrich NP - 04/10/2025 7:03 AM EDTAssociated Problem(s): Type 2 diabetes mellitus with diabetic chronic kidney disease ([facility]) Check blood sugars daily, notify if <70 [...] Current med: b raúl documented in this encounterChildren's Mercy [id number] History of Present illness Narrative* Magdalene Goodrich [...] husbandspassing Loss of apatite * Magdalene Goodrich, MORTICIAN INVESTIGATOR - 02/25/2025 2:00 PM EDT Lesly Steve [...] Date Age-related osteoporosis without current pathological fracture ([facility]) B12 deficiency Current episode of major depressive disorder without prior episode ([facility]/HCC) Epilepsy, unspecified, not intractable, without status epilepticus 09/03/2018 Essential (primary) hypertension ([facility]/HCC) FUENTES (generalized anxiety disorder) ([facility]) Hyperlipidemia ([facility]) Insomnia, unspecified Left carpal tunnel syndrome Migraine Nicotine dependence, cigarettes, uncomplicated Restless leg syndrome Stroke ([facility]) Past Surgical History: Procedure Laterality Date BILATERAL [...] Visit Age-related osteoporosis without current pathological fracture ([facility]) RESOLVED: Anxiety (Chronic) Current episode of major depressive disorder without prior episode ([facility]/HCC) PHQ 9=12 Current meds: none Discussed if need for grief counseling, she will think about this Essential (primary) hypertension ([facility]) (Chronic) Please check blood pressure daily and record DASH diet Limit caffeine Take medication as directed Contact office if chest pain, pressure, dizziness, shortness of breath, swelling legs Recommend slow position changes Current med: b raúl FUENTES (generalized anxiety disorder) ([facility]) Current meds: xanax FUENTES 7=11 OARRS reviewed Med agreement signed Fibromyalgia, primary (Chronic) gabapentin Hyperlipidemia, unspecified ([facility]/HCC) On statin therapy Check labs yearly and prn dose chagnes Nicotine dependence, cigarettes, uncomplicated The patient has been advised of the risks of continued smoking: stroke, OK, all forms of cancer, lung disease, and [...] diabetes mellitus with diabetic chronic kidney disease ([facility]) Check blood sugars daily, notify if <70 [...] of the risks of continued smoking: stroke, OK, all forms of cancer, lung disease, and [...] of major depressive disorder without prior episode ([facility]) PHQ 9=12 Current meds: none Discussed if need for grief counseling, she will think about this * Magdalene Goodrich NP - 02/25/2025 6:56 AM EDTAssociated Problem(s): Essential (hemorrhagic) thrombocythemia Monitor labs periodically * Magdalene Goodrich NP - 02/25/2025 6:55 AM EDTAssociated Problem(s): Type 2 diabetes mellitus with diabetic chronic kidney disease ([facility]) Check blood sugars daily, notify if <70 [...] does follow with Neurology documented in this encounterChildren's Mercy [id number] Instructions* Patient Instructions* Magdalene Goodrich NP - 02/25/2025 2:00 PM EDT No changes in meds If you would like to see a grief counselor I can get you in touch with someone please let me know documented in this encounterChildren's Mercy [id number] Telephone encounter Note* Telephone Encounter - GENA SMITH - 02/24/2025 8:42 AM EDT Text Lay Out Helper This is Lesly Mike, my dr. is Magdalene, and I need to refill on my xanax. And I have a PIN and sent to [facility]. My birthday, 1950. Thank you. [facility] [id number] Miscellaneous Notes* Telephone Encounter - GENA SMITH - 02/24/2025 8:42 AM EDT Text Lay Out Helper This is Lesly Mike, my dr. is Magdalene, and I need to refill on my xanax. And I have a PIN and sent to [place] [facility]. My birthday, 1950. Thank you. documented in this encounterChildren's Mercy [id number] History of Present illness Narrative* Andrew Church [...] Denies SI/HI. Will set patient up with [facility] * Andrew Church NP - 12/25/2024 2:17 PM ESTAssociated Problem(s): Prediabetes A1C 5.8% Currently taking Farxiga 5mg Last Eye Exam done 6 months ago- @ [place], [place] * Andrew Church NP - 12/25/2024 2:16 PM ESTAssociated Problem(s): Hyperlipidemia, unspecified (CMS/HCC) Currently taking atorvastatin 80mg Denies any myalgias. Most recent Lipid Panel Continue current regimen. * Andrew hCurch NP - 12/25/2024 2:16 PM ESTAssociated Problem(s): [...] ALBUMIN GLOBULIN RATIO 1.1 1.2 Resulting Agency [facility] Prediabetes: A1C 5.8% Currently taking Farxiga 5mg Last Eye Exam done 6 months ago- @ [place], [place] FUENTES: States she has been taking [...] Eye Exam done 6 months ago- @ [place], [place] documented in this [facility]02-11-2025 Telephone encounter Note* Telephone Encounter - Dot Figueroa MA - 12/17/2024 1:58 PM EST MARILIN:09/23/2024 NOV:12/23/2024 [facility] [id number] Miscellaneous Notes* Telephone Encounter - Dot Figueroa MA - 12/17/2024 1:58 PM EST MARILIN:09/23/2024 NOV:12/23/2024 documented in this [facility]12-09-2024 Telephone encounter Note* Telephone Encounter - Dot Figueroa MA - 10/14/2024 11:37 AM EST MARIILN:09/23/2024 NOV:12/23/2024 [facility] [id number] Miscellaneous Notes* Telephone Encounter - Dot Figueroa MA - 10/14/2024 11:37 AM EST MARILIN:09/23/2024 NOV:12/23/2024 documented in this [facility]11-19-2024 History of Present illness Narrative* Andrew Church NP - 09/24/2024 12:58 PM ESTAssociated Problem(s): Prediabetes A1C 6.1% Currently taking Farxiga 5mg Last Eye Exam done 6 months ago- @ [place], [place] * Andrew Church NP - 09/24/2024 [...] Eye Exam done 6 months ago- @ [place], [place] Was seen in ED for CVA concerns due to muscle cramps. CT head negative. Labs all WNL except reported slighlty elevated BUN/WASHER AND CRUSHER TENDER. Pt reports she was dehydrated but feels [...] Eye Exam done 6 months ago- @ [place], [place] Relevant Orders Microalbumin / creatinine urine ratio Hemoglobin A1c Comprehensive metabolic panel CBC and differential documented in this encounterChildren's Mercy [id number] Telephone encounter Note* Telephone Encounter - Dot Figueroa MA - 09/11/2024 10:08 AM EST MARILIN:07/24/2024 NOV:09/24/2024 [facility] [id number] Miscellaneous Notes* Telephone Encounter - Dot iFgueroa MA - 09/11/2024 10:08 AM EST MARILIN:07/24/2024 NOV:09/24/2024 documented in this [facility]09-18-2024 History of Present illness Narrative* Andrew [...] of preventative Care- Will request results form [facility] and Dr. Schwartz Review of Systems Constitutional: [...] of sleep per night. documented in this [facility]09-18-2024 Instructions* Patient Instructions* Andrew Church NP [...] of sleep per night. documented in this [facility]05-28-2024 [facility] Note Chief Complaint: New patient here to establish care. Ref from Dr. Schwartz for bradycardia. She had stroke last month and was admitted to [facility]. Still smokes almost 1 PPD but is trying to cut back. Says she's had mitral valve prolapse forever . Does feel palpitations at times. Thinks she used to see cardiology in [place] years ago. Denies chest pain, SOB, and [...] year ago. She used to see a crimper operator several years ago for what she [...] clinic following testing Jaron Johnson MD, MPH, [facility], [facility] Interventional Cardiology Pager Email: [email or web address]05-20-2024 Miscellaneous Notes* Telephone Encounter - Alena Palacios RN - 03/25/2024 9:55 AM EDT error [facility] [id number] Telephone encounter Note* Telephone Encounter - Alena Palacios RN - 03/25/2024 9:55 AM EDT error [facility] [id number] Miscellaneous Notes* Telephone Encounter - Alena Palacios RN - 02/12/2024 11:11 AM EDT ----- Message from Cyndie Frankel PA-C sent at 02/09/2024 1:09 PM EDT ----- Regarding: [facility] follow up. Left > R multifocal [...] and she hung up [facility] Telephone encounter Note* Telephone Encounter - Alena Palacios RN - 02/12/2024 11:11 AM EDT ----- Message from Cyndie Frankel PA-C sent at 02/09/2024 1:09 PM EDT ----- Regarding: [facility] up Hospital follow up. Left > R multifocal cerebral ischemic stroke, suspected cardioembolic. 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 Smoker. Expressive aphasia. Needs 30 day cardiac event monitor. Please arrange to be sent to patient house. 4-6 week follow up with HERNÁN/Juan/Dr. Rose/Stroke Fellow [facility]04-08-2024 Telephone encounter Note* Telephone Encounter - Dolores Leos - 02/12/2024 11:11 AM EDT Called patient and no answer, VM not set up. [facility]04-08-2024 Telephone encounter Note* Telephone Encounter - Dolores Leos - 02/12/2024 11:11 AM EDT Spoke with patient and she said to call her sister to schedule appt Called [place] and there was no answer vm was full [facility]04-08-2024 Telephone encounter Note* Telephone Encounter - Alena Palacios RN - 02/12/2024 11:11 AM EDT Dolores, when you talk to family, please let them know event monitor was sent to patient's home address and ask for patient to wear it please. [facility] [id number] Telephone encounter Note* Telephone Encounter - Dolores Leos - 02/12/2024 11:11 AM EDT Called [place] and no answer, her mailbox was full. Will try back [facility] [id number] Telephone encounter Note* Telephone Encounter - Dolores Leos - 02/12/2024 11:11 AM EDT Called [place] and the line answered only to disconnect [facility] [id number] Telephone encounter Note* Telephone Encounter - Dolores Leos - 02/12/2024 11:11 AM EDT Called [place] 2x goes straight to VM which is full and can't leave messages Called patient and she hung up [facility] [id number] Evaluation note* Encounter Date Diagnosis Assessment Notes Treatment Notes Treatment Clinical Notes Aug, LLQ abdominal pain (ICD-10 - R10 .32) Reviewed paperwork and test results from [facility] ER. She agrees she needs a colonoscopy due to ongoing blood in her stool and LLQ pain. Agrees to referral to Dr. Stevenson. Aug,Hematochezia (ICD-10 - K92.1)as above [employer] Other 04-06-2023 NotePROCEDURE: XR HIP LT 2 [...] by: RAIN HOWE Date: 2023-02-09 11:04[facility]04-04-2023 Evaluation note* Encounter Date Diagnosis Assessment [...] OARRS and reviewed pain contract brii Grace. [employer] Other Evaluation noteNo InformationNort [employer] Other Evaluation noteNoGridcentric Other Evaluation note* Diagnosis Onset Date Resolution Status Seizure acuteStrokeacute [facility] Work Phone: Evaluation note* Diagnosis Lumbar back [...] (CMS/HCC)- Primary Unspecified essential hypertension Mixed hyperlipidemia ([facility]/HCC) Mixed hyperlipidemia Nicotine dependence, cigarettes, uncomplicated Cerebrovascular accident (CVA), unspecified mechanism (CMS/HCC) Prediabetes- Primary Other abnormal glucose Essential (primary) hypertension (CMS/HCC) Unspecified essential hypertension Mixed hyperlipidemia ([facility]/HCC) Mixed hyperlipidemia FUENTES (generalized anxiety disorder) ([facility]/HCC)- Primary Generalized anxiety disorder Convulsions, unspecified convulsion type ([facility]/HCC) Essential (primary) hypertension ([facility]/HCC) Unspecified essential hypertension Mixed hyperlipidemia ([facility]/HCC) Mixed hyperlipidemia Prediabetes Other abnormal glucose documented in this encounter [facility]* Diagnosis Essential (primary) hypertension ([facility]/HCC)- Primary Unspecified essential hypertension Mixed hyperlipidemia ([facility]/HCC) Mixed hyperlipidemia Nicotine dependence, cigarettes, uncomplicated Cerebrovascular accident (CVA), unspecified mechanism (CMS/HCC) Prediabetes- Primary Other abnormal glucose Essential (primary) hypertension ([facility]/HCC) Unspecified essential hypertension Mixed hyperlipidemia ([facility]/HCC) Mixed hyperlipidemia FUENTES (generalized anxiety disorder) ([facility])- Primary Generalized anxiety disorder Convulsions, unspecified convulsion type ([facility]/HCC) Essential (primary) hypertension ([facility]/HCC) Unspecified essential hypertension Mixed hyperlipidemia ([facility]) Mixed hyperlipidemia Prediabetes Other abnormal glucose Hyperlipidemia, unspecified hyperlipidemia type ([facility]) Lumbar back pain Lumbago documented in this encounter [facility]* Diagnosis Essential (primary) hypertension ([facility]/HCC)- Primary Unspecified essential hypertension Mixed hyperlipidemia ([facility]/HCC) Mixed hyperlipidemia Nicotine dependence, cigarettes, uncomplicated Cerebrovascular accident (CVA), unspecified mechanism (CMS/HCC) Prediabetes- Primary Other abnormal glucose Essential (primary) hypertension ([facility]/HCC) Unspecified essential hypertension Mixed hyperlipidemia ([facility]/HCC) Mixed hyperlipidemia FUENTES (generalized anxiety disorder) ([facility])- Primary Generalized anxiety disorder Convulsions, unspecified convulsion type ([facility]/HCC) Essential (primary) hypertension ([facility]/HCC) Unspecified essential hypertension Mixed hyperlipidemia ([facility]/HCC) Mixed hyperlipidemia Prediabetes Other abnormal glucose Lumbar back pain Lumbago documented in this encounter [facility]* Diagnosis Essential (primary) hypertension ([facility]/HCC)- Primary Unspecified essential hypertension Mixed hyperlipidemia ([facility]/HCC) Mixed hyperlipidemia Nicotine dependence, cigarettes, uncomplicated Cerebrovascular accident (CVA), unspecified mechanism ([facility]) Prediabetes- Primary Other abnormal glucose Essential (primary) hypertension ([facility]) Unspecified essential hypertension Mixed hyperlipidemia ([facility]) Mixed hyperlipidemia FUENTES (generalized anxiety disorder) ([facility])- Primary Generalized anxiety disorder Convulsions, unspecified convulsion type ([facility]) Essential (primary) hypertension ([facility]) Unspecified essential hypertension Mixed hyperlipidemia ([facility]) Mixed hyperlipidemia Prediabetes Other abnormal glucose Restless leg syndrome Restless legs syndrome (RLS) documented in this encounter [facility]* Diagnosis Essential (primary) hypertension ([facility])- Primary Unspecified essential hypertension Mixed hyperlipidemia ([facility]) Mixed hyperlipidemia Nicotine dependence, cigarettes, uncomplicated Cerebrovascular accident (CVA), unspecified mechanism ([facility]) Prediabetes- Primary Other abnormal glucose Essential (primary) hypertension ([facility]) Unspecified essential hypertension Mixed hyperlipidemia ([facility]) Mixed hyperlipidemia FUENTES (generalized anxiety disorder) ([facility])- Primary Generalized anxiety disorder Convulsions, unspecified convulsion type ([facility]) Essential (primary) hypertension ([facility]) Unspecified essential hypertension Mixed hyperlipidemia ([facility]) Mixed hyperlipidemia Prediabetes Other abnormal glucose FUENTES (generalized anxiety disorder) ([facility]) Generalized anxiety disorder Restless leg syndrome Restless legs syndrome (RLS) Seizure ([facility])- Primary Other convulsions Type 2 diabetes mellitus with diabetic chronic kidney disease ([facility]) Essential (hemorrhagic) thrombocythemia Restless leg syndrome Restless legs syndrome (RLS) Essential (primary) hypertension ([facility]) Unspecified essential hypertension Age-related osteoporosis without current pathological fracture ([facility]) Fibromyalgia, primary Anxiety Anxiety state, unspecified Current episode of major depressive disorder without prior episode, unspecified depression episode severity ([facility]) FUENTES (generalized anxiety disorder) ([facility]) Generalized anxiety disorder Mixed hyperlipidemia ([facility]) Mixed hyperlipidemia Nicotine dependence, cigarettes, uncomplicated documented in this encounter [facility]* Diagnosis Essential (primary) hypertension ([facility])- Primary Unspecified essential hypertension Mixed hyperlipidemia ([facility]) Mixed hyperlipidemia Nicotine dependence, cigarettes, uncomplicated Cerebrovascular accident (CVA), unspecified mechanism ([facility]) Prediabetes- Primary Other abnormal glucose Essential (primary) hypertension ([facility]) Unspecified essential hypertension Mixed hyperlipidemia ([facility]) Mixed hyperlipidemia FUENTES (generalized anxiety disorder) ([facility])- Primary Generalized anxiety disorder Convulsions, unspecified convulsion type ([facility]) Essential (primary) hypertension ([facility]) Unspecified essential hypertension Mixed hyperlipidemia ([facility]) Mixed hyperlipidemia Prediabetes Other abnormal glucose Essential (primary) hypertension ([facility])- Primary Unspecified essential hypertension Type 2 diabetes mellitus with diabetic chronic kidney disease ([facility]) Essential (hemorrhagic) thrombocythemia Seizure ([facility]) Other convulsions Restless leg syndrome Restless legs syndrome (RLS) Age-related osteoporosis without current pathological fracture ([facility]) Fibromyalgia, primary Anxiety Anxiety state, unspecified Current episode of major depressive disorder without prior episode, unspecified depression episode severity ([facility]) FUENTES (generalized anxiety disorder) ([facility]) Generalized anxiety disorder Mixed hyperlipidemia ([facility]) Mixed hyperlipidemia Nicotine dependence, cigarettes, uncomplicated documented in this encounter [facility] HealthcareEvaluation note* Diagnosis Essential (primary) hypertension ([facility])- Primary Unspecified essential hypertension Mixed hyperlipidemia ([facility]) Mixed hyperlipidemia Nicotine dependence, cigarettes, uncomplicated Cerebrovascular accident (CVA), unspecified mechanism ([facility]) Prediabetes- Primary Other abnormal glucose Essential (primary) hypertension ([facility]) Unspecified essential hypertension Mixed hyperlipidemia ([facility]) Mixed hyperlipidemia FUENTES (generalized anxiety disorder) ([facility])- Primary Generalized anxiety disorder Convulsions, unspecified convulsion type ([facility]) Essential (primary) hypertension ([facility]) Unspecified essential hypertension Mixed hyperlipidemia ([facility]) Mixed hyperlipidemia Prediabetes Other abnormal glucose Essential (primary) hypertension ([facility])- Primary Unspecified essential hypertension Type 2 diabetes mellitus with diabetic chronic kidney disease ([facility]) Essential (hemorrhagic) thrombocythemia Seizure ([facility]) Other convulsions Restless leg syndrome Restless legs syndrome (RLS) Age-related osteoporosis without current pathological fracture ([facility]) Fibromyalgia, primary Anxiety Anxiety state, unspecified Current episode of major depressive disorder without prior episode, unspecified depression episode severity ([facility]) FUENTES (generalized anxiety disorder) ([facility]) Generalized anxiety disorder Mixed hyperlipidemia ([facility]) Mixed hyperlipidemia Nicotine dependence, cigarettes, uncomplicated Cerebrovascular accident (CVA), unspecified mechanism ([facility]) documented in this encounter [facility]* Diagnosis Essential (primary) hypertension ([facility])- Primary Unspecified essential hypertension Mixed hyperlipidemia ([facility]) Mixed hyperlipidemia Nicotine dependence, cigarettes, uncomplicated Cerebrovascular accident (CVA), unspecified mechanism ([facility]) Prediabetes- Primary Other abnormal glucose Essential (primary) hypertension ([facility]) Unspecified essential hypertension Mixed hyperlipidemia ([facility]) Mixed hyperlipidemia FUENTES (generalized anxiety disorder) ([facility])- Primary Generalized anxiety disorder Convulsions, unspecified convulsion type ([facility]) Essential (primary) hypertension ([facility]) Unspecified essential hypertension Mixed hyperlipidemia ([facility]) Mixed hyperlipidemia Prediabetes Other abnormal glucose Essential (primary) hypertension ([facility])- Primary Unspecified essential hypertension Type 2 diabetes mellitus with diabetic chronic kidney disease ([facility]) Essential (hemorrhagic) thrombocythemia Seizure ([facility]) Other convulsions Restless leg syndrome Restless legs syndrome (RLS) Age-related osteoporosis without current pathological fracture ([facility]) Fibromyalgia, primary Anxiety Anxiety state, unspecified Current episode of major depressive disorder without prior episode, unspecified depression episode severity ([facility]) FUENTES (generalized anxiety disorder) ([facility]) Generalized anxiety disorder Mixed hyperlipidemia ([facility]) Mixed hyperlipidemia Nicotine dependence, cigarettes, uncomplicated Lumbar back pain Lumbago documented in this encounter [facility] HealthcareEvaluation note* Diagnosis Essential (primary) hypertension ([facility])- Primary Unspecified essential hypertension Mixed hyperlipidemia ([facility]) Mixed hyperlipidemia Nicotine dependence, cigarettes, uncomplicated Cerebrovascular accident (CVA), unspecified mechanism ([facility]) Prediabetes- Primary Other abnormal glucose Essential (primary) hypertension ([facility]) Unspecified essential hypertension Mixed hyperlipidemia ([facility]) Mixed hyperlipidemia FUENTES (generalized anxiety disorder) ([facility])- Primary Generalized anxiety disorder Convulsions, unspecified convulsion type ([facility]) Essential (primary) hypertension ([facility] Unspecified essential hypertension Mixed hyperlipidemia ([facility]) Mixed hyperlipidemia Prediabetes Other abnormal glucose Essential (primary) hypertension ([facility])- Primary Unspecified essential hypertension Type 2 diabetes mellitus with diabetic chronic kidney disease ([facility]) Essential (hemorrhagic) thrombocythemia Seizure ([facility]) Other convulsions Restless leg syndrome Restless legs syndrome (RLS) Age-related osteoporosis without current pathological fracture ([facility]) Fibromyalgia, primary Anxiety Anxiety state, unspecified Current episode of major depressive disorder without prior episode, unspecified depression episode severity ([facility]) FUENTES (generalized anxiety disorder) ([facility]) Generalized anxiety disorder Mixed hyperlipidemia ([facility]) Mixed hyperlipidemia Nicotine dependence, cigarettes, uncomplicated Type 2 diabetes mellitus with stage 3a chronic kidney disease, without long-term current use of insulin (HCC) ([facility])- Primary Essential (primary) hypertension ([facility]) Unspecified essential hypertension FUENTES (generalized anxiety disorder) ([facility]) Generalized anxiety disorder Lumbar back pain Lumbago Current episode of major depressive disorder without prior episode, unspecified depression episode severity ([facility]) Nicotine dependence, cigarettes, uncomplicated UTI symptoms Convulsions, unspecified convulsion type ([facility]) documented in this encounter [facility] HealthcareEvaluation note* [...] disease, without long-term current use of insulin ([facility])- Primary Essential (primary) hypertension Unspecified essential hypertension [...] kidney diseaseacuteOctober 2024 1:10pmUTI symptomsacuteOctober 2024 1:10pm [facility] Work Phone: History general Narrative - Reported* Type Description Date Medical History Bronchitis Medical HistoryAnxiety and depressionMedical HistoryEssential hypertension Medical HistoryMigraineMedical HistoryAcute insomniaMedical EdvxptiM39 deficiencyMedical HistoryLeft temporal headacheMedical HistoryCurrent episode of major depressive disorder without prior episode, unspecified depression episode severityMedical HistorySciatic pain, rightMedical HistoryRestless leg syndrome Medical HistoryGAD (generalized anxiety disorder)Medical HistoryAbdominal pain Medical HistorySERUM LIPIDS HIGHSurgical HistoryCATARACT EXTRAXTIONSurgical HistoryTOTAL HIP ARTHROSCOPY-LEFTSurgical HistoryTOTAL HYSTERECTOMYSurgical HistoryBSOSurgical HistoryRIGHT HAND RECONSTRUCTIONHospitalization HistorySEE SURGICAL HX [facility] Other History general Narrative - ReportedNortWashington Health System brick&mobile Other Hospital Discharge instructionsAmbulatory Orders* Referral to Neurology Time Frame: 02/13/24, Location: None Selected [facility] Work Phone: InstructionsNot on filedocumented in this encounter [facility] SystemInstructionsNot on filedocumented in this encounter [facility] SystemReason for referral (narrative)No reason for referral information availableAcmc Healthcare System Work Phone: Summary Purpose Family History No [...] Needs colonosco py - had imaging in [facility] ER. Diagnosis 1 LLQ abdominal pain ( R10.32) Referral Organization [facility] santa Referring Provider First Name Robert Referring Provider Last Name Efren Referring Provider Specialty Family [facility] cine Referred Organization [facility] Referred Provider Flakito Stevenson Referred Address [address], [place],[address] Referred Provider Specialty General Surg hunter Referral Priority Routine General Notes Maida Dave 02:01:18 PM >received today, attachments made, waiting for notes to be locked Chief Complaint and Reason for Visit Chief Complaint Amb Documentation [facility] d/cReason for VisitSeizure Stroke Chief Complaint [...] (unrecogniz ed section and content) ReasonOnset DateCommentsMed Qrntcu57/01/2024ReasonCommentsMed Change Request ReasonOnset DateCommentsMed [id number]-up2 m follow upEr 09/21/24ReasonOnset DateCommentsMed [id number] CareReasonOnset DateCommentsMed Dqsrhd8811/13/2024ReasonOnset DateCommentsMed Pzduza5712/17/2024ReasonCommentsFollow-upReasonOnset DateCommentsMed Refill 01/13/2025ReasonOnset DateCommentsMed Jdpemb6702/19/2025ReasonOnset DateComments Med Mnrcxe0702/24/2025ReasonCommentsGADReasonCommentsDiabetesReasonOnset Date CommentsMed Abgfzu5305/12/2025ReasonCommentsMed Refill INFORMATION SOURCE (unrecogn ized section and content) DATE CREATED AUTHOR 02/18/[address] [facility] DATE CREATED AUTHOR AUTHOR'S ORGANIZ ATION 02/13/2024 [facility] DATE CREATED AUTHOR AUTHOR'S ORGANIZ ATION 03/28/2024 [facility] DATE CREATED AUTHOR AUTHOR'S ORGANIZ ATION 04/03/2024 [facility] DATE CREATED AUTHOR AUTHOR'S ORGANIZ ATION 09/30/2024 [facility] DATE CREATED AUTHOR AUTHOR'S ORGANIZ ATION 06/13/2025 [facility] DATE CREATED AUTHOR AUTHOR'S ORGANIZ ATION 08/17/2025 [facility] Care Teams (unrecognized sec tion [...] DateEnd Date Robert Schwartz MD [address] [facility] [place] [address] PCP - GeneralHamilton [facility] Center03/25/24Team MemberRelationshipSpecialtyStart DateEnd Date Robert Schwartz MD [address] [facility] [place] [address] [facility]CP - [facility] Medicine03/25/24Team MemberRelationshipSpecialtyStart DateEnd Date Ethan Bonilla MD [address] [place] [address] PCP - GeneralFamily Owfmclca90/10/24 Andrew Church NP [address] [place] [address] Nurse PractitionerOsceola Regional Health Centerly Iaoszwcj01/10/24Team MemberRelationshipSpecialtyStart DateEnd Date Ethan Bonilla MD [address] [place] [address] PCP - GeneralFamily Qxgcaful34/10/24 Andrew Church NP [address] [place] [address] Nurse PractitionerOsceola Regional Health Centerly Sezkvggx54/10/24Team MemberRelationshipSpecialtyStart DateEnd Date Ethan Bonilla MD [address] [place] [address] PCP - GeneralFamily Cjfxlond42/10/24 Andrew Church, MICHELLE [address] [place] [address] Nurse Practitionermily Sjaykylq50/10/24Team MemberRelationshipSpecialtyStart DateEnd Date Ethan Bonilla MD [address] [place] [address] PCP - GeneralFamily Wcuigarf44/10/24 Andrew Church, MICHELLE [address] [place] [address] Nurse Practitionermily Sxextxat13/10/24Team MemberRelationshipSpecialtyStart DateEnd Date Ethan Bonilla MD [address] [place] [address] PCP - GeneralFamily Wwroonpw18/10/24 Andrew Church, MICHELLE [address] [place] [address] Nurse Practitionermily Ouqttlfj11/10/24Team MemberRelationshipSpecialtyStart DateEnd Date Robert Schwartz MD [address] [facility] [place] [address] PCP - GeneralFamily Medicine03/25/24Team MemberRelationshipSpecialtyStart DateEnd Date Ethan Bonilla MD [address] [place] [address] PCP - GeneralFamily Mfchfces88/10/24 Andrew Church, MICHELLE [address] [place] [address] Nurse PractitionerOsceola Regional Health Centerly Axtglavj38/10/24Team MemberRelationshipSpecialtyStart DateEnd Date Robert Schwartz MD [address] [facility] [place] [address] PCP - Generalmily Medicine03/25/24Team MemberRelationshipSpecialtyStart DateEnd Date Ethan Bonilla MD [address] [place] [address] PCP - GeneralFamily Ecnobwly37/10/24 Andrew Church, MICHELLE [address] [place] [address] Nurse PractitionerOsceola Regional Health Centerly Owhkvthr69/10/24Team MemberRelationshipSpecialtyStart DateEnd Date Ethan Bonilla MD [address] [place] [address] PCP - GeneralFamily Aqpvrbxq35/10/24 Andrew Church NP [address] [place] [address] Nurse PractitionerFamily Hahjcuvh56/10/24Team MemberRelationshipSpecialtyStart DateEnd Date Saira Campbell, DO [facility] [facility], [address] [place] [address] PCP - General12/28/17Team MemberRelationshipSpecialtyStart DateEnd Date Saira Campbell, DO [address] [place] [address], [address] [place] [address] PCP - General12/28/17Team MemberRelationshipSpecialtyStart DateEnd Date Ethan Bonilla MD [address] [place] [address] PCP - GeneralFamily Krhskpij81/10/24 Andrew Church NP [address] [place] [address] Nurse Practitionermily Ggnvjghs44/10/24Team MemberRelationshipSpecialtyStart DateEnd Date Ethan Bonilla MD [address] [place] [address] PCP - GeneralFamily Nmobbnrj41/10/24 Andrew Church NP [address] [place] [address] Nurse Practitionermily Qnrpyxmj71/10/24Team MemberRelationshipSpecialtyStart DateEnd Date Ethan Bonilla MD [address] [place] [address] PCP - GeneralFamily Cokcrlme09/10/24 Andrew Church NP [address] [place] [address] Nurse PractitionerHamilton Medical Center08/15/24Team MemberRelationshipSpecialtyStart DateEnd Date Ethan Bonilla MD [address] [place] [address] PCP - [facility]08/15/24 Andrew Church NP [address] [place] [address] Nurse PractitionerHamilton Medical Center08/15/24Team MemberRelationshipSpecialtyStart DateEnd Date Ethan Bonilla MD [address] [place] [address] PCP - [facility]08/15/24 Andrew Church NP [address] [place] [address] Nurse [facility]08/15/24Team MemberRelationshipSpecialtyStart DateEnd Date Ethan Bonilla MD [address] [place] [address] PCP - [facility]08/15/24 Andrew Church NP [address] [place] [address] Nurse PractitionerHamilton Medical Center08/15/24Team MemberRelationshipSpecialtyStart DateEnd Date Ethan Bonilla MD [address] [place] [address] PCP - GeneralFamily Njxagiee46/10/24 Andrew Church NP [address] [place] [address] Nurse [facility] Xzgumwit51/10/24Team MemberRelationshipSpecialtyStart DateEnd Date Ethan Bonilla MD [address] [place] [address] PCP - [facility] Ahdcyjpx32/10/24 Andrew Church NP [address] [place] [address] Nurse PractitionerHamilton Medical Center08/15/24Team MemberRelationshipSpecialtyStart DateEnd Date Ethan Bonilla MD [address] [place] [address] PCP - Generalmi Vkcrsrlw09/10/24 Andrew Church NP [address] [place] [address] Nurse PractitionerHamilton Medical Center08/15/24Team MemberRelationshipSpecialtyStart DateEnd Date Ethan Bonilla MD [address] [place] [address] PCP - [facility] Bwwdrajh65/10/24 Andrew Church NP [address] [place] [address] Nurse PractitionerHamilton Medical Center08/15/24Team MemberRelationshipSpecialtyStart DateEnd Date Ethan Bonilla MD [address] [place] [address] PCP - GeneralFamily Ykocvomc28/10/24 Andrew Church NP [address] [place] [address] Nurse Pract[facility] Vswaxlqd70/10/24Team MemberRelationshipSpecialtyStart DateEnd Date Ethan Bonilla MD [address] [place] [address] PCP - [facility] Kzngneyk37/10/24 Andrew Church NP [address] [place] [address] Nurse PractitionerHamilton Medical Center08/15/24Team MemberRelationshipSpecialtyStart DateEnd Date Ethan Bonilla MD [address] [place] [address] PCP - Generalmi Kpbcbvbb33/10/24 Andrew Church NP [address] [place] [address] Nurse PractitionerHamilton Medical Center08/15/24Team MemberRelationshipSpecialtyStart DateEnd Date Ethan Bonilla MD [address] [place] [address] PCP - [facility] Uujxyimu22/10/24 Andrew Church NP [address] [place] [address] Nurse Pract[facility]erB[facility] Vuelnfiq66/10/24Team MemberRelationshipSpecialtyStart DateEnd Date Ethan Bonilla MD [address] [place] [address] PCP - [facility]08/15/24 Andrew Church NP [address] [place] [address] Nurse PractitionerHamilton Medical Center08/15/24Team MemberRelationshipSpecialtyStart DateEnd Date Ethan Bonilla MD [address] [place] [address] PCP - [facility]08/15/24 Andrew Church NP [address] [place] [address] Nurse [facility]08/15/24 Team Status: Active Member Role Status Dates [...] BE BASED ON THE PRIMARY CLINICAL RECORDS. [facility] [employer] [facility]. provides no warranty or guarantee of the accuracy or completeness of information in this document.
== END 2025-09-09 11:10 | disposition home or self-care (01) ==
LOC: RAD 11:11
PROVIDERS: PCP Nurse Practitioner; Visit Provider Nurse Practitioner
DX: M25.571 Pain in right ankle and joints of right foot (principal); Z91.81 History of falling; M25.572 Pain in left ankle and joints of left foot; M79.671 Pain in right foot; M19.071 Primary osteoarthritis, right ankle and foot
CPT/HCPCS: 73590; 73610; 73630

== ENCOUNTER 2025-10-23 14:58 | Outpatient (OUT) | payer MEDICARE, MEDICAID, SELFPAY ==
--- OUTSIDE RECORDS SUMMARY | 2024-10-15 08:00 | XMS_ITS ---
Author Organization [facility] in [place] Address [address] [place] [address] Care Team Providers Care Mechanical Maintenance Supervisor Name Role Phone Amie HERNANDEZ, Olga Primary Care Provider Unavailab Lakia Trujillo Unavailable [phone] REASON FOR VISIT MD Encounters Encounter Location Date Provider Diagnosis [facility] [address] [place] [address] 10/15/2024 Lakia Merida Plan Of Treatment No Information Progress Notes * Jazmin STEVEYousifOB:1950 (75 yo F)Acc No.[id number]:10/15/2024 UNLOCKED PROGRESS NOTE Progress Notes Patient: Lesly IZAGUIRRE :?Lakia Tomlin M.D.:1950???Age:74 Y ???Sex:FemaleDate:10/15/2024hone:[phone]:[id number] [place], [id number]:Olga Holloway MD Subjective: * Chief Complaints: * 1 . MD. * Medical History: Objective: * Vitals: Assessment: Plan: * Treatment: * * Electronic signature of Lakia Merida MD, [id number] on 10/23/2025 at 03:06 PM ESTSign off status: PendingVisit Status:?CANC (Cancelled) * Provider: Presley Tomlin M.D. Date: 1 12/16/2023 Generated for Printing/Faxing/eTransmitting on:?10/23/2025 03:06 PM EST
--- OUTSIDE RECORDS SUMMARY | 2024-11-19 08:15 | XMS_ITS ---
Author Organization [facility] in [place] Address [address] [place] [address] Care Team Providers Care Scullion Chief Name Role Phone Amie HERNANDEZ, Olga Primary Care Provider Unavailab Lakia Trujillo Unavailable [phone] REASON FOR VISIT MD Encounters Encounter Location Date Provider Diagnosis [facility] [address] [place] [address] 11/19/2024 Lakia Merida Plan Of Treatment No Information Progress Notes * Parish STEVEOB:1950 (75 yo F)Acc No.[id number]:11/19/2024 UNLOCKED PROGRESS NOTE Progress Notes Patient: Lesly IZAGUIRRE :?Lakia Tomlin M.D.:1950???Age:74 Y ???Sex:FemaleDate:11/19/2024Phone:[phone]:[address] [place], [id number]:Olga Holloway MD Subjective: * Chief Complaints: * 1 . MD. * Medical History: Objective: * Vitals: Assessment: Plan: * Treatment: * * Electronic signature of Lakia Merida MD, [id number] on 10/23/2025 at 03:06 PM ESTSign off status: PendingVisit Status:?CANC (Cancelled) * Provider: Presley Tomlin M.D. Date: 0 11/19/2024 Generated for Printing/Faxing/eTransmitting on:?10/23/2025 03:06 PM EST
--- OUTSIDE RECORDS SUMMARY | 2024-11-26 08:30 | XMS_ITS ---
Author Organization [facility] in [place] Address [address] [place] [address] Care Team Providers Care Shear Setter Name Role Phone Amie HERNANDEZ, Olga Primary Care Provider Unavailab Lakia Trujillo Unavailable [phone] REASON FOR VISIT MD Encounters Encounter Location Date Provider Diagnosis [facility] [address] [place] [address] 11/26/2024 Lakia Merida Plan Of Treatment No Information Progress Notes * Jazmin STEVEYousifOB:1950 (75 yo F)Acc No.[id number]:11/26/2024 UNLOCKED PROGRESS NOTE Progress Notes Patient: Lesly IZAGUIRRE :?Lakia Tomlin M.D.:1950???Age:74 Y ???Sex:FemaleDate:11/26/2024Phone:[phone]:[address] [place], [id number]:Olga Holloway MD Subjective: * Chief Complaints: * 1 . MD. * Medical History: Objective: * Vitals: Assessment: Plan: * Treatment: * * Electronic signature of Lakia Merida MD, [id number] on 10/23/2025 at 03:06 PM ESTSign off status: PendingVisit Status:?CANC (Cancelled) * Provider: Presley Tomlin M.D. Date: 0 11/26/2024 Generated for Printing/Faxing/eTransmitting on:?10/23/2025 03:06 PM EST
--- OUTSIDE RECORDS SUMMARY | 2024-12-19 09:15 | XMS_ITS ---
Author Organization [facility] in [place] Address [address] [place] [address] Care Team Providers Care Methods Analyst Name Role Phone Amie HERNANDEZ, Olga Primary Care Provider Unavailab Lakia Trujillo Unavailable [phone] REASON FOR VISIT MD Encounters Encounter Location Date Provider Diagnosis [facility] On[facility] [address] [place] [address] 12/19/2024 Lakia Merida Plan Of Treatment No Information Progress Notes * Jazmin STEVEYousifOB:1950 (75 yo F)Acc No.[id number]:12/19/2024 UNLOCKED PROGRESS NOTE Progress Notes Patient: Lesly IZAGUIRRE :?Lakia Tomlin M.D.:1950???Age:74 Y ???Sex:FemaleDate:12/19/2024Phone:[phone]:[address] [place], [id number]:Olga Holloawy MD Subjective: * Chief Complaints: * 1 . MD. * Medical History: Objective: * Vitals: Assessment: Plan: * Treatment: * * Electronic signature of Lakia Merida MD, [id number] on 10/23/2025 at 03:06 PM ESTSign off status: PendingVisit Status:?CANC (Cancelled) * Provider: Presley Tomlin M.D. Date: 0 12/19/2024 Generated for Printing/Faxing/eTransmitting on:?10/23/2025 03:06 PM EST
--- OUTSIDE RECORDS SUMMARY | 2024-12-31 08:30 | XMS_ITS ---
Author Organization The [facility] in [place] Address [address] [place] [address] Care Team Providers Care Manufacturing Process Technician Name Role Phone Amie HERNANDEZ, Olga Primary Care Provider Unavailab Lakia Trujillo Unavailable [phone] REASON FOR VISIT MD Encounters Encounter Location Date Provider Diagnosis [facility] Oncology [address] [place] [address] 12/31/2024 Lakia Merida Plan Of Treatment No Information Progress Notes * Jazmin STEVEYousifOB:1950 (75 yo F)Acc No.[id number]:12/31/2024 UNLOCKED PROGRESS NOTE Progress Notes Patient: Lesly IZAGUIRRE :?Lakia Tomlin M.D.:1950???Age:74 Y ???Sex:FemaleDate:12/31/2024Phone:[phone]:[address] [place], [place]Mhc:Olga Holloway MD Subjective: * Chief Complaints: * 1 . MD. * Medical History: Objective: * Vitals: Assessment: Plan: * Treatment: * * Electronic signature of Lakia Merida MD, [id number] on 10/23/2025 at 03:05 PM ESTSign off status: PendingVisit Status:?ANSPH (Voice) * Provider: Presley Tomlin M.D. Date: 0 12/31/2024 Generated for Printing/Faxing/eTransmitting on:?10/23/2025 03:05 PM EST
--- OUTSIDE RECORDS SUMMARY | 2025-02-25 09:00 | XMS_ITS ---
Author Organization The [facility] in [place] Address [address] [place] [address] Care Team Providers Care Aquatic Habitat Biologist Name Role Phone Amie HERNANDEZ, Olga Primary Care Provider Unavailab Lakia Trujillo Unavailable [phone] REASON FOR VISIT MD Encounters Encounter Location Date Provider Diagnosis [facility] Oncology [address] [place] [address] 02/25/2025 Lakia Merida Plan Of Treatment No Information Progress Notes * Jazmin STEVEYousifOB:1950 (75 yo F)Acc No.[id number]:02/25/2025 UNLOCKED PROGRESS NOTE Progress Notes Patient: Lesly IZAGUIRRE :?Lakia Tomlin M.D.:1950???Age:74 Y ???Sex:FemaleDate:02/25/2025Phone:[phone]:[address] [place], [place]Bbl:Olga Holloway MD Subjective: * Chief Complaints: * 1 . MD. * Medical History: Objective: * Vitals: Assessment: Plan: * Treatment: * * Electronic signature of Lakia Merida MD, [id number] on 10/23/2025 at 03:06 PM ESTSign off status: PendingVisit Status:?CANC (Cancelled) * Provider: Presley Tomlin M.D. Date: 0 02/25/2025 Generated for Printing/Faxing/eTransmitting on:?10/23/2025 03:06 PM EST
--- OUTSIDE RECORDS SUMMARY | 2025-03-11 08:15 | XMS_ITS ---
Author Organization The [facility] in [place] Address [address] [place] [address] Care Team Providers Care Lead Advisor Name Role Phone Amie HERNANDEZ, Olga Primary Care Provider Unavailab Lakia Trujillo Unavailable [phone] REASON FOR VISIT MD Encounters Encounter Location Date Provider Diagnosis [facility] Oncology [address] [place] [address] 03/11/2025 Lakia Merida Plan Of Treatment No Information Progress Notes * Jazmin STEVEYousifOB:1950 (75 yo F)Acc No.[id number]:03/11/2025 UNLOCKED PROGRESS NOTE Progress Notes Patient: Lesly IZAGUIRRE :?Lakia Tomlin M.D.:1950???Age:74 Y ???Sex:FemaleDate:03/11/2025Phone:[phone]:[address] [place], [place]Tfg:Olga Holloway MD Subjective: * Chief Complaints: * 1 . MD. * Medical History: Objective: * Vitals: Assessment: Plan: * Treatment: * * Electronic signature of Lakia Merida MD, [id number] on 10/23/2025 at 03:04 PM ESTSign off status: PendingVisit Status:?VOICEMSG (Voice) * Provider: Presley Tomlin M.D. Date: 0 03/11/2025 Generated for Printing/Faxing/eTransmitting on:?10/23/2025 03:04 PM EST
--- OUTSIDE RECORDS SUMMARY | 2025-05-20 05:30 | XMS_ITS ---
Author Organization The [facility] in [place] Address [address] [place] [address] Care Team Providers Care Marketing Development Representative Name Role Phone Amie HERNANDEZ, Olga Primary Care Provider Unavailab Lakia Trujillo Unavailable [phone] REASON FOR VISIT MD Encounters Encounter Location Date Provider Diagnosis The [facility] Oncology [address] [place] [address] 05/20/2025 Lakia Merida Plan Of Treatment No Information Progress Notes * Jazmin STEVEYousifOB:1950 (75 yo F)Acc No.[id number]:05/20/2025 UNLOCKED PROGRESS NOTE Progress Notes Patient: Lesly IZAGUIRRE :?Lakia Tomlin M.D.:1950???Age:74 Y ???Sex:FemaleDate:05/20/2025Phone:[phone]:[address] [place], [place]Ivz:Olga Holloway MD Subjective: * Chief Complaints: * 1 . MD. * Medical History: Objective: * Vitals: Assessment: Plan: * Treatment: * * Electronic signature of Lakia Merida MD, [id number] on 10/23/2025 at 03:05 PM ESTSign off status: PendingVisit Status:?CANC (Cancelled) * Provider: Presley Tomlin M.D. Date: 0 05/20/2025 Generated for Printing/Faxing/eTransmitting on:?10/23/2025 03:05 PM EST
--- OUTSIDE RECORDS SUMMARY | 2025-06-03 10:00 | XMS_ITS ---
Author Organization The [facility] in [place] Address [address] [place] [address] Care Team Providers Care Machinery Dismantler Name Role Phone Amie HERNANDEZ, Olga Primary Care Provider Unavailab Lakia Trujillo Unavailable [phone] REASON FOR VISIT MD Encounters Encounter Location Date Provider Diagnosis [facility] Oncology [address] [place] [address] 06/03/2025 Lakia Merida Plan Of Treatment No Information Progress Notes * Jazmin STEVEYousifOB:1950 (75 yo F)Acc No.[id number]:06/03/2025 UNLOCKED PROGRESS NOTE Progress Notes Patient: Lesly IZAGUIRRE :?Lakia Tomlin M.D.:1950???Age:74 Y ???Sex:FemaleDate:06/03/2025Phone:[phone]:[address] [place], [place]Tzi:Olga Holloway MD Subjective: * Chief Complaints: * 1 . MD. * Medical History: Objective: * Vitals: Assessment: Plan: * Treatment: * * Electronic signature of Lakia Merida MD, [id number] on 10/23/2025 at 03:04 PM ESTSign off status: PendingVisit Status:?ANSPH (Voice) * Provider: Presley Tomlin M.D. Date: 0 06/03/2025 Generated for Printing/Faxing/eTransmitting on:?10/23/2025 03:04 PM EST
--- OUTSIDE RECORDS SUMMARY | 2025-09-02 10:00 | XMS_ITS ---
Author Organization [facility] in [place] Address [address] [place] [address] Care Team Providers Care Twist Tester Name Role Phone Amie HERNANDEZ, Olga Primary Care Provider Unavailab Lakia Trujillo Unavailable [phone] REASON FOR VISIT MD Encounters Encounter Location Date Provider Diagnosis [facility] [address] [place] [address] 09/02/2025 Lakia Merida Plan Of Treatment No Information Progress Notes * Jazmin STEVEYousifOB:1950 (75 yo F)Acc No.[id number]:09/02/2025 UNLOCKED PROGRESS NOTE Progress Notes Patient: Lesly IZAGUIRRE :?Lakia Tomlin M.D.:1950???Age:75 Y ???Sex:FemaleDate:09/02/2025Phone:[phone]:[address] [place], [place]Cfw:Olga Holloway MD Subjective: * Chief Complaints: * 1 . MD. * Medical History: Objective: * Vitals: Assessment: Plan: * Treatment: * * Electronic signature of Lakia Merida MD, [phone] on 10/23/2025 at 03:06 PM ESTSign off status: PendingVisit Status:?PEN (Pending) * Provider: [place] Tomlin M.D. Date: Generated for Printing/Faxing/eTransmitting on:?10/23/2025 03:06 PM EST
--- OUTSIDE RECORDS SUMMARY | 2025-10-23 15:05 | XMS_ITS | Clinical Summary ---
Author Organization [facility] tem Address [facility] [id number] [address] [place] [address] Care Team Providers Care Life Skills Teacher Name Role Phone Rajendra Jc DO Primary Care Provider Matt labjem Allergies Active AllergyReactionsCriticalityNoted DateCommentsPhenytoin Sodium Extended YwgbWwr30/02/9891OuzwmntxptyWlwoUcy28/02/8248NybxoutivrclwAuexBav90/02/2021 Medications MedicationSigDispense QuantityRefillsLast FilledStart DateEnd DateStatus baclofen [...] DateDiagnosed DateDrug-induced acute pancreatitis without infection or pwcyacxd08/03/2021pigastric pain04/08/2021igarette soznok8204/08/2021hronic narcotic use04/08/2021eizuresHypertensionGlaucomaGERD (gastroesophageal reflux disease)Fibromyalgia, primaryEczemaArthritisAnxiety Family History Medical HistoryRelationNameCommentsCOPDMotherDiabetesMotherHeart diseaseSister RelationNameStatusCommentsFatherDeceasedMotherDeceasedSisterAlive Social History Tobacco UseTypesPacks/DayYears UsedDateSmoking Tobacco: Every RyyRndcltcwzz903 Smokeless Tobacco: Never Tobacco Cessation:Ready to Q uit: Yes; Counseling Given: Yes Alcohol UseStandard Drinks/WeekCommentsNo0 (1 standard drink = 0.6 oz pure alcohol)ChildcareAnswerDate YbwmnqmjOiwtilrqqGviajkk30/11/2019EmploymentAnswer Date MjouynktZbssmqlktjQfmvbke72/11/2019Purpose - LifeAnswerDate RecordedPurpose and direction in ogzfLmkfguc77/10/2021CommentsNoSex and Gender InformationValueDate RecordedSex Assigned at BirthNot on fileLegal SexFemale 06/09/2015 5:52 PM EDTGender IdentityNot on fileSexual OrientationNot on file Last Filed Vital Signs Vital SignReadingTime TakenCommentsBlood Cddtcxxs077/52004/10/2021 12:18 PM EDT Zpgxs774904/10/2021 12:18 PM MSTQoazxbhrzko08.2 ??C (99 ??F)04/10/2021 8:00 AM EDT Respiratory Aicq493804/10/2021 8:00 AM EDTOxygen Sfgydoobab04%04/10/2021 8:00 AM EDTInhaled Oxygen Concentration--Qjylns95.5 kg (153 lb 4.8 oz)04/10/2021 4:00 AM OGPVeadve739.6 cm (5' 4 )04/06/2021 2:01 AM EDTBody Mass Index26.31004/06/2021 2:01 AM EDT Plan of Treatment Health MaintenanceDue DateLast DoneCommentsDepression Aqdihgdwl07/14/1960Tobacco Ctyasynns68/14/1960DTaP,Tdap and Td Vaccines (1 - Tdap)1967Zoster (Shingles) Vaccine (1 of 2)1998Fall Risk Zxxruiteh64/14/2013RSV ( or age 60+ yrs) (1 - 1-dose 75+ series)2023Influenza Nrqyixe3307/07/2025 07/17/2023, 08/10/2022, 08/11/2021, Additional history exists Medical Devices Not on file Insurance * Guarantor: Lesly Steve TypeRelation to PatientDate of BirthPhone Billing AddressPersonal/AjaepyBrgx[address] [address] Advance Directives * Full Code (Latest Code Status on File) Date ActivatedDate InactivatedComments04/06/2021 3:19 AM04/10/2021 6:20 PM Care Teams Team MemberRelationshipSpecialtyStart DateEnd Date Rajendra Jc DO PCP - General12/28/17
--- OUTSIDE RECORDS SUMMARY | 2025-10-23 15:05 | XMS_ITS | Patient Health Record ---
Author Organization [facility] Address [address] [place] [address] Care Team Providers Care Chairman President And Chief Executive Officer Name Role Phone Olga Holloway M.D. Primary Care Provider Unavail able [place] Unavailable [phone] Vincent Mckee DO Unavailable Unavailable Allergies Allergen (clinical drug ingredient) Drug/Non Drug Allergy documented on EMR Reaction Allergy Type Onset Date Status phenobarbital phenobarbital Unknown Drug Allergy ActivePenicillinUnknownDrug AllergyActivenickelUnknownDrug AllergyActivestaples UnknownDrug AllergyActive Reason For Referral No Information Medications Medication SIG (Take, Route, Frequency, Duration) Notes Start Date End Date Status Percocet ActivelisinoprilActiveDepakote (obsolete)ActiveDULoxetineActivelatanoprost ophthalmicActivenabumetoneActiveMetoprolol TartrateActiveoxyBUTYninActive ALPRAZolamActivesimvastatinActiverOPINIRoleActive Social History Tobacco Use: Social History Observation Description Date Details (start date - stop date) Current Smoker NA - NA Smoking History Question Answer Notes Smoking Status Current Smoker Problems Problem Type SNOMED Code ICD Code Onset Dates Problem Status W/U Status Risk Notes Problem History of musculosk eletal operation (320646051) Aftercare following joint replacement surgery (Z47.1) ActiveconfirmedProblemDisorder of joint of right shoulder region (disorder) (81267550730013349)Other specific arthropathies, not elsewhere classified, right shoulder (M12.811)ActiveconfirmedProblemRupture of right rotator cuff (24390351251853829)Unspecified rotator cuff tear or rupture of right shoulder, not specified as traumatic (M75.101)ActiveconfirmedProblemPresence of orthopedic joint implant (110476742)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) ActiveconfirmedProblemLocalized, primary osteoarthritis of the shoulder region (641279355)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)Activeconfirmed ProblemBicipital tenosynovitis (14050494)Biceps tendinitis of right shoulder (M75.21)Activeconfirmed Plan Of Treatment No Information Insurance Providers Payer Name Payer Address Payer Phone Subscriber Number Group Number Insured Name Patient Relationship to Insured Coverage Start Date Coverage End Date Medicare [employer] [address] [place] [address] [id number] SHYLAMATEO PINEDA Self - patient is the insured [place] Dept of [address] [place] [id number] NAYELY MANSFIELDelf - patient is the insured Medical (General) History Medical History History ICD Code Asthma/COPD No, Respiratory problems: No,Lung Disease: No,Cancer No,Problems with Anesthesia No, Malignant Hyperthermia: No,Heart Attack: No,Heart problems: No,Hypothyroidism: No,Seizures: Yes,Diabetes No,GI Problems: No,Stroke: No,Blood Clots: No,High Blood Pressure: Yes,Depression Yes,Mental Illness: No,Anxiety: Yes,Have you ever had or presently have MRSA? No,Hepatitis: No,Have you been in close contact with someone who has had MRSA within the last year? No,Pacemaker or AICD NoLatex Allergy No,Drug Allergies: Yes,Are you a healthcare worker? No,Surgical History Surgery Date(Month/Year) Right reverse total shoulder replacement 09/19/2019 Neck 2010 Right hand arthroplasty 2008 Right Hand Reconstruction 2005 Polypectomy 2004 Hysterectomy 1998 Left ankle 1984
--- OUTSIDE RECORDS SUMMARY | 2025-10-23 15:05 | XMS_ITS | Patient Health Record ---
Author Organization [facility] [place] Address [address] [place] [address] Care Team Providers Care Marketing Intern Name Role Phone Olga Holloway MD Primary Care Provider Lakia Castellanos Unavailable [phone] Allergies Allergen (clinical drug ingredient) Drug/Non Drug Allergy documented on EMR Reaction Allergy Type Onset Date Status phenytoin Dilantin Unknown Drug Allergy ActiveZincUnknownDrug AllergyActivenickelNickelUnknownAllergyActivephenobarbital PhenobarbitalUnknownDrug AllergyActivePenicillinUnknownDrug AllergyActive Results Component Value Reference Range Notes FERRITIN (Not yet reviewed b y provider) Interpretation: Performing Lab: Notes/Report: [facility] , Ferritin 120.0 8.0-252.0 ng/mL Performing Lab:see noteML - [facility] LBFOLATE (Not yet reviewed by provider) Interpretation: Performing Lab: Notes/Report: [facility] ,Eqlsqm38.008.60-58.90 ng/mLPerforming Lab:see noteML - [facility] LB IRON AND TIBC (Not yet reviewed by provider) Interpretation: Performing Lab: Notes/Report: [facility] ,Iron87.050.0-170.0 ug/dLTotal Iron Binding Dbgxcnhm020.0250.0-450.0 ug/dL Percent Iron Yvwvdudhxb53.7Performing Lab:see noteML - [facility] PROF 14(COMP METB) (Not yet reviewed by provider) Interpretation: Performing Lab: Notes/Report: [facility] ,Whlovu420432-221 mmol/LPotassium4.13.5-5.1 mmol/BKbizhhlt24900-608 mmol/LCarbon Nwceurt82.521.0-32.0 mmol/LAnion Gap13.2Izinefm9538-664 mg/dLBlood Urea Nitrogen 20.07.0-18.0 mg/dLCreatinine0.910.55-1.02 mg/dLEstimated GFR ( Eloisa>60 >=60 mL/min/1.73m 2Estimated GFR (Non- Micheline>60>=60 mL/min/1.73m 2BUN Creatinine Ratio22.6Orqicfo6.38.5-10.1 mg/dLBilirubin Total0.60.2-1.0 mg/dL Aspartate Amino Dicaoecgyde7423-15 U/LAlanine Xeadmitywyupqdxu8081-70 U/L Alkaline Wuijyrkwupp29346-746 U/LTotal Protein7.36.4-8.2 g/dLAlbumin Level3.8 3.4-5.0 g/dLGlobulin3.5Albumin Globulin Ratio1.1Performing Lab:see noteML - LBCBC AUTO DIFF (Not yet reviewed by provider) Interpretation: Performing Lab: Notes/Report: [facility] ,White Blood Count6.24.0-11.0 10 3/uLRed Blood Count4.594.20-5.40 10 6/uL Uzabfbxaud55.012.0-16.0 g/mPPmmtungjvr59.036.0-48.0 %Mean Corpuscular Volume 104.681.0-99.0 fLMean Corpuscular Odpbdytwxn77.926.7-34.0 pgMean Corpuscular HGB Conc33.329.9-35.2 g/dLRed Cell Distribution Width13.411.0-15.0 %Platelet Count 865901-704 10 3/uLMean Platelet Daiwuj77.89.5-13.5 fLNeutrophils Percent Auto 55.943.0-75.0 %Lymphocytes Percent Auto32.420.5-60.0 %Monocytes Percent Auto8.2 1.7-12.0 %Eosinophils Percent Auto2.70.9-7.0 %Basophils Percent Auto0.50.2-2.0 % Immature Granulocytes Pct Auto0.30.0-0.5 %Neutrophils Absolute Auto3.51.4-6.5 10 3/uLLymphocytes Absolute Auto2.01.2-3.8 10 3/uLMonocytes Absolute Auto0.50.3-0.8 10 3/uLEosinophils Absolute Auto0.20.0-0.7 10 3/uLBasophils Absolute Auto0.00.0- 0.1 10 3/uLImmature Granulocytes Abs Auto0.020.00-0.03 10 3/uLPerforming Lab:see noteML - [facility] LBFERRITIN (Not yet reviewed by provider) Interpretation: Performing Lab: Notes/Report: [facility] ,Ihbvoalx33.08.0-252.0 ng/mLPerforming Lab:see note - LB FOLATE (Not yet reviewed by provider) Interpretation: Performing Lab: Notes/Report: [facility] ,Eljxtk97.408.60-58.90 ng/mLPerforming Lab:see note - [facility] PROF CHEM 8 (BAS METB) (Not yet reviewed by provider) Interpretation: Performing Lab: Notes/Report: [facility] ,Amhshe399131-906 mmol/LPotassium4.73.5-5.1 mmol/AFofftqbn27970-173 mmol/LCarbon Rgplffu09.221.0-32.0 mmol/LAnion Gap13.5Opcrlji6309-141 mg/dLBlood Urea Nitrogen 18.07.0-18.0 mg/dLCreatinine0.840.55-1.02 mg/dLEstimated GFR ( Eloisa>60 >=60 mL/min/1.73m 2Estimated GFR (Non- Micheline>60>=60 mL/min/1.73m 2BUN Creatinine Ratio21.0Yqdfaft7.18.5-10.1 mg/dLPerforming Lab:see note - LBVitamin B12 (Not yet reviewed by provider) Interpretation: Performing Lab: Notes/Report: [facility] ,Vitamin B66578444-1559 pg/mL Performed at: - [facility] [id number] Printing Assistant: Sylvain Ralph PhD, Phone: [phone] Performing Lab:see noteLC - [facility] LBCBC AUTO DIFF (Not yet reviewed by provider) Interpretation: Performing Lab: Notes/Report: [facility] ,White Blood Count7.24.0-11.0 10 3/uLRed Blood Count4.874.20-5.40 10 6/uL Kihjkliaum21.712.0-16.0 g/cCNieomyqykn74.036.0-48.0 %Mean Corpuscular Volume 102.781.0-99.0 fLMean Corpuscular Talxoxfjnk23.326.7-34.0 pgMean Corpuscular HGB Conc33.429.9-35.2 g/dLRed Cell Distribution Width13.711.0-15.0 %Platelet Count 176818-542 10 3/uLMean Platelet Ehujgg01.89.5-13.5 fLNeutrophils Percent Auto 50.743.0-75.0 %Lymphocytes Percent Auto35.320.5-60.0 %Monocytes Percent Auto9.5 1.7-12.0 %Eosinophils Percent Auto3.80.9-7.0 %Basophils Percent Auto0.40.2-2.0 % Immature Granulocytes Pct Auto0.30.0-0.5 %Neutrophils Absolute Auto3.61.4-6.5 10 3/uLLymphocytes Absolute Auto2.51.2-3.8 10 3/uLMonocytes Absolute Auto0.70.3-0.8 10 3/uLEosinophils Absolute Auto0.30.0-0.7 10 3/uLBasophils Absolute Auto0.00.0- 0.1 10 3/uLImmature Granulocytes Abs Auto0.020.00-0.03 10 3/uLPerforming Lab:see noteML - [facility] LBFERRITIN (Not yet reviewed by provider) Interpretation: Performing Lab: Notes/Report: [facility] ,Ownbbwqo154.08.0-252.0 ng/mLPerforming Lab:see noteML - [facility] LBIRON AND TIBC (Not yet reviewed by provider) Interpretation: Performing Lab: Notes/Report: [facility] ,Zcgn287.050.0-170.0 ug/dLTotal Iron Binding Xpzsrybc286.0250.0-450.0 ug/dL Percent Iron Adqzacblvb86.4Performing Lab:see note - LB PROF 14(COMP METB) (Not yet reviewed by provider) Interpretation: Performing Lab: Notes/Report: [facility] ,Qjfbrm367772-853 mmol/LPotassium4.53.5-5.1 mmol/TTjmxjiah28256-341 mmol/LCarbon Ozcxury91.721.0-32.0 mmol/LAnion Gap11.7Pwfzczd46892-215 mg/dLBlood Urea Oazxokwr03.07.0-18.0 mg/dLCreatinine0.870.55-1.02 mg/dLEstimated GFR ( Eloisa>60>=60 mL/min/1.73m 2Estimated GFR (Non- Micheline>60>=60 mL/min/1.73m 2BUN Creatinine Ratio26.6Mlbfwcz0.68.5-10.1 mg/dLBilirubin Total0.60.2-1.0 mg/dL Aspartate Amino Msnvcmwztwk6838-38 U/LAlanine Opmevglxyhfaonjm7433-42 U/L Alkaline Rpwjmojgptm9973-245 U/LTotal Protein7.66.4-8.2 g/dLAlbumin Level4.03.4- 5.0 g/dLGlobulin3.6Albumin Globulin Ratio1.1Performing Lab:[facility] LBVITAMIN D 25 [place] (Not yet reviewed by provider) Interpretation: Performing Lab: Notes/Report: ,Vitamin D33.1 <20 ng/mL Vit D deficient 20-<30 ng/mL Vit D insufficient 30-100 ng/mL Vit D sufficient >100 ng/mL Potential Toxicity Performing Lab:see note - LBVitamin B12 (Not yet reviewed by provider) Interpretation: Performing Lab: Notes/Report: [facility] ,Vitamin Q71620152-6053 pg/mL Performed at: - [facility] [address] [id number] Printing Assistant: Sylvain Ralhp PhD, Phone: [phone] Performing Lab:see note - [facility] LBIRON AND TIBC (Not yet reviewed by provider) Interpretation: Performing Lab: Notes/Report: [facility] ,Iron77.050.0-170.0 ug/dLTotal Iron Binding Uwlesgva331.0250.0-450.0 ug/dL Percent Iron Qyjmpyyqhv84.2Performing Lab:see noteML - [facility] LB Vitamin B12 (Not yet reviewed by provider) Interpretation: Performing Lab: Notes/Report: [facility] ,Vitamin [id number] pg/mL Performed at: - [facility] [id number] Printing Assistant: Sylvain Ralph PhD, Phone: [phone] Performing Lab:see noteLC - [facility] LBCBC AUTO DIFF (Not yet reviewed by provider) Interpretation: Performing Lab: Notes/Report: [facility] ,White Blood Count8.24.0-11.0 10 3/uLRed Blood Count4.624.20-5.40 10 6/uL Iozdvhryco83.312.0-16.0 g/aMMncjddfmay84.936.0-48.0 %Mean Corpuscular Wazwrj16.4 81.0-99.0 fLMean Corpuscular Hdbhajbowx46.126.7-34.0 pgMean Corpuscular HGB Conc 33.329.9-35.2 g/dLRed Cell Distribution Width16.111.0-15.0 %Platelet Wsjbv785 150-450 10 3/uLMean Platelet Xgnanr86.69.5-13.5 fLNeutrophils Percent Auto59.1 43.0-75.0 %Lymphocytes Percent Auto31.420.5-60.0 %Monocytes Percent Auto6.91.7- 12.0 %Eosinophils Percent Auto2.20.9-7.0 %Basophils Percent Auto0.20.2-2.0 % Immature Granulocytes Pct Auto0.20.0-0.5 %Neutrophils Absolute Auto4.81.4-6.5 10 3/uLLymphocytes Absolute Auto2.61.2-3.8 10 3/uLMonocytes Absolute Auto0.60.3-0.8 10 3/uLEosinophils Absolute Auto0.20.0-0.7 10 3/uLBasophils Absolute Auto0.00.0- 0.1 10 3/uLImmature Granulocytes Abs Auto0.020.00-0.03 10 3/uLPerforming Lab:see noteML - LB Reason For Referral No Information Medications Medication SIG (Take, Route, Frequency, Duration) Notes Start Date End Date Status oxyBUTYnin Chloride 5 MG 1 tablet Orally three t imes daily as needed ActivePercocet 7.5-325 MG1 tablet as needed Orally three times daily as needed ActiverOPINIRole HCl 0.5 MG1 tablet 1 to 3 hours before bedtime Orally Once a dayActiveSimvastatin 40 MG1 tablet in the evening Orally Once a dayActive ALPRAZolam 1 MG1 tablet Orally Twice a dayActivebusPIRone HCl 10 MG1 tablet Orally Twice a dayActiveGabapentin 300 MG1 capsule Orally three times daily ActiveHyoscyamineActivelevETIRAcetam 500 MG1 tablet Orally every 12 hrsActive Metoprolol Tartrate 25 MG1 tablet with food Orally Twice a dayActiveOndansetron 4 MG1 tablet on the tongue and allow to dissolve Orally Once a dayActive Problems Problem Type SNOMED Code ICD Code Onset Dates Problem Status W/U Status Risk Notes Problem Gastroesophageal ref lux disease (815171228) GERD (gastroesophageal reflux disease) (K21.9) ActiveconfirmedProblemEssential hypertension (41831247)BP (high blood pressure) (I10)ActiveconfirmedProblemAcquired thrombocytopenia (93233778)Acquired thrombocytopenia (D69.6)Activeconfirmed Encounters Encounter Location Date Provider Diagnosis [facility] [address] [place] [facility] [place] [address] 12/31/2024 Lakia Merida [address] [place] [facility] [place] [address]/04/20[facility] [address] [place] [address]/[facility] [address] [place] [place] [address]/kyle Merida Plan Of Treatment Pending Test Test Name Order Date CBC AUTO DIFF 04/09/2024 CBC AUTO DIFF 05/21/2024 CBC AUTO DIFF 07/23/2024 CBC AUTO DIFF 08/13/2024 CBC AUTO DIFF 03/11/2025 CBC AUTO DIFF 05/30/2025 CBC AUTO DIFF 08/28/2025 CRP 05/21/2024 CRP 04/09/2024 FERRITIN 04/09/2024 FERRITIN 05/21/2024 FERRITIN 05/30/2025 FERRITIN 03/11/2025 FERRITIN 08/13/2024 FERRITIN 07/23/2024 FERRITIN 08/28/2025 FOLATE 08/13/2024 FOLATE 03/11/2025 FOLATE 05/30/2025 IRON AND TIBC 08/13/2024 IRON AND TIBC 03/11/2025 IRON AND TIBC 07/23/2024 IRON AND TIBC 05/21/2024 IRON AND TIBC 04/09/2024 IRON AND TIBC 05/30/2025 IRON AND TIBC 08/28/2025 LAB TESTING 04/09/2024 LAB TESTING 04/09/2024 LAB TESTING 04/09/2024 MAGNESIUM 08/13/2024 PROF 14(COMP METB) 08/13/2024 PROF 14(COMP METB) 03/11/2025 PROF 14(COMP METB) 07/23/2024 PROF 14(COMP METB) 08/28/2025 PROF CHEM 8 (BAS METB) 05/21/2024 PROF CHEM 8 (BAS METB) 05/30/2025 VITAMIN D 25 [place] 08/28/2025 Erythrocyte Sedimentation Rate 4 Erythrocyte Sedimentation Rate 4 Beta-2 Glycoprotein I Ab,G,A,M 4 Vitamin B12 05/30/2025 Vitamin B12 03/11/2025 Vitamin B12 08/13/2024 Vitamin B12 08/28/2025 Insurance Providers Payer Name Payer Address Payer Phone Subscriber Number Group Number Insured Name Patient Relationship to Insured Coverage Start Date Coverage End Date LATONIA SANTAMARIA DUAL [employer]V PRIMARY MEDICARE [address] [place] [address] [id number] [facility]Les[facility] [place] Self - patient is the insured MEDICAID [place] [address] OFFICE OF [place], [place] [id number] [phone], SandraSelf - patient is the [id number] 2023 Medical (General) History Medical History History ICD Code Anxiety and depression F41.9 Essential hypertension I10 Abdominal pain R10.9 Blood in stool K92.1 Surgical History Surgery Date(Month/Year) cataract extraction total hip arthroscopy - lefttotal hysterectomyright hand reconstruction
--- OUTSIDE RECORDS SUMMARY | 2025-10-23 15:05 | XMS_ITS | Clinical Summary ---
Author Organization [facility] Address [address] [place] [address] Care Team Providers Care It Architecture Consultant Name Role Phone Olga Holloway MD Primary Care Provider [phone] Allergies Active AllergyReactionsCriticalityNoted DateCommentsNickelOther,Unknown 02/13/2024enicillinsHives,Rash,ExnszElq43/02/2021henobarbitalOther,RashLow 04/07/2021henytoinOther,Rash,IlgahssUtl85/02/7309SjjiWvhbj30/09/2024 Medications MedicationSigDispense QuantityRefillsLast FilledStart DateEnd DateStatus atorvastatin (Lipitor) 80 mg tablet Take 80 mg by mouth at bedtime.03/25/2024ctive aspirin 325 mg EC tablet Take 325 mg by mouth in the morning.03/07/2024ctive levETIRAcetam (Keppra) 500 mg tablet Take 1 tablet by mouth twice a day.04/10/2021ctive rOPINIRole (Requip) 0.5 mg tablet Take 0.5 mg by mouth.Active Active Problems ProblemNoted DateDiagnosed HwedKiprszc00/28/3924Sjlylaeoc51/28/1557Z66 pebrwodbws29/28/2024urrent episode of major depressive disorder without prior hstxnax8504/02/20245349Wrmymk42/28/2024Essential (primary) pkdvglqgiptu76/28/2024 Fibromyalgia, qavtnte9604/02/2024GAD (generalized anxiety disorder)04/02/2024GERD (gastroesophageal reflux disease)04/02/20241358Swwfanyl67/28/2024Hyperlipidemia, zovcmbikbuo16/28/2024Insomnia, edrzijbzycs07/28/2024Left carpal tunnel syndrome 04/02/2024Lumbar back pain04/02/20242308Mxyzyfnm63/28/2024Nicotine dependence, cigarettes, akkdjbaibcynu23/28/2024estless leg sbnhckoy04/28/2024phasia 03/21/20248189Uxqpirf88/16/7455Vsbfou21/16/2024hronic narcotic use04/08/2021 Cigarette edwkuk8904/08/2021rug-induced acute pancreatitis without infection or ctoxvshh44/03/2021pigastric pain04/08/2021ge-related osteoporosis without current pathological uwcijtxo44/29/2018Epilepsy, unspecified, not intractable, without status ncvibtxuhwa30/29/2018 Social History Tobacco UseTypesPacks/DayYears UsedDateSmoking Tobacco: Every DayCigarettes Smokeless Tobacco: NeverAlcohol UseStandard Drinks/WeekCommentsNot Currently0 (1 standard drink = 0.6 oz pure alcohol)UT Safety & EnvironmentAnswerDate Recorded Fear of Current or Ex-PartnerNot on file02/20/2024Emotionally AbusedNot on file 02/20/2024hysically AbusedNot on file02/20/2024Sexually AbusedNot on file 02/20/2024hysically or Sexually AbusedNot on file02/20/2024Comments UnknownSex and Gender InformationValueDate RecordedSex Assigned at BirthNot on fileLegal GotLhjyio63/16/2024 9:26 AM EDTGender IdentityNot on fileSexual OrientationNot on file Last Filed Vital Signs Vital SignReadingTime TakenCommentsBlood Cstencpu274/70004/02/2024 2:05 PM EDT Vvtxl2224/28/2024 2:05 PM EDTTemperature--Respiratory Rate--Oxygen Uozetgbxfo59% 04/02/2024 2:05 PM EDTInhaled Oxygen Concentration--Hplimd29.7 kg (125 lb) 04/02/2024 2:05 PM PLZDqkidl780.6 cm (5' 4 )04/02/2024 2:05 PM EDTBody Mass Index21.46004/02/2024 2:05 PM EDT Plan of Treatment Health MaintenanceDue DateLast DoneCommentsMedicare Annual Wellness (AWV) 1950Depression Fkxilvthu64/14/1960Adult Sbijuwa7706/19/1970Zoster Vaccines (1 of 2)1998Fall Risk Baoimgobv07/14/2013Pneumococcal Vaccine: 50+ Years (2 of 2 - [...] complete this [place] [address] Care Teams Team MemberRelationshipSpecialtyStart DateEnd Date Olga Holloway MD [address] [facility] #A [facility]04/02/24
--- OUTSIDE RECORDS SUMMARY | 2025-10-23 15:07 | XMS_ITS | Clinical Summary ---
Author Organization [facility] Address [address] [facility] [place] [address] Care Team Providers Care [employer] Inspector Name Role Phone Ethan Bonilla MD Primary Care Provider [phone] Keira Church TOBACCO CHECKOUT CLERK Unavailable [phone] Allergies Active AllergyReactionsCriticalityNoted JhlzTscemsctQasyyxIzhhnub71/16/2024 Penicillin G Paazwpnstb77/16/2024PenicillinsRash,LqtlvrzVwq78/02/2021 PhenobarbitalRash,CxyuuasCqn55/02/0278OcogddeoaOmvzkuc76/16/2024Phenytoin Sodium SqskbkrdDfxtIhh98/02/2021Zinc Lelbeem1303/21/2024 Medications MedicationSigDispense QuantityRefillsLast FilledStart DateEnd DateStatus hydroxyurea (Hydrea) 500 MG capsule Take 500 mg by mouth Daily.04/23/2024ctive latanoprost (Xalatan) 0.005 % ophthalmic solution INSTILL 1 DROP IN EACH EYE EVERY DAY AT YLIXUOE6105/17/2024ctive aspirin 325 MG EC tablet Indications:Cerebrovascular accident (CVA), unspecified mechanism (HCC)Take 1 tablet (325 mg) by mouth Daily 30 tablet 4Active dapagliflozin (Farxiga) 5 MG Indications:Type 2 diabetes mellitus with chronic kidney disease, 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, unspecified CKD stage (HCC)Take 1 tablet (5 mg) by mouth Daily 30 tablet 4Active metoprolol tartrate (Lopressor) 25 MG tablet Indications:Cerebrovascular [...] tablet 5Active Active Problems ProblemNoted DateDiagnosed DateUTI tipcpsfm86/05/2025 Assessment & Plan (04/10/2025 2:51 PM EDT): Will treat with macrobid Fu if not better Type 2 diabetes mellitus with diabetic chronic kidney blvlxtk5002/25/2025 Assessment & Plan (06/10/2025 6:44 AM EDT): [...] farxiga A1c: 5.8 on 12/20/24 Essential (hemorrhagic) wdpikhjfotvuokk91/22/2025 Assessment & Plan (02/25/2025 6:56 AM EDT): [...] 6-8 hours of sleep per night. B12 btmkttscdo36/28/2024urrent episode of major depressive disorder without prior rkbpgyi9804/02/2024 Assessment & Plan (04/10/2025 2:51 PM EDT): At last appt, we discussed if need for grief counseling, she will think about this Current meds: none Overall feels she is doing better Assessment & Plan (02/25/2025 5:24 PM EDT): PHQ 9=12 Current meds: none Discussed if need for grief counseling, she will think about this Ndxknu5404/02/2024Essential (primary) etwkiovtdbsx90/28/2024 Assessment & Plan (06/10/2025 1:38 PM EDT): [...] Denies SI/HI. Will set patient up with [facility] Fibromyalgia, tptbdik2204/02/2024 Assessment & Plan (06/10/2025 6:44 AM EDT): gabapentin Assessment & Plan (02/25/2025 5:23 PM EDT): gabapentin GERD (gastroesophageal reflux disease)04/02/20241587Gfuxxmuf55/28/2024 Hyperlipidemia, brasyuesvmn10/28/2024 Assessment & Plan (02/25/2025 6:57 AM EDT): [...] Check Lipid Panel Continue current regimen. Insomnia, pidafexwfee89/28/2024Left carpal tunnel bjzvmrua65/28/2024Lumbar back pain04/02/2024 Assessment & Plan (04/10/2025 2:52 PM EDT): Takes percocet 7.5 BID Recommend pain mgmt, she is asking to wait about 2 months Is working out social security etc Craszdrp63/28/2024Nicotine dependence, cigarettes, jiqtebnhixbdg21/28/2024 Assessment & Plan (06/10/2025 6:44 AM EDT): The patient has been advised of the risks of continued smoking: stroke, NH, all forms of cancer, lung disease, and [...] of the risks of continued smoking: stroke, NH, all forms of cancer, lung disease, and [...] of the risks of continued smoking: stroke, NH, all forms of cancer, lung disease, and [...] EDT): Smoking cessation counseling provided. Restless leg uefrhwbd67/28/2024 Assessment & Plan (02/25/2025 6:54 AM EDT): Is currently taking ropinirole Vrdsmv7203/21/2024 Assessment & Plan (07/24/2024 6:48 PM EDT): Had CVA in 02/[address] Barber and Dr. Johnson Cardiolgy Dgfnxdf8903/21/20247252Aqwcfje64/16/2024 Assessment & Plan (02/25/2025 6:53 AM EDT): Current meds: keppra BID does follow with Neurology Drug-induced acute pancreatitis without infection or necrosis ([facility]) 04/08/2021ge-related osteoporosis without current pathological fracture 09/03/2018 Resolved Problems ProblemNoted DateDiagnosed DateResolved DateType 2 diabetes mellitus with chronic kidney disease, without long-term current use of wealdek8409/23/2024 12/25/2024 Assessment & Plan (09/24/2024 12:58 PM EST): Rmtvyfjllgb28 Assessment & Plan (12/25/2024 2:17 PM EST): A1C 5.8% Currently taking Farxiga 5mg Last Eye Exam done 6 months ago- @ [place], [place] Assessment & Plan (09/24/2024 12:58 PM EST): A1C 6.1% Currently taking Farxiga 5mg Last Eye Exam done 6 months ago- @ [place], [place] Aftercare following joint replacement rfrsefy78Presence of right artificial shoulder jointnxiety Unspecified rtldfveiqfp37 Encounters DateTypeDepartmentCare JajlBnerstnilgw66/18/2025amboo flowsheet [facility] [address] [address] Travis Moses PA 09/23/20252050Qgcyqc42/29/2025Orders Only [facility] [address] [address] Magdalene Goodrich NP from Last 3 Months Immunizations ImmunizationAdministration DatesNext DueInfluenza, High Dose Seasonal, Preservative Free07/20/2020,07/13/2018Influenza, High-dose Seasonal, Quadrivalent, Preservative Free08/10/2022,08/11/2021Influenza, Seasonal, Quadrivalent, Hteqfgxhbr23/11/2023Influenza, seasonal, khnxasfuew52/14/2024 Influenza, trivalent, fwvlcwkogl74/19/2019Novel pixwegnex-U7V8-06, preservative-free10/23/2009Pneumococcal Polysaccharide NRMR1806/05/2014, 04/06/2008Unknown outside cucntbvijyjw58/10/2020 Family History Medical HistoryRelationNameCommentsHeart attackBrotherHypertensionBrotherNo Known ProblemsFatherDiabetesMaternal GrandmotherCancerMotherDiabetesMother RelationNameStatusCommentsBrotherFatherMaternal GrandmotherMother Social History Tobacco UseTypesPacks/DayYears UsedDateSmoking Tobacco: Every DayCigarettes Passive Smoke Exposure: Current Tobacco Cessation:Ready to Q uit: Not Asked; Counseling Given: Not Answered Alcohol UseStandard Drinks/WeekCommentsNever0 (1 standard drink = 0.6 oz pure alcohol)PHQ-2AnswerDate RecordedPatient Health Questionnaire-2 Bfrei444 CommentsUnknownSex and Gender InformationValueDate RecordedSex Assigned at BirthNot on fileLegal TeyHjooty25/15/2023 7:25 PM EDTGender IdentityNot on fileSexual OrientationNot on file Last Filed Vital Signs Vital SignReadingTime TakenCommentsBlood Pdsgmmcr217/8808 1:03 PM EDT Yrpfm148306/10/2025 1:03 PM YYEHmnyujqfcnc51.7 ??C (98.1 ??F)06/10/2025 1:03 PM EDTRespiratory Stkj8663 1:03 PM EDTOxygen Jsvcngubft29%06/10/2025 1:03 PM EDTInhaled Oxygen Concentration--Nfxbup02.5 kg (140 lb)06/10/2025 1:03 PM EDT Whddcf431.6 cm (5' 4 )12/25/2024 1:52 PM ESTBody Mass Index24.03012/25/2024 1:52 PM EST Plan of Treatment Not on file Procedures Procedure NamePriorityDate/TimeAssociated DiagnosisCommentsXR HIP 2-3 VIEWS LEFT Jqbzaje0209/03/2025 1:23 PM EDTfrom Last 3 Months Results * XR HIP 2-3 VIEWS LEFT (09/03/2025 1:23 PM EDT)Anatomical RegionLaterality ModalityRadiographic Imaging Narrative Authorizing ProviderResult TypeResult StatusLisa Chaucyndi NPIMG XR PROCEDURES Final Result from Last 3 Months Insurance Care Teams Team MemberRelationshipSpecialtyStart DateEnd Date Ethan Bonilla MD PCP - GeneralFamily Jyjyzyvp94/10/24 Keira Church NP Nurse PractitionerPiedmont Augusta08/15/24
[2025-10-23 15:20] LABS: Hematocrit 45.4 % (36.0-48.0); Hemoglobin 14.9 g/dL (12.0-16.0); Immature Granulocytes Abs Auto 0.01 10^3/uL (0.00-0.03); Immature Granulocytes Pct Auto 0.2 % (0.0-0.5); Lymphocytes Absolute Auto 2.3 10^3/uL (1.2-3.8); Mean Corpuscular HGB Conc 32.8 g/dL (29.9-35.2); Mean Corpuscular Hemoglobin 34.3 pg (26.7-34.0); Mean Corpuscular Volume 104.6 fL (81.0-99.0); Platelet Count 338 10^3/uL (150-450); Red Blood Count 4.34 10^6/uL (4.20-5.40); White Blood Count 6.5 10^3/uL (4.0-11.0)
[2025-10-23 15:47] LABS: Alanine Aminotransferase 27 U/L (14-59); Albumin Globulin Ratio 1.1; Albumin Level 3.6 g/dL (3.4-5.0); Alkaline Phosphatase 105 U/L (46-116); Anion Gap 8.6; Aspartate Amino Transferase 23 U/L (15-37); Blood Urea Nitrogen 18.0 mg/dL (7.0-18.0); Calcium 8.7 mg/dL (8.5-10.1); Carbon Dioxide 33.3 mmol/L (21.0-32.0); Chloride 105 mmol/L (98-107); Estimated GFR (African America >60 (>=60 mL/min/1.73m^2); Estimated GFR (Non-African Ame 57 (>=60 mL/min/1.73m^2); Globulin 3.3 g/dL; Glucose 84 mg/dL (74-106); Iron 74.0 ug/dL (50.0-170.0); Percent Iron Saturation 24.7 %; Potassium 3.9 mmol/L (3.5-5.1); Sodium 143 mmol/L (136-145); Total Iron Binding Capacity 299.0 ug/dL (250.0-450.0); Total Protein 6.9 g/dL (6.4-8.2)
[2025-10-23 16:04] LABS: Ferritin 132.0 ng/mL (8.0-252.0)
== END 2025-10-23 14:59 | disposition home or self-care (01) ==
LOC: LAB 15:02
PROVIDERS: PCP Nurse Practitioner; Visit Provider Internal Medicine Hematology & Oncology
DX: D47.3 Essential (hemorrhagic) thrombocythemia (principal); D72.829 Elevated white blood cell count, unspecified; R71.8 Other abnormality of red blood cells
CPT/HCPCS: 36415; 80053; 82728; 83540; 83550; 85025